=== PATIENT | female | born 1950 | race Caucasian/White ===

== ENCOUNTER 2020-04-26 08:04 | Outpatient (RCR) | payer MEDICARE, OTHER, SELFPAY ==
[2020-04-26] MEDS: COVID-19 VACC, MRNA(PFIZER)/PF 30 MCG/0.3 ML SYRINGE IM (12:57)
[2020-05-17] MEDS: COVID-19 VACC, MRNA(PFIZER)/PF 30 MCG/0.3 ML SYRINGE IM (12:56)
== END 2020-07-24 23:59 ==
LOC: IMMUN 08:04
PROVIDERS: PCP Family Medicine; Visit Provider Family Medicine
DX: Z23 Encounter for immunization (principal)
CPT/HCPCS: 0001A; 0002A; 91300

== ENCOUNTER → 2022-04-11 | Outpatient (CLI) | payer MEDICARE, SELFPAY ==
[2022-04-11 10:07] LABS: Erythrocyte Sedimentation Rate 27 mm/hr (0-30)
[2022-04-11 10:11] LABS: Absolute Lymphocyte Count 2.68 X10^3/uL (0.83-4.51); Absolute Neutrophil Count 4.6 X10^3/uL (2.0-7.7); Basophil# 0.07 X10^3/uL; Basophil% 0.9 % (0-1); Eosinophil# 0.31 X10^3/uL; Eosinophils% 3.8 % (0-5); Hematocrit 34.6 % (37-47); Hemoglobin 10.6 g/dL (12.0-15.0); Lymphocyte # 2.68 X10^3/ul (0.83-4.51); Lymphocyte % 33.1 % (19-41); Mean Corp Hgb Conc 30.6 g/dL (32-36); Mean Corpuscular Hgb 27.2 pg (27.0-32.0); Mean Corpuscular Volume 88.9 fL (81-99); Mean Platelet Vol. 8.9 fl (6.2-12.0); Monocyte# 0.43 X10^3/uL; Monocyte% 5.3 % (0-10); NRBC Flagged by Analyzer 0 % (0-5); Neutrophil # 4.59 X10^3/uL (2.7-7.7); Neutrophil % 56.7 % (47-70); Platelet Count 396 K/mm3 (150-450); RBC Distribution Width CV 14.2 % (11.6-14.6); RBC Distribution Width SD 45.7 fl (35.1-43.9); Red Blood Count 3.89 M/mm3 (4.2-5.4); White Blood Count 8.1 K/mm3 (4.4-11.0)
[2022-04-11 11:06] LABS: ALB/GLOB Ratio 0.8 RATIO (0.9-2.4); AST(SGOT) 19 U/L (15-37); Alanine Aminotransfer ALT/SGPT 27 U/L (13-56); Albumin, Serum 3.6 g/dL (3.2-5.0); Alkaline Phosphatase 56 U/L (45-117); Anion Gap 8 (5-15); BUN 23 mg/dL (7-18); BUN/Creat Ratio 20.9 RATIO (10-20); CRP 6.44 mg/L (0.0-3.0); Calcium,Total 9.3 mg/dL (8.5-10.1); Chloride 100 mmol/L (98-107); EST Glomerular Filtration Rate 52 mL/min (>60); Est Glom Filt Rate - Afr Amer 62 mL/min (>60); Globulin 4.3 g/dL (2.2-4.2); Glucose 163 mg/dL (74-106); LDH 161 U/L (84-246); Potassium 3.8 mmol/L (3.5-5.1); Protein, Total 7.9 g/dL (6.4-8.2); Sodium Level 138 mmol/L (136-145)
[2022-04-12 16:09] LABS: Anti-Centromere B Ab <0.2 AI (0.0-0.9); Anti-Chromatin <0.2 AI (0.0-0.9); Anti-Jo <0.2 AI (0.0-0.9); Anti-Scleroderma-70 AB <0.2 AI (0.0-0.9); RNP Ab <0.2 AI (0.0-0.9); SJOGREN'S Anti-SS-A test < 0.2 AI (0.0-0.9); SJOGREN'S Anti-SS-B test < 0.2 AI (0.0-0.9); Smith Ab <0.2 AI (0.0-0.9)
[2022-04-13 09:22] LABS: Anti-dsDNA Ab 1 IU/mL (0-9)
[2022-04-14 16:08] LABS: Endomysial Antibody IgA Negative (Negative)
[2022-04-14 21:04] LABS: Immunoglobulin A 297 mg/dL (64-422); t-Transglutaminase IgA <2 U/mL (0-3)
[2022-04-17 07:08] LABS: Albumin 3.5 g/dL (2.9-4.4); Alpha-1-Globulins 0.3 g/dL (0.0-0.4); Alpha-2-Globulins 1.1 g/dL (0.4-1.0); Cytoplasmic Ab (C-ANCA) <1:20 titer (Neg:<1:20); Gamma Globulin 1.2 g/dL (0.4-1.8); Immunoglobulin A 292 mg/dL (64-422); Immunoglobulin E 262 IU/mL (6-495); Immunoglobulin G 1182 mg/dL (586-1602); Immunoglobulin M 93 mg/dL (26-217); PROEL- TOTAL PROTEIN 7.3 g/dL (6.0-8.5)
[2022-04-17 18:35] LABS: IMMUNOFIXATION RESULT,S Comment: (.); Perinuclear Ab (P-ANCA) <1:20 titer (Neg:<1:20)
== END | disposition home or self-care (01) ==
LOC: CT 08:56 → LAB 09:41
PROVIDERS: PCP Family Medicine; Referring Provider Nurse Practitioner Adult Health; Visit Provider Nurse Practitioner Adult Health
DX: K52.9 Noninfective gastroenteritis and colitis, unspecified (principal); D64.9 Anemia, unspecified
CPT/HCPCS: 36415; 80053; 82784; 82785; 83516; 83615; 84165; 85025; 85652; 86140; 86225; 86235; 86255; 86256; 86334

== ENCOUNTER → 2022-04-12 | Outpatient (CLI) | payer MEDICARE, SELFPAY ==
[2022-04-17 18:38] LABS: Calprotectin, Stool 94 ug/g (0-120)
== END | disposition home or self-care (01) ==
LOC: LABSPEC 08:26
PROVIDERS: PCP Family Medicine; Visit Provider Nurse Practitioner Adult Health
DX: K52.9 Noninfective gastroenteritis and colitis, unspecified (principal); D84.9 Immunodeficiency, unspecified
CPT/HCPCS: 83630; 83993; 87493; 87506

== ENCOUNTER → 2022-04-17 | Outpatient (CLI) | payer MEDICARE, SELFPAY ==
--- NOTE | 2022-04-17 08:00 | CT_ITS ---
STUDY: CT ABDOMEN AND PELVIS WITH CONTRAST REASON FOR EXAM: Female, 72 years old. Lower abd pain, chronic diarrhea, anemia RADIATION DOSAGE (If Supplied By Facility): CTDIvol = ( 16.38 ) mGy, DLP = ( 1017.65 ) mGycm TECHNIQUE: Transaxial images were obtained from the dome of the diaphragm to the symphysis pubis with oral contrast. Oral and amp; IV Read i-CAT and amp; 100mL Isovue-370 was administered. Sagittal and coronal images were reconstructed. Individualized dose optimization techniques were used for this CT. COMPARISON: None. FINDINGS: The visualized lung bases are unremarkable. The visualized portions of the heart are within normal limits. There is decreased attenuation of the liver consistent with steatosis. There are surgical clips in the gallbladder fossa consistent with a prior cholecystectomy. Normal spleen. Normal pancreas. There is a small, circumscribed, smooth, low attenuation left adrenal mass, consistent with an adrenal adenoma. This measures 1.3 cm. Normal right adrenal gland. Right renal cysts. The largest cyst in the right kidney measures 6.5 cm x 4.3 cm. There is fullness of the left renal pelvis although no phoenix hydronephrosis seen. There is a small hiatal hernia. Normal small intestine. Normal colon. The appendix is visualized and appears normal. There is scattered atherosclerotic calcification of the abdominal aorta and its major visceral branches, without a demonstrated aneurysm. Normal inferior vena cava. Normal retroperitoneum. The urinary bladder is not completely distended at this time. There is absence of the uterus consistent with a prior hysterectomy. There is a small umbilical hernia containing fat. There are mild degenerative changes of the visualized lumbar spine. CT/Abdomen/Pelvis WITH Contrast IMPRESSION: Right renal cysts. Small left adrenal adenoma. Fenestration of the liver. Prior cholecystectomy and hysterectomy. Electronically Signed: Yovani Saavedra MD at 10:11 EST ,
== END | disposition home or self-care (01) ==
LOC: CT 07:59
PROVIDERS: PCP Family Medicine; Referring Provider Nurse Practitioner Adult Health; Visit Provider Nurse Practitioner Adult Health
DX: R10.32 Left lower quadrant pain (principal)
CPT/HCPCS: 74177; Q9967

== ENCOUNTER 2022-06-19 10:24 | Day surgery (SDC) | payer MEDICARE, SELFPAY ==
[2022-06-19] VITALS (7 sets, daily range): BP systolic 110–152; BP diastolic 36–52; PULSE 59–63; RESP 16; TEMP 36–36.6; O2SAT 94–100; BMI 32.4
--- NOTE | 2022-06-19 10:46 | HP.PCM_ITS ---
History and Physical Date of Admission: 06/19/22 72 F who presents to the office today to establish with GI for chronic diarrhea which began in approx 2017, about a year before she had cholecystectomy. No change in her bowels after cholecystectomy. She gets urgent diarrhea, mostly loose or watery stools, rare formed stools, can have multiple bouts of diarrhea per day, has accidents because of the urgency, no nocturnal diarrhea. Not necessarily related to eating. No particular triggers. Now taking 1/2 packet of cholestyramine daily (was constipated on a full packet), then stool is soft and almost formed, but still some days with diarrhea. Gets lots of cramping pain in lower abd, today LLQ, that precedes the diarrhea. No melena or hematochezia. Recently told she has anemia, and that she needs eval for GIB. Last colonoscopy 06/2018--negative bxs for microscopic colitis, had 2 tubular adenomas. Last EGD was 2012. On vitamin B 12 for about a year. Has been on metformin for many years. She takes omeprazole 40 mg daily, that controls her heartburn. She has occasional nausea, no vomiting. No dysphagia. No early satiety. Normal appetite. Weight is stable. PMH includes DM2, vitamin B 12 deficiency, GERD, HTN, hyperlipidemia PSH: cholecystectomy Exam Const General: cooperative, comfortable and no acute distress Nutritional Appearance: obese Orientation: alert, awake and oriented x3 HENMT Head: normal to inspection Eyes Conjunctivae: conjunctivae normal Sclera: sclerae normal Chest Chest palpation & inspection: normal inspection of the chest Resp Effort & Inspection: normal respiratory effort GI Inspection: normal to inspection Palpation: soft, no hepatosplenomegaly, no masses and nontender General: bladder normal to palpation Bimanual Exam- Vagina & Uterus: bladder normal to palpation Skin General: no rashes or lesions noted Neuro Speech: speech normal Gait: normal gait Psych Mood: congruent mood Quality Reporting Tobacco Screening ([facility] 138) Smoking Status: Never smoker Assessment and Plan Assessment and Plan (1) Chronic diarrhea: ?Status:?Chronic ?Plan: 72 yr old female with chronic diarrhea, some improvement with cholestyramine. DDx includes microscopic colitis, bile acid diarrhea, diverticular disease/SCAD, infection, IBS, IBD. Try 1/2 and 1/2 mixture of cholestyramine and psyllium husk Add dicyclomine 10 mg bid Blood tests today, stool tests for infection and inflammation CT abd pel w/ oral and IV EGD and colonoscopy, f/u 2 wks later to discuss bx results She hopes to travel out of state with family in July (2) Anemia: ?Plan: Will get recent lab results from primary care EGD and colonoscopy (3) GERD (gastroesophageal reflux disease): ?Status:?Chronic ?Plan: Continue omeprazole Get EGD to eval for keyes's, gastritis, enteritis ? ? ? Orders: Orders CRP Today K52.9 - Noninfective gastroenteritis and colitis, unspecified ? Erythrocyte Sed Rate Today K52.9 - Noninfective gastroenteritis and colitis, unspecified ? Calprotectin, Stool Today K52.9 - Noninfective gastroenteritis and colitis, unspecified ? ENTERIC PATHOGEN PANEL STOOL Today D84.9 - Immunodeficiency, unspecified, K52.9 - Noninfective gastroenteritis and colitis, unspecified, K58.9 - Irritable bowel syndrome without diarrhea ? Stool Lactoferrin/WBC Today K52.9 - Noninfective gastroenteritis and colitis, unspecified, K58.9 - Irritable bowel syndrome without diarrhea ? Celiac Disease Profile Today K52.9 - Noninfective gastroenteritis and colitis, unspecified ? CDIFF (PCR) Today K52.9 - Noninfective gastroenteritis and colitis, unspecified ? Comprehensive Metabolic Profil Today K52.9 - Noninfective gastroenteritis and colitis, unspecified ? LDH Today K52.9 - Noninfective gastroenteritis and colitis, unspecified ? CBC W/Diff, Automated Today D64.9 - Anemia, unspecified, K52.9 - Noninfective gastroenteritis and colitis, unspecified ? JENNIFER Comprehensive Panel Today K52.9 - Noninfective gastroenteritis and colitis, unspecified ? ANCA Today K52.9 - Noninfective gastroenteritis and colitis, unspecified ? Immunoglobulins G/A/M/E Today K52.9 - Noninfective gastroenteritis and colitis, unspecified ? SANTI + Protein Elect, Serum Today K52.9 - Noninfective gastroenteritis and colitis, unspecified ? Abdomen/Pelvis WITH Contrast Today R10.30 - Lower abdominal pain, unspecified ? Medications: New dicyclomine 10 mg? PO BID 60 caps 3RF ? ? I have examined the patient and the H&P has been reviewed. There are no clinical changes since date of exam.
[2022-06-19] MEDS: Lactated Ringers 1,000 ML 15 ML IV (10:49)
--- NOTE | 2022-06-19 11:30 | COLBX_PTH ---
PATIENT: TIFFANY AYERS LOC: EN U#:[id number] AGE/SX: 72/F ROOM: RE06/19/[address]: Dr. Chapin Underwood DO : 1950 BED: DIS: 06/19/2022 SPEC #: [id number] RECD: 06/19/22 14:53 STATUS: JUAN MANUEL REJeniffer #: [id number] ADEN: 06/19/22 11:[address]: Chapin Underwood DEPT: SURGICAL PATHOLOGY RECD BY: Melinda Rodriguez ENTERED: 06/20/22 12:30 SP TYPE: COLON BX OTHR DR: Dr. Alpesh Marroquin DO Tissues: A - Duodenum, NOS B - Ileum, NOS C - COLON BIOPSY Procedures: Surgery Specimen Level IV HEADER OPERATION: Colonoscopy with biopsies, EGD with biopsy ([facility]) PRE-OP DIAGNOSIS: Chronic diarrhea, anemia TISSUE SUBMITTED: A ? Duodenum biopsy, B ? Terminal ileum biopsy, C ? Random colon biopsy MICROSCOPIC DIAGNOSIS A. Duodenum, biopsy: No pathologic change. B. Terminal ileum, biopsy: No pathologic change. C. Colon, random biopsy: No pathologic change. AM:abel 06/23/2022 MICROSCOPIC DESCRIPTION Slides are reviewed. GROSS DESCRIPTION A - Received in fixative is one container labeled with the patient's name and designated duodenum biopsy. The specimen consists of two irregular fragments of light sumner soft tissue that in aggregate measure 1.0 x 0.5 x 0.1 cm. The specimen is totally submitted in one cassette. B - Received in fixative is one container labeled with the patient's name and designated terminal ileum biopsy. The specimen consists of two irregular fragments of light sumner soft tissue that in aggregate measure 0.8 x 0.5 x 0.1 cm. The specimen is totally submitted in one cassette. C - Received in fixative is one container labeled with the patient's name and designated random colon biopsy. The specimen consists of multiple irregular fragments of light sumner soft tissue that in aggregate measure 1.5 x 0.5 x 0.1 cm. The specimen is totally submitted in one cassette. / BENJI:abel 06/20/2022 TC:5 CPT: 42196 x3
--- NOTE | 2022-06-19 12:24 | OP.EGD_ITS ---
Patient Name: Cata Bosch Procedure Date: 06/19/2022 11:47 AM Date of : 1950 Age: 72 Procedure: Upper GI endoscopy Indications: Iron deficiency anemia Providers: Chapin Underwood DO Referring MD: Chapin Underwood DO Medicines: Monitored Anesthesia Care Patient Profile: This is a 72 year old female. Refer to note in patient chart for documentation of history and physical. Patient has symptoms of chronic abdominal cramping and chronic dyspepsia. Complications: No immediate complications. Procedure: Pre-Anesthesia Assessment: - Prior to the procedure, a History and Physical was performed, and patient medications and allergies were reviewed. The risks and benefits of the procedure and the sedation options and risks were discussed with the patient. All questions were answered and informed consent was obtained. Patient identification and proposed procedure were verified by the physician in the pre-procedure area. Mental Status Examination: alert and oriented. Airway Examination: normal oropharyngeal airway and neck mobility. Respiratory Examination: clear to auscultation. CV Examination: normal. Prophylactic Antibiotics: The patient does not require prophylactic antibiotics. Prior Anticoagulants: The patient has taken no previous anticoagulant or antiplatelet agents. ASA Grade Assessment: II - A patient with mild systemic disease. After reviewing the risks and benefits, the patient was deemed in satisfactory condition to undergo the procedure. The anesthesia plan was to use monitored anesthesia care (MAC). Immediately prior to administration of medications, the patient was re-assessed for adequacy to receive sedatives. The heart rate, respiratory rate, oxygen saturations, blood pressure, adequacy of pulmonary ventilation, and response to care were monitored throughout the procedure. The physical status of the patient was re-assessed after the procedure. After obtaining informed consent, the endoscope was passed under direct vision. Throughout the procedure, the patient's blood pressure, pulse, and oxygen saturations were monitored continuously. The pediatric colonoscope was introduced through the mouth, and advanced to the second part of duodenum. The upper GI endoscopy was accomplished without difficulty. The patient tolerated the procedure well. Scope In: 11:55:26 AM Scope Out: 12:00:30 PM Total Procedure Duration Time 0 hours 5 minutes 4 seconds Findings: The examined esophagus was normal. The entire examined stomach was normal. A small hiatal hernia was present. Patchy mildly erythematous mucosa without active bleeding and with no stigmata of bleeding was found in the duodenal bulb and in the second portion of the duodenum. Biopsies were taken with a cold forceps for histology. Verification of patient identification for the specimen was done. Estimated blood loss was minimal. Impression: - Normal esophagus. - Normal stomach. - Small hiatal hernia. - Erythematous duodenopathy. Biopsied. Recommendation: - Discharge patient to home. - Resume previous diet. - Continue present medications. - Await pathology results. Procedure Code(s): --- Professional --- 15618, Esophagogastroduodenoscopy, flexible, transoral; with biopsy, single or multiple CPT copyright 2017 [employer]. All rights reserved. The codes documented in this report are preliminary and upon slasher operator review may be revised to meet current compliance requirements. Chapin Underwood DO 06/19/2022 12:23:37 PM This report has been signed electronically. Number of Addenda: 0 Note Initiated On: 06/19/2022 11:47 AM
--- NOTE | 2022-06-19 12:24 | OP.CCLET_ITS ---
06/19/2022 Alpesh Marroquin Re : Upper GI endoscopy procedure for Cata Bosch Dear Lopez This procedure was performed on June. My impressions and recommendations are as follows: Impressions : - Normal esophagus. - Normal stomach. - Small hiatal hernia. - Erythematous duodenopathy. Biopsied. Recommendations : - Discharge patient to home. - Resume previous diet. - Continue present medications. - Await pathology results. My findings are described in the full procedure note, which is enclosed. If I can be of further assistance, please feel free to contact me at . Sincerely, Chapin Underwood, 06/19/2022 12:23:37 PM This report has been signed electronically.
--- NOTE | 2022-06-19 12:31 | OP.COLON_ITS ---
Patient Name: Cata Bosch Procedure Date: 06/19/2022 12:01 PM Date of : 1950 Age: 72 Procedure: Colonoscopy Indications: Chronic diarrhea, Iron deficiency anemia Providers: Chapin Underwood DO Referring MD: Chapin Underwood DO Medicines: Monitored Anesthesia Care Patient Profile: This is a 72 year old female. Refer to note in patient chart for documentation of history and physical. Patient has symptoms of chronic abdominal cramping and chronic dyspepsia. Last Colonoscopy: several years ago. Complications: No immediate complications. Procedure: Pre-Anesthesia Assessment: - Prior to the procedure, a History and Physical was performed, and patient medications and allergies were reviewed. The risks and benefits of the procedure and the sedation options and risks were discussed with the patient. All questions were answered and informed consent was obtained. Patient identification and proposed procedure were verified by the physician in the pre-procedure area. Mental Status Examination: alert and oriented. Airway Examination: normal oropharyngeal airway and neck mobility. Respiratory Examination: clear to auscultation. CV Examination: normal. Prophylactic Antibiotics: The patient does not require prophylactic antibiotics. Prior Anticoagulants: The patient has taken no previous anticoagulant or antiplatelet agents. ASA Grade Assessment: II - A patient with mild systemic disease. After reviewing the risks and benefits, the patient was deemed in satisfactory condition to undergo the procedure. The anesthesia plan was to use monitored anesthesia care (MAC). Immediately prior to administration of medications, the patient was re-assessed for adequacy to receive sedatives. The heart rate, respiratory rate, oxygen saturations, blood pressure, adequacy of pulmonary ventilation, and response to care were monitored throughout the procedure. The physical status of the patient was re-assessed after the procedure. After I obtained informed consent, the scope was passed under direct vision. Throughout the procedure, the patient's blood pressure, pulse, and oxygen saturations were monitored continuously. The pediatric colonoscope was introduced through the anus and advanced to the terminal ileum. The colonoscopy was performed without difficulty. The patient tolerated the procedure well. The quality of the bowel preparation was good. Scope In: 12:03:06 PM Scope Withdrawal Time 0 hours 10 minutes 18 seconds Scope Out: 12:16:47 PM Total Procedure Duration Time 0 hours 13 minutes 41 seconds Findings: The perianal and digital rectal examinations were normal. An area of mildly congested mucosa was found in the sigmoid colon, at the splenic flexure, at the hepatic flexure and in the ascending colon. Biopsies were taken with a cold forceps for histology. Verification of patient identification for the specimen was done. Estimated blood loss was minimal. One small patchy angiodysplastic lesion with bleeding was found [Site]. Coagulation for hemostasis using monopolar probe was successful. Estimated blood loss was minimal. The terminal ileum contained two small angiodysplastic lesions with bleeding. Coagulation for hemostasis using heater probe was successful. Estimated blood loss was minimal. Impression: - Congested mucosa in the sigmoid colon, at the splenic flexure, at the hepatic flexure and in the ascending colon. Biopsied. - One bleeding colonic angiodysplastic lesion. Treated with a monopolar probe. - Two bleeding angiodysplastic lesions in the ileum. Treated with a heater probe. Recommendation: - Discharge patient to home. - Resume previous diet. - Continue present medications. - Await pathology results. - No repeat colonoscopy due to age. Procedure Code(s): --- Professional --- 27027, 59, Colonoscopy, flexible; with control of bleeding, any method 76843, Colonoscopy, flexible; with biopsy, single or multiple CPT copyright 2017 [employer]. All rights reserved. The codes documented in this report are preliminary and upon auditing coder review may be revised to meet current compliance requirements. Chapin Underwood DO 06/19/2022 12:31:07 PM This report has been signed electronically. Number of Addenda: 0 Note Initiated On: 06/19/2022 12:01 PM
--- NOTE | 2022-06-19 12:31 | OP.CCLET_ITS ---
06/19/2022 Alpesh Marroquin Re : Colonoscopy procedure for Cata Bosch Dear Lopez This procedure was performed on June. My impressions and recommendations are as follows: Impressions : - Congested mucosa in the sigmoid colon, at the splenic flexure, at the hepatic flexure and in the ascending colon. Biopsied. - One bleeding colonic angiodysplastic lesion. Treated with a monopolar probe. - Two bleeding angiodysplastic lesions in the ileum. Treated with a heater probe. Recommendations : - Discharge patient to home. - Resume previous diet. - Continue present medications. - Await pathology results. - No repeat colonoscopy due to age. My findings are described in the full procedure note, which is enclosed. If I can be of further assistance, please feel free to contact me at . Sincerely, Chapin Underwood, 06/19/2022 12:31:07 PM This report has been signed electronically.
== END 2022-06-19 13:22 | disposition home or self-care (01) ==
LOC: EN 10:25 → AC 10:28
PROVIDERS: PCP Family Medicine; Referring Provider Family Medicine; Visit Provider Internal Medicine Gastroenterology
PROC: 0DJD8ZZ Inspection of Lower Intestinal Tract, Via Natural or Artificial Opening Endoscopic (ICD-10-PCS; CPT 45378; principal; 2022-06-19 11:25)
DX: K52.9 Noninfective gastroenteritis and colitis, unspecified (principal); E11.9 Type 2 diabetes mellitus without complications; K44.9 Diaphragmatic hernia without obstruction or gangrene; D50.0 Iron deficiency anemia secondary to blood loss (chronic); K63.9 Disease of intestine, unspecified; Z90.49 Acquired absence of other specified parts of digestive tract; I10 Essential (primary) hypertension; Z79.899 Other long term (current) drug therapy; E78.00 Pure hypercholesterolemia, unspecified
CPT/HCPCS: 45380; 43239; 45382; 88305; J7120

== ENCOUNTER → 2022-07-16 | Outpatient (CLI) | payer MEDICARE, SELFPAY ==
[2022-07-16 10:23] LABS: Absolute Lymphocyte Count 2.87 X10^3/uL (0.83-4.51); Absolute Neutrophil Count 3.6 X10^3/uL (2.0-7.7); Basophil# 0.07 X10^3/uL; Basophil% 0.9 % (0-1); Eosinophil# 0.33 X10^3/uL; Eosinophils% 4.5 % (0-5); Hematocrit 34.3 % (37-47); Hemoglobin 10.3 g/dL (12.0-15.0); Lymphocyte # 2.87 X10^3/ul (0.83-4.51); Lymphocyte % 38.9 % (19-41); Mean Corpuscular Hgb 26.8 pg (27.0-32.0); Mean Corpuscular Volume 89.1 fL (81-99); Monocyte% 6.8 % (0-10); NRBC Flagged by Analyzer 0 % (0-5); Neutrophil # 3.59 X10^3/uL (2.7-7.7); Neutrophil % 48.6 % (47-70); Platelet Count 397 K/mm3 (150-450); RBC Distribution Width CV 14.2 % (11.6-14.6); RBC Distribution Width SD 46.3 fl (35.1-43.9); Red Blood Count 3.85 M/mm3 (4.2-5.4); White Blood Count 7.4 K/mm3 (4.4-11.0)
[2022-07-16 11:17] LABS: Ferritin 12 ng/mL (8-252); Iron 42 ug/dL (50-170); Iron Binding Capacity,Total 444 ug/dL (250-450); PERCENT IRON SATURATION 9.5 % (15.0-55.0)
== END | disposition home or self-care (01) ==
LOC: LAB 09:17
PROVIDERS: PCP Family Medicine; Referring Provider Nurse Practitioner Adult Health; Visit Provider Nurse Practitioner Adult Health
DX: K52.9 Noninfective gastroenteritis and colitis, unspecified (principal); D64.9 Anemia, unspecified
CPT/HCPCS: 36415; 82728; 83540; 83550; 85025

== ENCOUNTER 2024-06-10 16:30 | Emergency (ER) | payer MEDICARE, SELFPAY ==
[2024-06-10 16:33] VITALS: BP 136/64; PULSE 63; RESP 13; TEMP 36.5; O2SAT 95; BMI 31.4
--- NOTE | 2024-06-10 16:57 | EX.ED.DYSGE1 ---
HPI History of Present Illness Chief Complaint: General Illness Informant: patient Narrative Narrative: Presents by EMS from home states grandson called EMS patient states she may have passed out. Started on new diabetic medication 3 days ago Jardiance started by her primary care office. She states she stopped her metformin 10 days ago due to causing diarrhea. New medication was started she is currently on glimepiride with this. She states she is doing okay prior to starting the medication. Since then increasing nausea. States with EMS arrival she had a few emesis no hematemesis. No abdominal pain no chest pain no dyspnea. No fevers. She states she is feels fatigued and tired. Denies urinary symptoms. Prior similar symptoms: No PFSH PFSH Medical History Wears dentures Wears glasses Post-menopausal Diabetes Arthritis Kidney stones Fatty liver Anemia High cholesterol Dietary restriction Gastric reflux Non-smoker History of pain when walking History of edema Hypercholesteremia Type 2 diabetes mellitus Lumbar disc disease Cholelithiasis GERD (gastroesophageal reflux disease) Vitamin B12 deficiency Cystoid macular edema HTN (hypertension) Renal cyst Home Medications ?Medication ?Instructions ?Recorded ?Last Taken ?Type amlodipine 5 mg tablet 5 mg PO DAILY 04/02/22 06/19/22 09:30 History atorvastatin 10 mg tablet 10 mg PO DAILY 04/02/22 Unknown History cholestyramine (with sugar) 4 gram 0.5 ea PO QHS 04/02/22 Unknown History oral powder glimepiride 4 mg tablet 4 mg PO DAILY 04/02/22 Unknown History mecobalamin (vitamin B12) 500 mcg 500 mcg PO DAILY 04/02/22 Unknown History chewable tablet metformin 500 mg tablet 1,000 mg PO BID 04/02/22 Unknown History omeprazole 40 mg capsule,delayed 40 mg PO DAILY 04/02/22 Unknown History release losartan 100 1 tab PO DAILY 06/17/22 Unknown History mg-hydrochlorothiazide 12.5 mg tablet dicyclomine 20 mg tablet 20 mg PO BID #180 tabs 07/16/22 Unknown Rx ondansetron 4 mg disintegrating 4 mg PO Q8H PRN PRN Nausea #10 tabs 06/10/24 Unknown Rx tablet Allergy/AdvReac Type Severity Reaction Status Date / Time kiwi Allergy Intermediate Swelling Verified 06/10/24 16:35 lisinopril Allergy Intermediate Other Verified 06/10/24 16:35 cat dander (cats) Allergy Itching Verified 06/10/24 16:40 Family History Father Prostate cancer Brother Hx of resection of large bowel PAD (peripheral artery disease) Mother Rheumatoid arthritis Sister Diabetes Brother Diabetes Surgical History History of partial hysterectomy History of cholecystectomy Social History Smoking Status: Never smoker alcohol intake: never ROS ROS ED Constitutional Constitutional ED: Denies chills, fever(s) or sweats ENT ENT ED: Denies sore throat Cardiovascular Cardiovascular: Reports other Details: Possible syncope ; Denies chest pain, leg edema, palpitations or racing heartbeat Respiratory/Chest Respiratory/Chest: Denies cough, dyspnea or dyspnea on exertion Gastrointestinal Gastrointestinal: Reports nausea and vomiting; Denies abdominal pain or diarrhea Genitourinary Genitourinary ED: Denies dysuria, hematuria or urinary frequency Musculoskeletal Musculoskeletal: Denies back pain, extremity pain or neck pain Integumentary Denies rash or wounds Neurologic Neurologic: Denies headache(s), paresthesias or weakness EXAM Physical Exam Const Vital Signs: 06/10/24 16:33 06/10/24 18:09 06/10/24 18:30 Temperature 97.7 F L Temperature Source Oral Pulse Rate 63 70 Respiratory Rate 13 Respiratory Effort Normal Non-Labored Blood Pressure 136/64 H 132/5 H Blood Pressure Mean 88 47 Pulse Ox 95 93 Oxygen Delivery Method Room Air Room Air 06/10/24 19:27 06/10/24 19:55 Temperature 97.7 F L Temperature Source Pulse Rate 64 64 Respiratory Rate 16 16 Respiratory Effort Blood Pressure 136/54 H 139/50 H Blood Pressure Mean 81 79 Pulse Ox 98 98 Oxygen Delivery Method Room Air Positive well nourished and well developed General Appearance ED: well developed and NAD HEENT Reports moist mucous membranes normocephalic and atraumatic Eyes General Eye ED: Yes normal appearance of both eyes Neck full ROM Chest Wall Chest: Negative for tenderness Resp normal respiratory effort and normal air movement Effort and Inspection: symmetric chest movement; Negative for respiratory distress Cardio regular rate, regular rhythm and no murmurs Peripheral Pulses: pulses 2+ throughout GI normal to inspection, nondistended, normoactive bowel sounds and non-tender Palpation: Negative for guarding or rebound tenderness present Extremity normal to inspection General Extremety ED: Negative for edema or tenderness General Extremity: Negative for edema Neuro oriented x3, CN's II-XII intact bilaterally and no sensory deficits noted Neuro Narrative: No focal deficits Sensorium / Orientation: awake and alert Skin no rashes or lesions noted and no wounds MDM MDM MDM Narrative Medical decision making narrative: Interventions / MDM: Differential diagnosis: Syncope, nausea vomiting, medication side effect Diagnosis considered but do not suspect: N/A My EKG interpretation: Sinus rate of 60, no ST or T wave changes QTc 438. Imaging independently reviewed and interpreted by myself: N/A External documents reviewed: N/A Test considered but not ordered:N/A ED course: Vital stable no focal deficits. Possible syncopal episode per patient. No prodromal chest pains or shortness of breath. EKG ordered. Symptoms worsen after starting Jardiance. She has nausea currently. IV established for labs urine fluids and Zofran ordered. Will reevaluate. Reevaluated labs are stable. Clinically feeling better she ambulated department no return of symptoms. She is able to tolerate oral fluids reevaluation. Prescription of Zofran to use as needed. She will discuss with her primary doctor with her Jardiance medication as she start having symptoms after this. family present. Following up with her doctor with return precautions. All questions were answered. Re-evaluation: stable Disposition discussed with patient/family/significant other: Patient and family Case discussed with consulting clinician: N/A This note was generated with [employer] dictation software. It may contain incorrect words, spelling, and punctuation that were not noted in checking the note before signing. Lab Data Attestation: I reviewed the patient's lab results. Labs: Laboratory Results - last 24 hr 06/10/24 06/10/24 16:53 18:10 WBC 9.0 RBC 3.76 L Hgb 10.4 L Hct 31.8 L MCV 84.6 MCH 27.7 MCHC 32.7 RDW Std Deviation 41.6 RDW Coeff of Nik 13.4 Plt Count 485 H MPV 9.0 Immature Gran % (Auto) 0.900 Neut % (Auto) 54.3 Lymph % (Auto) 35.7 Howell % (Auto) 6.6 Eos % (Auto) 1.6 Baso % (Auto) 0.9 Absolute Neuts (auto) 4.9 Absolute Lymphs (auto) 3.20 Nucleated RBC % 0 Sodium 139 Potassium 3.9 Chloride 99 Carbon Dioxide 22.4 Anion Gap 18 H BUN 24 H Creatinine 1.26 H Estim Creat Clear Calc 38.14 L Est GFR (MDRD) Non-Af 44 L BUN/Creatinine Ratio 19.2 Glucose 217 H Calcium 9.7 Urine Color Yellow Urine Clarity Clear Urine pH 6.0 Ur Specific [place] 1.010 Urine Protein Negative Urine Glucose (UA) 1000 H Urine Ketones 15 H Urine Occult Blood Negative Urine Nitrite Negative Urine Bilirubin Negative Urine Urobilinogen Normal Ur Leukocyte Esterase 25 H Urine RBC 0 SEEN Urine WBC 0-5 SEEN Ur Squamous Epith Cells 0-5 SEEN Urine Bacteria 0 SEEN Urine Mucus 0 SEEN Discharge Plan Triage Chief Complaint: General Illness ED Provider: Kendrick Nunes Dx/Rx/DC Orders Clinical Impression: Syncope, Nausea & vomiting, Diabetes Instructions: Causes of Syncope, ED Vomiting (Adult) Prescriptions: New ondansetron 4 mg tablet,disintegrating 4 mg PO Q8H PRN PRN (Reason: Nausea) Qty: 10 0RF No Action cholestyramine (with sugar) 4 gram powder 0.5 ea PO QHS metformin 500 mg tablet 1,000 mg PO BID amlodipine 5 mg tablet 5 mg PO DAILY atorvastatin 10 mg tablet 10 mg PO DAILY mecobalamin (vitamin B12) 500 mcg tablet,chewable 500 mcg PO DAILY glimepiride 4 mg tablet 4 mg PO DAILY omeprazole 40 mg capsule,delayed release(DR/EC) 40 mg PO DAILY dicyclomine 20 mg tablet 20 mg PO BID Qty: 180 3RF losartan-hydrochlorothiazide 100-12.5 mg tablet 1 tab PO DAILY Patient Comments: TAKE 1 TABLET BY MOUTH EVERY DAY Primary Care Provider: Alpesh Marroquin Referrals: Alpesh Marroquin DO [Primary Care Provider] - Activity Restrictions/Additional Instructions: Your EKG normal. Labs are stable. Glucose 217 in the lab. Discussed with your doctor your Jardiance causing your nausea symptoms. Hold the Jardiance for now until discussion with your doctor. Continue oral fluids for hydration. If you have recurrent syncopal episode, return to the ED for reevaluation. Print Language: Somali Disposition Disposition: Home, Self Care Discharge Date/Time: 06/10/24 20:02
[2024-06-10] MEDS: 0.9% Normal Saline (1000mL) 1,000 ML 1000 ML IV (17:03)
[2024-06-10] MEDS: Ondansetron 4 MG/2 ML Vial IV (17:04)
[2024-06-10 17:41] LABS: Bacteria 0 SEEN /hpf (None Seen); Mucous, Urine 0 SEEN /hpf (<or=2+); Red Blood Cells-Urine 0 SEEN /hpf (0-5)
[2024-06-10 18:11] LABS: Absolute Neutrophil Count 4.9 X10^3/uL (2.0-7.7); Basophil# 0.08 X10^3/uL; Basophil% 0.9 % (0-1); Eosinophil# 0.14 X10^3/uL; Eosinophils% 1.6 % (0-5); Hematocrit 31.8 % (37-47); Hemoglobin 10.4 g/dL (12.0-15.0); Lymphocyte % 35.7 % (19-41); Mean Corp Hgb Conc 32.7 g/dL (32-36); Mean Corpuscular Hgb 27.7 pg (27.0-32.0); Mean Corpuscular Volume 84.6 fL (81-99); Monocyte# 0.59 X10^3/uL; Monocyte% 6.6 % (0-10); NRBC Flagged by Analyzer 0 % (0-5); Neutrophil # 4.87 X10^3/uL (2.7-7.7); Neutrophil % 54.3 % (47-70); Platelet Count 485 K/mm3 (150-450); RBC Distribution Width CV 13.4 % (11.6-14.6); RBC Distribution Width SD 41.6 fl (35.1-43.9); Red Blood Count 3.76 M/mm3 (4.2-5.4)
[2024-06-10 18:14] LABS: Anion Gap 18 (5-15); BUN 24 mg/dL (4-19); BUN/Creat Ratio 19.2 RATIO (10-20); Calcium,Total 9.7 mg/dL (7.6-11.0); Carbon Dioxide 22.4 mmol/L (21.0-32.0); Chloride 99 mmol/L (98-108); Creatinine, Serum 1.26 mg/dL (0.70-1.20); EST Glomerular Filtration Rate 44 (>60); Estimated Creatinine Clearance 38.14 ml/min (50-250); Glucose 217 mg/dL (70-99); Potassium 3.9 mmol/L (3.3-5.1); Sodium Level 139 mmol/L (133-145)
[2024-06-10 18:30] VITALS: BP 132/5; PULSE 70; O2SAT 93
[2024-06-10 18:40] LABS: Color, Urine Yellow (Yellow); Glucose, Dipstick 1000 mg/dl (Normal); Ketone-Dipstick 15 mg/dl (Negative); Leukocyte Esterase-Dipstick 25 /ul (Negative); Nitrite-Dipstick Negative (Negative); Occult Blood-Urine Negative /ul (Negative); Protein-Dipstick Negative (Negative); Urine Bilirubin Dipstick Negative (Negative); Urine Clarity Clear (Clear); Urine Urobilinogen Normal (Normal)
[2024-06-10 19:07] LABS: Squamous Epithelial Cells - UA 0-5 SEEN /hpf (5-10)
[2024-06-10 19:08] LABS: White Blood Cells 0-5 SEEN /hpf (0-5)
[2024-06-10 19:27] VITALS: BP 136/54; PULSE 64; RESP 16; O2SAT 98
[2024-06-10 19:55] VITALS: BP 139/50; PULSE 64; RESP 16; TEMP 36.5; O2SAT 98
== END 2024-06-10 20:02 | disposition home or self-care (01) ==
PROVIDERS: Emergency Provider Emergency Medicine; PCP Family Medicine; Visit Provider Emergency Medicine
DX: R55 Syncope and collapse (principal); E11.9 Type 2 diabetes mellitus without complications; R11.2 Nausea with vomiting, unspecified; R19.7 Diarrhea, unspecified; E78.00 Pure hypercholesterolemia, unspecified; I10 Essential (primary) hypertension; K21.9 Gastro-esophageal reflux disease without esophagitis; Z79.84 Long term (current) use of oral hypoglycemic drugs; Z79.899 Other long term (current) drug therapy
CPT/HCPCS: 80048; 81001; 85025; 93005; 96361; 96374; 99285; A4216; J2405

== ENCOUNTER → 2024-09-27 | Outpatient (CLI) | payer MEDICARE, SELFPAY ==
[2024-09-27 11:02] LABS: Hematocrit 34.9 % (37-47); Hemoglobin 10.7 g/dL (12.0-15.0); Immature Granulocytes Count 0.030 X10^3/uL (0.0-0.0); Mean Corp Hgb Conc 30.7 g/dL (32-36); Mean Corpuscular Volume 91.4 fL (81-99); Mean Platelet Vol. 9.4 fl (6.2-12.0); NRBC Flagged by Analyzer 0 % (0-5); Platelet Count 333 K/mm3 (150-450); RBC Distribution Width CV 13.8 % (11.6-14.6); RBC Distribution Width SD 45.6 fl (35.1-43.9); Red Blood Count 3.82 M/mm3 (4.2-5.4); White Blood Count 7.7 K/mm3 (4.4-11.0)
== END | disposition home or self-care (01) ==
LOC: LAB 10:07
PROVIDERS: PCP Family Medicine; Referring Provider Student in an Organized Health Care Education/Training Program; Visit Provider Student in an Organized Health Care Education/Training Program
DX: D64.9 Anemia, unspecified (principal)
CPT/HCPCS: 36415; 85025

== ENCOUNTER 2024-11-10 06:34 | Day surgery (SDC) | payer MEDICARE, SELFPAY ==
--- NOTE | 2024-11-09 11:55 | PAT.ANE_ITS ---
Pre-Assessment Diagnosis/Proposed Procedure Planned Operative Procedure(s): COLONOSCOPY, EGD Anesthesia History Anesthesia History - blister packing machine tender: Anesthesia History - blister packing machine tender Hx Hospitalization No 11/07/24 10:47 Any Problems With Anesthesia Yes: PONV 11/07/24 10:47 Cholinesterase deficiency No 11/07/24 10:47 You/Your Family Experience No 11/07/24 10:47 fever (hyperthermia) with Relationship Recent Exposure to Contagious No 06/19/22 10:47 Disease Does patient have nerve No 11/07/24 10:47 stimulator Patient instructed to have device shut off --Does patient have Pacemaker or ICD? When Was Last Pacemaker Check QUESTION #4 FULL TEXT: You/Your Family Experience fever (hyperthermia) with Anesthesia Last Oral Intake Last Oral intake: Last Oral Intake NPO since Meds taken in AM with sips of water? Meds patient instructed to take am of surgery PONV PONV - blister packing machine tender: PONV - blister packing machine tender Female Yes 11/07/24 10:47 HX of Motion Sickness Yes 11/07/24 10:47 HX of N/V After Surgery Yes 11/07/24 10:47 Non-Smoker Yes 11/07/24 10:47 Duration of Surgery greater No 11/07/24 10:47 than 60 minutes Number of Risk Factors 4 11/07/24 10:47 PONV Score Severe Risk 11/07/24 10:47 Height & Weight Height & Weight: Anesthesia: Height & Weight Height 5 ft 3 in 06/10/24 16:33 Respiratory Assessment Respiratory Assessment - blister packing machine tender: Respiratory Tract Infection Hx - blister packing machine tender Hx Respiratory Tract Infection No 11/07/24 10:47 STOP Sleep Apnea STOP Sleep Apnea - blister packing machine tender: STOP Sleep Apnea - blister packing machine tender Hx Hypertension Yes: PER PT, CONTROLLED ON 11/07/24 10:47 MEDS Hx Sleep Apnea No 11/07/24 10:47 CPAP BIPAP Do you snore loudly (louder No 11/07/24 10:47 than talking or can be heard Do you often feel tired/ No 11/07/24 10:47 fatigued/ sleepy during daytime? Has anyone observed you stop No 11/07/24 10:47 breathing during sleep? STOP Results Negative 11/07/24 10:47 QUESTION #5 FULL TEXT : Do you snore loudly (louder than talking or can be heard through closed doors)? Tobacco Use History Tobacco Use History - blister packing machine tender: Tobacco Use History - blister packing machine tender Tobacco Use Smoking Status Never smoker 11/07/24 10:47 Hx Tobacco Use No 11/07/24 10:47 Years Smoking Packs Smoked per Day Smoking Cessation Date was within the last 15 years Hx Smoking Cessation Date Hx Smoking Cessation Counseling Hematologic Medial History Hematologic Hx - blister packing machine tender: Hematologic Medical Hx - rn clinical documentation Hx of Blood Transfusion No 11/07/24 10:47 Hx of Transfusion in last 3 No 11/07/24 10:47 Months Date of Last Transfusion (if within last 3 months) Ever experience any problems No 11/07/24 10:47 with transfusion(s)? Specify any problems Hx of Preganancy in last 3 No 11/07/24 10:47 Months Nurse Filling Out Transfusion JUANPABLO 11/07/24 10:47 & Questions: Date: 11/07/24 11/07/24 10:47 Time: 10:49 11/07/24 10:47 Patient unable to answer at this time (ie. confused, unrespo /Reproduction History /Reproductive History - blister packing machine tender: /Reproductive Hx- blister packing machine tender Hx Now No 11/07/24 10:47 Gestational Age (in weeks): EDC: Hx Hx Para Hx Section SAB No 11/07/24 10:47 [facility] Medical History (Updated 11/07/24 @ 11:10 by Adali Hooper) Low iron Shortness of breath on exertion Leg cramps History of echocardiogram History of pulmonary embolism History of DVT (deep vein thrombosis) PONV (postoperative nausea and vomiting) Wears dentures Wears glasses Post-menopausal Diabetes Arthritis Kidney stones Fatty liver Anemia High cholesterol Dietary restriction Gastric reflux Non-smoker History of pain when walking History of edema Hypercholesteremia Type 2 diabetes mellitus Lumbar disc disease Cholelithiasis GERD (gastroesophageal reflux disease) Vitamin B12 deficiency Cystoid macular edema HTN (hypertension) Renal cyst Home Medications ?Medication ?Instructions ?Recorded ?Last Taken ?Type atorvastatin 10 mg tablet 10 mg PO DAILY 04/02/22 Unkn own History glimepiride 4 mg tablet 4 mg PO BID 04/02/22 Unknown History mecobalamin (vitamin B12) 500 mcg 500 mcg PO DAILY Unknown History chewable tablet omeprazole 40 mg capsule,delayed 40 mg PO DAILY Unknown History release losartan 100 0.5 tab PO QHS 06/17/22 Unkn own History mg-hydrochlorothiazide 12.5 mg tablet apixaban 2.5 mg tablet (Eliquis) 2.5 mg PO BID 5 11/06/24 History empagliflozin 25 mg tablet 25 mg PO QAM 09/27/2411/07 History (Jardiance) ferrous sulfate 325 mg (65 mg 325 mg PO BID 09/27/24 U nknown History iron) tablet Allergy/AdvReac Type Severity Reaction Status Date / Time kiwi Allergy Intermediate Swelling Verified 11/07/24 10:41 lisinopril Allergy Intermediate Other Verified 11/07/24 10:41 cat dander (cats) Allergy Itching Verified 11/07/24 10:41 Family History Father Prostate cancer Brother Hx of resection of large bowel PAD (peripheral artery disease) Mother Rheumatoid arthritis Sister Diabetes Brother Diabetes Surgical History (Updated 11/07/24 @ 10:47 by Adali Hooper) History of esophagogastroduodenoscopy (EGD) History of colonoscopy History of shoulder surgery History of partial hysterectomy History of cholecystectomy Social History Smoking Status: Never smoker alcohol intake: never Audit: Pertinent Findings Pertinent Findings EKG Perinent findings: EKG 06/10/2024. Normal sinus rhythm Echo (EF%) pertinent findings: Echo 11/17/2023 left ventricle size is normal. Mildly increased wall thickness. Normal left ventricular systolic function EF 58%. Normal wall motion. Right ventricular size is normal. Normal systolic function. Recommendation Anesthesia Recommendation Anesthesia recommendation: OPTIMIZED for anesthesia
[2024-11-10] VITALS (8 sets, daily range): BP systolic 112–146; BP diastolic 52–63; PULSE 52–62; RESP 12–16; TEMP 36.2–36.4; O2SAT 100; BMI 29.5
--- OUTSIDE RECORDS SUMMARY | 2024-11-10 06:40 | XMS RPT_ITS | CCD ---
Author Organization [facility] Care Team Providers Care Airveyor Operator Name Role Phone Alpesh Marroquin DO Primary Care Provider Dr. Alpesh Marroquin Primary Care Provider Dr. Alpesh Marroquin Referring Provider Chelly RETAIL DISTRICT MANAGER, RETAIL DISTRICT MANAGER-C Debi Castanon Attending Provider Alpesh Marroquin DO Primary Care Provider [phone] Dr. Alpesh Marroquin Primary Care Provider Dr. Alpesh Marroquin Referring Provider Chelly TOLENTINO, RETAIL DISTRICT MANAGER-C Debi Castanon Attending Provider FriendDr. Samson Attending Provider FriendDr. Samson Other Provider Dr. Alpesh Marroquin Primary Care Provider Dr. Alpesh Marroquin Referring Provider Chelly TOLENTINO RETAIL DISTRICT MANAGER-C Debi Castanon Attending Provider Alpesh Marroquin DO Primary Care Provider Kovacs DOesa E Unavailable Alpesh Marroquin DO Primary Care Provider Kovacs DOesa E Unavailable Dr. Alpesh Marroquin DO Primary Care Provider [phone] Dr. Kendrick Nunes DO Attending Provider Dr. Kendrick Nunes DO Emergency Provider Dr. Alpesh Marroquin DO Referring Provider Iman Gracia Attending Provider Iman Gracia Referring Provider PETRILLAALPESH Attending Unavailable PETRILLA, ALPESH Referring Unavailable PETRILLA, ALPESH Primary Care Unavailable MAGGIE, HARRY E Attending Unavailable PETRILLA, ALPESH Primary Care Unavailable MAGGIE, HARRY E Attending Unavailable PETRILLA, ALPESH Primary Care Unavailable MAGGIE, HARRY E Attending Unavailable PETRILLA, ALPESH Primary Care Unavailable MAGGIE, HARRY E Attending Unavailable PETRILLA, ALPESH Primary Care Unavailable MAGGIE, HARRY E Referring Unavailable MAGGIE, HARRY E Attending Unavailable PETRILLA, ALPESH Primary Care Unavailable MAGGIE, HARRY E Referring Unavailable PETRILLA, ALPESH Attending Unavailable PETRILLA, ALPESH Primary Care Unavailable SADA MACE Attending Unavailable PETRILLA, ALPESH Primary Care Unavailable IONAAYAAN Attending Unavailable IONA AYAAN Referring Unavailable PETRILLA, ALPESH Primary Care Unavailable SADA MACE Attending Unavailable SADA MACE Referring Unavailable PETRILLA, ALPESH Primary Care Unavailable PETRILLA, ALPESH Primary Care Unavailable PETRILLA, ALPESH Attending Unavailable PETRILLA, ALPESH Primary Care Unavailable SADA MACE Attending Unavailable PETRILLA, ALPESH Primary Care Unavailable MACESADA Merrill Attending Unavailable PETRILLA, ALPESH Primary Care Unavailable IONAAYAAN Munoz Attending Unavailable PETRILLA, ALPESH Primary Care Unavailable PETRILLA, ALPESH Attending Unavailable PETRILLA, ALPESH Referring Unavailable PETRILLA, ALPESH Primary Care Unavailable MAGGIE, HARRY E Attending Unavailable PETRILLA, ALPESH Primary Care Unavailable MAGGIE, HARRY E Referring Unavailable Iman Grullon Referring Unavailable Iman Grullon Attending Unavailable Petrilla, Alpesh Primary Care Unavailable Kendrick Nunes Attending Unavailable Petrilla, Alpesh Primary Care Unavailable Friend, Chapin Attending Unavailable Care Physician, No Primary Referring Unava ilable Care Physician, No Primary Primary Care Unava ilable Iman Grullon Attending Unavailable Petrilla, Alpesh Referring Unavailable Petrilla, Alpesh Primary Care Unavailable Unavailable Unavailable Unavailable Allergies Allergy Classification Reported Allergen(s) Allergy Type Date of Onset Reaction(s) Facility (1 source) kiwi fruit allergenic extract Drug Allergy 8 Swelling [facility] (9 sources) Lisinopril Drug Allergy 7 Other (See Comments) [facility] Work Phone: (18 sources) Seasonal allergy Propensity to adverse reactions to substance 8 [facility] kiwi Allergy to substance 3 Swelling [facility] (20 sources) Kiwi fruit Propensity to adverse reactions 8 Swelling [facility] (20 sources) Lisinopril Propensity to adverse reactions 7 Angioedema [facility] (20 sources) Other Propensity to adverse reactions 8 [facility] (20 sources) Cat Dander Allergy to substance 5 Itching [facility] (14 sources) metFORMIN Drug Allergy 5 Diarrhea [facility] (1 source) Lisinopril Drug Allergy 5 [facility] (1 source) kiwi Drug allergy (disorder) 5 [facility] (1 source) cat dander Drug allergy (disorder) 5 [facility] Medications Current Medications Medication Drug Class(es) Dates Sig (Normalized) Sig (Original) apixaban 2.5 mg oral tablet (20 sources) Factor Xa Inhibitor Start: 12-03-2023 End: 10-17-2024 take 1 tablet by mouth twice daily apixaban (Eliquis) 2.5 MG tablet Indications: Pulmonary embolism with acute cor pulmonale, unspecified chronicity, unspecified pulmonary embolism type (HCC) Take 1 tablet (2.5 mg) by mouth 2 times daily. 180 tablet 3 07/19/2024 Active Start: 05-02-2023 End: 12-03-2023 take 1 tablet by mouth twice daily apixaban (Eliquis) 5 MG tablet Take 1 tablet (5 mg) by mouth 2 times daily. 60 tablet 5 10/07/2023 12/03/2023 Discontinued Start: 05-01-2023 End: 05-02-2023 apixaban (Eliquis) tablet 10 mg atorvastatin 10 mg oral tablet (20 sources) HMG-CoA Reductase Inhibitor Start: 10-16-2021 End: 05-30-2024 take 1 tablet by mouth once daily atorvastatin (Lipitor) 10 MG tablet TAKE 1 TABLET (10 MG) BY MOUTH DAILY. 90 tablet 1 05/30/2024 Active Start: 08-23-2020 take 1 tablet by yoly th once daily atorvastatin (LIPITOR) 10 MG tablet Take 1 tablet by mouth daily 90 tablet 1 08/23/2020 Active benzonatate 100 mg oral capsule (6 sources) Non-narcotic Antitussive Start: 02-10-2023 End: 02-17-2023 take 1 capsule by mouth every eight hours benzonatate (Tessalon) 100 MG capsule Take 1 capsule (100 mg) by mouth in the morning and 1 capsule (100 mg) at noon and 1 capsule (100 mg) before bedtime. Do all this for 7 days. Do not crush or chew.. 21 capsule 0 02/10/2023 02/17/2023 Active doxycycline hyclate 100 mg oral capsule (2 sources) Tetracycline-class Drug Start: 04-07-2023 End: 04-17-2023 doxycycline (Vibramycin) 100 MG capsule Take 1 capsule (100 mg) by mouth 2 times daily for 10 days. Take with at least 8 ounces (large glass) of water, do not lie down for 30 minutes after 20 capsule 0 04/07/2023 04/17/2023 Active empagliflozin 25 mg oral tablet (20 sources) Sodium-Glucose Cotransporter 2 Inhibitor Start: 06-29-2024 End: 12-26-2024 take 1 tablet by mouth once daily empagliflozin (Jardiance) 25 MG Take 1 tablet (25 mg) by mouth daily. 90 tablet 1 06/29/2024 12/26/2024 Active Start: 06-14-2024 End: 09-12-2024 take 1 tablet by mouth once daily empagliflozin (Jardiance) 10 MG Indications: Type 2 diabetes mellitus without complication, without long-term current use of insulin (HCC) Take 1 tablet (10 mg) by mouth daily. 30 tablet 2 06/14/2024 09/12/2024 Active Start: 06-07-2024 End: 06-21-2024 take 1 tablet by mouth once daily empagliflozin (Jardiance) 25 MG Indications: Type 2 diabetes mellitus without complication, without long-term current use of insulin (HCC) Take 1 tablet (25 mg) by mouth daily for 14 days. 14 tablet 06/07/2024 06/14/2024 Discontinued ferrous sulfate 325 mg oral tablet (20 sources) Start: 07-26-2024 take 1 tablet by mouth twice daily ferrous sulfate 325 (65 Fe) MG tablet Indications: Iron deficiency anemia due to chronic blood loss , Vitamin B12 deficiency Take 1 tablet (325 mg) by mouth 2 times daily. 180 tablet 1 07/26/2024 Active Start: 01-31-2024 End: 07-26-2024 take 1 tablet by mouth once daily at breakfast ferrous sulfate 325 (65 Fe) MG tablet TAKE 1 TABLET BY MOUTH EVERY DAY WITH BREAKFAST 90 tablet 1 07/05/2024 Active End: 04-07-2023 take 1 tablet by mouth once daily at breakfast ferrous sulfate 325 (65 Fe) MG tablet Take 325 mg by mouth daily (with breakfast). 0 04/07/2023 Discontinued (Therapy completed) glimepiride 4 mg oral tablet (20 sources) Sulfonylurea Start: 06-14-2024 take 1 tablet by mouth twice daily glimepiride (Amaryl) 4 MG tablet Take 1 tablet (4 mg) by mouth 2 times daily. 180 tablet 1 06/14/2024 Active Start: 04-02-2022 take 1 tablet by yoly once daily Glimepiride 4 mg tablet Active 4 mg PO DAILY April 02, 2022 1:00am Start: 11-17-2021 End: 06-07-2024 take 1 tablet by mouth twice daily glimepiride (Amaryl) 4 MG tablet TAKE 1 TABLET (4 MG) BY MOUTH 2 TIMES DAILY 180 tablet 1 02/29/2024 06/07/2024 Discontinued (Side effects) Start: 08-23-2020 glimepiride (A MARYL) 4 MG tablet Inc to 4mg q BID 180 tablet 1 08/23/2020 Active hydroCHLOROthiazide 12.5 mg / losartan potassium 100 mg oral tablet (20 sources) Thiazide Diuretic, Angiotensin 2 Receptor Owen Start: 05-30-2024 take 1 tablet by mouth once daily losartan-hydroCHLOROthiazide (Hyzaar) 100-12.5 MG tablet TAKE 1 TABLET BY MOUTH EVERY DAY 90 tablet 1 05/30/2024 Active Start: 01-26-2024 End: 05-30-2024 losartan-hydroCHLOROthiazide (Hyzaar) 100-12.5 MG tablet Decrease to one half tab q AM 01/26/2024 05/30/2024 Discontinued Start: 06-17-2022 take 1 tablet by yoly th once daily Losartan-Hydrochlorothiazide Active 1 TA BLET PO DAILY June 17, 2022 12:00am Start: 06-07-2021 End: 01-26-2024 take 1 tablet by mouth once daily losartan-hydroCHLOROthiazide (Hyzaar) 100-12.5 MG tablet TAKE 1 TABLET BY MOUTH EVERY DAY 90 tablet 1 05/30/2024 Active Start: 02-21-2021 take 1 tablet by yoly th once daily losartan-hydroCHLOROthiazide (HYZAAR) 100-12.5 MG per tablet Take 1 tablet by mouth daily 90 tablet 1 02/21/2021 Active mecobalamin (8 sources) Start: 04-02-2022 take 1 tablet by mouth once daily Mecobalamin (Vitamin B12) 500 mcg tablet,chewable Active 500 ug PO DAILY April 02, 2022 1:00am Start: 04-02-2022 take 500 ug by mouth once eron y Mecobalamin (Vitamin B12) Active 500 MCG PO DAILY April 02, 2022 1:00am Start: 04-02-2022 Mecobalamin (V itamin B12) Active MCG PO April 02, 2022 12:00am meloxicam 15 mg oral tablet (1 source) Nonsteroidal Anti-inflammatory Drug Start: 08-23-2020 take 1 tablet by mouth once daily meloxicam (MOBIC) 15 MG tablet Take 1 tablet by mouth daily 90 tablet 1 08/23/2020 Active omeprazole 40 mg delayed release oral capsule (20 sources) Proton Pump Inhibitor Start: 04-02-2022 End: 11-21-2024 take 1 capsule by mouth once daily omeprazole (PriLOSEC) [address] capsule Take 1 capsule (40 mg) by mouth daily for 180 doses. 90 capsule 1 05/25/2024 11/21/2024 Active Start: 10-16-2021 End: 05-21-2023 take 1 capsule by mouth once daily omeprazole (PriLOSEC) [address] capsule Take 1 capsule (20 mg) by mouth daily. 90 capsule 1 03/06/2022 Active Start: 08-23-2020 take 1 tablet by yoly th once daily omeprazole (PRILOSEC OTC) 20 MG tablet Take 1 tablet by mouth daily 90 tablet 1 08/23/2020 Active vitamin b12 1 mg oral tablet (20 sources) Vitamin B12 Start: 07-26-2024 End: 07-26-2025 take 1 tablet by mouth once daily cyanocobalamin (Vitamin B-12) 1000 MCG tablet Indications: Iron deficiency anemia due to chronic blood loss , Vitamin B12 deficiency Take 1 tablet (1,000 mcg) by mouth daily. 90 tablet 3 07/26/2024 07/26/2025 Active Start: 10-29-2021 End: 05-01-2023 take 1 tablet by mouth once daily cyanocobalamin (Vitamin B-12) 500 MCG tablet Take 1 tablet (500 mcg) by mouth daily. 90 tablet 1 03/06/2022 Active Start: 08-26-2020 Cyanocobalamin (VITAMIN B12) 500 MCG TABS One q day indefinitely 100 tablet 5 08/26/2020 Active Completed/Discontinued Medications Medication Drug Class(es) Dates Sig (Normalized) Sig (Original) Acetaminophen (4 sources) Start: 05-01-2023 End: 05-02-2023 take 1 tablet by mouth every six hours as needed for pain and fever acetaminophen (Tylenol) tablet 650 mg Start: 02-10-2023 End: 02-10-2023 acetaminophen (Tylenol) tabl et 1,000 mg amLODIPine 10 mg oral tablet (20 sources) Dihydropyridine Calcium Channel Owen Start: 09-28-2023 End: 04-04-2024 take 1 tablet by mouth once daily amLODIPine (Norvasc) 10 MG tablet Take 1 tablet (10 mg) by mouth daily for 180 doses. 90 tablet 1 10/07/2023 01/26/2024 Discontinued (Alternate therapy) Start: 05-21-2023 End: 06-20-2023 take 1 tablet by mouth once daily amLODIPine (Norvasc) 10 MG tablet Take 1 tablet (10 mg) by mouth daily for 30 doses. 30 tablet 5 05/21/2023 Active Start: 11-14-2021 End: 05-21-2023 take 1 tablet by mouth once daily Amlodipine 5 mg tablet Active 5 mg PO DAILY April 02, 2022 1:00am Start: 08-23-2020 take 1 tablet by yoly th once daily amLODIPine (NORVASC) 10 MG tablet Take 1 tablet by mouth daily 90 tablet 1 08/23/2020 Active ascorbic acid 1000 mg oral tablet (15 sources) Vitamin C End: 04-07-2023 take 1 tablet by mouth once daily Ascorbic Acid (vitamin C) 1000 MG tablet Take 1,000 mg by mouth daily. 0 04/07/2023 Discontinued (Therapy completed) cholestyramine resin 4000 mg powder for oral suspension (20 sources) Bile Acid Sequestrant Start: 04-02-2022 End: 09-27-2024 Cholestyramine (With Sugar) 4 gram powder Discontinued 0.5 NMA PO AT BEDTIME April 02, 2022 1:00am September 27, 2024 9:34am Start: 06-09-2021 End: 04-07-2023 take 1 dose by mouth twice daily cholestyramine (Questran) 4 g packet MIX AND TAKE 1 PACKET BY MOUTH 2 TIMES DAILY. 60 packet 5 09/03/2022 04/07/2023 Discontinued (Reorder) Start: 02-21-2021 take 1 dose by mouth twice daily cholestyramine (QUESTRAN) 4 g packet Take 1 packet by mouth 2 times daily 60 packet 5 02/21/2021 Active Continuous Blood Gluc Receiv er (FreeStyle Javad 2 [place]) device (20 sources) Start: 03-06-2022 End: 05-01-2023 Continuous Blood Gluc Receiv er (FreeStyle Javad 2 [place]) device TEST GLUCOSE 4 TIMES DAILY BEFORE MEALS AND AT BEDTIME 0 03/06/2022 05/01/2023 Discontinued (Therapy completed) Start: 03-06-2022 Continuous Blo od Gluc Auto Body Technician (FreeStyle Javad 2 [place]) device TEST GLUCOSE 4 TIMES DAILY BEFORE MEALS AND AT BEDTIME 0 03/06/2022 Active Continuous Glucose Monitor S up kit (20 sources) Start: 03-06-2022 End: 05-01-2023 Continuous Glucose Monitor S up kit Test glucose 4 times daily before meals and at bedtime 1 kit 0 03/06/2022 05/01/2023 Discontinued (Therapy completed) Start: 03-06-2022 Continuous Glu cose Monitor Sup kit Test glucose 4 times daily before meals and at bedtime 1 kit 0 03/06/2022 Active Continuous Glucose Monitor S up misc (20 sources) Start: 03-06-2022 End: 05-01-2023 Continuous Glucose Monitor S up misc Test 4 times daily before meals and at bedtime 2 Device 11 03/06/2022 05/01/2023 Discontinued (Therapy completed) Start: 03-06-2022 Continuous Glu cose Monitor Sup misc Test 4 times daily before meals and at bedtime 2 Device 11 03/06/2022 Active dicyclomine hydrochloride 10 mg oral capsule (20 sources) Anticholinergic Start: 08-27-2023 End: 06-14-2024 take 1 capsule by mouth twice daily dicyclomine (Bentyl) 10 MG capsule TAKE 1 CAPSULE BY MOUTH TWICE A DAY 180 capsule 1 05/30/2024 06/14/2024 Discontinued (Med list cleanup) Start: 04-21-2022 End: 09-27-2024 take 1 tablet by mouth twice daily Dicyclomine 20 mg tablet Discontinued 20 mg PO TWICE A DAY 180 3 July 16, 2022 9:06am September 27, 2024 9:34am Start: 04-11-2022 End: 07-06-2023 take 1 capsule by mouth twice daily Dicyclomine 10 mg capsule Discontinued 10 mg PO TWICE A DAY 60 April 11, 2022 1:00am April 21, 2022 4:09pm glipiZIDE 10 mg oral tablet (2 sources) Sulfonylurea Start: 05-02-2023 End: 05-02-2023 10 mg, Oral, 2 times daily before meals, First dose on 05/02/23 at 0700, Substituted for glimepiride (Amaryl). ibuprofen 200 mg oral tablet (20 sources) Nonsteroidal Anti-inflammatory Drug End: 10-07-2023 ibuprofen 200 MG tablet Take 200 mg by mouth. 10/07/2023 Discontinued (Alternate therapy) take 4 tablets by mo uth once daily as needed ibuprofen (ADVIL;MOTRIN) 200 MG tablet T kolton 200 mg by mouth every 6 hours as needed for Pain 4 tabs 2x day 0 Active iopamidol (Isovue-370) 76 % injection 75 mL (2 sources) Start: 05-01-2023 End: 05-01-2023 iopamidol (Isovue-370) 76 % injection 75 mL iron sucrose (Venofer) 200 m g in sodium chloride 0.9 % 100 mL IVPB (3 sources) Start: 10-06-2024 End: 10-06-2024 200 mg, IntraVENous, at 300 mL/hr, Administer over 20 Minutes, Once, On [facility] 10/06/24 at 1115, For 1 dose, Observe for signs and symptoms of hypersensitivity and/or anaphylactic-type reactions per institutional standard during and following administration. Start: 09-29-2024 End: 09-29-2024 200 mg, IntraVENous, at 300 mL/hr, Administer over 20 Minutes, Once, On [facility] 09/29/24 at 1015, For 1 dose, Observe for signs and symptoms of hypersensitivity and/or anaphylactic-type reactions per institutional standard during and following administration. Start: 09-22-2024 End: 09-22-2024 200 mg, IntraVENous, at 300 mL/hr, Administer over 20 Minutes, Once, On [facility] 09/22/24 at 1115, For 1 dose, Observe for signs and symptoms of hypersensitivity and/or anaphylactic-type reactions per institutional standard during and following administration. Losartan (2 sources) Angiotensin 2 Receptor Owen Start: 05-01-2023 End: 05-02-2023 losartan (Cozaar) tablet 100 mg metFORMIN hydrochloride 500 mg oral tablet (20 sources) Biguanide Start: 05-01-2023 End: 05-02-2023 take 1000 mg by mouth twice daily 1,000 mg, Oral, 2 times daily, First dose on Thu05/01/23 at 2100, On hold since Thu05/01/2023 at 1932 until manually unheld Start: 04-02-2022 take 1000 mg by mout h twice daily Metformin Active 1000 MG PO TWICE A DAY April 02, 2022 1:00am Start: 10-16-2021 End: 09-27-2024 take 2 tablets by mouth twice daily Metformin 500 mg tablet Discontinued 1000 mg PO TWICE A DAY April 02, 2022 1:00am September 27, 2024 9:34am Start: 08-23-2020 metFORMIN (GLU COPHAGE) 500 MG tablet Increase to 2 bid 360 tablet 1 08/23/2020 Active ondansetron 4 mg disintegrating oral tablet (3 sources) Serotonin-3 Receptor Antagonist Start: 06-10-2024 End: 09-27-2024 take 1 tablet by mouth every eight hours as needed for nausea Ondansetron 4 mg tablet,disintegrating Discontinued 4 mg PO EVERY 8 HOURS NEEDED as needed for Nausea 10 0 June 10, 2024 12:00am September 27, 2024 9:34am ondansetron ODT (Zofran-ODT) disintegrating tablet 4 mg (2 sources) Start: 05-01-2023 End: 05-02-2023 take 1 tablet by mouth every eight hours as needed for nausea and vomiting ondansetron ODT (Zofran-ODT) disintegrating tablet 4 mg pantoprazole 40 mg delayed release oral tablet (2 sources) Proton Pump Inhibitor Start: 05-02-2023 End: 05-02-2023 take 40 mg by mouth once daily before breakfast 40 mg, Oral, Daily before breakfast, First dose on 05/02/23 at 0700, Substituted for omeprazole (Prilosec). Do not crush, chew, or split. pioglitazone 15 mg oral tablet (6 sources) Peroxisome Proliferator Receptor alpha Agonist, Peroxisome Proliferator Receptor gamma Agonist, Thiazolidinedione Start: 05-29-2024 End: 05-29-2025 take 1 tablet by mouth once daily pioglitazone (Actos) 15 MG tablet Take 1 tablet (15 mg) by mouth daily. 30 tablet 11 05/29/2024 06/07/2024 Discontinued (Med list cleanup) polyethylene glycol 3350 29040 mg powder for oral solution (2 sources) Osmotic Laxative Start: 05-01-2023 End: 05-02-2023 take 17 g by mouth every twenty-four hours as needed for constipation 17 g, Oral, Daily PRN, constipation, Starting on Thu05/01/23 at 1919, 1st line for treatment of constipation - give scheduled if no bowel movement in past 24 hours. predniSONE 10 mg oral tablet (5 sources) Start: 04-07-2023 End: 05-01-2023 predniSONE (Deltasone) 10 MG tablet 4 qday for 3 days, then 2 q day for 3 days, then one q day till gone 21 tablet 0 04/08/2023 05/01/2023 Discontinued (Therapy completed) 72 hr scopolamine 0.0139 mg/hr transdermal system (7 sources) Anticholinergic Start: 07-04-2024 End: 09-02-2024 apply 1 dose transdermal route every hour as needed for nausea scopolamine (Transderm-Scop) 1 MG/3DAYS patch 72 hour Indications: Dizziness Place 1 patch on the skin every 3rd day as needed (nausea). 10 patch 07/04/2024 07/26/2024 Discontinued 50 ml sodium chloride 9 mg/ml injection (4 sources) Start: 10-06-2024 End: 10-06-2024 take 100 mL intravenously every hour, then take 20 mL intravenously every hour 5-250 mL/hr, IntraVENous, Once PRN, KVO, Starting on [facility] 10/06/24 at 1110, If patient receiving piggyback infusions and maintenance fluids are not ordered OR KVO fluids to protect IV site/ prevent frequent line interruptions/ long duration For piggyback infusion, administer at same rate as piggyback for a total of 25 mL. Enter 25 mL into dose field and piggyback rate into rate field of order. If piggyback is infusing at a rate less than 100 mL/hr, enter 25 mL into dose field and 100 mL/hr into rate field of order. For KVO fluids, enter rate of 20 mL/hr or less into rate field of order. Start: 09-29-2024 End: 09-29-2024 take 100 mL intravenously every hour, then take 20 mL intravenously every hour 5-250 mL/hr, IntraVENous, Once PRN, KVO, Starting on [facility] 09/29/24 at 1005, If patient receiving piggyback infusions and maintenance fluids are not ordered OR KVO fluids to protect IV site/ prevent frequent line interruptions/ long duration For piggyback infusion, administer at same rate as piggyback for a total of 25 mL. Enter 25 mL into dose field and piggyback rate into rate field of order. If piggyback is infusing at a rate less than 100 mL/hr, enter 25 mL into dose field and 100 mL/hr into rate field of order. For KVO fluids, enter rate of 20 mL/hr or less into rate field of order. Start: 09-29-2024 End: 09-29-2024 5-40 mL, IntraVENous, Once P RN, line care, Starting on [facility] 09/29/24 at 1005, If following IV push medication, administer flush at same rate as the IV push. Flush volume is determined by type of infusion therapy being given. For non-viscous solutions use: Peripheral IV = 5 mL Midline or Central Line = 10 mL/lumen For viscous solutions (i.e. blood components, parenteral nutrition, contrast media, or after obtaining blood sample) use: Peripheral IV = 10 mL Midline or Central Line = 20 mL/lumen Start: 09-22-2024 End: 09-22-2024 take 100 mL intravenously every hour, then take 20 mL intravenously every hour 5-250 mL/hr, IntraVENous, Once PRN, KVO, Starting on [facility] 09/22/24 at 1112, If patient receiving piggyback infusions and maintenance fluids are not ordered OR KVO fluids to protect IV site/ prevent frequent line interruptions/ long duration For piggyback infusion, administer at same rate as piggyback for a total of 25 mL. Enter 25 mL into dose field and piggyback rate into rate field of order. If piggyback is infusing at a rate less than 100 mL/hr, enter 25 mL into dose field and 100 mL/hr into rate field of order. For KVO fluids, enter rate of 20 mL/hr or less into rate field of order. Problems Active Problems Problem Classification Problem Date Documented Da te Episodic/Chronic Chronic obstructive pulmonary disease and bronchiectasis (1 source) Simple chronic bronchitis; Translations: [Simple chronic bronchitis] 04-07-2023 Chronic Deficiency and other anemia (10 sources) Iron deficiency anemia due to blood loss; Translations: [Iron deficiency anemia secondary to blood loss (chronic)] 10-07-2022 Chronic Deficiency and other anemia (2 sources) Iron deficiency anemia secondary to blood loss (chronic); Translations: [Iron deficiency anemia secondary to blood loss (chronic)] Onset: 07-24-2024 Chronic Deficiency and other anemia (8 sources) Anemia, unspecified; Translations: [Anemia, unspecified] Onset: 06-07-2024 04-11-2022 Episodic Deficiency and other anemia (12 sources) Anemia; Translations: [Anemia, unspecified] 07-16-2022 Episodic Deficiency and other anemia (2 sources) Normocytic normochromic anemia; Translations: [Anemia, unspecified] 05-29-2024 Episodic Deficiency and other anemia (2 sources) Iron deficiency anemia, unspecified; Translations: [Iron deficiency anemia, unspecified] Onset: 07-24-2024 Episodic Diabetes mellitus without complication (20 sources) Type 2 diabetes mellitus; Translations: [Type 2 diabetes mellitus without complications] Onset: 02-17-2004 10-22-2016 Chronic Disorders of lipid metabolism (8 sources) Hypercholesterolemia ; Translations: [Pure hypercholesterolemia , unspecified] Onset: 01-26-2024 09-03-2022 Chronic Esophageal disorders (20 sources) Gastro-esophageal reflux disease with esophagitis; Translations: [GERD with esophagitis] Onset: 02-17-2012 10-22-2016 Chronic Esophageal disorders (2 sources) Esophageal disorders; Translations: [Gastro-esophageal reflux disease with esophagitis, without bleeding] Onset: 12-01-2021 Essential hypertension (20 sources) Essential hypertension; Translations: [Essential (primary) hypertension] Onset: 02-16-2011 Resolved: 12-20-2019 02-22-2020 Chronic Nausea and vomiting (3 sources) Nausea and vomiting; Translations: [Nausea with vomiting, unspecified] 06-18-2024 Episodic Neoplasms of unspecified nature or uncertain behavior (20 sources) Monoclonal gammopathy (clinical); Translations: [Monoclonal gammopathy] Onset: 05-17-2024 06-14-2024 Chronic Other connective tissue disease (1 source) Pain in left lower limb; Translations: [Pain in left leg] Episodic Other connective tissue disease (1 source) Disorder of soft tissue; Translations: [Other specified soft tissue disorders] Episodic Other connective tissue disease (1 source) Pain in lower limb; Translations: [Pain in left leg] Episodic Other gastrointestinal disorders (2 sources) Diarrhea; Translations: [Intestinal malabsorption, unspecified] 05-25-2024 Chronic Other gastrointestinal disorders (9 sources) Fatty stool ; Translations: [Intestinal malabsorption, unspecified] Onset: 09-12-2024 09-12-2024 Chronic Other gastrointestinal disorders (2 sources) Intestinal malabsorption, unspecified; Translations: [Intestinal malabsorption, unspecified] Onset: 09-12-2024 Chronic Other gastrointestinal disorders (2 sources) Diarrhea; Translations: [Diarrhea, unspecified] 05-25-2024 Episodic Other lower respiratory disease (9 sources) Dyspnea on exertion; Translations: [Other forms of dyspnea] 05-01-2023 Episodic Other screening for suspected conditions (not mental disorders or infectious disease) (1 source) Serum creatinine raised; Translations: [Other specified abnormal findings of blood chemistry] 07-24-2024 Episodic Other upper respiratory infections (2 sources) Viral upper respiratory tract infection; Translations: [Acute upper respiratory infection, unspecified] 02-10-2023 Episodic Pulmonary heart disease (3 sources) Pulmonary embolism; Translations: [Other pulmonary embolism with acute cor pulmonale] 07-18-2024 Chronic Retinal detachments; defects; vascular occlusion; and retinopathy (20 sources) Cystoid macular edema; Translations: [Cystoid macular degeneration, unspecified eye] Onset: 02-16-2018 06-20-2019 Chronic Spondylosis; intervertebral disc disorders; other back problems (20 sources) Disorder of lumbar disc; Translations: [Unspecified thoracic, thoracolumbar and lumbosacral intervertebral disc disorder] Onset: 02-16-2005 10-22-2016 Chronic Unclassified (4 sources) E11.9 - Type 2 diabetes mellitus without complications Unclassified (2 sources) OP Infusion; Translations: [OP Infusion] Onset: 08-25-2024 Past or Other Problems Problem Classification Problem Date Documented Da te Episodic/Chronic Biliary tract disease (20 sources) Biliary calculus; Translations: [Calculus of gallbladder without cholecystitis without obstruction] Onset: 02-17-2012 Resolved: 01-26-2024 10-22-2016 Episodic Calculus of urinary tract (20 sources) History of calculus of kidney; Translations: [Personal history of urinary calculi] Onset: 02-16-2005 12-20-2018 Episodic Deficiency and other anemia (20 sources) Iron deficiency anemia; Translations: [Iron deficiency anemia, unspecified] Onset: 02-16-2022 09-14-2022 Episodic Deficiency and other anemia (2 sources) Other iron deficiency anemias; Translations: [Other iron deficiency anemias] Onset: 05-25-2024 Episodic Diabetes mellitus with complications (20 sources) Hyperglycemia due to type 2 diabetes mellitus; Translations: [Type 2 diabetes mellitus with hyperglycemia] Onset: 02-21-2021 Resolved: 01-26-2024 02-21-2021 Chronic Noninfectious gastroenteritis (20 sources) Chronic diarrhea; Translations: [Noninfective gastroenteritis and colitis, unspecified] Onset: 02-16-2022 04-11-2022 Episodic Nutritional deficiencies (20 sources) Cobalamin deficiency; Translations: [Deficiency of other specified B group vitamins] Onset: 02-21-2021 02-21-2021 Episodic Other aftercare (14 sources) Long-term current use of anticoagulant; Translations: [medical terminologist (current) use of anticoagulants] Onset: 02-16-2023 07-24-2024 Episodic Other and unspecified benign neoplasm (20 sources) Adenoma of left adrenal gland; Translations: [Benign neoplasm of left adrenal gland] Onset: 09-03-2022 09-03-2022 Episodic Other diseases of kidney and ureters (20 sources) Cyst of kidney; Translations: [Cyst of kidney, acquired] Onset: 02-16-2005 12-20-2018 Episodic Other gastrointestinal disorders (20 sources) Arteriovenous malformation of large intestine; Translations: [Angiodysplasia of colon without hemorrhage] Onset: 06-16-2022 07-06-2022 Episodic Other gastrointestinal disorders (2 sources) Diarrhea, unspecified; Translations: [Diarrhea, unspecified] Onset: 05-25-2024 Episodic Other injuries and conditions due to external causes (20 sources) Angioedema due to angiotensin-convertin g-enzyme inhibitor; Translations: [Angioneurotic edema, initial encounter] Onset: 05-21-2023 05-21-2023 Episodic Other lower respiratory disease (20 sources) Angiotensin-convertin g-enzyme inhibitor adverse reaction; Translations: [SMILEY-inhibitor cough] Onset: 10-22-2016 12-20-2018 Episodic Other lower respiratory disease (6 sources) Dyspnea; Translations: [Shortness of breath] Onset: 11-17-2023 05-01-2023 Episodic Other lower respiratory disease (1 source) Shortness of breath; Translations: [Shortness of breath] Onset: 11-17-2023 Episodic Phlebitis; thrombophlebitis and thromboembolism (20 sources) Acute deep venous thrombosis of politeal vein of right leg; Translations: [Acute embolism and thrombosis of right popliteal vein] Onset: 04-17-2023 05-01-2023 Episodic Pulmonary heart disease (20 sources) Pulmonary embolism; Translations: [Single subsegmental pulmonary embolism without acute cor pulmonale] Onset: 05-01-2023 05-01-2023 Episodic Residual codes; unclassified (1 source) Illness, unspecified; Translations: [Illness, unspecified] Onset: 06-15-2024 Episodic Syncope (11 sources) Syncope; Translations: [Syncope and collapse] Onset: 06-30-2024 06-14-2024 Episodic Results Test Name Value Interpretation Reference Range Facility Progress Noteon 10-06-2024 Progress Note ARRIVAL NOTE INFUSIO N Patient is here for iron infusion Labs were not ordered 1200 Infusion completed and flushed with NS. No IV related complications. No s/sx rx, pt voices no c/o. Pt verbalizes understanding of s/sx adverse reaction or complication to report to MD office when at home. Normal [facility] Progress Noteon 09-29-2024 Progress Note Arrival Note Infusio n Patient is here for iron Labs were not ordered. Tolerated last iron infusion well without side effects. 1100 Ordered treatment completed. Patient discharged without any issues. Patient has a copy of next infusion appointment and verbalizes understanding. All questions answered. Normal [facility] Absolute lymphocyte countOrd ered By: Iman Grullon on 09-27-2024 Lymphocytes Auto (Unsp spec) [#/Vol] 3.28 10*3/uL 0.83-4.51 [facility] Absolute neutrophil countOrd ered By: Iman Grullon on 09-27-2024 Neutrophils (Bld) [#/Vol] 3.6 10*3/uL 2.0-7.7 [facility] Automated lymphocyte count a s percentage of total leukocytesOrdered By: Iman Grullon on 09-27-2024 Lymphocytes/100 WBC Auto (Unsp spec) 42.4 % High 19-41 [facility] Basophil percentageOrdered B y: Iman Grullon on 09-27-2024 Basophils/100 WBC (Bld) 0.8 % 0-1 [facility] CBC W/Diff, Automatedon 09-16 Absolute Lymph 3.28 X10 3/uL Normal 0.83-4.51 [facility] Comment on above: Performed By: #### L 100.0100 #### [facility] [address] [place], [address] Absolute Neut 3.6 X10 3/uL Normal 2.0-7.7 [facility] Comment on above: Performed By: #### L 100.0100 #### [facility] [address] [place], [address] Basophils/100 WBC (Bld) 0.8 % Normal 0-1 [facility] Comment on above: Performed By: #### L 100.0100 #### [facility] [address] [place], [address] Eosinophils/100 WBC (Bld) 3.0 % Normal 0-5 [facility] Comment on above: Performed By: #### L 100.0100 #### [facility] [address] [place], [address] Erythrocyte distribution width (RBC) [Ratio] 13.8 % Normal 11.6-14.6 [facility] Comment on above: Performed By: #### L 100.0100 #### [facility] [address] [place], [address] Hematocrit (Bld) [Volume fraction] 34.9 % Low 37-47 [facility] Comment on above: Performed By: #### L 100.0100 #### [facility] [address] [place], [address] Hemoglobin (Bld) [Mass/Vol] 10.7 g/dL Low 12.0-15. 0 [facility] Comment on above: Performed By: #### L 100.0100 #### [facility] [address] [place], [address] IG% 0.400 Normal 0.0-0.9 [facility] Comment on above: Result Comment: IG% - Immature Granulocytes (promyelocytes, myelocytes and metamyelocytes) > 1% indicates that a LEFT SHIFT is Present. Performed By: #### L 100.0100 #### [facility] [address] [place], [address] Lymphocytes/100 WBC (Bld) 42.4 % High 19-41 [facility] Comment on above: Performed By: #### L 100.0100 #### [facility] [address] [place], [address] MCH (RBC) [Entitic mass] 28.0 pg Normal 27.0-32.0 [facility] Comment on above: Performed By: #### L 100.0100 #### [facility] [address] [place], [address] MCHC (RBC) [Mass/Vol] 30.7 g/dL Low 32-36 [facility] Comment on above: Performed By: #### L 100.0100 #### [facility] [address] [place], [address] MCV (RBC) [Entitic vol] 91.4 fL Normal 81-99 [facility] Comment on above: Performed By: #### L 100.0100 #### [facility] [address] [place], [address] Monocytes/100 WBC (Bld) 6.7 % Normal 0-10 [facility] Comment on above: Performed By: #### L 100.0100 #### [facility] [address] [place], [address] Neutrophils/100 WBC (Bld) 46.7 % Low 47-70 [facility] Comment on above: Performed By: #### L 100.0100 #### [facility] [address] [place], [address] Nucleated RBC (Bld) [#/Vol] 0 10*3/uL Normal 0-5 [facility] Comment on above: Performed By: #### L 100.0100 #### [facility] [address] [place], [address] Platelet mean volume (Bld) [Entitic vol] 9.4 fL Normal 6.2-12.0 [facility] Comment on above: Performed By: #### L 100.0100 #### [facility] [address] [place], [address] Platelets (Bld) [#/Vol] 333 10*3/uL Normal 150-450 [facility] Comment on above: Performed By: #### L 100.0100 #### [facility] [address] [place], [address] RBC (Bld) [#/Vol] 3.82 10*6/uL Low 4.2-5.4 [facility] Comment on above: Performed By: #### L 100.0100 #### [facility] [address] [place], [address] RDW SD 45.6 fl High 35.1-43.9 [facility] Comment on above: Performed By: #### L 100.0100 #### [facility] [address] [place], [address] WBC (Bld) [#/Vol] 7.7 10*3/uL Normal 4.4-11.0 [facility] Comment on above: Performed By: #### L 100.0100 #### [facility] [address] [place], [address] Eosinophil percentageOrdered By: Iman Grullon on 09-27-2024 Eosinophils/100 WBC (Bld) 3.0 % 0-5 [facility] Erythrocyte distribution wid th ratioOrdered By: Iman Grullon on 09-27-2024 Erythrocyte distribution width (RBC) [Ratio] 13.8 % 11.6-14.6 [facility] Erythrocyte distribution wid th standard deviationOrdered By: Iman Grullon on 09-27-2024 Erythrocyte distribution width (RBC) [Ratio] 45.6 fl High 35.1-43.9 [facility] Gastroenterology Visit Repor ton 09-27-2024 Gastroenterology Visit Report [facility] [address] [place] [address] OFFICE VISIT Date of Service: 09/27/24 MR#: [id number] Acct: [id number] Name: CATA AYERS Rep #: [id number] : 1950 Provider: SARAH Stark Age/Sex: 74/F Location[place] [facility] [place] Status: Signed Intake Vital Signs 06/10/24 16:33 Height 5 ft 3 in Intake Visit Reasons: Black Stools Chief Complaint: Anemia Allergies kiwi Allergy (Intermediate, Verified 06/10/24 16:35) Swelling lisinopril Allergy (Intermediate, Verified 06/10/24 16:35) Other cat dander (cats) Allergy (Verified 06/10/24 16:40) Itching Medications ???Medication ???Instructions ???Recorded ???Confirmed ???Type amlodipine 5 mg tablet 5 mg PO DAILY 04/02/22 07/16/22 Hi story atorvastatin 10 mg tablet 10 mg PO DAILY 04/02/22 09/27/24 H istory glimepiride 4 mg tablet 4 mg PO DAILY 04/02/22 09/27/24 Hi story mecobalamin (vitamin B12) 500 mcg 500 mcg PO DAILY 04/02/22 5 History chewable tablet omeprazole 40 mg capsule,delayed 40 mg PO DAILY 04/02/22 09/27/24 H istory release losartan 100 1 tab PO DAILY 06/17/22 09/27/24 H istory mg-hydrochlorothiazid e 12.5 mg tablet apixaban 2.5 mg tablet (Eliquis) 2.5 mg PO BID 09/27/24 09/27/24 Hi story empagliflozin 25 mg tablet 25 mg PO QAM 09/27/24 09/27/24 His tory (Jardiance) ferrous sulfate 325 mg (65 mg 325 mg PO BID 09/27/24 09/27/24 Hi story iron) tablet Have you fallen in the past year?: Yes Nurse's Note: OV 09/27/24 Pt here to f/u with ER visit. Pt reports dark formed stools. Denies nausea, vomiting, abdominal pain, constipation, diarrhea and bloody stools. Pt reports she stopped taking metformin and her diarrhea stopped. Continues omeprazole daily. [facility] Medical History Wears dentures Wears glasses Post-menopausal Diabetes Arthritis Kidney stones Fatty liver Anemia High cholesterol Dietary restriction Gastric reflux Non-smoker History of pain when walking History of edema Hypercholesteremia Type 2 diabetes mellitus Lumbar disc disease Cholelithiasis GERD (gastroesophageal reflux disease) Vitamin B12 deficiency Cystoid macular edema HTN (hypertension) Renal cyst Surgical History History of partial hysterectomy History of cholecystectomy Family History Father Prostate cancer Brother Hx of resection of large bowel PAD (peripheral artery disease) Mother Rheumatoid arthritis Sister Diabetes Brother Diabetes Social History Smoking Status: Never smoker alcohol intake: never HPI HPI Chief Complaint: Anemia Details: CATA AYERS, is a 74 F who presents to the office today for reestablishment. [facility]GI established in 2022 for chronic diarrhea, anemia and GERD. EGD 5.4.23 - Normal esophagus. - Normal stomach. - Small hiatal hernia. - Erythematous duodenopathy. Biopsied Colonoscopy 5.4.23 - Congested mucosa in the sigmoid colon, at the splenic flexure, at the hepatic flexure and in the ascending colon. Biopsied. - One bleeding colonic angiodysplastic lesion. Treated with a monopolar probe. - Two bleeding angiodysplastic lesions in the ileum. Treated with a heater probe. OV 6.6.23 for f/u after endoscopy. Continue PPI, cholestyramine and psyllium OV 8.12.25 here for re establishment. PMHx of MGUS, iron def anemia, PE and DVT. Pt seen by her call manager who recommended f/u with GI for persistent anemia. Patient was on oral iron twice a day however her anemia was refractory. She has had 1 iron infusion. She does notice she is less fatigued now. She does not notice any blood in her stool. When she was oral and oral iron her stools were black. She is no longer having any diarrhea after stopping metformin. She has normal bowel movements with no constipation. ROS Const Constitutional: Positive for fatigue; No fever(s) or weight change ENT ENT: No difficulty swallowing Gastro GI: No abdominal pain, belching, bloating, change in bowel habits, change in stool character, coffee ground emesis, constipation, cramping, diarrhea, heartburn, difficulty swallowing, feeling full early, excessive flatus, incontinent of stools, Vomiting blood/hematemesis, Blood in stool, loose stools, Black,tarry stools, nausea/dyspepsia, pain with swallowing, vomiting or other Musc Musculoskeletal: Positive for back pain, Arthritis, sciatica and restless legs; No joint pain Skin Skin: No yellowing of the eye or itchy eyes Neuro Neurology: Positive for restless legs Psych Psychiatric: No anxiety and No depression Endo Endocrine: Positive for f (more content not included)... Normal [facility] Hematocrit Auto (Bld) [Volum e fraction]Ordered By: Iman Grullon on 09-27-2024 Hematocrit (Bld) [Volume fraction] 34.9 % Low 37-47 [facility] Hemoglobin measurementOrdere d By: Iman Grullon on 09-27-2024 Hemoglobin (Bld) [Mass/Vol] 10.7 g/dL Low 12.0-15. 0 [facility] Immature granulocytes/100 WB C Auto (Bld)Ordered By: Iman Grullon on 09-27-2024 Immature granulocytes/100 WBC (Bld) 0.400 % 0.0-0.9 [facility] Comment on above: IG% - Immature Granu locytes (promyelocytes, myelocytes and metamyelocytes) > 1% indicates that a LEFT SHIFT is Present. MCV (mean corpuscular volume ) determinationOrdered By: Iman Grullon on 09-27-2024 MCV (RBC) [Entitic vol] 91.4 fL 81-99 [facility] Mean corpuscular hemoglobin (MCH) determinationOrdered By: Iman Grullon on 09-27-2024 MCH (RBC) [Entitic mass] 28.0 pg 27.0-32.0 [facility] Mean corpuscular hemoglobin concentration (MCHC) determinationOrdered By: Iman Grullon on 09-27-2024 MCHC (RBC) [Mass/Vol] 30.7 g/dL Low 32-36 [facility] Mean platelet volume determi nationOrdered By: Iman Grullon on 09-27-2024 Platelet mean volume (Bld) [Entitic vol] 9.4 fL 6.2-12.0 [facility] Monocyte percentageOrdered B y: Iman Mitchel on 09-27-2024 Monocytes/100 WBC (Bld) 6.7 % 0-10 [facility] Neutrophil percentageOrdered By: Iman Grullon on 09-27-2024 Neutrophils/100 WBC (Bld) 46.7 % Low 47-70 [facility] Nucleated red blood cell per centageOrdered By: Iman Grullon on 09-27-2024 Nucleated RBC/100 WBC (Bld) [Ratio] 0 % 0-5 [facility] Platelet countOrdered By: Rebekah Grullon on 09-27-2024 Platelets (Bld) [#/Vol] 333 10*3/uL 150-450 [facility] RBC Auto (Bld) [#/Vol]Ordere d By: Iman Grullon on 09-27-2024 RBC (Bld) [#/Vol] 3.82 10*6/uL Low 4.2-5.4 [facility] White blood cell (WBC) count Ordered By: Iman Grullon on 09-27-2024 WBC (Bld) [#/Vol] 7.7 10*3/uL 4.4-11.0 [facility] Progress Noteon 09-22-2024 Progress Note Arrival Note Infusio n Patient is here for iron Labs were not ordered. 1220: Ordered treatment completed. Patient discharged without any issues. Patient has a copy of next infusion appointment and verbalizes understanding. All questions answered. Normal [facility] Office Visiton 09-08-2024 Follow-up visit [id number] Cata Ayers 1950 F Date Provider Department Center 09/08/2024 [id number]-SLFHIBHARRY SERRANO ONC None Family History Problem Relation Age of Onset Rheum arthritis Mother Comments: mid 50s Prostate cancer Father Comments: age 76 Diabetes Sister Comments: insulin, CHF , 2022 age 78 Diabetes Sister Comments: oral rx, alive age 74 Accidental Brother Comments: MVA 40 Prostate cancer Brother Arrhythmia Brother Comments: PVCs Other Brother Comments: PAD, smoker- ischemic bowel w/ resection Heart failure Brother Diabetes Brother Comments: insulin, age 74 in 04/08 Diabetes Maternal Grandmother Diabetes Maternal Grandfather Diabetes Paternal Grandmother Diabetes Paternal Grandfather Family Status - Relation Status Age at Mother Father Sister Sister Alive Brother Brother Alive Brother Alive Brother Maternal Grandmother Maternal Grandfather Paternal Grandmother Paternal Grandfather Level of Service:64380 ND OFFICE/OUTPATIENT ESTABLISHED MOD MDM 30 MIN Reason for Visit and Comments: Follow-up [337621] Normal [facility] CBC WITH AUTO DIFFERENTIALon 08-25-2024 Basophils (Bld) [#/Vol] 0.1 10*3/uL Normal 0.0-0.2 [facility] Comment on above: Performed By: #### L [id number] ####Front Edger: NAKUL BLANCO ([id number])[facility] [place] [address] Basophils/100 WBC (Bld) 0.6 % Normal 0.0-2.0 [facility] Comment on above: Performed By: #### L [id number] ####Front Edger: NAKUL BLANCO ([id number])[facility] [place] [address] Eosinophils (Bld) [#/Vol] 0.2 10*3/uL Normal 0.0-0.5 [facility] Comment on above: Performed By: #### L [id number] ####Front Edger: NAKUL BLANCO ([id number])[facility] [place] [address] Eosinophils/100 WBC (Bld) 2.9 % Normal 0.0-6.0 [facility] Comment on above: Performed By: #### L [id number] ####Front Edger: NAKLU BLANCO ([id number])[facility] [place] [address] Erythrocyte distribution width (RBC) [Ratio] 14.5 % Normal 11.5-15.0 [facility] Comment on above: Performed By: #### L [id number] ####Front Edger: NAKUL GONZALESPATY ([id number])[facility] ([facility])[address] [place] [address] Hematocrit (Bld) [Volume fraction] 31.6 % Low 35.0-47.0 [facility] Comment on above: Performed By: #### L [id number] ####Front Edger: NAKUL GONZALESPATY ([id number])[facility] ([facility])[address] [place] [address] Hemoglobin (Bld) [Mass/Vol] 9.9 g/dL Low 11.7-16. 0 [facility] Comment on above: Performed By: #### L [id number] ####Front Edger: NAKUL GONZALESPATY ([id number])[facility] ([facility])[address] [place] [address] IMMATURE GRANS % 0.1 % Normal 0.0-2.0 [facility] Comment on above: Performed By: #### L [id number] ####Front Edger: NAKUL GONZALESPATY ([id number])[facility] ([facility])[address] [place] [address] IMMATURE GRANS ABSOLUTE 0.0 10*3/uL Normal <0.1 [facility] Comment on above: Performed By: #### L [id number] ####Front Edger: NAKUL BLANCO ([id number])[facility] ([facility])[address] [place] [address] Lymphocytes (Bld) [#/Vol] 3.3 10*3/uL Normal 1.0-4.3 [facility] Comment on above: Performed By: #### L [id number] ####Front Edger: NAKUL BLANCO ([id number])[facility] ([facility])[address] [place] [address] Lymphocytes/100 WBC (Bld) 41.4 % Normal 15.0-45.0 [facility] Comment on above: Performed By: #### L [id number] ####Front Edger: NAKUL BLANCO ([id number])[facility] ([facility])[address] [place] [address] MCH (RBC) [Entitic mass] 28.0 pg Normal 26.0-34.0 [facility] Comment on above: Performed By: #### L [id number] ####Front Edger: NAKUL BLANCO ([id number])[facility] ([facility])[address] [place] [address] MCHC 31.3 % Normal 30.5-36.0 [facility] Comment on above: Performed By: #### L [id number] ####Front Edger: NAKUL BLANCO ([id number])[facility] ([facility])[address] [place] [address] MCV (RBC) [Entitic vol] 89.3 fL Normal 77.0-99.0 [facility] Comment on above: Performed By: #### L [id number] ####Front Edger: NAKUL BLANCO ([id number])[facility] ([facility])[address] [place] [address] Monocytes (Bld) [#/Vol] 0.4 10*3/uL Normal 0.0-0.9 [facility] Comment on above: Performed By: #### L [id number] ####Front Edger: NAKUL BLANCO ([id number])[facility] [place] [address] Monocytes/100 WBC (Bld) 5.2 % Normal 5.0-13.0 S [facility] Comment on above: Performed By: #### L [id number] ####Front Edger: NAKUL BLANCO ([id number])[facility] ([facility])[address] [place] [address] NEUTROPHILS ABSOLUTE 3.9 10*3/uL Normal 1.8-7.5 [facility] Comment on above: Performed By: #### L [id number] ####Front Edger: NAKUL BLANCO ([id number])[facility])[address] [place] [address] Neutrophils/100 WBC (Bld) 49.8 % Normal 38.0-82.0 [facility] Comment on above: Performed By: #### L [id number] ####Front Edger: NAKUL BLANCO ([id number])[facility])[address] [place] [address] NRBC 0.0 /100 WBCs Normal 0.0-2.0 [facility] Comment on above: Performed By: #### L [id number] ####Front Edger: NAKUL GONZALESPATY ([id number])[facility] ([facility])[address] [place] [address] Platelet mean volume (Bld) [Entitic vol] 9.0 fL Normal 9.0-12.7 [facility] Comment on above: Result Comment: MPV is a calculated measurement using platelet volume ratio Performed By: #### L [id number] ####Front Edger: NAKUL BLANCO ([id number])[facility])[address] [place] [address] Platelets (Bld) [#/Vol] 365 10*3/uL Normal 140-440 [facility] Comment on above: Performed By: #### L [id number] ####Front Edger: NAKUL BLANCO ([id number])[facility] ([facility])[address] [place] [address] RBC (Bld) [#/Vol] 3.54 10*6/uL Low 3.80-5.20 [facility] Comment on above: Performed By: #### L [id number] ####Front Edger: NAKUL BLANCO ([id number])[facility] ([facility])[address] [place] [address] WBC (Bld) [#/Vol] 7.9 10*3/uL Normal 3.6-10.7 [facility] Comment on above: Performed By: #### L [id number] ####Front Edger: NAKUL BLANCO ([id number])[facility])[address] [place] [address] FERRITINon 08-25-2024 Ferritin [Mass/Vol] 38 ng/mL Normal 5-204 [facility] Comment on above: Result Comment: CATIA R COMMENTS: Ferritin levels below 10 ng/mL have been reported as indicative of iron deficiency anemia. Performed By: #### L AB67, [id number] ####Front Edger: BETTE HUGHES ([id number])[facility])[address] [place] [address] IG CONCENTRATION, BLOOD (IMM UNOFIXATION ELECTROPHORESIS)on 08-25-2024 IGA, BLOOD 278 mg/dL Normal 85-600 [facility] Comment on above: Performed By: #### L [id number], [id number] ####Front Edger: BETTE HUGHES ([id number])[facility] [place] [address] IGG, BLOOD 1192 mg/dL Normal 540-1722 [facility] Comment on above: Performed By: #### L [id number], [id number] ####Front Edger: BETTE HUGHES ([id number])[facility] ([facility])[address] [place] [address] IGM, BLOOD 178 mg/dL Normal 25-265 [facility] Comment on above: Performed By: #### L [id number], [id number] ####Front Edger: BETTE HUGHES ([id number])[facility])[address] [place] [address] IMMUNOFIXATION ELECTROPHORES Jessika 08-25-2024 IMMUNOFIXATION ELECTROPHORESIS See Below Normal [facility] Comment on above: Result Comment: A mo noclonal IgG kappa protein is present. Performed By: #### L [id number], [id number] ####Front Edger: BETTE HUGHES ([id number])[facility] ([facility])[address] [place] [address] IRON AND TIBCon 08-25-2024 IRON BINDING CAPACITY 328 ug/dL Normal 250-450 [facility] Comment on above: Performed By: #### L [id number], [id number] ####Front Edger: BETTE HUGHES ([id number])[facility])[address] [place] [address] IRON SATURATION 18.9 % Low 20.0-50.0 [facility] Comment on above: Performed By: #### L [id number], [id number] ####Front Edger: BETTE HUGHES ([id number])[facility])[address] [place] [address] IRON, TOTAL 62 ug/dL Normal 50-170 [facility] Comment on above: Performed By: #### L [id number], [id number] ####Front Edger: BETTE HUGHES ([id number])[facility] ([facility])[address] [place] [address] K/L QNT FREE LIGHT CHAINS WI TH RATIO (BKR QUEST)on 08-25-2024 QUEST KAPPA LIGHT CHAIN, FREE, SERUM 39.4 mg/L High 3.3-19.4 [facility] Comment on above: Performed By: #### L [id number] ####[facility] (AMDBEAKER)[address] [place], [place] [facility]ST KAPPA/LAMBDA LIGHT CHAINS FREE WITH RATIO, SERUM 1.76 High 0.26-1.65 [facility] Comment on above: Result Comment: Free kappa/lambda ratio in serum of normal individuals is 0.26-1.65. Excess production of free kappa or lambda chains can alter the ratio. Monoclonal free light chains are found in the serum of patients with multiple myeloma, Waldenstrom's macroglobulinemia, mu-heavy chain disease, primary amyloidosis, light chain deposition disease, monoclonal gammopathy of undetermined significance, and lymphoproliferative disorders. Measurement of free light chain concen- tration in serum is useful for diagnosis, prognosis, monitoring disease activity and following response to therapy of these disorders. Test Performed by Man [facility], [facility], [address] [place], [place] Sergio Hooper M.D., Ph.D., Director of Laboratories , [facility] [id number] Performed By: #### L [id number] ####[facility] ([facility]DB[facility])[address] [place], [place] [facility] LAMBDA LIGHT CHAIN, FREE, SERUM 22.4 mg/L Normal 5.7-26.3 [facility] Comment on above: Performed By: #### L [id number] ####[facility] (AMDB[facility]ER)[address] [place] [facility] Progress Noteon 08-25-2024 Progress Note ARRIVAL NOTE INFUSIO N Patient is here for lab draw 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 Site benign and patient tolerated well. Gauze and coban applied. 1403 Blood drawn per order and protocol, pt tolerated well. Denies concerns. DC home without complication. Normal [facility] SERUM ELECTROPHORESISon 08-16 Albumin [Mass/Vol] 4.1 g/dL Normal 3.1-4.8 [facility] Comment on above: Performed By: #### L [id number], [id number] ####Front Edger: BETTE HUGHES ([id number])[facility])[address] [place] [address] [place] ALPHA 1 0.3 g/dL Normal 0.2-0.4 [facility] Comment on above: Performed By: #### L [id number], [id number] ####Front Edger: BETTE HUGHES ([id number])[facility] ([facility])[address] [place] [address] [place] ALPHA 2 1.0 g/dL Normal 0.6-1.0 [facility] Comment on above: Performed By: #### L [id number], [id number] ####Front Edger: BETTE HUGHES ([id number])[facility])[address] [place] [address] [place] BETA 1 0.5 g/dl Normal 0.3-0.6 [facility] Comment on above: Performed By: #### L [id number], [id number] ####Front Edger: BETTE HUGHES ([id number])[address] BETA 2 0.5 g/dl Normal 0.3-0.5 [facility] Comment on above: Performed By: #### L [id number], [id number] ####Front Edger: BETTE HUGHES ([id number])[address] GAMMA GLOBULIN 1.2 g/dL Normal 0.4-1.4 [facility] Comment on above: Performed By: #### L [id number], [id number] ####Front Edger: BETTE HUGHES ([id number])[address] PROTEIN FRACTION (INTERPRETATION) IN SER/PLAS BY ELECTROPHORESIS See Below [facility] Comment on above: Result Comment: Dist inct band present in the gamma region. The band has a concentration of 0.37 g/dL. See SANTI for additional information. Performed By: #### L [id number], [id number] ####Front Edger: BETTE HUGHES ([id number])[address] RELEASED BY Bette Hughes M.D. [facility] Comment on above: Result Comment: This is an appended report. These results have been appended to a previously preliminary verified report. Performed By: #### L [id number], [id number] ####Front Edger: BETTE HUGHES ([id number])[address] REVIEWED BY Leila Robbins, Ph.D. [facility] Comment on above: Performed By: #### L [id number], [id number] ####Front Edger: BETTE [id number])[facility])[address] [place] [address] VITAMIN B12on 08-25-2024 Cobalamin (Vitamin B12) [Mass/Vol] 935 pg/mL High 213-816 [facility] Comment on above: Performed By: #### L AB67, LAB68 ####Front Edger: BETTE HUGHES ([id number])[facility] ([facility])[address] [place] [address] Office Visiton 07-26-2024 Follow-up visit [id number] Cata Ayers 1950 F Date Provider Department Center 07/26/2024 [id number] SERRANO [facility] ON[facility] None Family History Problem Relation Age of Onset Rheum arthritis Mother Comments: mid 50s Prostate cancer Father Comments: age 76 Diabetes Sister Comments: insulin, CHF , 2022 age 78 Diabetes Sister Comments: oral rx, alive age 74 Accidental Brother Comments: MVA 40 Prostate cancer Brother Arrhythmia Brother Comments: PVCs Other Brother Comments: PAD, smoker- ischemic bowel w/ resection Heart failure Brother Diabetes Brother Comments: insulin, age 74 in 04/08 Diabetes Maternal Grandmother Diabetes Maternal Grandfather Diabetes Paternal Grandmother Diabetes Paternal Grandfather Family Status - Relation Status Age at Mother Father Sister Sister Alive Brother Brother Alive Brother Alive Brother Maternal Grandmother Maternal Grandfather Paternal Grandmother Paternal Grandfather Level of Service:30779 [place] OFFICE/OUTPATIENT ESTABLISHED MOD MDM 30 MIN Reason for Visit and Comments: Consult [484] [facility] 36on 07-19-2024 36 Patient advised and voiced understanding. [facility] 36 Name of caller: Soniya escoto Contact phone number: [phone] Relationship to Patient: patient Provider: Dr. Marroquin Practice: [facility] Chief Complaint/Reason for Call: Patient called in asking why their apixaban (Eliquis) 2.5 MG tablet is the only medication the does not have a 90 day refill. Patient is asking if this could also be refilled for 90 days. Please advise. Best time of day caller can be reached: Any Patient advised that office/PCP has 24-48 business hours to return their call: No Normal [facility] 36on 07-18-2024 36 Last follow up: 12/03/2023 Next appointment: Visit date not found Allergies[1] Requested Prescriptions Pending Prescriptions Disp Refills apixaban (Eliquis) 2.5 MG tablet 60 tablet 3 Sig: Take 1 tablet (2.5 mg) by mouth 2 times daily. [1] Allergies Allergen Reactions Kiwi Extract Swelling Mouth and lip swelling Other reaction(s): Swelling Lisinopril Angioedema Cat Dander Itching Other Seasonal Other Runny nose Normal [facility] Office Visiton 07-12-2024 Follow-up visit [id number] Cata Ayers 1950 F Date Provider Department Center 07/12/2024 SADA WALKER [facility] Family History Problem Relation Age of Onset Rheum arthritis Mother Comments: mid 50s Prostate cancer Father Comments: age 76 Diabetes Sister Comments: insulin, CHF , 2022 age 78 Diabetes Sister Comments: oral rx, alive age 74 Accidental Brother Comments: MVA 40 Prostate cancer Brother Arrhythmia Brother Comments: PVCs Other Brother Comments: PAD, smoker- ischemic bowel w/ resection Heart failure Brother Diabetes Brother Comments: insulin, age 74 in 04/08 Diabetes Maternal Grandmother Diabetes Maternal Grandfather Diabetes Paternal Grandmother Diabetes Paternal Grandfather Family Status - Relation Status Age at Mother Father Sister Sister Alive Brother Brother Alive Brother Alive Brother Maternal Grandmother Maternal Grandfather Paternal Grandmother Paternal Grandfather Level of Service:54160 [place] OFFICE/OUTPATIENT ESTABLISHED [facility] 10 MIN Reason for Visit and Comments: Follow-up [078869] - 6 wk change in dm medication Normal [facility] Progress Noteon 07-12-2024 Progress Note - Chronic and unstable but markedly improving. Patient is agreeable to get her blood work done today. She started back on Jardiance 25 mg daily and her sugars seem to be getting better her daily sugars are around 150 fasting and she is also on glimepiride 4 mg twice a day we will continue this and recheck in 3 months. Normal [facility] Progress Note [facility] [place] [address] [facility] [address] Dept: [phone] Dept Loc: [phone] Visit type: Established Patient Reason for Visit: Follow-up (6 wk change in dm medication ) Assessment and Plan 1. Type 2 diabetes mellitus with hyperglycemia, without long-term current use of insulin ([facility]) Assessment & Plan: - Chronic and unstable but markedly improving. Patient is agreeable to get her blood work done today. She started back on Jardiance 25 mg daily and her sugars seem to be getting better her daily sugars are around 150 fasting and she is also on glimepiride 4 mg twice a day we will continue this and recheck in 3 months. Patient was on metformin in the past had severe GI side effects. She does not want to go back on that we talked about the possible use of GLP medications but for now she will stay on Jardiance no yeast infections or other issues she does states she is get a little dizzy from it but is willing to tolerate it for now and see if her sugars continue to get better control as long she continues to watch her diet. Follow up in about 3 months (around 10/12/2024), or with Dr. Marroquin for sugar control.. Subjective HPI this is a 74-year-old female underlying history of diabetes had previously stopped all of her diabetic medications. Sugar was out of control. Was last seen in the office approximately a month ago for concerns of having a syncopal episode. She was worked up in the emergency room. Unclear etiology of syncope she was started back on Jardiance for blood sugar control cardiac event monitor was ordered. Patient did start 12 days ago. She presents back to the office for follow-up. Checking sugars at home, but eating anything other than carbs still rising. States she is getting morning blood sugars around 150 she states is higher than she would like to be but it is much better than it has been in the past has been in the mid 200 range. She does report this mild dizziness that seems to wax and wanes intensity she denies any fever chills nausea vomiting or any other acute issues. Review of Systems Constitutional: Negative for chills and fever. HENT: Negative for congestion and sore throat. Respiratory: Negative for cough and shortness of breath. Cardiovascular: Negative for chest pain. Gastrointestinal: Negative for abdominal pain, diarrhea, nausea and vomiting. Genitourinary: Negative for difficulty urinating, dysuria, frequency and urgency. Musculoskeletal: Negative for back pain. Neurological: Positive for dizziness and light-headedness. All other systems reviewed and are negative. Allergies[1] Current Medications[2] Medical History[3] Social History Tobacco Use Smoking status: Never Smokeless tobacco: Never Substance Use Topics Alcohol use: No Surgical History[4] Family History[5] Objective BP 125/63 (BP Location: Left arm, Patient Position: Sitting, BP Cuff Size: Adult long) Pulse 65 Temp 36.1 ?C (97 ?F) (Temporal) Ht 5' 3 (1.6 m) Wt 172 lb (78 kg) SpO2 100% BMI 30.47 kg/m? Physical Exam Vitals reviewed. Constitutional: General: She is not in acute distress. Appearance: Normal appearance. She is not ill-appearing or toxic-appearing. Eyes: General: No scleral icterus. Conjunctiva/sclera: Conjunctivae normal. Pupils: Pupils are equal, round, and reactive to light. Neck: Vascular: No carotid bruit. Cardiovascular: Rate and Rhythm: Normal rate and regular rhythm. Heart sounds: Normal heart sounds. No murmur heard. Pulmonary: Effort: Pulmonary effort is normal. No respiratory distress. Breath sounds: Normal breath sounds. Musculoskeletal: Cervical back: Normal range of motion and neck supple. No rigidity or tenderness. Lymphadenopathy: Cervical: No cervical adenopathy. Skin: General: Skin is warm and dry. Neurological: Mental Status: She is alert. Psychiatric: Mood and Affect: Mood normal. Data Reviewed and Summarized Labs: Imaging/Testing: Sada Mace PA-C 07/12/2024 Please note that portions of this note may have been completed with voice recognition software. Documentation reviewed prior to signing but minor errors in proof coins inspector may have occurred. [1] Allergies Allergen Reactions Kiwi Extract Swelling Mouth and lip swelling Other reaction(s): Swelling Lisinopril Angioedema Cat Dander Itching Other Seasonal Other Runny nose [2] Current Outpatient Medications Medication Sig Dispense Refill atorvastatin (Lipitor) 10 MG tablet TAKE 1 TABLET (10 MG) BY MOUTH DAILY. 90 tablet 1 Eliquis 2.5 MG tablet TAKE 1 TABLET BY MOUTH 2 TIMES DAILY 60 tablet 3 empagliflozin (Jardiance) 25 MG Take 1 tablet (25 mg) by mouth daily. 90 tablet 1 ferrous sulfate 325 (65 Fe) MG tablet TAKE 1 TABLET BY MOUTH EVERY DAY WITH BREAKFAST 90 tablet 1 glimepiride (more content not included)... [place] [id number] 36 Recent Visits Date Type Provider Dept 06/14/24 Office Visit Sada Mace PA-C [facility] 06/07/24 Office Visit Sada Mace PA-C [facility] 05/25/24 Office Visit Alpesh Marroquin DO [facility] 01/26/24 Office Visit Alpesh Marroquin, [facility] 10/07/23 Office Visit Alpesh Marroquin DO [facility] Showing recent visits within past 365 days and meeting all other requirements Future Appointments Date Type Provider Dept 07/12/24 Appointment Sada Mace PA-C [facility] Showing future appointments within next 90 days and meeting all other requirements Requested Prescriptions Pending Prescriptions Disp Refills ferrous sulfate 325 (65 Fe) MG tablet [Pharmacy Med Name: FERROUS SULFATE 325 MG TABLET] 90 tablet 1 Sig: TAKE 1 TABLET BY MOUTH EVERY DAY WITH BREAKFAST Provider: Alpesh Marroquin DO Verified pharmacy: yes Verified day(s) supplied: yes Verified refill(s) needed (previous prescription showing no refills in chart): Yes Have you received any controlled medications from any other provider? N/A Overdue for visit: No If yes - patient scheduled? N/A Most recent labs completed in chart? N/A None [address] 06-16-2024 36 noted [facility] 36 Your patient has kathia ramsey scheduled for their event monitor on 06/30/24 at 9:30. If testing requires an insurance authorization, the authorization must be in place 48 hours prior to the scheduled test or testing will be cancelled. Thank you, Central Scheduling [address] 06-14-2024 36 Carly Howard MA 06/14/2024 8:36 AM EDT Back to [facility] 06/14/2024 8:36 AM EDT Back to [facility] Spoke with pt and she consents to referral to Dr Serrano. Carly Howard MA 06/14/2024 8:36 AM EDT Spoke with pt and she consents to referral to Dr Serrano. Carly Howard MA 06/13/2024 9:34 AM EDT Tried to call pt and v/m was full. Pt was sent message in my chart Alpesh MarroquinDO 06/12/2024 10:24 AM EDT Patient has an elevated IgG protein which can be evidence of early multiple myeloma versus what is termed a benign monoclonal gammopathy. She needs a consultation with Dr. Serrano again to evaluate. Please post referral Carly Howard MA 06/06/2024 10:17 AM EDT Placed call to patient. Two patient identifers confirmed. Was able to speak to patient. All concerns in message have been addressed. No questions at this time. Call ended Alpesh MarroquinDO 06/05/2024 8:12 PM EDT Patient has a slightly abnormal protein electrophoresis which could be sign of a bone marrow issue called multiple myeloma. Her immunoglobulins are normal but they are recommending further blood work. That has been ordered. Reviewing her record from a few years ago she saw hematology and she might have to touch base with them again if this lab test is abnormal. For now no new med changes and await additional lab work. Normal [facility] 36 Talked to patient an d reviewed message and she will wait on Bogdan's recommendation Normal [facility] 36 Will review message with patient at her appointment today. Normal [facility] 36 Spoke with pt and sh e says she just don't know what to do, she feels awful and no energy, she wanted to let you know she is seeing Sada Mace today. Normal [facility] AMB POC GLUCOSE TESTon 06-14 Glucose [Mass/Vol] 258 mg/dL Abnormal 70 - 100 mg/dL [facility] Interpretation and review of laboratory results Abnormal [facility] Office Visiton 06-14-2024 Follow-up visit [id number] Cata Ayers 1950 F Date Provider Department Center 06/14/2024 [id number] [place] [facility] Family History Problem Relation Age of Onset Rheum arthritis Mother Comments: mid 50s Prostate cancer Father Comments: age 76 Diabetes Sister Comments: insulin, CHF , 2022 age 78 Diabetes Sister Comments: oral rx, alive age 74 Accidental Brother Comments: MVA 40 Prostate cancer Brother Arrhythmia Brother Comments: PVCs Other Brother Comments: PAD, smoker- ischemic bowel w/ resection Heart failure Brother Diabetes Brother Comments: insulin, age 74 in 04/08 Diabetes Maternal Grandmother Diabetes Maternal Grandfather Diabetes Paternal Grandmother Diabetes Paternal Grandfather Family Status - Relation Status Age at Mother Father Sister Sister Alive Brother Brother Alive Brother Alive Brother Maternal Grandmother Maternal Grandfather Paternal Grandmother Paternal Grandfather Level of Service:24755 [place] OFFICE/OUTPATIENT ESTABLISHED MOD MDM 30 MIN Reason for Visit and Comments: ER Follow-up [831] - For medication reaction Normal [facility] Progress Noteon 06-14-2024 Progress Note [facility] - [address] [facility] [address] Dept: [phone] Dept Loc: [phone] Visit type: Established Patient Reason for Visit: ER Follow-up (For medication reaction ) Assessment and Plan 1. Type 2 diabetes mellitus without complication, without long-term current use of insulin ([facility]) - AMB POC GLUCOSE TEST - empagliflozin (Jardiance) 10 MG; Take 1 tablet (10 mg) by mouth daily., Starting Thu06/14/2024, Until Thu09/12/2024, Normal - CBC auto differential - Basic metabolic panel 2. Syncope, unspecified syncope type - Cardiac event monitor (14 days) - CBC auto differential - Basic metabolic panel Patient had what appeared to be a syncopal episode lasting no more than 30 seconds she appears stable here with no obvious signs of neurologic deficit although she does appear extremely fatigued and tired of unclear etiology I did review her most recent blood work her hemoglobin barely dropped from 10.6-10.4. She is encouraged to follow-up with hematology due to the developing a gammopathy recently. Concern is that her sugars are out of control now she is stopped all of her medications her current sugar is 258. Strongly encouraged her to resume her medications we talked about going to a lower dose of Jardiance as well as going back on the glimepiride I spoke at length with her family doctor Dr. Marroquin who discussed this at length and he is in agreements with the plan. I spent a total of 40 minutes on the date of the service which included preparing to see the patient, [id number] patient care, completing clinical documentation, performing a medically appropriate examination, counseling and educating the patient/family/caregi anitha, and ordering medications, tests, or procedures. No follow-ups on file. Subjective HPI Went to [place] [facility] on Thursday, blood work urine and EKG [place], after done shopping she had a syncope episode that lasted about 30 seconds. Sugar at that time was 224 and had episode of vomiting. Having issues with no energy no appetite and fatigue and just feeling wiped out. Was told blood work was fine and to stop taking the jardiance Patient presented to the ER 5 days ago for syncopal episode she was out shopping with her family members and sat down in her car and had an episode where she passed out for about 30 seconds in the back of the car and then came to there is no seizure activity she does not recall the event it happened very suddenly. EMS was called they state her sugar was fine at 224 there is no episodes of hypoglycemia however due to the event she was taken to the ER for evaluation and workup. Workup in the ER was largely unremarkable I did review the blood work no CT of her brain was done however there is no history of injury or trauma she never complained of a headache EKG was read as normal urine was checked which is clean no signs of dehydration or infection she did have a slight elevation of her BUN/creatinine at 24 and 1.26. Review of Systems Constitutional: Positive for activity change, appetite change, fatigue and unexpected weight change. Negative for chills and fever. HENT: Negative for congestion and sore throat. Respiratory: Negative for cough and shortness of breath. Cardiovascular: Negative for chest pain. Gastrointestinal: Positive for diarrhea. Negative for abdominal pain, nausea and vomiting. Genitourinary: Negative for difficulty urinating, dysuria, frequency and urgency. Musculoskeletal: Negative for back pain. Neurological: Negative for dizziness and light-headedness. All other systems reviewed and are negative. Allergies Allergen Reactions Kiwi Extract Swelling Mouth and lip swelling Other reaction(s): Swelling Lisinopril Angioedema Cat Dander Itching Other Current Outpatient Medications Medication Sig Dispense Refill atorvastatin (Lipitor) 10 MG tablet TAKE 1 TABLET (10 MG) BY MOUTH DAILY. 90 tablet 1 Eliquis 2.5 MG tablet TAKE 1 TABLET BY MOUTH 2 TIMES DAILY 60 tablet 3 ferrous sulfate 325 (65 Fe) MG tablet Take 1 tablet (325 mg) by mouth daily (with breakfast). 60 tablet 2 losartan-hydroCHLOROt hiazide (Hyzaar) 100-12.5 MG tablet TAKE 1 TABLET BY MOUTH EVERY DAY 90 tablet 1 omeprazole (PriLOSEC) [address] capsule Take 1 capsule (40 mg) by mouth daily for 180 doses. 90 capsule 1 empagliflozin (Jardiance) 10 MG Take 1 tablet (10 mg) by mouth daily. 30 tablet 2 glimepiride (Amaryl) 4 MG tablet Take 1 tablet (4 mg) by mouth 2 times daily. 180 tablet 1 No current facility-administered medications for this visit. 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 [facility] 36on 06-13-2024 36 Sent [employer] message [facility] 36 S: Patient spoke [place] [facility] nurse regarding medication reaction B: Onset of symptoms/concern A: Patient states she started empagliflozin (Jardiance) 25 MG 06/07/24. Patient had what she thinks was a reaction to the medication she started feeling faint,like she would pass out, her grandson called 911 and she was taken to ED at [facility] on Thursday. No notes available to review in chart. Patient states all labs were normal. Patient stopped taking the Jardiance as advised in ED. Patient states since then she does not have an appetite, and has been feeling weak. Patient's daughter is staying with her currently. R: Patient informed message would be sent to provider for review. ED follow up scheduled for tomorrow with Marleny Mace. Home care advice given, fluids encouraged. Patient informed message would be sent to provider for review. understands care advice. No further needs at this time. Patient instructed to call back with new or worsening symptoms. Reason for Disposition Caller has URGENT medicine question about med that PCP or specialist prescribed and triager unable to answer question Protocols used: Medication Question [id number] Normal [facility] Absolute lymphocyte countOrd ered By: Kendrick Nunes on 06-10-2024 Lymphocytes Auto (Unsp spec) [#/Vol] 3.20 10*3/uL 0.83-4.51 [facility] Absolute neutrophil countOrd ered By: Kendrick Nunes on 06-10-2024 Neutrophils (Bld) [#/Vol] 4.9 10*3/uL 2.0-7.7 [facility] Anion gap in Serum or Plasma Ordered By: Kendrick Nunes on 06-10-2024 Anion gap [Moles/Vol] 18 mmol/L High 5-15 [facility] Automated lymphocyte count a s percentage of total leukocytesOrdered By: Kendrick Nunes on 06-10-2024 Lymphocytes/100 WBC Auto (Unsp spec) 35.7 % 19-41 [facility] BUN/creatinine ratioOrdered By: Kendrick Nunes on 06-10-2024 Urea nitrogen/Creatinine [Mass ratio] 19.2 mg/mg 10- [facility] Basic Metabolic Profile (BMP )on 06-10-2024 BUN/CRE 19.2 RATIO Normal 10- [facility] Comment on above: Performed By: #### L 500.2500, L100.0100 #### [facility] [address] [place], [address] Calcium [Mass/Vol] 9.7 mg/dL Normal 7.6-11.0 [facility] Comment on above: Performed By: #### L 500.2500, L100.0100 #### [facility] [address] [place], [address] Chloride [Moles/Vol] 99 mmol/L Normal 98-108 [facility] Comment on above: Performed By: #### L 500.2500, L100.0100 #### [facility] [address] [place], [address] CO2 [Moles/Vol] 22.4 mmol/L Normal 21.0-32.0 [facility] Comment on above: Performed By: #### L 500.2500, L100.0100 #### [facility] [address] [place], [address] Creatinine [Mass/Vol] 1.26 mg/dL High 0.70-1.20 [facility] Comment on above: Performed By: #### L 500.2500, L100.0100 #### [facility] [address] [place], [address] ECRCL 38.14 ml/min Low 50-250 [facility] Comment on above: Performed By: #### L 500.2500, L100.0100 #### [facility] [address] [place], [address] GAP 18 High 5-15 [facility] Comment on above: Performed By: #### L 500.2500, L100.0100 #### [facility] [address] [place], [address] GFR/1.73 sq M.predicted among non-blacks MDRD (S/P/Bld) [Vol rate/Area] 44 mL/min/{1.73_m2} Low >60 [facility] Comment on above: Result Comment: mL/m in/1.73m2 CKD-EPI Creatinine Equation (2020) Performed By: #### L 500.2500, L100.0100 #### [facility] [address] [place], [address] Glucose [Mass/Vol] 217 mg/dL High 70-99 [facility] Comment on above: Performed By: #### L 500.2500, L100.0100 #### [facility] [address] [place], [address] Potassium [Moles/Vol] 3.9 mmol/L Normal 3.3-5.1 [facility] Comment on above: Performed By: #### L 500.2500, L100.0100 #### [facility] [address] [place], [address] Sodium [Moles/Vol] 139 mmol/L Normal 133-145 [facility] Comment on above: Performed By: #### L 500.2500, L100.0100 #### [facility] [address] [place], [address] Urea nitrogen [Mass/Vol] 24 mg/dL High 4-19 [facility] Comment on above: Performed By: #### L 500.2500, L100.0100 #### [facility] [address] [place], [address] Basophil percentageOrdered B y: Kendrick Nunes on 06-10-2024 Basophils/100 WBC (Bld) 0.9 % 0-1 [facility] Bilirubin Test strip Ql (U)O rdered By: Kendrick Nunes on 06-10-2024 Bilirubin Ql (U) Negative Negative [facility] CBC W/Diff, Automatedon 05-18 Absolute Lymph 3.20 X10 3/uL Normal 0.83-4.51 [facility] Comment on above: Performed By: #### L 500.2500, L100.0100 #### [facility] [address] [place], [address] Absolute Neut 4.9 X10 3/uL Normal 2.0-7.7 [facility] Comment on above: Performed By: #### L 500.2500, L100.0100 #### [facility] [address] [place], [address] Basophils/100 WBC (Bld) 0.9 % Normal 0-1 [facility] Comment on above: Performed By: #### L 500.2500, L100.0100 #### [facility] [address] [place], [address] Eosinophils/100 WBC (Bld) 1.6 % Normal 0-5 [facility] Comment on above: Performed By: #### L 500.2500, L100.0100 #### [facility] [address] [place], [address] Erythrocyte distribution width (RBC) [Ratio] 13.4 % Normal 11.6-14.6 [facility] Comment on above: Performed By: #### L 500.2500, L100.0100 #### [facility] [address] [place], [address] Hematocrit (Bld) [Volume fraction] 31.8 % Low 37-47 [facility] Comment on above: Performed By: #### L 500.2500, L100.0100 #### [facility] [address] [place], [address] Hemoglobin (Bld) [Mass/Vol] 10.4 g/dL Low 12.0-15. 0 [facility] Comment on above: Performed By: #### L 500.2500, L100.0100 #### [facility] [address] [place], [address] IG% 0.900 Normal 0.0-0.9 [facility] Comment on above: Result Comment: IG% - Immature Granulocytes (promyelocytes, myelocytes and metamyelocytes) > 1% indicates that a LEFT SHIFT is Present. Performed By: #### L 500.2500, L100.0100 #### [facility] [address] [place], [address] Lymphocytes/100 WBC (Bld) 35.7 % Normal 19-41 [facility] Comment on above: Performed By: #### L 500.2500, L100.0100 #### [facility] [address] [place], [address] MCH (RBC) [Entitic mass] 27.7 pg Normal 27.0-32.0 [facility] Comment on above: Performed By: #### L 500.2500, L100.0100 #### [facility] [address] [place], [address] MCHC (RBC) [Mass/Vol] 32.7 g/dL Normal 32-36 [facility] Comment on above: Performed By: #### L 500.2500, L100.0100 #### [facility] [address] [place], [address] MCV (RBC) [Entitic vol] 84.6 fL Normal 81-99 [facility] Comment on above: Performed By: #### L 500.2500, L100.0100 #### [facility] [address] [place], [address] Monocytes/100 WBC (Bld) 6.6 % Normal 0-10 [facility] Comment on above: Performed By: #### L 500.2500, L100.0100 #### [facility] [address] [place], [address] Neutrophils/100 WBC (Bld) 54.3 % Normal 47-70 [facility] Comment on above: Performed By: #### L 500.2500, L100.0100 #### [facility] [address] [place], [address] Nucleated RBC (Bld) [#/Vol] 0 10*3/uL Normal 0-5 [facility] Comment on above: Performed By: #### L 500.2500, L100.0100 #### [facility] [address] [place], [address] Platelet mean volume (Bld) [Entitic vol] 9.0 fL Normal 6.2-12.0 [facility] Comment on above: Performed By: #### L 500.2500, L100.0100 #### [facility] [address] [place], [address] Platelets (Bld) [#/Vol] 485 10*3/uL High 150-450 [facility] Comment on above: Performed By: #### L 500.2500, L100.0100 #### [facility] [address] [place], [address] RBC (Bld) [#/Vol] 3.76 10*6/uL Low 4.2-5.4 [facility] Comment on above: Performed By: #### L 500.2500, L100.0100 #### [facility] [address] [place], [address] RDW SD 41.6 fl Normal 35.1-43.9 [facility] Comment on above: Performed By: #### L 500.2500, L100.0100 #### [facility] [address] [place], [address] WBC (Bld) [#/Vol] 9.0 10*3/uL Normal 4.4-11.0 [facility] Comment on above: Performed By: #### L 500.2500, L100.0100 #### [facility] [address] [place], [address] Carbon dioxide, total [Moles /volume] in Central venous bloodOrdered By: Kendrick Nunes on 06-10-2024 CO2 [Moles/Vol] 22.4 mmol/L 21.0-32.0 [facility] Chloride assayOrdered By: Dudley Nunes on 06-10-2024 Chloride [Moles/Vol] 99 mmol/L 98-108 [facility] Emergency Department Summary on 06-10-2024 Emergency Department Summary [facility] Medical Records Department [address] [place] [address] Emergency Department Summary 06/10/24 MR#: [id number] Acct: [id number] Name: CATA AYERS Rep #: [id number] : [id number] 74 From: Kendrick Agosto PCP: Dr. Alpesh Marroquin, Status:DEP ER Location: ED HPI History of Present Illness Chief Complaint: General Illness Informant: patient Narrative Narrative: Presents by EMS from home states grandson called EMS patient states she may have passed out. Started on new diabetic medication 3 days ago Jardiance started by her primary care office. She states she stopped her metformin 10 days ago due to causing diarrhea. New medication was started she is currently on glimepiride with this. She states she is doing okay prior to starting the medication. Since then increasing nausea. States with EMS arrival she had a few emesis no hematemesis. No abdominal pain no chest pain no dyspnea. No fevers. She states she is feels fatigued and tired. Denies urinary symptoms. Prior similar symptoms: No PFSH PFSH Medical History Wears dentures Wears glasses Post-menopausal Diabetes Arthritis Kidney stones Fatty liver Anemia High cholesterol Dietary restriction Gastric reflux Non-smoker History of pain when walking History of edema Hypercholesteremia Type 2 diabetes mellitus Lumbar disc disease Cholelithiasis GERD (gastroesophageal reflux disease) Vitamin B12 deficiency Cystoid macular edema HTN (hypertension) Renal cyst Home Medications ???Medication ???Instructions ???Recorded ???Last Taken ???Type amlodipine 5 mg tablet 5 mg PO DAILY 04/02/22 06/19/22 09 :30 History atorvastatin 10 mg tablet 10 mg PO DAILY 04/02/22 Unknown Hi story cholestyramine (with sugar) 4 gram 0.5 ea PO QHS 04/02/22 Unknown H istory oral powder glimepiride 4 mg tablet 4 mg PO DAILY 04/02/22 Unknown His tory mecobalamin (vitamin B12) 500 mcg 500 mcg PO DAILY 04/02/22 Unknown History chewable tablet metformin 500 mg tablet 1,000 mg PO BID 04/02/22 Unknown H istory omeprazole 40 mg capsule,delayed 40 mg PO DAILY 04/02/22 Unknown Hi story release losartan 100 1 tab PO DAILY 06/17/22 Unknown Hi story mg-hydrochlorothiazid e 12.5 mg tablet dicyclomine 20 mg tablet 20 mg PO BID #180 tabs 07/16/22 Un known Rx ondansetron 4 mg disintegrating 4 mg PO Q8H PRN PRN Nausea #10 tab s 06/10/24 Unknown Rx tablet Allergy/AdvReac Type Severity Reaction Status Date / Time kiwi Allergy Intermediate Swelling Verified 06/10/24 16:35 lisinopril Allergy Intermediate Other Verified 06/10/24 16:35 cat dander (cats) Allergy Itching Verified 06/10/24 16:40 Family History Father Prostate cancer Brother Hx of resection of large bowel PAD (peripheral artery disease) Mother Rheumatoid arthritis Sister Diabetes Brother Diabetes Surgical History History of partial hysterectomy History of cholecystectomy Social History Smoking Status: Never smoker alcohol intake: never ROS ROS ED Constitutional Constitutional ED: Denies chills, fever(s) or sweats ENT ENT ED: Denies sore throat Cardiovascular Cardiovascular: Reports other Details: Possible syncope ; Denies chest pain, leg edema, palpitations or racing heartbeat Respiratory/Chest Respiratory/Chest: Denies cough, dyspnea or dyspnea on exertion Gastrointestinal Gastrointestinal: Reports nausea and vomiting; Denies abdominal pain or diarrhea Genitourinary Genitourinary ED: Denies dysuria, hematuria or urinary frequency Musculoskeletal Musculoskeletal: Denies back pain, extremity pain or neck pain Integumentary Denies rash or wounds Neurologic Neurologic: Denies headache(s), paresthesias or weakness EXAM Physical Exam Const Vital Signs: 06/10/24 16:33 06/10/24 18:09 06/10/24 18:30 Temperature 97.7 F L Temperature Source Oral Pulse Rate 63 70 Respiratory Rate 13 Respiratory Effort Normal Non-Labored Blood Pressure 136/64 H 132/5 H Blood Pressure Mean 88 47 Pulse Ox 95 93 Oxygen Delivery Method Room Air Room Air 06/10/24 19:27 06/10/24 19:55 Temperature 97.7 F L Temperature Source Pulse Rate 64 64 Respiratory Rate 16 16 Respiratory Effort Blood Pressure 136/54 H 139/50 H Blood Pressure Mean 81 79 Pulse Ox 98 98 Oxygen Delivery Method Room Air Positive well nourished and well developed General Appearance ED: well developed and NAD HEENT Reports moist mucous membranes normocephalic and atraumatic Eyes General Eye ED: Yes normal appearance (more content not included)... Normal [facility] Eosinophil percentageOrdered By: Kendrick Nunes on 06-10-2024 Eosinophils/100 WBC (Bld) 1.6 % 0-5 [facility] Erythrocyte distribution wid th ratioOrdered By: Kendrick Nunes on 06-10-2024 Erythrocyte distribution width (RBC) [Ratio] 13.4 % 11.6-14.6 [facility] Erythrocyte distribution wid th standard deviationOrdered By: Kendrick Nunes on 06-10-2024 Erythrocyte distribution width (RBC) [Ratio] 41.6 fl 35.1-43.9 [facility] Glomerular filtration rate ( GFR) estimation/1.73 sq m using serum, plasma, or whole bOrdered By: Kendrick Nunes on 06-10-2024 GFR/1.73 sq M.predicted among non-blacks MDRD (S/P/Bld) [Vol rate/Area] 44 mL/min/{1.73_m2} Low >60 [facility] Comment on above: mL/min/1.73m2 CKD-EP I Creatinine Equation (2020) Hematocrit Auto (Bld) [Volum e fraction]Ordered By: Kendrick Nunes 06-10-2024 Hematocrit (Bld) [Volume fraction] 31.8 % Low 37-47 [facility] Hemoglobin measurementOrdere d By: Kendrick Nunes 06-10-2024 Hemoglobin (Bld) [Mass/Vol] 10.4 g/dL Low 12.0-15. 0 [facility] Immature granulocytes/100 WB C Auto (Bld)Ordered By: Kendrick Nunes 06-10-2024 Immature granulocytes/100 WBC (Bld) 0.900 % 0.0-0.9 [facility] Comment on above: IG% - Immature Granu locytes (promyelocytes, myelocytes and metamyelocytes) > 1% indicates that a LEFT SHIFT is Present. Ketones Test strip Ql (U)Ord ered By: Kendrick Nunes 06-10-2024 Ketones Ql (U) 15 mg/dl High Negative [facility] MCV (mean corpuscular volume ) determinationOrdered By: Kendrick Nunes 06-10-2024 MCV (RBC) [Entitic vol] 84.6 fL 81-99 [facility] Mean corpuscular hemoglobin (MCH) determinationOrdered By: Kendrick Nunes 06-10-2024 MCH (RBC) [Entitic mass] 27.7 pg 27.0-32.0 [facility] Mean corpuscular hemoglobin concentration (MCHC) determinationOrdered By: Kendrick Nunes on 06-10-2024 MCHC (RBC) [Mass/Vol] 32.7 g/dL 32-36 [facility] Mean platelet volume determi nationOrdered By: Kendrick Nunes on 06-10-2024 Platelet mean volume (Bld) [Entitic vol] 9.0 fL 6.2-12.0 [facility] Microscopic analysis of urin e for red blood cells (RBC)Ordered By: Kendrick Nunes on 06-10-2024 Microscopic analysis of urine for red blood cells (RBC) 0 SEEN /hpf 0-5 [facility] Monocyte percentageOrdered B y: Kendrick Nunes on 06-10-2024 Monocytes/100 WBC (Bld) 6.6 % 0-10 [facility] Mucus LM Ql (Urine sed)Order ed By: Kendrick Nunes on 06-10-2024 Mucus Ql (Urine sed) 0 SEEN /hpf [facility] Neutrophil percentageOrdered By: Kendrick Nunes on 06-10-2024 Neutrophils/100 WBC (Bld) 54.3 % 47-70 [facility] Nitrite Test strip Ql (U)Ord ered By: Kendrick Nunes on 06-10-2024 Nitrite Ql (U) Negative Negative [facility] Nucleated red blood cell per centageOrdered By: Kendrick Nunes on 06-10-2024 Nucleated RBC/100 WBC (Bld) [Ratio] 0 % 0-5 [facility] Platelet countOrdered By: Dudley Nunes on 06-10-2024 Platelets (Bld) [#/Vol] 485 10*3/uL High 150-450 [facility] Potassium measurement (mass/ volume)Ordered By: Kendrick Nunes on 06-10-2024 Potassium (Unsp spec) [Mass/Vol] 3.9 mmol/L 3.3-5.1 [facility] Protein Test strip Ql (U)Ord ered By: Kendrick Nunes on 06-10-2024 Protein Ql (U) Negative Negative [facility] RBC Auto (Bld) [#/Vol]Ordere d By: Kendrick Nunes on 06-10-2024 RBC (Bld) [#/Vol] 3.76 10*6/uL Low 4.2-5.4 [facility] Serum creatinine measurement (mass/volume)Ordered By: Kendrick Nunes on 06-10-2024 Creatinine [Mass/Vol] 1.26 mg/dL High 0.70-1.20 [facility] Serum glucose measurement (m ass/volume)Ordered By: Kendrick Nunes on 06-10-2024 Glucose [Mass/Vol] 217 mg/dL High 70-99 [facility] Serum or plasma calcium jose guadalupe urement (mass/volume)Ordered By: Kendrick Nunes on 06-10-2024 Calcium [Mass/Vol] 9.7 mg/dL 7.6-11.0 [facility] Serum or plasma urea nitroge n measurement (mass/volume)Ordered By: Kendrick Nunes on 06-10-2024 Urea nitrogen [Mass/Vol] 24 mg/dL High 4-19 [facility] Sodium levelOrdered By: Kendrick Nunes on 06-10-2024 Sodium [Moles/Vol] 139 mmol/L 133-145 [facility] Squamous epithelial cells de tection in urine sediment by light microscopyOrdered By: Kendrick Nunes on 06-10-2024 Epithelial cells.squamous LM Ql (Urine sed) 0-5 SEEN /hpf -10 [facility] Urinalysis, Completeon 06-10 WBC 0-5 SEEN Normal 0-5 [facility] Comment on above: Order Comment: CLEAN CATCH Performed By: #### L 400.0001 #### [facility] [address] [place], [place], [id number] EPI,SQUAMOUS 0-5 SEEN Normal 5-10 [facility] Comment on above: Order Comment: CLEAN CATCH Performed By: #### L 400.0001 #### [facility] [address] [place], [place], [id number] BACTERIA 0 SEEN Normal None Seen [facility] Comment on above: Order Comment: CLEAN CATCH Performed By: #### L 400.0001 #### [facility] [address] [place], [place], [id number] Mucus Ql (Urine sed) 0 SEEN Normal [facility] Comment on above: Order Comment: CLEAN CATCH Performed By: #### L 400.0001 #### [facility] [address] [place], [place], [address] RBC 0 SEEN Normal 0-5 [facility] Comment on above: Order Comment: CLEAN CATCH Performed By: #### L 400.0001 #### [facility] [address] [place], [place], [id number] Urine clarityOrdered By: Ernesto Nunes on 06-10-2024 Clarity (U) Clear Clear [facility] Urine color determinationOrd ered By: Kendrick Nunes on 06-10-2024 Color (U) Yellow Yellow [facility] Urine glucose detectionOrder ed By: Kendrick Nunes on 06-10-2024 Glucose Ql (U) 1000 mg/dl High Normal [facility] Urine leukocyte esterase det ection by dipstickOrdered By: Kendrick Nunes on 06-10-2024 Leukocyte esterase Test strip Ql (U) 25 /ul High Negative [facility] Urine pHOrdered By: Kendrick Nunes on 06-10-2024 pH (U) 6.0 [pH] 5.0 - 8.0 [facility] Urine sediment bacteria coun t by microscopy (number/high power field)Ordered By: Kendrick Nunes on 06-10-2024 Bacteria LM.HPF (Urine sed) [#/Area] 0 /[HPF] None Seen [facility] Urine specific gravity measu rementOrdered By: Kendrick Nunes on 06-10-2024 Specific gravity (U) [Rel density] 1.010 1.002-1.030 [facility] Urine urobilinogen measureme ntOrdered By: Kendrick Nunes on 06-10-2024 Urobilinogen Ql (U) Normal mg/dl Normal [facility] White blood cell (WBC) count Ordered By: Kendrick Nunes on 06-10-2024 WBC (Bld) [#/Vol] 9.0 10*3/uL 4.4-11.0 [facility] White blood cell countOrdere d By: Kendrick Nunes on 06-10-2024 White blood cell count 0-5 SEEN /hpf 0-5 [facility] IMMUNOFIXATION ELECTROPHORES Jessika 04-22-2025 IMMUNOFIXATION ELECTROPHORESIS See Below [facility] Comment on above: Order Comment: THIS IS A CARVE-OUT TEST. SEND SPECIMEN TO [facility] [facility] Result Comment: A mo noclonal IgG kappa protein is present. Serum free light chain levels are recommended, if clinically indicated. Performed By: #### L [id number] ####Front Edger: BETTE HUGHES ([id number])[facility])[address] [place] [address] RELEASED BY Bette Hughes M.D. [facility] Comment on above: Order Comment: THIS IS A CARVE-OUT TEST. SEND SPECIMEN TO [facility] Performed By: #### L [id number] ####Front Edger: BETTE HUGHES ([id number])[facility] ([facility])[address] [place] [address] REVIEWED BY Astrid RobbinsBFrancisca, Ph.D. [facility] Comment on above: Order Comment: THIS IS A CARVE-OUT TEST. SEND SPECIMEN TO [facility] Performed By: #### L [id number] ####Front Edger: BETTE HUGHES ([id number])[facility])[address] [place] [address] Office Visiton 06-07-2024 Follow-up visit [id number] Cata Ayers 1950 F Date Provider Department Center 06/07/2024 SADA WALKER [facility] Family History Problem Relation Age of Onset Rheum arthritis Mother Comments: mid 50s Prostate cancer Father Comments: age 76 Diabetes Sister Comments: insulin, CHF , 2022 age 78 Diabetes Sister Comments: oral rx, alive age 74 Accidental Brother Comments: MVA 40 Prostate cancer Brother Arrhythmia Brother Comments: PVCs Other Brother Comments: PAD, smoker- ischemic bowel w/ resection Heart failure Brother Diabetes Brother Comments: insulin, age 74 in 04/08 Diabetes Maternal Grandmother Diabetes Maternal Grandfather Diabetes Paternal Grandmother Diabetes Paternal Grandfather Family Status - Relation Status Age at Mother Father Sister Sister Alive Brother Brother Alive Brother Alive Brother Maternal Grandmother Maternal Grandfather Paternal Grandmother Paternal Grandfather Level of Service:14822 [place] OFFICE/OUTPATIENT ESTABLISHED MOD MDM 30 MIN Reason for Visit and Comments: Blood Sugar Problem [957586] - Patient stopped taking her metformin due to diarrhea 05/31/24 and now having increasing blood sure Patient also stopped 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 - Patient is agreeable to her other oral medications will consider starting on Jardiance versus Januvia and possibly would consider Rybelsus patient does not want an injectable medication at this time. 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 Type 2 diabetes mellitus without complication, without long-term current use of insulin ([facility]) Assessment & Plan: - Chronic and unstable did not tolerate the side effects of severe GI imbalance and diarrhea with metformin so she discontinued the metformin as well as the Actos and Amaryl. - Patient is agreeable to her other oral medications will consider starting on Jardiance versus Januvia and possibly would consider Rybelsus patient does not want an injectable medication at this time. Orders: - empagliflozin (Jardiance) 25 MG; Take 1 tablet (25 mg) by mouth daily for 14 days., Starting Thu06/07/2024, Until Thu06/21/2024, Sample Patient's A1c has been climbing previously her medication was increased recently but she states she became relatively frustrated as she was doing some research online and feels that her bowel issues and her diarrhea were caused by the use of her multiple diabetic medications including but not limited to the use of metformin at 2000 mg daily. Since she has stopped some of her oral medications the symptoms of GI problems loose stools and cramping abdominal pain have resolved she is concerned now she wants her sugar under control so we talked about the use of Jardiance she was given a 2-week supply in the office to see how she tolerates the medication and then if she does well in a prescription but given to continue this and closely follow-up to see the response of her A1c. Follow up in about 6 weeks (around 07/19/2024) for DM f/u. Subjective HPI this is a 74-year-old female with underlying history of hypertension, history of pulmonary embolus on Eliquis, GERD, B12 deficiency and diabetes who was concerned that her blood sugar was elevated but did report stopping metformin. Patient contacted the triage yesterday for next a same-day acute evaluation for concerns of loose stool and diarrhea 5 times daily over the last 3 years. She did report that she stopped the metformin over a week ago with bowel movements decreasing to every 2 to 3 days with more formation of her stool. But reports that her blood sugars are now running high from 140-160 Review of Systems Constitutional: Negative for chills and fever. Respiratory: Negative for cough and shortness of breath. Cardiovascular: Negative for chest pain. Gastrointestinal: Negative for abdominal pain, diarrhea, nausea and vomiting. Genitourinary: Positive for frequency. Negative for difficulty urinating, dysuria and urgency. Neurological: Negative for dizziness and light-headedness. All other systems reviewed and are negative. Allergies Allergen Reactions Kiwi Extract Swelling Mouth and lip swelling Other reaction(s): Swelling Lisinopril Angioedema Other Current Outpatient Medications Medication Sig Dispense Refill atorvastatin (Lipitor) 10 MG tablet TAKE 1 TABLET (10 MG) BY MOUTH DAILY. 90 tablet 1 dicyclomine (Bentyl) 10 MG capsule TAKE 1 CAPSULE BY MOUTH TWICE A DAY 180 capsule 1 Eliquis 2.5 MG tablet TAKE 1 TABLET BY MOUTH 2 TIMES DAILY 60 tablet 3 ferrous sulfate 325 (65 Fe) MG tablet Take 1 tablet (325 mg) by mouth daily (with breakfast). 60 tablet 2 losartan-hydroCHLOROt hiazide (Hyzaar) 100-12.5 MG tablet TAKE 1 TABLET BY MOUTH EVERY DAY 90 tablet 1 omeprazole (PriLOSEC) [address] capsule Take 1 capsule (40 mg) by mouth daily for 180 doses. 90 capsule 1 empagliflozin (Jardiance) 25 MG Take 1 tablet (25 mg) by mouth daily for 14 days. 14 tablet 0 No current facility-administered medications for this visit. 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 Underwood- no f/u Cscope indicated B12 deficiency 02/2021 Breast cancer screening 09/2020 defers rech as of 02/08 Chronic anticoagulation 2023 Eliquis Chronic diarrhea 2022 n/s colitis per Cscope Cystoid macular edema 2018 Schartman, Optho Elbow fracture, left 195 Essential hypertension 2011 GERD with esophagitis 2012 EGD 07/[address] Underwood- HH w/ duodenitis H/O colonoscopy 06/2022 Dr Underwood- ileal AVMs cauterized- no need for rech History of renal stone 2005 Iron deficiency anemia 2022 Dr. Serrano consult- resolved on rx Left rotator cuff tear 2012 Lumbar disc disease 2005 MRI- right sciatica Post-cholecystecto (more content not included)... [facility] 36on 06-06-2024 36 S: Patient spoke spring [facility] CAC nurse regarding diarrhea B: Onset of symptoms/concern A: Pt endorses loose stools or diarrhea up to 5 five daily for over 3 years. Pt endorses stopped Metformin over a week ago with bowel movement decrease to every 2-3 days with more formation. Pt endorses blood sugar high, between 140-160 without any carbohydrates. PT requesting office visit at this time. No known COVID/flu exposure, symptoms or recent vaccines. R: scheduled office visit 06/07/24, advise to arrive 10 min early with ID, insurance card and list of current mediations. No further needs at this time. Patient instructed to call back with new or worsening symptoms. Reason for Disposition Nursing judgment Appointment scheduled Protocols used: Information Only Call - No [id number] [facility] 29on 06-05-2024 29 Addended by: VALORIE BAEZ on: 06/07/2024 11:40 AM Modules accepted: Orders Normal [facility] 36on 05-30-2024 36 Recent Visits Date Type Provider Dept 05/25/24 Office Visit Alpesh Wang Lopez, DO [facility] 01/26/24 Office Visit Alpesh Marroquin, DO [facility] 10/07/23 Office Visit Alpesh Marroquin, DO [facility] Showing recent visits within past 365 days and meeting all other requirements Future Appointments No visits were found meeting these conditions. Showing future appointments within next 90 days and meeting all other requirements Requested Prescriptions Pending Prescriptions Disp Refills dicyclomine (Bentyl) 10 MG capsule [Pharmacy Med Name: DICYCLOMINE 10 MG CAPSULE] 180 capsule 1 Sig: TAKE 1 CAPSULE BY MOUTH TWICE A DAY atorvastatin (Lipitor) 10 MG tablet [Pharmacy Med Name: ATORVASTATIN 10 MG TABLET] 90 tablet 1 Sig: TAKE 1 TABLET (10 MG) BY MOUTH DAILY. losartan-hydroCHLOROt hiazide (Hyzaar) 100-12.5 MG tablet [Pharmacy Med Name: LOSARTAN-HCTZ 100-12.5 MG TAB] 90 tablet 1 Sig: TAKE 1 TABLET BY MOUTH EVERY DAY Provider: Alpesh Marroquin DO Verified pharmacy: yes Verified day(s) supplied: yes Verified refill(s) needed (previous prescription showing no refills in chart): Yes Have you received any controlled medications from any other provider? N/A Overdue for visit: No If yes - patient scheduled? Yes Most recent labs completed in chart? Yes Hypertension: Lab Results Component Value Date NA 136 05/02/2023 K 3.9 05/02/2023 EGFR 46 (L) 05/25/2024 BUN 17 05/25/2024 CREATININE 1.22 (H) 05/25/2024 and Cholesterol: Lab Results Component Value Date CHOLESTEROLT 169 05/25/2024 HDLCHOLESTER 68 05/25/2024 TRIGLYCERIDE 148 05/25/2024 LDLCHOLESTER 76 05/25/2024 CHOLHDLCRATI 2.5 05/25/2024 NONHDLCHOLES 101 05/25/2024 Normal [facility] IG CONCENTRATION, BLOOD (IMM UNOFIXATION ELECTROPHORESIS)on 05-30-2024 IGA, BLOOD 270 mg/dL Normal 85-600 [facility] Comment on above: Order Comment: THIS IS A CARVE-OUT TEST. SEND SPECIMEN TO [facility] Performed By: #### L [id number] ####Front Edger: NAKUL BLANCO ([id number])[facility] ([facility])[address] [place] [address] IGG, BLOOD 1136 mg/dL Normal 540-1722 [facility] Comment on above: Order Comment: THIS IS A CARVE-OUT TEST. SEND SPECIMEN TO [facility] Performed By: #### L [id number] ####Front Edger: NAKUL BLANCO ([id number])[facility] ([facility])[address] [place] [address] IGM, BLOOD 99 mg/dL Normal 25-265 [facility] Comment on above: Order Comment: THIS IS A CARVE-OUT TEST. SEND SPECIMEN TO [facility] Performed By: #### L [id number] ####Front Edger: NAKUL BLANCO ([id number])[facility] ([facility])[address] [place] [address] IMMUNOFIXATION ELECTROPHORES Jessika 05-30-2024 IMMUNOFIXATION ELECTROPHORESIS See Below Normal [facility] Comment on above: Order Comment: THIS IS A CARVE-OUT TEST. SEND SPECIMEN TO [facility] Result Comment: A mo noclonal IgG kappa protein is present. Performed By: #### L [id number] ####Front Edger: BETTE HUGHES ([id number])[facility] ([facility])[address] [place] [address] SERUM ELECTROPHORESISon 05-17 Albumin [Mass/Vol] 4.0 g/dL Normal 3.1-4.8 [facility] Comment on above: Order Comment: THIS IS A CARVE-OUT LAB: SPECIMEN MUST BE SENT TO [facility] Performed By: #### L [id number] ####Front Edger: BETTE HUGHES ([id number])[facility] ([facility])[address] [place] [address] ALPHA 1 0.3 g/dL Normal 0.2-0.4 [facility] Comment on above: Order Comment: THIS IS A CARVE-OUT LAB: SPECIMEN MUST BE SENT TO [facility] Performed By: #### L [id number] ####Front Edger: BETTE HUGHES ([id number])[facility])[address] [place] [address] ALPHA 2 1.1 g/dL High 0.6-1.0 [facility] Comment on above: Order Comment: THIS IS A CARVE-OUT LAB: SPECIMEN MUST BE SENT TO [facility] Performed By: #### L [id number] ####Front Edger: BETTE HUGHES ([id number])[address] BETA 1 0.6 g/dl Normal 0.3-0.6 [facility] Comment on above: Order Comment: THIS IS A CARVE-OUT LAB: SPECIMEN MUST BE SENT TO [facility] Performed By: #### L [id number] ####Front Edger: BETTE HUGHES ([id number])[address] BETA 2 0.5 g/dl Normal 0.3-0.5 [facility] Comment on above: Order Comment: THIS IS A CARVE-OUT LAB: SPECIMEN MUST BE SENT TO [facility] Performed By: #### L [id number] ####Front Edger: BETTE HUGHES ([id number])[address] GAMMA GLOBULIN 1.1 g/dL Normal 0.4-1.4 [facility] Comment on above: Order Comment: THIS IS A CARVE-OUT LAB: SPECIMEN MUST BE SENT TO [facility] Performed By: #### L [id number] ####Front Edger: BETTE HUGHES ([id number])[facility])[address] [place] [address] PROTEIN FRACTION (INTERPRETATION) IN SER/PLAS BY ELECTROPHORESIS See Below Normal [facility] Comment on above: Order Comment: THIS IS A CARVE-OUT LAB: SPECIMEN MUST BE SENT TO [facility] Result Comment: Dist inct band present in the gamma region.The band has a concentration of 0.36 g/dL. See SANTI for additional information. Performed By: #### L [id number] ####Front Edger: BETTE HUGHES ([id number])[facility])[address] [place] [address] RELEASED BY Cole Burns M.D. [facility] Comment on above: Order Comment: THIS IS A CARVE-OUT LAB: SPECIMEN MUST BE SENT TO [facility] Result Comment: This is an appended report. These results have been appended to a previously preliminary verified report. Performed By: #### L [id number] ####Front Edger: BETTE HUGHES ([id number])[facility])[address] [place] [address] Order Comment: THIS IS A CARVE-OUT TEST. SEND SPECIMEN TO [facility] Performed By: #### L [id number] ####Front Edger: BETTE HUGHES ([id number])[address] REVIEWED BY Jorge Robbins., Ph.D. [facility] Comment on above: Order Comment: THIS IS A CARVE-OUT LAB: SPECIMEN MUST BE SENT TO [facility] Performed By: #### L [id number] ####Front Edger: BETTE HUGHES ([id number])[address] Order Comment: THIS IS A CARVE-OUT TEST. SEND SPECIMEN TO [facility] Performed By: #### L [id number] ####Front Edger: BETTE HUGHES ([id number])[address] TOTAL PROTEIN (SERUM PROTEIN ELECTROPHORESIS)on 05-30-2024 Protein [Mass/Vol] 7.6 g/dL Normal 6.4-8.3 [facility] Comment on above: Order Comment: THIS IS A CARVE-OUT LAB: SPECIMEN MUST BE SENT TO [facility] Result Comment: Seru m protein values are higher than plasma values. Samples from recumbent persons are lower by up to 0.5 g/dL as compared to ambulatory persons. After 60 years values are lower by up to 0.2 g/dL. Performed By: #### L [id number] ####Front Edger: BETTE HUGHES ([id number])[facility] [place] [address] 05-29-2024 29 Addended by: YANCY HERNDON on: 05/30/2024 01:51 PM Modules accepted: Orders [facility] 36on 05-27-2024 36 Recent Visits Date Type Provider Dept 05/25/24 Office Visit Alpesh Marroquin, DO [facility] 01/26/24 Office Visit Alpesh Marroquin, DO [facility] 10/07/23 Office Visit Alpesh Marroquin DO [facility] Showing recent visits within past 365 days and meeting all other requirements Future Appointments No visits were found meeting these conditions. Showing future appointments within next 90 days and meeting all other requirements Requested Prescriptions Pending Prescriptions Disp Refills metFORMIN (Glucophage) 500 MG tablet [Pharmacy Med Name: METFORMIN HCL 500 MG TABLET] 360 tablet 1 Sig: TAKE 2 TABLETS BY MOUTH 2 TIMES DAILY Provider: Alpesh Marroquin DO Verified pharmacy: yes Verified day(s) supplied: yes Verified refill(s) needed (previous prescription showing no refills in chart): Yes Have you received any controlled medications from any other provider? N/A Overdue for visit: No If yes - patient scheduled? Yes Most recent labs completed in chart? Yes Diabetes: Lab Results Component Value Date HGBA1C 8.5 (H) 05/25/2024 MICROALBCREA < 30 mg 08/23/2020 POCMALB 10 200 < 30 03/06/2022 BUNCREATININ 14 05/25/2024 K 3.9 05/02/2023 NA 136 05/02/2023 LDL 91 08/21/2021 HDL 76 (H) 08/21/2021 CHOLESTEROLT 169 05/25/2024 TRIG 129 08/21/2021 [facility] Office Visiton 05-25-2024 Follow-up visit [id number] Cata Ayers 1950 F Date Provider Department Center 05/25/2024 [id number] MARROQUIN F [facility] Family History Problem Relation Age of Onset Rheum arthritis Mother Comments: mid 50s Prostate cancer Father Comments: age 76 Diabetes Sister Comments: insulin, CHF , 2022 age 78 Diabetes Sister Comments: oral rx, alive age 74 Accidental Brother Comments: MVA 40 Prostate cancer Brother Arrhythmia Brother Comments: PVCs Other Brother Comments: PAD, smoker- ischemic bowel w/ resection Heart failure Brother Diabetes Brother Comments: insulin, age 74 in 04/08 Diabetes Maternal Grandmother Diabetes Maternal Grandfather Diabetes Paternal Grandmother Diabetes Paternal Grandfather Family Status - Relation Status Age at Mother Father Sister Sister Alive Brother Brother Alive Brother Alive Brother Maternal Grandmother Maternal Grandfather Paternal Grandmother Paternal Grandfather Level of Service:02968 [place] OFFICE/OUTPATIENT ESTABLISHED MOD MDM 30 MIN Reason for Visit and Comments: Follow-up [725661] - 4 month follow up Normal [facility] Progress Noteon 05-25-2024 Progress Note [facility] - [address] [facility] [address] Visit type: Established Patient Reason for Visit: Follow-up (4 month follow up) Assessment / Plan: Cata was seen today for follow-up. Diagnoses and all orders for this visit: Type 2 diabetes mellitus without complication, without long-term current use of insulin (HCC) (Primary) Comments: Improved on Amaryl and metformin Orders: - Hemoglobin A1c; Future - Hemoglobin A1c Essential hypertension Comments: Stable on losartan/HCTZ Orders: - CBC auto differential; Future - Comprehensive metabolic panel; Future - CBC auto differential - Comprehensive metabolic panel Pulmonary embolism, other, unspecified chronicity, unspecified whether acute cor pulmonale present (HCC) Comments: Stable on lifelong Eliquis Hypercholesterolemia Comments: Stable on Lipitor Orders: - Lipid panel; Future - Lipid panel Gastroesophageal reflux disease with esophagitis without hemorrhage Other iron deficiency anemia Comments: Unsure of etiology, check lab Orders: - Ferritin; Future - Sedimentation rate, automated; Future - Vitamin B12; Future - Iron and TIBC; Future - Protein, Total and Protein Electrophoresis - Ferritin - Sedimentation rate, automated - Vitamin B12 - Iron and TIBC Diarrhea due to malabsorption Comments: Uncontrolled, reviewed past GI workup including lab and colonoscopy. She desires second opinion. Other orders - omeprazole (PriLOSEC) [address] capsule; Take 1 capsule (40 mg) by mouth daily for 180 doses. Subjective: Patient ID: Cata Ayers is a 74 y.o. female. HPI better controlled type II diabetic with hypertension hyperlipidemia and chronic anticoagulation therapy for history of PE presents for checkup. Glucose levels a few times a month are fair. A1c slightly above goal. No recent infections. Denies change in vision or skin. Ongoing diarrhea is a problem. Had GI workup [address] Underwood with nonspecific colitis. Initially got better with cholestyramine but not tolerable. Would like another opinion for her colitis. Has been on metformin for many years and diarrhea essentially started after her cholecystectomy. Does have more mucus in her stools. No substantial abdominal pain denies melena or blood. Review of Systems no night sweats fevers or chills. No recent antibiotic use. Denies cough or congestion. No exertional chest pain or palpitations. No claudication. Has trace pedal edema chronically. No breakthrough heartburn. No dysphagia. No dysuria or hematuria. No unhealing skin lesions. Rare arthralgias. Allergies Allergen Reactions Kiwi Extract Swelling Mouth and lip swelling Other reaction(s): Swelling Lisinopril Angioedema Other Current Outpatient Medications on File Prior to Visit Medication Sig Dispense Refill atorvastatin (Lipitor) 10 MG tablet Take 1 tablet (10 mg) by mouth daily. 90 tablet 1 dicyclomine (Bentyl) 10 MG capsule Take 10 mg by mouth 2 times daily. Eliquis 2.5 MG tablet TAKE 1 TABLET BY MOUTH 2 TIMES DAILY 60 tablet 3 ferrous sulfate 325 (65 Fe) MG tablet Take 1 tablet (325 mg) by mouth daily (with breakfast). 60 tablet 2 glimepiride (Amaryl) 4 MG tablet TAKE 1 TABLET (4 MG) BY MOUTH 2 TIMES DAILY 180 tablet 1 losartan-hydroCHLOROt hiazide (Hyzaar) 100-12.5 MG tablet Decrease to one half tab q AM metFORMIN (Glucophage) 500 MG tablet Take 2 tablets (1,000 mg) by mouth 2 times daily. 360 tablet 1 [DISCONTINUED] omeprazole (PriLOSEC) [address] capsule Take 1 capsule (40 mg) by mouth daily for 180 doses. 90 capsule 1 [DISCONTINUED] cholestyramine (Questran) 4 g packet MIX AND TAKE 1 PACKET (4 G) BY MOUTH DAILY. (Patient not taking: Reported on 05/25/2024) 90 packet 1 No current facility-administered medications on file prior to visit. Patient Active Problem List Diagnosis History of renal stone Renal cyst Essential hypertension Cystoid macular edema Post-cholecystectomy syndrome B12 deficiency SMILEY-inhibitor cough GERD with esophagitis Lumbar disc disease Type 2 diabetes mellitus (HCC) AVM (arteriovenous malformation) of colon Adrenal adenoma, left Pulmonary emboli (HCC) Right leg DVT (HCC) Angioedema due to angiotensin converting enzyme inhibitor (SMILEY-I) Social History Tobacco Use Smoking status: Never Smokeless tobacco: Never Substance Use Topics Alcohol use: No Past Surgical History: Procedure Laterality Date CATARACT EXTRACTION Bilateral 2013 [facility] COLONOSCOPY 2012 [place] COLONOSCOPY 06/2022 2 ileal AVMs treated per Dr Underwood- odilon f/u Cscope indicated COLONOSCOPY W/ POLYPECTOMY 06/2018 Dr Frost DILATION AND CURETTAGE OF UTERUS EGD (HISTORICAL) 06/2022 Dr. Underwood- Hiatal hernia w/ duodenitis [facility] MENISCECTOMY Right 1980 PARTIAL HYSTERECTOMY 1981 DUB- ovaries remainin (more content not included)... [facility] 36on 04-05-2024 36 Last follow up: 12/03/2023 Next appointment: Visit date not found Allergies Allergen Reactions Kiwi Extract Swelling Mouth and lip swelling Other reaction(s): Swelling Lisinopril Angioedema Other Requested Prescriptions Pending Prescriptions Disp Refills Eliquis 2.5 MG tablet [Pharmacy Med Name: ELIQUIS 2.5 MG TABLET] 60 tablet 3 Sig: TAKE 1 TABLET BY MOUTH 2 TIMES DAILY [facility] 36on 03-14-2024 36 Placed call to patient to discuss provider direction and message about BP readings. Message left a detailed message on voicemail and can return my call if has any questions. Please release message to patient: Reviewed patient's recent blood pressure log. They are acceptable and I have no recommendations for her to change her meds at this time. Recheck in the office in 3 to 4 months [facility] 36 ----- Message from Alpesh Marroquin DO sent at 03/12/2024 11:48 PM EST ----- Reviewed patient's recent blood pressure log. They are acceptable and I have no recommendations for her to change her meds at this time. Recheck in the office in 3 to 4 months [facility] Progress Noteon 03-01-2024 Progress Note [address] [place] [id number] @[email or web address]@ Patient arrived for nurse visit today. Two patient identifiers used to confirm correct patient yes Supervising provider for clinic visit Dr. Marroquin is taking Losartan- hydrochlorothiazide 100-12.5mg for hypertension with excellent compliance and dizziness an nausea side effects regular Shortness of breath no Medication compliance yes Medication Reconciliation yes BP Medication taken prior to visit yes at what time 9:00an B/P Reading taken manual Home Monitoring yes Patient advised if follow up is needed, outreach will occur in 48 hours BP:128/60 HR:60 [facility] Progress Note BP ok, no rx change nec [facility] 36on 02-29-2024 36 Recent Visits Date Type Provider Dept 01/26/24 Office Visit Alpesh Marroquin DO [facility] 10/07/23 Office Visit Alpesh Marroquin DO [facility] 05/21/23 Office Visit Alpesh Marroquin DO [facility] 05/01/23 Office Visit Alpesh Marroquin DO [facility] 04/07/23 Office Visit Alpesh Marroquin DO [facility] Showing recent visits within past 365 days and meeting all other requirements Future Appointments Date Type Provider Dept 05/25/24 Appointment Alpesh Marroquin DO [facility] Showing future appointments within next 90 days and meeting all other requirements Requested Prescriptions Pending Prescriptions Disp Refills glimepiride (Amaryl) 4 MG tablet [Pharmacy Med Name: GLIMEPIRIDE 4 MG TABLET] 180 tablet 1 Sig: TAKE 1 TABLET (4 MG) BY MOUTH 2 TIMES DAILY Provider: Alpesh Marroquin DO Verified pharmacy: yes Verified day(s) supplied: yes Verified refill(s) needed (previous prescription showing no refills in chart): Yes Have you received any controlled medications from any other provider? N/A Overdue for visit: No If yes - patient scheduled? N/A Most recent labs completed in chart? N/A None [facility] 36 .refill Normal [facility] 36on 02-01-2024 36 Transferred to [facility] t notes Normal [facility] 36 Message released to patient as written. Patient's further questions if applicable: Patient is willing to try the supplements, will call if there is any issues. BAR, thank you. Were all questions from office addressed or relayed to the patient from encounter: Yes [facility] 36 Placed call to patient. Unable to reach them by phone to discuss lab results. Left detailed message to return call to discuss results. 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 Patient's hemoglobin is still low and I recommend another trial of iron supplement to increase her Hgt to prevent fatigue. If she consents to take that medicine twice a day and will recheck lab in 3 months. If iron level and hemoglobin still low she might need IV iron with another hematology consult if she cannot tolerate the oral supplements. Remaining chemistries normal. [facility] Office Visiton 01-26-2024 Follow-up visit [id number] Cata Ayers 1950 F Date Provider Department Center 01/26/2024 [id number] MARROQUIN [facility] Family History Problem Relation Age of Onset Rheum arthritis Mother Comments: mid 50s Prostate cancer Father Comments: age 76 Diabetes Sister Comments: insulin, CHF , 2022 age 78 Diabetes Sister Comments: oral rx, alive age 74 Accidental Brother Comments: MVA 40 Prostate cancer Brother Arrhythmia Brother Comments: PVCs Other Brother Comments: PAD, smoker- ischemic bowel w/ resection Heart failure Brother Diabetes Brother Comments: insulin, age 74 in 04/08 Diabetes Maternal Grandmother Diabetes Maternal Grandfather Diabetes Paternal Grandmother Diabetes Paternal Grandfather Family Status - Relation Status Age at Mother Father Sister Sister Alive Brother Brother Alive Brother Alive Brother Maternal Grandmother Maternal Grandfather Paternal Grandmother Paternal Grandfather Level of Service:34874 [place] OFFICE/OUTPATIENT ESTABLISHED MOD MDM 30 MIN Reason for Visit and Comments: Follow-up [086270] - Med check Normal [facility] Progress Noteon 01-26-2024 Progress Note [facility] [address] [facility] [address] [facility] [address] Visit type: Established Patient Reason for Visit: Follow-up (Med check) Assessment / Plan: Cata was seen today for follow-up. Diagnoses and all orders for this visit: Type 2 diabetes mellitus without complication, without long-term current use of insulin (CMS/HCC) ([facility]) (Primary) Comments: Stable, continue metformin and glimepiride Orders: - CBC auto differential; Future - Comprehensive metabolic panel; Future - Hemoglobin A1c; Future - CBC auto differential - Comprehensive metabolic panel - Hemoglobin A1c Essential hypertension Comments: I can go, restart one half losartan tablet, BP check 4 weeks, stop amlodipine Pulmonary embolism, other, unspecified chronicity, unspecified whether acute cor pulmonale present ([facility]) Comments: Stable, continue Eliquis indefinitely Hypercholesterolemia Comments: Stable, continue Lipitor Post-cholecystectomy syndrome Comments: Stable, continue Questran Other orders - Flu vaccine (FLUAD), trivalent, adjuvanted, preservative-free (ages 65+) - losartan-hydroCHLOROt hiazide (Hyzaar) 100-12.5 MG tablet; Decrease to one half tab q AM Subjective: Patient ID: Cata Ayers is a 73 y.o. female. HPI fairly well-controlled type II diabetic presents for checkup. Of note was getting lightheaded with amlodipine and losartan she stopped those a week or 2 ago. Feeling better. Glucose levels are stable. Weight is stable. Trying to follow better eating habits. No change in vision or skin. 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 Feels lifelong Eliquis is necessary at lower dosages. No recurrent right calf pain or swelling. No shortness of breath with exertion, chest pain or palpitations. Review of Systems no change in vision. She denies recent sore throat cough phlegm or fever. No pleurisy. No heartburn on meds. Bowels are intermittently loose. Reviewed past upper and lower endoscopy from last year. No complications of melena or blood. Questran and dicyclomine are somewhat helpful for intermittent loose stools. No further endoscopy planned. Was slightly anemic last fall and saw Dr. Serrano. Did respond somewhat to iron. Overdue for some lab work. Denies substantial shortness of breath or fatigue. Allergies Allergen Reactions Kiwi Extract Swelling Mouth and lip swelling Other reaction(s): Swelling Lisinopril Angioedema Other Current Outpatient Medications on File Prior to Visit Medication Sig Dispense Refill apixaban (Eliquis) 2.5 MG tablet Take 1 tablet (2.5 mg) by mouth 2 times daily. 60 tablet 3 atorvastatin (Lipitor) 10 MG tablet Take 1 tablet (10 mg) by mouth daily. 90 tablet 1 cholestyramine (Questran) 4 g packet MIX AND TAKE 1 PACKET (4 G) BY MOUTH DAILY. 90 packet 1 dicyclomine (Bentyl) 10 MG capsule Take 1 capsule (10 mg) by mouth 2 times daily for 360 doses. 180 capsule 1 glimepiride (Amaryl) 4 MG tablet Take 1 tablet (4 mg) by mouth 2 times daily. 180 tablet 1 metFORMIN (Glucophage) 500 MG tablet Take 2 tablets (1,000 mg) by mouth 2 times daily. 360 tablet 1 omeprazole (PriLOSEC) [address] capsule Take 1 capsule (40 mg) by mouth daily for 180 doses. 90 capsule 1 [DISCONTINUED] amLODIPine (Norvasc) 10 MG tablet Take 1 tablet (10 mg) by mouth daily for 180 doses. (Patient not taking: Reported on 01/26/2024) 90 tablet 1 [DISCONTINUED] losartan-hydroCHLOROt hiazide (Hyzaar) 100-12.5 MG tablet Take 1 tablet by mouth daily. (Patient not taking: Reported on 01/26/2024) 90 tablet 1 No current facility-administered medications on file prior to visit. Patient Active Problem List Diagnosis History of renal stone Renal cyst Essential hypertension Cystoid macular edema Post-cholecystectomy syndrome B12 deficiency SMILEY-inhibitor cough GERD with esophagitis Lumbar disc disease Type 2 diabetes mellitus (HCC) AVM (arteriovenous malformation) of colon Adrenal adenoma, left Pulmonary emboli (HCC) Right leg DVT (HCC) Angioedema due to angiotensin converting enzyme inhibitor (SMILEY-I) Social History Tobacco Use Smoking status: Never Smokeless tobacco: Never Substance Use Topics Alcohol use: No Past Surgical History: Procedure Laterality Date CATARACT EXTRACTION Bilateral 2014 [facility] COLONOSCOPY 2012 [facility] COLONOSCOPY 06/2022 2 ileal AVMs treated per Dr Underwood- odilon f/u Cscope indicated COLONOSCOPY W/ POLYPECTOMY 06/2018 Dr Frost DILATION AND CURETTAGE OF UTERUS EGD (HISTORICAL) 06/2022 Dr. Underwood- Hiatal hernia w/ duodenitis LAP,[facility] 2006 MENISCECTOMY Right 1980 PARTIAL HYSTERECTOMY 1981 DUB- ovaries remaining UPPER GASTROINTESTINAL ENDOSCOPY 2012 neg per [facility] Family History Problem Relation Name Age of Onset Rheum arthritis Mother mid 50s Prostate c (more content not included)... [facility] Office Visiton 12-03-2023 Follow-up visit [id number] Cata Ayers 1950 F Date Provider Department Center 12/03/2023 [facility] Family History Problem Relation Age of Onset Rheum arthritis Mother Comments: mid 50s Prostate cancer Father Comments: age 76 Diabetes Sister Comments: insulin, CHF , 2022 age 78 Diabetes Sister Comments: oral rx, alive age 74 Accidental Brother Comments: MVA 40 Prostate cancer Brother Arrhythmia Brother Comments: PVCs Other Brother Comments: PAD, smoker- ischemic bowel w/ resection Heart failure Brother Diabetes Brother Comments: insulin, age 74 in 04/08 Diabetes Maternal Grandmother Diabetes Maternal Grandfather Diabetes Paternal Grandmother Diabetes Paternal Grandfather Family Status - Relation Status Age at Mother Father Sister Sister Alive Brother Brother Alive Brother Alive Brother Maternal Grandmother Maternal Grandfather Paternal Grandmother Paternal Grandfather Level of Service:11640 [place] OFFICE/OUTPATIENT ESTABLISHED MOD MDM 30 MIN Reason for Visit and Comments: 6 Month Follow-up [671] [facility] PATINSon 12-03-2023 PATINS YOUR APPOINTMENT TODAY WAS WITH THE [facility], COPD CLINIC, PULMONARY AND SLEEP MEDICINE OFFICE. PLEASE CALL OUR OFFICE AT [phone] IF YOU HAVE NOT RECEIVED YOUR TEST RESULTS 7 DAYS AFTER TESTING IS COMPLETED. PLEASE REMEMBER TO REQUEST REFILLS AT YOUR OFFICE VISITS. PHONE/FAX REQUESTS REQUIRE 48-72 HOURS FOR RESPONSE. A FRIENDLY REMINDER COPAYS ARE DUE AT TIME OF SERVICE. THANK YOU. Our Patients Are Important! We want to improve and you can help. After your visit we want you to feel: Listened to, Respected and have your health care explained. You may receive a survey asking you about your visit. Please complete the survey. We will use your feedback to make improvements. COVID-19 VACCINATION INFORMATION: . [phone] [email or web address] S/VACCINE [facility] Central Scheduling [phone] [facility] Sleep Scheduling [phone] Normal [facility] Progress Noteon 12-03-2023 Progress Note [facility] [address] [address] FOLLOW UP VISIT-PULMONARY 12/03/2023 FOLLOW UP FOR: PE ASSESSMENT AND PLAN: 1. Pulmonary embolism, other, unspecified chronicity, unspecified whether acute cor pulmonale present (HCC) Following up for PE, doing well today. Echo reassuring A study, which followed patients after a first episode of acute PE, found that the recurrence rate after discontinuation of treatment was 4.5% per year after PE occurring in the absence of known cancer, known thrombophilia, or any transient risk factor. - Detailed discussion regarding risks and benefits of anticoagulation. According to ACCP guidelines, recommend extended phase anticoagulation for single, unprovoked VTE episode. She is agreeable. - switch Eliquis to half dose, prescribed Eliquis 2.5 mg BID. History of Present Illness Cata Ayers is a 73 y.o. 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 Before that she thinks she had a viral URI and was treated with antibiotics by her PCP. Denies chest pain or palpitations. No syncope. At times lightheaded. Overall low risk PE not requiring supplemental oxygen. Negative troponin and BNP. Pesi score largely driven by age. PE overall low risk. On Eliquis. Setting: unprovoked. Symptoms: No significant ADAMSON. Cancer screening up to date CTA Chest 05/01/2023: 1. Bilateral pulmonary emboli. The RV/LV ratio is 0.7. This is considered normal*. 2. No consolidation or pleural effusion. 3.. Dilated main pulmonary artery; correlate for possible pulmonary hypertension. Echo 11/17/2023 (Images were personally reviewed and independently interpreted by me.) Left Ventricle: Left ventricle size is normal. Mildly increased wall thickness. Normal left ventricular systolic function. EF by 2D Simpsons Biplane is 58%. Global longitudinal strain is normal with a value of -17.0%. Normal wall motion. Right Ventricle: Right ventricle size is normal. Normal systolic function. Tricuspid Valve: Unable to assess RVSP due to insignificant tricuspid regurgitation. No significant valvular abnormalities. US DVT Acute non-occlusive deep vein thrombosis in the right posterior tibial vein. 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 Underwood- no f/u Cscope indicated B12 deficiency 02/2021 Breast cancer screening 09/2020 prefers every other year. Chronic diarrhea 2022 n/s colitis per Cscope Cystoid macular edema 2018 [facility], Optho Elbow fracture, left 1954 Essential hypertension 2011 GERD with esophagitis 2012 EGD 07/[address] Underwood- HH w/ duodenitis H/O colonoscopy 06/2022 Dr Underwood- ileal AVMs cauterized- no need for rech History of renal stone 2005 Iron deficiency anemia 2022 Dr. Serrano consult- resolved Left rotator cuff tear 2012 Lumbar disc disease 2006 MRI- right sciatica Post-cholecystectomy syndrome 2019 Pulmonary emboli (HCC) 04/2023 Bilat, RLE DVT- post tibial Renal cyst [address] 04/10 Right leg DVT (HCC) 04/2023 post tibial w/ Bilat PE Type 2 diabetes mellitus (HCC) 2007 off rx for a few years, restarted 11/02 -[facility] Past Surgical History Past Surgical History: Procedure Laterality Date CATARACT EXTRACTION Bilateral 2013 [facility] COLONOSCOPY 06/2018 Dr Frost- few polyps- due 2023 COLONOSCOPY 2012 [place] COLONOSCOPY 06/2022 2 ileal AVMs treated per Dr Asaf donald f/u Cscope indicated DILATION AND CURETTAGE OF UTERUS EGD (HISTORICAL) 06/2022 Dr. Underwood- Hiatal hernia w/ duodenitis LAP,CHOLECYSTECTOMY (HISTORICAL) 2018 [place] LITHOTRIPSY 2006 MENISCECTOMY Right 1980 PARTIAL HYSTERECTOMY 1982 DUB- ovaries remaining UPPER GASTROINTESTINAL ENDOSCOPY 2012 neg per [facility] Allergies Allergies Allergen Reactions Kiwi Extract Swelling Mouth and lip swelling Other reaction(s): Swelling Lisinopril Angioedema Other Medications Outpatient Encounter Medications as of 12/03/2023 Medication Sig Dispense Refill amLODIPine (Norvasc) 10 MG tablet Take 1 tablet (10 mg) by mouth daily for 180 doses. 90 tablet 1 apixaban (Eliquis) 5 MG tablet Take 1 tablet (5 mg) by mouth 2 times daily. 60 tablet 5 atorvastatin (Lipitor) 10 MG tablet Take 1 tablet (10 mg) by mouth daily. 90 tablet 1 cholestyramine (Questran) 4 g packet MIX AND TAKE 1 PACKET (4 G) BY MOUTH DAILY. 90 packet 1 dicyclomine (Bentyl) 10 MG capsule Take 1 capsule (10 mg) by mouth 2 times daily for 360 doses. 180 capsule 1 glimepiride (Amaryl) 4 MG tablet Take 1 tablet (4 mg) by mouth 2 times daily. 180 tablet 1 (more content not included)... Normal [employer] [facility] US Heart TransthoracicOrdere d By: Sebastián Quezada on 11-17-2023 Ao Root Index 1.45 cm/m2 [employer] Phone: Aortic Root 2.7 cm [employer] Phone: Aortic Sinus Valsalva 2.7 cm [facility] [employer] Phone: Aortic Sinus Valsalva Index 1.45 cm/m2 [employer] Phone: Ascending Aorta 3.6 cm [employer] Phone: Ascending Aorta Index 1.94 cm/m2 [employer] Phone: AV Area by Peak Velocity 2.4 cm2 [employer] Phone: AV Area by VTI 2.5 cm2 [employer] Phone: AV Mean Gradient 6 mmHg [employer] Phone: AV Mean Velocity 1.2 m/s [facility] [employer] Phone: [phone] AV Peak Gradient 12 mmHg [facility] [employer] Phone: [phone] AV Peak Velocity 1.7 m/s [facility] [employer] Phone: [phone] AV Velocity Ratio 0.76 [facility] [employer] Phone: [phone] AV VTI 32.3 cm [facility] [employer] Work Phone: [phone] MICHELLE/BSA Peak Velocity 1.3 cm2/m2 [employer] wi [employer] Phone: [phone] MICHELLE/BSA VTI 1.3 cm2/m2 [facility] [employer] Phone: [phone] E/E' Lateral 7.00 [facility] [employer] Phone: [phone] E/E' Ratio (Averaged) 7.44 Sum wi [employer] Phone: [phone] E/E' Septal 7.88 [facility] [employer] Phone: [phone] EF BP 58 % 55 - 100 % [facility] [employer] Work Phone: [phone] Fractional Shortening 2D 30 % 28 - 44 % [facility] [employer] Phone: [phone] Global Longitudinal Strain -17.0 % [facility] [employer] Phone: [phone] Interpretation and review of laboratory results Abnormal [facility] [employer] Phone: [phone] IVC Diameter 1.4 cm [facility] [employer] Phone: [phone] IVSd 1.2 cm Abnormal 0.6 - 0.9 cm [facility] [employer] Phone: [phone] LA Diameter 3.8 cm [facility] [employer] Phone: [phone] LA Size Index 2.04 cm/m2 [facility] [employer] Phone: [phone] LA Volume 2C 47 mL 22 - 52 mL [facility] [employer] Phone: LA Volume 4C 39 mL 22 - 52 mL [facility] [employer] Work Phone: LA Volume A/L 45 mL [facility] [employer] Work Phone: [phone] LA Volume BP 43 mL 22 - 52 mL [facility] [employer] Work Phone: [phone] LA Volume Index 2C 25 mL/m2 16 - 34 mL/m2 [facility] [employer] Work Phone: LA Volume Index 4C 21 mL/m2 16 - 34 mL/m2 [facility] Work Phone: [phone] LA Volume Index A/L 24 mL/m2 16 - 34 mL/m2 [facility] [employer] Work Phone: LA Volume Index BP 23 ml/m2 16 - 34 ml/m2 [facility] [employer] Work Phone: LA/AO Root Ratio 1.41 [facility] [employer] Work Phone: [phone] LV E' Lateral Velocity 9 cm/s [facility] Work Phone: [phone] LV E' Septal Velocity 8 cm/s [facility] Work Phone: LV Ejection Fraction A2C 56 % [facility] [employer] Work Phone: LV Ejection Fraction A4C 58 % [facility] [employer] Work Phone: LV Mass 2D 124.8 g 67 - 162 g [facility] [employer] Work Phone: LV Mass 2D Index 67.1 g/m2 43 - 95 g/m2 [facility] [employer] Work Phone: LV RWT Ratio 0.73 [facility] [employer] Work Phone: LVIDd 3.3 cm Abnormal 3.9 - 5.3 cm [facility] [employer] Work Phone: LVIDd Index 1.77 cm/m2 [facility] [employer] Work Phone: LVIDs 2.3 cm [facility] [employer] Work Phone: [phone] LVIDs Index 1.24 cm/m2 [facility] [employer] Work Phone: LVOT Area 3.1 cm2 [facility] [employer] Work Phone: LVOT Cardiac Output 5.7 liter/mi nut e [facility] [employer] Work Phone: LVOT Diameter 2.0 cm [facility] [employer] Work Phone: LVOT Mean Gradient 4 mmHg [facility] [employer] Work Phone: [phone] LVOT Peak Gradient 7 mmHg [facility] [employer] Work Phone: LVOT Peak Velocity 1.3 m/s [facility] Phone: [phone] LVOT Stroke Volume Index 42.4 mL/m2 [facility] [employer] Work Phone: [phone] LVOT SV 78.[address] [facility] [employer] Work Phone: [phone] LVOT VTI 25.[address] [facility] [facility] [employer] Work Phone: [phone] LVOT:AV VTI Index 0.[address] [facility] [facility] [facility] Work Phone: [phone] LVPWd 1.2 cm Abnormal 0.6 - 0.[address] [facility] [facility] Phone: [phone] MV A Velocity 1.07 m/s [facility] Phone: [phone] MV E Velocity 0.63 m/s [facility] [employer] Work Phone: [phone] MV E Wave Deceleration Time 298.[address] [facility] [facility] [facility] Work Phone: [phone] MV E/A 0.[address] [facility] Work Phone: [phone] Pulm Vein Peak D Velocity 0.4 m/[facility] Phone: [phone] Pulm Vein Peak S Velocity 0.5 m/[facility] Phone: [phone] Pulm Vein S/D 1.3 [facility] [employer] Work Phone: [phone] PV Max Velocity 1.1 m/[facility] Phone: [phone] PV Mean Gradient [address] [facility] [employer] Work Phone: [phone] PV Mean Velocity 0.7 m/s [facility] [employer] Work Phone: [phone] PV Peak Gradient [address] [facility] Work Phone: [phone] RA Area 4C 25.9 mL [facility] [facility] Work Phone: [phone] RA Area 4C 25.6 mL [facility] [employer] Work Phone: [phone] RV Basal Dimension 2.[address] [facility] [employer] Work Phone: [phone] RV Free Wall Peak S' 15 cm/s [employer] Work Phone: [phone] RV Mid Dimension 2.4 cm [facility] [employer] Work Phone: TAPSE 1.6 cm Abnormal 1.7 cm [employer] Work Phone: TAPSE 2.2 cm 1.7 cm [employer] Phone: TR Max Velocity 2.07 m/s [employer] Phone: TR Peak Gradient 17 mmHg [employer] Phone: [employer] Phone: Heart Transthoracicon Left Ventricle: Left ventricle size is normal. Mildly increased wall thickness. Normal left ventricular systolic function. EF by 2D Simpsons Biplane is 58%. Global longitudinal strain is normal with a value of -17.0%. Normal wall motion. Right Ventricle: Right ventricle size is normal. Normal systolic function. Tricuspid Valve: Unable to assess RVSP due to insignificant tricuspid regurgitation. No significant valvular abnormalities. Left Ventricle Left ventricle size is normal. Mildly increased wall thickness. Normal left ventricular systolic function. EF by 2D Simpsons Biplane is 58%. Global longitudinal strain is normal with a value of -17.0%. Normal wall motion. Normal diastolic function. Right Ventricle Right ventricle size is normal. Normal systolic function. Left Atrium Left atrium size is normal. Right Atrium Right atrium size is normal. IVC/SVC IVC diameter is normal and decreases greater than 50% during inspiration; therefore the estimated right atrial pressure is normal (~3 mmHg). Mitral Valve Valve structure is normal. No regurgitation. No stenosis noted. Tricuspid Valve Valve structure is normal. Trace regurgitation. Unable to assess RVSP due to insignificant tricuspid regurgitation. Aortic Valve Trileaflet. No cusp thickening. No cusp calcification. No regurgitation. No stenosis. Pulmonic Valve The pulmonic valve was not well visualized. Trace regurgitation. Ascending Aorta Normal sized sinuses of Valsalva and ascending aorta. Sinuses of Valsalva diameter is 2.7 cm. Ao ascending diameter is 3.6 cm. Pericardium No pericardial effusion. Septum No interatrial shunt visualized on color Doppler. Study Details Image quality: fair. Additional technique includes myocardial strain. Heart rate: 64 bpm. Blood pressure: 149/63 mmHg. The underlying ECG rhythm was sinus rhythm. No contrast was given. Echo Additional Conclusions No significant valvular abnormalities. CV CPACS CBC W Auto Differential pane l (Bld)on 05-02-2023 Basophils (Bld) [#/Vol] 0.1 10*3/uL 0.0 - 0.2 10*3/uL [facility] Basophils/100 WBC (Bld) 0.6 % 0.0 - 2.0 % [facility] Eosinophils (Bld) [#/Vol] 0.3 10*3/uL 0. 0 - 0.5 10*3/uL [facility] Eosinophils/100 WBC (Bld) 3.5 % 0.0 - 6.0 % [facility] Erythrocyte distribution width (RBC) [Ratio] 13.5 % 11.5 - 15.0 % [facility] Hematocrit (Bld) [Volume fraction] 29.9 % Low 35.0 - 47.0 % [facility] Hemoglobin (Bld) [Mass/Vol] 9.6 g/dL Low 11.7 - 16.0 g/dL [facility] Immature granulocytes (Bld) [#/Vol] 0.0 10*3/uL NINF - 0.1 10*3/uL [facility] Immature granulocytes/100 WBC (Bld) 0.3 % 0.0 - 2.0 % [facility] Interpretation and review of laboratory results Abnormal [facility] Lymphocytes (Bld) [#/Vol] 2.8 10*3/uL 1. 0 - 4.3 10*3/uL [facility] Lymphocytes/100 WBC (Bld) 36.6 % 15 .0 - 45.0 % [facility] MCH (RBC) [Entitic mass] 28.4 pg 26. 0 - 34.0 pg [facility] MCHC (RBC) [Mass/Vol] 32.1 % 30.5 - 36.0 % [facility] MCV (RBC) [Entitic vol] 88.5 fL 77.0 - 99.0 fL [facility] Monocytes (Bld) [#/Vol] 0.5 10*3/uL 0.0 - 0.9 10*3/uL [facility] Monocytes/100 WBC (Bld) 6.4 % 5.0 - 13.0 % [facility] Neutrophils (Bld) [#/Vol] 4.1 10*3/uL 1. 8 - 7.5 10*3/uL [facility] Neutrophils/100 WBC (Bld) 52.6 % 38 .0 - 82.0 % [facility] Nucleated RBC/100 WBC (Bld) [Ratio] 0.0 % [facility] Platelet mean volume (Bld) [Entitic vol] 8.8 fL Low 9.0 - 12.7 fL [facility] Platelets (Bld) [#/Vol] 351 10*3/uL 140 - 440 10*3/uL [facility] RBC (Bld) [#/Vol] 3.38 10*6/uL Low 3.80 - 5.2 0 10*6/uL [facility] WBC (Bld) [#/Vol] 7.8 10*3/uL 3.6 - 10.7 10*3/uL [facility] Comprehensive metabolic 1998 panelon 05-02-2023 Albumin [Mass/Vol] 3.5 g/dL 3.5 - 5.0 g/dL [facility] ALP [Catalytic activity/Vol] 45 U/L 38 - 126 U/L [facility] ALT [Catalytic activity/Vol] 27 U/L 0 - 34 U/L [facility] Anion gap [Moles/Vol] 7 mmol/L 3 - 13 mmol/L [facility] AST [Catalytic activity/Vol] 33 U/L 15 - 46 U/L [facility] Bilirubin [Mass/Vol] 0.3 mg/dL 0.2 - 1 .3 mg/dL [facility] Calcium [Mass/Vol] 8.4 mg/dL 8.4 - 10. 4 mg/dL [facility] Chloride [Moles/Vol] 102 mmol/L 98 - 10 7 mmol/L [facility] CO2 [Moles/Vol] 27 mmol/L 22 - 30 mmol/L [facility] Creatinine [Mass/Vol] 1.03 mg/dL 0.52 - 1.04 mg/dL [facility] GFR/1.73 sq M.predicted MDRD (S/P/Bld) [Vol rate/Area] 56.8 mL/min/{1.73_m2} Low - PINF [facility] Comment on above: Calculation based on the Chronic Kidney Disease Epidemiology Collaboration (CKD-EPI) equation refit without adjustment for race Glucose [Mass/Vol] 190 mg/dL High 70 - 100 mg/dL [facility] Interpretation and review of laboratory results Abnormal [facility] Potassium [Moles/Vol] 3.9 mmol/L 3.5 - 5.1 mmol/L [facility] [employer] Protein [Mass/Vol] 6.5 g/dL 6.3 - 8.2 g/dL [facility] [employer] Sodium [Moles/Vol] 136 mmol/L 135 - 145 mmol/L [facility] [employer] Urea nitrogen [Mass/Vol] 14 mg/dL 7 - 17 mg/dL [facility] Laboratory - Chemistry and C hemistry - challengeon 05-02-2023 Glucose [Mass/Vol] 222 mg/dL High 70 - 100 mg/dL [facility] [employer] Glucose [Mass/Vol] 158 mg/dL High 70 - 100 mg/dL [facility] [employer] No Panel Informationon 05-01 Interpretation and review of laboratory results Abnormal [facility] [employer] [facility]: [facility], [address] [place] [id number] CLIA ID: [id number] [facility] Interpretation and review of laboratory results Abnormal [facility] Performed by: [facility], [address] [facility] [address] CLIA ID: [id number] [facility] Radiology Study observation (narrative) [facility] Radiology Study observation (narrative) [facility] [employer] US Heart TransthoracicOrdere d By: River Styles on 05-02-2023 Ao Root Index 1.51 cm/m2 [facility] [employer] Work Phone: [phone] Aortic Root 2.8 cm [facility] [employer] Phone: Aortic Sinus Valsalva 2.8 cm [facility] [employer] Work Phone: [phone] Aortic Sinus Valsalva Index 1.51 cm/m2 [facility] [employer] Work Phone: Ascending Aorta 3.6 cm [facility] [employer] Work Phone: Ascending Aorta Index 1.94 cm/m2 [facility] [employer] Work Phone: [phone] AV Area by Peak Velocity 2.1 cm2 [facility] [employer] Work Phone: [phone] AV Area by VTI 2.4 cm2 [facility] [employer] Phone: [phone] AV Mean Gradient 6 mmHg [facility] [employer] Work Phone: [phone] AV Mean Velocity 1.2 m/s [facility] [employer] Work Phone: AV Peak Gradient 12 mmHg [facility] [employer] Work Phone: AV Peak Velocity 1.7 m/s [facility] [employer] Work Phone: AV Velocity Ratio 0.76 [facility] [employer] Work Phone: AV VTI 32.4 cm [facility] [employer] Work Phone: MICHELLE/BSA Peak Velocity 1.1 cm2/m2 [facility] [employer] Work Phone: MICHELLE/BSA VTI 1.3 cm2/m2 [facility] [employer] Work Phone: E/E' Lateral 6.80 [facility] [employer] Work Phone: E/E' Ratio (Averaged) 7.18 [facility] [employer] Work Phone: E/E' Septal 7.56 [facility] [employer] Phone: EF BP 61 % 55 - 100 % [facility] [employer] Work Phone: [phone] Interpretation and review of laboratory results Abnormal [facility] [employer] Work Phone: IVC Diameter 1.2 cm [facility] [employer] Work Phone: LA Volume 2C 50 mL 22 - 52 mL [facility] [employer] Work Phone: LA Volume 4C 42 mL 22 - 52 mL [facility] [employer] Phone: LA Volume A/L 52 mL [facility] [employer] Phone: LA Volume BP 48 mL 22 - 52 mL [facility] [employer] Work Phone: LA Volume Index 2C 27 mL/m2 16 - 34 mL/m2 [facility] [employer] Work Phone: LA Volume Index 4C 23 mL/m2 16 - 34 mL/m2 [facility] [employer] Work Phone: LA Volume Index A/L 28 mL/m2 16 - 34 mL/m2 [facility] [employer] Work Phone: LA Volume Index BP 26 ml/m2 16 - 34 ml/m2 [facility] [employer] Work Phone: LV E' Lateral Velocity 10 cm/s [facility] [employer] Work Phone: LV E' Septal Velocity 9 cm/s [facility] [employer] Work Phone: LV EDV A2C 49 mL [facility] [employer] Work Phone: LV EDV A4C 57 mL [facility] [employer] Work Phone: LV EDV BP 54 mL Abnormal 56 - 104 mL [facility] [employer] Work Phone: LV EDV Index A2C 26 mL/m2 [facility] [employer] Work Phone: LV EDV Index A4C 31 mL/m2 [facility] [employer] Work Phone: LV EDV Index BP 29 mL/m2 [facility] [employer] Work Phone: LV Ejection Fraction A2C 60 % [facility] [employer] Work Phone: LV Ejection Fraction A4C 62 % [facility] [employer] Work Phone: LV ESV A2C 20 mL [facility] [employer] Work Phone: LV ESV A4C 22 mL [facility] [employer] Work Phone: LV ESV BP 21 mL 19 - 49 mL [facility] [employer] Work Phone: LV ESV Index A2C 11 mL/m2 [facility] [employer] Work Phone: LV ESV Index A4C 12 mL/m2 [facility] [employer] Work Phone: LV ESV Index BP 11 mL/m2 [facility] [employer] Work Phone: LVOT Area 2.8 cm2 [facility] [employer] Work Phone: LVOT Cardiac Output 5.6 liter/mi nut e [facility] [employer] Work Phone: LVOT Diameter 1.9 cm [facility] [employer] Work Phone: LVOT Mean Gradient 4 mmHg [facility] [employer] Work Phone: LVOT Peak Gradient 6 mmHg [facility] [employer] Work Phone: LVOT Peak Velocity 1.3 m/s [facility] [employer] Work Phone: LVOT Stroke Volume Index 39.6 mL/m2 [facility] [employer] Work Phone: LVOT SV 73.7 ml [employer] Phone: LVOT VTI 26.0 cm [employer] Phone: LVOT:AV VTI Index 0.80 [employer] Phone: MV A Velocity 1.04 m/s [employer] Phone: MV E Velocity 0.68 m/s [employer] Phone: MV E Wave Deceleration Time 299.2 ms [employer] Phone: MV E/A 0.65 [employer] Phone: RA Area 4C 37.1 mL [employer] Phone: RA Area 4C 35.5 mL [employer] Phone: RV Basal Dimension 3.5 cm [employer] Phone: RV Free Wall Peak S' 14 cm/s [facility] [employer] Phone: [phone] RV Mid Dimension 3.5 cm [employer] Phone: TAPSE 1.4 cm Abnormal 1.7 cm [employer] Phone: [employer] Phone: US Heart Transthoracicon Left Ventricle: Left ventricle size is normal. Normal wall thickness. Normal left ventricular systolic function. EF by 2D Simpsons Biplane is 61%. Normal wall motion. Normal diastolic function. Right Ventricle: Right ventricle is mildly dilated. Low normal systolic function. Tricuspid Valve: Unable to assess RVSP due to insignificant tricuspid regurgitation. Aorta: Normal sized sinuses of Valsalva. Mildly dilated ascending aorta. Ao ascending diameter is 3.6 cm. Pericardium: Evidence of prominent epicardial fat. No pericardial effusion. IVC/SVC: IVC diameter is normal and decreases greater than 50% during inspiration; therefore the estimated right atrial pressure is normal (~3 mmHg). No significant valvular abnormalities. Technically difficult study. Left Ventricle Left ventricle size is normal. Normal wall thickness. Normal left ventricular systolic function. EF by 2D Simpsons Biplane is 61%. Normal wall motion. Normal diastolic function. Right Ventricle Right ventricle is mildly dilated. Low normal systolic function. Left Atrium Left atrium size is normal. Right Atrium Right atrium size is normal. IVC/SVC IVC diameter is normal and decreases greater than 50% during inspiration; therefore the estimated right atrial pressure is normal (~3 mmHg). Mitral Valve Valve structure is normal. No regurgitation. No stenosis noted. Tricuspid Valve Valve structure is normal. Trace regurgitation. Unable to assess RVSP due to insignificant tricuspid regurgitation. Aortic Valve Trileaflet. Cusp sclerosis. No regurgitation. No stenosis. Pulmonic Valve Valve structure is normal. Trace regurgitation. Ascending Aorta Normal sized sinuses of Valsalva. Mildly dilated ascending aorta. Ao ascending diameter is 3.6 cm. Pericardium Evidence of prominent epicardial fat. No pericardial effusion. Septum No interatrial shunt visualized on color Doppler. Study Details Image quality: adequate. Blood pressure: 154/66 mmHg. No contrast was given. Echo Additional Conclusions No significant valvular abnormalities.Robbie adler difficult study. CV CPACS Basic metabolic 1998 panelon 05-01-2023 Anion gap [Moles/Vol] 13 mmol/L 3 - 13 mmol/L [facility] Calcium [Mass/Vol] 9.3 mg/dL 8.4 - 10. 4 mg/dL [facility] Chloride [Moles/Vol] 102 mmol/L 98 - 10 7 mmol/L [facility] CO2 [Moles/Vol] 26 mmol/L 22 - 30 mmol/L [facility] Creatinine [Mass/Vol] 1.05 mg/dL High 0.52 - 1.04 mg/dL [facility] GFR/1.73 sq M.predicted MDRD (S/P/Bld) [Vol rate/Area] 55.5 mL/min/{1.73_m2} Low - PINF [facility] Comment on above: Calculation based on the Chronic Kidney Disease Epidemiology Collaboration (CKD-EPI) equation refit without adjustment for race Glucose [Mass/Vol] 184 mg/dL High 70 - 100 mg/dL [facility] Interpretation and review of laboratory results Abnormal [facility] Potassium [Moles/Vol] 4.3 mmol/L 3.5 - 5.1 mmol/L [facility] Sodium [Moles/Vol] 140 mmol/L 135 - 145 mmol/L [facility] Urea nitrogen [Mass/Vol] 13 mg/dL 7 - 17 mg/dL [facility] CBC W Auto Differential pane l (Bld)Ordered By: Lianna Elliott on 05-01-2023 Basophils (Bld) [#/Vol] 0.0 10*3/uL 0.0 - 0.2 10*3/uL [facility] Basophils/100 WBC (Bld) 0.4 % 0.0 - 2.0 % [facility] Eosinophils (Bld) [#/Vol] 0.3 10*3/uL 0. 0 - 0.5 10*3/uL [facility] Eosinophils/100 WBC (Bld) 2.6 % 0.0 - 6.0 % [facility] Erythrocyte distribution width (RBC) [Ratio] 13.4 % 11.5 - 15.0 % [facility] Hematocrit (Bld) [Volume fraction] 35.5 % 35.0 - 47.0 % [facility] Hemoglobin (Bld) [Mass/Vol] 11.3 g/dL Low 11.7 - 16.0 g/dL [facility] Immature granulocytes (Bld) [#/Vol] 0.0 10*3/uL NINF - 0.1 10*3/uL [facility] Immature granulocytes/100 WBC (Bld) 0.4 % 0.0 - 2.0 % [facility] Interpretation and review of laboratory results Abnormal [facility] Lymphocytes (Bld) [#/Vol] 2.5 10*3/uL 1. 0 - 4.3 10*3/uL [facility] Lymphocytes/100 WBC (Bld) 24.0 % 15 .0 - 45.0 % [facility] MCH (RBC) [Entitic mass] 28.3 pg 26. 0 - 34.0 pg [facility] MCHC (RBC) [Mass/Vol] 31.8 % 30.5 - 36.0 % [facility] MCV (RBC) [Entitic vol] 89.0 fL 77.0 - 99.0 fL [facility] Monocytes (Bld) [#/Vol] 0.6 10*3/uL 0.0 - 0.9 10*3/uL [facility] Monocytes/100 WBC (Bld) 6.0 % 5.0 - 13.0 % [facility] Neutrophils (Bld) [#/Vol] 7.0 10*3/uL 1. 8 - 7.5 10*3/uL [facility] Neutrophils/100 WBC (Bld) 66.6 % 38 .0 - 82.0 % [facility] [employer] Nucleated RBC/100 WBC (Bld) [Ratio] 0.0 % [facility] [employer] Platelet mean volume (Bld) [Entitic vol] 9.2 fL 9.0 - 12.7 fL [facility] [employer] Comment on above: MPV is a calculated measurement using platelet volume ratio Platelets (Bld) [#/Vol] 384 10*3/uL 140 - 440 10*3/uL [facility] [employer] RBC (Bld) [#/Vol] 3.99 10*6/uL 3.80 - 5.2 0 10*6/uL [facility] [employer] WBC (Bld) [#/Vol] 10.4 10*3/uL 3.6 - 10.7 10*3/uL [facility] CTA Chest vessels Karly deutsch ontrast Nicole 05-01-2023 1. Bilateral pulmonary emboli. The RV/LV ratio is 0.7. This is considered normal*. 2. No consolidation or pleural effusion. 3.. Dilated main pulmonary artery; correlate for possible pulmonary hypertension. 4. Small indeterminate left adrenal nodule. Follow-up as recommended below. RECOMMENDATION FOR INCIDENTAL ADRENAL NODULE: If no history of malignancy, recommend follow-up adrenal mass protocol CT in one year. If there is a history of malignancy, recommend adrenal mass protocol CT now. * 1cm or less - No follow up * >1cm with diagnostic benign features (fat, <10HU, All ca++, Decrease signal on opposed phase GE MRI or 60% washout on CT) - No follow up * 1-2cm indeterminate, no prior or CA history - Get followup with CT Adrenal protocol in 1 year * 2-4cm indeterminate, no prior or CA history - Get CT Adrenal protocol * 1-4cm indeterminate, Positive CA history - Get CT Adrenal protocol * >4cm - no prior or CA history - consider resection * >4cm - positive CA history - consider Bx, PET/CT Marissa et al. Management of Incidental Adrenal Masses: A White Paper of the ACR Incidental Findings Committee J Am Irais Radiol 2017;14:7622-1171 *Reference: Luna Sarkar., Layne Herrera., Brian, PNannette Jama., D'Layne, Andrea., & Darin, R. F. (2006). Can CT pulmonary angiography allow assessment of severity and prognosis in patients presenting with pulmonary embolism? What the radiologist needs to know. Radiographics, 26(1), 23-39. Notes: The short axis of the right ventricle is measured at the level of the tricuspid valve from inner wall to inner wall at its widest point. The short axis of the left ventricle is measured at the level of the mitral valve from inner wall to inner wall at its widest point. Note that the short axes of the right ventricle and left ventricle may be located at different axial CT levels. RV/LV diameter ratio <1: normal RV/LV diameter ratio >1: mildly abnormal RV/LV diameter ratio >1.5: severely abnormal CRITICAL TEST RESULT COMMUNICATION: Notification of these findings was made to ALPESH MARROQUIN via [facility] Secure Chat on 05/01/2023 1:19 PM EDT. Report Dictated on Electronically Signed By: Eliot Little MD Electronically Signed Date/Time: 05/01/2023 1:25 PM EDT [facility] Patient Name: CATA AYERS : 1950 Exam Date/Time: 05/01/2023 09:44 Procedure: CT CHEST ANGIOGRAM W AND/OR WO IV CONTRAST Ordering Provider: MARROQUIN EUGENE Reason For Exam: Pulmonary embolism (PE) suspected, unknown D-dimer CT ANGIOGRAPHY CHEST: CLINICAL INDICATION: Dyspnea TECHNIQUE: Transaxial sequence from apices through the bases during dynamic intravenous infusion of 75 mL of contrast media, injected at a high flow rate. Multiplanar and 3D MIP reconstruction was performed concurrently on an independent viewing workstation. Dose reduction was employed with automated exposure control. COMPARISON: None FINDINGS: Exam quality: Good contrast enhancement of the vasculature. Pulmonary Arteries: Filling defects compatible with pulmonary emboli are present in the lobar pulmonary artery branches to the upper lobes in segmental and subsegmental branches to the bilateral upper and bilateral lower lobes. Dilated main pulmonary artery to 4.3 cm Aorta: Normal caliber. Lungs: No consolidation or atelectasis. No parenchymal or pleural-based mass. Pleural fluid: None. Heart: No abnormality . RV/LV ratio of 0.7 Mediastinum/Jeimy: No mediastinal or hilar mass. Soft tissues chest wall/Neck base: No abnormality identified. Upper abdomen: No abnormality throughout the visualized portions of liver. No abnormality throughout the spleen. 15 mm nonspecific left adrenal nodule. Osseous structures: Degenerative change of the thoracic spine is noted. [facility] Eliot Little MD - 05/01/2023 Patient Name: CATA AYERS : 1950 [facility]#: [id number] Exam Date/Time: 05/01/2023 09:44 Procedure: CT CHEST ANGIOGRAM W AND/OR WO IV CONTRAST Ordering Provider: MARROQUIN EUGENE Reason For Exam: Pulmonary embolism (PE) suspected, unknown D-dimer CT ANGIOGRAPHY CHEST: CLINICAL INDICATION: Dyspnea TECHNIQUE: Transaxial sequence from apices through the bases during dynamic intravenous infusion of 75 mL of contrast media, injected at a high flow rate. Multiplanar and 3D MIP reconstruction was performed concurrently on an independent viewing workstation. Dose reduction was employed with automated exposure control. COMPARISON: None FINDINGS: Exam quality: Good contrast enhancement of the vasculature. Pulmonary Arteries: Filling defects compatible with pulmonary emboli are present in the lobar pulmonary artery branches to the upper lobes in segmental and subsegmental branches to the bilateral upper and bilateral lower lobes. Dilated main pulmonary artery to 4.3 cm Aorta: Normal caliber. Lungs: No consolidation or atelectasis. No parenchymal or pleural-based mass. Pleural fluid: None. Heart: No abnormality . RV/LV ratio of 0.7 Mediastinum/Jeimy: No mediastinal or hilar mass. Soft tissues chest wall/Neck base: No abnormality identified. Upper abdomen: No abnormality throughout the visualized portions of liver. No abnormality throughout the spleen. 15 mm nonspecific left adrenal nodule. Osseous structures: Degenerative change of the thoracic spine is noted. IMPRESSION: 1. Bilateral pulmonary emboli. The RV/LV ratio is 0.7. This is considered normal*. 2. No consolidation or pleural effusion. 3.. Dilated main pulmonary artery; correlate for possible pulmonary hypertension. 4. Small indeterminate left adrenal nodule. Follow-up as recommended below. RECOMMENDATION FOR INCIDENTAL ADRENAL NODULE: If no history of malignancy, recommend follow-up adrenal mass protocol CT in one year. If there is a history of malignancy, recommend adrenal mass protocol CT now. * 1cm or less - No follow up * >1cm with diagnostic benign features (fat, <10HU, All ca++, Decrease signal on opposed phase GE MRI or 60% washout on CT) - No follow up * 1-2cm indeterminate, no prior or CA history - Get followup with CT Adrenal protocol in 1 year * 2-4cm indeterminate, no prior or CA history - Get CT Adrenal protocol * 1-4cm indeterminate, Positive CA history - Get CT Adrenal protocol * >4cm - no prior or CA history - consider resection * >4cm - positive CA history - consider Bx, PET/CT Marissa et al. Management of Incidental Adrenal Masses: A White Paper of the ACR Incidental Findings Committee J Am Irais Radiol 2017;14:4168-8755 *Reference: Luna Sarkar., Layne Herrera., Alcon Torres., Andrea Grewal., & Lexi Webster. (2006). Can CT pulmonary angiography allow assessment of severity and prognosis in patients presenting with pulmonary embolism? What the radiologist needs to know. Radiographics, 26(1), 23-39. Notes: The short axis of the right ventricle is measured at the level of the tricuspid valve from inner wall to inner wall at its widest point. The short axis of the left ventricle is measured at the level of the mitral valve from inner wall to inner wall at its widest point. Note that the short axes of the right ventricle and left ventricle may be located at different axial CT levels. RV/LV diameter ratio <1: normal RV/LV diameter ratio >1: mildly abnormal RV/LV diameter ratio >1.5: severely abnormal CRITICAL TEST RESULT COMMUNICATION: Notification of these findings was made to ALPESH Wang LOPEZ via [facility] Secure Chat on 05/01/2023 1:19 PM EDT. Report Dictated on Electronically Signed By: Eliot Little MD Electronically Signed Date/Time: 05/01/2023 1:25 PM EDT [employer] Radiology Study observation (narrative) [employer] CTA Chest vessels WO and W c ontrast IVOrdered By: Eliot Little on 05-01-2023 [employer] Work Phone: Laboratory - Chemistry and C hemistry - challengeon 05-01-2023 Troponin I.cardiac [Mass/Vol] ng/mL [facility] - 0.034 ng/mL [facility] Troponin I.cardiac [Mass/Vol] ng/mL [facility] - 0.034 ng/mL [facility] Troponin I.cardiac [Mass/Vol] ng/mL [facility] ng/mL [facility] Natriuretic peptide B [Mass/ Vol]on 05-01-2023 Natriuretic peptide B (Bld) [Mass/Vol] 51 pg/mL <20 - 300 [facility] Interpretation and review of laboratory results Normal [facility] Natriuretic peptide B (Bld) [Mass/Vol] 52 pg/mL <20 - 300 [facility] No Panel Informationon 04-30 P [place] 45 degrees [facility] ND Interval 144 ms [facility] QRS [place] 0 degrees [facility] QRSD Interval 84 ms [facility] QT Interval 370 ms [facility] QTC Interval 399 ms [facility] T Wave [place] 20 degrees [facility] Sinus rhythm 70bpm similar to prior. no stemi. interpretated by me. qtc normal Electronically Signed On 05-01-2023 23:38:50 EDT by Oliver Sun DO - 05/01/2023 IMPRESSION: Sinus rhythm 70bpm similar to prior. no stemi. interpretated by me. qtc normal Electronically Signed On 05-01-2023 23:38:50 EDT by Oliver Saenz [facility] Acute non-occlusive deep vein thrombosis in the right posterior tibial vein. No evidence of superficial thrombosis in the right lower extremity.. No evidence of deep vein or superficial vein thrombosis in the left lower extremity. Vessels demonstrate normal compressibility, color filling, and phasic and spontaneous flow. If patient is not anticoagulated, may follow up with studies at 3, 10, and 30 days Right Lower Venous No evidence of superficial thrombosis in the right lower extremity. If patient is not anticoagulated, may follow up with studies at 3, 10, and 30 days. Common Femoral Vein: Patent, normal phasicity, spontaneous, normal augmentation, compressible. Greater Saphenous Vein: Entire vessel patent, compressible Saphenofemoral Junction: Patent, compressible. Small Saphenous Vein: Patent, compressible. Profunda Femoral Vein: Patent. Femoral Vein: Patent, normal phasicity, spontaneous, normal augmentation, compressible Popliteal Vein: Patent, normal phasicity, spontaneous, normal augmentation, compressible. Gastrocnemius Vein: Patent, compressible. Soleal Vein: Patent, compressible. Posterior Tibial Vein: Acute non-occlusive thrombus. Peroneal Vein: Patent, compressible. Left Lower Venous No evidence of deep vein or superficial vein thrombosis. The common femoral, saphenofemoral junction, femoral, popliteal, gastrocnemius, soleal, greater saphenous, posterior tibial, and peroneal veins were imaged in the transverse view and showed normal compressibility. The common femoral, middle femoral, and popliteal veins were imaged in the longitudinal view and showed normal color filling and normal phasic and spontaneous flow. Preliminary Report Preliminary report called to Jean Paul ALTMAN on 05/01/2023 at 17:32 EDT. [employer] Details A olivas scale, color Doppler imaging and spectral Doppler analysis ultrasound was performed. During the study longitudinal and transverse views were obtained. Pulsed wave doppler was performed. The exam was performed with the patient in the supine position. Overall the study quality was adequate. Study was technically difficult due to: bedside exam. CV CPACS Interpretation and review of laboratory results Normal [facility] Troponin I.cardiac [Mass/Vol ]on 05-01-2023 Interpretation and review of laboratory results Normal [facility] Patients with high levels of Biotin oral intake (ie >5 mg/day) may have falsely decreased Troponin levels. [facility] Interpretation and review of laboratory results Normal [facility] Patients with high levels of Biotin oral intake (ie >5 mg/day) may have falsely decreased Troponin levels. [facility] Patients with high levels of Biotin oral intake (ie >5 mg/day) may have falsely decreased Troponin levels. [facility] Vital signson 05-01-2023 Heart rate 70 /min bpm [facility] Laboratory - Microbiology an d Antimicrobial susceptibilityon 02-10-2023 FLUAV RNA SHANNAN+probe Ql (Resp) Not detected Not Detected [facility] FLUBV RNA SHANNAN+probe Ql (Resp) Not detected Not Detected [facility] RSV RNA SHANNAN+probe Ql (Resp) Not detected Not Detected [facility] SARS-CoV-2 (COVID-19) RNA SHANNAN+probe Ql (Resp) Not detected Not Detected [facility] SARS-CoV-2 (COVID-19) RNA SHANNAN+probe Ql (Unsp spec) Methodology: real-time, RT-PCR The SARS-CoV-2, Flu A/B, and RSV Combo assay is intended for in vitro diagnostic use under the FDA Emergency Use Authorization (EUA). This test has not been FDA cleared or approved. In compliance with this authorization, please visit www.fda.gov/media/200 367/download or www.fda.gov/media/365 478/download to access the applicable information sheets. [facility] No Panel Informationon 02-10 SINUS ARRHYTHMIA, RATE 71- 93 EARLY PRECORDIAL R/S TRANSITION BASELINE WANDER IN LEAD(S) II,III,aVF Compared to ECG 07/28/2017 11:00:35 Sinus rhythm no longer present Left ventricular hypertrophy no longer present Electronically Signed On 02-10-2023 16:56:39 EST by Homar Hannah MD - 02/10/2023 IMPRESSION: SINUS ARRHYTHMIA, RATE 71- 93 EARLY PRECORDIAL R/S TRANSITION BASELINE WANDER IN LEAD(S) II,III,aVF Compared to ECG 07/28/2017 11:00:35 Sinus rhythm no longer present Left ventricular hypertrophy no longer present Electronically Signed On 02-10-2023 16:56:39 EST by Homar Alston [facility] SARS-CoV-2, Flu A/B, and RSV Comboon 02-10-2023 Interpretation and review of laboratory results Normal [facility] XR Chest Single viewon 02-10 No radiographic acute cardiopulmonary process. Report Dictated on Electronically Signed By: Nika Riley MD Electronically Signed Date/Time: 02/10/2023 4:54 PM [facility] Patient Name: CATA AYERS : 1950 Exam Date/Time: 02/10/2023 16:48 Procedure: XR CHEST 1 VIEW Ordering Provider: ALSTON JONATHAN Reason For Exam: DYSPNEA INDICATION: 72-year-old; shortness of breath. VIEWS: Chest portable AP upright-1 image COMPARISON: None. FINDINGS: The trachea is midline. The cardiac silhouette is within normal limits. The costophrenic angles are sharp. There is no confluent consolidation. Cardiac monitoring wires and leads are present. Multilevel endplate degenerative changes are present along the thoracolumbar spine. [facility] Nika Riley MD - 02/10/2023 Patient Name: CATA AYERS : 1950 Exam Date/Time: 02/10/2023 16:48 Procedure: XR CHEST 1 VIEW Ordering Provider: ALSTON JONATHAN Reason For Exam: DYSPNEA INDICATION: 72-year-old; shortness of breath. VIEWS: Chest portable AP upright-1 image COMPARISON: None. FINDINGS: The trachea is midline. The cardiac silhouette is within normal limits. The costophrenic angles are sharp. There is no confluent consolidation. Cardiac monitoring wires and leads are present. Multilevel endplate degenerative changes are present along the thoracolumbar spine. IMPRESSION: No radiographic acute cardiopulmonary process. Report Dictated on Electronically Signed By: Nika Riley MD Electronically Signed Date/Time: 02/10/2023 4:54 PM EST [facility] [employer] Radiology Study observation (narrative) [facility] [facility] XR Chest Single viewOrdered By: Nika Riley on 02-10-2023 [facility] [employer] Work Phone: CBC W Auto Differential pane l (Bld)on 09-04-2022 Basophils (Bld) [#/Vol] 50 10*3/uL [facility] [employer] [facility] Basophils/100 WBC (Bld) 0.7 % S [facility] Eosinophils (Bld) [#/Vol] 202 10*3/uL [facility] [facility] Eosinophils/100 WBC (Bld) 2.8 % [facility] Erythrocyte distribution width (RBC) [Ratio] 14.4 % 11.0 - 15.0 % [facility] Hematocrit (Bld) [Volume fraction] 34.0 % Low 35.0 - 45.0 % [facility] Hemoglobin (Bld) [Mass/Vol] 10.9 g/dL Low 11.7 - 15.5 g/dL [facility] Lymphocytes (Bld) [#/Vol] 2405 10*3/uL [facility] Lymphocytes/100 WBC (Bld) 33.4 % [facility] MCH (RBC) [Entitic mass] 27.1 pg 27. 0 - 33.0 pg [facility] MCHC (RBC) [Mass/Vol] 32.1 g/dL 32.0 - 36.0 g/dL [facility] MCV (RBC) [Entitic vol] 84.6 fL 80.0 - 100.0 fL [facility] Monocytes (Bld) [#/Vol] 461 10*3/uL [facility] Monocytes/100 WBC (Bld) 6.4 % S [facility] Neutrophils (Bld) [#/Vol] 4082 10*3/uL [facility] Neutrophils/100 WBC (Bld) 56.7 % [facility] Platelet mean volume (Bld) [Entitic vol] 9.1 fL 7.5 - 12.5 fL [facility] Platelets (Bld) [#/Vol] 424 10*3/uL High [facility] RBC (Bld) [#/Vol] 4.02 10*6/uL [facility] WBC (Bld) [#/Vol] 7.2 10*3/uL [facility] Comprehensive metabolic 1998 panelon 09-04-2022 Albumin [Mass/Vol] 4.3 g/dL 3.6 - 5.1 g/dL [facility] Albumin/Globulin [Mass ratio] 1.3 {ratio} [facility] ALP [Catalytic activity/Vol] 44 U/L 37 - 153 U/L [facility] ALT [Catalytic activity/Vol] 23 U/L 6 - 29 U/L [facility] AST [Catalytic activity/Vol] 21 U/L 10 - 35 U/L [facility] Bilirubin [Mass/Vol] 0.3 mg/dL 0.2 - 1 .2 mg/dL [facility] Calcium [Mass/Vol] 9.6 mg/dL 8.6 - 10. 4 mg/dL [facility] Chloride [Moles/Vol] 99 mmol/L 98 - 11 0 mmol/L [facility] CO2 [Moles/Vol] 31 mmol/L 20 - 32 mmol/L [facility] Creatinine [Mass/Vol] 1.07 mg/dL High 0.60 - 1.00 mg/dL [facility] GFR/1.73 sq M.predicted among non-blacks MDRD (S/P/Bld) [Vol rate/Area] 55 mL/min/{1.73_m2} Low > OR = 60 mL/min/1.73 m2 [facility] Comment on above: The eGFR is based on the CKD-EPI 2020 equation. To calculate the new eGFR from a previous Creatinine or Cystatin C result, go to https://www.kidney.org/professionals/ kdoqi/gfr%5Fcalculator Globulin (S) [Mass/Vol] 3.3 g/dL [facility] Glucose [Mass/Vol] 182 mg/dL High 65 - 99 mg/dL [facility] Comment on above: Fasting reference interval For someone without known diabetes, a glucose value >125 mg/dL indicates that they may have diabetes and this should be confirmed with a follow-up test. Potassium [Moles/Vol] 4.3 mmol/L 3.5 - 5.3 mmol/L [facility] Protein [Mass/Vol] 7.6 g/dL 6.1 - 8.1 g/dL [facility] Sodium [Moles/Vol] 139 mmol/L 135 - 146 mmol/L [facility] Urea nitrogen [Mass/Vol] 19 mg/dL 7 - 25 mg/dL [facility] Urea nitrogen/Creatinine [Mass ratio] 18 mg/mg [facility] Hemoglobin A1con 09-04-2022 HbA1c (Bld) [Mass fraction] 7.7 % High [facility] Comment on above: For someone without known diabetes, a hemoglobin A1c value of 6.5% or greater indicates that they may have diabetes and this should be confirmed with a follow-up test. For someone with known diabetes, a value <7% indicates that their diabetes is well controlled and a value greater than or equal to 7% indicates suboptimal control. A1c targets should be individualized based on duration of diabetes, age, comorbid conditions, and other considerations. Currently, no consensus exists regarding use of hemoglobin A1c for diagnosis of diabetes for children. Lipid 1996 panelon 3 Cholesterol [Mass/Vol] 189 mg/dL [facility] mg/dL [facility] Cholesterol in HDL [Mass/Vol] 71 mg/dL > OR = 50 [facility] Cholesterol in LDL [Mass/Vol] 95 mg/dL mg/dL (calc) [facility] Comment on above: Reference range: <10 0 Desirable range <100 mg/dL for primary prevention; <70 mg/dL for patients with CHD or diabetic patients with > or = 2 CHD risk factors. LDL-C is now calculated using the Suze calculation, which is a validated novel method providing better accuracy than the Friedewald equation in the estimation of LDL-C. Rafat HENRY et al. CHRISTIANO. 2013;310(94): 2409-0509 (http://education.Jiongji App/faq/NQQ292) Cholesterol non HDL [Mass/Vol] 118 mg/dL [facility] Comment on above: For patients with di abetes plus 1 major ASCVD risk factor, treating to a non-HDL-C goal of <100 mg/dL (LDL-C of <70 mg/dL) is considered a therapeutic option. Cholesterol.total/Cholester ol in HDL [Mass ratio] 2.7 {ratio} [facility] Triglyceride [Mass/Vol] 132 mg/dL [facility] - 150 mg/dL [facility] No Panel Informationon 09-04 Interpretation and review of laboratory results Abnormal [facility] Absolute lymphocyte countOrd ered By: Debi Spaulding on 07-16-2022 Lymphocytes Auto (Unsp spec) [#/Vol] 2.87 10*3/uL 0.83-4.51 [facility] Basophil percentageOrdered B y: Debi Spaulding on 07-16-2022 Basophils/100 WBC (Bld) 0.9 % 0-1 [facility] Eosinophils/100 WBC (Bld) 4.5 % 0-5 [facility] Neutrophils (Bld) [#/Vol] 3.6 10*3/uL 2.0-7.7 [facility] Neutrophils/100 WBC (Bld) 48.6 % 47-70 [facility] WBC (Bld) [#/Vol] 7.4 10*3/uL 4.4-11.0 [facility] Blood erythrocytes count (nu mber/volume)Ordered By: Debi Spaulding on 07-16-2022 RBC (Bld) [#/Vol] 3.85 10*6/uL 4.2-5.4 [facility] Blood hemoglobin measurement (mass/volume)Ordered By: Debi Spaulding on 07-16-2022 Hemoglobin (Bld) [Mass/Vol] 10.3 g/dL 12.0-15. 0 [facility] Blood lymphocytes/100 leukoc ytesOrdered By: Debi Spaulding on 07-16-2022 Lymphocytes/100 WBC (Bld) 38.9 % 19-41 [facility] Blood monocytes/100 leukocyt esOrdered By: Debi Spaulding on 07-16-2022 Monocytes/100 WBC (Bld) 6.8 % 0-10 [facility] Blood platelet mean volumeOr dered By: Debi Spaulding on 07-16-2022 Platelet mean volume (Bld) [Entitic vol] 9.0 fL 6.2-12.0 [facility] Determination of erythrocyte mean corpuscular volume (MCV)Ordered By: Debi Spaulding on 07-16-2022 MCV (RBC) [Entitic vol] 89.1 fL 81-99 [facility] Hematocrit Auto (Bld) [Volum e fraction]Ordered By: Debi Spaulding on 07-16-2022 Hematocrit (Bld) [Volume fraction] 34.3 % 37-47 [facility] Iron measurement (mass/mass) Ordered By: Debi Spaulding on 07-16-2022 Iron (Unsp spec) [Mass/Mass] 42 ug/dL 50-170 [facility] Laboratory - Hematology and Cell countsOrdered By: Debi Spaulding on 07-16-2022 Erythrocyte distribution width (RBC) [Entitic vol] 46.3 fL 35.1-43.9 [facility] Erythrocyte distribution width (RBC) [Ratio] 14.2 % 11.6-14.6 [facility] Immature granulocytes/100 WBC (Bld) 0.300 % 0.0-0.9 [facility] Comment on above: IG% - Immature Granu locytes (promyelocytes, myelocytes and metamyelocytes) > 1% indicates that a LEFT SHIFT is Present. MCH (RBC) [Entitic mass] 26.8 pg 27.0-32.0 [facility] Nucleated RBC/100 WBC (Bld) [Ratio] 0 % 0-5 [facility] MCHC Auto (RBC) [Mass/Vol]Or dered By: Debi Spaulding on 07-16-2022 MCHC (RBC) [Mass/Vol] 30.0 g/dL 32-36 [facility] No Panel InformationOrdered By: Debi Spaulding on 07-16-2022 Total Iron Binding Capacity 444 ug/dL 250-450 [facility] Platelets bldOrdered By: Nhung Spaulding on 07-16-2022 Platelets (Bld) [#/Vol] 397 10*3/uL 150-450 [facility] Serum or plasma ferritin pedrito surement (mass/volume)Ordered By: Debi Spaulding on 07-16-2022 Ferritin [Mass/Vol] 12 ng/mL 8-252 [facility] Serum or plasma iron saturat ion measurement (mass fraction)Ordered By: Debi Spaulding on 07-16-2022 Iron saturation [Mass fraction] 9.5 % 15.0-55.0 [facility] Clostridium difficile detect ion by polymerase chain reactionOrdered By: Debi Spaulding on 04-12-2022 C. difficile DNA SHANNAN+probe Ql (Unsp spec) [facility] EP PanelOrdered By: Debi Spaulding on 04-12-2022 Gastrointestinal pathogens panel SHANNAN+probe (Stl) [facility] No Panel InformationOrdered By: Debi Spaulding on 04-12-2022 Stool Calprotectin 94 ug/g 0-120 [facility] Comment on above: Concentration Interp retation Follow-Up<16 - 50 ug/g Normal None>50 -120 ug/g Borderline Re-evaluate in 4-6 weeks >120 ug/g Abnormal Repeat as clinically indicatedPerformed at: - [facility] [id number] Director: Beverly Peña MD, Phone: [phone] Stool lactoferrin detection by immunoassayOrdered By: Debi Spaulding on 04-12-2022 Lactoferrin IA Ql (Stl) [facility] Absolute lymphocyte countOrd ered By: Debi Spaulding on 04-11-2022 Lymphocytes Auto (Unsp spec) [#/Vol] 2.68 10*3/uL 0.83-4.51 [facility] Albumin Elph [Mass/Vol]Order ed By: Debi Chelly on 04-11-2022 Albumin [Mass/Vol] 3.5 g/dL 2.9-4.4 [facility] Atypical perinuclear antineu trophil cytoplasmic antibodies measurementOrdered By: Debi Spaulding on 04-11-2022 Neutrophil cytoplasmic Ab.perinuclear.atypical IF (S) [Titer] <1:20 titer Neg:<1:20 [facility] Comment on above: The atypical pANCA p attern has been observed in asignificant percentage of patients with ulcerative colitis,primary sclerosing cholangitis and autoimmune hepatitis.Performed at: [facility] [id number] Director: Kurt Trevizo PhD, Phone: [phone] at: [facility] [id number] Director: Beverly Peña MD, Phone: [phone] Basophil percentageOrdered B y: Debi Chelly on 04-11-2022 Basophil percentage < 0.2 AI 0.0-0.9 [facility] Basophils/100 WBC (Bld) 0.9 % 0-1 [facility] Bilirubin [Mass/Vol] 0.20 mg/dL 0.20-1.00 [facility] Comment on above: For patients on eltr ombopag therapy, use of Dimension Raymond TBIL is not recommended. Chloride [Moles/Vol] 100 mmol/L 98-107 [facility] Eosinophils/100 WBC (Bld) 3.8 % 0-5 [facility] Glucose [Mass/Vol] 163 mg/dL 74-106 [facility] Comment on above: Fasting Glucose resu lt greater than or equal to 126 mg/dL suggests DIABETES MELLITUS per A.D.A. criteria. LDH [Catalytic activity/Vol] 161 U/L 84-246 [facility] Neutrophils (Bld) [#/Vol] 4.6 10*3/uL 2.0-7.7 [facility] Neutrophils/100 WBC (Bld) 56.7 % 47-70 [facility] Potassium [Moles/Vol] 3.8 mmol/L 3.5-5.1 [facility] Protein [Mass/Vol] 7.9 g/dL 6.4-8.2 [facility] Sodium [Moles/Vol] 138 mmol/L 136-145 [facility] WBC (Bld) [#/Vol] 8.1 10*3/uL 4.4-11.0 [facility] Blood erythrocytes count (nu mber/volume)Ordered By: Debi Spaulding on 04-11-2022 RBC (Bld) [#/Vol] 3.89 10*6/uL 4.2-5.4 [facility] Blood hemoglobin measurement (mass/volume)Ordered By: Debi Spaulding on 04-11-2022 Hemoglobin (Bld) [Mass/Vol] 10.6 g/dL 12.0-15. 0 [facility] Blood lymphocytes/100 leukoc ytesOrdered By: Debi Spaulding on 04-11-2022 Lymphocytes/100 WBC (Bld) 33.1 % 19-41 [facility] Blood monocytes/100 leukocyt esOrdered By: Debi Spaulding on 04-11-2022 Monocytes/100 WBC (Bld) 5.3 % 0-10 [facility] Blood platelet mean volumeOr dered By: Debi Spaulding on 04-11-2022 Platelet mean volume (Bld) [Entitic vol] 8.9 fL 6.2-12.0 [facility] Determination of erythrocyte mean corpuscular volume (MCV)Ordered By: Debi Spaulding on 04-11-2022 MCV (RBC) [Entitic vol] 88.9 fL 81-99 [facility] Erythrocyte sedimentation ra teOrdered By: Debi Spaulding on 04-11-2022 ESR (Bld) [Velocity] 27 mm/h 0-30 [facility] Hematocrit Auto (Bld) [Volum e fraction]Ordered By: Debi Spaulding on 04-11-2022 Hematocrit (Bld) [Volume fraction] 34.6 % 37-47 [facility] Interpretation of serum or p lasma protein pattern by immunofixation (narrative resultOrdered By: Debi Spaulding on 04-11-2022 Protein Fractions Immunofixation Jatin [Interp] See comment [facility] Comment on above: Result: Not Observed Laboratory - Chemistry and C hemistry - challengeOrdered By: Debi Spaulding on 04-11-2022 ALP [Catalytic activity/Vol] 56 U/L 45-117 [facility] ALT [Catalytic activity/Vol] 27 U/L 13-56 [facility] CO2 [Moles/Vol] 30.0 mmol/L 21.0-32.0 [facility] Urea nitrogen/Creatinine [Mass ratio] 20.9 mg/mg 10-20 [facility] Laboratory - Hematology and Cell countsOrdered By: Debi Spaulding on 04-11-2022 Erythrocyte distribution width (RBC) [Entitic vol] 45.7 fL 35.1-43.9 [facility] Erythrocyte distribution width (RBC) [Ratio] 14.2 % 11.6-14.6 [facility] Immature granulocytes/100 WBC (Bld) 0.200 % 0.0-0.9 [facility] Comment on above: IG% - Immature Granu locytes (promyelocytes, myelocytes and metamyelocytes) > 1% indicates that a LEFT SHIFT is Present. MCH (RBC) [Entitic mass] 27.2 pg 27.0-32.0 [facility] Nucleated RBC/100 WBC (Bld) [Ratio] 0 % 0-5 [facility] MCHC Auto (RBC) [Mass/Vol]Or dered By: Debi Spaulding on 04-11-2022 MCHC (RBC) [Mass/Vol] 30.6 g/dL 32-36 [facility] No Panel InformationOrdered By: Debi Spaulding on 04-11-2022 Addendum Document Comment . [facility] Comment on above: Protein electrophore sis scan will follow via computer,mail, or undercover operator delivery. Centromere B Antibody <0.2 AI 0.0-0.9 [facility] Endomysial IgA Antibody Negative Negative [facility] Estimated GFR (MDRD) Amer 62 mL/min >60 [facility] Comment on above: GFR Calc Estimated GFR (MDRD) Non-Af Amer 52 mL/min >60 [facility] Comment on above: Non- GFR Calc Immunoglobulin E 262 IU/mL 6-495 [facility] EXECUTIVE DIRECTOR Antibody <0.2 AI 0.0-0.9 [facility] Platelets bldOrdered By: Nhung Spaulding on 04-11-2022 Platelets (Bld) [#/Vol] 396 10*3/uL 150-450 [facility] Serum DNA double strand anti body assay (units/volume)Ordered By: Debi Spaulding on 04-11-2022 DNA double strand Ab Qn (S) 1 [IU]/mL 0-9 [facility] Comment on above: Negative <5 Equivoca l 5 - 9 Positive >9 Serum Ama-1 antibody assay (u nits/volume)Ordered By: Debi Spaulding on 04-11-2022 Ama-1 extractable nuclear Ab Qn (S) <0.2 AI 0.0-0.9 [facility] Serum Scl-70 extractable nuc lear antibody assay (units/volume)Ordered By: Debi Spaulding on 04-11-2022 SCL-70 extractable nuclear Ab Qn (S) <0.2 AI 0.0-0.9 [facility] Serum Bell extractable nucl ear antibody detectionOrdered By: Debi Spaulding on 04-11-2022 Bell extractable nuclear Ab Ql (S) <0.2 AI 0.0-0.9 [facility] Serum [id number] measu rement by electrophoresisOrdered By: Debi Spaulding on 04-11-2022 Alpha 1 globulin Elph [Mass/Vol] 0.3 g/dL 0.0-0.4 [facility] Alpha 1 globulin Elph [Mass/Vol] 1.1 g/dL 0.4-1.0 [facility] Serum classic neutrophil cyt oplasmic antibody assay (units/volume)Ordered By: Debi Spaulding on 04-11-2022 Neutrophil cytoplasmic Ab.classic Qn (S) <1:20 titer Neg:<1:20 [facility] Serum globulin measurement ( mass/volume)Ordered By: Dbei Spaulding on 04-11-2022 Globulin (S) [Mass/Vol] 3.8 g/dL 2.2-3.9 [facility] Serum or plasma C reactive p rotein measurement (mass/volume)Ordered By: Debi Spaulding on 04-11-2022 CRP [Mass/Vol] 6.44 mg/L 0.0-3.0 [facility] Comment on above: C-Reactive Protein ( CRP) provides useful information for thediagnosis, therapy and monitoring of inflammatory processesand associated diseases. For the evaluation of Relative Riskfor Cardiovascular Disease, a High Sensitivity CRP (HSCRP)should be ordered. Serum or plasma IgA measurem ent (mass/volume)Ordered By: Debi Spaulding on 04-11-2022 IgA [Mass/Vol] 292 mg/dL 64-422 [facility] Serum or plasma IgG measurem ent (mass/volume)Ordered By: Debi Spaulding on 04-11-2022 IgG [Mass/Vol] 1182 mg/dL [phone] [facility] Serum or plasma IgM measurem ent (mass/volume)Ordered By: Debi Spaulding on 04-11-2022 IgM [Mass/Vol] 93 mg/dL 26-217 [facility] Serum or plasma albumin jose guadalupe urement (mass/volume)Ordered By: Debi Spaulding on 04-11-2022 Albumin [Mass/Vol] 3.6 g/dL 3.2-5.0 [facility] Serum or plasma albumin/glob ulin mass ratioOrdered By: Debi Spaulding on 04-11-2022 Albumin/Globulin [Mass ratio] 0.8 {ratio} 0.9-2.4 [facility] Serum or plasma beta globuli n measurement by electrophoresis (mass/volume)Ordered By: Debi Spaulding on 04-11-2022 Beta globulin Elph [Mass/Vol] 1.3 g/dL 0.7-1.3 [facility] Serum or plasma calcium jose guadalupe urement (mass/volume)Ordered By: Debi Spaulding on 04-11-2022 Calcium [Mass/Vol] 9.3 mg/dL 8.5-10.1 [facility] Serum or plasma creatinine m easurement (mass/volume)Ordered By: Debi Spaulding on 04-11-2022 Creatinine [Mass/Vol] 1.10 mg/dL 0.55-1.02 [facility] Comment on above: The validity of the calculated GFR & GFRAA in patients over 70 years has not been determined. Clinical correlation is essential. Serum or plasma gamma globul in measurement by electrophoresis (mass/volume)Ordered By: Debi Spaulding on 04-11-2022 Gamma globulin Elph [Mass/Vol] 1.2 g/dL 0.4-1.8 [facility] Serum or plasma immunoelectr ophoresis interpretation (nominal result)Ordered By: Debi Spaulding on 04-11-2022 Interpretation IEP [Interp] Comment: . [facility] Comment on above: Presence of monoclon al protein is unclear at this time. Suggestrepeat in 3 to 6 months if clinically indicated. Serum or plasma urea nitroge n measurement (mass/volume)Ordered By: Debi Spaulding on 04-11-2022 Urea nitrogen [Mass/Vol] 23 mg/dL 7-18 [facility] Serum perinuclear neutrophil cytoplasmic antibody titer by immunofluorescenceOrdered By: Debi Spaulding on 04-11-2022 Neutrophil cytoplasmic Ab.perinuclear IF (S) [Titer] <1:20 titer Neg:<1:20 [facility] Comment on above: The presence of posi tive fluorescence exhibiting P-ANCA orC-ANCA patterns alone is not specific for the diagnosis ofWegener's Granulomatosis (WG) or microscopic polyangiitis.Decisions about treatment should not be based solely onANCA IFA results. The International ANCA Group Consensusrecommends follow up testing of positive sera with both ND-3 and MPO-ANCA enzyme immunoassays. As many as 5% serumsamples are positive only by EIA. Ref. AM J Clin [id number];111:507-513. Serum tissue transglutaminas e IgA antibody assay (units/volume)Ordered By: Debi Spaulding on 04-11-2022 tTG IgA Qn (S) <2 U/mL 0-3 [facility] Comment on above: Negative 0 - 3 Weak Positive 4 - 10 Positive >10 Tissue Transglutaminase (tTG) has been identified as the endomysial antigen. Studies have demonstr- ated that endomysial IgA antibodies have over 99% specificity for gluten sensitive enteropathy. Thin prep Papanicolaou smear with manual screeningOrdered By: Debi Spaulding on 04-11-2022 Thin prep Papanicolaou smear with manual screening 19 U/L 15-37 [facility] Thin prep Papanicolaou smear with manual screening 8 5-15 [facility] Thin prep Papanicolaou smear with manual screening 1.0 0.7-1.7 [facility] Total protein bloodOrdered B y: Debi Spaulding on 04-11-2022 Protein [Mass/Vol] 7.3 g/dL 6.0-8.5 [facility] AMB POC URINE, MICROALBUMINo n 03-06-2022 Albumin Test strip detection limit <= 20 mg/L (U) [Mass/Vol] 10 200 < 30 [facility] Interpretation and review of laboratory results Normal [facility] VL DUP LOWER EXTREMITY VENOU S LEFTon 05-22-2021 Patient Name: CATA AYERS Ultrasound ACCESSION EXAM DATE/TIME PROCEDURE ORDERING PROVIDER [id number] 05/22/2021 09:25 EDT VL Venous Duplex US [id number] MARTHA HOWELL Lower Ext Left CPT code 34631 Reason For Exam (VL Venous Duplex US Lower Ext Left) See dx Report VENOUS SONOGRAM WITH DOPPLER FLOW IMAGING OF THE LEFT LOWER EXTREMITY History: Left leg pain and swelling, evaluate for DVT. Comparison: None available Technique: Ultrasound and Doppler imaging of the veins of the left lower extremity from the common femoral to the popliteal branches and gastrocnemius veins are provided. Findings: The visualized deep veins of the left lower extremity show unremarkable color Doppler flow and compressibility without evidence of clot. There is normal augmentation. The Doppler waveforms are normal. IMPRESSION: No evidence of DVT in the left lower extremity. Report Dictated on --- Final --- Dictating Physician: MD CARDOSO AHMAD Signed Date and Time: 05/22/2021 10:10 am Signed by: MD CARDOSO AHMAD Transcribed Date and Time: 05/22/2021 10:11 Cardiovascular ACCESSION EXAM DATE/TIME PROCEDURE [id number] 05/22/2021 09:25 EDT VL Venous Duplex US Lower Ext Left CPT code 25303 Reason For Exam (VL Venous Duplex US Lower Ext Left) See dx Cardiovascular Report VENOUS SONOGRAM WITH DOPPLER FLOW IMAGING OF THE LEFT LOWER EXTREMITY History: Left leg pain and swelling, evaluate for DVT. Comparison: None available Technique: Ultrasound and Doppler imaging of the veins of the left lower extremity from the common femoral to the popliteal branches and gastrocnemius veins are provided. Findings: The visualized deep veins of the left lower extremity show unremarkable color Doppler flow and compressibility without evidence of clot. There is normal augmentation. The Doppler waveforms are normal. IMPRESSION: No evidence of DVT in the left lower extremity. Report Dictated on --- Final --- Dictating Physician: MD CARDOSO AHMAD Signed Date and Time: 05/22/2021 10:10 am Signed by: MD CARDOSO AHMAD Transcribed Date and Time: 05/22/2021 10:11 [facility] Cyrus Cardoso MD - 05/22/2021 [id number] Ultrasound ACCESSION EXAM DATE/TIME PROCEDURE ORDERING PROVIDER [id number] 05/22/2021 09:25 EDT VL Venous Duplex US [id number] MARTHA HOWELL Lower Ext Left CPT code 75992 Reason For Exam (VL Venous Duplex US Lower Ext Left) See dx Report VENOUS SONOGRAM WITH DOPPLER FLOW IMAGING OF THE LEFT LOWER EXTREMITY History: Left leg pain and swelling, evaluate for DVT. Comparison: None available Technique: Ultrasound and Doppler imaging of the veins of the left lower extremity from the common femoral to the popliteal branches and gastrocnemius veins are provided. Findings: The visualized deep veins of the left lower extremity show unremarkable color Doppler flow and compressibility without evidence of clot. There is normal augmentation. The Doppler waveforms are normal. IMPRESSION: No evidence of DVT in the left lower extremity. Report Dictated on --- Final --- Dictating Physician: MD CARDOSO AHMAD Signed Date and Time: 05/22/2021 10:10 am Signed by: MD CARDOSO AHMAD Transcribed Date and Time: 05/22/2021 10:11 Cardiovascular ACCESSION EXAM DATE/TIME PROCEDURE [id number] 05/22/2021 09:25 EDT VL Venous Duplex US Lower Ext Left CPT code 87665 Reason For Exam (VL Venous Duplex US Lower Ext Left) See dx Cardiovascular Report VENOUS SONOGRAM WITH DOPPLER FLOW IMAGING OF THE LEFT LOWER EXTREMITY History: Left leg pain and swelling, evaluate for DVT. Comparison: None available Technique: Ultrasound and Doppler imaging of the veins of the left lower extremity from the common femoral to the popliteal branches and gastrocnemius veins are provided. Findings: The visualized deep veins of the left lower extremity show unremarkable color Doppler flow and compressibility without evidence of clot. There is normal augmentation. The Doppler waveforms are normal. IMPRESSION: No evidence of DVT in the left lower extremity. Report Dictated on --- Final --- Dictating Physician: MD CARDOSO AHMAD Signed Date and Time: 05/22/2021 10:10 am Signed by: MD CARDOSO AHMAD Transcribed Date and Time: 05/22/2021 10:11 [facility] Work Phone: Radiology Study observation (narrative) [facility] Work Phone: VL DUP LOWER EXTREMITY VENOU S LEFTOrdered By: Cyrus Cardoso on 05-22-2021 [facility] Work Phone: VL Venous Duplex US Lower Ex t Lefton 05-22-2021 VL Venous Duplex US Lower Ext Left Patient Name: CATA AYERS Ultrasound ACCESSION EXAM DATE/TIME PROCEDURE ORDERING PROVIDER [id number] 05/22/2021 09:25 EDT VL Venous Duplex US [id number] MARTHA HOWELL Lower Ext Left CPT code 64948 Reason For Exam (VL Venous Duplex US Lower Ext Left) See dx Report VENOUS SONOGRAM WITH DOPPLER FLOW IMAGING OF THE LEFT LOWER EXTREMITY History: Left leg pain and swelling, evaluate for DVT. Comparison: None available Technique: Ultrasound and Doppler imaging of the veins of the left lower extremity from the common femoral to the popliteal branches and gastrocnemius veins are provided. Findings: The visualized deep veins of the left lower extremity show unremarkable color Doppler flow and compressibility without evidence of clot. There is normal augmentation. The Doppler waveforms are normal. IMPRESSION: No evidence of DVT in the left lower extremity. Report Dictated on Final Dictating Physician: MD CARDOSO AHMAD Signed Date and Time: 05/22/2021 10:10 am Signed by: MD CARDOSO AHMAD Transcribed Date and Time: 05/22/2021 10:11 Cardiovascular ACCESSION EXAM DATE/TIME PROCEDURE [id number] 05/22/2021 09:25 EDT VL Venous Duplex US Lower Ext Left CPT code 99149 Reason For Exam (VL Venous Duplex US Lower Ext Left) See dx Cardiovascular Report VENOUS SONOGRAM WITH DOPPLER FLOW IMAGING OF THE LEFT LOWER EXTREMITY History: Left leg pain and swelling, evaluate for DVT. Comparison: None available Technique: Ultrasound and Doppler imaging of the veins of the left lower extremity from the common femoral to the popliteal branches and gastrocnemius veins are provided. Findings: The visualized deep veins of the left lower extremity show unremarkable color Doppler flow and compressibility without evidence of clot. There is normal augmentation. The Doppler waveforms are normal. IMPRESSION: No evidence of DVT in the left lower extremity. Report Dictated on Final Dictating Physician: MD CARDOSO AHMAD Signed Date and Time: 05/22/2021 10:10 am Signed by: MD CARDOSO AHMAD Transcribed Date and Time: 05/22/2021 10:11 [facility] MG Breast Tomosynthesis Scr Blon 09-18-2020 MG Breast Tomosynthesis Scr Bl Patient Name: CATA AYERS Mammography ACCESSION EXAM DATE/TIME PROCEDURE ORDERING PROVIDER [id number] 09/18/2020 11:52 EDT MG Breast Tomosynthesis DO MARROQUIN EUGENE F. BI Scr CPT code 64438 06331 Reason For Exam (MG Breast Tomosynthesis BI Scr) screening Report TIME SINCE LAST MAMMOGRAM: Last mammogram was performed 3 years and 2 months ago. REASON FOR EXAM: screening, asymptomatic. PROCEDURE: MG BREAST TOMOSYNTHESIS BL SCR: SEPTEMBER 18, 2020 - 2D/3D Procedure 3D Bilateral CC and MLO view(s) were taken. 2D Bilateral CC and MLO view(s) were taken. Prior study comparison: July 08, 2017, bilateral MG breast tomosynthesis bl scr performed at [facility]. July 18, 2013, bilateral screening mammogram performed at [facility]. July 16, 2012, bilateral screening mammogram performed at [facility]. TISSUE DENSITY: BIRADS B - There are scattered fibroglandular densities. . PATIENT CANCER HISTORY: No Personal History of Cancer FAMILY CANCER HISTORY: Father Prostate Cancer age 80 Paternal Grandfather Prostate Cancer Paternal Cousin Stomach Cancer . FINDINGS: No suspicious masses, architectural distortions or suspiciously clustered microcalcifications are identified. There is no evidence of skin thickening or nipple retraction. There are no significant changes when compared with prior studies. No mammographic evidence of malignancy. Markings on images: BB's = Nipples; skin lesions Open [place] = Palpable Line = Scar 2D digital mammography and tomosynthesis imaging were performed and reviewed with CAD. Mammography Report ASSESSMENT: Category 1 Negative RECOMMENDATION: Routine screening mammogram of both breasts in 1 year. . Report Dictated on Cancer Risk Assessment: This risk assessment is based on patient provided information collected in a risk survey taken at the time of this examination. Lifetime breast cancer risk: Low Risk - If greater than or equal to 20%, consider annual mammogram and annual screening Breast MRI or follow up in high risk clinic. A score of Low Risk indicates a score of less than 20%. Is the patient at elevated risk based on the HBOC criteria? No (Hereditary Breast and Ovarian Cancer) - If yes, consider genetic counseling and testing with high risk follow up. Is the patient at elevated risk based on the Paul Syndrome criteria? No - If yes, consider genetic counseling and testing with high risk follow up. Final Signed Date and Time: 09/18/2020 1:38 pm Signed by: DO ARITA RACHEL Normal [facility] Vital Signs Date Time Vital Sign Value Performing Clinician Facility 10-06-2024 11:50-0400 Diastolic blood pressure 50 mm[Hg] Chair 1 [facility] 10-06-2024 11:50-0400 Systolic blood pressure 140 mm[Hg] Chair 1 [facility] 10-06-2024 11:04-0400 Body temperature 97.7 [degF] Chair 1 [facility] 10-06-2024 11:04-0400 Heart rate 57 /min Chair 1 [facility] 10-06-2024 11:04-0400 SaO2% (BldA) [Mass fraction] 98 % Chair 1 [facility] 09-29-2024 10:56-0400 Diastolic blood pressure 61 mm[Hg] Chair 3 [facility] 09-29-2024 10:56-0400 Heart rate 57 /min Chair 3 [facility] 09-29-2024 10:56-0400 Systolic blood pressure 137 mm[Hg] Chair 3 [facility] 09-29-2024 09:56-0400 Body temperature 98.4 [degF] Chair 3 [facility] 09-29-2024 09:56-0400 Respiratory rate 16 /min Chair 3 [facility] 09-29-2024 09:56-0400 SaO2% (BldA) [Mass fraction] 97 % Chair 3 [facility] 09-22-2024 12:14-0400 Body temperature 98.2 [degF] Chair 2 [facility] 09-22-2024 12:14-0400 Diastolic blood pressure 59 mm[Hg] Chair 2 [facility] 09-22-2024 12:14-0400 Heart rate 56 /min Chair 2 [facility] 09-22-2024 12:14-0400 SaO2% (BldA) [Mass fraction] 99 % Chair 2 [facility] 09-22-2024 12:14-0400 Systolic blood pressure 135 mm[Hg] Chair 2 [facility] 09-22-2024 11:02-0400 Body mass index (BMI) [Ratio] 30.31 kg/m2 Chair 2 [facility] 09-22-2024 11:02-0400 Body weight 77.61 kg Chair 2 [facility] 09-22-2024 11:02-0400 Respiratory rate 20 /min Chair 2 [facility] 09-08-2024 10:34-0400 Body height 160 cm Harrysean Fishradha CORRALES Work Phone: [facility] 09-08-2024 10:34-0400 Body mass index (BMI) [Ratio] 29.99 kg/m2 Harry Maggie DO Work Phone: [facility] 09-08-2024 10:34-0400 Body temperature 97.81 [degF] Harry Maggie DO Work Phone: [facility] 09-08-2024 10:34-0400 Body weight 76.79 kg Harry Maggie DO Work Phone: [facility] 09-08-2024 10:34-0400 Diastolic blood pressure 55 mm[Hg] Harry Maggie DO Work Phone: [facility] 09-08-2024 10:34-0400 Heart rate 57 /min Harry Maggie DO Work Phone: [facility] 09-08-2024 10:34-0400 SaO2% (BldA) [Mass fraction] 99 % Harry Maggie DO Work Phone: [facility] 09-08-2024 10:34-0400 Systolic blood pressure 133 mm[Hg] Harry Maggie DO Work Phone: [facility] 07-26-2024 10:23-0400 Diastolic blood pressure 72 mm[Hg] Harry Maggie DO Work Phone: [facility] 07-26-2024 10:23-0400 Systolic blood pressure 138 mm[Hg] Harry Maggie DO Work Phone: [facility] 07-26-2024 10:17-0400 Body height 160 cm Harry Maggie DO Work Phone: [facility] 07-26-2024 10:17-0400 Body mass index (BMI) [Ratio] 30.19 kg/m2 Harry Maggie DO Work Phone: [facility] 07-26-2024 10:17-0400 Body temperature 97.81 [degF] Harry Maggie DO Work Phone: [facility] 07-26-2024 10:17-0400 Body weight 77.29 kg Harry Fishel DO Work Phone: [facility] 07-26-2024 10:17-0400 Heart rate 60 /min Harry Fishel DO Work Phone: [facility] 07-26-2024 10:17-0400 SaO2% (BldA) [Mass fraction] 99 % Harry Fishel DO Work Phone: [facility] 07-12-2024 11:39-0400 Body height 160 cm Sada Mace PA-C Work Phone: [facility] 07-12-2024 11:39-0400 Body mass index (BMI) [Ratio] 30.47 kg/m2 Sada Mace PA-C Work Phone: [facility] 07-12-2024 11:39-0400 Body temperature 97 [degF] Sada Mace PA-C Work Phone: [facility] 07-12-2024 11:39-0400 Body weight 78.02 kg Sada Mace PA-C Work Phone: [facility] 07-12-2024 11:39-0400 Diastolic blood pressure 63 mm[Hg] Sada Mace PA-C Work Phone: [facility] 07-12-2024 11:39-0400 Heart rate 65 /min Sada Mace PA-C Work Phone: [facility] 07-12-2024 11:39-0400 SaO2% (BldA) [Mass fraction] 100 % Sada Mace PA-C Work Phone: [facility] 07-12-2024 11:39-0400 Systolic blood pressure 125 mm[Hg] Sada Mace PA-C Work Phone: [facility] 06-14-2024 11:20-0400 Body height 161.3 cm Sada Mace PA-C Work Phone: [facility] 06-14-2024 11:20-0400 Body mass index (BMI) [Ratio] 30.44 kg/m2 Sada Mace PA-C Work Phone: [facility] 06-14-2024 11:20-0400 Body temperature 97.2 [degF] Sada Bookero PA-C Work Phone: [facility] 06-14-2024 11:20-0400 Body weight 79.2 kg Sada Bookero PA-C Work Phone: [facility] 06-14-2024 11:20-0400 Diastolic blood pressure 62 mm[Hg] Sada Bookero PA-C Work Phone: [facility] 06-14-2024 11:20-0400 Heart rate 79 /min Sada Bookero PA-C Work Phone: [facility] 06-14-2024 11:20-0400 SaO2% (BldA) [Mass fraction] 97 % Sada Mace PA-C Work Phone: [facility] 06-14-2024 11:20-0400 Systolic blood pressure 127 mm[Hg] Sada Bookero PA-C Work Phone: [facility] 06-10-2024 19:55-0400 Body temperature 97.7 [degF] Dr. Alpesh Marroquin DO Work Phone: [facility] 06-10-2024 19:55-0400 Diastolic blood pressure 50 mm[Hg] Dr. Alpesh Marroquin DO Work Phone: [facility] 06-10-2024 19:55-0400 Heart rate 64 /min Dr. Alpesh Marroquin DO Work Phone: [facility] 06-10-2024 19:55-0400 Respiratory rate 16 /min Dr. Alpesh Marroquin DO Work Phone: [facility] 06-10-2024 19:55-0400 SaO2% (BldA) [Mass fraction] 98 % Dr. Alpesh Marroquin DO Work Phone: [facility] 06-10-2024 19:55-0400 Systolic blood pressure 139 mm[Hg] Dr. Alpesh Marroquin DO Work Phone: [facility] 06-10-2024 16:33-0400 Body height 160.[address] Alpesh Marroquin DO Work Phone: [facility] 06-10-2024 16:33-0400 Body mass index (BMI) [Ratio] 31.4 kg/m2 Dr. Alpesh Marroquin DO Work Phone: [facility] 06-10-2024 16:33-0400 Body weight 80.[address] Alpesh Marroquin DO Work Phone: [facility] 06-07-2024 10:34-0400 Body height 161.3 cm Sada Mace PA-C Work Phone: [facility] 06-07-2024 10:34-0400 Body mass index (BMI) [Ratio] 31.28 kg/m2 Sada Mace PA-C Work Phone: [facility] 06-07-2024 10:34-0400 Body temperature 97.11 [degF] Sada Mace PA-C Work Phone: [facility] 06-07-2024 10:34-0400 Body weight 81.38 kg Sada Mace PA-C Work Phone: [facility] 06-07-2024 10:34-0400 Diastolic blood pressure 65 mm[Hg] Sada Bookero PA-C Work Phone: [facility] 06-07-2024 10:34-0400 Heart rate 54 /min Sada Mace PA-C Work Phone: [facility] 06-07-2024 10:34-0400 SaO2% (BldA) [Mass fraction] 95 % Sada Mace PA-C Work Phone: [facility] 06-07-2024 10:34-0400 Systolic blood pressure 135 mm[Hg] Sada Mace PA-C Work Phone: [facility] 05-25-2024 08:12-0400 Body height 161.3 cm Alpesh Marroquin DO Work Phone: [facility] 05-25-2024 08:12-0400 Body mass index (BMI) [Ratio] 31.73 kg/m2 Alpesh Marroquin DO Work Phone: [facility] 05-25-2024 08:12-0400 Body temperature 96.91 [degF] Alpesh Marroquin DO Work Phone: [facility] 05-25-2024 08:12-0400 Body weight 82.56 kg Alpesh Marroquin DO Work Phone: [facility] 05-25-2024 08:12-0400 Diastolic blood pressure 78 mm[Hg] Alpesh Marroquin DO Work Phone: [facility] 05-25-2024 08:12-0400 Heart rate 64 /min Alpesh Marroquin DO Work Phone: [facility] 05-25-2024 08:12-0400 SaO2% (BldA) [Mass fraction] 97 % Alpesh Marroquin DO Work Phone: [facility] 05-25-2024 08:12-0400 Systolic blood pressure 130 mm[Hg] Alpesh Marroquin DO Work Phone: [facility] 03-01-2024 10:11-0500 Diastolic blood pressure 60 mm[Hg] [facility] Schedule [facility] 03-01-2024 10:11-0500 Heart rate 60 /min [facility] Schedule [facility] 03-01-2024 10:11-0500 Systolic blood pressure 128 mm[Hg] [facility] Schedule [facility] 01-26-2024 12:56-0500 Body height 161.3 cm Alpesh Marroquin DO Work Phone: [facility] 01-26-2024 12:56-0500 Body mass index (BMI) [Ratio] 31.39 kg/m2 Alpesh Marroquin DO Work Phone: [facility] 01-26-2024 12:56-0500 Body temperature 98.6 [degF] Alpesh Marroquin DO Work Phone: [facility] 01-26-2024 12:56-0500 Body weight 81.65 kg Alpesh Marroquin DO Work Phone: [facility] 01-26-2024 12:56-0500 Diastolic blood pressure 73 mm[Hg] Alpesh Marroquin DO Work Phone: [facility] 01-26-2024 12:56-0500 Heart rate 58 /min Alpesh Marroquin DO Work Phone: [employer] [facility] 01-26-2024 12:56-0500 SaO2% (BldA) [Mass fraction] 92 % Alpesh Marroquin DO Work Phone: [employer] 01-26-2024 12:56-0500 Systolic blood pressure 157 mm[Hg] Alpesh Marroquin DO Work Phone: [employer] [facility] 12-03-2023 10:05-0400 Body height 161.3 cm Ayaan Lara MD Work Phone: [facility] 12-03-2023 10:05-0400 Body mass index (BMI) [Ratio] 31.39 kg/m2 Ayaan Lara MD Work Phone: [employer] [facility] 12-03-2023 10:05-0400 Body weight 81.65 kg Ayaan Lara MD Work Phone: [employer] 12-03-2023 10:05-0400 Diastolic blood pressure 68 mm[Hg] Ayaan Lara MD Work Phone: [facility] 12-03-2023 10:05-0400 Heart rate 63 /min Ayaan Lara MD Work Phone: [employer] [facility] 12-03-2023 10:05-0400 SaO2% (BldA) [Mass fraction] 97 % Ayaan Lara MD Work Phone: [employer] Comment on above: 12-03-2023 10:05-0400 Systolic blood pressure 128 mm[Hg] Ayaan Lara MD Work Phone: [facility] 11-17-2023 10:59-0400 Body height 161.3 cm Ayaan Lara MD Work Phone: [employer] 11-17-2023 10:59-0400 Body mass index (BMI) [Ratio] 31.21 kg/m2 Ayaan Lara MD Work Phone: [employer] 11-17-2023 10:59-0400 Body weight 81.19 kg Ayaan Lara MD Work Phone: [employer] 10-07-2023 09:33-0400 Body height 161.3 cm Alpesh Marroquin DO Work Phone: [employer] 10-07-2023 09:33-0400 Body mass index (BMI) [Ratio] 31.21 kg/m2 Alpesh Parksa DO Work Phone: [employer] 10-07-2023 09:33-0400 Body temperature 97 [degF] Alpesh Parksa DO Work Phone: [employer] 10-07-2023 09:33-0400 Body weight 81.19 kg Alpesh Parksa DO Work Phone: [employer] 10-07-2023 09:33-0400 Diastolic blood pressure 62 mm[Hg] Alpesh Parksa DO Work Phone: [employer] 10-07-2023 09:33-0400 Heart rate 62 /min Alpesh Parksa DO Work Phone: [employer] 10-07-2023 09:33-0400 SaO2% (BldA) [Mass fraction] 99 % Alpesh Parksa DO Work Phone: [employer] 10-07-2023 09:33-0400 Systolic blood pressure 130 mm[Hg] Alpesh Cheneylla DO Work Phone: [employer] 05-21-2023 10:32-0400 Diastolic blood pressure 68 mm[Hg] Alpesh Cheneylla DO Work Phone: [employer] 05-21-2023 10:32-0400 Heart rate 88 /min Alpesh Parksa DO Work Phone: [employer] 05-21-2023 10:32-0400 Systolic blood pressure 146 mm[Hg] Alpesh Marroquin DO Work Phone: [facility] 05-21-2023 09:56-0400 Body height 162.6 cm Alpesh Marroquin DO Work Phone: [facility] 05-21-2023 09:56-0400 Body mass index (BMI) [Ratio] 31.76 kg/m2 Alpesh Marroquin DO Work Phone: [facility] 05-21-2023 09:56-0400 Body temperature 97 [degF] Alpesh Marroquin DO Work Phone: [facility] 05-21-2023 09:56-0400 Body weight 83.92 kg Alpesh Marroquin DO Work Phone: [facility] 05-21-2023 09:56-0400 SaO2% (BldA) [Mass fraction] 98 % Alpesh Marroquin DO Work Phone: [facility] 05-15-2023 13:48-0400 Body height 162.6 cm Ayaan Lara MD Work Phone: [facility] 05-15-2023 13:48-0400 Body mass index (BMI) [Ratio] 31.4 kg/m2 Ayaan Lara MD Work Phone: [facility] 05-15-2023 13:48-0400 Body weight 83.01 kg Ayaan Lara MD Work Phone: [facility] 05-15-2023 13:48-0400 Diastolic blood pressure 68 mm[Hg] Ayaan Lara MD Work Phone: [facility] 05-15-2023 13:48-0400 Heart rate 83 /min Ayaan Lara MD Work Phone: [facility] 05-15-2023 13:48-0400 Respiratory rate 14 /min Ayaan Lara MD Work Phone: [facility] 05-15-2023 13:48-0400 SaO2% (BldA) [Mass fraction] 97 % Ayaan Lara MD Work Phone: [employer] [facility] 05-15-2023 13:48-0400 Systolic blood pressure 128 mm[Hg] Ayaan Lara MD Work Phone: [employer] [facility] 05-02-2023 11:52-0400 Body temperature 98.6 [degF] Oliver Glozman DO Work Phone: [employer] [facility] 05-02-2023 11:52-0400 Diastolic blood pressure 61 mm[Hg] Oliver Glozman DO Work Phone: [employer] 05-02-2023 11:52-0400 Heart rate 78 /min Oliver Glozman DO Work Phone: [employer] [facility] 05-02-2023 11:52-0400 Respiratory rate 16 /min Oliver Glozman DO Work Phone: [employer] 05-02-2023 11:52-0400 SaO2% (BldA) [Mass fraction] 94 % Oliver Glozman DO Work Phone: [employer] [facility] 05-02-2023 11:52-0400 Systolic blood pressure 132 mm[Hg] Oliver Glozman DO Work Phone: [facility] 05-02-2023 11:37-0400 Body height 162.6 cm Oliver Glozman DO Work Phone: [employer] [facility] 05-02-2023 11:37-0400 Body mass index (BMI) [Ratio] 30.38 kg/m2 Oliver Glozman DO Work Phone: [employer] [facility] 05-02-2023 11:37-0400 Body weight 80.29 kg Oliver Glozman DO Work Phone: [employer] [facility] 05-01-2023 07:30-0400 Body height 161.3 cm Alpesh Marroquin DO Work Phone: [employer] [facility] 05-01-2023 07:30-0400 Body mass index (BMI) [Ratio] 31.56 kg/m2 Alpesh Marroquin DO Work Phone: [facility] 05-01-2023 07:30-0400 Body temperature 97.3 [degF] Alpesh Marroquin DO Work Phone: [facility] 05-01-2023 07:30-0400 Body weight 82.1 kg Alpesh Marroquin DO Work Phone: [facility] 05-01-2023 07:30-0400 Diastolic blood pressure 72 mm[Hg] Alpesh Parksa DO Work Phone: [facility] 05-01-2023 07:30-0400 Heart rate 91 /min Alpesh Marroquin DO Work Phone: [facility] 05-01-2023 07:30-0400 SaO2% (BldA) [Mass fraction] 95 % Alpesh Marroquin DO Work Phone: [facility] 05-01-2023 07:30-0400 Systolic blood pressure 138 mm[Hg] Alpesh Marroquin DO Work Phone: [facility] 04-07-2023 13:43-0500 Body height 160 cm Alpesh Marroquin DO Work Phone: [facility] 04-07-2023 13:43-0500 Body mass index (BMI) [Ratio] 32.42 kg/m2 Alpesh Marroquin DO Work Phone: [facility] 04-07-2023 13:43-0500 Body temperature 97.3 [degF] Alpesh Marroquin DO Work Phone: [facility] 04-07-2023 13:43-0500 Body weight 83.01 kg Alpesh Marroquin DO Work Phone: [facility] 04-07-2023 13:43-0500 Diastolic blood pressure 60 mm[Hg] Alpesh Parksa DO Work Phone: [facility] 04-07-2023 13:43-0500 Heart rate 76 /min Alpesh Marroquin DO Work Phone: [facility] 04-07-2023 13:43-0500 SaO2% (BldA) [Mass fraction] 98 % Alpesh Marroquin DO Work Phone: [facility] 04-07-2023 13:43-0500 Systolic blood pressure 110 mm[Hg] Alpesh Marroquin DO Work Phone: [facility] 02-10-2023 17:37-0500 Diastolic blood pressure 84 mm[Hg] Homar Alston MD Work Phone: [facility] 02-10-2023 17:37-0500 Heart rate 86 /min Homar Alston MD Work Phone: [facility] 02-10-2023 17:37-0500 Respiratory rate 14 /min Homar Alston MD Work Phone: [facility] 02-10-2023 17:37-0500 SaO2% (BldA) [Mass fraction] 98 % Homar Alston MD Work Phone: [facility] 02-10-2023 17:37-0500 Systolic blood pressure 136 mm[Hg] Homar Alston MD Work Phone: [facility] 02-10-2023 16:23-0500 Body mass index (BMI) [Ratio] 32.77 kg/m2 Homar Alston MD Work Phone: [facility] 02-10-2023 16:23-0500 Body temperature 98.49 [degF] Homar Alston MD Work Phone: [facility] 02-10-2023 16:23-0500 Body weight 83.92 kg Homar Alston MD Work Phone: [facility] 01-13-2023 11:35-0500 Body height 160 cm Harry Serrano DO Work Phone: [employer] [facility] 01-13-2023 11:35-0500 Body mass index (BMI) [Ratio] 33.48 kg/m2 Harry Maggie DO Work Phone: [employer] [facility] 01-13-2023 11:35-0500 Body temperature 98.01 [degF] Harry Maggie DO Work Phone: [employer] 01-13-2023 11:35-0500 Body weight 85.73 kg Harry Maggie DO Work Phone: [employer] [facility] 01-13-2023 11:35-0500 Diastolic blood pressure 71 mm[Hg] Harry Maggie DO Work Phone: [facility] 01-13-2023 11:35-0500 Heart rate 68 /min Harry Maggie DO Work Phone: [employer] [facility] 01-13-2023 11:35-0500 SaO2% (BldA) [Mass fraction] 98 % Harry Maggie DO Work Phone: [facility] 01-13-2023 11:35-0500 Systolic blood pressure 159 mm[Hg] Harry Maggie DO Work Phone: [facility] 10-07-2022 08:28-0400 Body height 160 cm Harry Maggie DO Work Phone: [employer] [facility] 10-07-2022 08:28-0400 Body mass index (BMI) [Ratio] 32.58 kg/m2 Harry Maggie DO Work Phone: [employer] [facility] 10-07-2022 08:28-0400 Body temperature 97.7 [degF] Harry Maggie DO Work Phone: [facility] 10-07-2022 08:28-0400 Body weight 83.42 kg Harry Maggie DO Work Phone: [employer] [facility] 10-07-2022 08:28-0400 Diastolic blood pressure 70 mm[Hg] Harry Maggie DO Work Phone: [employer] [facility] 10-07-2022 08:28-0400 Heart rate 62 /min Harry Maggie DO Work Phone: [facility] 10-07-2022 08:28-0400 SaO2% (BldA) [Mass fraction] 97 % Harry Serrano DO Work Phone: [facility] 10-07-2022 08:28-0400 Systolic blood pressure 143 mm[Hg] Harry Serrano DO Work Phone: [facility] 09-03-2022 08:04-0400 Body height 161.3 cm Alpesh Marroquin DO Work Phone: [facility] 09-03-2022 08:04-0400 Body mass index (BMI) [Ratio] 32.08 kg/m2 Alpesh Marroquin DO Work Phone: [facility] 09-03-2022 08:04-0400 Body temperature 97.5 [degF] Alpesh Marroquin DO Work Phone: [facility] 09-03-2022 08:04-0400 Body weight 83.46 kg Alpesh Marroquin DO Work Phone: [facility] 09-03-2022 08:04-0400 Diastolic blood pressure 64 mm[Hg] Alpesh Marroquin DO Work Phone: [facility] 09-03-2022 08:04-0400 Heart rate 60 /min Alpesh Marroquin DO Work Phone: [facility] 09-03-2022 08:04-0400 SaO2% (BldA) [Mass fraction] 98 % Alpesh Marroquin DO Work Phone: [facility] 09-03-2022 08:04-0400 Systolic blood pressure 116 mm[Hg] Alpesh Marroquin DO Work Phone: [facility] 07-16-2022 08:58-0400 Body height 160.[address] Alpesh Marroquin Work Phone: [facility] 07-16-2022 08:58-0400 Diastolic blood pressure 70 mm[Hg] Dr. Alpesh Marroquin Work Phone: [facility] 07-16-2022 08:58-0400 Heart rate 64 /min Dr. Alpesh Marroquin Work Phone: [facility] 07-16-2022 08:58-0400 SaO2% (BldA) [Mass fraction] 95 % Dr. Alpesh Marroquin Work Phone: [facility] 07-16-2022 08:58-0400 Systolic blood pressure 163 mm[Hg] Dr. Alpesh Marroquin Work Phone: [facility] 06-19-2022 12:43-0400 Body temperature 96.8 [degF] Dr. Alpesh Marroquin Work Phone: [facility] 06-19-2022 12:43-0400 Diastolic blood pressure 38 mm[Hg] Dr. Alpesh Marroquin Work Phone: [facility] 06-19-2022 12:43-0400 Heart rate 59 /min Dr. Alpesh Marroquin Work Phone: [facility] 06-19-2022 12:43-0400 Respiratory rate 16 /min Dr. Alpesh Marroquin Work Phone: [facility] 06-19-2022 12:43-0400 SaO2% (BldA) [Mass fraction] 97 % Dr. Alpesh Marroquin Work Phone: [facility] 06-19-2022 12:43-0400 Systolic blood pressure 117 mm[Hg] Dr. Alpesh Marroquin Work Phone: [facility] 06-19-2022 10:47-0400 Body height 160.[address] Alpesh Marroquin Work Phone: [facility] 06-19-2022 10:47-0400 Body mass index (BMI) [Ratio] 32.4 kg/m2 Dr. Alpesh Marroquin Work Phone: [facility] 06-19-2022 10:47-0400 Body weight [address] Alpesh Marroquin Work Phone: [facility] 04-11-2022 08:02-0500 Body height 160.[address] Alpesh Marroquin Work Phone: [facility] 04-11-2022 08:02-0500 Body mass index (BMI) [Ratio] 32.1 kg/m2 Dr. Alpesh Marroquin Work Phone: [facility] 04-11-2022 08:02-0500 Body weight 82.[address] Alpesh Marroquin Work Phone: [facility] 04-11-2022 08:02-0500 Diastolic blood pressure 78 mm[Hg] Dr. Alpesh Marroquin Work Phone: [facility] 04-11-2022 08:02-0500 Heart rate 68 /min Dr. Alpesh Marroquin Work Phone: [facility] 04-11-2022 08:02-0500 SaO2% (BldA) [Mass fraction] 98 % Dr. Alpesh Marroquin Work Phone: [facility] 04-11-2022 08:02-0500 Systolic blood pressure 144 mm[Hg] Dr. Alpesh Marroquin Work Phone: [facility] 03-06-2022 08:09-0500 Body height 161.3 cm Alpesh Marroquin DO Work Phone: [facility] 03-06-2022 08:09-0500 Body mass index (BMI) [Ratio] 31.07 kg/m2 Alpesh Marroquin DO Work Phone: [facility] 03-06-2022 08:09-0500 Body temperature 98.1 [degF] Alpesh Marroquin DO Work Phone: [facility] 03-06-2022 08:09-0500 Body weight 80.83 kg Alpesh Marroquin DO Work Phone: [facility] 03-06-2022 08:09-0500 Diastolic blood pressure 64 mm[Hg] Alpesh Marroquin DO Work Phone: [facility] 03-06-2022 08:09-0500 Heart rate 54 /min Alpesh Marroquin DO Work Phone: [facility] 03-06-2022 08:09-0500 SaO2% (BldA) [Mass fraction] 100 % Alpesh Marroquin DO Work Phone: [facility] 03-06-2022 08:09-0500 Systolic blood pressure 115 mm[Hg] Alpesh Marroquin DO Work Phone: [facility] Encounters Encounter Date Encounter Type Care Provider Facility Start: 11-10-2024 ambulatory Chapin Underwood Facility :[facility] Start: 10-06-2024 End: 10-06-2024 ambulatory Harry E Maggie DO Work Phone: [facility] Comment on above: Iron deficiency anem ia, unspecified iron deficiency anemia type (Primary Dx); Steatorrhea Start: 09-29-2024 End: 09-29-2024 ambulatory Harry E Maggie DO Work Phone: [facility] Comment on above: Iron deficiency anem ia, unspecified iron deficiency anemia type (Primary Dx); Steatorrhea Start: 09-27-2024 End: 09-27-2024 Patient encounter procedure Iman SMITH [facility] Work Phone: Start: 09-27-2024 End: 09-27-[address] Alpesh Marroquin DO Work Phone: [facility] Start: 09-27-2024 End: 09-27-2024 ambulatory Iman Grullon Facility:[facility] Start: 09-22-2024 End: 09-22-2024 ambulatory Harry E Maggie DO Work Phone: [facility] Comment on above: Iron deficiency anem ia, unspecified iron deficiency anemia type (Primary Dx); Steatorrhea Start: 09-09-2024 End: 09-09-2024 Orders Only Lisbeth Mejia [facility] Start: 09-08-2024 End: 09-08-2024 Office outpatient visit 25 minutes Harry E Magige DO Work Phone: [facility] Comment on above: Iron deficiency anem ia due to chronic blood loss (Primary Dx); Vitamin B12 deficiency; MGUS (monoclonal gammopathy of unknown significance); Pulmonary embolism, other, unspecified chronicity, unspecified whether acute cor pulmonale present (HCC) Start: 09-08-2024 End: 09-08-2024 Orders Only Lisbeth Mejia [facility] Start: 08-26-2024 End: 10-26-2024 Follow-up encounter Harry Serrano DO Work Phone: [facility] Comment on above: CBC auto differentia l, Iron and TIBC, Ferritin, Additional followed-up results: 3 Start: 08-25-2024 End: 08-25-2024 ambulatory Harry Radha Serrano DO Work Phone: [facility] Comment on above: Arrived Start: 07-26-2024 End: 07-26-2024 Office outpatient visit 25 minutes Harry Radha Serrano DO Work Phone: [facility] Comment on above: Iron deficiency anem ia due to chronic blood loss (Primary Dx); Vitamin B12 deficiency; MGUS (monoclonal gammopathy of unknown significance) Start: 07-26-2024 End: 07-26-2024 ambulatory HARRY Radha SERRANO [facility] Start: 07-24-2024 End: 07-24-2024 Orders Only Alpesh [facility]quin DO [facility] Comment on above: Elevated serum creat inine (Primary Dx) Start: 07-19-2024 End: 09-13-2024 Orders Only Alpesh Mar[facility]quin DO [facility] Comment on above: Pulmonary embolism w ith acute cor pulmonale, unspecified chronicity, unspecified pulmonary embolism type (HCC) Medication Question Start: 07-18-2024 End: 07-18-2024 Refill Ayaan Lara MD Work Phone: [facility] Comment on above: Pulmonary embolism w ith acute cor pulmonale, unspecified chronicity, unspecified pulmonary embolism type (HCC) (Primary Dx) Start: 07-17-2024 End: 09-16-2024 Follow-up encounter Alpesh Kathleen Marroquin DO Work Phone: [facility] Comment on above: AMB POC GLUCOSE TEST , CBC auto differential, Basic metabolic panel, Cardiac event monitor (14 days) Start: 07-12-2024 End: 07-12-2024 Office outpatient visit 10 minutes Sada Mace PA-C Work Phone: [facility] Comment on above: Type 2 diabetes kadeem itus with hyperglycemia, without long-term current use of insulin (HCC) (Primary Dx) Start: 07-12-2024 End: 07-12-2024 ambulatory [facility] Start: 07-05-2024 End: 07-05-2024 Refill Alpesh Marroquin DO Work Phone: [facility] Start: 06-30-2024 End: 06-30-2024 Subsequent hospital visit by physician Sada Mace PA-C Work Phone: [facility] Comment on above: Syncope, unspecified syncope type Start: 06-30-2024 End: 06-30-2024 ambulatory [facility] Start: 06-14-2024 End: 06-14-2024 Telephone encounter Alpesh Marroquin DO Work Phone: [facility] Comment on above: Referral (Dr Serrano) Start: 06-14-2024 End: 06-14-2024 Office outpatient visit 25 minutes Sada Mace PA-C Work Phone: [facility] Comment on above: Type 2 diabetes kadeem itus without complication, without long- term current use of insulin (HCC) (Primary Dx); Syncope, unspecified syncope type Start: 06-14-2024 End: 06-14-2024 ambulatory [facility] Start: 06-13-2024 End: 06-13-2024 ambulatory Yumiko Riley RN [facility] Start: 06-13-2024 End: 06-13-2024 Patient encounter procedure Yumiko Riley RN [facility] Start: 06-10-2024 End: 06-10-2024 Emergency department patient visit Dr. Kendrick Agosto -Emergency Department Work Phone: Start: 06-07-2024 End: 06-07-2024 ambulatory [facility] Start: 06-07-2024 End: 06-07-2024 Office outpatient visit 25 minutes Sada Mace PA-C Work Phone: [facility] Comment on above: Type 2 diabetes kadeem itus without complication, without long- term current use of insulin (HCC) (Primary Dx) Start: 06-07-2024 End: 06-07-2024 ambulatory SADA MACE [facility] Start: 06-06-2024 End: 06-06-2024 ambulatory Carrie Ledesma RN [facility] Start: 06-06-2024 End: 06-06-2024 Patient encounter procedure Carrie Ledesma RN [facility] Start: 06-05-2024 End: 06-05-2024 Orders Only Alpesh Kathleen Lopez DO Work Phone: [facility] Comment on above: Anemia, unspecified type (Primary Dx) Start: 05-30-2024 End: 05-30-2024 Refill Alpesh Kathleen Lopez DO Work Phone: [facility] Start: 05-30-2024 End: 05-30-2024 ambulatory ALPESH [facility] Start: 05-29-2024 End: 05-29-2024 Orders Only Alpesh Wang Lopez DO Work Phone: [facility] Comment on above: Normochromic normocy tic anemia (Primary Dx) Start: 05-26-2024 End: 05-26-2024 Telephone encounter Alpesh Kathleen Lopez DO Work Phone: [facility] Comment on above: Referral ([facility] Start: 05-25-2024 End: 05-25-2024 Office outpatient visit 25 minutes Alpesh Marroquin DO Work Phone: [facility] Comment on above: Type 2 diabetes kadeem itus without complication, without long- term current use of insulin (HCC) (Primary Dx); Essential hypertension; Pulmonary embolism, other, unspecified chronicity, unspecified whether acute cor pulmonale present (HCC); Hypercholesterolemia; Gastroesophageal reflux disease with esophagitis without hemorrhage; Other iron deficiency anemia; Diarrhea due to malabsorption Start: 05-25-2024 End: 05-25-2024 Orders Only Alpesh Marroquin DO Work Phone: [facility] Comment on above: Diarrhea, unspecifie d type (Primary Dx) Start: 04-05-2024 End: 04-05-2024 Refill Ayaan Lara MD Work Phone: [facility] [place] Start: 03-01-2024 End: 03-01-2024 Clinical Support [facility] Comment on above: Essential hypertensi on Start: 02-27-2024 End: 02-29-2024 Refill Alpesh Marroquin DO Work Phone: [facility] Start: 01-26-2024 End: 01-26-2024 Office outpatient visit 25 minutes Alpesh Marroquin DO Work Phone: [facility] Comment on above: Type 2 diabetes kadeem itus without complication, without long- term current use of insulin (CMS/HCC) (HCC) (Primary Dx); Essential hypertension; Pulmonary embolism, other, unspecified chronicity, unspecified whether acute cor pulmonale present (HCC); Hypercholesterolemia; Post-cholecystectomy syndrome; Anemia, unspecified type Start: 01-26-2024 End: 01-26-2024 ambulatory ALPESH [facility] Start: 12-03-2023 End: 12-03-2023 Office outpatient visit 25 minutes Ayaan Lara MD Work Phone: [facility] [place] Comment on above: Pulmonary embolism, other, unspecified chronicity, unspecified whether acute cor pulmonale present (HCC) (Primary Dx) Start: 12-03-2023 End: 12-03-2023 ambulatory [facility] Start: 11-17-2023 End: 11-17-2023 Subsequent hospital visit by physician Ayaan Lara MD Work Phone: [facility] Comment on above: Shortness of breath; Other acute pulmonary embolism without acute cor pulmonale (HCC) Start: 11-17-2023 End: 11-17-2023 ambulatory [facility] Start: 10-07-2023 End: 10-07-2023 Assay of hemosiderin, quant Alpesh Kathleen Lopez CORRALES Work Phone: [facility] Start: 10-07-2023 End: 10-07-2023 Patient encounter procedure Alpesh Kathleen Lopez CORRALES Work Phone: [facility] Comment on above: Encounter for subs uent annual wellness visit (AWV) in Medicare patient (Primary Dx); Post-cholecystectomy syndrome; Essential hypertension; Type 2 diabetes mellitus without complication, without long-term current use of insulin ([facility]/HCC) (HCC); Pulmonary embolism, other, unspecified chronicity, unspecified whether acute cor pulmonale present (HCC); Acute deep vein thrombosis (DVT) of proximal vein of right lower extremity (HCC); Hyperlipidemia, unspecified hyperlipidemia type; Gastroesophageal reflux disease with esophagitis without hemorrhage; Routine general medical examination at health care facility Start: 09-28-2023 End: 09-28-2023 Refill Alpesh Kathleen Lopez CORRALES Work Phone: [facility] Medicine Start: 09-27-2023 End: 09-28-2023 Refill Alpesh Kathleen Lopez CORRALES Work Phone: [facility] Start: 08-27-2023 End: 08-27-2023 Refill Alpesh Marroquin DO Work Phone: [facility] Start: 07-28-2023 Refill Alpesh cochran DO Work Phone: [facility] Start: 05-21-2023 End: 05-21-2023 Office outpatient visit 25 minutes Alpesh Marroquin DO Work Phone: [facility] Comment on above: Other acute pulmonar y embolism without acute cor pulmonale (HCC) (Primary Dx); Essential hypertension; Type 2 diabetes mellitus without complication, without long-term current use of insulin (CMS/HCC) (HCC); Gastroesophageal reflux disease with esophagitis without hemorrhage; Anemia, unspecified type Start: 05-15-2023 End: 05-15-2023 Office outpatient visit 25 minutes Ayaan Lara MD Work Phone: [facility] Pulmonary and Sleep Medicine Comment on above: Shortness of breath (Primary Dx); Other acute pulmonary embolism without acute cor pulmonale (HCC) Start: 05-01-2023 End: 05-02-2023 Emergency department patient visit Oliver Saenz DO Work Phone: [facility] Cardiac Progressive Care Unit PCU 2E Comment on above: Single subsegmental pulmonary embolism without acute cor pulmonale (HCC) (Primary Dx); PE (pulmonary thromboembolism) (HCC); Acute deep vein thrombosis (DVT) of popliteal vein of right lower extremity (HCC); Shortness of breath Start: 05-01-2023 End: 07-04-2024 Documentation procedure Alpesh Marroquin DO Work Phone: [facility] Start: 05-01-2023 Telephone encounter Alpesh mcpherson DO Work Phone: [facility] Family Medicine Comment on above: Orders (CT Chest) Start: 05-01-2023 End: 05-01-2023 Subsequent hospital visit by physician Alpesh Marroquin DO Work Phone: [facility] CT Comment on above: ADAMSON (dyspnea on exer tion) Start: 05-01-2023 End: 05-01-2023 Office outpatient visit 15 minutes Alpesh Marroquin DO Work Phone: [facility] Medicine Comment on above: ADAMSON (dyspnea on exer tion) (Primary Dx); Diabetes due to undrl condition w oth diabetic neuro comp (HCC); Essential hypertension Start: 04-08-2023 Refill Alpesh cochran DO Work Phone: [facility] Start: 04-07-2023 End: 04-07-2023 Office outpatient visit 25 minutes Alpesh Marroquin DO Work Phone: [facility] Comment on above: Type 2 diabetes kadeem itus without complication, without long- term current use of insulin ([facility]/HCC) (HCC) (Primary Dx); Essential hypertension; Other iron deficiency anemia; Post-cholecystectomy syndrome; Simple chronic bronchitis ([facility]); Iron deficiency anemia, unspecified iron deficiency anemia type Start: 04-01-2023 Refill Alpesh cochran DO Work Phone: [facility] Clinical Communication Start: 03-01-2023 Refill Alpesh cochran DO Work Phone: [facility] Clinical Communication Start: 02-10-2023 End: 02-10-2023 Subsequent hospital visit by physician [facility] Port[facility] Radiology Comment on above: Arrived Start: 02-10-2023 End: 02-10-2023 Emergency department patient visit Homar Alston MD Work Phone: [facility] ED Comment on above: Viral URI (Primary D x) Start: 01-13-2023 End: 01-13-2023 Office outpatient visit 25 minutes Harry Serrano DO Work Phone: [facility] Oncology Comment on above: Iron deficiency anem ia due to chronic blood loss (Primary Dx) Start: 10-08-2022 Telephone encounter Harry rios DO Work Phone: [facility] Oncology Comment on above: Results Start: 10-07-2022 End: 10-07-2022 Office outpatient new 60 minutes Harry Radha MoralesMaggie DO Work Phone: [facility] Oncology Comment on above: Iron deficiency anem ia due to chronic blood loss (Primary Dx) Start: 09-23-2022 Telephone encounter Alpesh mcpherson DO Work Phone: [facility] Medicine Comment on above: Referral Start: 09-11-2022 Telephone encounter Alpesh mcpherson DO Work Phone: [facility] Comment on above: Referral [place] Start: 09-03-2022 End: 09-03-2022 Office outpatient visit 25 minutes Alpesh Marroquin DO Work Phone: [facility] Comment on above: Type 2 diabetes kadeem itus without complication, without long- term current use of insulin (CMS/HCC) (HCC) (Primary Dx); Essential hypertension; AVM (arteriovenous malformation) of colon; Adrenal adenoma, left; Gastroesophageal reflux disease with esophagitis without hemorrhage; Lumbar disc disease; Hypercholesterolemia Type 2 diabetes kadeem itus without complication, without long-term current use of insulin (CMS/HCC) (HCC) (Primary Dx); Essential hypertension; AVM (arteriovenous malformation) of colon; Adrenal adenoma, left; Gastroesophageal reflux disease with esophagitis without hemorrhage; Lumbar disc disease; Hypercholesterolemia; Iron deficiency anemia, unspecified iron deficiency anemia type Start: 07-16-2022 End: 07-16-[address] Alpesh Marroquin Work Phone: [facility] Work Phone: Start: 07-16-2022 End: 07-16-[address] Alpesh Marroquin Work Phone: [facility] Gastroenterology Work Phone: Start: 07-15-2022 Refill Alpesh cochran DO Work Phone: [facility] Start: 06-19-2022 Non-patient / Non-visit Dr. Oscar Marroquin Work Phone: [facility] Start: 06-19-2022 End: 06-19-2022 Admission to same day surgery center Dr. Alpesh Marroquin Work Phone: [facility]-Endoscopy Start: 06-19-2022 End: 06-19-[address] Alpesh Marroquin Work Phone: [facility] Work Phone: Start: 06-18-2022 Refill Alpesh cochran DO Work Phone: [facility] Medicine Start: 04-17-2022 End: 04-17-[address] Alpesh Marroquin Work Phone: [facility] Work Phone: Start: 04-17-2022 End: 04-17-[address] Alpesh Marroquin Work Phone: [facility] Start: 04-14-2022 Refill Alpesh cochran DO Work Phone: [facility] Start: 04-12-2022 End: 04-12-[address] Alpesh Marroquin Work Phone: [facility] Work Phone: Start: 04-12-2022 End: 04-12-[address] Alpesh Marroquin Work Phone: [facility]-Laboratory, Specimen Start: 04-11-2022 End: 04-11-[address] Alpesh Marroquin Work Phone: [facility] Work Phone: Start: 04-11-2022 End: 04-11-[address] Alpesh Marroquin Work Phone: [facility]-Laboratory Start: 04-11-2022 End: 04-11-[address] Alpesh Marroquin Work Phone: [facility] Gastroenterology Start: 03-20-2022 Telephone encounter Alpesh mpcherson DO Work Phone: [facility] Comment on above: Referral (Dr Frost) Start: 03-09-2022 Orders Only Alpesh cochran DO Work Phone: [facility] Comment on above: Hypochromic anemia ( Primary Dx) Start: 03-06-2022 End: 03-06-2022 Office outpatient visit 25 minutes Alpesh Marroquin DO Work Phone: [facility] Comment on above: Type 2 diabetes kadeem itus without complication, without long- term current use of insulin (CMS/HCC) (HCC) (Primary Dx); Essential hypertension; Gastroesophageal reflux disease with esophagitis without hemorrhage; B12 deficiency; Hypercholesterolemia Start: 02-26-2022 Refill Alpesh cochran DO Work Phone: [facility] Start: 02-24-2022 Telephone encounter Alpesh mcpherson DO Work Phone: [facility] Comment on above: Covid Screened Start: 05-22-2021 End: 05-22-2021 Subsequent hospital visit by physician Martha Rouse NP Work Phone: [facility] Comment on above: Pain in left leg; Other specified soft tissue disorders; Pain and swelling of lower extremity, left Start: 04-26-2020 End: 04-26-2020 Discharged Recurring [facility]-Immun[facility] Procedures Date Procedure Procedure Detail Performing Clinician Start: 07-12-2024 Adult depression scr eening assessment Sada Mace PA-C Work Phone: Start: 06-14-2024 Glucose post glucose dose Sada Mace PA-C Work Phone: Start: 06-10-2024 Urnls dip stick/tabl et reagent auto microscopy Dr. Alpesh Marroquin DO Work Phone: Start: 06-10-[address] Alpesh Marroquin DO Work Phone: Start: 05-25-2024 Adult depression scr eening assessment Alpesh Marroquin DO Work Phone: Start: 11-17-2023 Echo tthrc r-t 2d w/wom-mode compl spec&colr d Ayaan Lara MD Work Phone: Start: 10-07-2023 Adult depression scr eening assessment Alpesh Marroquin DO Work Phone: Start: 05-02-2023 Echo tthrc r-t 2d w/wom-mode compl spec&colr d Vanessa Byrnes MD Work Phone: Start: 05-02-2023 Glucose quantitative blood xcpt reagent strip Vanessa Byrnes MD Work Phone: Start: 05-02-2023 Glucose quantitative blood xcpt reagent strip Vanessa Byrnes MD Work Phone: Start: 05-02-2023 Comprehensive metabo lic panel Vanessa Byrnes MD Work Phone: Start: 05-01-2023 Assay of troponin quantitative Vanessa Byrnes MD Work Phone: Start: 05-01-2023 Dup-scan xtr veins c omplete bilateral study Macrina Victor [employer] ATT[employer]ER - [employer] Work Phone: Start: 05-01-2023 Assay of troponin quantitative Macrina Victor [employer] ATT[employer] - [employer] Work Phone: Start: 05-01-2023 Ecg routine ecg w/le ast 12 lds trcg only w/o i&r Tomas Reaves MD Work Phone: Start: 05-01-2023 Natriuretic peptide Mariah l Eliot Reaves MD Work Phone: Start: 05-01-2023 Ct angiography chest w/contrast/noncontrast Alpesh Marroquin DO Work Phone: Start: 05-01-2023 Ecg routine ecg w/le ast 12 lds w/i&r Alpesh Marroquin DO Work Phone: Start: 02-10-2023 Radiologic exam ches t single view Homar Alston MD Work Phone: Start: 02-10-2023 SARS-COV-2, FLU A/B, AND RSV COMBO Homar Alston MD Work Phone: Start: 02-10-2023 Ecg routine ecg w/le ast 12 lds trcg only w/o i&r Homar Alston MD Work Phone: Start: 09-03-2022 Complete blood count with white cell differential, automated Alpesh Kathleen Lopez DO Work Phone: Start: 09-03-2022 Comprehensive metabo lic panel Alpesh Wang Lopez DO Work Phone: Start: 09-03-2022 Lipid panel Alpesh Kathleen Lopez etrilllayne DO Work Phone: Start: 09-03-2022 Lipid 1996 panel - S jinny or Plasma Alpesh Marroquin DO Work Phone: Start: 06-19-2022 End: 06-19-[address] Alpesh Marroquin Work Phone: Start: 04-17-2022 Computed tomography of abdomen and pelvis with contrast Dr. Alpesh Marroquin Work Phone: Start: 03-06-2022 Urine albumin quantitative Alpesh Marroquin DO Work Phone: Start: 03-06-2022 Lipid 1996 panel - S jinny or Plasma Alpesh Marroquin DO Work Phone: Start: 08-21-2021 Lipid 1996 panel - S jinny or Plasma Alpesh Marroquin DO Work Phone: Start: 05-22-2021 Dup-scan xtr veins unilateral/limited study Martha Trivedi TOP STOP ATTACHER - [employer] MANAGER Work Phone: Start: 09-18-2020 Mammography Alpesh Pet rilla DO Work Phone: Start: 06-21-2018 Colonoscopy Martha Trivedi APRN - [employer]AIL DISTRICT MANAGER Work Phone: Clostridium difficil e detection Dr. Alpesh Marroquin Work Phone: Enteric Bacteriology Dr. Rashi Marroquin Work Phone: Lactoferrin measurement Dr. Alpesh Marroquin Work Phone: Plan of Treatment Date Care Activity Detail Author Start: 06-19-2032 Screening for malignant neoplasm of colon [facility] Start: 06-21-2028 [facility] Start: 07-12-2025 Depression Screening Depression Screening [facility] Start: 07-12-2025 Diabetes: Estimated Glomerular Filtration Rate for Kidney Health Diabetes: Estimated Glomerular Filtration Rate for Kidney Health [facility] Start: 05-25-2025 Depression Screening Depression Screening [facility] Start: 05-25-2025 Diabetes: Estimated Glomerular Filtration Rate for Kidney Health Diabetes: Estimated Glomerular Filtration Rate for Kidney Health [facility] Start: 03-17-2025 Glaucoma screening Diabetes: Retinopathy Screening [facility] Start: 01-25-2025 Diabetes: Estimated Glomerular Filtration Rate for Kidney Health Diabetes: Estimated Glomerular Filtration Rate for Kidney Health [facility] Start: 12-15-2024 End: 12-15-2024 Patient encounter procedure 12/15/2024 11:00 AM EDT Office Visit [facility] Oncology [facility] [address] [place] [address] Harry Serrano DO [address] [place] [address] [facility] [place] Start: 12-09-2024 End: 09-08-2025 CBC W Auto Differential panel - Blood CBC auto differential Lab Routine Iron deficiency anemia due to chronic blood loss Expected: 12/09/2024 (Approximate), Expires: 09/08/2025 [facility] [facility] Work Phone: Comment on above: Expected: 12/09/2024 (Approximate), Expi res: 09/08/2025 Start: 12-09-2024 End: 09-08-2025 Ferritin [Mass/volume] in Serum or Plasma Ferritin Lab Routine Iron deficiency anemia due to chronic blood loss Expected: 12/09/2024 (Approximate), Expires: 09/08/2025 [facility] Comment on above: Expected: 12/09/2024 (Approximate), Expi res: 09/08/2025 Start: 12-09-2024 End: 09-08-2025 Iron and Iron binding capacity panel - Serum or Plasma Iron and TIBC Lab Routine Iron deficiency anemia due to chronic blood loss Expected: 12/09/2024 (Approximate), Expires: 09/08/2025 [facility] Comment on above: Expected: 12/09/2024 (Approximate), Expi res: 09/08/2025 Start: 11-23-2024 End: 11-23-2024 Patient encounter procedure 11/23/2024 9:40 AM EDT Office Visit [facility] [place] [address] [place] [address] Alpesh Marroquin DO [address] [place] [address] [place] [address] [facility] Start: 10-17-2024 COVID-19 Vaccine ( season) COVID-19 Vaccine ( season) [facility] Start: 10-17-2024 Influenza vaccination Influenza Vaccine (#1) [facility] Start: 10-10-2024 End: 10-10-2024 Patient encounter procedure 10/10/2024 11:20 AM EDT Office Visit [facility] [place] [address] [place] [address] Alpesh Marroquin DO [address] [place] [address] [facility] Start: 10-06-2024 Depression Screening Depression Screening [facility] Start: 10-06-2024 End: 10-06-2024 ambulatory 10/06/2024 11:00 AM EDT Infusion [facility] [address] [place] [address] Harry Serrano, DO [address] [place] [address] [facility] Start: 09-29-2024 End: 09-29-2024 ambulatory 09/29/2024 10:00 AM EDT Infusion [facility] [address] [place] [address] Harry Serrano, DO [address] [place] [address] [facility] Start: 09-22-2024 End: 09-22-2024 ambulatory 09/22/2024 11:00 AM EDT Infusion [facility] [address] [place] [address] Harry eSrrano, DO [address] [place] [address] [facility] Start: 09-08-2024 End: 09-08-2024 Patient encounter procedure 09/08/2024 10:30 AM EDT Office Visit [facility] On[facility] [address] [place] [phone] Harry Serrano, DO [address] [place] [address] [facility] [place] Start: 09-06-2024 End: 07-26-2025 CBC W Auto Differential panel - Blood CBC auto differential Lab Routine Iron deficiency anemia due to chronic blood loss Vitamin B12 deficiency MGUS (monoclonal gammopathy of unknown significance) Expected: 09/06/2024 (Approximate), Expires: 07/26/2025 [facility] Work Phone: Comment on above: Expected: 09/06/2024 (Approximate), Expi res: 07/26/2025 Start: 09-06-2024 End: 07-26-2025 Cobalamin (Vitamin B12) [Mass/volume] in Serum or Plasma Vitamin B12 Lab Routine Iron deficiency anemia due to chronic blood loss Vitamin B12 deficiency MGUS (monoclonal gammopathy of unknown significance) Expected: 09/06/2024 (Approximate), Expires: 07/26/2025 [facility] [facility] Comment on above: Expected: 09/06/2024 (Approximate), Expi res: 07/26/2025 Start: 09-06-2024 End: 07-26-2025 Comprehensive metabolic 1998 panel - Serum or Plasma Comprehensive metabolic panel Lab Routine Iron deficiency anemia due to chronic blood loss Vitamin B12 deficiency MGUS (monoclonal gammopathy of unknown significance) Expected: 09/06/2024 (Approximate), Expires: 07/26/2025 [facility] Comment on above: Expected: 09/06/2024 (Approximate), Expi res: 07/26/2025 Start: 09-06-2024 End: 07-26-2025 Ferritin [Mass/volume] in Serum or Plasma Ferritin Lab Routine Iron deficiency anemia due to chronic blood loss Vitamin B12 deficiency MGUS (monoclonal gammopathy of unknown significance) Expected: 09/06/2024 (Approximate), Expires: 07/26/2025 [facility] Comment on above: Expected: 09/06/2024 (Approximate), Expi res: 07/26/2025 Start: 09-06-2024 End: 07-26-2025 Immunofixation Electrophoresis Immunofixation Electrophoresis Lab Routine Iron deficiency anemia due to chronic blood loss Vitamin B12 deficiency MGUS (monoclonal gammopathy of unknown significance) Expected: 09/06/2024 (Approximate), Expires: 07/26/2025 [facility] Comment on above: Expected: 09/06/2024 (Approximate), Expi res: 07/26/2025 Start: 09-06-2024 End: 07-26-2025 Iron and Iron binding capacity panel - Serum or Plasma Iron and TIBC Lab Routine Iron deficiency anemia due to chronic blood loss Vitamin B12 deficiency MGUS (monoclonal gammopathy of unknown significance) Expected: 09/06/2024 (Approximate), Expires: 07/26/2025 [facility] [employer] Comment on above: Expected: 09/06/2024 (Approximate), Expi res: 07/26/2025 Start: 09-06-2024 End: 07-26-2025 K/L Qnt Free Light Chains with Ratio K/L Qnt Free Light Chains with Ratio Lab Routine Iron deficiency anemia due to chronic blood loss Vitamin B12 deficiency MGUS (monoclonal gammopathy of unknown significance) Expected: 09/06/2024 (Approximate), Expires: 07/26/2025 [facility] Comment on above: Expected: 09/06/2024 (Approximate), Expi res: 07/26/2025 Start: 09-06-2024 End: 07-26-2025 Protein, Total and Protein Electrophoresis Protein, Total and Protein Electrophoresis Lab Routine Iron deficiency anemia due to chronic blood loss Vitamin B12 deficiency MGUS (monoclonal gammopathy of unknown significance) Expected: 09/06/2024 (Approximate), Expires: 07/26/2025 [facility] Comment on above: Expected: 09/06/2024 (Approximate), Expi res: 07/26/2025 Start: 08-25-2024 End: 08-25-2024 ambulatory 08/25/2024 2:00 PM EDT Infusion [facility] [address] [place] [phone] [facility] Start: 08-07-2024 End: 07-24-2025 Basic metabolic 1998 panel - Serum or Plasma Basic metabolic panel Lab Routine Elevated serum creatinine Expected: 08/07/2024 (Approximate), Expires: 07/24/2025 [facility] Work Phone: Comment on above: Expected: 08/07/2024 (Approximate), Expi res: 07/24/2025 Start: 07-26-2024 End: 07-26-2024 Patient encounter procedure 07/26/2024 10:15 AM EDT Office Visit [facility] - [place] [address] [place] [id number] Harry Serrano DO [address] [place] [address] [facility] - [place] Start: 07-18-2024 End: 07-18-2024 Patient encounter procedure 07/18/2024 10:40 AM EDT Office Visit [facility] [place] [address] [place] [address] Sada Mace PA-C [address] [place] [address] [place] [address] [facility] [place] Start: 07-12-2024 End: 07-12-2024 Patient encounter procedure 07/12/2024 11:40 AM EDT [facility] [address] [place] [address] Sada Mace PA-C [address] [place] [address] [facility] Start: 07-07-2024 End: 07-07-2024 Patient encounter procedure 07/07/2024 11:45 AM EDT Office Visit [facility] [address] [place] [id number] Harry Serrano DO [address] [place] [address] [facility] - [place] Start: 06-14-2024 End: 06-14-2025 Basic metabolic 1998 panel - Serum or Plasma Basic metabolic panel Lab Routine Type 2 diabetes mellitus without complication, without long-term current use of insulin (HCC) Syncope, unspecified syncope type Expected: 06/14/2024 (Approximate), Expires: 06/14/2025 [facility] Comment on above: Expected: 06/14/2024 (Approximate), Expi res: 06/14/2025 Start: 06-14-2024 End: 06-14-2026 Cardiac event monitor (14 days) Cardiac event monitor (14 days) [facility] Routine Syncope, unspecified syncope type Expected: 06/14/2024 (Approximate), Expires: 06/14/2026 [facility] Work Phone: Comment on above: Expected: 06/14/2024 (Approximate), Expi res: 06/14/2026 Start: 06-14-2024 End: 06-14-2025 CBC W Auto Differential panel - Blood CBC auto differential Lab Routine Type 2 diabetes mellitus without complication, without long-term current use of insulin (HCC) Syncope, unspecified syncope type Expected: 06/14/2024 (Approximate), Expires: 06/14/2025 [facility] Comment on above: Expected: 06/14/2024 (Approximate), Expi res: 06/14/2025 Start: 06-14-2024 End: 06-14-2024 Patient encounter procedure 06/14/2024 11:20 AM EDT Office Visit [facility] [address] [place] [phone] Sada Mace PA-C [address] [place] [address] [place] [phone] [facility] Start: 06-10-2024 [facility] Start: 06-07-2024 End: 06-07-2024 Patient encounter procedure 06/07/2024 10:40 AM EDT [facility] [address] [place] [phone] Sada Mace PA-C [address] [place] [address] [facility] Start: 06-05-2024 End: 06-05-2025 Immunofixation Electrophoresis Immunofixation Electrophoresis Lab Routine Anemia, unspecified type Expected: 06/05/2024 (Approximate), Expires: 06/05/2025 [facility] Work Phone: Comment on above: Expected: 06/05/2024 (Approximate), Expi res: 06/05/2025 Start: 05-29-2024 End: 05-29-2025 Immunofixation Electrophoresis Immunofixation Electrophoresis Lab Routine Normochromic normocytic anemia Expected: 05/29/2024 (Approximate), Expires: 05/29/[address] [facility] Work Phone: Comment on above: Expected: 05/29/2024 (Approximate), Expi res: 05/29/2025 Start: 05-29-2024 End: 05-29-2025 Immunoglobulins, IgG, IgA, IgM Immunoglobulins, IgG, IgA, IgM Lab Routine Normochromic normocytic anemia Expected: 05/29/2024 (Approximate), Expires: 05/29/[address] [facility] [address] Comment on above: Expected: 05/29/2024 (Approximate), Expi res: 05/29/2025 Start: 05-29-2024 End: 05-29-2025 Protein, Total and Protein Electrophoresis Protein, Total and Protein Electrophoresis Lab Routine Normochromic normocytic anemia Expected: 05/29/2024 (Approximate), Expires: 05/29/[address] Comment on above: Expected: 05/29/2024 (Approximate), Expi res: 05/29/2025 Start: 05-25-2024 End: 05-25-2025 CBC W Auto Differential panel - Blood CBC auto differential Lab Routine Essential hypertension Expected: 05/25/2024 (Approximate), Expires: 05/25/2025 [employer] Work Phone: Comment on above: Expected: 05/25/2024 (Approximate), Expi res: 05/25/2025 Start: 05-25-2024 End: 05-28-2024 Clostridioides difficile toxin genes [Presence] in Stool by SHANNAN with probe detection C. DIFFICILE by PCR with Reflex to EIA Microbiology Routine Diarrhea, unspecified type Expected: 05/25/2024 (Approximate), Expires: 05/28/2024 [employer] Work Phone: Comment on above: Expected: 05/25/2024 (Approximate), Expi res: 05/28/2024 Start: 05-25-2024 End: 05-25-2025 Cobalamin (Vitamin B12) [Mass/volume] in Serum or Plasma Vitamin B12 Lab Routine Other iron deficiency anemia Expected: 05/25/2024 (Approximate), Ex[facility]: [facility]/25/[address] [facility] [facility] Comment on above: Expected: 05/25/2024 (Approximate), Expi res: 05/25/2025 Start: 05-25-2024 End: 05-25-2025 Comprehensive metabolic 1998 panel - Serum or Plasma Comprehensive metabolic panel Lab Routine Essential hypertension Expected: 05/25/2024 (Approximate), Expires: 05/25/2025 [employer] Comment on above: Expected: 05/25/2024 (Approximate), Expi res: 05/25/2025 Start: 05-25-2024 End: 05-25-2025 Erythrocyte sedimentation rate Sedimentation rate, automated Lab Routine Other iron deficiency anemia Expected: 05/25/2024 (Approximate), Expires: 05/25/2025 [employer] Comment on above: Expected: 05/25/2024 (Approximate), Expi res: 05/25/2025 Start: 05-25-2024 End: 05-25-2025 Ferritin [Mass/volume] in Serum or Plasma Ferritin Lab Routine Other iron deficiency anemia Expected: 05/25/2024 (Approximate), Expires: 05/25/2025 [employer] Comment on above: Expected: 05/25/2024 (Approximate), Expi res: 05/25/2025 Start: 05-25-2024 End: 05-25-2025 Hemoglobin A1c measurement Hemoglobin A1c Lab Routine Type 2 diabetes mellitus without complication, without long-term current use of insulin (HCC) Expected: 05/25/2024 (Approximate), Expires: 05/25/2025 [employer] Comment on above: Expected: 05/25/2024 (Approximate), Expi res: 05/25/2025 Start: 05-25-2024 End: 05-25-2025 Iron and Iron binding capacity panel - Serum or Plasma Iron and TIBC Lab Routine Other iron deficiency anemia Expected: 05/25/2024 (Approximate), Expires: 05/25/2025 [employer] Comment on above: Expected: 05/25/2024 (Approximate), Expi res: 05/25/2025 Start: 05-25-2024 End: 05-25-2025 Lipid 1996 panel - Serum or Plasma Lipid panel Lab Routine Hypercholesterolemia Expected: 05/25/2024 (Approximate), Expires: 05/25/2025 [employer] Comment on above: Expected: 05/25/2024 (Approximate), Expi res: 05/25/2025 Start: 05-25-2024 End: 05-25-2024 Patient encounter procedure 05/25/2024 8:30 AM EDT Office Visit [facility] [place] [address] [place] [address] Charlylayne Alpesh Wang DO [address] [place] [address] [facility] [place] Start: 05-01-2024 Diabetes: Estimated Glomerular Filtration Rate for Kidney Health Diabetes: Estimated Glomerular Filtration Rate for Kidney Health [facility] Start: 03-17-2024 Glaucoma screening Diabetes: Retinopathy Screening [facility] Start: 03-01-2024 End: 03-01-2024 Clinical Support 03/01/2024 10:00 AM EST Clinical Support [facility] [place] [address] [place] [address] [facility] [place] Start: 02-17-2024 Medicare Advantage Annual Wellness Visit Medicare Advantage Annual Wellness Visit [facility] Start: 01-26-2024 End: 01-25-2025 CBC W Auto Differential panel - Blood CBC auto differential Lab Routine Type 2 diabetes mellitus without complication, without long-term current use of insulin ([facility]) (HCC) Expected: 01/26/2024 (Approximate), Expires: 01/25/2025 [facility] Work Phone: Comment on above: Expected: 01/26/2024 (Approximate), Expi res: 01/25/2025 Start: 01-26-2024 End: 01-25-2025 Cobalamin (Vitamin B12) [Mass/volume] in Serum or Plasma Vitamin B12 Lab Routine Anemia, unspecified type Expected: 01/26/2024 (Approximate), Expires: 01/25/2025 [facility] Comment on above: Expected: 01/26/2024 (Approximate), Expi res: 01/25/2025 Start: 01-26-2024 End: 01-25-2025 Comprehensive metabolic 1998 panel - Serum or Plasma Comprehensive metabolic panel Lab Routine Type 2 diabetes mellitus without complication, without long-term current use of insulin (CMS/HCC) (HCC) Expected: 01/26/2024 (Approximate), Expires: 01/25/2025 [facility] [employer] Comment on above: Expected: 01/26/2024 (Approximate), Expi res: 01/25/2025 Start: 01-26-2024 End: 01-25-2025 Ferritin [Mass/volume] in Serum or Plasma Ferritin Lab Routine Anemia, unspecified type Expected: 01/26/2024 (Approximate), Expires: 01/25/2025 [facility] [employer] Comment on above: Expected: 01/26/2024 (Approximate), Expi res: 01/25/2025 Start: 01-26-2024 End: 01-25-2025 Hemoglobin A1c measurement Hemoglobin A1c Lab Routine Type 2 diabetes mellitus without complication, without long-term current use of insulin (CMS/HCC) (HCC) Expected: 01/26/2024 (Approximate), Expires: 01/25/2025 [facility] [employer] Comment on above: Expected: 01/26/2024 (Approximate), Expi res: 01/25/2025 Start: 01-26-2024 End: 01-25-2025 Iron and Iron binding capacity panel - Serum or Plasma Iron and TIBC Lab Routine Anemia, unspecified type Expected: 01/26/2024 (Approximate), Expires: 01/25/2025 [facility] [employer] Comment on above: Expected: 01/26/2024 (Approximate), Expi res: 01/25/2025 Start: 01-26-2024 End: 01-26-2024 Patient encounter procedure [facility] Start: 12-03-2023 End: 12-03-2023 Patient encounter procedure [facility] Start: 11-17-2023 End: 11-17-2023 Patient encounter procedure 11/17/2023 10:00 AM EDT Appointment [facility] Non-Invasive Cardiology [address] [place] [phone] Ayaan Lara MD [address] [place] [address] [phone] [facility] Non-Invasive Cardiology Start: 10-18-2023 COVID-19 Vaccine ( season) COVID-19 Vaccine () [facility] Start: 10-18-2023 COVID-19 Vaccine () COVID-19 Vaccine () [facility] Start: 10-18-2023 Influenza vaccination [facility] Start: 10-11-2023 Glaucoma screening Diabetes: Retinopathy Screening [facility] Start: 10-07-2023 End: 10-06-2024 CBC W Auto Differential panel - Blood CBC auto differential Lab Routine Type 2 diabetes mellitus without complication, without long-term current use of insulin (CMS/HCC) ([facility]) Expected: 10/07/2023 (Approximate), Expires: 10/06/2024 [facility] [employer] Comment on above: Expected: 10/07/2023 (Approximate), Expi res: 10/06/2024 Start: 10-07-2023 End: 10-06-2024 Comprehensive metabolic 1998 panel - Serum or Plasma Comprehensive metabolic panel Lab Routine Type 2 diabetes mellitus without complication, without long-term current use of insulin (CMS/HCC) (HCC) Expected: 10/07/2023 (Approximate), Expires: 10/06/2024 [facility] [employer] Comment on above: Expected: 10/07/2023 (Approximate), Expi res: 10/06/2024 Start: 10-07-2023 End: 10-06-2024 Hemoglobin A1c measurement Hemoglobin A1c Lab Routine Type 2 diabetes mellitus without complication, without long-term current use of insulin (CMS/HCC) (HCC) Expected: 10/07/2023 (Approximate), Expires: 10/06/2024 [facility] [employer] Comment on above: Expected: 10/07/2023 (Approximate), Expi res: 10/06/2024 Start: 10-07-2023 End: 10-06-2024 Lipid 1996 panel - Serum or Plasma Lipid panel Lab Routine Hyperlipidemia, unspecified hyperlipidemia type Expected: 10/07/2023 (Approximate), Expires: 10/06/2024 [facility] [employer] Comment on above: Expected: 10/07/2023 (Approximate), Expi res: 10/06/2024 Start: 10-07-2023 End: 10-06-2024 Microalbumin/Creatinine panel in random Urine Microalbumin / creatinine, urine ratio Lab Routine Type 2 diabetes mellitus without complication, without long-term current use of insulin ([facility]/HCC) (HCC) Expected: 10/07/2023 (Approximate), Expires: 10/06/2024 [facility] Work Phone: Comment on above: Expected: 10/07/2023 (Approximate), Expi res: 10/06/2024 Start: 10-07-2023 End: 10-07-2023 Patient encounter procedure 10/07/2023 9:30 AM EDT Office Visit [facility] [address] [place] [address] Alpesh Marroquin, [address] [place] [address] [place] [address] [facility] Start: 09-04-2023 Hemoglobin A1c measurement Diabetes: Hemoglobin A1C [facility] Start: 09-04-2023 Lipid panel Lipid Panel [facility] Start: 08-04-2023 End: 08-04-2023 Patient encounter procedure 08/04/2023 1:30 PM EDT Office Visit [facility] [address] [place] [address] Alpesh Marroquin, [address] [place] [address] [place] [address] [facility] Start: 06-19-2023 End: 06-19-2023 Clinical Support 06/19/2023 10:00 AM EDT Clinical Support [facility] Medicine [address] [place] [address] [facility] Start: 06-16-2023 End: 06-16-2023 Patient encounter procedure [facility] Start: 06-14-2023 End: 01-14-2024 CBC W Auto Differential panel - Blood CBC auto differential Lab Routine Iron deficiency anemia due to chronic blood loss Expected: 06/14/2023 (Approximate), Expires: 01/14/2024 [employer] Work Phone: Comment on above: Expected: 06/14/2023 (Approximate), Expi res: 01/14/2024 Start: 06-14-2023 End: 01-14-2024 Ferritin [Mass/volume] in Serum or Plasma Ferritin Lab Routine Iron deficiency anemia due to chronic blood loss Expected: 06/14/2023 (Approximate), Expires: 01/14/2024 [employer] Comment on above: Expected: 06/14/2023 (Approximate), Expi res: 01/14/2024 Start: 06-14-2023 End: 01-14-2024 Iron and Iron binding capacity panel - Serum or Plasma Iron and TIBC Lab Routine Iron deficiency anemia due to chronic blood loss Expected: 06/14/2023 (Approximate), Expires: 01/14/2024 [employer] Comment on above: Expected: 06/14/2023 (Approximate), Expi res: 01/14/2024 Start: 05-21-2023 End: 05-20-2024 Basic metabolic 1998 panel - Serum or Plasma Basic metabolic panel Lab Routine Type 2 diabetes mellitus without complication, without long-term current use of insulin (CMS/HCC) (HCC) Expected: 05/21/2023 (Approximate), Expires: 05/20/2024 [employer] Comment on above: Expected: 05/21/2023 (Approximate), Expi res: 05/20/2024 Start: 05-21-2023 End: 05-20-2024 CBC W Auto Differential panel - Blood CBC auto differential Lab Routine Type 2 diabetes mellitus without complication, without long-term current use of insulin (CMS/HCC) (HCC) Expected: 05/21/2023 (Approximate), Expires: 05/20/2024 [employer] Work Phone: Comment on above: Expected: 05/21/2023 (Approximate), Expi res: 05/20/2024 Start: 05-21-2023 End: 05-21-2023 Patient encounter procedure 05/21/2023 10:00 AM EDT Office Visit [facility] [address] [place] [address] Charlylayne Alpehs F, DO [address] [place] [address] [place] [address] [facility] Start: 05-15-2023 End: 05-14-2025 US Heart Transthoracic Transthoracic echocardiogram (TTE) complete with contrast, bubble, strain, and 3D PRN CV Echocardiography Routine Shortness of breath Other acute pulmonary embolism without acute cor pulmonale (HCC) Expected: 05/15/2023 (Approximate), Expires: 05/14/2025 [employer] Work Phone: Comment on above: Expected: 05/15/2023 (Approximate), Expi res: 05/14/2025 Start: 04-07-2023 End: 04-07-2024 CBC W Auto Differential panel - Blood CBC auto differential Lab Routine Type 2 diabetes mellitus without complication, without long-term current use of insulin (CMS/HCC) (HCC) Expected: 04/07/2023 (Approximate), Expires: 04/07/2024 [employer] Work Phone: Comment on above: Expected: 04/07/2023 (Approximate), Expi res: 04/07/2024 Start: 04-07-2023 End: 04-07-2024 Comprehensive metabolic 1998 panel - Serum or Plasma Comprehensive metabolic panel Lab Routine Type 2 diabetes mellitus without complication, without long-term current use of insulin (CMS/HCC) (HCC) Expected: 04/07/2023 (Approximate), Expires: 04/07/2024 [employer] Comment on above: Expected: 04/07/2023 (Approximate), Expi res: 04/07/2024 Start: 04-07-2023 End: 04-07-2024 Ferritin [Mass/volume] in Serum or Plasma Ferritin Lab Routine Iron deficiency anemia, unspecified iron deficiency anemia type Expected: 04/07/2023 (Approximate), Expires: 04/07/2024 [facility] [employer] Comment on above: Expected: 04/07/2023 (Approximate), Expi res: 04/07/2024 Start: 04-07-2023 End: 04-07-2024 Hemoglobin A1c measurement Hemoglobin A1c Lab Routine Type 2 diabetes mellitus without complication, without long-term current use of insulin ([facility]) (HCC) Expected: 04/07/2023 (Approximate), Expires: 04/07/2024 [facility] [employer] Comment on above: Expected: 04/07/2023 (Approximate), Expi res: 04/07/2024 Start: 04-07-2023 End: 04-07-2024 Iron and Iron binding capacity panel - Serum or Plasma Iron and TIBC Lab Routine Iron deficiency anemia, unspecified iron deficiency anemia type Expected: 04/07/2023 (Approximate), Expires: 04/07/2024 [facility] Comment on above: Expected: 04/07/2023 (Approximate), Expi res: 04/07/2024 Start: 04-07-2023 End: 04-07-2023 Patient encounter procedure 04/07/2023 2:00 PM EST Office Visit [facility] Medicine [address] [place] [address] Alpesh Marroquin, [address] [place] [address] [facility] Start: 03-06-2023 Diabetes: Urine Albumin-Creatinine Ratio for Kidney Health Diabetes: Urine Albumin-Creatinine Ratio for Kidney Health [facility] [employer] Start: 03-06-2023 Diabetic foot examination Diabetes: Foot Exam [facility] Start: 03-06-2023 Hemoglobin A1c measurement Diabetes: Hemoglobin A1C [facility] Start: 03-06-2023 Lipid panel Lipid Panel [facility] Start: 03-06-2023 Urine screening for protein Diabetes: Urine Protein Screening [facility] [employer] Start: 03-06-2023 End: 03-06-2023 Patient encounter procedure [facility] Start: 02-16-2023 Medicare Advantage Annual Wellness Visit Medicare Advantage Annual Wellness Visit [facility] Start: 02-14-2023 RSV Immunization for Adults (1 - 1-dose 75+ series) RSV Immunization for Adults (1 - 1-dose 75+ series) [facility] Start: 01-13-2023 End: 01-13-2023 Patient encounter procedure 01/13/2023 11:30 AM EST Office Visit [facility] [address] [place] [phone] Harry Serrano, DO [address] [place] [address] [facility] Start: 01-06-2023 End: 10-09-2023 CBC W Auto Differential panel - Blood CBC auto differential Lab Routine Iron deficiency anemia due to chronic blood loss Expected: 01/06/2023 (Approximate), Expires: 10/09/2023 [facility] [employer] [facility] Work Phone: Comment on above: Expected: 01/06/2023 (Approximate), Expi res: 10/09/2023 Start: 01-06-2023 End: 10-09-2023 Ferritin [Mass/volume] in Serum or Plasma Ferritin Lab Routine Iron deficiency anemia due to chronic blood loss Expected: 01/06/2023 (Approximate), Expires: 10/09/2023 [facility] [employer] Comment on above: Expected: 01/06/2023 (Approximate), Expi res: 10/09/2023 Start: 01-06-2023 End: 10-09-2023 Iron and Iron binding capacity panel - Serum or Plasma Iron and TIBC Lab Routine Iron deficiency anemia due to chronic blood loss Expected: 01/06/2023 (Approximate), Expires: 10/09/2023 [facility] Comment on above: Expected: 01/06/2023 (Approximate), Expi res: 10/09/2023 Start: 10-28-2022 End: 10-28-2022 Patient encounter procedure 10/28/2022 8:30 AM EDT Office Visit [facility] [address] [place] [phone] Harry Serrano DO [address] [place] [address] [facility] Start: 10-17-2022 COVID-19 Vaccine ( season) COVID-19 Vaccine () [facility] Start: 10-17-2022 Influenza vaccination Influenza Vaccine (#1) [facility] Start: 10-07-2022 End: 10-08-2023 CBC W Auto Differential panel - Blood CBC auto differential Lab Routine Iron deficiency anemia due to chronic blood loss Expected: 10/07/2022 (Approximate), Expires: 10/08/2023 [facility] Work Phone: Comment on above: Expected: 10/07/2022 (Approximate), Expi res: 10/08/2023 Start: 10-07-2022 End: 10-08-2023 Ferritin [Mass/volume] in Serum or Plasma Ferritin Lab Routine Iron deficiency anemia due to chronic blood loss Expected: 10/07/2022 (Approximate), Expires: 10/08/2023 [facility] Comment on above: Expected: 10/07/2022 (Approximate), Expi res: 10/08/2023 Start: 10-07-2022 End: 10-08-2023 Iron and Iron binding capacity panel - Serum or Plasma Iron and TIBC Lab Routine Iron deficiency anemia due to chronic blood loss Expected: 10/07/2022 (Approximate), Expires: 10/08/2023 [facility] Comment on above: Expected: 10/07/2022 (Approximate), Expi res: 10/08/2023 Start: 10-07-2022 End: 10-07-2022 Patient encounter procedure 10/07/2022 8:30 AM EDT Office Visit [facility] [address] [place] [phone] Harry Serrano DO [address] [place] [address] [facility] Start: 09-18-2022 Screening for malignant neoplasm of breast Breast cancer screen [facility] Start: 09-03-2022 End: 09-04-2023 CBC W Auto Differential panel - Blood CBC auto differential Lab Routine Essential hypertension Expected: 09/03/2022 (Approximate), Expires: 09/04/2023 [facility] [employer] [facility] Work Phone: Comment on above: Expected: 09/03/2022 (Approximate), Expi res: 09/04/2023 Start: 09-03-2022 End: 09-04-2023 Comprehensive metabolic 1998 panel - Serum or Plasma Comprehensive metabolic panel Lab Routine Essential hypertension Expected: 09/03/2022 (Approximate), Expires: 09/04/2023 [facility] Comment on above: Expected: 09/03/2022 (Approximate), Expi res: 09/04/2023 Start: 09-03-2022 End: 09-04-2023 Hemoglobin A1c/Hemoglobin.total in Blood Hemoglobin A1c Lab Routine Type 2 diabetes mellitus without complication, without long-term current use of insulin (CMS/HCC) (HCC) Expected: 09/03/2022 (Approximate), Expires: 09/04/2023 [facility] Comment on above: Expected: 09/03/2022 (Approximate), Expi res: 09/04/2023 Start: 09-03-2022 End: 09-04-2023 Lipid 1996 panel - Serum or Plasma Lipid panel Lab Routine Hypercholesterolemia Expected: 09/03/2022 (Approximate), Expires: 09/04/2023 [facility] [employer] Comment on above: Expected: 09/03/2022 (Approximate), Expi res: 09/04/2023 Start: 09-03-2022 End: 09-03-2022 Patient encounter procedure 09/03/2022 Office Visit Family Medicine Alpesh Marroquin, DO [address] [place] [id number] [facility] Start: 08-21-2022 Lipid panel Lipid Panel [facility] Start: 06-19-2022 Colonoscopy w/biopsy single/multiple COLONOSCOPY AND BIOPSY [facility] Start: 06-19-2022 Colsc flexible w/control bleeding any method COLONOSCOPY W/CONTROL BLEED [facility] Start: 06-19-2022 Egd transoral biopsy single/multiple EGD BIOPSY SINGLE/MULTIPLE [facility] Start: 06-19-2022 Patient discharge [facility] Start: 06-04-2022 Hemoglobin A1c measurement Diabetes: Hemoglobin A1C [facility] Start: 03-09-2022 End: 03-09-2023 Erythrocyte sedimentation rate Sedimentation rate, automated Lab Routine Hypochromic anemia Expected: 03/09/2022 (Approximate), Expires: 03/09/2023 [facility] Work Phone: Comment on above: Expected: 03/09/2022 (Approximate), Expi res: 03/09/2023 Start: 03-09-2022 End: 03-09-2023 Ferritin [Mass/volume] in Serum or Plasma Ferritin Lab Routine Hypochromic anemia Expected: 03/09/2022 (Approximate), Expires: 03/09/2023 [facility] Comment on above: Expected: 03/09/2022 (Approximate), Expi res: 03/09/2023 Start: 03-09-2022 End: 03-09-2023 Folate RBC Folate RBC Lab Routine Hypochromic anemia Expected: 03/09/2022 (Approximate), Expires: 03/09/2023 [facility] Comment on above: Expected: 03/09/2022 (Approximate), Expi res: 03/09/2023 Start: 03-09-2022 End: 03-09-2023 Iron and Iron binding capacity panel - Serum or Plasma Iron and TIBC Lab Routine Hypochromic anemia Expected: 03/09/2022 (Approximate), Expires: 03/09/2023 [facility] Comment on above: Expected: 03/09/2022 (Approximate), Expi res: 03/09/2023 Start: 03-09-2022 End: 03-09-2023 Serum Electrophoresis Serum Electrophoresis Lab Routine Hypochromic anemia Expected: 03/09/2022 (Approximate), Expires: 03/09/2023 [facility] Comment on above: Expected: 03/09/2022 (Approximate), Expi res: 03/09/2023 Start: 03-06-2022 End: 03-06-2023 CBC W Auto Differential panel - Blood CBC auto differential Lab Routine Type 2 diabetes mellitus without complication, without long-term current use of insulin ([facility]/HCC) (HCC) Expected: 03/06/2022 (Approximate), Expires: 03/06/2023 [facility] Comment on above: Expected: 03/06/2022 (Approximate), Expi res: 03/06/2023 Start: 03-06-2022 End: 03-06-2023 Cobalamin (Vitamin B12) [Mass/volume] in Serum or Plasma Vitamin B12 Lab Routine B12 deficiency Expected: 03/06/2022 (Approximate), Expires: 03/06/2023 [facility] Comment on above: Expected: 03/06/2022 (Approximate), Expi res: 03/06/2023 Start: 03-06-2022 End: 03-06-2023 Comprehensive metabolic 1998 panel - Serum or Plasma Comprehensive metabolic panel Lab Routine Type 2 diabetes mellitus without complication, without long-term current use of insulin (CMS/HCC) ([facility]) Expected: 03/06/2022 (Approximate), Expires: 03/06/2023 [facility] [employer] [facility] Work Phone: Comment on above: Expected: 03/06/2022 (Approximate), Expi res: 03/06/2023 Start: 03-06-2022 End: 03-06-2023 Hemoglobin A1c/Hemoglobin.total in Blood Hemoglobin A1c Lab Routine Type 2 diabetes mellitus without complication, without long-term current use of insulin (CMS/HCC) ([facility]) Expected: 03/06/2022 (Approximate), Expires: 03/06/2023 [facility] Comment on above: Expected: 03/06/2022 (Approximate), Expi res: 03/06/2023 Start: 03-06-2022 End: 03-06-2023 Lipid 1996 panel - Serum or Plasma Lipid panel Lab Routine Hypercholesterolemia Expected: 03/06/2022 (Approximate), Expires: 03/06/2023 [facility] Comment on above: Expected: 03/06/2022 (Approximate), Expi res: 03/06/2023 Start: 03-06-2022 End: 03-06-2022 Patient encounter procedure 03/06/2022 Office Visit Family Medicine Alpesh Marroquin, DO [address] [place] [phone] [facility] Start: 02-28-2022 End: 02-28-2022 Patient encounter procedure 02/28/2022 Office Visit [facility] Alpesh Marroquin Kathleen DO [address] [place] [address] [facility] Start: 02-21-2022 Creatinine measurement Creatinine monitoring [facility] Start: 02-21-2022 Diabetic foot examination Diabetic foot exam [facility] Start: 02-21-2022 Hemoglobin A1c measurement A1C test (Diabetic or Prediabetic) [facility] Start: 02-21-2022 Lipid panel Lipid screen [facility] Start: 02-21-2022 Potassium monitoring Potassium monitoring [facility] Start: 11-21-2021 Hemoglobin A1c measurement Diabetes: Hemoglobin A1C [facility] Start: 09-18-2021 Screening for malignant neoplasm of breast Mammogram [facility] Start: 08-24-2021 Annual Wellness Visit (AWV) Annual Wellness Visit (AWV) [facility] Start: 08-23-2021 Depression Screen Depression Screen [facility] Start: 08-23-2021 Diabetes: Urine Albumin-Creatinine Ratio for Kidney Health Diabetes: Urine Albumin-Creatinine Ratio for Kidney Health [facility] Start: 08-23-2021 Urine screening for protein [facility] Start: 08-21-2021 End: 08-21-2021 Patient encounter procedure 08/21/2021 Office Visit [facility] Alpesh WangDO [address] [place] [address] [facility] Start: 08-13-2021 Diabetic retinal exam Diabetic retinal exam [facility] Start: 10-17-2020 COVID-19 Vaccine (3 - Booster for Pfizer series) COVID-19 Vaccine (3 - Booster for Pfizer series) [facility] Start: 07-12-2020 COVID-19 Vaccine (3 - Booster for Pfizer series) COVID-19 Vaccine (3 - Booster for Pfizer series) [facility] Start: 07-12-2020 COVID-19 Vaccine (5 - Booster) COVID-19 Vaccine (5 - Booster) [facility] Start: 05-19-2017 DTaP/Tdap/Td vaccine (1 - Tdap) DTaP/Tdap/Td vaccine (1 - Tdap) [facility] Start: 05-19-2017 DTaP/Tdap/Td Vaccines (1 - Tdap) DTaP/Tdap/Td Vaccines (1 - Tdap) [facility] Start: 2008 RSV Immunization aged 60 or older (1 - 1-dose 60+ series) RSV Immunization aged 60 or older (1 - 1-dose 60+ series) [facility] Start: 02-14-2003 Screening for osteoporosis DEXA (modify frequency per FRAX score) [facility] Start: 02-14-1998 Shingles Vaccine (1 of 2) Shingles Vaccine (1 of 2) [facility] Start: 02-14-1998 Zoster Vaccines (1 of 2) Zoster Vaccines (1 of 2) [facility] Start: 02-14-1993 Screening for malignant neoplasm of colon [facility] Start: 02-14-1966 Hepatitis C screening Hepatitis C Screening [facility] Start: 1960 Depression Screening Depression Screening [facility] Start: 02-14-1958 Diabetic foot examination Diabetes: Foot Exam [facility] Start: 02-14-1958 Glaucoma screening Diabetes: Retinopathy Screening [facility] Start: 02-14-1958 Preventive dental service Diabetes: Dental Exam [facility] Start: 1948 Hepatitis B Vaccines (1 of 3 - 3-dose series) Hepatitis B Vaccines (1 of 3 - 3-dose series) [facility] Start: 1948 Hepatitis C screening Hepatitis C screen [facility] Start: 1948 Medicare Advantage Annual Wellness Visit (AWV) Medicare Advantage Annual Wellness Visit (AWV) [facility] Start: 1948 Screening for malignant neoplasm of colon [facility] Start: 1948 Screening for osteoporosis Bone Density Scan [facility] End: 06-30-2024 Cardiac event monitor (14 days) [facility] [employer] Work Phone: Comment on above: Once for 1 Occurrences starting 07/01/19 until 06/30/2024 CBC W Auto Different ial panel - Blood [facility] IgG, IgA, IgM IgG, IgA, IgM La b Routine Normochromic normocytic anemia Ordered: 05/29/2024 [facility] Comment on above: Ordered: 05/29/2024 IgG, IgA, IgM IgG, IgA, IgM La b Routine Anemia, unspecified type Ordered: 06/05/2024 [employer] Comment on above: Ordered: 06/05/2024 IgG, IgA, IgM IgG, IgA, IgM La b Routine Iron deficiency anemia due to chronic blood loss Vitamin B12 deficiency MGUS (monoclonal gammopathy of unknown significance) Ordered: 07/26/2024 [employer] Comment on above: Ordered: 07/26/2024 Immunofixation Electrophoresis Immunofixation Electrophoresis Lab Routine Normochromic normocytic anemia Ordered: 05/29/2024 [employer] Comment on above: Ordered: 05/29/2024 Immunofixation Electrophoresis Immunofixation Electrophoresis Lab Routine Normochromic normocytic anemia 05/30/2024 2:04 PM EDT [employer] Immunofixation Electrophoresis Immunofixation Electrophoresis Lab Routine Anemia, unspecified type Ordered: 06/05/2024 [employer] Comment on above: Ordered: 06/05/2024 Immunofixation Electrophoresis Immunofixation Electrophoresis Lab Routine Anemia, unspecified type 06/07/2024 12:[address] [facility] Electrophoresis Immunofixation Electrophoresis Lab Routine Iron deficiency anemia due to chronic blood loss Vitamin B12 deficiency MGUS (monoclonal gammopathy of unknown significance) Ordered: 07/26/2024 [employer] Comment on above: Ordered: 07/26/2024 Measurement of occul t blood in stool specimen using immunoassay [facility] Patient Education Causes of Sync ope ED Vomiting (Adult) [facility] Work Phone: Patient referral [facility] Work Phone: Protein [Mass/volume ] in Serum or Plasma Protein, total Lab Routine Other iron deficiency anemia Ordered: 05/25/2024 [employer] Comment on above: Ordered: 05/25/2024 Protein [Mass/volume ] in Serum or Plasma Protein, total Lab Routine Normochromic normocytic anemia Ordered: 05/29/2024 [employer] Comment on above: Ordered: 05/29/2024 Protein [Mass/volume ] in Serum or Plasma Protein, total Lab Routine Iron deficiency anemia due to chronic blood loss Vitamin B12 deficiency MGUS (monoclonal gammopathy of unknown significance) Ordered: 07/26/2024 [employer] Comment on above: Ordered: 07/26/2024 Protein, Total and Protein Electrophoresis Protein, Total and Protein Electrophoresis Lab Routine Other iron deficiency anemia Ordered: 05/25/2024 [facility] [employer] Comment on above: Ordered: 05/25/2024 Protein, Total and Protein Electrophoresis Protein, Total and Protein Electrophoresis Lab Routine Normochromic normocytic anemia 05/30/2024 2:04 PM EDT [facility] Serum Electrophoresis Serum Elec trophoresis Lab Routine Other iron deficiency anemia Ordered: 05/25/2024 [facility] [employer] Comment on above: Ordered: 05/25/2024 Serum Electrophoresis Serum Elec trophoresis Lab Routine Normochromic normocytic anemia Ordered: 05/29/2024 [facility] [employer] Comment on above: Ordered: 05/29/2024 Serum Electrophoresis Serum Elec trophoresis Lab Routine Iron deficiency anemia due to chronic blood loss Vitamin B12 deficiency MGUS (monoclonal gammopathy of unknown significance) Ordered: 07/26/2024 [facility] [employer] Comment on above: Ordered: 07/26/2024 End: 02-10-2023 Streptococcus pyogenes DNA [Identifier] in Unspecified specimen by SHANNAN with probe detection Group A Strep Screen By PCR Microbiology STAT Once (Lab) for 1 Occurrences starting 02/10/2023 until 02/10/2023 [facility] Work Phone: Comment on above: Once (Lab) for 1 Occurrences starting until 02/10/2023 Immunizations Immunization Date Immunization Notes Care Provider Pankaj langford 01-26-2024 Seasonal trivalent influenza vaccine, adjuvanted, preservative free Alpesh Cheneyvikalayne DO Work Phone: [facility] [employer] 01-26-2024 influenza virus vacc ine, unspecified formulation Chair 2 [facility] 01-02-2022 influenza, seasonal, injectable Alpesh Cheneyvikalayne DO Work Phone: [facility] 01-02-2022 influenza virus vacc ine, unspecified formulation Alpesh Marroquin DO Work Phone: [facility] [employer] 02-21-2021 Influenza, High-dose , Quadv, 65 yrs +, IM (Fluzone) Martha Trivedi TOP STOP ATTACHER - RETAIL DISTRICT MANAGER Work Phone: [facility] Work Phone: 05-17-2020 Covid (Pfizer) [facility] Work Phone: 04-26-2020 Covid (Pfizer) [facility] Work Phone: 02-22-2020 Influenza, High-dose , Quadv, 65 yrs +, IM (Fluzone) Martha Osvaldoie TOP STOP ATTACHER - RETAIL DISTRICT MANAGER Work Phone: [facility] 06-22-2019 pneumococcal polysaccharide vaccine, 23 valent Martha Tokie TOP STOP ATTACHER - RETAIL DISTRICT MANAGER Work Phone: [facility] Work Phone: 12-20-2018 influenza, high dose seasonal, preservative-free Martha Tokie TOP STOP ATTACHER - RETAIL DISTRICT MANAGER Work Phone: [facility] 12-20-2018 Influenza, High-dose Seasonal, Quadrivalent, Preservative Free Alpesh Parksa DO Work Phone: [facility] 12-09-2017 influenza, high dose seasonal, preservative-free Martha Tokie TOP STOP ATTACHER - RETAIL DISTRICT MANAGER Work Phone: [facility] 05-18-2017 TD(adult) unspecifie d formulation PA Semi DO Work Phone: [facility] 05-18-2017 Td, unspecified formulation Martha Tokie TOP STOP ATTACHER - RETAIL DISTRICT MANAGER Work Phone: [facility] 05-18-2017 tetanus and diphther ia toxoids, not adsorbed, for adult use Year Up Work Phone: [facility] 12-04-2016 influenza, injectabl e, quadrivalent, contains preservative Martha Tokie TOP STOP ATTACHER - RETAIL DISTRICT MANAGER Work Phone: [facility] 10-22-2016 pneumococcal conjuga te vaccine, 13 valent Martha Tokie TOP STOP ATTACHER - RETAIL DISTRICT MANAGER Work Phone: [facility] 2015 influenza virus vacc ine, unspecified formulation Martha Tokie TOP STOP ATTACHER - RETAIL DISTRICT MANAGER Work Phone: [facility] 2015 influenza virus vacc ine, whole virus Alpesh LYFE [employer] Work Phone: [facility] 12-30-2013 influenza, high dose seasonal, preservative-free Martha Tokie TOP STOP ATTACHER - RETAIL DISTRICT MANAGER Work Phone: [facility] Work Phone: 12-30-2013 influenza, injectabl e, quadrivalent, contains preservative Alpesh Marroquin DO Work Phone: [facility] [employer] 12-30-2013 influenza, seasonal, injectable Alpesh Marroquin DO Work Phone: [facility] [employer] 10-30-2011 pneumococcal polysaccharide vaccine, 23 valent Martha Trivedi TOP STOP ATTACHER - RETAIL DISTRICT MANAGER Work Phone: [facility] Work Phone: Payers Date Payer Category Payer Self-pay [id number] 2022 Medicare HMO [employer] MEDICARE [id number] 2022 Private Health Insurance [id number] 2022 Private Health Insurance [employer]MENT [id number] 2022-Present [address] [address] [place] [address] Supplement [id number] 2014 Medicare [id number] 2014 Private Health Insurance [employer] [id number] 2014-Present [phone] [address] [place] [address] [id number] 2013 Medicare [id number] Private Health Insurance [id number] Unknown [id number] Unknown [id number] Unknown [id number] Unknown [id number] Unknown [id number] Social History Date Type Detail Facility Tobacco smoking stat us HIIS Unknown if ever smoked [facility] Work Phone: Start: 1950 Sex Assigned At Female [facility] Start: 10-22-2016 End: 06-10-2024 Tobacco smoking status HIIS Never smoked tobacco [facility] Start: 10-22-2016 Tobacco use and exposure Smoke less tobacco non-user [employer] Work Phone: Start: 05-22-2021 End: 07-29-2024 Alcohol intake Current non-drinker of alcohol (finding) [facility] Work Phone: Start: 05-20-2018 End: 08-23-2020 History SDOH Alcohol Frequency 1 [employer] Work Phone: Start: 05-20-2018 History SDOH Social Connections Phone 4 [employer] Work Phone: Start: 05-20-2018 History SDOH Social Connections Get Together 2 [employer] Work Phone: Start: 05-20-2018 History SDOH Social Connections Protestant 3 [facility] Work Phone: Start: 05-20-2018 History SDOH Physica l Activity DPW 0 [facility] Work Phone: Start: 08-23-2020 History SDOH Financial 5 [facility] Work Phone: Start: 1950 Sex Assigned At Not on file [facility] Work Phone: Start: 04-11-2022 End: 07-16-2022 Tobacco smoking status NHIS Unknown if ever smoked [facility] Start: 07-06-2022 End: 10-07-2023 History of Social function [facility] Start: 07-06-2022 End: 10-07-2023 Tobacco use panel [facility] Start: 02-24-2022 End: 10-07-2022 Exposure to SARS-CoV-2 (event) Not sure [facility] How often to you hav e a drink containing alcohol? Never [facility] How many standard dr inks containing alcohol do you have on a typical day? Patient does not drink [facility] How often to you hav e a drink containing alcohol? Monthly or less [facility] In the past 12 month s, was there a time when you were not able to pay the mortgage or rent on time? No [facility] Are you now , , , , never or living with a partner? [facility] Do you feel stress - tense, restless, nervous, or anxious, or unable to sleep at night because your mind is troubled all the time - these days [OSQ] Not at all [facility] (I/We) worried wherodrigue er (my/our) food would run out before (I/we) got money to buy more. Never true [facility] Start: 09-16-2021 Sex Female (finding) [facility] Goals Date Patient Goal Desired Activity /State Functional Status Date Assessment Result Facility 07-12-2024 Patient Health Questionnaire 2 item (PHQ- 2) [Reported] [facility] 10-07-2023 Drug Abuse Screening Test-10 [DAST-10] [facility] 10-07-2023 Patient Health Questionnaire 2 item (PHQ- 2) [Reported] [facility] Mental Status Date Assessment Result Facility 06-10-2024 Cognitive function Level Of Cons ciousness Awake;Alert;Appropriate;Follo ws Commands [facility] Work Phone: 06-19-2022 Cognitive function Follows Commands;Drowsy;Sedated;Respo nds to vocal stimuli [facility] Work Phone: 06-19-2022 Cognitive function Arousable To Voice/Nam e [facility] Work Phone: Clinical Notes 02-24-2022 to 10-06-2024 Aline Patiño RN - 10/06/2024 11:00 AM EDTSchris Perla - 09/29/2024 10:00 AM EDT Note Date & Type Note Facility 10-06-2024 History of Presen t illness Narrative ARRIVAL NOTE INFUSION Patient is here for iron infusion Labs were not ordered 1200 Infusion completed and flushed with NS. No IV related complications. No s/sx rx, pt voices no c/o. Pt verbalizes understanding of s/sx adverse reaction or complication to report to MD office when at home. documented in this encounter [facility] 09-29-2024 History of Presen t illness Narrative Arrival Note Infusion Patient is here for iron Labs were not ordered. Tolerated last iron infusion well without side effects. 1100 Ordered treatment completed. Patient discharged without any issues. Patient has a copy of next infusion appointment and verbalizes understanding. All questions answered. documented in this encounter [facility] 09-27-2024 Evaluation note Diagnosis Onset Date Resolution Anemia acute September 27 9:16am Chronic diarrhea chronic September 162024 9:16am [facility] Work Phone: [phone]) 900-353108-12-2025 [facility] [place] [address] OFFICE VISIT Date of Service: 09/27/24 MR#: [id number] Acct: [id number] Name: CATA AYERS Rep #: [id number] 2 : 1950 Provider: SARAH Stark Age/Sex: 74/F Location: [facility] Status: Signed Intake Vital Signs 06/10/24 16:33 Height 5 ft 3 in Intake Visit Reasons: Black Stools Chief Complaint: Anemia Allergies kiwi Allergy (Intermediate, Verified 06/10/24 16:35) Swelling lisinopril Allergy (Intermediate, Verified 06/10/24 16:35) Other cat dander (cats) Allergy (Verified 06/10/24 16:40) Itching Medications ?Medication ?Instructions ?Recorded ?Confirmed ?Type amlodipine 5 mg tablet 5 mg PO DAILY 04/02/2207/16 History atorvastatin 10 mg tablet 10 mg PO DAILY 04/02/2209/16 History glimepiride 4 mg tablet 4 mg PO DAILY 04/02/2209/27 History mecobalamin (vitamin B12) 500 mcg 500 mcg PO DAILY 09/27/24 History chewable tablet omeprazole 40 mg capsule,delayed 40 mg PO DAILY 09/27/24 History release losartan 100 1 tab PO DAILY 06/17/2209/16 History mg-hydrochlorothiazide 12.5 mg tablet apixaban 2.5 mg tablet (Eliquis) 2.5 mg PO BID 5 09/27/24 History empagliflozin 25 mg tablet 25 mg PO QAM 09/27/2409/27 History (Jardiance) ferrous sulfate 325 mg (65 mg 325 mg PO BID 09/27/24 0 09/27/24 History iron) tablet Have you fallen in the past year?: Yes Nurse's Note: OV 09/27/24 Pt here to f/u with ER visit. Pt reports dark formed stools. Denies nausea, vomiting, abdominal pain, constipation, diarrhea and bloody stools. Pt reports she stopped taking metformin andher diarrhea stopped. Continues omeprazole daily. [facility] Medical History Wears dentures Wears glasses Post-menopausal Diabetes Arthritis Kidney stones Fatty liver Anemia High cholesterol Dietary restriction Gastric reflux Non-smoker History of pain when walking History of edema Hypercholesteremia Type 2 diabetes mellitus Lumbar disc disease Cholelithiasis GERD (gastroesophageal reflux disease) Vitamin B12 deficiency Cystoid macular edema HTN (hypertension) Renal cyst Surgical History History of partial hysterectomy History of cholecystectomy Family History Father Prostate cancer Brother Hx of resection of large bowel PAD (peripheral artery disease) Mother Rheumatoid arthritis Sister Diabetes Brother Diabetes Social History Smoking Status: Never smoker alcohol intake: never HPI HPI Chief Complaint: Anemia Details: CATA AYERS, is a 74 F who presents to the office today for reestablishment. [facility] established in 2022 for chronic diarrhea, anemia and GERD. EGD 5.4.23 - Normal esophagus. - Normal stomach. - Small hiatal hernia. - Erythematous duodenopathy. Biopsied Colonoscopy 5.4.23 - Congested mucosa in the sigmoid colon, at the splenic flexure, at the hepatic flexure and in the ascending colon. Biopsied. - One bleeding colonic angiodysplastic lesion. Treated with a monopolar probe. - Two bleeding angiodysplastic lesions in the ileum. Treated with a heater probe. OV 6.6.23 for f/u after endoscopy. Continue PPI, cholestyramine and psyllium OV 8.12.25 here for re establishment. PMHx of MGUS, iron def anemia, PE and DVT.Pt seen by her call manager who recommended f/u with GI for persistent anemia. Patient was on oral iron twice a day however her anemia was refractory. She hashad 1 iron infusion. She does notice she is less fatigued now. She does not notice any blood in her stool. When she was oral and oral iron her stools were black.She is no longer having any diarrhea after stopping metformin. She has normal bowel movements with no constipation. ROS Const Constitutional: Positive for fatigue; No fever(s) or weight change ENT ENT: No difficulty swallowing Gastro GI: No abdominal pain, belching, bloating, change in bowel habits, change in stool character, coffee ground emesis, constipation, cramping, diarrhea, heartburn, difficulty swallowing, feeling full early, excessive flatus, incontinent of stools, Vomiting blood/hematemesis, Blood in stool, loose stool s,Black,tarry stools, nausea/dyspepsia, pain with swallowing, vomiting or other Musc Musculoskeletal: Positive for back pain, Arthritis, sciatica and restless legs; No joint pain Skin Skin: No yellowing of the eye or itchy eyes Neuro Neurology: Positive for restless legs Psych Psychiatric: No anxiety and No depression Endo Endocrine: Positive for fatigue; No weight change Aller/Imm Allergy/Immunologic: No itchy eyes Alexsander/Lymp Hematologic/Lymphatic: No easy bleeding or easy bruising Exam Const General: cooperative, healthy appearing and comfortable Orientation: alert HENMT Head: normal to inspection Eyes General: appearance normal, both eyes and all related structures Neck Neck: normal visual inspection Chest Chest palpation & inspection: normal inspection of the chest Resp Effort & Inspection: normal respiratory effort Cardio Rate: regular rate Rhythm: regular rhythm GI Inspection: normal to inspection Auscultation: normal bowel sounds Palpation: soft, not firm, no guarding and nontender Assessment and Plan Assessment and Plan (1) Anemia: Status: Acute (2) Chronic diarrhea: Status: Chronic Plan: Cata is a 74-year-old female patient here today for reestablishment with the clinic. Patient previously seen in our office in 2022 for issues with anemia and diarrhea. Colonoscopy and EGD in 2022 showing AVMs in the colon. Since then she has been seeing her call manager with downtrending hemoglobin over the past month. Iron deficiency anemia was refractory to oral iron supplementation. She was started on iron infusion and is feeling less fatigued. She is scheduled for 2 more infusions in the future. Patient's call manager did recommend repeating endoscopy. She was scheduled for this today. [facility] also ordered CBC and fecal occult blood test. Patient's loose stool resolved with discontinuation of metformin. She was started on Jardiance instead however her diabetes is not responding as well to this. She wishes to be referred to endocrinology. - Colonoscopy and EGD - Repeat CBC - Fecal occult blood test - Follow-up after procedure Orders: Orders CBC W/Diff, Automated Today D64.9 - Anemia, unspecified Stool Occult Blood iFOB Today D64.9 - Anemia, unspecified Coding Level of Care Code Off vis,est,level 3 Diagnoses Anemia D64.9 Chronic diarrhea K52.9 Clinical Quality Measures Falls Risk Screening/Assistive Devices Have you fallen in the past year?: Yes 09/27/24 Matteo SMITH> Date _ Iman SMITH Cosigner Signature: Date (if applicable) CC: ~ [facility]08-07-2025 History of Present illness Narrative* Deino Alicea RN - 09/22/2024 11:00 AM EDT Arrival Note Infusion Patient is here for iron Labs were not ordered. 1220: Ordered treatment completed. Patient discharged without any issues. Patient has a copy of next infusion appointment and verbalizes understanding. All questions answered. documented in this [facility]07-24-2025 History of Present illness Narrative* Harry Serrano DO - 09/08/2024 10:30 AM EDT Hematology/Oncology Office Visit Consultation/Referral Reason: iron deficiency anemia Referred by: Dr. Marroquin Oncology history: 1) iron deficiency anemia 2) vitamin b12 deficiency 3) MGUS 4) PE and DVT, unprovoked HPI: Cata Ayers is a 74 y.o. female who comes in today for routine follow up for anemia, PE/DVT, and MGUS. Recall, in Feb 2022, the patient had lab work performed that showed anemia. Her iron levels were low. She denied any GI bleeding. She was referred to GI and EGD and colonoscopy were performed in June 2022 in [place]: records indicate she had one bleeding AVM in the colon and two in the ileum which were cauterized. EGD showed a small hiatal hernia. CT a/p was negative for malignancy. She was started on ferrous sulfate once daily and her iron deficiency improved. In April 2023, she was admitted for unprovoked bilateral PE and DVT. She was treated with Eliquis for 6 months and transitioned to Eliquis 2.5mg PO BID for lifelong anticoagulation. She was noted to have persistent anemia in May 2024. Hb 10.6. Cr 1.22. Calcium 9.1. Iron low normal. B12 low 268. SPEP showed IgG kappa of 0.36 g/dL. She started ferrous sulfate 325mg PO once dailyand vitamin b12 1000mcg PO once daily. Today, she is here for routine follow up and to review her labs from 08/25/24. She feels more tired and fatigued. Last visit we increased the PO iron to BID, however her hb went down to 9.9 and the iron remains low. She denies any GI bleeding, but her stools are black from the oral iron. She would like to establish with a new GI. The MGUS labs were stable. She is tolerating PO iron bid. No bleeding. No GI bleeding. No chest pain or shortness of breath. Tolerating Eliquis well. Weight stable. No other concerns today. She is accompanied by her daughter. 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 Underwood- no f/u Cscope indicated B12 deficiency 02/2021 Breast cancer screening 09/2020 defers rech as of 02/08 Chronic anticoagulation 2023 Eliquis Chronic diarrhea 2022 n/s colitis per Cscope- pt believe began after Choley, has been on Metformin for yrs Cystoid macular edema 2019 Schartman, Optho Elbow fracture, left 1954 Essential hypertension 2011 nml LVEF 12/09 ECHOcardiogram GERD with esophagitis 2012 EGD 07/[address] Underwood- HH w/ duodenitis H/O colonoscopy 06/2022 Dr Underwood- ileal AVMs cauterized- no need for rech History of renal stone 2006 IgG gammopathy 05/2024 Heme consult pnd Iron deficiency anemia 2022 Dr. Serrano consult- resolved on rx Left rotator cuff tear 2011 Lumbar disc disease 2005 MRI- right sciatica Post-cholecystectomy syndrome 2019 Pulmonary emboli (HCC) 04/2023 Bilat, d/t RLE DVT - lifelong OAC rec per Pulm Renal cyst [address] 04/10 Right leg DVT (HCC) 04/2023 post tibial w/ Bilat PE Type 2 diabetes mellitus (HCC) 2006 off rx for a few years, restarted 11/02 -[facility] Past Surgical History: Procedure Laterality Date CATARACT EXTRACTION Bilateral 2013 [facility] COLONOSCOPY 2012 Gopi COLONOSCOPY 06/2022 2 ileal AVMs treated per Dr Underwood- no f/u Cscope indicated COLONOSCOPY W/ POLYPECTOMY 06/2018 Dr Frost DILATION AND CURETTAGE OF UTERUS EGD (HISTORICAL) 06/2022 Dr. Underwood- Hiatal hernia w/ duodenitis LAP,CHOLECYSTECTOMY (HISTORICAL) 2017 Schleuter LITHOTRIPSY 2005 MENISCECTOMY Right 1980 PARTIAL HYSTERECTOMY 1981 DUB- ovaries remaining UPPER GASTROINTESTINAL ENDOSCOPY 2012 neg per Gopi Patient Active Problem List Diagnosis Date Noted IgG gammopathy 05/2024 Angioedema due to angiotensin converting enzyme inhibitor (SMILEY-I) 05/21/2023 Pulmonary emboli (HCC) 05/01/2023 Right leg DVT (HCC) 04/2023 Chronic anticoagulation 2023 Adrenal adenoma, left 09/03/2022 AVM (arteriovenous malformation) of colon 06/2022 Chronic diarrhea 2022 Iron deficiency anemia 2022 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/2021 B12 deficiency 02/21/2021 Essential hypertension 02/22/2020 Cystoid macular edema 06/20/2019 History of renal stone 12/20/2018 Renal cyst 12/20/2018 SMILEY-inhibitor cough 12/20/2018 GERD with esophagitis 10/22/2016 Lumbar disc disease 10/22/2016 Type 2 diabetes mellitus (HCC) 10/22/2016 Social History Tobacco Use Smoking status: Never Smokeless tobacco: Never Vaping Use Vaping status: Never Used Substance Use Topics Alcohol use: No Drug use: No Family History Problem Relation Name Age of Onset Rheum arthritis Mother mid 50s Prostate cancer Father age 76 Diabetes Sister Maria A insulin, CHF , 2022 age 78 Diabetes Sister Honey oral rx, alive age 74 Accidental Brother Saul MVA 40 Prostate cancer Brother Wyatt Arrhythmia Brother Mustapha PVCs Other ([id number]) Brother Tracey PAD, smoker- ischemic bowel w/ resection Heart failure Brother Tracey Diabetes Brother Tracey insulin, age 74 in 04/08 Diabetes Maternal Grandmother Diabetes Maternal Grandfather Diabetes Paternal Grandmother Diabetes Paternal Grandfather Allergies Allergen Reactions Kiwi Extract Swelling Mouth and lip swelling Other reaction(s): Swelling Lisinopril Angioedema Metformin Diarrhea GI distress Cat Dander Itching Seasonal Other Runny nose Current Outpatient Medications Medication Sig Dispense Refill apixaban (Eliquis) 2.5 MG tablet Take 1 tablet (2.5 mg) by mouth 2 times daily. 180 tablet 3 atorvastatin (Lipitor) 10 MG tablet TAKE 1 TABLET (10 MG) BY MOUTH DAILY. 90 tablet 1 cyanocobalamin (Vitamin B-12) 1000 MCG tablet Take 1 tablet (1,000 mcg) by mouth daily. 90 tablet 3 empagliflozin (Jardiance) 25 MG Take 1 tablet (25 mg) by mouth daily. 90 tablet 1 ferrous sulfate 325 (65 Fe) MG tablet Take 1 tablet (325 mg) by mouth 2 times daily. 180 tablet 1 glimepiride (Amaryl) 4 MG tablet Take 1 tablet (4 mg) by mouth 2 times daily. 180 tablet 1 losartan-hydroCHLOROthiazide (Hyzaar) 100-12.5 MG tablet TAKE 1 TABLET BY MOUTH EVERY DAY (Patient taking differently: Take 1 tablet by mouth daily. Patient breaking in half. One time daily.) 90 tablet 1 omeprazole (PriLOSEC) [address] capsule Take 1 capsule (40 mg) by mouth daily for 180 doses. 90 capsule 1 No current facility-administered medications for this visit. Review of Systems Constitutional: Positive for fatigue. Negative for appetite change, chills, diaphoresis, fever and unexpected weight change. HENT: Negative for dental problem, mouth sores, nosebleeds, sneezing, sore throat, tinnitus, trouble swallowing and voice change. Eyes: Negative for photophobia, pain and visual disturbance. Respiratory: Negative for cough, shortness of breath and wheezing. Cardiovascular: Negative for chest pain, palpitations and leg swelling. Gastrointestinal: Negative for abdominal distention, abdominal pain, blood in stool, constipation, diarrhea, nausea and vomiting. Endocrine: Negative for cold intolerance and heat intolerance. Genitourinary: Negative for difficulty urinating, frequency, hematuria and urgency. Musculoskeletal: Positive for arthralgias. Negative for back pain, gait problem and myalgias. Skin: Negative for pallor and rash. Allergic/Immunologic: Negative for immunocompromised state. Neurological: Negative for dizziness, syncope, weakness, light-headedness, numbness and headaches. Hematological: Negative for adenopathy. Does not bruise/bleed easily. Psychiatric/Behavioral: Negative for confusion and sleep disturbance. The patient is not nervous/anxious. All other systems reviewed and are negative. Vitals: 09/08/24 1034 BP: 133/55 BP Location: Right arm Patient Position: Sitting Pulse: 57 Temp: 36.6 C (97.8 F) TempSrc: Temporal SpO2: 99% Weight: 76.8 kg (169 lb 4.8 oz) Height: 1.6 m (5' 3) ECOG PS = 0 Physical Exam Vitals and nursing note reviewed. Constitutional: General: She is not in acute distress. HENT: Head: Normocephalic. Eyes: General: No scleral icterus. Conjunctiva/sclera: Conjunctivae normal. Cardiovascular: Rate and Rhythm: Normal rate and regular rhythm. Pulmonary: Effort: Pulmonary effort is normal. No respiratory distress. Abdominal: General: Abdomen is flat. There is no distension. Musculoskeletal: General: No swelling. Skin: Findings: No rash. Neurological: General: No focal deficit present. Mental Status: She is alert and oriented to person, place, and time. Psychiatric: Mood and Affect: Mood normal. Thought Content: Thought content normal. Imaging/Labs: Lab Requisition on 08/25/2024 Component Date Value Ref Range Status SODIUM - LEN 08/25/2024 141 128 - 145 mEq/L Final POTASSIUM - LEN 08/25/2024 3.6 3.6 - 5.1 mEq/L Final CHLORIDE - LEN 08/25/2024 106 98 - 108 mEq/L Final CARBON DIOXIDE - LEN 08/25/2024 28 18 - 33 mEq/L Final ANION GAP - LEN 08/25/2024 7.00 -4.00 - 12.00 mmol/L Final UREA NITROGEN - LEN 08/25/2024 24 (H) 7 - 22 mg/dL Final CREATININE - [facility] 08/25/2024 1.3 (H) 0.6 - 1.2 mg/dL Final GLUCOSE - [facility] 08/25/2024 127 (H) 73 - 118 mg/dL Final CALCIUM - [facility] 08/25/2024 9.7 8.0 - 10.3 mg/dL Final AST(SGOT) - [facility] 08/25/2024 20 11 - 38 U/L Final ALT - [facility] 08/25/2024 13 10 - 47 U/L Final ALKALINE PHOSPHATASE - [facility] 08/25/2024 45 42 - 141 U/L Final ALBUMIN - [facility] 08/25/2024 3.6 3.3 - 5.5 g/dL Final BILIRUBIN, TOTAL - [facility] 08/25/2024 0.6 0.2 - 1.6 mg/dL Final TOTAL PROTEIN - [facility] 08/25/2024 7.6 6.4 - 8.1 g/dL Final EGFR - [facility] 08/25/2024 42.7 (L) >60.0 mL/min/1.73m*2 Final Lab Results Component Value Date WBC 7.9 08/25/2024 HGB 9.9 (L) 08/25/2024 HCT 31.6 (L) 08/25/2024 MCV 89.3 08/25/2024 PLT 365 08/25/2024 Lab Results Component Value Date IRON 62 08/25/2024 TIBC 328 08/25/2024 FERRITIN 38 08/25/2024 Imaging Reviewed: Cardiac event monitor (14 days) The patient wore continuous telemetry for 13 days 9 hours and 24 minutes. The rhythm was sinus averaging 67 bpm with a minimum of 46 and a maximum of 132. There were no symptomatic transmissions. There were 121 PVCs for a burden of less than 1%. The PAC burden was 3%. No atrial fibrillation was seen. AV conduction was normal throughout there was no significant bradycardia seen Summary: Continuous telemetry demonstrates sinus rhythm averaging 67 bpm with a 3% PAC burden. - I have reviewed all available pertinent laboratory, imaging and pathology results with the patient and/or family members today. Assessment/Plan: Diagnosis Plan 1. Iron deficiency anemia due to chronic blood loss [facility] [place] [facility] [place] auto differential Iron and TIBC Ferritin CBC auto differential Iron and TIBC Ferritin 2. Vitamin B12 deficiency 3. MGUS (monoclonal gammopathy of unknown significance) 4. Pulmonary embolism, other, unspecified chronicity, unspecified whether acute cor pulmonale present (HCC) 1) iron deficiency anemia due to history of bleeding AVMs and hiatal hernia - poor response to ferrous sulfate 325mg PO BID - will arrange for Venofer 200mg IV weekly x 3. Potential side effects and anticipated benefits of Venofer were reviewed with the patient and they agreed to proceed with treatment. - refer to GI at [facility] for history of bleeding AVMs and iron deficiency - see orders for repeat labs in 3 months 2) b12 deficiency, improved - continue vitamin b12 1000mcg PO daily - monitor every 6-12 months 3) MGUS, IgG kappa 0.37 g/dL. - stable. Monitor in 6 months. 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 All questions were answered to the satisfaction of the patient and/or family. Return to office in 3 months to assess response to IV iron, or sooner if worrisome signs/symptoms arise. Harry Serrano DO Hematology/Medical Oncology documented in this [facility]07-24-2025 NoteHematology/Oncology Office Visit Consultation/Referral Reason: iron deficiency anemia Referred by: Dr. Marroquin Oncology history: 1) iron deficiency anemia 2) vitamin b12 deficiency 3) MGUS 4) PE and DVT, unprovoked HPI: Cata Ayers is a 74 y.o. female who comes in today for routine follow up for anemia, PE/DVT, and MGUS. Recall, in Feb 2022, the patient had lab work performed that showed anemia. Her iron levels were low. She denied any GI bleeding. She was referred to GI and EGD and colonoscopy were performed in June 2022 in [place]: records indicate she had one bleeding AVM in the colon and two in the ileum which were cauterized. EGD showed a small hiatal hernia. CT a/p was negative for malignancy. She was started on ferrous sulfate once daily and her iron deficiency improved. In April 2023, she was admitted for unprovoked bilateral PE and DVT. She was treated with Eliquis for 6 months and transitioned to Eliquis 2.5mg PO BID for lifelong anticoagulation. She was noted to have persistent anemia in May 2024. Hb 10.6. Cr 1.22. Calcium 9.1. Iron low normal. B12 low 268. SPEP showed IgG kappa of 0.36 g/dL. She started ferrous sulfate 325mg PO once daily and vitamin b12 1000mcg PO once daily. Today, she is here for routine follow up and to review her labs from 08/25/24. She feels more tired and fatigued. Last visit we increased the PO iron to BID, however her hb went down to 9.9 and the iron remains low. She denies any GI bleeding, but her stools are black from the oral iron. She would like to establish with a new GI. The MGUS labs were stable. She is tolerating PO iron bid. No bleeding. No GI bleeding. No chest pain or shortness of breath. Tolerating Eliquis well. Weight stable. No other concerns today. She is accompanied by her daughter. 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 Underwood- no f/u Cscope indicated B12 deficiency 02/2021 Breast cancer screening 09/2020 defers rech as of 02/08 Chronic anticoagulation 2023 Eliquis Chronic diarrhea 2022 n/s colitis per Cscope- pt believe began after Choley, has been on Metformin for yrs Cystoid macular edema 2019 Schartman, Optho Elbow fracture, left 1954 Essential hypertension 2011 nml LVEF 12/09 ECHOcardiogram GERD with esophagitis 2012 EGD 07/[address] Underwood- HH w/ duodenitis H/O colonoscopy 06/2022 Dr Underwood- ileal AVMs cauterized- no need for rech History of renal stone 2006 IgG gammopathy 05/2024 Heme consult pnd Iron deficiency anemia 2022 Dr. Maggie consult- resolved on rx Left rotator cuff tear 2012 Lumbar disc disease 2006 MRI- right sciatica Post-cholecystectomy syndrome 2019 Pulmonary emboli (HCC) 04/2023 Bilat, d/t RLE DVT - lifelong OAC rec per Pulm Renal cyst [address] 04/10 Right leg DVT (HCC) 04/2023 post tibial w/ Bilat PE Type 2 diabetes mellitus (HCC) 2006 off rx for a few years, restarted 11/02 -[facility] Past Surgical History: Procedure Laterality Date CATARACT EXTRACTION Bilateral 2013 [facility] COLONOSCOPY 2012 Gopi COLONOSCOPY 06/2022 2 ileal AVMs treated per Dr Underwood- odilon f/u Cscope indicated COLONOSCOPY W/ POLYPECTOMY 06/2018 Dr Frost DILATION AND CURETTAGE OF UTERUS EGD (HISTORICAL) 06/2022 Dr. Underwood- Hiatal hernia w/ duodenitis LAP,CHOLECYSTECTOMY (HISTORICAL) 2017 Schleuter LITHOTRIPSY 2006 MENISCECTOMY Right 1980 PARTIAL HYSTERECTOMY 1981 DUB- ovaries remaining UPPER GASTROINTESTINAL ENDOSCOPY 2012 neg per Gopi Patient Active Problem List Diagnosis Date Noted IgG gammopathy 05/2024 Angioedema due to angiotensin converting enzyme inhibitor (SMILEY-I) 05/21/2023 Pulmonary emboli (HCC) 05/01/2023 Right leg DVT (HCC) 04/2023 Chronic anticoagulation 2023 Adrenal adenoma, left 09/03/2022 AVM (arteriovenous malformation) of colon 06/2022 Chronic diarrhea 2022 Iron deficiency anemia 2022 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/2021 B12 deficiency 02/21/2021 Essential hypertension 02/22/2020 Cystoid macular edema 06/20/2019 History of renal stone 12/20/2018 Renal cyst 12/20/2018 SMILEY-inhibitor cough 12/20/2018 GERD with esophagitis 10/22/2016 Lumbar disc disease 10/22/2016 Type 2 diabetes mellitus (HCC) 10/22/2016 Social History Tobacco Use Smoking status: Never Smokeless tobacco: Never Vaping Use Vaping status: Never Used Substance Use Topics Alcohol use: No Drug use: No Family History Problem Relation Name Age of Onset Rheum arthritis Mother mid 50s Prostate cancer Father age 76 Diabetes Sister Maria A insulin, CHF , 2022 age 78 Diabetes Sister Honey oral rx, alive age 74 Accidental Brother Saul MVA 40 Prostate cancer Brother Wyatt Arrhythmia Brother Mustapha (more content not included)...[facility] [id number] History of Present illness Narrative* Aline Patiño RN - 08/25/2024 2:00 PM EDT ARRIVAL NOTE INFUSION Patient is here for lab draw 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 Site benign and patient tolerated well. Gauze and coban applied. 1403 Blood drawn per order and protocol, pt tolerated well. Denies concerns. DC home without complication. documented in this [facility]06-10-2025 History of Present illness Narrative* Harry Serrano, - 07/26/2024 10:15 AM EDT Hematology/Oncology Office Visit Consultation/Referral Reason: iron deficiency anemia Referred by: Dr. Marroquin Oncology history: 1) iron deficiency anemia 2) vitamin b12 deficiency 3) MGUS 4) PE and DVT, unprovoked HPI: Cata Ayers is a 74 y.o. female who comes in today to re-establish care for anemia. She was also recently found to have MGUS and PE/DVT. Recall, in Feb 2022, the patient had lab work performed that showed anemia. Her iron levels were low. She denied any GI bleeding. She was referred to GI and EGD and colonoscopy were performed in June 2022 in [place]: records indicate she had one bleeding AVM in the colon and two in the ileum which were cauterized. EGD showed a small hiatal hernia. CT a/p was negative for malignancy. She was started on ferrous sulfate once daily and her iron deficiency improved. She was lost to follow up with hematology. In April 2023, she was admitted for unprovoked bilateralPE and DVT. She was treated with Eliquis for 6 months and transitioned to Eliquis 2.5mg PO BID for lifelong anticoagulation. She was noted to have persistent anemia in May 2024. Hb 10.6. Cr 1.22. Calcium 9.1. Iron low normal. B12 low 268. SPEP showed IgG kappa of 0.36 g/dL. Today, she is here to re-establish care for her anemia. Since her last visit she found to have MGUSand PE/DVT as outlined above. She feels ok overall. Feels at her baseline. She is tolerating PO iron bid. No bleeding. No GI bleeding. No chest pain or shortness of breath. Tolerating Eliquis well. Weight stable. Mild fatigue. No other concerns today. 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 Asaf donald f/u Cscope indicated B12 deficiency 02/2021 Breast cancer screening 09/2020 defers rech as of 02/08 Chronic anticoagulation 2023 Eliquis Chronic diarrhea 2022 n/s colitis per Cscope- pt believe began after Choley, has been on Metformin for yrs Cystoid macular edema 2018 Karin, Roderick Elbow fracture, left 1953 Essential hypertension 2011 nml LVEF 12/09 ECHOcardiogram GERD with esophagitis 2012 EGD 07/[address] Underwood- HH w/ duodenitis H/O colonoscopy 06/2022 Dr Underwood- ileal AVMs cauterized- no need for rech History of renal stone 2006 IgG gammopathy 05/2024 Heme consult pnd Iron deficiency anemia 2022 Dr. Serrano consult- resolved on rx Left rotator cuff tear 2012 Lumbar disc disease 2006 MRI- right sciatica Post-cholecystectomy syndrome 2019 Pulmonary emboli (HCC) 04/2023 Bilat, d/t post tibial RLE DVT - lifelong OAC rec per Pulm Renal cyst [address] 04/10 Right leg DVT (HCC) 04/2023 post tibial w/ Bilat PE Type 2 diabetes mellitus (HCC) 2007 off rx for a few years, restarted 11/02 -[facility] Past Surgical History: Procedure Laterality Date CATARACT EXTRACTION Bilateral 2013 [facility] COLONOSCOPY 2012 Gopi COLONOSCOPY 06/2022 2 ileal AVMs treated per Dr Asaf donald f/u Cscope indicated COLONOSCOPY W/ POLYPECTOMY 06/2018 Dr Frost DILATION AND CURETTAGE OF UTERUS EGD (HISTORICAL) 06/2022 Dr. Underwood- Hiatal hernia w/ duodenitis LAP,CHOLECYSTECTOMY (HISTORICAL) 2017 Schleuter LITHOTRIPSY 2006 MENISCECTOMY Right 1980 PARTIAL HYSTERECTOMY 1981 DUB- ovaries remaining UPPER GASTROINTESTINAL ENDOSCOPY 2012 neg per Gopi Patient Active Problem List Diagnosis Date Noted IgG gammopathy 05/2024 Angioedema due to angiotensin converting enzyme inhibitor (SMILEY-I) 05/21/2023 Pulmonary emboli (HCC) 05/01/2023 Right leg DVT (HCC) 04/2023 Chronic anticoagulation 2023 Adrenal adenoma, left 09/03/2022 AVM (arteriovenous malformation) of colon 06/2022 Chronic diarrhea 2022 Iron deficiency anemia 2022 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/2021 B12 deficiency 02/21/2021 Essential hypertension 02/22/2020 Cystoid macular edema 06/20/2019 History of renal stone 12/20/2018 Renal cyst 12/20/2018 SMILEY-inhibitor cough 12/20/2018 GERD with esophagitis 10/22/2016 Lumbar disc disease 10/22/2016 Type 2 diabetes mellitus (HCC) 10/22/2016 Social History Tobacco Use Smoking status: Never Smokeless tobacco: Never Vaping Use Vaping status: Never Used Substance Use Topics Alcohol use: No Drug use: No Family History Problem Relation Name Age of Onset Rheum arthritis Mother mid 50s Prostate cancer Father age 76 Diabetes Sister Maria A insulin, CHF , 2022 age 78 Diabetes Sister Honey oral rx, alive age 74 Accidental Brother Saul MVA 40 Prostate cancer Brother Wyatt Arrhythmia Brother Mustapha PVCs Other ([id number]) Brother Tracey PAD, smoker- ischemic bowel w/ resection Heart failure Brother Tracey Diabetes Brother Tracey insulin, age 74 in 04/08 Diabetes Maternal Grandmother Diabetes Maternal Grandfather Diabetes Paternal Grandmother Diabetes Paternal Grandfather Allergies Allergen Reactions Kiwi Extract Swelling Mouth and lip swelling Other reaction(s): Swelling Lisinopril Angioedema Metformin Diarrhea GI distress Cat Dander Itching Seasonal Other Runny nose Current Outpatient Medications Medication Sig Dispense Refill apixaban (Eliquis) 2.5 MG tablet Take 1 tablet (2.5 mg) by mouth 2 times daily. 180 tablet 3 atorvastatin (Lipitor) 10 MG tablet TAKE 1 TABLET (10 MG) BY MOUTH DAILY. 90 tablet 1 empagliflozin (Jardiance) 25 MG Take 1 tablet (25 mg) by mouth daily. 90 tablet 1 glimepiride (Amaryl) 4 MG tablet Take 1 tablet (4 mg) by mouth 2 times daily. 180 tablet 1 losartan-hydroCHLOROthiazide (Hyzaar) 100-12.5 MG tablet TAKE 1 TABLET BY MOUTH EVERY DAY (Patient taking differently: Take 1 tablet by mouth daily. Patient breaking in half. One time daily.) 90 tablet 1 omeprazole (PriLOSEC) [address] capsule Take 1 capsule (40 mg) by mouth daily for 180 doses. 90 capsule 1 cyanocobalamin (Vitamin B-12) 1000 MCG tablet Take 1 tablet (1,000 mcg) by mouth daily. 90 tablet 3 ferrous sulfate 325 (65 Fe) MG tablet Take 1 tablet (325 mg) by mouth 2 times daily. 180 tablet 1 No current facility-administered medications for this visit. Review of Systems Constitutional: Positive for fatigue. Negative for appetite change, chills, diaphoresis, fever and unexpected weight change. HENT: Negative for dental problem, mouth sores, nosebleeds, sneezing, sore throat, tinnitus, trouble swallowing and voice change. Eyes: Negative for photophobia, pain and visual disturbance. Respiratory: Negative for cough, shortness of breath and wheezing. Cardiovascular: Negative for chest pain, palpitations and leg swelling. Gastrointestinal: Negative for abdominal distention, abdominal pain, blood in stool, constipation, diarrhea, nausea and vomiting. Endocrine: Negative for cold intolerance and heat intolerance. Genitourinary: Negative for difficulty urinating, frequency, hematuria and urgency. Musculoskeletal: Positive for arthralgias. Negative for back pain, gait problem and myalgias. Skin: Negative for pallor and rash. Allergic/Immunologic: Negative for immunocompromised state. Neurological: Negative for dizziness, syncope, weakness, light-headedness, numbness and headaches. Hematological: Negative for adenopathy. Does not bruise/bleed easily. Psychiatric/Behavioral: Negative for confusion and sleep disturbance. The patient is not nervous/anxious. All other systems reviewed and are negative. Vitals: 07/26/24 1017 07/26/24 1023 BP: (!) 147/63 138/72 BP Location: Right arm Right arm Patient Position: Sitting Sitting Pulse: 60 Temp: 36.6 C (97.8 F) TempSrc: Temporal SpO2: 99% Weight: 77.3 kg (170 lb 6.4 oz) Height: 1.6 m (5' 3) ECOG PS = 0 Physical Exam Vitals and nursing note reviewed. Constitutional: General: She is not in acute distress. Appearance: Normal appearance. She is not ill-appearing. HENT: Head: Normocephalic and atraumatic. Nose: Nose normal. Mouth/Throat: Pharynx: Oropharynx is clear. No oropharyngeal exudate or posterior oropharyngeal erythema. Eyes: General: No scleral icterus. Extraocular Movements: Extraocular movements intact. Conjunctiva/sclera: Conjunctivae normal. Pupils: Pupils are equal, round, and reactive to light. Cardiovascular: Rate and Rhythm: Normal rate and regular rhythm. Heart sounds: Normal heart sounds. No murmur heard. Pulmonary: Effort: Pulmonary effort is normal. No respiratory distress. Breath sounds: Normal breath sounds. No wheezing. Abdominal: General: Abdomen is flat. Bowel sounds are normal. There is no distension. Palpations: Abdomen is soft. There is no mass. Tenderness: There is no abdominal tenderness. There is no guarding. Musculoskeletal: General: No swelling or tenderness. Normal range of motion. Cervical back: Normal range of motion and neck supple. Right lower leg: No edema. Left lower leg: No edema. Lymphadenopathy: Cervical: No cervical adenopathy. Skin: General: Skin is warm and dry. Findings: No bruising or rash. Neurological: General: No focal deficit present. Mental Status: She is alert and oriented to person, place, and time. Mental status is at baseline. Psychiatric: Mood and Affect: Mood normal. Thought Content: Thought content normal. Imaging/Labs: No visits with results within 1 Month(s) from this visit. Latest known visit with results is: Office Visit on 06/14/2024 Component Date Value Ref Range Status Glucose 06/14/2024 258 (A) 70 - 100 mg/dL Final White Blood Cell Count 07/12/2024 6.8 3.8 - 10.8 Thousand/uL Final RBC 07/12/2024 3.65 (L) 3.80 - 5.10 Million/uL Final HEMOGLOBIN 07/12/2024 10.1 (L) 11.7 - 15.5 g/dL Final HEMATOCRIT 07/12/2024 32.8 (L) 35.0 - 45.0 % Final MCV 07/12/2024 89.9 80.0 - 100.0 fL Final MCH 07/12/2024 27.7 27.0 - 33.0 pg Final MCHC 07/12/2024 30.8 (L) 32.0 - 36.0 g/dL Final Comment: For adults, a slight decrease in the calculated MCHC value (in the range of 30 to 32 g/dL) is most likely not clinically significant; however, it should be interpreted with caution in correlation with other red cell parameters and the patient's clinical condition. RDW 07/12/2024 15.0 11.0 - 15.0 % Final Platelet Count 07/12/2024 376 140 - 400 Thousand/uL Final Mean Platelet Volume (MPV) 07/12/2024 9.0 7.5 - 12.5 fL Final Absolute Neutrophils 07/12/2024 3,495 1,500 - 7,800 cells/uL Final ABSOLUTE LYMPHOCYTES - [facility] 07/12/2024 2,666 850 - 3,900 cells/uL Final Monocytes Absolute 07/12/2024 381 200 - 950 cells/uL Final ABSOLUTE EOSINOPHILS - [facility] 07/12/2024 197 15 - 500 cells/uL Final ABSOLUTE BASOPHILS - [facility] 07/12/2024 61 0 - 200 cells/uL Final Neutrophils Relative 07/12/2024 51.4 % Final Lymphocytes Absolute 07/12/2024 39.2 % Final MONOCYTES - [facility] 07/12/2024 5.6 % Final EOSINOPHILS - [facility] 07/12/2024 2.9 % Final BASOPHILS - [facility] 07/12/2024 0.9 % Final GLUCOSE 07/12/2024 172 (H) 65 - 99 mg/dL Final Comment: Fasting reference interval For someone without known diabetes, a glucose value >125 mg/dL indicates that they may have diabetes and this should be confirmed with a follow-up test. Urea Nitrogen (BUN) 07/12/2024 22 7 - 25 mg/dL Final Creatinine 07/12/2024 1.29 (H) 0.60 - 1.00 mg/dL Final EGFR 07/12/2024 43 (L) > OR = 60 mL/min/1.73m2 Final BUN/CREATININE RATIO 07/12/2024 17 6 - 22 (calc) Final SODIUM 07/12/2024 138 135 - 146 mmol/L Final POTASSIUM 07/12/2024 3.9 3.5 - 5.3 mmol/L Final CHLORIDE 07/12/2024 100 98 - 110 mmol/L Final Carbon Dioxide (CO2) 07/12/2024 27 20 - 32 mmol/L Final ELECTROLYTE BALANCE 07/12/2024 11 7 - 17 mmol/L (calc) Final CALCIUM 07/12/2024 9.4 8.6 - 10.4 mg/dL Final Imaging Reviewed: Cardiac event monitor (14 days) The patient wore continuous telemetry for 13 days 9 hours and 24 minutes. The rhythm was sinus averaging 67 bpm with a minimum of 46 and a maximum of 132. There were no symptomatic transmissions. There were 121 PVCs for a burden of less than 1%. The PAC burden was 3%. No atrial fibrillation was seen. AV conduction was normal throughout there was no significant bradycardia seen Summary: Continuous telemetry demonstrates sinus rhythm averaging 67 bpm with a 3% PAC burden. - I have reviewed all available pertinent laboratory, imaging and pathology results with the patient and/or family members today. Assessment/Plan: Diagnosis Plan 1. Iron deficiency anemia due to chronic blood loss ferrous sulfate 325 (65 Fe) MG tablet cyanocobalamin (Vitamin B-12) 1000 MCG tablet CBC auto differential Comprehensive metabolic panel Iron and TIBC Ferritin Vitamin B12 Protein, Total and Protein Electrophoresis Immunofixation Electrophoresis K/L Qnt Free Light Chains with Ratio CBC auto differential Comprehensive metabolic panel Iron and TIBC Ferritin Vitamin B12 Protein, Total and Protein Electrophoresis Immunofixation Electrophoresis K/L Qnt Free Light Chains with Ratio 2. Vitamin B12 deficiency ferrous sulfate 325 (65 Fe) MG tablet cyanocobalamin (Vitamin B-12) 1000 MCG tablet CBC auto differential Comprehensive metabolic panel Iron and TIBC Ferritin Vitamin B12 Protein, Total and Protein Electrophoresis Immunofixation Electrophoresis K/L Qnt Free Light Chains with Ratio CBC auto differential Comprehensive metabolic panel Iron and TIBC Ferritin Vitamin B12 Protein, Total and Protein Electrophoresis Immunofixation Electrophoresis K/L Qnt Free Light Chains with Ratio 3. MGUS (monoclonal gammopathy of unknown significance) CBC auto differential Comprehensive metabolic panel Iron and TIBC Ferritin Vitamin B12 Protein, Total and Protein Electrophoresis Immunofixation Electrophoresis K/L Qnt Free Light Chains with Ratio CBC auto differential Comprehensive metabolic panel Iron and TIBC Ferritin Vitamin B12 Protein, Total and Protein Electrophoresis Immunofixation Electrophoresis K/L Qnt Free Light Chains with Ratio 1) iron deficiency anemia - increase ferrous sulfate to 325mg PO BID - follow up with GI as directed for the bleeding AVMs. Patient was advised that the AVMs can returnin the future, so we will need to continue to monitor for further bleeding. - see orders for repeat labs 2) b12 deficiency - start vitamin b12 1000mcg PO daily - monitor 3) MGUS - will compete work up. See labs. 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 All questions were answered to the satisfaction of the patient and/or family. Return to office in 6 weeks to review repeat lab work, or sooner if worrisome signs/symptoms arise. Harry Serrano DO Hematology/Medical Oncology documented in this [facility]06-10-2025 NoteHematology/Oncology Office Visit Consultation/Referral Reason: iron deficiency anemia Referred by: Dr. Marroquin Oncology history: 1) iron deficiency anemia 2) vitamin b12 deficiency 3) MGUS 4) PE and DVT, unprovoked HPI: Cata Ayers is a 74 y.o. female who comes in today to re-establish care for anemia. She was also recently found to have MGUS and PE/DVT. Recall, in Feb 2022, the patient had lab work performed that showed anemia. Her iron levels were low. She denied any GI bleeding. She was referred to GI and EGD and colonoscopy were performed in June 2022 in [place]: records indicate she had one bleeding AVM in the colon and two in the ileum which were cauterized. EGD showed a small hiatal hernia. CT a/p was negative for malignancy. She was started on ferrous sulfate once daily and her iron deficiency improved. She was lost to follow up with hematology. In April 2023, she was admitted for unprovoked bilateral PE and DVT. She was treated with Eliquis for 6 months and transitioned to Eliquis 2.5mg PO BID for lifelong anticoagulation. She was noted to have persistent anemia in May 2024. Hb 10.6. Cr 1.22. Calcium 9.1. Iron low normal. B12 low 268. SPEP showed IgG kappa of 0.36 g/dL. Today, she is here to re-establish care for her anemia. Since her last visit she found to have MGUS and PE/DVT as outlined above. She feels ok overall. Feels at her baseline. She is tolerating PO iron bid. No bleeding. No GI bleeding. No chest pain or shortness of breath. Tolerating Eliquis well. Weight stable. Mild fatigue. No other concerns today. 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 Asaf donald f/u Cscope indicated B12 deficiency 02/2021 Breast cancer screening 09/2020 defers rech as of 02/08 Chronic anticoagulation 2023 Eliquis Chronic diarrhea 2022 n/s colitis per Cscope- pt believe began after Choley, has been on Metformin for yrs Cystoid macular edema 2018 Schartman, Optho Elbow fracture, left 195 Essential hypertension 2012 nml LVEF 12/09 ECHOcardiogram GERD with esophagitis 2012 EGD 07/[address] Underwood- HH w/ duodenitis H/O colonoscopy 06/2022 Dr Underwood- ileal AVMs cauterized- no need for rech History of renal stone 2006 IgG gammopathy 05/2024 Heme consult pnd Iron deficiency anemia 2022 Dr. 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 Chronic diarrhea 2022 Iron deficiency anemia 2022 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/2021 B12 deficiency 02/21/2021 Essential hypertension 02/22/2020 Cystoid macular edema 06/20/2019 History of renal stone 12/20/2018 Renal cyst 12/20/2018 SMILEY-inhibitor cough 12/20/2018 GERD with esophagitis 10/22/2016 Lumbar disc disease 10/22/2016 Type 2 diabetes mellitus (HCC) 10/22/2016 Social History Tobacco Use Smoking status: Never Smokeless tobacco: Never Vaping Use Vaping status: Never Used Substance Use Topics Alcohol use: No Drug use: No Family History Problem Relation Name Age of Onset Rheum arthritis Mother mid 50s Prostate cancer Father age 76 Diabetes Sister Maria A insulin, CHF , 2022 age 78 Diabetes Sister Honey oral rx, alive age 74 Accidental Brother Saul MVA 40 Prostate cancer Brother Wyatt Arrhythmia Brother Mustapha PVCs Other ([id number]) Brother Estecayden PAD, smoker- ischemic bowel w/ resection Heart failure Brother Estel Diabetes Brother Estecayden insulin, age 74 in 04/08 Diabetes Maternal Grandmother Diabetes Maternal G (more content not included)...[facility] 07-19-2024 Telephone encounter Note* Telephone Encounter - Marli Jordan MA - 07/19/2024 2:11 PM EDT Patient advised and voiced understanding. [id number] Miscellaneous Notes* Telephone Encounter - Marli Jordan MA - 07/19/2024 2:11 PM EDT Patient advised and voiced understanding. * Telephone Encounter - Neeru Caballero - 07/19/2024 11:48 AM EDT Name of caller: Cata Contact phone number: [phone] Relationship to Patient: patient Provider: Dr. Marroquin Practice: [facility] Chief Complaint/Reason for Call: Patient called in asking why their apixaban (Eliquis) 2.5 MG tablet is the only medication the does not have a 90 day refill. Patient is asking if this could also be refilled for 90 days. Please advise. Best time of day caller can be reached: Any Patient advised that office/PCP has 24-48 business hours to return their call: No documented in this encounterSSelect [facility], [id number] Telephone encounter Note* Telephone Encounter - Neeru Caballero - 07/19/2024 11:48 AM EDT Name of caller: Cata Contact phone number: [phone] Relationship to Patient: patient Provider: Dr. Marroquin Practice: [facility] Chief Complaint/Reason for Call: Patient called in asking why their apixaban (Eliquis) 2.5 MG tablet is the only medication the does not have a 90 day refill. Patient is asking if this could also be refilled for 90 days. Please advise. Best time of day caller can be reached: Any Patient advised that office/PCP has 24-48 business hours to return their call: No [id number] Telephone encounter Note* Telephone Encounter - Eduard Carter LPN - 07/18/2024 11:47 AM EDT Last follow up: 12/03/2023 Next appointment: Visit date not found Allergies[1] Requested Prescriptions Pending Prescriptions Disp Refills apixaban (Eliquis) 2.5 MG tablet 60 tablet 3 Sig: Take 1 tablet (2.5 mg) by mouth 2 times daily. [1] Allergies Allergen Reactions Kiwi Extract Swelling Mouth and lip swelling Other reaction(s): Swelling Lisinopril Angioedema Cat Dander Itching Other Seasonal Other Runny nose [id number] Miscellaneous Notes* Telephone Encounter - Eduard Carter LPN - 07/18/2024 11:47 AM EDT Last follow up: 12/03/2023 Next appointment: Visit date not found Allergies[1] Requested Prescriptions Pending Prescriptions Disp Refills apixaban (Eliquis) 2.5 MG tablet 60 tablet 3 Sig: Take 1 tablet (2.5 mg) by mouth 2 times daily. [1] Allergies Allergen Reactions Kiwi Extract Swelling Mouth and lip swelling Other reaction(s): Swelling Lisinopril Angioedema Cat Dander Itching Other Seasonal Other Runny nose documented in this encounterSSelect [facility], [id number] Evaluation + Plan note* Assessment & Plan Note - Sada Mace PA-C - 07/12/2024 11:55 AM EDT Associated Problem(s): Type 2 diabetes mellitus (HCC) - Chronic and unstable but markedly improving. Patient is agreeable to get her blood work done today. She started back on Jardiance 25 mg daily and her sugars seem to be getting better her daily sugars are around 150 fasting and she is also on glimepiride 4 mg twice a day we will continue this and recheck in 3 months. [id number] Miscellaneous Notes* Assessment & Plan Note - Sada Mace PA-C - 07/12/2024 11:55 AM EDTAssociated Problem(s): Type 2 diabetes mellitus (HCC) - Chronic and unstable but markedly improving. Patient is agreeable to get her blood work done today. She started back on Jardiance 25 mg daily and her sugars seem to be getting better her daily sugars are around 150 fasting and she is also on glimepiride 4 mg twice a day we will continue this and recheck in 3 months. documented in this [facility]05-27-2025 History of Present illness Narrative* Sada Mace PA-C - 07/12/2024 11:40 AM EDT Images from the original note were not included. [facility] [address] [facility] [address] Dept: [phone] Dept Loc: [phone] Visit type: Established Patient Reason for Visit: Follow-up (6 wk change in dm medication ) Assessment and Plan 1. Type 2 diabetes mellitus with hyperglycemia, without long-term current use of insulin (HCC) Assessment & Plan: - Chronic and unstable but markedly improving. Patient is agreeable to get her blood work done today. She started back on Jardiance 25 mg daily and her sugars seem to be getting better her daily sugars are around 150 fasting and she is also on glimepiride 4 mg twice a day we will continue this and recheck in 3 months. Patient was on metformin in the past had severe GI side effects. She does not want to go back on that we talked about the possible use of GLP medications but for now she will stay on Jardiance no yeast infections or other issues she does states she is get a little dizzy from it but is willing to tolerate it for now and see if her sugars continue to get better control as long she continues to watch her diet. Follow up in about 3 months (around 10/12/2024), or with Dr. Marroquin for sugar control.. Subjective HPI this is a 74-year-old female underlying history of diabetes had previously stopped all of her diabetic medications. Sugar was out of control. Was last seen in the office approximately a month agofor concerns of having a syncopal episode. She was worked up in the emergency room. Unclear etiology of syncope she was started back on Jardiance for blood sugar control cardiac event monitor was ordered. Patient did start 12 days ago. She presents back to the office for follow-up. Checking sugars at home, but eating anything other than carbs still rising. States she is getting morning blood sugars around 150 she states is higher than she would like to be but it is much better than it has been in the past has been in the mid 200 range. She does report this mild dizziness thatseems to wax and wanes intensity she denies any fever chills nausea vomiting or any other acute issues. Review of Systems Constitutional: Negative for chills and fever. HENT: Negative for congestion and sore throat. Respiratory: Negative for cough and shortness of breath. Cardiovascular: Negative for chest pain. Gastrointestinal: Negative for abdominal pain, diarrhea, nausea and vomiting. Genitourinary: Negative for difficulty urinating, dysuria, frequency and urgency. Musculoskeletal: Negative for back pain. Neurological: Positive for dizziness and light-headedness. All other systems reviewed and are negative. Allergies[1] Current Medications[2] Medical History[3] Social History Tobacco Use Smoking status: Never Smokeless tobacco: Never Substance Use Topics Alcohol use: No Surgical History[4] Family History[5] Objective BP 125/63 (BP Location: Left arm, Patient Position: Sitting, BP Cuff Size: Adult long) Pulse 65 Temp 36.1 C (97 F) (Temporal) Ht 5' 3 (1.6 m) Wt 172 lb (78 kg) SpO2 100% BMI 30.47 kg/m Physical Exam Vitals reviewed. Constitutional: General: She is not in acute distress. Appearance: Normal appearance. She is not ill-appearing or toxic-appearing. Eyes: General: No scleral icterus. Conjunctiva/sclera: Conjunctivae normal. Pupils: Pupils are equal, round, and reactive to light. Neck: Vascular: No carotid bruit. Cardiovascular: Rate and Rhythm: Normal rate and regular rhythm. Heart sounds: Normal heart sounds. No murmur heard. Pulmonary: Effort: Pulmonary effort is normal. No respiratory distress. Breath sounds: Normal breath sounds. Musculoskeletal: Cervical back: Normal range of motion and neck supple. No rigidity or tenderness. Lymphadenopathy: Cervical: No cervical adenopathy. Skin: General: Skin is warm and dry. Neurological: Mental Status: She is alert. Psychiatric: Mood and Affect: Mood normal. Data Reviewed and Summarized Labs: Imaging/Testing: Sada Mace PA-C 07/12/2024 Please note that portions of this note may have been completed with voice recognition software. Documentation reviewed prior to signing but minor errors in proof coins inspector may have occurred. [1] Allergies Allergen Reactions Kiwi Extract Swelling Mouth and lip swelling Other reaction(s): Swelling Lisinopril Angioedema Cat Dander Itching Other Seasonal Other Runny nose [2] Current Outpatient Medications Medication Sig Dispense Refill atorvastatin (Lipitor) 10 MG tablet TAKE 1 TABLET (10 MG) BY MOUTH DAILY. 90 tablet 1 Eliquis 2.5 MG tablet TAKE 1 TABLET BY MOUTH 2 TIMES DAILY 60 tablet 3 empagliflozin (Jardiance) 25 MG Take 1 tablet (25 mg) by mouth daily. 90 tablet 1 ferrous sulfate 325 (65 Fe) MG tablet TAKE 1 TABLET BY MOUTH EVERY DAY WITH BREAKFAST 90 tablet 1 glimepiride (Amaryl) 4 MG tablet Take 1 tablet (4 mg) by mouth 2 times daily. 180 tablet 1 losartan-hydroCHLOROthiazide (Hyzaar) 100-12.5 MG tablet TAKE 1 TABLET BY MOUTH EVERY DAY 90 tablet1 omeprazole (PriLOSEC) [address] capsule Take 1 capsule (40 mg) by mouth daily for 180 doses. 90 capsule 1 scopolamine (Transderm-Scop) 1 MG/3DAYS patch [address] 1 patch on the skin every 3rd day as needed (nausea). 10 patch 0 No current facility-administered medications for this visit. 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 Underwood- no f/u Cscope indicated B12 deficiency 02/2021 Breast cancer screening 09/2020 defers rech as of 02/08 Chronic anticoagulation 2023 Eliquis Chronic diarrhea 2022 n/s colitis per Cscope- pt believe began after Choley, has been on Metformin for yrs Cystoid macular edema 2018 Schartman, Optho Elbow fracture, left 195 Essential hypertension 2011 GERD with esophagitis 2012 EGD 07/[address] Underwood- HH w/ duodenitis H/O colonoscopy 06/2022 Dr Underwood- ileal AVMs cauterized- no need for rech History of renal stone 2006 IgG gammopathy 05/2024 Heme consult pnd Iron deficiency anemia 2022 Dr. 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 Underwood- Hiatal hernia w/ duodenitis LAP,CHOLECYSTECTOMY (HISTORICAL) 2017 [place] LITHOTRIPSY 2006 MENISCECTOMY Right 1980 PARTIAL HYSTERECTOMY 1981 DUB- ovaries remaining UPPER GASTROINTESTINAL ENDOSCOPY 2012 neg per [facility] [5] Family History Problem Relation Name Age of Onset Rheum arthritis Mother mid 50s Prostate cancer Father age 76 Diabetes Sister Maria A insulin, CHF , 2022 age 78 Diabetes Sister Honey oral rx, alive age 74 Accidental Brother Saul MVA 40 Prostate cancer Brother Wyatt Arrhythmia Brother Mustapha PVCs Other ([id number]) Brother Estel PAD, smoker- ischemic bowel w/ resection Heart failure Brother Estel Diabetes Brother Estecayden insulin, age 74 in 04/08 Diabetes Maternal Grandmother Diabetes Maternal Grandfather Diabetes Paternal Grandmother Diabetes Paternal Grandfather documented in this [facility]05-20-2025 Telephone encounter Note* Telephone Encounter - Marli Jordan MA - 07/05/2024 3:53 PM EDT Recent Visits Date Type Provider Dept 06/14/24 Office Visit Sada Mace PA-C [facility] 06/07/24 Office Visit Sada Mace PA-C [facility] 05/25/24 Office Visit Alpesh Kathleen Marroquin, DO [facility] 01/26/24 Office Visit Alpesh Marroquin, DO [facility] 10/07/23 Office Visit Alpesh Kathleen Marroquin, DO [facility] Showing recent visits within past 365 days and meeting all other requirements Future Appointments Date Type Provider Dept 07/12/24 Appointment Sada Mace PA-C [facility] Showing future appointments within next 90 days and meeting all other requirements Requested Prescriptions Pending Prescriptions Disp Refills ferrous sulfate 325 (65 Fe) MG tablet [Pharmacy Med Name: FERROUS SULFATE 325 MG TABLET] 90 tablet 1 Sig: TAKE 1 TABLET BY MOUTH EVERY DAY WITH BREAKFAST Provider: Alpesh Marroquin DO Verified pharmacy: yes Verified day(s) supplied: yes Verified refill(s) needed (previous prescription showing no refills in chart): Yes Have you received any controlled medications from any other provider? N/A Overdue for visit: No If yes - patient scheduled? N/A Most recent labs completed in chart? N/A None [facility] [id number] Miscellaneous Notes* Telephone Encounter - Marli Jordan MA - 07/05/2024 3:53 PM EDT Recent Visits Date Type Provider Dept 06/14/24 Office Visit Sada Mace PA-C [facility] 06/07/24 Office Visit Sada Mace PA-C [facility] 05/25/24 Office Visit Alpesh Marroquin, DO [facility] 01/26/24 Office Visit Alpesh Kathleen Lopez, DO [facility] 10/07/23 Office Visit Alpesh Kathleen Lopez, DO [facility] Showing recent visits within past 365 days and meeting all other requirements Future Appointments Date Type Provider Dept 07/12/24 Appointment Sada Mace PA-C [facility] Showing future appointments within next 90 days and meeting all other requirements Requested Prescriptions Pending Prescriptions Disp Refills ferrous sulfate 325 (65 Fe) MG tablet [Pharmacy Med Name: FERROUS SULFATE 325 MG TABLET] 90 tablet 1 Sig: TAKE 1 TABLET BY MOUTH EVERY DAY WITH BREAKFAST Provider: Alpesh Marroquin DO Verified pharmacy: yes Verified day(s) supplied: yes Verified refill(s) needed (previous prescription showing no refills in chart): Yes Have you received any controlled medications from any other provider? N/A Overdue for visit: No If yes - patient scheduled? N/A Most recent labs completed in chart? N/A None documented in this [facility]04-29-2025 NoteReferral pended for dx and [facility] Telephone encounter Note * Telephone Encounter - Debi Mcpherson - 06/14/2024 1:23 PM EDT Referral pended for dx and doctor's signature [id number] Miscellaneous Notes* Telephone Encounter - Debi Mcpherson - 06/14/2024 1:23 PM EDT Referral pended for dx and doctor's signature * Telephone Encounter - Debi Mcpherson - 06/14/2024 1:20 PM EDT Images from the original note were not included. Carly Howard MA 06/14/2024 8:36 AM EDT Back to [facility] 06/14/2024 8:36 AM EDT Back to [facility] Spoke with pt and she consents to referral to Dr Serrano. Carly Howard MA 06/14/2024 8:36 AM EDT Spoke with pt and she consents to referral to Dr Serrano. Carly Howard MA 06/13/2024 9:34 AM EDT Tried to call pt and v/m was full. Pt was sent message in my chart Alpesh Marroquin DO 06/12/2024 10:24 AM EDT Patient has an elevated IgG protein which can be evidence of early multiple myeloma versus what is termed a benign monoclonal gammopathy. She needs a consultation with Dr. Serrano again to evaluate. Please post referral Carly Howard MA 06/06/2024 10:17 AM EDT Placed call to patient. Two patient identifers confirmed. Was able to speak to patient. All concerns in message have been addressed. No questions at this time. Call ended Alpesh Kathleen ShravanvikaDO layne 06/05/2024 8:12 PM EDT Patient has a slightly abnormal protein electrophoresis which could be sign of a bone marrow issue called multiple myeloma. Her immunoglobulins are normal but they are recommending further blood work. That has been ordered. Reviewing her record from a few years ago she saw hematology and she might have to touch base with them again if this lab test is abnormal. For now no new med changes and await additional lab work. documented in this [facility]04-29-2025 Telephone encounter Note* Telephone Encounter - Debi Mcpherson - 06/14/2024 1:20 PM EDT Images from the original note were not included. Carly Howard MA 06/14/2024 8:36 AM EDT Back to Top 06/14/2024 8:36 AM EDT Back to [facility] Spoke with pt and she consents to referral to Dr Serrano. Carly Howard MA 06/14/2024 8:36 AM EDT Spoke with pt and she consents to referral to Dr Serrano. Carly Howard MA 06/13/2024 9:34 AM EDT Tried to call pt and v/m was full. Pt was sent message in my chart Alpesh Kathleen DO Lopez 06/12/2024 10:24 AM EDT Patient has an elevated IgG protein which can be evidence of early multiple myeloma versus what is termed a benign monoclonal gammopathy. She needs a consultation with Dr. Serrano again to evaluate. Please post referral Carly Howard MA 06/06/2024 10:17 AM EDT Placed call to patient. Two patient identifers confirmed. Was able to speak to patient. All concerns in message have been addressed. No questions at this time. Call ended Alpesh Marroquin DO 06/05/2024 8:12 PM EDT Patient has a slightly abnormal protein electrophoresis which could be sign of a bone marrow issue called multiple myeloma. Her immunoglobulins are normal but they are recommending further blood work. That has been ordered. Reviewing her record from a few years ago she saw hematology and she might have to touch base with them again if this lab test is abnormal. For now no new med changes and await additional lab work. [id number] Telephone encounter Note* Telephone Encounter - Aria Medina LPN - 06/14/2024 11:27 AM EDT Talked to patient and reviewed message and she will wait on Bogdan's recommendation [id number] Miscellaneous Notes* Telephone Encounter - Aria Medina LPN - 06/14/2024 11:27 AM EDT Talked to patient and reviewed message and she will wait on Bogdan's recommendation * Telephone Encounter - Aria Medina LPN - 06/14/2024 10:36 AM EDT Will review message with patient at her appointment today. * Telephone Encounter - Carly Howard MA - 06/14/2024 8:36 AM EDT Spoke with pt and she says she just don't know what to do, she feels awful and no energy, she wanted to let you know she is seeing Sada Mace today. * Telephone Encounter - Aline Corbett MA - 06/13/2024 1:25 PM EDT Sent [employer] message * Telephone Encounter - Yumiko Riley RN - 06/13/2024 9:25 AM EDT S: Patient spoke with CAC nurse regarding medication reaction B: Onset of symptoms/concern A: Patient states she started empagliflozin (Jardiance) 25 MG 06/07/24. Patient had what she thinks was a reaction to the medication she started feeling faint,like she would pass out, her grandson called 911 and she was taken to ED at [facility] on Thursday. No notes available to review in chart. Patient states all labs were normal. Patient stopped taking the Jardiance as advised in ED. Patient states since then she does not have an appetite, and has been feeling weak. Patient's daughter is staying with her currently. R: Patient informed message would be sent to provider for review. ED follow up scheduled for tomorrow with Marleny Mace. Home care advice given, fluids encouraged. Patient informed message would be sentto provider for review. understands care advice. No further needs at this time. Patient instructed to call back with new or worsening symptoms. Reason for Disposition Caller has URGENT medicine question about med that PCP or specialist prescribed and triager unable to answer question Protocols used: Medication Question [id number] documented in this [facility]04-29-2025 History of Present illness Narrative* Sada Mace PA-C - 06/14/2024 11:20 AM EDT Images from the original note were not included. [facility] - [address] [facility] [address] Dept: [phone] Dept Loc: [phone] Visit type: Established Patient Reason for Visit: ER Follow-up (For medication reaction ) Assessment and Plan 1. Type 2 diabetes mellitus without complication, without long-term current use of insulin (HCC) - AMB POC GLUCOSE TEST - empagliflozin (Jardiance) 10 MG; Take 1 tablet (10 mg) by mouth daily., Starting Thu06/14/2024, Until Thu09/12/2024, Normal - CBC auto differential - Basic metabolic panel 2. Syncope, unspecified syncope type - Cardiac event monitor (14 days) - CBC auto differential - Basic metabolic panel Patient had what appeared to be a syncopal episode lasting no more than 30 seconds she appears stable here with no obvious signs of neurologic deficit although she does appear extremely fatigued and tired of unclear etiology I did review her most recent blood work her hemoglobin barely dropped from10.6-10.4. She is encouraged to follow-up with hematology due to the developing a gammopathy recently. Concern is that her sugars are out of control now she is stopped all of her medications her current sugar is 258. Strongly encouraged her to resume her medications we talked about going to a lowerdose of Jardiance as well as going back on the glimepiride I spoke at length with her family doctor Dr. Marroquin who discussed this at length and he is in agreements with the plan. I spent a total of 40 minutes on the date of the service which included preparing to see the patient, [id number] patient care, completing clinical documentation, performing a medically appropriate examination, counseling and educating the patient/family/caregiver, and ordering medications, tests,or procedures. No follow-ups on file. Subjective HPI Went to [place] [facility] on Thursday, blood work urine and EKG [place] in [place], after done shopping she had a syncope episode that lasted about 30 seconds. Sugar at that time was 224 and had episode of vomiting. Having issues with no energy no appetite and fatigue and just feeling wiped out. Was told blood work was fine and to stop taking the jardiance Patient presented to the ER 5 days ago for syncopal episode she was out shopping with her family members and sat down in her car and had an episode where she passed out for about 30 seconds in the back of the car and then came to there is no seizure activity she does not recall the event it happened very suddenly. EMS was called they state her sugar was fine at 224 there is no episodes of hypoglyc emia however due to the event she was taken to the ER for evaluation and workup. Workup in the ER was largely unremarkable I did review the blood work no CT of her brain was done however there is no history of injury or trauma she never complained of a headache EKG was read as normal urine was checked which is clean no signs of dehydration or infection she did have a slight elevation of her BUN/creatinine at 24 and 1.26. Review of Systems Constitutional: Positive for activity change, appetite change, fatigue and unexpected weight change. Negative for chills and fever. HENT: Negative for congestion and sore throat. Respiratory: Negative for cough and shortness of breath. Cardiovascular: Negative for chest pain. Gastrointestinal: Positive for diarrhea. Negative for abdominal pain, nausea and vomiting. Genitourinary: Negative for difficulty urinating, dysuria, frequency and urgency. Musculoskeletal: Negative for back pain. Neurological: Negative for dizziness and light-headedness. All other systems reviewed and are negative. Allergies Allergen Reactions Kiwi Extract Swelling Mouth and lip swelling Other reaction(s): Swelling Lisinopril Angioedema Cat Dander Itching Other Current Outpatient Medications Medication Sig Dispense Refill atorvastatin (Lipitor) 10 MG tablet TAKE 1 TABLET (10 MG) BY MOUTH DAILY. 90 tablet 1 Eliquis 2.5 MG tablet TAKE 1 TABLET BY MOUTH 2 TIMES DAILY 60 tablet 3 ferrous sulfate 325 (65 Fe) MG tablet Take 1 tablet (325 mg) by mouth daily (with breakfast). 60 tablet 2 losartan-hydroCHLOROthiazide (Hyzaar) 100-12.5 MG tablet TAKE 1 TABLET BY MOUTH EVERY DAY 90 tablet1 omeprazole (PriLOSEC) [address] capsule Take 1 capsule (40 mg) by mouth daily for 180 doses. 90 capsule 1 empagliflozin (Jardiance) 10 MG Take 1 tablet (10 mg) by mouth daily. 30 tablet 2 glimepiride (Amaryl) 4 MG tablet Take 1 tablet (4 mg) by mouth 2 times daily. 180 tablet 1 No current facility-administered medications for this visit. 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 Underwood- HH w/ duodenitis H/O colonoscopy 06/2022 Dr Underwood- ileal AVMs cauterized- no need for rech History of renal stone 2006 IgG gammopathy 05/2024 Heme consult pnd Iron deficiency anemia 2022 Dr. 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 Underwood- Hiatal hernia w/ duodenitis LAP,[facility] 2006 MENISCECTOMY Right 1980 PARTIAL HYSTERECTOMY 1981 DUB- ovaries remaining UPPER GASTROINTESTINAL ENDOSCOPY 2012 neg per [facility] Family History Problem Relation Name Age of Onset Rheum arthritis Mother mid 50s Prostate cancer Father age 76 Diabetes Sister Maria A insulin, CHF , 2022 age 78 Diabetes Sister Honey oral rx, alive age 74 Accidental Brother Saul MVA 40 Prostate cancer Brother Wyatt Arrhythmia Brother Mustapha PVCs Other ([id number]) Brother Estel PAD, smoker- ischemic bowel w/ resection Heart failure Brother Estel Diabetes Brother Estel insulin, age 74 in 04/08 Diabetes Maternal Grandmother Diabetes Maternal Grandfather Diabetes Paternal Grandmother Diabetes Paternal Grandfather Objective BP 127/62 Pulse 79 Temp 36.2 C (97.2 F) (Temporal) Ht 5' 3.5 (1.613 m) Wt 174 lb 9.6 oz (79.2 kg) SpO2 97% BMI 30.44 kg/m Physical Exam Vitals reviewed. Constitutional: General: She is not in acute distress. Appearance: Normal appearance. She is not ill-appearing or toxic-appearing. Eyes: General: No scleral icterus. Conjunctiva/sclera: Conjunctivae normal. Pupils: Pupils are equal, round, and reactive to light. Neck: Vascular: No carotid bruit. Cardiovascular: Rate and Rhythm: Normal rate and regular rhythm. Heart sounds: Normal heart sounds. No murmur heard. Pulmonary: Effort: Pulmonary effort is normal. No respiratory distress. Breath sounds: Normal breath sounds. No wheezing or rales. Abdominal: General: Bowel sounds are normal. There is no distension. Palpations: Abdomen is soft. Tenderness: There is no abdominal tenderness. There is no guarding. Musculoskeletal: Cervical back: Normal range of motion and neck supple. No rigidity. Lymphadenopathy: Cervical: No cervical adenopathy. Skin: General: Skin is warm and dry. Neurological: Mental Status: She is alert. Psychiatric: Mood and Affect: Mood normal. Data Reviewed and Summarized Labs: Imaging/Testing: Sada Mace PA-C 06/14/2024 Please note that portions of this note may have been completed with voice recognition software. Documentation reviewed prior to signing but minor errors in proof coins inspector may have occurred. documented in this encounterSSelect [facility], [id number] Telephone encounter Note* Telephone Encounter - Aria Medina LPN - 06/14/2024 10:36 AM EDT Will review message with patient at her appointment today. [id number] Telephone encounter Note* Telephone Encounter - Carly Howard MA - 06/14/2024 8:36 AM EDT Spoke with pt and she says she just don't know what to do, she feels awful and no energy, she wanted to let you know she is seeing Sada Mace today. [id number] Telephone encounter Note* Telephone Encounter - Aline Corbett MA - 06/13/2024 1:25 PM EDT Sent MyChart message [id number] Miscellaneous Notes* Telephone Encounter - Aline Corbett MA - 06/13/2024 1:25 PM EDT Sent MyChart message * Telephone Encounter - Yumiko Riley RN - 06/13/2024 9:25 AM EDT S: Patient spoke with CAC nurse regarding medication reaction B: Onset of symptoms/concern A: Patient states she started empagliflozin (Jardiance) 25 MG 06/07/24. Patient had what she thinks was a reaction to the medication she started feeling faint,like she would pass out, her grandson called 911 and she was taken to ED at [facility] on Thursday. No notes available to review in chart. Patient states all labs were normal. Patient stopped taking the Jardiance as advised in ED. Patient states since then she does not have an appetite, and has been feeling weak. Patient's daughter is staying with her currently. R: Patient informed message would be sent to provider for review. ED follow up scheduled for tomorrow with Marleny Mace. Home care advice given, fluids encouraged. Patient informed message would be sentto provider for review. understands care advice. No further needs at this time. Patient instructed to call back with new or worsening symptoms. Reason for Disposition Caller has URGENT medicine question about med that PCP or specialist prescribed and triager unable to answer question Protocols used: Medication Question [id number] documented in this encounterSSelect [facility], [id number] Telephone encounter Note* Telephone Encounter - Yumiko Riley RN - 06/13/2024 9:25 AM EDT S: Patient spoke with CAC nurse regarding medication reaction B: Onset of symptoms/concern A: Patient states she started empagliflozin (Jardiance) 25 MG 06/07/24. Patient had what she thinks was a reaction to the medication she started feeling faint,like she would pass out, her grandson called 911 and she was taken to ED at [facility] on Thursday. No notes available to review in chart. Patient states all labs were normal. Patient stopped taking the Jardiance as advised in ED. Patient states since then she does not have an appetite, and has been feeling weak. Patient's daughter is staying with her currently. R: Patient informed message would be sent to provider for review. ED follow up scheduled for tomorrow with Marleny Mace. Home care advice given, fluids encouraged. Patient informed message would be sentto provider for review. understands care advice. No further needs at this time. Patient instructed to call back with new or worsening symptoms. Reason for Disposition Caller has URGENT medicine question about med that PCP or specialist prescribed and triager unable to answer question Protocols used: Medication Question [id number] [facility] [id number] Evaluation + Plan note* Assessment & Plan Note - Sada Mace PA-C - 06/07/2024 3:10 PM EDTAssociated Problem(s): Type 2 diabetes mellitus (HCC) - Chronic and unstable did not tolerate the side effects of severe GI imbalance and diarrhea with metformin so she discontinued the metformin as well as the Actos and Amaryl. - Patient is agreeable to her other oral medications will consider starting on Jardiance versus Januvia and possibly would consider Rybelsus patient does not want an injectable medication at this time. [facility] [id number] Miscellaneous Notes* Assessment & Plan Note - Sada Mace PA-C - 06/07/2024 3:10 PM EDTAssociated Problem(s): Type 2 diabetes mellitus (HCC) - Chronic and unstable did not tolerate the side effects of severe GI imbalance and diarrhea with metformin so she discontinued the metformin as well as the Actos and Amaryl. - Patient is agreeable to her other oral medications will consider starting on Jardiance versus Januvia and possibly would consider Rybelsus patient does not want an injectable medication at this time. documented in this [facility]04-22-2025 History of Present illness Narrative* Sada Mace PA-C - 06/07/2024 10:40 AM EDT Images from the original note were not included. 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 Type 2 diabetes mellitus without complication, without long-term current use of insulin ([facility]) Assessment & Plan: - Chronic and unstable did not tolerate the side effects of severe GI imbalance and diarrhea with metformin so she discontinued the metformin as well as the Actos and Amaryl. - Patient is agreeable to her other oral medications will consider starting on Jardiance versus Januvia and possibly would consider Rybelsus patient does not want an injectable medication at this time. Orders: - empagliflozin (Jardiance) 25 MG; Take 1 tablet (25 mg) by mouth daily for 14 days., Starting Thu06/07/2024, Until Thu06/21/2024, Sample Patient's A1c has been climbing previously her medication was increased recently but she states shebecame relatively frustrated as she was doing some research online and feels that her bowel issues and her diarrhea were caused by the use of her multiple diabetic medications including but not limited to the use of metformin at 2000 mg daily. Since she has stopped some of her oral medications the symptoms of GI problems loose stools and cramping abdominal pain have resolved she is concerned now she wants her sugar under control so we talked about the use of Jardiance she was given a 2-week supply in the office to see how she tolerates the medication and then if she does well in a prescription but given to continue this and closely follow-up to see the response of her A1c. Follow up in about 6 weeks (around 07/19/2024) for DM f/u. Subjective HPI this is a 74-year-old female with underlying history of hypertension, history of pulmonary embolus on Eliquis, GERD, B12 deficiency and diabetes who was concerned that her blood sugar was elevated but did report stopping metformin. Patient contacted the triage yesterday for next a same-day acute evaluation for concerns of loose stool and diarrhea 5 times daily over the last 3 years. She did report that she stopped the metformin over a week ago with bowel movements decreasing to every 2 to 3days with more formation of her stool. But reports that her blood sugars are now running high from 140-160 Review of Systems Constitutional: Negative for chills and fever. Respiratory: Negative for cough and shortness of breath. Cardiovascular: Negative for chest pain. Gastrointestinal: Negative for abdominal pain, diarrhea, nausea and vomiting. Genitourinary: Positive for frequency. Negative for difficulty urinating, dysuria and urgency. Neurological: Negative for dizziness and light-headedness. All other systems reviewed and are negative. Allergies Allergen Reactions Kiwi Extract Swelling Mouth and lip swelling Other reaction(s): Swelling Lisinopril Angioedema Other Current Outpatient Medications Medication Sig Dispense Refill atorvastatin (Lipitor) 10 MG tablet TAKE 1 TABLET (10 MG) BY MOUTH DAILY. 90 tablet 1 dicyclomine (Bentyl) 10 MG capsule TAKE 1 CAPSULE BY MOUTH TWICE A DAY 180 capsule 1 Eliquis 2.5 MG tablet TAKE 1 TABLET BY MOUTH 2 TIMES DAILY 60 tablet 3 ferrous sulfate 325 (65 Fe) MG tablet Take 1 tablet (325 mg) by mouth daily (with breakfast). 60 tablet 2 losartan-hydroCHLOROthiazide (Hyzaar) 100-12.5 MG tablet TAKE 1 TABLET BY MOUTH EVERY DAY 90 tablet1 omeprazole (PriLOSEC) [address] capsule Take 1 capsule (40 mg) by mouth daily for 180 doses. 90 capsule 1 empagliflozin (Jardiance) 25 MG Take 1 tablet (25 mg) by mouth daily for 14 days. 14 tablet 0 No current facility-administered medications for this visit. 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 Asaf donald f/u Cscope indicated B12 deficiency 02/2021 Breast cancer screening 09/2020 defers rech as of 02/08 Chronic anticoagulation 2023 Eliquis Chronic diarrhea 2022 n/s colitis per Cscope Cystoid macular edema 2018 Roderick Frazier Elbow fracture, left 1953 Essential hypertension 2011 GERD with esophagitis 2012 EGD 07/[address] Underwood- HH w/ duodenitis H/O colonoscopy 06/2022 Dr Underwood- ileal AVMs cauterized- no need for rech History of renal stone 2005 Iron deficiency anemia 2022 Dr. 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 Underwood- Hiatal hernia w/ duodenitis LAP,CHOLECYSTECTOMY (HISTORICAL) 2017 Schleuter LITHOTRIPSY 2006 MENISCECTOMY Right 1980 PARTIAL HYSTERECTOMY 1982 DUB- ovaries remaining UPPER GASTROINTESTINAL ENDOSCOPY 2012 neg per G[facility] Family History Problem Relation Name Age of Onset Rheum arthritis Mother mid 50s Prostate cancer Father age 76 Diabetes Sister Maria A insulin, CHF , 2022 age 78 Diabetes Sister Honey oral rx, alive age 74 Accidental Brother Saul MVA 40 Prostate cancer Brother Wyatt Arrhythmia Brother Mustapha PVCs Other ([id number]) Brother Tracey PAD, smoker- ischemic bowel w/ resection Heart failure Brother Estecayden Diabetes Brother Tracey insulin, age 74 in 04/08 Diabetes Maternal Grandmother Diabetes Maternal Grandfather Diabetes Paternal Grandmother Diabetes Paternal Grandfather Objective BP 135/65 Pulse 54 Temp 36.2 C (97.1 F) (Temporal) Ht 5' 3.5 (1.613 m) Wt 179 lb 6.4 oz (81.4 kg) SpO2 95% BMI 31.28 kg/m Physical Exam Vitals reviewed. Constitutional: General: She is not in acute distress. Appearance: Normal appearance. She is not ill-appearing or toxic-appearing. Eyes: General: No scleral icterus. Conjunctiva/sclera: Conjunctivae normal. Pupils: Pupils are equal, round, and reactive to light. Cardiovascular: Rate and Rhythm: Normal rate and regular rhythm. Heart sounds: Normal heart sounds. No murmur heard. Pulmonary: Effort: Pulmonary effort is normal. No respiratory distress. Breath sounds: Normal breath sounds. No wheezing or rales. Abdominal: General: Bowel sounds are normal. There is no distension. Palpations: Abdomen is soft. Tenderness: There is no abdominal tenderness. There is no guarding. Musculoskeletal: Cervical back: Normal range of motion and neck supple. Skin: General: Skin is warm and dry. Neurological: Mental Status: She is alert. Psychiatric: Mood and Affect: Mood normal. Data Reviewed and Summarized Labs: Imaging/Testing: Sada Mace PA-C 06/07/2024 Please note that portions of this note may have been completed with voice recognition software. Documentation reviewed prior to signing but minor errors in proof coins inspector may have occurred. documented in this [facility]04-21-2025 Telephone encounter Note* Telephone Encounter - Carrie Ledesma RN - 06/06/2024 9:05 AM EDT S: Patient spoke with CAC nurse regarding diarrhea B: Onset of symptoms/concern A: Pt endorses loose stools or diarrhea up to 5 five daily for over 3 years. Pt endorses stopped Metformin over a week ago with bowel movement decrease to every 2-3 days with more formation. Pt endorses blood sugar high, between 140-160 without any carbohydrates. PT requesting office visit at this time. No known COVID/flu exposure, symptoms or recent vaccines. R: scheduled office visit 06/07/24, advise to arrive 10 min early with ID, insurance card and list of current mediations. No further needs at this time. Patient instructed to call back with new or worsening symptoms. Reason for Disposition Nursing judgment Appointment scheduled Protocols used: Information Only Call - No [id number] [id number] Miscellaneous Notes* Telephone Encounter - Carrie Ledesma RN - 06/06/2024 9:05 AM EDT S: Patient spoke with CAC nurse regarding diarrhea B: Onset of symptoms/concern A: Pt endorses loose stools or diarrhea up to 5 five daily for over 3 years. Pt endorses stopped Metformin over a week ago with bowel movement decrease to every 2-3 days with more formation. Pt endorses blood sugar high, between 140-160 without any carbohydrates. PT requesting office visit at this time. No known COVID/flu exposure, symptoms or recent vaccines. R: scheduled office visit 06/07/24, advise to arrive 10 min early with ID, insurance card and list of current mediations. No further needs at this time. Patient instructed to call back with new or worsening symptoms. Reason for Disposition Nursing judgment Appointment scheduled Protocols used: Information Only Call - No [id number] documented in this [facility]04-20-2025 Miscellaneous Notes* Addendum Note - Valorie Baez - 06/05/2024 8:10 PM EDTAddended by: VALORIE BAEZ on: 06/07/2024 11:40 AM Modules accepted: Orders documented in this [place] [address]-20-2025 Note* Addendum Note - Valorie Baez - 06/05/2024 8:10 PM EDTAddended by: VALORIE BAEZ on: 06/07/2024 11:40 AM Modules accepted: Orders [id number] Telephone encounter Note* Telephone Encounter - Aria Medina LPN - 05/30/2024 2:22 PM EDT Recent Visits Date Type Provider Dept 05/25/24 Office Visit Alpesh Marroquin, DO [facility] 01/26/24 Office Visit Alpesh Marroquin DO [facility] 10/07/23 Office Visit Alpesh Marroquin DO [facility] Showing recent visits within past 365 days and meeting all other requirements Future Appointments No visits were found meeting these conditions. Showing future appointments within next 90 days and meeting all other requirements Requested Prescriptions Pending Prescriptions Disp Refills dicyclomine (Bentyl) 10 MG capsule [Pharmacy Med Name: DICYCLOMINE 10 MG CAPSULE] 180 capsule 1 Sig: TAKE 1 CAPSULE BY MOUTH TWICE A DAY atorvastatin (Lipitor) 10 MG tablet [Pharmacy Med Name: ATORVASTATIN 10 MG TABLET] 90 tablet 1 Sig: TAKE 1 TABLET (10 MG) BY MOUTH DAILY. losartan-hydroCHLOROthiazide (Hyzaar) 100-12.5 MG tablet [Pharmacy Med Name: LOSARTAN-HCTZ 100-12.5MG TAB] 90 tablet 1 Sig: TAKE 1 TABLET BY MOUTH EVERY DAY Provider: Alpesh Marroquin DO Verified pharmacy: yes Verified day(s) supplied: yes Verified refill(s) needed (previous prescription showing no refills in chart): Yes Have you received any controlled medications from any other provider? N/A Overdue for visit: No If yes - patient scheduled? Yes Most recent labs completed in chart? Yes Hypertension: Lab Results Component Value Date NA 136 05/02/2023 K 3.9 05/02/2023 EGFR 46 (L) 05/25/2024 BUN 17 05/25/2024 CREATININE 1.22 (H) 05/25/2024 and Cholesterol: Lab Results Component Value Date CHOLESTEROLT 169 05/25/2024 HDLCHOLESTER 68 05/25/2024 TRIGLYCERIDE 148 05/25/2024 LDLCHOLESTER 76 05/25/2024 CHOLHDLCRATI 2.5 05/25/2024 NONHDLCHOLES 101 05/25/2024 [id number] Miscellaneous Notes* Telephone Encounter - Aria Medina LPN - 05/30/2024 2:22 PM EDT Recent Visits Date Type Provider Dept 05/25/24 Office Visit Alpesh Marroquin, DO [facility] 01/26/24 Office Visit Alpesh Marroquin DO [facility] 10/07/23 Office Visit Alpesh Marroquin DO [facility] Showing recent visits within past 365 days and meeting all other requirements Future Appointments No visits were found meeting these conditions. Showing future appointments within next 90 days and meeting all other requirements Requested Prescriptions Pending Prescriptions Disp Refills dicyclomine (Bentyl) 10 MG capsule [Pharmacy Med Name: DICYCLOMINE 10 MG CAPSULE] 180 capsule 1 Sig: TAKE 1 CAPSULE BY MOUTH TWICE A DAY atorvastatin (Lipitor) 10 MG tablet [Pharmacy Med Name: ATORVASTATIN 10 MG TABLET] 90 tablet 1 Sig: TAKE 1 TABLET (10 MG) BY MOUTH DAILY. losartan-hydroCHLOROthiazide (Hyzaar) 100-12.5 MG tablet [Pharmacy Med Name: LOSARTAN-HCTZ 100-12.5MG TAB] 90 tablet 1 Sig: TAKE 1 TABLET BY MOUTH EVERY DAY Provider: Alpesh Marroquin DO Verified pharmacy: yes Verified day(s) supplied: yes Verified refill(s) needed (previous prescription showing no refills in chart): Yes Have you received any controlled medications from any other provider? N/A Overdue for visit: No If yes - patient scheduled? Yes Most recent labs completed in chart? Yes Hypertension: Lab Results Component Value Date NA 136 05/02/2023 K 3.9 05/02/2023 EGFR 46 (L) 05/25/2024 BUN 17 05/25/2024 CREATININE 1.22 (H) 05/25/2024 and Cholesterol: Lab Results Component Value Date CHOLESTEROLT 169 05/25/2024 HDLCHOLESTER 68 05/25/2024 TRIGLYCERIDE 148 05/25/2024 LDLCHOLESTER 76 05/25/2024 CHOLHDLCRATI 2.5 05/25/2024 NONHDLCHOLES 101 05/25/2024 documented in this [facility]04-13-2025 Miscellaneous Notes* Addendum Note - Yancy Herndon - 05/29/2024 9:22 PM EDTAddended by: YANCY HERNDON on: 05/30/2024 01:51 PM Modules accepted: Orders documented in this [place] [address]-13-2025 Note* Addendum Note - Yancy Herndon - 05/29/2024 9:22 PM EDTAddended by: YANCY HERNDON on: 05/30/2024 01:51 PM Modules accepted: Orders [id number] NoteReferral pended for dx and doctor's [facility]04-[facility] Telephone encounter Note* Telephone Encounter - Debi Mcpherson - 05/26/2024 11:01 AM EDT Referral pended for dx and doctor's signature [place] [id number] Miscellaneous Notes* Telephone Encounter - Debi Mcpherson - 05/26/2024 11:01 AM EDT Referral pended for dx and doctor's signature documented in this [facility]04-09-2025 History of Present illness Narrative* Alpesh Marroquin DO - 05/25/2024 8:30 AM EDT Images from the original note were not included. [facility] [address] [facility] [id number] Visit type: Established Patient Reason for Visit: Follow-up (4 month follow up) Assessment / Plan: Cata was seen today for follow-up. Diagnoses and all orders for this visit: Type 2 diabetes mellitus without complication, without long-term current use of insulin (HCC) (Primary) Comments: Improved on Amaryl and metformin Orders: - Hemoglobin A1c; Future - Hemoglobin A1c Essential hypertension Comments: Stable on losartan/HCTZ Orders: - CBC auto differential; Future - Comprehensive metabolic panel; Future - CBC auto differential - Comprehensive metabolic panel Pulmonary embolism, other, unspecified chronicity, unspecified whether acute cor pulmonale present ([facility]) Comments: Stable on lifelong Eliquis Hypercholesterolemia Comments: Stable on Lipitor Orders: - Lipid panel; Future - Lipid panel Gastroesophageal reflux disease with esophagitis without hemorrhage Other iron deficiency anemia Comments: Unsure of etiology, check lab Orders: - Ferritin; Future - Sedimentation rate, automated; Future - Vitamin B12; Future - Iron and TIBC; Future - Protein, Total and Protein Electrophoresis - Ferritin - Sedimentation rate, automated - Vitamin B12 - Iron and TIBC Diarrhea due to malabsorption Comments: Uncontrolled, reviewed past GI workup including lab and colonoscopy. She desires second opinion. Other orders - omeprazole (PriLOSEC) [address] capsule; Take 1 capsule (40 mg) by mouth daily for 180 doses. Subjective: Patient ID: Cata Ayers is a 74 y.o. female. HPI better controlled type II diabetic with hypertension hyperlipidemia and chronic anticoagulationtherapy for history of PE presents for checkup. Glucose levels a few times a month are fair. A1c slightly above goal. No recent infections. Denies change in vision or skin. Ongoing diarrhea is a problem. Had GI workup [address] Underwood with nonspecific colitis. Initially got better with cholestyramine but not tolerable. Would like another opinion for her colitis. Has been on metformin for many years and diarrhea essentially started after her cholecystectomy. Does have more mucus in her stools. No substantial abdominal pain denies melena or blood. Review of Systems no night sweats fevers or chills. No recent antibiotic use. Denies cough or congestion. No exertional chest pain or palpitations. No claudication. Has trace pedal edema chronically.No breakthrough heartburn. No dysphagia. No dysuria or hematuria. No unhealing skin lesions. Rare arthralgias. Allergies Allergen Reactions Kiwi Extract Swelling Mouth and lip swelling Other reaction(s): Swelling Lisinopril Angioedema Other Current Outpatient Medications on File Prior to Visit Medication Sig Dispense Refill atorvastatin (Lipitor) 10 MG tablet Take 1 tablet (10 mg) by mouth daily. 90 tablet 1 dicyclomine (Bentyl) 10 MG capsule Take 10 mg by mouth 2 times daily. Eliquis 2.5 MG tablet TAKE 1 TABLET BY MOUTH 2 TIMES DAILY 60 tablet 3 ferrous sulfate 325 (65 Fe) MG tablet Take 1 tablet (325 mg) by mouth daily (with breakfast). 60 tablet 2 glimepiride (Amaryl) 4 MG tablet TAKE 1 TABLET (4 MG) BY MOUTH 2 TIMES DAILY 180 tablet 1 losartan-hydroCHLOROthiazide (Hyzaar) 100-12.5 MG tablet Decrease to one half tab q AM metFORMIN (Glucophage) 500 MG tablet Take 2 tablets (1,000 mg) by mouth 2 times daily. 360 tablet 1 [DISCONTINUED] omeprazole (PriLOSEC) [address] capsule Take 1 capsule (40 mg) by mouth daily for 180doses. 90 capsule 1 [DISCONTINUED] cholestyramine (Questran) 4 g packet MIX AND TAKE 1 PACKET (4 G) BY MOUTH DAILY. (Patient not taking: Reported on 05/25/2024) 90 packet 1 No current facility-administered medications on file prior to visit. Patient Active Problem List Diagnosis History of renal stone Renal cyst Essential hypertension Cystoid macular edema Post-cholecystectomy syndrome B12 deficiency SMILEY-inhibitor cough GERD with esophagitis Lumbar disc disease Type 2 diabetes mellitus (HCC) AVM (arteriovenous malformation) of colon Adrenal adenoma, left Pulmonary emboli (HCC) Right leg DVT (HCC) Angioedema due to angiotensin converting enzyme inhibitor (SMILEY-I) Social History Tobacco Use Smoking status: Never Smokeless tobacco: Never Substance Use Topics Alcohol use: No Past Surgical History: Procedure Laterality Date CATARACT EXTRACTION Bilateral 2013 [facility] COLONOSCOPY 2012 [place] COLONOSCOPY 06/2022 2 ileal AVMs treated per Dr Underwood- odilon f/u Cscope indicated COLONOSCOPY W/ POLYPECTOMY 06/2018 Dr Frost DILATION AND CURETTAGE OF UTERUS EGD (HISTORICAL) 06/2022 Dr. Underwood- Hiatal hernia w/ duodenitis LAP,CHOLECYSTECTOMY (HISTORICAL) 2017 Schleuter LITHOTRIPSY 2006 MENISCECTOMY Right 1980 PARTIAL HYSTERECTOMY 1981 DUB- ovaries remaining UPPER GASTROINTESTINAL ENDOSCOPY 2012 neg per Gopi Family History Problem Relation Name Age of Onset Rheum arthritis Mother mid 50s Prostate cancer Father age 76 Diabetes Sister Maria A insulin, CHF , 2022 age 78 Diabetes Sister Honey oral rx, alive age 74 Accidental Brother Saul MVA 40 Prostate cancer Brother Wyatt Arrhythmia Brother Mustapha PVCs Other ([id number]) Brother Tracey PAD, smoker- ischemic bowel w/ resection Heart failure Brother Estecayden Diabetes Brother Tracey insulin, age 74 in 04/08 Diabetes Maternal Grandmother Diabetes Maternal Grandfather Diabetes Paternal Grandmother Diabetes Paternal Grandfather Objective: BP 130/78 Pulse 64 Temp 36.1 C (96.9 F) (Temporal) Ht 5' 3.5 (1.613 m) Wt 182 lb (82.6 kg) SpO2 97% BMI 31.73 kg/m Physical Exam very pleasant cooperative. Well-hydrated. No neck masses JVD or adenopathy. Normal oropharynx. No thyroid lesions or carotid bruits. Heart is regular without gallops or murmurs. Lungs are clear. Abdomen obese nontender without pain hepatosplenomegaly masses or bruits. No ascites. Femoral pedal pulses are adequate. Trace ankle edema noted. No motor or sensory loss. documented in this [facility]02-18-2025 Telephone encounter Note* Telephone Encounter - Nika Caal RN - 04/05/2024 8:34 AM EST Last follow up: 12/03/2023 Next appointment: Visit date not found Allergies Allergen Reactions Kiwi Extract Swelling Mouth and lip swelling Other reaction(s): Swelling Lisinopril Angioedema Other Requested Prescriptions Pending Prescriptions Disp Refills Eliquis 2.5 MG tablet [Pharmacy Med Name: ELIQUIS 2.5 MG TABLET] 60 tablet 3 Sig: TAKE 1 TABLET BY MOUTH 2 TIMES DAILY [id number] Miscellaneous Notes* Telephone Encounter - Nika Caal RN - 04/05/2024 8:34 AM EST Last follow up: 12/03/2023 Next appointment: Visit date not found Allergies Allergen Reactions Kiwi Extract Swelling Mouth and lip swelling Other reaction(s): Swelling Lisinopril Angioedema Other Requested Prescriptions Pending Prescriptions Disp Refills Eliquis 2.5 MG tablet [Pharmacy Med Name: ELIQUIS 2.5 MG TABLET] 60 tablet 3 Sig: TAKE 1 TABLET BY MOUTH 2 TIMES DAILY documented in this [facility]01-14-2025 History of Present illness Narrative* Aline Corbett MA - 03/01/2024 10:00 AM EST Images from the original note were not included. [address] [place] [address] [address] [facility] [phone] @[email or web address]@ Patient arrived for nurse visit today. Two patient identifiers used to confirm correct patient yes Supervising provider for clinic visit Dr. Marroquin is taking Losartan- hydrochlorothiazide 100-12.5mg for hypertension with excellent compliance and dizziness an nausea side effects regular Shortness of breath no Medication compliance yes Medication Reconciliation yes BP Medication taken prior to visit yes at what time 9:00an B/P Reading taken manual Home Monitoring yes Patient advised if follow up is needed, outreach will occur in 48 hours BP:128/60 HR:60 * Alpesh Marroquin DO - 03/01/2024 10:00 AM EST BP ok, no rx change nec documented in this [facility]01-13-2025 Telephone encounter Note* Telephone Encounter - Marli Jordan MA - 02/29/2024 2:33 PM EST Recent Visits Date Type Provider Dept 01/26/24 Office Visit Alpesh Marroquin DO [facility] 10/07/23 Office Visit Alpesh Marroquin DO [facility] 05/21/23 Office Visit Alpesh Marroquin, DO [facility] 05/01/23 Office Visit Alpesh Marroquin, DO [facility] 04/07/23 Office Visit Alpesh Marroquin, DO [facility] Showing recent visits within past 365 days and meeting all other requirements Future Appointments Date Type Provider Dept 05/25/24 Appointment Alpesh MarroquinDO [facility] Showing future appointments within next 90 days and meeting all other requirements Requested Prescriptions Pending Prescriptions Disp Refills glimepiride (Amaryl) 4 MG tablet [Pharmacy Med Name: GLIMEPIRIDE 4 MG TABLET] 180 tablet 1 Sig: TAKE 1 TABLET (4 MG) BY MOUTH 2 TIMES DAILY Provider: Alpesh Marroquin DO Verified pharmacy: yes Verified day(s) supplied: yes Verified refill(s) needed (previous prescription showing no refills in chart): Yes Have you received any controlled medications from any other provider? N/A Overdue for visit: No If yes - patient scheduled? N/A Most recent labs completed in chart? N/A None [id number] Miscellaneous Notes* Telephone Encounter - Marli Jordan MA - 02/29/2024 2:33 PM EST Recent Visits Date Type Provider Dept 01/26/24 Office Visit Alpesh Marroquin, DO [facility] 10/07/23 Office Visit Alpesh Marroquin, DO [facility] 05/21/23 Office Visit Alpesh Marroquin, DO [facility] 05/01/23 Office Visit Alpesh Marroquin DO [facility] 04/07/23 Office Visit Alpesh Marroquin DO [facility] Showing recent visits within past 365 days and meeting all other requirements Future Appointments Date Type Provider Dept 05/25/24 Appointment Alpesh MarroquinDO [facility] Showing future appointments within next 90 days and meeting all other requirements Requested Prescriptions Pending Prescriptions Disp Refills glimepiride (Amaryl) 4 MG tablet [Pharmacy Med Name: GLIMEPIRIDE 4 MG TABLET] 180 tablet 1 Sig: TAKE 1 TABLET (4 MG) BY MOUTH 2 TIMES DAILY Provider: Alpesh Marroquin DO Verified pharmacy: yes Verified day(s) supplied: yes Verified refill(s) needed (previous prescription showing no refills in chart): Yes Have you received any controlled medications from any other provider? N/A Overdue for visit: No If yes - patient scheduled? N/A Most recent labs completed in chart? N/A None documented in this [facility]12-10-2024 History of Present illness Narrative* Alpesh Marroquin DO - 01/26/2024 1:00 PM EST Images from the original note were not included. [facility] - [address] [facility] [phone] Visit type: Established Patient Reason for Visit: Follow-up (Med check) Assessment / Plan: Cata was seen today for follow-up. Diagnoses and all orders for this visit: Type 2 diabetes mellitus without complication, without long-term current use of insulin ([facility] ([facility]) (Primary) Comments: Stable, continue metformin and glimepiride Orders: - CBC auto differential; Future - Comprehensive metabolic panel; Future - Hemoglobin A1c; Future - CBC auto differential - Comprehensive metabolic panel - Hemoglobin A1c Essential hypertension Comments: I can go, restart one half losartan tablet, BP check 4 weeks, stop amlodipine Pulmonary embolism, other, unspecified chronicity, unspecified whether acute cor pulmonale present ([facility]) Comments: Stable, continue Eliquis indefinitely Hypercholesterolemia Comments: Stable, continue Lipitor Post-cholecystectomy syndrome Comments: Stable, continue Questran Other orders - Flu vaccine (FLUAD), trivalent, adjuvanted, preservative-free (ages 65+) - losartan-hydroCHLOROthiazide (Hyzaar) 100-12.5 MG tablet; Decrease to one half tab q AM Subjective: Patient ID: Cata Ayers is a 73 y.o. female. HPI fairly well-controlled type II diabetic presents for checkup. Of note was getting lightheaded with amlodipine and losartan she stopped those a week or 2 ago. Feeling better. Glucose levels are stable. Weight is stable. Trying to follow better eating habits. No change in vision or skin. 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 Feels lifelong Eliquis is necessary at lower dosages. No recurrent right calf pain or swelling. No shortness of breath with exertion, chest pain or palpitations. Review of Systems no change in vision. She denies recent sore throat cough phlegm or fever. No pleurisy. No heartburn on meds. Bowels are intermittently loose. Reviewed past upper and lower endoscopyfrom last year. No complications of melena or blood. Questran and dicyclomine are somewhat helpful for intermittent loose stools. No further endoscopy planned. Was slightly anemic last fall and saw Dr. Serrano. Did respond somewhat to iron. Overdue for some lab work. Denies substantial shortness of breath or fatigue. Allergies Allergen Reactions Kiwi Extract Swelling Mouth and lip swelling Other reaction(s): Swelling Lisinopril Angioedema Other Current Outpatient Medications on File Prior to Visit Medication Sig Dispense Refill apixaban (Eliquis) 2.5 MG tablet Take 1 tablet (2.5 mg) by mouth 2 times daily. 60 tablet 3 atorvastatin (Lipitor) 10 MG tablet Take 1 tablet (10 mg) by mouth daily. 90 tablet 1 cholestyramine (Questran) 4 g packet MIX AND TAKE 1 PACKET (4 G) BY MOUTH DAILY. 90 packet 1 dicyclomine (Bentyl) 10 MG capsule Take 1 capsule (10 mg) by mouth 2 times daily for 360 doses. 180capsule 1 glimepiride (Amaryl) 4 MG tablet Take 1 tablet (4 mg) by mouth 2 times daily. 180 tablet 1 metFORMIN (Glucophage) 500 MG tablet Take 2 tablets (1,000 mg) by mouth 2 times daily. 360 tablet 1 omeprazole (PriLOSEC) [address] capsule Take 1 capsule (40 mg) by mouth daily for 180 doses. 90 capsule 1 [DISCONTINUED] amLODIPine (Norvasc) 10 MG tablet Take 1 tablet (10 mg) by mouth daily for 180 doses. (Patient not taking: Reported on 01/26/2024) 90 tablet 1 [DISCONTINUED] losartan-hydroCHLOROthiazide (Hyzaar) 100-12.5 MG tablet Take 1 tablet by mouth daily. (Patient not taking: Reported on 01/26/2024) 90 tablet 1 No current facility-administered medications on file prior to visit. Patient Active Problem List Diagnosis History of renal stone Renal cyst Essential hypertension Cystoid macular edema Post-cholecystectomy syndrome B12 deficiency SMILEY-inhibitor cough GERD with esophagitis Lumbar disc disease Type 2 diabetes mellitus (HCC) AVM (arteriovenous malformation) of colon Adrenal adenoma, left Pulmonary emboli (HCC) Right leg DVT (HCC) Angioedema due to angiotensin converting enzyme inhibitor (SMILEY-I) Social History Tobacco Use Smoking status: Never Smokeless tobacco: Never Substance Use Topics Alcohol use: No Past Surgical History: Procedure Laterality Date CATARACT EXTRACTION Bilateral 2014 [facility] COLONOSCOPY 2012 [facility] COLONOSCOPY 06/2022 2 ileal AVMs treated per Dr Underwood- odilon f/u Cscope indicated COLONOSCOPY W/ POLYPECTOMY 06/2018 Dr Frost DILATION AND CURETTAGE OF UTERUS EGD (HISTORICAL) 06/2022 Dr. Underwood- Hiatal hernia w/ duodenitis LAP,CHOLECYSTECTOMY (HISTORICAL) 2017 [facility]leuter LITHOTRIPSY 2006 MENISCECTOMY Right 1980 PARTIAL HYSTERECTOMY 1981 DUB- ovaries remaining UPPER GASTROINTESTINAL ENDOSCOPY 2012 neg per [facility] Family History Problem Relation Name Age of Onset Rheum arthritis Mother mid 50s Prostate cancer Father age 76 Diabetes Sister Maria A insulin, CHF , 2022 age 78 Diabetes Sister Honey oral rx, alive age 74 Accidental Brother Saul MVA 40 Prostate cancer Brother Wyatt Arrhythmia Brother Mustapha PVCs Other ([id number]) Brother Tracey PAD, smoker- ischemic bowel w/ resection Heart failure Brother Estel Diabetes Brother Estecayden insulin, age 74 in 04/08 Diabetes Maternal Grandmother Diabetes Maternal Grandfather Diabetes Paternal Grandmother Diabetes Paternal Grandfather Objective: BP (!) 157/73 (BP Location: Left arm, Patient Position: Sitting, BP Cuff Size: Large adult) Pulse58 Temp 37 C (98.6 F) (Temporal) Ht 5' 3.5 (1.613 m) Wt 180 lb (81.6 kg) SpO2 92% BMI 31.39 kg/m Physical Exam exam is unchanged. Blood pressure is too high. Not tachycardic. Nonicteric. Moist mucous membranes. No neck masses adenopathy or thyroid lesions. No carotid bruits. Heart is regular without ectopy. Lungs are diminished but clear of rales wheezes or egophony. Abdomen without pain hepato splenomegaly or masses or ascites. Femoral pedal pulses are good. Mild cast and foot edema more on the right leg. Nontender. Some. She is noted. Pulses are adequate. No skin breakdowns. There is no motor or sensory loss of the legs feet or toes documented in this [facility]10-17-2024 History of Present illness Narrative* Ayaan Lara MD - 12/03/2023 10:15 AM EDT [facility] [place] [address] [place] [address] FOLLOW UP VISIT-PULMONARY 12/03/2023 FOLLOW UP FOR: PE ASSESSMENT AND PLAN: 1. Pulmonary embolism, other, unspecified chronicity, unspecified whether acute cor pulmonale present (HCC) Following up for PE, doing well today. Echo reassuring A study, which followed patients after a first episode of acute PE, found that the recurrence rate after discontinuation of treatment was 4.5% per year after PE occurring in the absence of known cancer, known thrombophilia, or any transient risk factor. - Detailed discussion regarding risks and benefits of anticoagulation. According to ACCP guidelines, recommend extended phase anticoagulation for single, unprovoked VTE episode. She is agreeable. - switch Eliquis to half dose, prescribed Eliquis 2.5 mg BID. History of Present Illness Cata Ayers is a 73 y.o. female with pmh of HTN, DMII, GERD, history of PE, colonic AVM treated withcautery via colonoscopy in 06/2022 Acute pulmonary embolism 05/01/2023 after initially presenting with shortness of breath for several weeks. Before that she thinks she had a viral URI and was treated with antibiotics by her PCP. Denies chest pain or palpitations. No syncope. At times lightheaded. Overall low risk PE not requiring supplemental oxygen. Negative troponin and BNP. Pesi score largely driven by age. PE overall low risk. On Eliquis. Setting: unprovoked. Symptoms: No significant ADAMSON. Cancer screening up to date CTA Chest 05/01/2023: 1. Bilateral pulmonary emboli. The RV/LV ratio is 0.7. This is considered normal*. 2. No consolidation or pleural effusion. 3.. Dilated main pulmonary artery; correlate for possible pulmonary hypertension. Echo 11/17/2023 (Images were personally reviewed and independently interpreted by me.) Left Ventricle: Left ventricle size is normal. Mildly increased wall thickness. Normal left ventricular systolic function. EF by 2D Simpsons Biplane is 58%. Global longitudinal strain is normal with a value of -17.0%. Normal wall motion. Right Ventricle: Right ventricle size is normal. Normal systolic function. Tricuspid Valve: Unable to assess RVSP due to insignificant tricuspid regurgitation. No significant valvular abnormalities. US DVT Acute non-occlusive deep vein thrombosis in the right posterior tibial vein. 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 Underwood- no f/u Cscope indicated B12 deficiency 02/2021 Breast cancer screening 09/2020 prefers every other year. Chronic diarrhea 2022 n/s colitis per Cscope Cystoid macular edema 2018 Schartman, Optho Elbow fracture, left 195 Essential hypertension 2012 GERD with esophagitis 2012 EGD 07/[address] Underwood- HH w/ duodenitis H/O colonoscopy 06/2022 Dr Underwood- ileal AVMs cauterized- no need for rech History of renal stone 2006 Iron deficiency anemia 2022 Dr. Serrano consult- resolved Left rotator cuff tear 2012 Lumbar disc disease 2006 MRI- right sciatica Post-cholecystectomy syndrome 2019 Pulmonary emboli (HCC) 04/2023 Bilat, RLE DVT- post tibial Renal cyst [address] 04/10 Right leg DVT (HCC) 04/2023 post tibial w/ Bilat PE Type 2 diabetes mellitus (HCC) 2007 off rx for a few years, restarted 11/02 -[facility] Past Surgical History Past Surgical History: Procedure Laterality Date CATARACT EXTRACTION Bilateral 2013 [facility] COLONOSCOPY 06/2018 Dr Frost- few polyps- due 2023 COLONOSCOPY 2012 [place] COLONOSCOPY 06/2022 2 ileal AVMs treated per Dr Asaf donald f/u Cscope indicated DILATION AND CURETTAGE OF UTERUS EGD (HISTORICAL) 06/2022 Dr. Underwood- Hiatal hernia w/ duodenitis LAP,CHOLECYSTECTOMY (HISTORICAL) 2017 Schleuter LITHOTRIPSY 2006 MENISCECTOMY Right 1980 PARTIAL HYSTERECTOMY 1982 DUB- ovaries remaining UPPER GASTROINTESTINAL ENDOSCOPY 2012 neg per Gopi Allergies Allergies Allergen Reactions Kiwi Extract Swelling Mouth and lip swelling Other reaction(s): Swelling Lisinopril Angioedema Other Medications Outpatient Encounter Medications as of 12/03/2023 Medication Sig Dispense Refill amLODIPine (Norvasc) 10 MG tablet Take 1 tablet (10 mg) by mouth daily for 180 doses. 90 tablet 1 apixaban (Eliquis) 5 MG tablet Take 1 tablet (5 mg) by mouth 2 times daily. 60 tablet 5 atorvastatin (Lipitor) 10 MG tablet Take 1 tablet (10 mg) by mouth daily. 90 tablet 1 cholestyramine (Questran) 4 g packet MIX AND TAKE 1 PACKET (4 G) BY MOUTH DAILY. 90 packet 1 dicyclomine (Bentyl) 10 MG capsule Take 1 capsule (10 mg) by mouth 2 times daily for 360 doses. 180capsule 1 glimepiride (Amaryl) 4 MG tablet Take 1 tablet (4 mg) by mouth 2 times daily. 180 tablet 1 losartan-hydroCHLOROthiazide (Hyzaar) 100-12.5 MG tablet Take 1 tablet by mouth daily. 90 tablet 1 metFORMIN (Glucophage) 500 MG tablet Take 2 tablets (1,000 mg) by mouth 2 times daily. 360 tablet 1 omeprazole (PriLOSEC) [address] capsule Take 1 capsule (40 mg) by mouth daily for 180 doses. 90 capsule 1 No facility-administered encounter medications on file as of 12/03/2023. Social History Social History Tobacco Use Smoking status: Never Smokeless tobacco: Never Substance Use Topics Alcohol use: No FamilyHistory Family History Problem Relation Name Age of Onset Rheum arthritis Mother mid 50s Prostate cancer Father age 76 Diabetes Sister Maria A insulin, CHF , 2022 age 78 Diabetes Sister Honey oral rx, alive age 74 Accidental Brother Saul MVA 40 Prostate cancer Brother Wyatt Arrhythmia Brother Mustapha PVCs Other ([id number]) Brother Tracey PAD, smoker- ischemic bowel w/ resection Heart failure Brother Estel Diabetes Brother Tracey insulin, age 74 in 04/08 Diabetes Maternal Grandmother Diabetes Maternal Grandfather Diabetes Paternal Grandmother Diabetes Paternal Grandfather Physical Exam Vitals: 12/03/23 1005 BP: 128/68 BP Location: Right arm Patient Position: Sitting BP Cuff Size: Adult Pulse: 63 SpO2: 97% Weight: 180 lb (81.6 kg) Height: 5' 3.5 (1.613 m) Physical Exam Constitutional: General: She is not in acute distress. HENT: Head: Normocephalic and atraumatic. Nose: Nose normal. No rhinorrhea. Eyes: General: No scleral icterus. Extraocular Movements: Extraocular movements intact. Conjunctiva/sclera: Conjunctivae normal. Cardiovascular: Rate and Rhythm: Normal rate and regular rhythm. Heart sounds: Normal heart sounds. No murmur heard. Pulmonary: Effort: Pulmonary effort is normal. No respiratory distress. Breath sounds: Normal breath sounds. No stridor. No wheezing, rhonchi or rales. Chest: Chest wall: No tenderness. Musculoskeletal: General: No swelling. Cervical back: Normal range of motion and neck supple. Skin: General: Skin is warm. Coloration: Skin is not jaundiced or pale. Findings: No rash. Neurological: General: No focal deficit present. Mental Status: She is alert. Mental status is at baseline. Gait: Gait normal. Psychiatric: Mood and Affect: Mood normal. Behavior: Behavior normal. LABS and Studies: Available studies were reviewed, including available PFT Radiology: All pertinent imaging was personally reviewed, including available CT Chest and CXR. Follow up PRN Ayaan Lara MD Physician Pulmonary, Critical Care and Sleep Medicine. 12/03/2023 documented in this [facility]10-17-2024 Instructions* Patient Instructions* Thanh Green MA - 12/03/2023 10:15 AM EDT YOUR APPOINTMENT TODAY WAS WITH THE [facility], COPD CLINIC, PULMONARY AND SLEEP MEDICINE OFFICE. PLEASE CALL OUR OFFICE AT [phone] IF YOU HAVE NOT RECEIVED YOUR TEST RESULTS 7 DAYS AFTER TESTING IS COMPLETED. PLEASE REMEMBER TO REQUEST REFILLS AT YOUR OFFICE VISITS. PHONE/FAX REQUESTS REQUIRE 48-72 HOURS FOR RESPONSE. A FRIENDLY REMINDER COPAYS ARE DUE AT TIME OF SERVICE. THANK YOU. Our Patients Are Important! We want to improve and you can help. After your visit we want you to feel: Listened to, Respected and have your health care explained. You may receive a survey asking you about your visit. Please complete the survey. We will use your feedback to make improvements. COVID-19 VACCINATION INFORMATION: PH. [phone] [email or web address] [facility] Central Scheduling [phone] [facility] Sleep Scheduling [phone] documented in this [facility]08-21-2024 History of Present illness Narrative* Alpesh Wang Shravanvikalayne, DO - 10/07/2023 9:30 AM EDT Images from the original note were not included. [facility] [address] [place] [address] [address] [facility] [address] Dept: [phone] Dept Chief Complaint: Cata Ayers is an 73 y.o. female here for an annual wellness visit. Assessment/Plan : Problem List Items Addressed This Visit Essential hypertension Post-cholecystectomy syndrome GERD with esophagitis Type 2 diabetes mellitus (HCC) Relevant Orders Microalbumin / creatinine, urine ratio CBC auto differential Comprehensive metabolic panel Hemoglobin A1c Pulmonary emboli (HCC) Right leg DVT (HCC) Other Visit Diagnoses Encounter for subsequent annual wellness visit (AWV) in Medicare patient - Primary Hyperlipidemia, unspecified hyperlipidemia type Relevant Orders Lipid panel I have reviewed and reconciled the medication list with the patient today. Current Outpatient Medications Medication Sig Dispense Refill cholestyramine (Questran) 4 g packet MIX AND TAKE 1 PACKET (4 G) BY MOUTH DAILY. 90 packet 1 amLODIPine (Norvasc) 10 MG tablet Take 1 tablet (10 mg) by mouth daily for 180 doses. 90 tablet 1 apixaban (Eliquis) 5 MG tablet Take 1 tablet (5 mg) by mouth 2 times daily. 60 tablet 5 atorvastatin (Lipitor) 10 MG tablet Take 1 tablet (10 mg) by mouth daily. 90 tablet 1 dicyclomine (Bentyl) 10 MG capsule Take 1 capsule (10 mg) by mouth 2 times daily for 360 doses. 180capsule 1 glimepiride (Amaryl) 4 MG tablet Take 1 tablet (4 mg) by mouth 2 times daily. 180 tablet 1 losartan-hydroCHLOROthiazide (Hyzaar) 100-12.5 MG tablet Take 1 tablet by mouth daily. 90 tablet 1 metFORMIN (Glucophage) 500 MG tablet Take 2 tablets (1,000 mg) by mouth 2 times daily. 360 tablet 1 omeprazole (PriLOSEC) [address] capsule Take 1 capsule (40 mg) by mouth daily for 180 doses. 90 capsule 1 No current facility-administered medications for this visit. Also reviewed during this visit: Med Hx Surg Hx Fam Hx The following health maintenance schedule was reviewed with the patient and provided in printed form in the after visit summary: Health Maintenance Topic Date Due Bone Density Scan Never done Hepatitis C Screening Never done Zoster Vaccines (1 of 2) Never done RSV Immunization aged 60 or older (1 - 1-dose 60+ series) Never done DTaP/Tdap/Td Vaccines (1 - Tdap) 05/19/2017 COVID-19 Vaccine (2022- season) 2022 Medicare Advantage Annual Wellness Visit Never done Diabetes: Urine Albumin-Creatinine Ratio for Kidney Health 03/06/2023 Influenza Vaccine (1) 10/18/2023 Diabetes: Retinopathy Screening 03/17/2024 Diabetes: Estimated Glomerular Filtration Rate for Kidney Health 05/01/2024 Depression Screening 10/06/2024 Colorectal Cancer Screening 06/19/2032 Pneumococcal Vaccine: 65+ Years Completed RSV Immunization under 20 Months Aged Out HIB Vaccines Aged Out Hepatitis B Vaccines Aged Out IPV Vaccines Aged Out Hepatitis A Vaccines Aged Out Meningococcal Vaccine Aged Out Rotavirus Vaccines Aged Out HPV Vaccines Aged Out List of current healthcare providers: Patient Care Team: Alpesh Marroquin DO as PCP - General Harry Serrano DO as Consulting Physician (Hematology and Oncology) Orders Placed This Encounter Procedures Microalbumin / creatinine, urine ratio Standing Status: Future Number of Occurrences: 1 Standing Expiration Date: 10/06/2024 CBC auto differential Standing Status: Future Number of Occurrences: 1 Standing Expiration Date: 10/06/2024 Comprehensive metabolic panel Standing Status: Future Number of Occurrences: 1 Standing Expiration Date: 10/06/2024 Hemoglobin A1c Standing Status: Future Number of Occurrences: 1 Standing Expiration Date: 10/06/2024 Lipid panel Standing Status: Future Number of Occurrences: 1 Standing Expiration Date: 10/06/2024 Review of Systems fairly well type II diabetic with history of hypertension, leg DVT with PE this past spring presents for annual wellness exam. Glucose levels are better. Weight is stable. Will be seeing pulmonology in the future for follow-up echocardiogram and decision on the length of anticoagulation treatment. Denies change in vision. No recent earache sore throat or cough. No chest pain or dyspnea. No leg pain. Swelling is chronic. No abdominal pain. Bowels are regular. No melena or blood. History of postcholecystectomy diarrhea and that is intermittent. Pain is stable. No dysuria. No change in arthralgias Physical Exam very pleasant alert and engaging. Follow-up hygiene. Normal eardrums and oropharynx. Nonicteric. No thyroid or neck masses. Heart is regular without ectopy. Lungs are clear no rales wheezes or egophony abdomen slightly obese without pain hepatosplenomegaly or masses. No extremities left slight Edema but nontender. Some varicosities noted. Pulses are excellent. There is no motor or sensory loss of the major Objective : BP 130/62 (BP Location: Left arm, Patient Position: Sitting, BP Cuff Size: Large adult) Pulse 62 Temp 36.1 C (97 F) (Temporal) Ht 5' 3.5 (1.613 m) Wt 179 lb (81.2 kg) SpO2 99% BMI 31.21 kg/m No results found. Subjective : Health Risk Assessment: General: General In general, how would you say your health is?: Good In the past 7 days, have you experienced any of the following: New or Increased Pain, New or Increased Fatigue, Loneliness, Social Isolation, Stress or Anger?: No Do you get the social and emotional suppport you need?: Yes Health Habits/Nutrition: Health Habits / Nutrition On average, how many days per week do you engage in moderate to strenous exercise (like a brisk walk)?: (!) 0 days On average, how man minutes do you engage in exercise at this level?: (!) 0 min Have you lost any weight without trying in the past 3 months? : No Have you seen the dentist within the past year?: Yes Interventions: Dentures Hearing/ Vision: Hearing / Vision Do you or your family notice any trouble with your hearing that hasn't been managed with hearing aids?: No Do you have difficulty driving, watching TV, or doing any of your daily activities because of your eyesight?: No Have you had an eye exam within the past year?: Yes No results found. Safety: Safety Do you have a working smoke detector?: Yes Do you have any tripping hazards - loose or unsecured carpets or rugs?: No Do you have any tripping hazards - clutter in doorways, halls, or stairs?: No Do you have either shower bars, grab bars, non-slip mats or non-slip surfaces in your shower or bathtub? : (!) No Do all your stairways have a railing or banister? : Yes Do you fasten your seatbelt when you are in a car?: Yes Interventions: Patient declines any further evaluation / treatment for this issue ADL: ADL In the past 7 days, did you need help from others to perform any of the following everyday activities: Eating, dressing, grooming,bathing, toileting, or walking / balance? : No In the past 7 days, did you need help from others to take care of any of the following: laundry, housekeeping, banking / finances,shopping, telephone use, food preparation, transportation, or taking medications? : No Living Will: Living Will Do you have a living will?: Yes Cognitive: Cognitive Screening: Mini-Cog Clock Drawing Test (CDT): 2 Words Recalled: 3 Total Score: 5 Total Score Interpretation: Normal Mini-Cog Fall Risk: Fall Risk One or more falls in the last year:: No Advised to use a cane or walker to get around safely:: No Feels unsteady when walking:: No Steadies self on furniture while walking at home:: No Worried about falling:: No Depression Screening: Over the past 2 weeks, how often have you been bothered by any of the following problems? Little interest or pleasure in doing things: Not at all Feeling down, depressed, or hopeless: Not at all Patient Health Questionnaire-2 Score: 0 Interventions: Patient declines any further evaluation / treatment for this issue Tobacco Use: Social History Tobacco Use Smoking Status Never Smokeless Tobacco Never Alcohol Use: Audit Alcohol Screening Q2: How many drinks containing alcohol do you have on a typical day when you are drinking?: Patientdoes not drink 1. Encounter for subsequent annual wellness visit (AWV) in Medicare patient Stable better walking and low-carb meals 2. Post-cholecystectomy syndrome Stable, continue Bentyl and Questran 3. Essential hypertension Stable, continue amlodipine, losartan/HCTZ 4. Type 2 diabetes mellitus without complication, without long-term current use of insulin (CMS/HCC) (HCC) Stable, continue metformin - Microalbumin / creatinine, urine ratio; Future - CBC auto differential; Future - Comprehensive metabolic panel; Future - Hemoglobin A1c; Future - Microalbumin / creatinine, urine ratio - CBC auto differential - Comprehensive metabolic panel - Hemoglobin A1c 5. Pulmonary embolism, other, unspecified chronicity, unspecified whether acute cor pulmonale present ([facility]) Stable, continue Eliquis until seen by pulmonary 6. Acute deep vein thrombosis (DVT) of proximal vein of right lower extremity ([facility]) Stable, continue Eliquis full seen by pulmonary 7. Hyperlipidemia, unspecified hyperlipidemia type Stable, continue Lipitor - Lipid panel; Future - Lipid panel 8. Gastroesophageal reflux disease with esophagitis without hemorrhage Stable, continue Prilosec documented in this [facility]08-21-2024 Instructions* Patient Instructions* Alpesh Marroquin DO - 10/07/2023 9:30 AM EDT Personalized Preventative Plan for Cata Ayers - 10/07/2023 Medicare offers a range of preventative health benefits. Some of the tests and screenings are paid in full while others may be subject to a deductible, co- insurance, and / or copay. Some of these benefits include a comprehensive review of your medical history including lifestyle, illnesses that mayrun in your family, and various assessments and screenings as appropriate. After reviewing your medical record and screening and assessments performed today, your provider may have ordered immunizations, labs, imaging, and / or referrals for you. A list of these orders (if applicable) as well as your Preventative Care list are included within your After Visit Summary for your review. Other Preventative Recommendations: A preventive eye exam by an polisher eyeglass frames is recommended every 1-2 years to screen for glaucoma, cataracts, macular degeneration, and other eye disorders. A preventive dental visit is recommended every 6 months. Try to get at least 150 minutes of exercise per week or 10,000 steps per day on a pedometer. You need 1200-1500mg of calcium and 1697-5713 international units of vitamin D per day. It is possible to meet your calcium requirement with diet alone, but a vitamin D supplement is usually necessary to meet this goal. When exposed to the sun, use a sunscreen that protects against both UVA and UVB radiation with an SPF of 30 or greater. Reapply every 2-3 hours or after sweating, drying off with a towel, or swimming. Always wear a seat belt when traveling in a car. Always wear a helmet when riding a bicycle or a motorcycle documented in this [facility]SSelect [facility], [id number] Telephone encounter Note* Telephone Encounter - Marli Cruz MA - 09/28/2023 8:25 AM EDT Recent Visits Date Type Provider Dept 05/21/23 Office Visit Alpesh Marroquin DO [facility] 05/01/23 Office Visit Alpesh Marroquin DO [facility] 04/07/23 Office Visit Alpesh Marroquin DO [facility] Showing recent visits within past 365 days and meeting all other requirements Future Appointments Date Type Provider Dept 10/07/23 Appointment Alpesh Marroquin DO [facility] Showing future appointments within next 90 days and meeting all other requirements Requested Prescriptions Pending Prescriptions Disp Refills cholestyramine (Questran) 4 g packet [Pharmacy Med Name: CHOLESTYRAMINE PACKET] 90 packet 1 Sig: MIX AND TAKE 1 PACKET (4 G) BY MOUTH DAILY. Provider: Alpesh Marroquin DO Overdue for visit: No If yes - patient scheduled? N/A Most recent labs completed in chart? No Verified pharmacy: yes Verified day(s) supplied: yes Verified refill(s) needed (previous prescription showing no refills in chart): Yes Have you received any controlled medications from any other provider? [id number] Miscellaneous Notes* Telephone Encounter - Marli Cruz MA - 09/28/2023 8:25 AM EDT Recent Visits Date Type Provider Dept 05/21/23 Office Visit Alpesh Marroquin, DO [facility] 05/01/23 Office Visit Alpesh Marroquin, DO [facility] 04/07/23 Office Visit Alpesh Marroquin, DO [facility] Showing recent visits within past 365 days and meeting all other requirements Future Appointments Date Type Provider Dept 10/07/23 Appointment Alpesh MarroquinDO [facility] Showing future appointments within next 90 days and meeting all other requirements Requested Prescriptions Pending Prescriptions Disp Refills cholestyramine (Questran) 4 g packet [Pharmacy Med Name: CHOLESTYRAMINE PACKET] 90 packet 1 Sig: MIX AND TAKE 1 PACKET (4 G) BY MOUTH DAILY. Provider: Alpesh Marroquin DO Overdue for visit: No If yes - patient scheduled? N/A Most recent labs completed in chart? No Verified pharmacy: yes Verified day(s) supplied: yes Verified refill(s) needed (previous prescription showing no refills in chart): Yes Have you received any controlled medications from any other provider? N/A documented in this [facility]08-12-2024 Telephone encounter Note* Telephone Encounter - Marli Cruz MA - 09/28/2023 7:52 AM EDT Recent Visits Date Type Provider Dept 05/21/23 Office Visit Alpesh Marroquin, DO [facility] 05/01/23 Office Visit Alpesh Marroquin, DO [facility] 04/07/23 Office Visit Alpesh Marroquin DO [facility] Showing recent visits within past 365 days and meeting all other requirements Future Appointments Date Type Provider Dept 10/07/23 Appointment Alpesh MarroquinDO [facility] Showing future appointments within next 90 days and meeting all other requirements Requested Prescriptions Pending Prescriptions Disp Refills amLODIPine (Norvasc) 10 MG tablet [Pharmacy Med Name: AMLODIPINE BESYLATE 10 MG TAB] 90 tablet 1 Sig: TAKE 1 TABLET (10 MG) BY MOUTH DAILY FOR 30 DOSES. Provider: Alpesh Marroquin DO Overdue for visit: No If yes - patient scheduled? N/A Most recent labs completed in chart? No Verified pharmacy: yes Verified day(s) supplied: yes Verified refill(s) needed (previous prescription showing no refills in chart): Yes Have you received any controlled medications from any other provider? N[id number] Miscellaneous Notes* Telephone Encounter - Marli Cruz MA - 09/28/2023 7:52 AM EDT Recent Visits Date Type Provider Dept 05/21/23 Office Visit Alpesh Marroquin, DO [facility] 05/01/23 Office Visit Alpesh Marroquin DO [facility] 04/07/23 Office Visit Alpesh Marroquin DO [facility] Showing recent visits within past 365 days and meeting all other requirements Future Appointments Date Type Provider Dept 10/07/23 Appointment Alpesh Marroquin DO [facility] Showing future appointments within next 90 days and meeting all other requirements Requested Prescriptions Pending Prescriptions Disp Refills amLODIPine (Norvasc) 10 MG tablet [Pharmacy Med Name: AMLODIPINE BESYLATE 10 MG TAB] 90 tablet 1 Sig: TAKE 1 TABLET (10 MG) BY MOUTH DAILY FOR 30 DOSES. Provider: DO Christophe Pichardo for visit: No If yes - patient scheduled? N/A Most recent labs completed in chart? No Verified pharmacy: yes Verified day(s) supplied: yes Verified refill(s) needed (previous prescription showing no refills in chart): Yes Have you received any controlled medications from any other provider? N/A documented in this [facility]07-11-2024 Telephone encounter Note* Telephone Encounter - Aline Corbett MA - 08/27/2023 8:09 AM EDT Recent Visits Date Type Provider Dept 05/21/23 Office Visit Alpesh Marroquin DO [facility] 05/01/23 Office Visit Alpesh Marroquin DO [facility] 04/07/23 Office Visit Alpesh Marroquin DO [facility] 09/03/22 Office Visit Alpesh Marroquin, DO [facility] Showing recent visits within past 365 days and meeting all other requirements Future Appointments Date Type Provider Dept 10/07/23 Appointment Alpesh MarroquinDO [facility] Showing future appointments within next 90 days and meeting all other requirements Requested Prescriptions Pending Prescriptions Disp Refills dicyclomine (Bentyl) 10 MG capsule [Pharmacy Med Name: DICYCLOMINE 10 MG CAPSULE] 180 capsule Sig: TAKE 1 CAPSULE (10 MG) BY MOUTH 2 TIMES DAILY FOR 180 DOSES. Provider: Alpesh Marroquin DO Verified pharmacy: yes Verified day(s) supplied: yes Verified refill(s) needed (previous prescription showing no refills in chart): Yes Have you received any controlled medications from any other provider? N/A Overdue for visit: No If yes - patient scheduled? Yes Most recent labs completed in chart? N[id number] Miscellaneous Notes* Telephone Encounter - Aline Corbett MA - 08/27/2023 8:09 AM EDT Recent Visits Date Type Provider Dept 05/21/23 Office Visit Alpesh Marroquin, DO [facility] 05/01/23 Office Visit Alpesh Marroquin DO [facility] 04/07/23 Office Visit Alpesh Marroquin DO [facility] 09/03/22 Office Visit Alpesh MarroquinDO [facility] Showing recent visits within past 365 days and meeting all other requirements Future Appointments Date Type Provider Dept 10/07/23 Appointment Alpesh MarroquinDO [facility] Showing future appointments within next 90 days and meeting all other requirements Requested Prescriptions Pending Prescriptions Disp Refills dicyclomine (Bentyl) 10 MG capsule [Pharmacy Med Name: DICYCLOMINE 10 MG CAPSULE] 180 capsule Sig: TAKE 1 CAPSULE (10 MG) BY MOUTH 2 TIMES DAILY FOR 180 DOSES. Provider: Alpesh Marroquin DO Verified pharmacy: yes Verified day(s) supplied: yes Verified refill(s) needed (previous prescription showing no refills in chart): Yes Have you received any controlled medications from any other provider? N/A Overdue for visit: No If yes - patient scheduled? Yes Most recent labs completed in chart? N/A [id number] Telephone encounter Note* Telephone Encounter - Aline Corbett MA - 07/28/2023 1:02 PM EDT Recent Visits Date Type Provider Dept 05/21/23 Office Visit Alpesh Marroquin, DO [facility] 05/01/23 Office Visit Alpesh Marroquin, DO [facility] 04/07/23 Office Visit Alpesh Marroquin DO [facility] 09/03/22 Office Visit Alpesh Marroquin DO [facility] Showing recent visits within past 365 days and meeting all other requirements Future Appointments Date Type Provider Dept 10/07/23 Appointment Alpesh Marroquin DO [facility] Showing future appointments within next 90 days and meeting all other requirements Requested Prescriptions Pending Prescriptions Disp Refills omeprazole (PriLOSEC) [address] capsule [Pharmacy Med Name: OMEPRAZOLE DR 40 MG CAPSULE] 90 capsule 1 Sig: TAKE 1 CAPSULE (40 MG) BY MOUTH DAILY FOR 30 DOSES. Provider: Alpesh Marroquin DO Verified pharmacy: yes Verified day(s) supplied: yes Verified refill(s) needed (previous prescription showing no refills in chart): Yes Have you received any controlled medications from any other provider? N/A Overdue for visit: No If yes - patient scheduled? Yes Most recent labs completed in chart? N/A [id number] Miscellaneous Notes* Telephone Encounter - Aline Corbett MA - 07/28/2023 1:02 PM EDT Recent Visits Date Type Provider Dept 05/21/23 Office Visit Alpesh Marroquin, DO [facility] 05/01/23 Office Visit Alpesh Marroquin DO [facility] 04/07/23 Office Visit Alpesh Marroquin DO [facility] 09/03/22 Office Visit Alpesh Marroquin DO [facility] Showing recent visits within past 365 days and meeting all other requirements Future Appointments Date Type Provider Dept 10/07/23 Appointment Alpesh Marroquin DO [facility] Showing future appointments within next 90 days and meeting all other requirements Requested Prescriptions Pending Prescriptions Disp Refills omeprazole (PriLOSEC) [address] capsule [Pharmacy Med Name: OMEPRAZOLE DR 40 MG CAPSULE] 90 capsule 1 Sig: TAKE 1 CAPSULE (40 MG) BY MOUTH DAILY FOR 30 DOSES. Provider: Alpesh Marroquin DO Verified pharmacy: yes Verified day(s) supplied: yes Verified refill(s) needed (previous prescription showing no refills in chart): Yes Have you received any controlled medications from any other provider? N/A Overdue for visit: No If yes - patient scheduled? Yes Most recent labs completed in chart? N/A documented in this [facility]04-04-2024 History of Present illness Narrative* Alpesh Marroquin DO - 05/21/2023 10:00 AM EDT Images from the original note were not included. [facility] [address] [place] [address] [address] [facility] [id number] Visit type: Established Patient Reason for Visit: Hospital Follow-up (Blood clots) Assessment / Plan: Cata was seen today for hospital follow-up. Diagnoses and all orders for this visit: Other acute pulmonary embolism without acute cor pulmonale (HCC) (Primary) Comments: Noted, Eliquis for 6 months. Follow-up with pulmonary. Possible sleep study Essential hypertension Comments: Uncontrolled, increase Norvasc to 10 mg daily Type 2 diabetes mellitus without complication, without long-term current use of insulin ([facility]/HCC) (HCC) Comments: Stable, continue metformin and glimepiride Orders: - CBC auto differential; Future - Basic metabolic panel; Future - CBC auto differential - Basic metabolic panel Gastroesophageal reflux disease with esophagitis without hemorrhage Comments: Noted but increased omeprazole 40 mg daily. Anemia, unspecified type Comments: Slight drop noted. Recheck BP and lab in 4 weeks increase omeprazole Other orders - omeprazole (PriLOSEC) [address] capsule; Take 1 capsule (40 mg) by mouth daily for 30 doses. - apixaban (Eliquis) 5 MG tablet; Take 1 tablet (5 mg) by mouth 2 times daily. - amLODIPine (Norvasc) 10 MG tablet; Take 1 tablet (10 mg) by mouth daily for 30 doses. Subjective: Patient ID: Cata Ayers is a 73 y.o. female. HPI fairly well-controlled type II diabetic with history of hypertension hyperlipidemia and chronicacid reflux and anemia presents after being hospitalized for an unprovoked RLE DVT and bilateral pulmonary emboli. Presently on Eliquis 5 mg twice daily. Pulmonary consult reviewed and will be getting repeat echocardiogram in a few months. Review of Systems she feels much better. No dyspnea on exertion. No chest pain or pleurisy. No leg swelling or pain. Blood pressure slightly elevated however. Denies change in glucose levels. No abdominal pain. Acid reflux is stable. No melena or blood. Bowels are regular. No dysuria. I do note a slight drop in her hemoglobin from admission. 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 Allergies Allergen Reactions Kiwi Extract Swelling Mouth and lip swelling Other reaction(s): Swelling Lisinopril Other reaction(s): Other (See Comments) cough Other reaction(s): Other Other Current Outpatient Medications on File Prior to Visit Medication Sig Dispense Refill atorvastatin (Lipitor) 10 MG tablet Take 1 tablet (10 mg) by mouth daily. 90 tablet 1 cholestyramine (Questran) 4 g packet Take 1 packet (4 g) by mouth daily. 90 packet 1 dicyclomine (Bentyl) 10 MG capsule Take 1 capsule (10 mg) by mouth 2 times daily for 180 doses. 90 capsule 1 glimepiride (Amaryl) 4 MG tablet Take 1 tablet (4 mg) by mouth 2 times daily. 180 tablet 1 ibuprofen 200 MG tablet Take 200 mg by mouth. losartan-hydroCHLOROthiazide (Hyzaar) 100-12.5 MG tablet Take 1 tablet by mouth daily. 90 tablet 1 metFORMIN (Glucophage) 500 MG tablet Take 2 tablets (1,000 mg) by mouth 2 times daily. 360 tablet 1 [DISCONTINUED] amLODIPine (Norvasc) 5 MG tablet Take 1 tablet (5 mg) by mouth daily. 90 tablet 1 [DISCONTINUED] Apixaban Starter Pack (Eliquis DVT/PE Starter Pack) 5 MG tablet therapy pack Take bymouth 2 times daily. Take 10mg (2 tablets) twice daily for 7 days then 5 mg (1 tablet) twice daily.74 each 0 [DISCONTINUED] omeprazole (PriLOSEC) [address] capsule Take 1 capsule (20 mg) by mouth daily. 90 capsule 1 No current facility-administered medications on file prior to visit. Patient Active Problem List Diagnosis History of renal stone Renal cyst Essential hypertension Cystoid macular edema Post-cholecystectomy syndrome B12 deficiency SMILEY-inhibitor cough GERD with esophagitis Cholelithiasis Lumbar disc disease Type 2 diabetes mellitus (HCC) AVM (arteriovenous malformation) of colon Adrenal adenoma, left Diabetes due to undrl condition w oth diabetic neuro comp (HCC) Pulmonary emboli (HCC) Right leg DVT (HCC) Social History Tobacco Use Smoking status: Never Smokeless tobacco: Never Substance Use Topics Alcohol use: No Past Surgical History: Procedure Laterality Date CATARACT EXTRACTION Bilateral 2013 [facility] COLONOSCOPY 06/2018 Dr Frost- few polyps- due 2023 COLONOSCOPY 2012 [facility] COLONOSCOPY 06/2022 2 ileal AVMs treated per Dr Underwood- no f/u Cscope indicated DILATION AND CURETTAGE OF UTERUS EGD (HISTORICAL) 06/2022 Dr. Underwood- Hiatal hernia w/ duodenitis LAP,CHOLECYSTECTOMY (HISTORICAL) 2017 [facility] LITHOTRIPSY 2006 MENISCECTOMY Right 1980 PARTIAL HYSTERECTOMY 1982 DUB- ovaries remaining UPPER GASTROINTESTINAL ENDOSCOPY 2012 neg per [facility] Family History Problem Relation Name Age of Onset Rheum arthritis Mother mid 50s Prostate cancer Father age 76 Diabetes Sister Maria A insulin, CHF Diabetes Sister oral rx Other ([id number]) Brother Saul MVA 40 Prostate cancer Brother Wyatt No Known Problems Brother Other ([id number]) Brother Tracey PAD, smoker- ischemic bowel w/ resection Heart failure Brother Estel Diabetes Brother Estecayden insulin, age 74 in 04/08 Diabetes Maternal Grandmother Diabetes Maternal Grandfather Diabetes Paternal Grandmother Diabetes Paternal Grandfather Objective: BP (!) 146/68 Pulse 88 Temp 36.1 C (97 F) (Temporal) Ht 5' 4 (1.626 m) Wt 185 lb (83.9 kg) SpO2 98% BMI 31.76 kg/m Physical Exam very pleasant and cooperative. Blood pressure is too high. Vital signs are stable however. No JVD or adenopathy. Well-hydrated. Heart is regular without gallops or ectopy. No new murmurs. Lungs are clear. Abdomen soft without pain hepatosplenomegaly masses or bruits. No hepatosplenomegaly. Extremities are painless but she does have mild trace edema of the feet. documented in this [facility]03-29-2024 History of Present illness Narrative* Ayaan Lara MD - 05/15/2023 1:30 PM EDT [facility] [place] [facility] [place] [address] [place] [id number] FOLLOW UP VISIT-PULMONARY 05/15/2023 FOLLOW UP FOR: Acute PE ASSESSMENT AND PLAN: 1. Shortness of breath 2. Other acute pulmonary embolism without acute cor pulmonale (HCC) Patient presents for follow-up of recent pulmonary embolism, unprovoked event with associated DVT, clinically low risk without biomarker elevation, no oxygen requirements. Echocardiogram with mild RVdilation with low normal systolic function, although no significant tricuspid regurg, unable to measure RVSP. Discussed that bilateral PE can cause RV strain, it is reassuring that clinically she seems to be improving and not requiring oxygen. We will need to repeat echocardiogram in 6 months to reassess RV function, as she would be at risk for CTEPH although this is a rare condition. -Continue Eliquis 5 mg twice daily at this time, discussed that for single unprovoked event, we will consider 6 months of full anticoagulation followed by reduction to half dose, versus potentially considering stopping for which we may consider hypercoagulability testing prior to discontinuation. Patient will consider these options. -Recommend age-appropriate cancer screening updated - Transthoracic echocardiogram (TTE) complete with contrast, bubble, strain, and 3D PRN; Future History of Present Illness Cata Ayers is a 73 y.o. female with pmh of HTN, DMII, GERD, history of colonic AVM treated with cautery via colonoscopy in 06/2022 Patient was admitted to [facility] with acute pulmonary embolism after initially presenting with shortnessof breath for several weeks. Before that she thinks she had a viral URI and was treated with antibiotics by her PCP. Denies chest pain or palpitations. No syncope. At times lightheaded. CTA of the chest was ordered by her PCP with she was performed on 05/01/2023. PERT team was called. Overall low risk PE not requiring supplemental oxygen. Negative troponin and BNP. Pesi score largelydriven by age. PE overall low risk. On Eliquis. Setting: unprovoked. Symptoms: still with shortness of breath. Cancer screening up to date CTA Chest 05/01/2023: 1. Bilateral pulmonary emboli. The RV/LV ratio is 0.7. This is considered normal*. 2. No consolidation or pleural effusion. 3.. Dilated main pulmonary artery; correlate for possible pulmonary hypertension. Echo 05/01/2023: Left Ventricle: Left ventricle size is normal. Normal wall thickness. Normal left ventricular systolic function. EF by 2D Simpsons Biplane is 61%. Normal wall motion. Normal diastolic function. Right Ventricle: Right ventricle is mildly dilated. Low normal systolic function. Tricuspid Valve: Unable to assess RVSP due to insignificant tricuspid regurgitation. Aorta: Normal sized sinuses of Valsalva. Mildly dilated ascending aorta. Ao ascending diameter is 3.6 cm. US DVT Acute non-occlusive deep vein thrombosis in the right posterior tibial vein. PastMedical History Past Medical History: Diagnosis Date Adrenal adenoma, left 03/[address] AVM (arteriovenous malformation) of colon 06/2022 2 ileal AVMs per Cscope- Dr. Underwood- no f/u Cscope indicated B12 deficiency 02/2021 Breast cancer screening 09/2020 prefers every other year. Chronic diarrhea 2022 n/s colitis per Cscope Cystoid macular edema 2019 [facility], Optho Elbow fracture, left 195 Essential hypertension 2011 GERD with esophagitis 2012 EGD 07/[address] Underwood- HH w/ duodenitis H/O colonoscopy 06/2022 Dr Underwood- ileal AVMs cauterized- no need for rech History of renal stone 2006 Iron deficiency anemia 2022 Dr. Serrano consult- resolved Left rotator cuff tear 2012 Lumbar disc disease 2005 MRI- right sciatica Post-cholecystectomy syndrome 2019 Pulmonary emboli (HCC) 04/2023 Bilat, RLE DVT- post tibial Renal cyst [address] 04/10 Right leg DVT (HCC) 04/2023 post tibial w/ Bilat PE Type 2 diabetes mellitus (HCC) 2007 off rx for a few years, restarted 11/02 -Ailyn/ [facility] Past Surgical History Past Surgical History: Procedure Laterality Date CATARACT EXTRACTION Bilateral 2013 [facility] COLONOSCOPY 06/2018 Dr Frost- few polyps- due 2023 COLONOSCOPY 2012 [facility] COLONOSCOPY 06/2022 2 ileal AVMs treated per Dr Underwood- no f/u Cscope indicated DILATION AND CURETTAGE OF UTERUS EGD (HISTORICAL) 06/2022 Dr. Underwood- Hiatal hernia w/ duodenitis LAP,CHOLECYSTECTOMY (HISTORICAL) 2017 [facility] LITHOTRIPSY 2006 MENISCECTOMY Right 1980 PARTIAL HYSTERECTOMY 1981 DUB- ovaries remaining UPPER GASTROINTESTINAL ENDOSCOPY 2012 neg per [facility] Allergies Allergies Allergen Reactions Kiwi Extract Swelling Mouth and lip swelling Other reaction(s): Swelling Lisinopril Other reaction(s): Other (See Comments) cough Other reaction(s): Other Other Medications Outpatient Encounter Medications as of 05/15/2023 Medication Sig Dispense Refill amLODIPine (Norvasc) 5 MG tablet Take 1 tablet (5 mg) by mouth daily. 90 tablet 1 Apixaban Starter Pack (Eliquis DVT/PE Starter Pack) 5 MG tablet therapy pack Take by mouth 2 times daily. Take 10mg (2 tablets) twice daily for 7 days then 5 mg (1 tablet) twice daily. 74 each 0 atorvastatin (Lipitor) 10 MG tablet Take 1 tablet (10 mg) by mouth daily. 90 tablet 1 cholestyramine (Questran) 4 g packet Take 1 packet (4 g) by mouth daily. 90 packet 1 dicyclomine (Bentyl) 10 MG capsule Take 1 capsule (10 mg) by mouth 2 times daily for 180 doses. 90 capsule 1 glimepiride (Amaryl) 4 MG tablet Take 1 tablet (4 mg) by mouth 2 times daily. 180 tablet 1 ibuprofen 200 MG tablet Take 200 mg by mouth. losartan-hydroCHLOROthiazide (Hyzaar) 100-12.5 MG tablet Take 1 tablet by mouth daily. 90 tablet 1 metFORMIN (Glucophage) 500 MG tablet Take 2 tablets (1,000 mg) by mouth 2 times daily. 360 tablet 1 omeprazole (PriLOSEC) [address] capsule Take 1 capsule (20 mg) by mouth daily. 90 capsule 1 No facility-administered encounter medications on file as of 05/15/2023. Social History Social History Tobacco Use Smoking status: Never Smokeless tobacco: Never Substance Use Topics Alcohol use: No FamilyHistory Family History Problem Relation Name Age of Onset Rheum arthritis Mother mid 50s Prostate cancer Father age 76 Diabetes Sister Maria A insulin, CHF Diabetes Sister oral rx Other ([id number]) Brother Saul MVA 40 Prostate cancer Brother Wyatt No Known Problems Brother Other ([id number]) Brother Tracey PAD, smoker- ischemic bowel w/ resection Heart failure Brother Estecayden Diabetes Brother Tracey insulin, age 74 in 04/08 Diabetes Maternal Grandmother Diabetes Maternal Grandfather Diabetes Paternal Grandmother Diabetes Paternal Grandfather Physical Exam Vitals: 05/15/23 1348 BP: 128/68 BP Location: Right arm Patient Position: Sitting BP Cuff Size: Adult Pulse: 83 Resp: 14 SpO2: 97% Weight: 183 lb (83 kg) Height: 5' 4.02 (1.626 m) Physical Exam Constitutional: General: She is not in acute distress. HENT: Head: Normocephalic and atraumatic. Nose: Nose normal. No rhinorrhea. Mouth/Throat: Pharynx: Oropharynx is clear. No oropharyngeal exudate. Eyes: General: No scleral icterus. Extraocular Movements: Extraocular movements intact. Conjunctiva/sclera: Conjunctivae normal. Cardiovascular: Rate and Rhythm: Normal rate and regular rhythm. Heart sounds: Normal heart sounds. No murmur heard. Pulmonary: Effort: Pulmonary effort is normal. No respiratory distress. Breath sounds: Normal breath sounds. No stridor. No wheezing, rhonchi or rales. Chest: Chest wall: No tenderness. Abdominal: General: There is no distension. Musculoskeletal: General: No swelling. Cervical back: Normal range of motion and neck supple. Right lower leg: No edema. Left lower leg: No edema. Skin: General: Skin is warm. Coloration: Skin is not jaundiced or pale. Findings: No rash. Neurological: General: No focal deficit present. Mental Status: She is alert. Mental status is at baseline. Gait: Gait normal. Psychiatric: Mood and Affect: Mood normal. Behavior: Behavior normal. LABS and Studies: Available studies were reviewed, including available PFT Radiology: All pertinent imaging was personally reviewed, including available CT Chest and CXR. Total time 35 minutes on this day of encounter includes counseling, coordinating plan of care, record and documentation review before and after visit - including documentation and time not explicitlyincluded on EMR time stamp for accounting for open encounter. Follow up in 6 months Ayaan Lara MD Physician Pulmonary, Critical Care and Sleep Medicine. 05/15/2023 documented in this [facility]03-29-2024 Instructions* Patient Instructions* Janet Rose MA - 05/15/2023 1:30 PM EDT YOUR APPOINTMENT TODAY WAS WITH THE [facility], COPD CLINIC, PULMONARY AND SLEEP MEDICINE OFFICE. PLEASE CALL OUR OFFICE AT [phone] IF YOU HAVE NOT RECEIVED YOUR TEST RESULTS 7 DAYS AFTER TESTING IS COMPLETED. PLEASE REMEMBER TO REQUEST REFILLS AT YOUR OFFICE VISITS. PHONE/FAX REQUESTS REQUIRE 48-72 HOURS FOR RESPONSE. A FRIENDLY REMINDER COPAYS ARE DUE AT TIME OF SERVICE. THANK YOU. Our Patients Are Important! We want to improve and you can help. After your visit we want you to feel: Listened to, Respected and have your health care explained. You may receive a survey asking you about your visit. Please complete the survey. We will use your feedback to make improvements. COVID-19 VACCINATION INFORMATION: PH. [phone] [email or web address] [facility] Central Scheduling [phone] [facility] Sleep Scheduling [phone] documented in this [facility]03-16-2024 Hospital course Narrative* Vanessa Byrnes MD - 05/02/2023 2:51 PM EDT Images from the original note were not included. Hospitalist Discharge Summary Cata Ayers : 1950 Admit date: 05/01/2023 Discharge date: 05/02/2023 Admitting Physician: Vanessa Byrnes MD Primary Care Physician: Alpesh Marroquin DO Visit Status: Inpatient Code Status: DNR-CCA BRIEF HOSPITAL COURSE: Cata is a 73 y.o. female with past medical history below who presents with chief complaint listed above. Patient has increased shortness of breath over the past few months, went to her doctor and was told it was likely RSV, when shortness of breath, and cough continued she went to [place] PCP in [place] and was given antibiotics and steroids. Condition continued until she went to PCP today, who ordered a CTA which showed bilateral PO. Patient stated that today she has SOB,cough, abnormal heart rhythm,chest pain when ambulation and light headedness. She was advised to go to ED. In ED, CTA was reviewed showing bilateral pulmonary emboli, with dilated main pulmonary artery, small indeterminate left adrenal nodule. Troponin negative, BNP low, Creatinine 1.05, Creat 55.5, Hgb 11.3. Patient was admitted for echo - results pending, venous duplex -showed DVT in right posterior tibial. Pulmonary embolism team was consulted and Eliquis was initiated. She remained stable on room air throughout visit. Acute, acute on chronic, unstable/uncontrolled chronic problems/discharge diagnoses: Single subsegmental pulmonary embolism PE response team consulted Low risk - Hestia score +1, recommend eliquis treatment Formal echo - results pending Pulmonology consulted - patient to follow up outpatient Acute Deep vein thrombosis of popliteal vein of right lower extremity Shortness of breath 2/2 above Chronic kidney disease stage 3a Normocytic anemia Hypertension Amlodipine 5 mg po daily Losartan- hydrochlorothiazide 100-12.5 mg po daily Hyperlipidemia Atorvastatin 10 mg PO daily GERD PPT Type 2 diabetes Hold metformin Glimepirid substituted per formulary SSI, Hypoglycemia protocol Abdomen cramping Bentyl and cholestyramine Hx of AVM of colon - no recent bleeds, Small left adrenal nodule - repeat imaging in 1 year Past Medical History: Diagnosis Date Adrenal adenoma, left 03/[address] AVM (arteriovenous malformation) of colon 06/2022 2 ileal AVMs per Cscope- Dr. Underwood- no f/u Cscope indicated B12 deficiency 02/2021 Breast cancer screening 09/2020 prefers every other year. Chronic diarrhea 2022 n/s colitis per Cscope Cystoid macular edema 2018 Roderick Frazier Elbow fracture, left 195 Essential hypertension 2011 GERD with esophagitis 2012 EGD 07/[address] Underwood- HH w/ duodenitis H/O colonoscopy 06/2022 Dr Underwood- ileal AVMs cauterized- no need for rech History of renal stone 2005 Iron deficiency anemia 2022 Dr. Serrano consult- resolved Left rotator cuff tear 2011 Lumbar disc disease 2005 MRI- right sciatica Post-cholecystectomy syndrome 2019 Pulmonary emboli (HCC) 04/2023 bilat, ? etiol, sent to ED, w/u pnd Renal cyst [address] 04/10 Type 2 diabetes mellitus (HCC) 2007 off rx for a few years, restarted 11/02 -[facility] Procedures: CTA 04/30: Impression: 1. Bilateral pulmonary emboli. The RV/LV ratio is 0.7. This is considered normal*. 2. No consolidation or pleural effusion. 3.. Dilated main pulmonary artery; correlate for possible pulmonary hypertension. 4. Small indeterminate left adrenal nodule. Follow-up as recommended below. Venous duplex 04/30: Interpretation Summary Acute non-occlusive deep vein thrombosis in the right posterior tibial vein. No evidence of superficial thrombosis in the right lower extremity.. No evidence of deep vein or superficial vein thrombosis in the left lower extremity. Vessels demonstrate normal compressibility, color filling, and phasic and spontaneous flow. If patient is not anticoagulated, may follow up with studies at 3, 10, and 30 days Hospital Course: See discharge diagnoses list above and medication adjustments below in med rec.Thepatient is discharged in improved and stable condition. Consults: IP CONSULT TO PULMONOLOGY Discharge Instructions: Diet: Dietary Orders (From admission, onward) Start Ordered 05/01/231918 Adult diet Regular Diet effective now Question: Diet type Answer: Regular 05/01/231918 Activity: as tolerated Recommended Outpatient Tests: Disposition: Patient discharged in stable condition to Home. Greater than 31 minutes spent discharging the patient and coming up with patient discharge plan. Vitals: BP 132/61 (BP Location: Left arm, Patient Position: Sitting) Pulse 78 Temp 37 C (98.6 F) (Temporal) Resp 16 Ht 5' 4 (1.626 m) Wt 177 lb (80.3 kg) SpO2 94% BMI 30.38 kg/m Pulse Ox: SpO2 Av % Min: 90 % Max: 98 % Supplemental O2: Physical Exam See day of discharge progress note LABS: Recent Labs 05/01/23 0854 05/02/23 0215 NA 140 136 K 4.3 3.9 CL 102 102 CO2 26 27 BUN 13 14 CREATININE 1.05* 1.03 GLUCOSE 184* 190* CALCIUM 9.3 8.4 Recent Labs 05/01/23 0854 05/02/23 0215 WBC 10.4 7.8 RBC 3.99 3.38* HGB 11.3* 9.6* HCT 35.5 29.9* MCV 89.0 88.5 MCH 28.3 28.4 MCHC 31.8 32.1 RDW 13.4 13.5 PLT 384 351 MPV 9.2 8.8* Discharge Medications: Medication List START taking these medications Eliquis DVT/PE Starter Pack 5 MG tablet therapy pack Generic drug: Apixaban Starter Pack Take by mouth 2 times daily. Take 10mg (2 tablets) twice daily for 7 days then 5 mg (1 tablet) twice daily. CONTINUE taking these medications amLODIPine 5 MG tablet Commonly known as: Norvasc Take 1 tablet (5 mg) by mouth daily. atorvastatin 10 MG tablet Commonly known as: Lipitor Take 1 tablet (10 mg) by mouth daily. cholestyramine 4 g packet Commonly known as: Questran Take 1 packet (4 g) by mouth daily. dicyclomine 10 MG capsule Commonly known as: Bentyl Take 1 capsule (10 mg) by mouth 2 times daily for 180 doses. glimepiride 4 MG tablet Commonly known as: Amaryl Take 1 tablet (4 mg) by mouth 2 times daily. ibuprofen 200 MG tablet losartan-hydroCHLOROthiazide 100-12.5 MG tablet Commonly known as: Hyzaar Take 1 tablet by mouth daily. metFORMIN 500 MG tablet Commonly known as: Glucophage Take 2 tablets (1,000 mg) by mouth 2 times daily. omeprazole [address] capsule Commonly known as: PriLOSEC Take 1 capsule (20 mg) by mouth daily. Where to Get Your Medications These medications were sent to [facility]/pharmacy #[id number] - [place], [place] - [address] [address] Eliquis DVT/PE Starter Pack 5 MG tablet therapy pack Recommended Follow-up: Pulmonology clinic Follow up They will contact you and schedule a follow up appointment Alpesh Marroquin DO [address] [facility] [phone] Schedule an appointment as soon as possible for a visit Please go see PCP for transition of care visit within one week. Complexity of Follow up: [] Moderate Complexity: follow up within 7-14 calendar days (49729) [x] Severe Complexity: follow up within 7 calendar days (56414) Follow up Testing, Pending results or Referrals at Transitional Care Visit: [x] Yes pending echo [] no Instructions to MA: Please call patient on day after discharge (must document patient contacted within 2 business days of discharge). Follow up questions for MA: 1. Did you get medications filled and taking them as instructed from discharge? 2. Are you following your discharge instructions from your hospital stay? 3. Please confirm patient is scheduled for a follow up appointment within the above time frame. Signed: Vanessa Byrnes MD [facility] 05/02/2023, 2:55 PM documented in this [facility]03-16-2024 History of Present illness Narrative* Sada Bishop, PT - 05/02/2023 11:18 AM EDT Images from the original note were not included. PHYSICAL THERAPY [facility] Initial Evaluation Name/MRN: Cata Ayers ([id number]) Evaluation Date: 05/02/2023 Date of : 1950 Admission Date: 05/01/2023 2:57 PM Age: 73 y.o. [facility] Discharge Recommendation: Home independently (Outpatient PT) Equipment Needed: No Assessment IMPRESSION: Patient admitted with SOB, PE, DVT popliteal vein of right lower extremity (already anticoagulated). Patient doing well . Denies SOB with activity. Patient is Mod I with bed mobility and transfers sit-stand with Mod I. Patient ambulated with no device 300 t mod I /supervision and stairs3 steps with railing with supervision. Patient had no SOB doing well Full amount of study drug/placebo given and translucent sleeve cover was kept in place during administration. Infusion bag discarded with the translucent sleeve covering in place. PT Eval only Diagnosis: Single subsegmental pulmonary embolism without acute cor pulmonale Prognosis: good Performance Deficits /Impairments: N/A Decision Making: Medium Complexity Subjective Willing to participate Pain: Pt denies any current pain. 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 Underwood- no f/u Cscope indicated B12 deficiency 02/2021 Breast cancer screening 09/2020 prefers every other year. Chronic diarrhea 2022 n/s colitis per Cscope Cystoid macular edema 2018 Schartman, [facility] Elbow fracture, left 195 Essential hypertension 2012 GERD with esophagitis 2012 EGD 07/[address] Underwood- HH w/ duodenitis H/O colonoscopy 06/2022 Dr Underwood- ileal AVMs cauterized- no need for rech History of renal stone 2005 Iron deficiency anemia 2022 Dr. Serrano consult- resolved Left rotator cuff tear 2011 Lumbar disc disease 2005 MRI- right sciatica Post-cholecystectomy syndrome 2019 Pulmonary emboli (HCC) 04/2023 bilat, ? etiol, sent to ED, w/u pnd Renal cyst [address] 04/10 Type 2 diabetes mellitus (HCC) 2007 off rx for a few years, restarted 11/02 -[facility]/ [facility] Past Surgical History: Past Surgical History: Procedure Laterality Date CATARACT EXTRACTION Bilateral 2013 [facility] COLONOSCOPY 06/2018 Dr Frost- few polyps- due 2023 COLONOSCOPY 2012 [facility] COLONOSCOPY 06/2022 2 ileal AVMs treated per Dr Underwood- no f/u Cscope indicated DILATION AND CURETTAGE OF UTERUS EGD (HISTORICAL) 06/2022 Dr. 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 Fall Risk: William Fall Risk Score: 15 (Low Risk) Precautions/Restrictions: N/A Family/Caregiver Present: none Overall Cognitive Status: WNL Overall Orientation Status: Oriented x4 Vision: no visual deficits Hearing: normal Social/Functional History Patient admitted from home. Lives With: Alone Type of Home: single family home Home Layout: Single Level Home and Laundry in Basement Home Access: Stairs to Enter with Rails (# of stairs: 3) Bathroom Shower/Tub: Tub/Shower Combo and Curtain Toilet: Handicap Height and Grab Bars Home Equipment: patient has shower chair, walker available from her who . 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 Prior Level of Function ADL Assistance: Independent Ambulation Assistance: Independent Transfer Assistance: Independent Objective Lower Extremity Assessment AROM: WFL PROM: WFL Strength: WFL Bed Mobility: Supine to sit: Modified Independent Sit to supine: Modified Independent Transfers Sit to stand: Modified Independent Stand to sit: Modified Independent Ambulation Ambulation 1 Assistive device(s) used: none Assist level: Modified Independent, Supervision Distance (ft): 300 Quality of gait: No gait deviations Coordination: WFL Tone: WFL Sensation: WFL Balance: good- Posture: good Sitting - Static: Modified Independent Sitting - Dynamic: Modified Independent Standing - Static: Modified Independent Standing - Dynamic: Modified Independent Stairs Stairs 1 Assistive device(s) used: none Assist level: Modified Independent # of steps: 3 Rails: right Additional factors: non-reciprocal going up, non-reciprocal going down Outcome Measures AM-PAC How much HELP from another person do you currently need Turning from your back to your side while in a flat bed without using bedrails?: None Moving from lying on your back to sitting on the side of a flat bed without using bedrails?: None Moving to and from a bed to a chair (including a wheelchair)?: None Standing up from a chair using your arms (wheelchair or bedside chair)?: None Walking in a hospital room?: A Little Stair climbing assessed?: Yes Climbing 3-5 steps with a railing?+: A Little AM-PAC Inpatient Mobility Raw Score : 22 AM-PAC Inpatient Mobility Raw Score (No Stairs) : 19 Plan No skilled acute PT indicated at this time. Please reconsult should changes occur. Safety/Education Safety Safety Devices in place: call light within reach, gait belt, patient at risk for falls, and nurse notified Restraints: Yes Education Education Given To: patient Education Provided: PT Role, PT Goals, Gait Training, Plan of Care, Transfer Training, and Discharge Recommendations Education Method: Verbal and Demonstration Barriers to Learning: None Education Outcome: Verbalized Understanding and Demonstrated Understanding Goals Patient Stated Goal: home Therapy Time Individual Co-treatment Time In 951 Time Out 1002 Minutes 10 Sada Bishop PT Patient's Physical Therapy Plan of Care supervision is transferred to a [facility] Therapy Services Physical Therapist. Goals and/or treatment plan was established in collaboration with patient/family/other representatives. * Nika Pressley OT - 05/02/2023 9:01 AM EDT Images from the original note were not included. OCCUPATIONAL THERAPY [facility] Initial Evaluation Name/MRN: Cata Ayers ([id number]) Evaluation Date: 05/02/2023 Date of : 1950 Admission Date: 05/01/2023 2:57 PM Age: 73 y.o. [facility] Discharge Recommendation: Home independently (patient would benefit from cardio pulmonary rehab to improve endurance. SOB with distance walking.) Equipment Needed: No Assessment IMPRESSION: patient admitted with SOB, PE, DVT popliteal vein of right lower extremity (already anticoagulated). She is currently able to walk home distances but becomes slightly SOB with it. OT instructed on pursed lip breathing to help patient recover. She recovered quickly. She was able to perform toileting, LB dressing, and grooming at sink during eval without difficulty. No further OT needs.OT recommends cardio pulmonary rehab to improve her endurance and learn energy conservation. Performance Deficits /Impairments: Decreased Endurance Prognosis: Good Decision Making: Low Complexity Subjective Wanting to get back to being fully independent. Pain: Pt denies any current pain. 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 Underwood- no f/u Cscope indicated B12 deficiency 02/2021 Breast cancer screening 09/2020 prefers every other year. Chronic diarrhea 2022 n/s colitis per Cscope Cystoid macular edema 2018 Schartman, Optho Elbow fracture, left 195 Essential hypertension 2012 GERD with esophagitis 2012 EGD 07/[address] Underwood- HH w/ duodenitis H/O colonoscopy 06/2022 Dr Underwood- ileal AVMs cauterized- no need for rech History of renal stone 2005 Iron deficiency anemia 2022 Dr. Serrano consult- resolved Left rotator cuff tear 2011 Lumbar disc disease 2005 MRI- right sciatica Post-cholecystectomy syndrome 2019 Pulmonary emboli (HCC) 04/2023 bilat, ? etiol, sent to ED, w/u pnd Renal cyst [address] 04/10 Type 2 diabetes mellitus (HCC) 2007 off rx for a few years, restarted 11/02 -[facility]/ [facility] Past Surgical History: Past Surgical History: Procedure Laterality Date CATARACT EXTRACTION Bilateral 2013 [facility] COLONOSCOPY 06/2018 Dr Frost- few polyps- due 2023 COLONOSCOPY 2012 [facility] COLONOSCOPY 06/2022 2 ileal AVMs treated per Dr Underwood- no f/u Cscope indicated DILATION AND CURETTAGE OF UTERUS EGD (HISTORICAL) 06/2022 Dr. 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 Fall Risk: William Fall Risk Score: 15 (Low Risk) Precautions/Restrictions: N/A Family/Caregiver Present: none Overall Cognitive Status: WFL Overall Orientation Status: Oriented x4 Social/Functional History Patient admitted from home. Lives With: Alone Type of Home: single family home Home Layout: Single Level Home and Laundry in Basement Home Access: Stairs to Enter with Rails (# of stairs: 3) Bathroom Shower/Tub: Tub/Shower Combo and Curtain Toilet: Handicap Height and Grab Bars Home Equipment: patient has shower chair, walker available from her who . 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 She also drives her grandkids for school daily 15 and 20 years old. She attends [employer]. 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 Objective ADLs Feeding: Independent, anticipated Grooming: Independent, washed hands and face at the sink, declined oral care at this time states she has dentures. LE Dressing: Modified Independent, don/doff socks Toileting: Independent, urinated on toilet. Upper Extremity Assessment AROM: WNL Strength: WFL Vision: wears glasses for driving Reading glasses. Doesn't wear most of the time. Hearing: normal Bed Mobility Supine to sit: Independent Sit to supine: Independent Transfers/Functional Mobility Sit to stand: Independent Stand to sit: Independent Sitting balance: Independent Standing balance: Independent Functional mobility: Independent, Patient was able to walk home distances but became SOB with a fewpursed lip breathing exercises and a short standing break patient recovered and could move on. About 15 second break. Device(s) used: none Coordination: WNL Tone: WNL Sensation: WFL Hand dominance: Right AM-PAC AM-PAC Inpatient Daily Activity Raw Score: 24 ADL Inpatient [facility] G-Code Modifier: CH Plan No skilled acute OT indicated at this time. Please reconsult should changes occur. Safety/Education Safety Safety Devices in place: call light within reach, left in bed, gait belt, nurse notified, and no alarms engaged upon entry Restraints: No Education Education Given To: patient Education Provided: OT Role, Plan of Care, Discharge Recommendations, Benefits of Increasing Activity, and Breathing Techniques Education Method: Verbal Barriers to Learning: None Education Outcome: Verbalized Understanding Goals Patient Stated Goal: to be able to return home and complete occupations independently. Therapy Time Individual Co-treatment Time In 0815 Time Out 0833 Minutes 18 Nika Pressley OT Patient's Occupational Therapy Plan of Care supervision is transferred to a [facility] Therapy Services Occupational Therapist. Goals and/or treatment plan was established in collaboration with patient/family/other representatives. * Vanessa Byrnes MD - 05/02/2023 8:52 AM EDT Images from the original note were not included. Hospitalist Progress Note 05/02/2023 Subjective: Admit Date: 05/01/2023 PCP: Alpesh Marroquin DO Room#: B2-243/[id number] A Brief Hospital course: Cata is a 73 y.o. female with past medical history below who presents with chief complaint listed above. Patient has increased shortness of breath over the past few months, went to her doctor and was told it was likely RSV, when shortness of breath, and cough continued she went to [place] PCP in [place] and was given antibiotics and steroids. Condition continued until she went to PCP today, who ordered a CTA which showed bilateral PO. Patient stated that today she has SOB,cough, abnormal heart rhythm,chest pain when ambulation and light headedness. She was advised to go to ED. In ED, CTA was reviewed showing bilateral pulmonary emboli, with dilated main pulmonary artery, small indeterminate left adrenal nodule. Troponin negative, BNP low, Creatinine 1.05, Creat 55.5, Hgb 11.3. Interval History: Vital signs stable, awaiting echo notes. On room air with no oxygen requirements. Discussion with pulmonology and patient OK to be discharged prior to results. She describes decreased shortness of breath, no cough, fever or chills. No overnight issues. Case and plan discussed with patient and bedside nurse. All questions answered. 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 Underwood- no f/u Cscope indicated B12 deficiency 02/2021 Breast cancer screening 09/2020 prefers every other year. Chronic diarrhea 2022 n/s colitis per Cscope Cystoid macular edema 2018 Roderick Frazier Elbow fracture, left 1953 Essential hypertension 2011 GERD with esophagitis 2012 EGD 07/[address] Underwood- HH w/ duodenitis H/O colonoscopy 06/2022 Dr Underwood- ileal AVMs cauterized- no need for rech History of renal stone 2005 Iron deficiency anemia 2022 Dr. Serrano consult- resolved Left rotator cuff tear 2011 Lumbar disc disease 2005 MRI- right sciatica Post-cholecystectomy syndrome 2019 Pulmonary emboli (HCC) 04/2023 bilat, ? etiol, sent to ED, w/u pnd Renal cyst [address] 04/10 Type 2 diabetes mellitus (HCC) 2007 off rx for a few years, restarted 11/02 -[facility]/ [facility] LABS: CBC: Recent Labs 05/01/23 0854 05/02/23 0215 WBC 10.4 7.8 RBC 3.99 3.38* HGB 11.3* 9.6* HCT 35.5 29.9* MCV 89.0 88.5 RDW 13.4 13.5 PLT 384 351 BMP: Recent Labs 05/01/23 0854 05/02/23 0215 NA 140 136 K 4.3 3.9 CL 102 102 CO2 26 27 BUN 13 14 CREATININE 1.05* 1.03 GLUCOSE 184* 190* CALCIUM 9.3 8.4 ANIONGAP 13 7 LIVER PROFILE: Recent Labs 05/02/23 0215 AST 33 ALT 27 BILITOT 0.3 ALKPHOS 45 PROT 6.5 PT/INR: No results for input(s): PROTIME, INR in the last 72 hours. CARDIAC ENZYMES: Recent Labs 05/01/23 1539 05/01/23 1657 05/01/23 2113 TROPONINI <0.012 <0.012 <0.012 Procalcitonin: No results found for: PROCAL COVID-19 PCR: No results for input(s): COVID19 in the last 72 hours. Objective: Vitals: BP 154/66 (BP Location: Left arm, Patient Position: Sitting) Pulse 83 Temp 36.1 C (97 F) (Temporal) Resp 20 Ht 5' 4.96 (1.65 m) Wt 177 lb 6 oz (80.5 kg) SpO2 93% BMI 29.55 kg/m Pulse Ox: SpO2 Av % Min: 90 % Max: 98 % Supplemental O2: Physical Exam Vitals and nursing note reviewed. HENT: Mouth/Throat: Pharynx: Oropharynx is clear. Eyes: Conjunctiva/sclera: Conjunctivae normal. Cardiovascular: Rate and Rhythm: Normal rate. Heart sounds: No murmur heard. Pulmonary: Effort: Pulmonary effort is normal. No respiratory distress. Breath sounds: No wheezing or rales. Abdominal: General: Bowel sounds are normal. Tenderness: There is no abdominal tenderness. Musculoskeletal: Right lower leg: Edema present. Left lower leg: Edema present. Skin: General: Skin is warm. Capillary Refill: Capillary refill takes less than 2 seconds. Neurological: General: No focal deficit present. Mental Status: She is alert. Medications: Scheduled PRN amLODIPine, 5 mg, Oral, Daily apixaban, 10 mg, Oral, BID atorvastatin, 10 mg, Oral, Daily cholestyramine, 1 packet, Oral, Daily dicyclomine, 10 mg, Oral, BID glipiZIDE, 10 mg, Oral, BID AC losartan, 100 mg, Oral, Daily And hydroCHLOROthiazide, 12.5 mg, Oral, Daily [Held by provider] metFORMIN, 1,000 mg, Oral, BID pantoprazole, 40 mg, Oral, qAM AC PRN medications: acetaminophen OR acetaminophen, ondansetron ODT OR ondansetron, polyethylene glycol (PEG) 3350 Continuous Assessment Data: (CAT1) Reviewed 3 or more notes from different specialty or health system (each=1). (CAT1) Reviewed 1 labs/studies ordered by another provider not previously counted (each=1, panels count as 1). (LOW: 2x CAT1 or independent historian MOD: 3x CAT1 or 1x CAT3 EXTENSIVE: 3x CAT1 and 1x CAT3) Acute, acute on chronic, unstable/uncontrolled chronic problems/diagnoses: Single subsegmental pulmonary embolism PE response team consulted Low risk - Hestia score +1, recommend eliquis treatment Formal echo Pulmonology consult Acute Deep vein thrombosis of popliteal vein of right lower extremity Shortness of breath 2/2 above Chronic kidney disease stage 3a Normocytic anemia Hypertension Amlodipine 5 mg po daily Losartan- hydrochlorothiazide 100-12.5 mg po daily Hyperlipidemia Atorvastatin 10 mg PO daily GERD PPT Type 2 diabetes Hold metformin Glimepirid substituted per formulary SSI, Hypoglycemia protocol Abdomen cramping Bentyl and cholestyramine Hx of AVM of colon - no recent bleeds, Small left adrenal nodule - repeat imaging in 1 year Plan As a result of the above findings & factors, the following mgmt was pursued: - Stable at this time, pulm consult pending, echo pending, labs daily, monitor O2 sat, PT and OT recommendations - am labs, replace lytes prn - PT/OT/CM/SW - delirium precautions: increase activity and limit nighttime disturbances - DVT prophylaxis: encourage ambulation and already anticoagulated Complexity: Acute illness with systemic symptoms (MOD). Risk: Admission to hospital-level care was considered or occurred (HIGH). Advance Directive: DNR-CCA Anticipated Discharge - Date - - Location - home - Pending the following - pending echo results and PT and OT recommendations Total time spent (which include face to face and non face to face encounters) : 35 minutes Toxic drug monitoring/narrow therapeutic index drug monitoring : # Drug name : eliquis, insulin # Route administered : oral, subq # Method of monitoring : monitor for bleed, hypoglycemia protocol Extended Emergency Contact Information Primary Emergency Contact: Adilene Ng Mobile Relation: Daughter aVnessa Byrnes MD Division of Hospitalist Medicine Acute care [facility] documented in this [facility]03-16-2024 Consult note* Kings Gupta MD - 05/02/2023 11:08 AM EDTAssociated Order(s): Inpatient consult to Pulmonology PULMONOLOGY CONSULT NOTE 05/02/2023 11:08 AM Reason for consult: pulmonary embolism Inpatient consult to Pulmonology Consult performed by: Kings Gupta MD Consult ordered by: Matthew Leung, AYSE - BOOTMAKER HAND Subjective: Admit Date: 05/01/2023 PCP: Alpesh Marroquin DO HPI: Cata Ayers is a 73 year old female with HTN, DMII, GERD, history of colonic AVM treated with cautery via colonoscopy in 06/2022. Never smoker. No personal history of cancer. The patient reports doing with shortness of breath for several weeks. Before that she thinks she had a viral URI and was treated with antibiotics by her PCP. Denies chest pain or palpitations. No syncope. At times lightheaded. CTA of the chest was ordered by her PCP with she was performed on 05/01/2023. PERT team was called. Overall low risk PE not requiring supplemental oxygen. Negative troponin and BNP. Pesi score largelydriven by age. On my evaluation this morning, the patient was sitting up in bed in no acute distress. On room air.She said she felt much better. Denied dyspnea at rest, cough, hemoptysis. She does acknowledge being sedentary for the most part at home. No other identifiable thrombotic risk factors. Assessment and Plan: Acute PE, low risk Acute nonocclusive right posterior tibial vein thrombosis History of lower GI bleeding from colonic AVM, treated in 06/2022 without evidence of bleeding sincethen diabetes mellitus type 2 Hypertension Low risk pulmonary embolism. Hemodynamically stable. Not needing supplemental oxygen. PA is mildly dilated on CTA concerning for pulmonary hypertension. TTE ordered and pending. Withoutother risk factors for pulm hypertension, potentially group 4 from [facility]TE[facility] As she is hemodynamically stable and minimally symptomatic at present, no need for further inpatient stay. Already started on apixaban. Continue outpatient. Should be at least 6 months, but likely lifetime if there are no bleeding complications.Platelets normal. Mild normocytic anemia at baseline. I counseled the patient to watch for signs of any GI bleeding. Okay to discharge home from pulmonary perspective. Will arrange follow-up in cardiopulmonary clinic Kings Gupta MD Pulmonary, Critical Care, and Sleep Medicine Portions of the information within this encounter were entered using an electronic dictation system. Best attempts were made to edit/proofread the information prior to note completion. Despite the review of information, some errors may remain. If there are questions related to the information contained within the note please contact the signing physician directly. 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 Underwood- no f/u Cscope indicated B12 deficiency 02/2021 Breast cancer screening 09/2020 prefers every other year. Chronic diarrhea 2022 n/s colitis per Cscope Cystoid macular edema 2018 Schartman, Optho Elbow fracture, left 1953 Essential hypertension 2012 GERD with esophagitis 2012 EGD 07/[address] Underwood- HH w/ duodenitis H/O colonoscopy 06/2022 Dr Underwood- ileal AVMs cauterized- no need for rech History of renal stone 2006 Iron deficiency anemia 2022 Dr. Serrano consult- resolved Left rotator cuff tear 2011 Lumbar disc disease 2005 MRI- right sciatica Post-cholecystectomy syndrome 2019 Pulmonary emboli (HCC) 04/2023 bilat, ? etiol, sent to ED, w/u pnd Renal cyst [address] 04/10 Type 2 diabetes mellitus (HCC) 2007 off rx for a few years, restarted 11/02 -[facility] Past Surgical History: Past Surgical History: Procedure Laterality Date CATARACT EXTRACTION Bilateral 2013 [place] COLONOSCOPY 06/2018 Dr Frost- few polyps- due 2023 COLONOSCOPY 2012 [place] COLONOSCOPY 06/2022 2 ileal AVMs treated per Dr Underwood- no f/u Cscope indicated DILATION AND CURETTAGE OF UTERUS EGD (HISTORICAL) 06/2022 Dr. Underwood- Hiatal hernia w/ duodenitis LAP,CHOLECYSTECTOMY (HISTORICAL) 2017 Schleuter LITHOTRIPSY 2006 MENISCECTOMY Right 1980 PARTIAL HYSTERECTOMY 1982 DUB- ovaries remaining UPPER GASTROINTESTINAL ENDOSCOPY 2012 neg per Gopi Allergies: Allergies Allergen Reactions Kiwi Extract Swelling Mouth and lip swelling Other reaction(s): Swelling Lisinopril Other reaction(s): Other (See Comments) cough Other reaction(s): Other Other Social History: Social History Substance and Sexual Activity Alcohol Use No Social History Substance and Sexual Activity Drug Use No Social History Tobacco Use Smoking Status Never Smokeless Tobacco Never Family History: Family History Problem Relation Name Age of Onset Rheum arthritis Mother mid 50s Prostate cancer Father age 76 Diabetes Sister Maria A insulin, CHF Diabetes Sister oral rx Other ([id number]) Brother Saul MVA 40 Prostate cancer Brother Wyatt No Known Problems Brother Other ([id number]) Brother Tracey PAD, smoker- ischemic bowel w/ resection Heart failure Brother Tracey Diabetes Brother Tracey insulin, age 74 in 04/08 Diabetes Maternal Grandmother Diabetes Maternal Grandfather Diabetes Paternal Grandmother Diabetes Paternal Grandfather Review of Systems Constitutional: Positive for fatigue. Negative for appetite change, chills, fever and unexpected weight change. HENT: Negative for congestion, nosebleeds, postnasal drip, rhinorrhea and trouble swallowing. Eyes: Negative for pain and visual disturbance. Respiratory: Positive for shortness of breath. Negative for cough, chest tightness, wheezing and stridor. Cardiovascular: Negative for chest pain, palpitations and leg swelling. Gastrointestinal: Negative for abdominal pain, diarrhea, nausea and vomiting. Endocrine: Negative for polydipsia, polyphagia and polyuria. Genitourinary: Negative for difficulty urinating, dysuria and hematuria. Musculoskeletal: Negative for arthralgias, joint swelling and myalgias. Skin: Negative for color change, pallor, rash and wound. Neurological: Negative for syncope, weakness, light-headedness and headaches. Hematological: Negative for adenopathy. Does not bruise/bleed easily. Psychiatric/Behavioral: Negative for confusion, dysphoric mood and sleep disturbance. Medications: Scheduled Meds:amLODIPine, 5 mg, Oral, Daily apixaban, 10 mg, Oral, BID atorvastatin, 10 mg, Oral, Daily cholestyramine, 1 packet, Oral, Daily dicyclomine, 10 mg, Oral, BID glipiZIDE, 10 mg, Oral, BID AC losartan, 100 mg, Oral, Daily And hydroCHLOROthiazide, 12.5 mg, Oral, Daily [Held by provider] metFORMIN, 1,000 mg, Oral, BID pantoprazole, 40 mg, Oral, qAM AC Continuous Infusions: Data: [facility] within last 24 hours- BMP: Recent Labs 05/01/23 0854 05/02/23 021 NA 140 136 K 4.3 3.9 CL 102 102 CO2 26 27 BUN 13 14 CREATININE 1.05* 1.03 CALCIUM 9.3 8.4 LFTs: Recent Labs 05/02/23 021 AST 33 ALT 27 PROT 6.5 ALBUMIN 3.5 BILITOT 0.3 ALKPHOS 45 Glucose: Recent Labs 05/01/23 0854 05/02/23 0215 05/02/23 0618 GLUCOSE 184* 190* -- POCGLU -- -- 158* Procal: No results for input(s): PROCAL in the last 72 hours. CBC: Recent Labs 05/01/23 0854 05/02/23 0215 WBC 10.4 7.8 HGB 11.3* 9.6* HCT 35.5 29.9* PLT 384 351 MCV 89.0 88.5 RDW 13.4 13.5 ABGs: No results for input(s): PHART, ZTB1ZMQ, PO2ART, WXN6TWG, SO2ART, L1MFGTBU in thelast 72 hours. Lactic Acid: No results for input(s): LACTATE in the last 72 hours. INR: No results for input(s): INR in the last 72 hours. Cardiac Injury Profile: Recent Labs 05/01/23 1539 05/01/23 1657 05/01/23 2113 TROPONINI <0.012 <0.012 <0.012 Labs in Last 3 months: Lab Results Component Value Date TSH 1.690 02/26/2021 Microbiology- Urine Cx: No results found for: URINECX Blood Cx: No results found for: BLOODCX Sputum Cx: No results found for: RESPCULT Gram Stain: No results found for: LABGRAM PNA PCR: No results found for: HUMANMETAPNE COVID19: No results found for: COVID19 Legionella Ag: No results found for: LEGIONELLAPN Strep Ag: No results for input(s): STREPPNEUMO in the last 72 hours. Imaging- CXR portable:Results for orders placed during the hospital encounter of 02/10/23 XR chest 1 view Narrative [facility] 1950 [id number] Exam Date/Time: 02/10/2023 16:48 Procedure: XR CHEST 1 VIEW Ordering Provider: ALSTON JONATHAN Reason For Exam: DYSPNEA INDICATION: 72-year-old; shortness of breath. VIEWS: Chest portable AP upright-1 image COMPARISON: None. FINDINGS: The trachea is midline. The cardiac silhouette is within normal limits. The costophrenic angles aresharp. There is no confluent consolidation. Cardiac monitoring wires and leads are present. Multilevel endplate degenerative changes are present along the thoracolumbar spine. Impression No radiographic acute cardiopulmonary process. Report Dictated on Electronically Signed By: Nika Riley MD Electronically Signed Date/Time: 02/10/2023 4:54 PM EST CXR (2V): No results found for this or any previous visit. CT Chest: No results found for this or any previous visit. CTA Chest: Results for orders placed during the hospital encounter of 05/01/23 CT chest angiogram w and/or wo IV contrast Narrative Patient Name: CATA AYERS : 1950 [facility] [id number] Exam Date/Time: 05/01/2023 09:44 Procedure: CT CHEST ANGIOGRAM W AND/OR WO IV CONTRAST Ordering Provider: MARROQUIN EUGENE Reason For Exam: Pulmonary embolism (PE) suspected, unknown D-dimer CT ANGIOGRAPHY CHEST: CLINICAL INDICATION: Dyspnea TECHNIQUE: Transaxial sequence from apices through the bases during dynamic intravenous infusion of75 mL of contrast media, injected at a high flow rate. Multiplanar and 3D MIP reconstruction was performed concurrently on an independent viewing workstation. Dose reduction was employed with automated exposure control. COMPARISON: None FINDINGS: Exam quality: Good contrast enhancement of the vasculature. Pulmonary Arteries: Filling defects compatible with pulmonary emboli are present in the lobar pulmonary artery branches to the upper lobes in segmental and subsegmental branches to the bilateral upper and bilateral lower lobes. Dilated main pulmonary artery to 4.3 cm Aorta: Normal caliber. Lungs: No consolidation or atelectasis. No parenchymal or pleural-based mass. Pleural fluid: None. Heart: No abnormality . RV/LV ratio of 0.7 Mediastinum/Jeimy: No mediastinal or hilar mass. Soft tissues chest wall/Neck base: No abnormality identified. Upper abdomen: No abnormality throughout the visualized portions of liver. No abnormality throughout the spleen. 15 mm nonspecific left adrenal nodule. Osseous structures: Degenerative change of the thoracic spine is noted. Impression 1. Bilateral pulmonary emboli. The RV/LV ratio is 0.7. This is considered normal*. 2. No consolidation or pleural effusion. 3.. Dilated main pulmonary artery; correlate for possible pulmonary hypertension. 4. Small indeterminate left adrenal nodule. Follow-up as recommended below. RECOMMENDATION FOR INCIDENTAL ADRENAL NODULE: If no history of malignancy, recommend follow-up adrenal mass protocol CT in one year. If there is a history of malignancy, recommend adrenal mass protocol CT now. * 1cm or less - No follow up * >1cm with diagnostic benign features (fat, <10HU, All ca++, Decrease signal on opposed phase GE MRI or 60% washout on CT) - No follow up * 1-2cm indeterminate, no prior or CA history - Get followup with CT Adrenal protocol in 1 year * 2-4cm indeterminate, no prior or CA history - Get CT Adrenal protocol * 1-4cm indeterminate, Positive CA history - Get CT Adrenal protocol * >4cm - no prior or CA history - consider resection * >4cm - positive CA history - consider Bx, PET/CT Marissa et al. Management of Incidental Adrenal Masses: A White Paper of the ACR Incidental Findings Committee J Am Irais Radiol 2017;14:6348-1991 *Reference: Luna Sarkar., Layne Herrera., Brian, Alcon Jama., Hakeem'Layne, Andrea., & Darin, R. F. (2006). Can CT pulmonary angiography allow assessment of severity and prognosis in patients presenting with pulmonary embolism? What the radiologist needs to know. Radiographics, 26(1), 23-39. Notes: The short axis of the right ventricle is measured at the level of the tricuspid valve from inner wall to inner wall at its widest point. The short axis of the left ventricle is measured at the level of the mitral valve from inner wall to inner wall at its widest point. Note that the short axes of the right ventricle and left ventricle may be located at different axial CT levels. RV/LV diameter ratio <1: normal RV/LV diameter ratio >1: mildly abnormal RV/LV diameter ratio >1.5: severely abnormal CRITICAL TEST RESULT COMMUNICATION: Notification of these findings was made to ALPESH MARROQUIN via [facility] Secure Chat on 05/01/2023 1:19 PM EDT. Report Dictated on Electronically Signed By: Eliot Little MD Electronically Signed Date/Time: 05/01/2023 1:25 PM EDT Other Studies: Reviewed and as per electronic record. CxR/CT images personally reviewed by me when available; salient findings summarized in A/P. Objective: Vitals: BP 154/66 (BP Location: Left arm, Patient Position: Sitting) Pulse 83 Temp 36.1 C (97 F) (Temporal) Resp 20 Ht 5' 4.96 (1.65 m) Wt 177 lb 6 oz (80.5 kg) SpO2 93% BMI 29.55 kg/m Physical Exam Constitutional: General: She is not in acute distress. Appearance: She is well-developed. She is obese. She is not ill-appearing. HENT: Head: Normocephalic and atraumatic. Right Ear: External ear normal. Left Ear: External ear normal. Nose: Nose normal. Mouth/Throat: Mouth: Mucous membranes are moist. Pharynx: Oropharynx is clear. No oropharyngeal exudate. Eyes: General: No scleral icterus. Right eye: No discharge. Left eye: No discharge. Extraocular Movements: Extraocular movements intact. Conjunctiva/sclera: Conjunctivae normal. Pupils: Pupils are equal, round, and reactive to light. Neck: Thyroid: No thyromegaly. Vascular: No JVD. Cardiovascular: Rate and Rhythm: Normal rate and regular rhythm. Pulses: Normal pulses. Heart sounds: Normal heart sounds. No murmur heard. Pulmonary: Effort: Pulmonary effort is normal. No respiratory distress. Breath sounds: Normal breath sounds. No stridor. No wheezing or rhonchi. Abdominal: General: There is no distension. Palpations: Abdomen is soft. There is no mass. Tenderness: There is no abdominal tenderness. There is no guarding. Musculoskeletal: General: No swelling or deformity. Normal range of motion. Cervical back: Normal range of motion and neck supple. Right lower leg: No edema. Left lower leg: No edema. Lymphadenopathy: Cervical: No cervical adenopathy. Skin: General: Skin is warm and dry. Coloration: Skin is not jaundiced. Findings: No rash. Neurological: General: No focal deficit present. Mental Status: She is alert and oriented to person, place, and time. Mental status is at baseline. Motor: No weakness. Gait: Gait normal. Psychiatric: Mood and Affect: Mood normal. Behavior: Behavior normal. Thought Content: Thought content normal. Judgment: Judgment normal. 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 Never smoker. No personal history of cancer. The patient reports doing with shortness of breath for several weeks. Before that she thinks she had a viral URI and was treated with antibiotics by her PCP. Denies chest pain or palpitations. No syncope. At times lightheaded. CTA of the chest was ordered by her PCP with she was performed on 05/01/2023. PERT team was called. Overall low risk PE not requiring supplemental oxygen. Negative troponin and BNP. Pesi score largelydriven by age. On my evaluation this morning, the patient was sitting up in bed in no acute distress. On room air.She said she felt much better. Denied dyspnea at rest, cough, hemoptysis. She does acknowledge being sedentary for the most part at home. No other identifiable thrombotic risk factors. Assessment and Plan: Acute PE, low risk Acute nonocclusive right posterior tibial vein thrombosis History of lower GI bleeding from colonic AVM, treated in 06/2022 without evidence of bleeding sincethen diabetes mellitus type 2 Hypertension Low risk pulmonary embolism. Hemodynamically stable. Not needing supplemental oxygen. PA is mildly dilated on CTA concerning for pulmonary hypertension. TTE ordered and pending. Withoutother risk factors for pulm hypertension, potentially group 4 from [facility] As she is hemodynamically stable and minimally symptomatic at present, no need for further inpatient stay. Already started on apixaban. Continue outpatient. Should be at least 6 months, but likely lifetime if there are no bleeding complications.Platelets normal. Mild normocytic anemia at baseline. I counseled the patient to watch for signs of any GI bleeding. Okay to discharge home from pulmonary perspective. Will arrange follow-up in cardiopulmonary clinic Kings Gupta MD Pulmonary, Critical Care, and Sleep Medicine Portions of the information within this encounter were entered using an electronic dictation system. Best attempts were made to edit/proofread the information prior to note completion. Despite the review of information, some errors may remain. If there are questions related to the information contained within the note please contact the signing physician directly. 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 Underwood- odilon f/u Cscope indicated B12 deficiency 02/2021 Breast cancer screening 09/2020 prefers every other year. Chronic diarrhea 2022 n/s colitis per Cscope Cystoid macular edema 2018 Schartman, Optho Elbow fracture, left 1953 Essential hypertension 2012 GERD with esophagitis 2012 EGD 07/[address] Underwood- HH w/ duodenitis H/O colonoscopy 06/2022 Dr Underwood- ileal AVMs cauterized- no need for rech History of renal stone 2006 Iron deficiency anemia 2022 Dr. Serrano consult- resolved Left rotator cuff tear 2012 Lumbar disc disease 2006 MRI- right sciatica Post-cholecystectomy syndrome 2019 Pulmonary emboli (HCC) 04/2023 bilat, ? etiol, sent to ED, w/u pnd Renal cyst [address] 04/10 Type 2 diabetes mellitus (HCC) 2007 off rx for a few years, restarted 11/02 -[facility] Past Surgical History: Past Surgical History: Procedure Laterality Date CATARACT EXTRACTION Bilateral 2013 [facility] COLONOSCOPY 06/2018 Dr Frost- few polyps- due 2023 COLONOSCOPY 2012 [facility] COLONOSCOPY 06/2022 2 ileal AVMs treated per Dr Asaf donald f/u Cscope indicated DILATION AND CURETTAGE OF UTERUS EGD (HISTORICAL) 06/2022 Dr. Underwood- Hiatal hernia w/ duodenitis LAP,CHOLECYSTECTOMY (HISTORICAL) 2017 Schleuter LITHOTRIPSY 2006 MENISCECTOMY Right 1980 PARTIAL HYSTERECTOMY 1981 DUB- ovaries remaining UPPER GASTROINTESTINAL ENDOSCOPY 2012 neg per [facility]opi Allergies: Allergies Allergen Reactions Kiwi Extract Swelling Mouth and lip swelling Other reaction(s): Swelling Lisinopril Other reaction(s): Other (See Comments) cough Other reaction(s): Other Other Social History: Social History Substance and Sexual Activity Alcohol Use No Social History Substance and Sexual Activity Drug Use No Social History Tobacco Use Smoking Status Never Smokeless Tobacco Never Family History: Family History Problem Relation Name Age of Onset Rheum arthritis Mother mid 50s Prostate cancer Father age 74 Diabetes Sister Maria A insulin, CHF Diabetes Sister oral rx Other ([id number]) Brother Saul MVA 40 Prostate cancer Brother Wyatt No Known Problems Brother Other ([id number]) Brother Tracey PAD, smoker- ischemic bowel w/ resection Heart failure Brother Estecayden Diabetes Brother Tracey insulin, age 74 in 04/08 Diabetes Maternal Grandmother Diabetes Maternal Grandfather Diabetes Paternal Grandmother Diabetes Paternal Grandfather Review of Systems Constitutional: Positive for fatigue. Negative for appetite change, chills, fever and unexpected weight change. HENT: Negative for congestion, nosebleeds, postnasal drip, rhinorrhea and trouble swallowing. Eyes: Negative for pain and visual disturbance. Respiratory: Positive for shortness of breath. Negative for cough, chest tightness, wheezing and stridor. Cardiovascular: Negative for chest pain, palpitations and leg swelling. Gastrointestinal: Negative for abdominal pain, diarrhea, nausea and vomiting. Endocrine: Negative for polydipsia, polyphagia and polyuria. Genitourinary: Negative for difficulty urinating, dysuria and hematuria. Musculoskeletal: Negative for arthralgias, joint swelling and myalgias. Skin: Negative for color change, pallor, rash and wound. Neurological: Negative for syncope, weakness, light-headedness and headaches. Hematological: Negative for adenopathy. Does not bruise/bleed easily. Psychiatric/Behavioral: Negative for confusion, dysphoric mood and sleep disturbance. Medications: Scheduled Meds:amLODIPine, 5 mg, Oral, Daily apixaban, 10 mg, Oral, BID atorvastatin, 10 mg, Oral, Daily cholestyramine, 1 packet, Oral, Daily dicyclomine, 10 mg, Oral, BID glipiZIDE, 10 mg, Oral, BID AC losartan, 100 mg, Oral, Daily And hydroCHLOROthiazide, 12.5 mg, Oral, Daily [Held by provider] metFORMIN, 1,000 mg, Oral, BID pantoprazole, 40 mg, Oral, qAM AC Continuous Infusions: Data: [facility] within last 24 hours- BMP: Recent Labs 05/01/23 0854 05/02/23 021 NA 140 136 K 4.3 3.9 CL 102 102 CO2 26 27 BUN 13 14 CREATININE 1.05* 1.03 CALCIUM 9.3 8.4 LFTs: Recent Labs 05/02/23214 AST 33 ALT 27 PROT 6.5 ALBUMIN 3.5 BILITOT 0.3 ALKPHOS 45 Glucose: Recent Labs 05/01/23 0854 05/02/23 0215 05/02/23 0618 GLUCOSE 184* 190* -- POCGLU -- -- 158* Procal: No results for input(s): PROCAL in the last 72 hours. CBC: Recent Labs 05/01/23 0854 05/02/23214 WBC 10.4 7.8 HGB 11.3* 9.6* HCT 35.5 29.9* PLT 384 351 MCV 89.0 88.5 RDW 13.4 13.5 ABGs: No results for input(s): PHART, GDA8DYE, PO2ART, HLI3TTE, SO2ART, D4RNRKGE in thelast 72 hours. Lactic Acid: No results for input(s): LACTATE in the last 72 hours. INR: No results for input(s): INR in the last 72 hours. Cardiac Injury Profile: Recent Labs 05/01/23 1539 05/01/23 1657 05/01/23 2113 TROPONINI <0.012 <0.012 <0.012 Labs in Last 3 months: Lab Results Component Value Date TSH 1.690 02/26/2021 Microbiology- Urine Cx: No results found for: URINECX Blood Cx: No results found for: BLOODCX Sputum Cx: No results found for: RESPCULT Gram Stain: No results found for: LABGRAM PNA PCR: No results found for: HUMANMETAPNE COVID19: No results found for: COVID19 Legionella Ag: No results found for: LEGIONELLAPN Strep Ag: No results for input(s): STREPPNEUMO in the last 72 hours. Imaging- CXR portable:Results for orders placed during the hospital encounter of 02/10/23 XR chest 1 view Narrative Patient Name: CATA AYERS : 1950 Exam Date/Time: 02/10/2023 16:48 Procedure: XR CHEST 1 VIEW Ordering Provider: ALSTON JONATHAN Reason For Exam: DYSPNEA INDICATION: 72-year-old; shortness of breath. VIEWS: Chest portable AP upright-1 image COMPARISON: None. FINDINGS: The trachea is midline. The cardiac silhouette is within normal limits. The costophrenic angles aresharp. There is no confluent consolidation. Cardiac monitoring wires and leads are present. Multilevel endplate degenerative changes are present along the thoracolumbar spine. Impression No radiographic acute cardiopulmonary process. Report Dictated on Electronically Signed By: Nika Riley MD Electronically Signed Date/Time: 02/10/2023 4:54 PM EST CXR (2V): No results found for this or any previous visit. CT Chest: No results found for this or any previous visit. CTA Chest: Results for orders placed during the hospital encounter of 05/01/23 CT chest angiogram w and/or wo IV contrast Narrative Patient Name: CATA AYERS : 1950 Exam Date/Time: 05/01/2023 09:44 Procedure: CT CHEST ANGIOGRAM W AND/OR WO IV CONTRAST Ordering Provider: MARROQUIN EUGENE Reason For Exam: Pulmonary embolism (PE) suspected, unknown D-dimer CT ANGIOGRAPHY CHEST: CLINICAL INDICATION: Dyspnea TECHNIQUE: Transaxial sequence from apices through the bases during dynamic intravenous infusion of75 mL of contrast media, injected at a high flow rate. Multiplanar and 3D MIP reconstruction was performed concurrently on an independent viewing workstation. Dose reduction was employed with automated exposure control. COMPARISON: None FINDINGS: Exam quality: Good contrast enhancement of the vasculature. Pulmonary Arteries: Filling defects compatible with pulmonary emboli are present in the lobar pulmonary artery branches to the upper lobes in segmental and subsegmental branches to the bilateral upper and bilateral lower lobes. Dilated main pulmonary artery to 4.3 cm Aorta: Normal caliber. Lungs: No consolidation or atelectasis. No parenchymal or pleural-based mass. Pleural fluid: None. Heart: No abnormality . RV/LV ratio of 0.7 Mediastinum/Jeimy: No mediastinal or hilar mass. Soft tissues chest wall/Neck base: No abnormality identified. Upper abdomen: No abnormality throughout the visualized portions of liver. No abnormality throughout the spleen. 15 mm nonspecific left adrenal nodule. Osseous structures: Degenerative change of the thoracic spine is noted. Impression 1. Bilateral pulmonary emboli. The RV/LV ratio is 0.7. This is considered normal*. 2. No consolidation or pleural effusion. 3.. Dilated main pulmonary artery; correlate for possible pulmonary hypertension. 4. Small indeterminate left adrenal nodule. Follow-up as recommended below. RECOMMENDATION FOR INCIDENTAL ADRENAL NODULE: If no history of malignancy, recommend follow-up adrenal mass protocol CT in one year. If there is a history of malignancy, recommend adrenal mass protocol CT now. * 1cm or less - No follow up * >1cm with diagnostic benign features (fat, <10HU, All ca++, Decrease signal on opposed phase GE MRI or 60% washout on CT) - No follow up * 1-2cm indeterminate, no prior or CA history - Get followup with CT Adrenal protocol in 1 year * 2-4cm indeterminate, no prior or CA history - Get CT Adrenal protocol * 1-4cm indeterminate, Positive CA history - Get CT Adrenal protocol * >4cm - no prior or CA history - consider resection * >4cm - positive CA history - consider Bx, PET/CT Marissa et al. Management of Incidental Adrenal Masses: A White Paper of the ACR Incidental Findings Committee J Am Irais Radiol 2017;14:9927-2797 *Reference: Luna Sarkar., Layne Herrera., Brian, P. Wiley., Carmina, Andrea., & Darin, R. Kathleen. (2006). Can CT pulmonary angiography allow assessment of severity and prognosis in patients presenting with pulmonary embolism? What the radiologist needs to know. Radiographics, 26(1), 23-39. Notes: The short axis of the right ventricle is measured at the level of the tricuspid valve from inner wall to inner wall at its widest point. The short axis of the left ventricle is measured at the level of the mitral valve from inner wall to inner wall at its widest point. Note that the short axes of the right ventricle and left ventricle may be located at different axial CT levels. RV/LV diameter ratio <1: normal RV/LV diameter ratio >1: mildly abnormal RV/LV diameter ratio >1.5: severely abnormal CRITICAL TEST RESULT COMMUNICATION: Notification of these findings was made to ALPESH MARROQUIN via [facility] Secure Chat on 05/01/2023 1:19 PM EDT. Report Dictated on Electronically Signed By: Eliot Little MD Electronically Signed Date/Time: 05/01/2023 1:25 PM EDT Other Studies: Reviewed and as per electronic record. CxR/CT images personally reviewed by me when available; salient findings summarized in A/P. Objective: Vitals: BP 154/66 (BP Location: Left arm, Patient Position: Sitting) Pulse 83 Temp 36.1 C (97 F) (Temporal) Resp 20 Ht 5' 4.96 (1.65 m) Wt 177 lb 6 oz (80.5 kg) SpO2 93% BMI 29.55 kg/m Physical Exam Constitutional: General: She is not in acute distress. Appearance: She is well-developed. She is obese. She is not ill-appearing. HENT: Head: Normocephalic and atraumatic. Right Ear: External ear normal. Left Ear: External ear normal. Nose: Nose normal. Mouth/Throat: Mouth: Mucous membranes are moist. Pharynx: Oropharynx is clear. No oropharyngeal exudate. Eyes: General: No scleral icterus. Right eye: No discharge. Left eye: No discharge. Extraocular Movements: Extraocular movements intact. Conjunctiva/sclera: Conjunctivae normal. Pupils: Pupils are equal, round, and reactive to light. Neck: Thyroid: No thyromegaly. Vascular: No JVD. Cardiovascular: Rate and Rhythm: Normal rate and regular rhythm. Pulses: Normal pulses. Heart sounds: Normal heart sounds. No murmur heard. Pulmonary: Effort: Pulmonary effort is normal. No respiratory distress. Breath sounds: Normal breath sounds. No stridor. No wheezing or rhonchi. Abdominal: General: There is no distension. Palpations: Abdomen is soft. There is no mass. Tenderness: There is no abdominal tenderness. There is no guarding. Musculoskeletal: General: No swelling or deformity. Normal range of motion. Cervical back: Normal range of motion and neck supple. Right lower leg: No edema. Left lower leg: No edema. Lymphadenopathy: Cervical: No cervical adenopathy. Skin: General: Skin is warm and dry. Coloration: Skin is not jaundiced. Findings: No rash. Neurological: General: No focal deficit present. Mental Status: She is alert and oriented to person, place, and time. Mental status is at baseline. Motor: No weakness. Gait: Gait normal. Psychiatric: Mood and Affect: Mood normal. Behavior: Behavior normal. Thought Content: Thought content normal. Judgment: Judgment normal. documented in this [facility]03-15-2024 Note* ACP (Advance Care Planning) - Vanessa Byrnes MD - 05/01/2023 7:58 PM EDT Images from the original note were not included. ADVANCED CARE PLANNING Cata Ayers : 1950 Primary Care Physician: Alpesh Marroquin DO The patient and/or family/surrogate voluntarily agreed to participate in ACP services. Patient s cognitive capacity: intact Code Status: [_] [FULL CODE - Continue all advanced life support: CPR,intubation,invasive procedures] [X] [DNR-CCA - DO NOT do CPR, intubation] [_] [DNR-RESEARCH TECH - Comfort care only] [] DNR form [was/was not] signed Summary of discussion: The patient HCPOA is the following: Adilene Ng. The patient DPOA is the following: Adilene Fontenotrell Discussed with patient and daughter at bedside, no offical paperwork available or signed - but she would like Adilene I answered all the patient/family questions that I could within the range and scope of the current medical situation. We discussed the medical conditions, risks, benefits, outcomes, and goals of careat this time for the patient's medical issues at hand in the face of the patient's chronic issues and current presentation. Total time spent: 10 minutes were spent discussing the patient's resuscitation status, advance careplanning, and end of life care, with patient and/or family/surrogate. Vanessa Byrnes MD [employer] [facility] 05/01/2023, 7:58 PM [id number]* ACP (Advance Care Planning) - Vanessa Byrnes MD - 05/01/2023 7:58 PM EDT Images from the original note were not included. ADVANCED CARE PLANNING Cata Ayers : 1950 Primary Care Physician: Alpesh Marroquin DO The patient and/or family/surrogate voluntarily agreed to participate in ACP services. Patient s cognitive capacity: intact Code Status: [_] [FULL CODE - Continue all advanced life support: CPR,intubation,invasive procedures] [X] [DNR-CCA - DO NOT do CPR, intubation] [_] [DNR-RESEARCH TECH - Comfort care only] [] DNR form [was/was not] signed Summary of discussion: The patient HCPOA is the following: Adilene Ng. The patient DPOA is the following: Adilene Ng Discussed with patient and daughter at bedside, no offical paperwork available or signed - but she would like Adilene I answered all the patient/family questions that I could within the range and scope of the current medical situation. We discussed the medical conditions, risks, benefits, outcomes, and goals of careat this time for the patient's medical issues at hand in the face of the patient's chronic issues and current presentation. Total time spent: 10 minutes were spent discussing the patient's resuscitation status, advance careplanning, and end of life care, with patient and/or family/surrogate. Vanessa Byrnes MD [facility] care [facility] 05/01/2023, 7:58 PM [facility] [id number] Miscellaneous Notes* ACP (Advance Care Planning) - Vanessa Byrnes MD - 05/01/2023 7:58 PM EDT Images from the original note were not included. ADVANCED CARE PLANNING Cata Ayers : 1950 Primary Care Physician: Alpesh Marroquin DO The patient and/or family/surrogate voluntarily agreed to participate in ACP services. Patient s cognitive capacity: intact Code Status: [_] [FULL CODE - Continue all advanced life support: CPR,intubation,invasive procedures] [X] [DNR-CCA - DO NOT do CPR, intubation] [_] [DNR-RESEARCH TECH - Comfort care only] [] DNR form [was/was not] signed Summary of discussion: The patient HCPOA is the following: Adilene Ng. The patient DPOA is the following: Adilene Ng Discussed with patient and daughter at bedside, no offical paperwork available or signed - but she would like Adilene I answered all the patient/family questions that I could within the range and scope of the current medical situation. We discussed the medical conditions, risks, benefits, outcomes, and goals of careat this time for the patient's medical issues at hand in the face of the patient's chronic issues and current presentation. Total time spent: 10 minutes were spent discussing the patient's resuscitation status, advance careplanning, and end of life care, with patient and/or family/surrogate. Vanessa Byrnes MD Acute care [facility] 05/01/2023, 7:58 PM * Care Coordination - Macrina Victor, TOP STOP ATTACHER - [employer] - 05/01/2023 3:42 PM EDT Images from the original note were not included. PE Response Team Triage Brief HPI: 73 YO male w/PMH Colonic AVM, T2DM, HTN, GERD, and iron deficiency anemia. Patient arrived to [facility] ED with C/O of blood clots in her lungs. Patient w/cough and SOB on exertion for several months presented to ED and left w/o and lab or radiological work-up. Patient saw PCP in 03/2023, was given steroids and antibiotics for URI that never full resolved. She presented today to PCP for concerns of SOB,cough, palpitations, right-sided dyspneic chest pain, and a feeling of lightheadedness when she bends over. CTA showed Bilateral PE. Filling defects compatible with pulmonary emboli are present in the lobar pulmonary artery branches to the upper lobes in segmental and subsegmental branches to the bilateral upper and bilateral lower lobes. Dilated main pulmonary artery to 4.3 cm The RV/LV ratio is0.7, No consolidation or pleural effusion. Dilated main PA correlate for possible pulmonary hypertension.She was sent to the emergency department for further evaluation. Patient with no known prior history of clots, is not on blood thinners and no other high risk criteria met. Hemodynamic instability: No RV Strain: No Troponin >0.120: No No results found for: TROPONINI High-risk Criteria No [] Saddle embolism or occlusive main PA emboli [] High flow oxygen need or respiratory distress [] Syncope [] Significant related comorbidities -- I.e., cancer, clotting disorder, hx DVT/PE, VTE already on AC Contraindication to Anticoagulation Contraindication to Thrombolytics No apparent contraindications noted No apparent contraindications noted [] Active, clinically significant bleeding [] Severe uncontrolled hypertension [] Ischemic stroke within 3 months [] Recent intracranial hemorrhage [] Recent LP/epidural [] Structural cerebrovascular lesion or intracranial neoplasm [] Major trauma [] Invasive procedure or OB delivery [] Active bleeding (excluding menses) [] Severe uncontrolled hypertension [] Ischemic stroke within 3 months [] Recent intracranial hemorrhage [] Significant head injury or facial trauma within the last 3 months [] Recent intracranial or spinal surgery [] Structural cerebrovascular lesion or intracranial neoplasm [] Possible aortic dissection Assessment/Recommendation: Low Risk PE Anticoagulation Recommendations: Eliquis 10mg BID x 7 days followed by 5mg BID Care Plan Recommendations: LOW RISK PE: Hestia score 1+ Disposition Recommendations: -Admit to inpatient/observation -Pulmonology consult PE protocol orders placed by PERT [x] Serial troponin q4h x 3 [x] STAT BNP and again in AM [x] Formal 2D Echo [x] Lower extremity duplex -- symptomatic DVT only [] Interventional Cardiology consult [x] Pulmonary consult [] PE Clinic Referral -- follow-up appointment on [facility] This consultation was completed remotely. The above information is based on the HPI and informationprovided by the primary service. Recommendations for PE treatment reflect this information and final treatment decisions and disposition are deferred to the clinical judgment of the primary service. * ED Attestation Note - Oliver Saenz DO - 05/01/2023 2:49 PM EDT Emergency Department Encounter [facility] ED Patient: Cata Ayers : 1950 Date of Evaluation: 05/01/2023 ED Supervising Physician: Oliver Saenz DO I personally evaluated Cata Ayers and made/approved the management plan and take responsibility forthe patient management. This will serve as my Supervisory note and shared attestation. I did perform a substantive portion of the visit including all aspects of the Medical Decision Making. I wore appropriate PPE for the entirety of this encounter. In brief, Cata Ayers is a 73 y.o. that presents to the emergency department for evaluation of knownbilateral pulm emboli. Having increased shortness of breath. She reports that she did recently travel to [place] however symptoms were ongoing at that time prior to the trip. She currently feels well and is asymptomatic. She is not on any blood thinners. Focused exam: Alert, nontoxic, in no distress heart regular rate and rhythm. No calf tenderness. Lungs clear to auscultation bilaterally. Abdomen soft nontender. Brief ED course/MDM: Patient presented to emergency department for evaluation of bilateral pulmonary emboli. This was found on outpatient imaging. Ultrasound bilateral lower extremities reveals DVT in the right posterior tibial vein. In discussion with PE response team they are recommending Eliquisand admission for observation. She remained hemodynamically stable here. Her troponins were both negative. All diagnostic, treatment, and disposition decisions were made by myself in conjunction with the Resident. I also supervised elizalde portions of any procedures performed by the Resident. For all further details of the patient's emergency department visit, please see their documentation. (Comment: Please note this report has been produced using speech recognition software and may contain errors related to that system including errors in grammar, punctuation, and spelling, as well as words and phrases that may be inappropriate. If there are any questions or concerns please feel freeto contact the dictating provider for clarification.) Oliver Saenz DO [employer] Oliver Saenz DO 05/01/23 2525 documented in this [facility]03-15-2024 History and physical note* Vanessa Byrnes MD - 05/01/2023 6:04 PM EDT Images from the original note were not included. Attending History and Physical Admit Date: 05/01/2023 PCP: Alpesh Marroquin DO CHIEF COMPLAINT: SOB Reason for Admission: PE and DVT History Obtained From: Patient HISTORY OF PRESENT ILLNESS: Cata is a 73 y.o. female with past medical history below who presents with chief complaint listed above. Patient has increased shortness of breath over the past few months, went to her doctor and was told it was likely RSV, when shortness of breath, and cough continued she went to her PCP in [place] and was given antibiotics and steroids. Condition continued until she went to PCP today, who ordered a CTA which showed bilateral PO. Patient stated that today she has SOB,cough, abnormal heart rhythm,chest pain when ambulation and light headedness. She was advised to go to ED. In ED, CTA was reviewed showing bilateral pulmonary emboli, with dilated main pulmonary artery, small indeterminate left adrenal nodule. Troponin negative, BNP low, Creatinine 1.05, Creat 55.5, Hgb 11.3 PE team Will admit for further evaluation and management. 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 Underwood- no f/u Cscope indicated B12 deficiency 02/2021 Breast cancer screening 09/2020 prefers every other year. Chronic diarrhea 2022 n/s colitis per Cscope Cystoid macular edema 2019 Schartman, Optho Elbow fracture, left 1954 Essential hypertension 2012 GERD with esophagitis 2012 EGD 07/[address] Underwood- HH w/ duodenitis H/O colonoscopy 06/2022 Dr Underwood- ileal AVMs cauterized- no need for rech History of renal stone 2006 Iron deficiency anemia 2022 Dr. Serrano consult- resolved Left rotator cuff tear 2012 Lumbar disc disease 2005 MRI- right sciatica Post-cholecystectomy syndrome 2019 Pulmonary emboli (HCC) 04/2023 bilat, ? etiol, sent to ED, w/u pnd Renal cyst [address] 04/10 Type 2 diabetes mellitus (HCC) 2007 off rx for a few years, restarted 11/02 -Mpn/ [facility]ILA Past Surgical History: Past Surgical History: Procedure Laterality Date CATARACT EXTRACTION Bilateral 2013 [place] COLONOSCOPY 06/2018 Dr Frost- few polyps- due 2023 COLONOSCOPY 2012 [facility] COLONOSCOPY 06/2022 2 ileal AVMs treated per Dr Underwood- no f/u Cscope indicated DILATION AND CURETTAGE OF UTERUS EGD (HISTORICAL) 06/2022 Dr. Underwood- Hiatal hernia w/ duodenitis LAP,CHOLECYSTECTOMY (HISTORICAL) 2017 Schleuter LITHOTRIPSY 2006 MENISCECTOMY Right 1980 PARTIAL HYSTERECTOMY 1981 DUB- ovaries remaining UPPER GASTROINTESTINAL ENDOSCOPY 2012 neg per [facility]op[facility] Social History: Social History Socioeconomic History Marital status: Spouse name: Not on file Number of children: Not on file Years of education: Not on file Highest education level: Not on file Occupational History Not on file Tobacco Use Smoking status: Never Smokeless tobacco: Never Substance and Sexual Activity Alcohol use: No Drug use: No Sexual activity: Not on file Other Topics Concern Not on file Social History Narrative from [facility] who in 02/06. 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 Social Determinants of Health Financial Resource Strain: Not on file Food Insecurity: Not on file Transportation Needs: Not on file Physical Activity: Not on file Stress: Not on file Social Connections: Not on file Intimate Partner Violence: Not on file Housing Stability: Not on file Family History: Family History Problem Relation Name Age of Onset Rheum arthritis Mother mid 50s Prostate cancer Father age 76 Diabetes Sister Maria A insulin, CHF Diabetes Sister oral rx Other ([id number]) Brother Saul MVA 40 Prostate cancer Brother Wyatt No Known Problems Brother Other ([id number]) Brother Estel PAD, smoker- ischemic bowel w/ resection Heart failure Brother Estel Diabetes Brother Estel insulin, age 74 in 04/08 Diabetes Maternal Grandmother Diabetes Maternal Grandfather Diabetes Paternal Grandmother Diabetes Paternal Grandfather Medications Prior to Admission: Current Facility-Administered Medications on File Prior to Encounter Medication Dose Route Frequency Provider Last Rate Last Admin [COMPLETED] iopamidol (Isovue-370) 76 % injection 75 mL 75 mL IntraVENous Once PRN Alpesh Marroquin, DO 75 mL at 05/01/23 0942 Current Outpatient Medications on File Prior to Encounter Medication Sig Dispense Refill amLODIPine (Norvasc) 5 MG tablet Take 1 tablet (5 mg) by mouth daily. 90 tablet 1 atorvastatin (Lipitor) 10 MG tablet Take 1 tablet (10 mg) by mouth daily. 90 tablet 1 cholestyramine (Questran) 4 g packet Take 1 packet (4 g) by mouth daily. 90 packet 1 Continuous Blood Gluc Auto Body Technician (FreeStyle Javad 2 [employer]bee) device TEST GLUCOSE 4 TIMES DAILY BEFORE MEALS AND AT BEDTIME Continuous Glucose Monitor Sup kit Test glucose 4 times daily before meals and at bedtime 1 kit 0 Continuous Glucose Monitor Sup misc Test 4 times daily before meals and at bedtime 2 Device 11 cyanocobalamin (Vitamin B-12) 500 MCG tablet Take 1 tablet (500 mcg) by mouth daily. 90 tablet 1 dicyclomine (Bentyl) 10 MG capsule Take 1 capsule (10 mg) by mouth 2 times daily for 180 doses. 90 capsule 1 glimepiride (Amaryl) 4 MG tablet Take 1 tablet (4 mg) by mouth 2 times daily. 180 tablet 1 ibuprofen 200 MG tablet Take 200 mg by mouth. losartan-hydroCHLOROthiazide (Hyzaar) 100-12.5 MG tablet Take 1 tablet by mouth daily. 90 tablet 1 metFORMIN (Glucophage) 500 MG tablet Take 2 tablets (1,000 mg) by mouth 2 times daily. 360 tablet 1 omeprazole (PriLOSEC) [address] capsule Take 1 capsule (20 mg) by mouth daily. 90 capsule 1 [DISCONTINUED] predniSONE (Deltasone) 10 MG tablet 4 qday for 3 days, then 2 q day for 3 days, thenone q day till gone (Patient not taking: Reported on 05/01/2023) 21 tablet 0 Allergies: Allergies Allergen Reactions Kiwi Extract Swelling Mouth and lip swelling Other reaction(s): Swelling Lisinopril Other reaction(s): Other (See Comments) cough Other reaction(s): Other Other REVIEW OF SYSTEMS: Constitutional: Negative for fever, chills, activity change and unexpected weight change. HEENT: Negative for congestion, postnasal drip and sneezing. Eyes: Negative for itching and visual disturbance. Respiratory: Negative for apnea, choking, chest tightness,, wheezing and stridor. Positive for cough and short of breath Cardiovascular: Negative for chest pain. Gastrointestinal: Negative for nausea, vomiting, abdominal pain, diarrhea and blood in stool. Genitourinary: Negative for dysuria, frequency and flank pain. Musculoskeletal: Negative for myalgias and joint swelling. Skin: Negative for rash. Neurological: Negative for dizziness, tremors, seizures, syncope, facial asymmetry, speech difficulty, weakness, numbness and headaches. Hematological: Negative for adenopathy. Psychiatric/Behavioral: Negative for suicidal ideas, behavioral problems, self- injury and dysphoricmood. Vitals: BP 130/58 Pulse 68 Temp 36.4 C (97.5 F) (Temporal) Resp 16 SpO2 98% BMI Classification: Obese (BMI 30.0-39.9) Pulse Ox: SpO2 Av.3 % Min: 95 % Max: 98 % Supplemental O2: PHYSICAL EXAM: Physical Exam Vitals and nursing note reviewed. HENT: Mouth/Throat: Pharynx: Oropharynx is clear. Eyes: Conjunctiva/sclera: Conjunctivae normal. Cardiovascular: Rate and Rhythm: Normal rate. Heart sounds: Murmur heard. Pulmonary: Effort: Pulmonary effort is normal. No respiratory distress. Breath sounds: Rales present. No wheezing. Abdominal: General: Bowel sounds are normal. Tenderness: There is no abdominal tenderness. Musculoskeletal: Right lower leg: Edema present. Left lower leg: Edema present. Skin: General: Skin is warm. Capillary Refill: Capillary refill takes less than 2 seconds. Neurological: General: No focal deficit present. Mental Status: She is alert. DATA: CBC: Recent Labs 05/01/23 0854 WBC 10.4 RBC 3.99 HGB 11.3* HCT 35.5 MCV 89.0 RDW 13.4 PLT 384 BMP: Recent Labs 05/01/23 0854 NA 140 K 4.3 CL 102 CO2 26 BUN 13 CREATININE 1.05* GLUCOSE 184* CALCIUM 9.3 ANIONGAP 13 LIVER PROFILE:No results for input(s): AST, ALT, BILITOT, ALKPHOS, PROT in the last 72 hours. No lab exists for component: LABALBU PT/INR: No results for input(s): PROTIME, INR in the last 72 hours. CARDIAC ENZYMES: Recent Labs 05/01/23 1539 05/01/23 1657 TROPONINI <0.012 <0.012 Procalcitonin: No results found for: PROCAL Urine Culture: No results found for this or any previous visit. COVID-19 PCR: No results for input(s): COVID19 in the last 72 hours. I reviewed: [x] laboratory results [x] radiographic results At the time of today's encounter. Pt was advised of the results. Data: (CAT1) Reviewed 3 or more notes from different specialty or health system (each=1). (CAT1) Reviewed 3 or more labs/studies ordered by another provider not previously counted (each=1, panels count as 1). (CAT1) Ordered 3 or more new labs and/or studies (each=1, panels count as 1). (CAT3) Discussed with ED provider, Dr. Greenwood, regarding patient's eval & mgmt thus far, and agree with the plan for hospitalization. (LOW: 2x CAT1 or independent historian MOD: 3x CAT1 or 1x CAT3 EXTENSIVE: 3x CAT1 and 1x CAT3) Assessment Discussed management with the ED provider and agree with hospitalization. Acute, acute on chronic, unstable/uncontrolled chronic problems/diagnoses: Single subsegmental pulmonary embolism PE response team consulted Low risk - Hestia score +1, recommend eliquis treatment Formal echo Pulmonology consult Acute Deep vein thrombosis of popliteal vein of right lower extremity Shortness of breath 2/2 above Chronic kidney disease stage 3a Normocytic anemia Hypertension Amlodipine 5 mg po daily Losartan- hydrochlorothiazide 100-12.5 mg po daily Hyperlipidemia Atorvastatin 10 mg PO daily GERD PPT Type 2 diabetes Hold metformin Glimepirid substituted per formulary SSI, Hypoglycemia protocol Abdomen cramping Bentyl and cholestyramine Hx of AVM of colon - no recent bleeds, Small left adrenal nodule - repeat imaging in 1 year Plan As a result of the above findings & factors, the following mgmt was pursued: - orders as above, Admit to tele, ACP form completed and Patient DNR-CCA, - am labs, replace lytes prn - PT/OT/CM/SW - delirium precautions: increase activity and limit nighttime disturbances - DVT prophylaxis: encourage ambulation and already anticoagulated Complexity: Acute illness with systemic symptoms (MOD). Risk: Admission to hospital-level care was considered or occurred (HIGH). Advance Directive: No Order Anticipated Discharge - Date - 05/01 - Location - home - Pending the following - clinical improvement Total time spent (which include face to face and non face to face encounters) : 78 minutes. Toxic drug monitoring/narrow therapeutic index drug monitoring : # Drug name : eliquis and insulin # Route administered : oral and subq # Method of monitoring : monitor for bleeds, hypoglycemia protocol Extended Emergency Contact Information Primary Emergency Contact: Adilene Ng Mobile Relation: Daughter Vanessa Byrnes MD Division of Hospitalist Medicine [id number] History and physical note* Vanessa Byrnes MD - 05/01/2023 6:04 PM EDT Images from the original note were not included. Attending History and Physical Admit Date: 05/01/2023 PCP: Alpesh Marroquin DO CHIEF COMPLAINT: SOB Reason for Admission: PE and DVT History Obtained From: Patient HISTORY OF PRESENT ILLNESS: Cata is a 73 y.o. female with past medical history below who presents with chief complaint listed above. Patient has increased shortness of breath over the past few months, went to her doctor and was told it was likely RSV, when shortness of breath, and cough continued she went to her PCP in [place] and was given antibiotics and steroids. Condition continued until she went to PCP today, who ordered a CTA which showed bilateral PO. Patient stated that today she has SOB,cough, abnormal heart rhythm,chest pain when ambulation and light headedness. She was advised to go to ED. In ED, CTA was reviewed showing bilateral pulmonary emboli, with dilated main pulmonary artery, small indeterminate left adrenal nodule. Troponin negative, BNP low, Creatinine 1.05, Creat 55.5, Hgb 11.3 PE team Will admit for further evaluation and management. 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 Underwood- no f/u Cscope indicated B12 deficiency 02/2021 Breast cancer screening 09/2020 prefers every other year. Chronic diarrhea 2022 n/s colitis per Cscope Cystoid macular edema 2018 Michell Fraziervan Elbow fracture, left 1953 Essential hypertension 2011 GERD with esophagitis 2012 EGD 07/[address] Underwood- HH w/ duodenitis H/O colonoscopy 06/2022 Dr Underwood- ileal AVMs cauterized- no need for rech History of renal stone 2005 Iron deficiency anemia 2022 Dr. Serrano consult- resolved Left rotator cuff tear 2012 Lumbar disc disease 2005 MRI- right sciatica Post-cholecystectomy syndrome 2019 Pulmonary emboli (HCC) 04/2023 bilat, ? etiol, sent to ED, w/u pnd Renal cyst [address] 04/10 Type 2 diabetes mellitus (HCC) 2007 off rx for a few years, restarted 11/02 -Ailyn/ [facility] Past Surgical History: Past Surgical History: Procedure Laterality Date CATARACT EXTRACTION Bilateral 2013 [facility] COLONOSCOPY 06/2018 Dr Frost- few polyps- due 2023 COLONOSCOPY 2012 [facility] COLONOSCOPY 06/2022 2 ileal AVMs treated per Dr Underwood- no f/u Cscope indicated DILATION AND CURETTAGE OF UTERUS EGD (HISTORICAL) 06/2022 Dr. Underwood- Hiatal hernia w/ duodenitis LAP,CHOLECYSTECTOMY (HISTORICAL) 2017 Schleuter LITHOTRIPSY 2006 MENISCECTOMY Right 1980 PARTIAL HYSTERECTOMY 1981 DUB- ovaries remaining UPPER GASTROINTESTINAL ENDOSCOPY 2012 neg per [facility] Social History: Social History Socioeconomic History Marital status: Spouse name: Not on file Number of children: Not on file Years of education: Not on file Highest education level: Not on file Occupational History Not on file Tobacco Use Smoking status: Never Smokeless tobacco: Never Substance and Sexual Activity Alcohol use: No Drug use: No Sexual activity: Not on file Other Topics Concern Not on file Social History Narrative from [place] who in 02/06. 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 Social Determinants of Health Financial Resource Strain: Not on file Food Insecurity: Not on file Transportation Needs: Not on file Physical Activity: Not on file Stress: Not on file Social Connections: Not on file Intimate Partner Violence: Not on file Housing Stability: Not on file Family History: Family History Problem Relation Name Age of Onset Rheum arthritis Mother mid 50s Prostate cancer Father age 76 Diabetes Sister Maria A insulin, CHF Diabetes Sister oral rx Other ([id number]) Brother Saul MVA 40 Prostate cancer Brother Wyatt No Known Problems Brother Other ([id number]) Brother Tracey PAD, smoker- ischemic bowel w/ resection Heart failure Brother Tracey Diabetes Brother Tracey insulin, age 74 in 04/08 Diabetes Maternal Grandmother Diabetes Maternal Grandfather Diabetes Paternal Grandmother Diabetes Paternal Grandfather Medications Prior to Admission: Current Facility-Administered Medications on File Prior to Encounter Medication Dose Route Frequency Provider Last Rate Last Admin [COMPLETED] iopamidol (Isovue-370) 76 % injection 75 mL 75 mL IntraVENous Once PRN Alpesh Marroquin, DO 75 mL at 05/01/23 0941 Current Outpatient Medications on File Prior to Encounter Medication Sig Dispense Refill amLODIPine (Norvasc) 5 MG tablet Take 1 tablet (5 mg) by mouth daily. 90 tablet 1 atorvastatin (Lipitor) 10 MG tablet Take 1 tablet (10 mg) by mouth daily. 90 tablet 1 cholestyramine (Questran) 4 g packet Take 1 packet (4 g) by mouth daily. 90 packet 1 Continuous Blood Gluc Auto Body Technician (FreeStyle Javad 2 [employer]bee) device TEST GLUCOSE 4 TIMES DAILY BEFORE MEALS AND AT BEDTIME Continuous Glucose Monitor Sup kit Test glucose 4 times daily before meals and at bedtime 1 kit 0 Continuous Glucose Monitor Sup misc Test 4 times daily before meals and at bedtime 2 Device 11 cyanocobalamin (Vitamin B-12) 500 MCG tablet Take 1 tablet (500 mcg) by mouth daily. 90 tablet 1 dicyclomine (Bentyl) 10 MG capsule Take 1 capsule (10 mg) by mouth 2 times daily for 180 doses. 90 capsule 1 glimepiride (Amaryl) 4 MG tablet Take 1 tablet (4 mg) by mouth 2 times daily. 180 tablet 1 ibuprofen 200 MG tablet Take 200 mg by mouth. losartan-hydroCHLOROthiazide (Hyzaar) 100-12.5 MG tablet Take 1 tablet by mouth daily. 90 tablet 1 metFORMIN (Glucophage) 500 MG tablet Take 2 tablets (1,000 mg) by mouth 2 times daily. 360 tablet 1 omeprazole (PriLOSEC) [address] capsule Take 1 capsule (20 mg) by mouth daily. 90 capsule 1 [DISCONTINUED] predniSONE (Deltasone) 10 MG tablet 4 qday for 3 days, then 2 q day for 3 days, thenone q day till gone (Patient not taking: Reported on 05/01/2023) 21 tablet 0 Allergies: Allergies Allergen Reactions Kiwi Extract Swelling Mouth and lip swelling Other reaction(s): Swelling Lisinopril Other reaction(s): Other (See Comments) cough Other reaction(s): Other Other REVIEW OF SYSTEMS: Constitutional: Negative for fever, chills, activity change and unexpected weight change. HEENT: Negative for congestion, postnasal drip and sneezing. Eyes: Negative for itching and visual disturbance. Respiratory: Negative for apnea, choking, chest tightness,, wheezing and stridor. Positive for cough and short of breath Cardiovascular: Negative for chest pain. Gastrointestinal: Negative for nausea, vomiting, abdominal pain, diarrhea and blood in stool. Genitourinary: Negative for dysuria, frequency and flank pain. Musculoskeletal: Negative for myalgias and joint swelling. Skin: Negative for rash. Neurological: Negative for dizziness, tremors, seizures, syncope, facial asymmetry, speech difficulty, weakness, numbness and headaches. Hematological: Negative for adenopathy. Psychiatric/Behavioral: Negative for suicidal ideas, behavioral problems, self- injury and dysphoricmood. Vitals: BP 130/58 Pulse 68 Temp 36.4 C (97.5 F) (Temporal) Resp 16 SpO2 98% BMI Classification: Obese (BMI 30.0-39.9) Pulse Ox: SpO2 Av.3 % Min: 95 % Max: 98 % Supplemental O2: PHYSICAL EXAM: Physical Exam Vitals and nursing note reviewed. HENT: Mouth/Throat: Pharynx: Oropharynx is clear. Eyes: Conjunctiva/sclera: Conjunctivae normal. Cardiovascular: Rate and Rhythm: Normal rate. Heart sounds: Murmur heard. Pulmonary: Effort: Pulmonary effort is normal. No respiratory distress. Breath sounds: Rales present. No wheezing. Abdominal: General: Bowel sounds are normal. Tenderness: There is no abdominal tenderness. Musculoskeletal: Right lower leg: Edema present. Left lower leg: Edema present. Skin: General: Skin is warm. Capillary Refill: Capillary refill takes less than 2 seconds. Neurological: General: No focal deficit present. Mental Status: She is alert. DATA: CBC: Recent Labs 05/01/23 0854 WBC 10.4 RBC 3.99 HGB 11.3* HCT 35.5 MCV 89.0 RDW 13.4 PLT 384 BMP: Recent Labs 05/01/23 0854 NA 140 K 4.3 CL 102 CO2 26 BUN 13 CREATININE 1.05* GLUCOSE 184* CALCIUM 9.3 ANIONGAP 13 LIVER PROFILE:No results for input(s): AST, ALT, BILITOT, ALKPHOS, PROT in the last 72 hours. No lab exists for component: LABALBU PT/INR: No results for input(s): PROTIME, INR in the last 72 hours. CARDIAC ENZYMES: Recent Labs 05/01/23 1539 05/01/23 1657 TROPONINI <0.012 <0.012 Procalcitonin: No results found for: PROCAL Urine Culture: No results found for this or any previous visit. COVID-19 PCR: No results for input(s): COVID19 in the last 72 hours. I reviewed: [x] laboratory results [x] radiographic results At the time of today's encounter. Pt was advised of the results. Data: (CAT1) Reviewed 3 or more notes from different specialty or health system (each=1). (CAT1) Reviewed 3 or more labs/studies ordered by another provider not previously counted (each=1, panels count as 1). (CAT1) Ordered 3 or more new labs and/or studies (each=1, panels count as 1). (CAT3) Discussed with ED provider, Dr. Greenwood, regarding patient's eval & mgmt thus far, and agree with the plan for hospitalization. (LOW: 2x CAT1 or independent historian MOD: 3x CAT1 or 1x CAT3 EXTENSIVE: 3x CAT1 and 1x CAT3) Assessment Discussed management with the ED provider and agree with hospitalization. Acute, acute on chronic, unstable/uncontrolled chronic problems/diagnoses: Single subsegmental pulmonary embolism PE response team consulted Low risk - Hestia score +1, recommend eliquis treatment Formal echo Pulmonology consult Acute Deep vein thrombosis of popliteal vein of right lower extremity Shortness of breath 2/2 above Chronic kidney disease stage 3a Normocytic anemia Hypertension Amlodipine 5 mg po daily Losartan- hydrochlorothiazide 100-12.5 mg po daily Hyperlipidemia Atorvastatin 10 mg PO daily GERD PPT Type 2 diabetes Hold metformin Glimepirid substituted per formulary SSI, Hypoglycemia protocol Abdomen cramping Bentyl and cholestyramine Hx of AVM of colon - no recent bleeds, Small left adrenal nodule - repeat imaging in 1 year Plan As a result of the above findings & factors, the following mgmt was pursued: - orders as above, Admit to tele, ACP form completed and Patient DNR-CCA, - am labs, replace lytes prn - PT/OT/CM/SW - delirium precautions: increase activity and limit nighttime disturbances - DVT prophylaxis: encourage ambulation and already anticoagulated Complexity: Acute illness with systemic symptoms (MOD). Risk: Admission to hospital-level care was considered or occurred (HIGH). Advance Directive: No Order Anticipated Discharge - Date - 05/01 - Location - home - Pending the following - clinical improvement Total time spent (which include face to face and non face to face encounters) : 78 minutes. Toxic drug monitoring/narrow therapeutic index drug monitoring : # Drug name : eliquis and insulin # Route administered : oral and subq # Method of monitoring : monitor for bleeds, hypoglycemia protocol Extended Emergency Contact Information Primary Emergency Contact: Adilene Ng Mobile Relation: Daughter Vanessa Byrnes MD Division of Hospitalist Medicine [facility] documented in this [facility]03-15-2024 Note* Care Coordination - Macrina Victor APRN - ZOILA - 05/01/2023 3:42 PM EDT Images from the original note were not included. PE Response Team Triage Brief HPI: 73 YO male w/PMH Colonic AVM, T2DM, HTN, GERD, and iron deficiency anemia. Patient arrived to [facility] ED with C/O of blood clots in her lungs. Patient w/cough and SOB on exertion for several months presented to ED and left w/o and lab or radiological work-up. Patient saw PCP in 03/2023, was given steroids and antibiotics for URI that never full resolved. She presented today to PCP for concerns of SOB,cough, palpitations, right-sided dyspneic chest pain, and a feeling of lightheadedness when she bends over. CTA showed Bilateral PE. Filling defects compatible with pulmonary emboli are present in the lobar pulmonary artery branches to the upper lobes in segmental and subsegmental branches to the bilateral upper and bilateral lower lobes. Dilated main pulmonary artery to 4.3 cm The RV/LV ratio is0.7, No consolidation or pleural effusion. Dilated main PA correlate for possible pulmonary hypertension.She was sent to the emergency department for further evaluation. Patient with no known prior history of clots, is not on blood thinners and no other high risk criteria met. Hemodynamic instability: No RV Strain: No Troponin >0.120: No No results found for: TROPONINI High-risk Criteria No [] Saddle embolism or occlusive main PA emboli [] High flow oxygen need or respiratory distress [] Syncope [] Significant related comorbidities -- I.e., cancer, clotting disorder, hx DVT/PE, VTE already on AC Contraindication to Anticoagulation Contraindication to Thrombolytics No apparent contraindications noted No apparent contraindications noted [] Active, clinically significant bleeding [] Severe uncontrolled hypertension [] Ischemic stroke within 3 months [] Recent intracranial hemorrhage [] Recent LP/epidural [] Structural cerebrovascular lesion or intracranial neoplasm [] Major trauma [] Invasive procedure or OB delivery [] Active bleeding (excluding menses) [] Severe uncontrolled hypertension [] Ischemic stroke within 3 months [] Recent intracranial hemorrhage [] Significant head injury or facial trauma within the last 3 months [] Recent intracranial or spinal surgery [] Structural cerebrovascular lesion or intracranial neoplasm [] Possible aortic dissection Assessment/Recommendation: Low Risk PE Anticoagulation Recommendations: Eliquis 10mg BID x 7 days followed by 5mg BID Care Plan Recommendations: LOW RISK PE: Hestia score 1+ Disposition Recommendations: -Admit to inpatient/observation -Pulmonology consult PE protocol orders placed by PERT [x] Serial troponin q4h x 3 [x] STAT BNP and again in AM [x] Formal 2D Echo [x] Lower extremity duplex -- symptomatic DVT only [] Interventional Cardiology consult [x] Pulmonary consult [] PE Clinic Referral -- follow-up appointment on [facility] This consultation was completed remotely. The above information is based on the HPI and informationprovided by the primary service. Recommendations for PE treatment reflect this information and final treatment decisions and disposition are deferred to the clinical judgment of the primary service. [facility]03-15-2024 Note* Care Coordination - Macrina HartNasimClark, TOP STOP ATTACHER - BOOTMAKER HAND - 05/01/2023 3:42 PM EDT Images from the original note were not included. PE Response Team Triage Brief HPI: 73 YO male w/PMH Colonic AVM, T2DM, HTN, GERD, and iron deficiency anemia. Patient arrived to [facility] ED with C/O of blood clots in her lungs. Patient w/cough and SOB on exertion for several months presented to ED and left w/o and lab or radiological work-up. Patient saw PCP in 03/2023, was given steroids and antibiotics for URI that never full resolved. She presented today to PCP for concerns of SOB,cough, palpitations, right-sided dyspneic chest pain, and a feeling of lightheadedness when she bends over. CTA showed Bilateral PE. Filling defects compatible with pulmonary emboli are present in the lobar pulmonary artery branches to the upper lobes in segmental and subsegmental branches to the bilateral upper and bilateral lower lobes. Dilated main pulmonary artery to 4.3 cm The RV/LV ratio is0.7, No consolidation or pleural effusion. Dilated main PA correlate for possible pulmonary hypertension.She was sent to the emergency department for further evaluation. Patient with no known prior history of clots, is not on blood thinners and no other high risk criteria met. Hemodynamic instability: No RV Strain: No Troponin >0.120: No No results found for: TROPONINI High-risk Criteria No [] Saddle embolism or occlusive main PA emboli [] High flow oxygen need or respiratory distress [] Syncope [] Significant related comorbidities -- I.e., cancer, clotting disorder, hx DVT/PE, VTE already on AC Contraindication to Anticoagulation Contraindication to Thrombolytics No apparent contraindications noted No apparent contraindications noted [] Active, clinically significant bleeding [] Severe uncontrolled hypertension [] Ischemic stroke within 3 months [] Recent intracranial hemorrhage [] Recent LP/epidural [] Structural cerebrovascular lesion or intracranial neoplasm [] Major trauma [] Invasive procedure or OB delivery [] Active bleeding (excluding menses) [] Severe uncontrolled hypertension [] Ischemic stroke within 3 months [] Recent intracranial hemorrhage [] Significant head injury or facial trauma within the last 3 months [] Recent intracranial or spinal surgery [] Structural cerebrovascular lesion or intracranial neoplasm [] Possible aortic dissection Assessment/Recommendation: Low Risk PE Anticoagulation Recommendations: Eliquis 10mg BID x 7 days followed by 5mg BID Care Plan Recommendations: LOW RISK PE: Hestia score 1+ Disposition Recommendations: -Admit to inpatient/observation -Pulmonology consult PE protocol orders placed by PERT [x] Serial troponin q4h x 3 [x] STAT BNP and again in AM [x] Formal 2D Echo [x] Lower extremity duplex -- symptomatic DVT only [] Interventional Cardiology consult [x] Pulmonary consult [] PE Clinic Referral -- follow-up appointment on AVS This consultation was completed remotely. The above information is based on the HPI and informationprovided by the primary service. Recommendations for PE treatment reflect this information and final treatment decisions and disposition are deferred to the clinical judgment of the primary service. [id number] Emergency [facility] Note* Tomas Reaves MD - 05/01/2023 2:49 PM EDT EMERGENCY DEPARTMENT ENCOUNTER Pt Name: Cata Ayers Birthdate 1950 Date of evaluation: 05/01/2023 ED Provider: Tomas Reaves MD CHIEF COMPLAINT Chief Complaint Patient presents with Shortness of Breath Patient arrives to ED via car with complaints of blood clots in her lungs. Patient states that she is short of breath on exertion so was seen at [facility]. Had a CT of her chest done and was informed that she needs to stay overnight for blood clots in her lungs. Does not take blood thinners. Hassome dull chest pain when she exerts herself. HISTORY OF PRESENT ILLNESS (Location/Symptom, Timing/Onset, Context/Setting, Quality, Duration, Modifying Factors, Severity) Note limiting factors. I wore appropriate PPE for the entirety of this encounter. HPI Cata Ayers is a 73 y.o. with history of colonic AVM, diabetes mellitus, hypertension, GERD who presents to the emergency department for pulmonary embolism noted on CT a of the chest performed today. Per patient she has been having several months of coughing and shortness of breath, previously presented at the [facility] emergency department but according to ED provider note she left without laboratory evaluation. Patient saw primary care physician in March and was given steroids and antibiotics for concern for upper respiratory infection. She presented today to the family medicine doctor for concerns of shortness of breath, cough, palpitations, right-sided dyspneic chest pain, and a feeling of lightheadedness when she bends over. She was sent to imaging to get a CTA which confirmed pulmonary embolism. She was sent to the emergency department for further evaluation. She is alert and oriented x 4 and answering all questions appropriately. She is saturating well on room air with stablevital signs. She is denying any left-sided chest pain, chest pain with radiation, syncope, recent falls or traumas, history of cancer, family history of blood clots, estrogen use, tobacco use, recenttravel, recent surgery, recent immobilizations. Nursing Notes were reviewed. Limitations to history: None Outside historians: Family daughter REVIEW OF SYSTEMS Review of Systems Constitutional: Negative for chills and fever. HENT: Negative for ear pain and sore throat. Eyes: Negative for pain and visual disturbance. Respiratory: Positive for cough, chest tightness, shortness of breath and wheezing. Cardiovascular: Positive for palpitations. Negative for chest pain. Gastrointestinal: Positive for nausea. Negative for abdominal pain, blood in stool, constipation and vomiting. Genitourinary: Negative for dysuria and hematuria. Musculoskeletal: Negative for arthralgias and back pain. Skin: Negative for color change and rash. Neurological: Negative for dizziness, tremors, seizures, syncope, facial asymmetry, speech difficulty, weakness and numbness. Psychiatric/Behavioral: Negative for confusion. All other systems reviewed and are negative. Pertinent positives and negatives as per HPI. 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 Underwood- no f/u Cscope indicated B12 deficiency 02/2021 Breast cancer screening 09/2020 prefers every other year. Chronic diarrhea 2022 n/s colitis per Cscope Cystoid macular edema 2019 Schartman, Optho Elbow fracture, left 195 Essential hypertension 2011 GERD with esophagitis 2012 EGD 07/[address] Underwood- HH w/ duodenitis H/O colonoscopy 06/2022 Dr Underwood- ileal AVMs cauterized- no need for rech History of renal stone 2005 Iron deficiency anemia 2022 Dr. Serrano consult- resolved Left rotator cuff tear 2011 Lumbar disc disease 2005 MRI- right sciatica Post-cholecystectomy syndrome 2019 Pulmonary emboli (HCC) 04/2023 bilat, ? etiol, sent to ED, w/u pnd Renal cyst [address] 04/10 Type 2 diabetes mellitus (HCC) 2007 off rx for a few years, restarted 11/02 -[facility] SURGICAL HISTORY Past Surgical History: Procedure Laterality Date CATARACT EXTRACTION Bilateral 2013 [facility] COLONOSCOPY 06/2018 Dr Frost- few polyps- due 2023 COLONOSCOPY 2012 [facility] COLONOSCOPY 06/2022 2 ileal AVMs treated per Dr Underwood- no f/u Cscope indicated DILATION AND CURETTAGE OF UTERUS EGD (HISTORICAL) 06/2022 Dr. Underwood- Hiatal hernia w/ duodenitis LAP,CHOLECYSTECTOMY (HISTORICAL) 2017 Schleuter LITHOTRIPSY 2006 MENISCECTOMY Right 1980 PARTIAL HYSTERECTOMY 1981 DUB- ovaries remaining UPPER GASTROINTESTINAL ENDOSCOPY 2012 neg per Gopi CURRENT MEDICATIONS Previous Medications AMLODIPINE (NORVASC) 5 MG TABLET Take 1 tablet (5 mg) by mouth daily. ATORVASTATIN (LIPITOR) 10 MG TABLET Take 1 tablet (10 mg) by mouth daily. CHOLESTYRAMINE (QUESTRAN) 4 G PACKET Take 1 packet (4 g) by mouth daily. CONTINUOUS BLOOD GLUC FOUNDRY MANAGER (FREESTYLE JAVAD 2 READER) DEVICE TEST GLUCOSE 4 TIMES DAILY BEFORE MEALS AND AT BEDTIME CONTINUOUS GLUCOSE MONITOR SUP KIT Test glucose 4 times daily before meals and at bedtime CONTINUOUS GLUCOSE MONITOR SUP MISC Test 4 times daily before meals and at bedtime CYANOCOBALAMIN (VITAMIN B-12) 500 MCG TABLET Take 1 tablet (500 mcg) by mouth daily. DICYCLOMINE (BENTYL) 10 MG CAPSULE Take 1 capsule (10 mg) by mouth 2 times daily for 180 doses. GLIMEPIRIDE (AMARYL) 4 MG TABLET Take 1 tablet (4 mg) by mouth 2 times daily. IBUPROFEN 200 MG TABLET Take 200 mg by mouth. LOSARTAN-HYDROCHLOROTHIAZIDE (HYZAAR) 100-12.5 MG TABLET Take 1 tablet by mouth daily. METFORMIN (GLUCOPHAGE) 500 MG TABLET Take 2 tablets (1,000 mg) by mouth 2 times daily. OMEPRAZOLE (PRILOSEC) [address] CAPSULE Take 1 capsule (20 mg) by mouth daily. ALLERGIES Kiwi extract, Lisinopril, and Other FAMILY HISTORY Family History Problem Relation Name Age of Onset Rheum arthritis Mother mid 50s Prostate cancer Father age 76 Diabetes Sister Maria A insulin, CHF Diabetes Sister oral rx Other ([id number]) Brother Saul MVA 40 Prostate cancer Brother Wyatt No Known Problems Brother Other ([id number]) Brother Tracey PAD, smoker- ischemic bowel w/ resection Heart failure Brother Tracey Diabetes Brother Tracey insulin, age 74 in 04/08 Diabetes Maternal Grandmother Diabetes Maternal Grandfather Diabetes Paternal Grandmother Diabetes Paternal Grandfather SOCIAL HISTORY Social History Socioeconomic History Marital status: Tobacco Use Smoking status: Never Smokeless tobacco: Never Substance and Sexual Activity Alcohol use: No Drug use: No Social History Narrative from [facility] who in 02/06. 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 Constitutional: General: She is not in acute distress. Appearance: She is well-developed. She is not diaphoretic. HENT: Head: Normocephalic and atraumatic. Eyes: Extraocular Movements: Extraocular movements intact. Conjunctiva/sclera: Conjunctivae normal. Pupils: Pupils are equal, round, and reactive to light. Cardiovascular: Rate and Rhythm: Normal rate and regular rhythm. Heart sounds: No murmur heard. Pulmonary: Effort: Pulmonary effort is normal. No respiratory distress. Breath sounds: Normal breath sounds. No decreased breath sounds. Chest: Chest wall: No deformity or tenderness. Abdominal: Palpations: Abdomen is soft. Tenderness: There is no abdominal tenderness. Musculoskeletal: General: No swelling. Cervical back: Normal range of motion and neck supple. Right lower leg: No tenderness. Left lower leg: No tenderness. Skin: General: Skin is warm and dry. Capillary Refill: Capillary refill takes less than 2 seconds. Neurological: Mental Status: She is alert and oriented to person, place, and time. GCS: GCS eye subscore is 4. GCS verbal subscore is 5. GCS motor subscore is 6. Cranial Nerves: Cranial nerves 2-12 are intact. Sensory: Sensation is intact. Motor: No weakness. Psychiatric: Mood and Affect: Mood normal. DIAGNOSTIC RESULTS RADIOLOGY (Per Emergency Physician): Interpretation per the Radiologist below, if available at the time of this note: Vascular US lower extremity venous duplex bilateral Final Result LABS: Labs Reviewed TROPONIN, WITH SERIAL REFLEX - Normal Result Value TROPONIN I <0.012 Narrative: Patients with high levels of Biotin oral intake (ie >5 mg/day) may have falsely decreased Troponin levels. NT PRO BNP - Normal NT PRO BNP 51 TROPONIN, WITH SERIAL REFLEX - Normal TROPONIN I <0.012 Narrative: Patients with high levels of Biotin oral intake (ie >5 mg/day) may have falsely decreased Troponin levels. TROPONIN I TROPONIN I All other labs were within normal range or not returned as of this dictation. EMERGENCY DEPARTMENT COURSE and DIFFERENTIAL DIAGNOSIS/MDM: Vitals: Vitals: 05/01/23 1456 05/01/23 1657 BP: 134/76 130/58 Pulse: 74 68 Resp: 16 16 Temp: 36.4 C (97.5 F) TempSrc: Temporal SpO2: 96% 98% The patient presented with a chief complaint of evaluation for pulmonary embolism as seen on CT scan this morning ordered by PCP. This comes in the setting of several months of cough and shortness ofbreath, patient not on any anticoagulation currently. The differential diagnosis associated with this patient's presentation includes pulmonary embolism versus massive pulmonary embolism. Our workup consisted of ordering/reviewing troponin, EKG, and proBNP to check for signs of right heart strain. Venous duplex of the bilateral lower extremities was performed as well. Pulmonary embolism response team was consulted. ED Course as of 05/01/231809May 01, 2023 1506 CTA of the chest performed today showed Filling defects compatible with pulmonary emboli are present in the lobar pulmonary artery branches to the upper lobes in segmental and subsegmental branches to the bilateral upper and bilateral lower lobes. Dilated main pulmonary artery to 4.3 cm [PO] 1542 Secure chat to pulmonary embolism response team [PO] 1703 Per pulmonary embolism response team plan will be to start Eliquis on patient at 10 mg twice daily, we will admit to the general medical floor secondary to patient's HESTIA score. Interventionalcardiology was consulted. TTE, venous duplex, and remainder of PERT team orders will be placed. [PO] 1706 On patient reevaluation blood pressure was 130/58 with a heart rate of 68. There is saturatingat 98% on room air with respiratory rate of 16. Patient remained afebrile. Alert and oriented and answering all questions. [PO] 1730 Venous duplex of legs show an acute right posterior tibial DVT. Left leg is ok [PO] 1739 TROPONIN I: <0.012 [PO] 1740 NT PRO BNP: 51 [PO] 1753 Patient started on first dose of Eliquis. Plan to admit to hospital was discussed with the patient as well as results of all evaluations, patient expressed understanding and verbalized agreementwith the plan. Patient will be admitted to the general medical floor in stable condition for further treatment and evaluation of pulmonary embolism with final disposition per primary team. [PO] ED Course User Index [PO] Tomas Reaves MD Diagnoses as of 05/01/231809 PE (pulmonary thromboembolism) (HCC) Acute deep vein thrombosis (DVT) of popliteal vein of right lower extremity (HCC) Shortness of breath External records reviewed: Outpatient notes prior emergency department visit in January 2023 which showed a negative chest x-ray, however, patient did not stay for further evaluation. Also showed multiple PCP visits for cough, steroids and antibiotics given at first visit, CTA of the chest ordered at visit today which showed a pulmonary embolism as described above. Diagnostics interpreted by me: EKG(s) that showed no signs of right heart strain at this time, no signs of ischemia or infarct as interpreted by me. CT scan(s) showed filling defects compatible with pulmonary embolism in the lobar pulmonary artery branches in the upper lobes and sailed segmental and segmental branches with a dilated pulmonary artery. Ultrasound(s) of the bilateral lower extremities which showed an acute right posterior tibial DVT. Discussions with other clinicians: [employer] pulmonary embolism response team who also spoke with interventional cardiology. ED Medications managed: Medications apixaban (Eliquis) tablet 10 mg (10 mg Oral Given 05/01/23 1706) Prescription drugs considered: Anticoagulation with apixaban 10 mg twice daily x 7 days PROCEDURES: Unless otherwise noted below, none Procedures FINAL IMPRESSION 1. Single subsegmental pulmonary embolism without acute cor pulmonale (HCC) 2. PE (pulmonary thromboembolism) ([facility]) 3. Acute deep vein thrombosis (DVT) of popliteal vein of right lower extremity ([facility]) 4. Shortness of breath DISPOSITION Admit 05/01/2023 06:09:04 PM PATIENT REFERRED TO: No follow-up provider specified. DISCHARGE MEDICATIONS: New Prescriptions No medications on file (Comment: Please note this report has been produced using speech recognition software and may contain errors related to that system including errors in grammar, punctuation, and spelling, as well as words and phrases that may be inappropriate. If there are any questions or concerns please feel freeto contact the dictating provider for clarification.) Tomas Reaves MD (electronically signed) Emergency Medicine Provider Tomas Reaves MD Resident 05/01/231809 documented in this [facility]03-15-2024 Note* ED Attestation Note - Oliver Saenz DO - 05/01/2023 2:49 PM EDT Emergency Department Encounter [facility] ED Patient: Cata Ayers : 1950 Date of Evaluation: 05/01/2023 ED Supervising Physician: Oliver Saenz DO I personally evaluated Cata Ayers and made/approved the management plan and take responsibility forthe patient management. This will serve as my Supervisory note and shared attestation. I did perform a substantive portion of the visit including all aspects of the Medical Decision Making. I wore appropriate PPE for the entirety of this encounter. In brief, Cata Ayers is a 73 y.o. that presents to the emergency department for evaluation of knownbilateral pulm emboli. Having increased shortness of breath. She reports that she did recently travel to [place] however symptoms were ongoing at that time prior to the trip. She currently feels well and is asymptomatic. She is not on any blood thinners. Focused exam: Alert, nontoxic, in no distress heart regular rate and rhythm. No calf tenderness. Lungs clear to auscultation bilaterally. Abdomen soft nontender. Brief ED course/MDM: Patient presented to emergency department for evaluation of bilateral pulmonary emboli. This was found on outpatient imaging. Ultrasound bilateral lower extremities reveals DVT in the right posterior tibial vein. In discussion with PE response team they are recommending Eliquisand admission for observation. She remained hemodynamically stable here. Her troponins were both negative. All diagnostic, treatment, and disposition decisions were made by myself in conjunction with the Resident. I also supervised elizalde portions of any procedures performed by the Resident. For all further details of the patient's emergency department visit, please see their documentation. (Comment: Please note this report has been produced using speech recognition software and may contain errors related to that system including errors in grammar, punctuation, and spelling, as well as words and phrases that may be inappropriate. If there are any questions or concerns please feel freeto contact the dictating provider for clarification.) Oliver Saenz DO [employer] Oliver Saenz DO 05/01/23 1759 [employer] Phone: [phone] 534-999803-15-2024 Note* ED Attestation Note - Oliver Saenz DO - 05/01/2023 2:49 PM EDT Emergency Department Encounter [facility] ED Patient: Cata Ayers : 1950 Date of Evaluation: 05/01/2023 ED Supervising Physician: Oliver Saenz DO I personally evaluated Cata Ayers and made/approved the management plan and take responsibility forthe patient management. This will serve as my Supervisory note and shared attestation. I did perform a substantive portion of the visit including all aspects of the Medical Decision Making. I wore appropriate PPE for the entirety of this encounter. In brief, Cata Ayers is a 73 y.o. that presents to the emergency department for evaluation of knownbilateral pulm emboli. Having increased shortness of breath. She reports that she did recently travel to [place] however symptoms were ongoing at that time prior to the trip. She currently feels well and is asymptomatic. She is not on any blood thinners. Focused exam: Alert, nontoxic, in no distress heart regular rate and rhythm. No calf tenderness. Lungs clear to auscultation bilaterally. Abdomen soft nontender. Brief ED course/MDM: Patient presented to emergency department for evaluation of bilateral pulmonary emboli. This was found on outpatient imaging. Ultrasound bilateral lower extremities reveals DVT in the right posterior tibial vein. In discussion with PE response team they are recommending Eliquisand admission for observation. She remained hemodynamically stable here. Her troponins were both negative. All diagnostic, treatment, and disposition decisions were made by myself in conjunction with the Resident. I also supervised elizalde portions of any procedures performed by the Resident. For all further details of the patient's emergency department visit, please see their documentation. (Comment: Please note this report has been produced using speech recognition software and may contain errors related to that system including errors in grammar, punctuation, and spelling, as well as words and phrases that may be inappropriate. If there are any questions or concerns please feel freeto contact the dictating provider for clarification.) Oliver Saenz DO Acute Care [facility] Oliver Saenz DO 05/01/23 9114 [employer] Phone: [phone] 888-890203-15-2024 Physician Emergency department Note* Tomas Reaves MD - 05/01/2023 2:49 PM EDT EMERGENCY DEPARTMENT ENCOUNTER Pt Name: Cata Ayers Birthdate 1950 Date of evaluation: 05/01/2023 ED Provider: Tomas Reaves MD CHIEF COMPLAINT Chief Complaint Patient presents with Shortness of Breath Patient arrives to ED via car with complaints of blood clots in her lungs. Patient states that she is short of breath on exertion so was seen at [facility]. Had a CT of her chest done and was informed that she needs to stay overnight for blood clots in her lungs. Does not take blood thinners. Hassome dull chest pain when she exerts herself. HISTORY OF PRESENT ILLNESS (Location/Symptom, Timing/Onset, Context/Setting, Quality, Duration, Modifying Factors, Severity) Note limiting factors. I wore appropriate PPE for the entirety of this encounter. HPI Cata Ayers is a 73 y.o. with history of colonic AVM, diabetes mellitus, hypertension, GERD who presents to the emergency department for pulmonary embolism noted on CT a of the chest performed today. Per patient she has been having several months of coughing and shortness of breath, previously presented at the [facility] emergency department but according to ED provider note she left without laboratory evaluation. Patient saw primary care physician in March and was given steroids and antibiotics for concern for upper respiratory infection. She presented today to the family medicine doctor for concerns of shortness of breath, cough, palpitations, right-sided dyspneic chest pain, and a feeling of lightheadedness when she bends over. She was sent to imaging to get a CTA which confirmed pulmonary embolism. She was sent to the emergency department for further evaluation. She is alert and oriented x 4 and answering all questions appropriately. She is saturating well on room air with stablevital signs. She is denying any left-sided chest pain, chest pain with radiation, syncope, recent falls or traumas, history of cancer, family history of blood clots, estrogen use, tobacco use, recenttravel, recent surgery, recent immobilizations. Nursing Notes were reviewed. Limitations to history: None Outside historians: Family daughter REVIEW OF SYSTEMS Review of Systems Constitutional: Negative for chills and fever. HENT: Negative for ear pain and sore throat. Eyes: Negative for pain and visual disturbance. Respiratory: Positive for cough, chest tightness, shortness of breath and wheezing. Cardiovascular: Positive for palpitations. Negative for chest pain. Gastrointestinal: Positive for nausea. Negative for abdominal pain, blood in stool, constipation and vomiting. Genitourinary: Negative for dysuria and hematuria. Musculoskeletal: Negative for arthralgias and back pain. Skin: Negative for color change and rash. Neurological: Negative for dizziness, tremors, seizures, syncope, facial asymmetry, speech difficulty, weakness and numbness. Psychiatric/Behavioral: Negative for confusion. All other systems reviewed and are negative. Pertinent positives and negatives as per HPI. 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 Underwood- no f/u Cscope indicated B12 deficiency 02/2021 Breast cancer screening 09/2020 prefers every other year. Chronic diarrhea 2022 n/s colitis per Cscope Cystoid macular edema 2018 Schartman, Optho Elbow fracture, left 195 Essential hypertension 2011 GERD with esophagitis 2012 EGD 07/[address] Underwood- HH w/ duodenitis H/O colonoscopy 06/2022 Dr Underwood- ileal AVMs cauterized- no need for rech History of renal stone 2006 Iron deficiency anemia 2022 Dr. Serrano consult- resolved Left rotator cuff tear 2011 Lumbar disc disease 2005 MRI- right sciatica Post-cholecystectomy syndrome 2019 Pulmonary emboli (HCC) 04/2023 bilat, ? etiol, sent to ED, w/u pnd Renal cyst [address] 04/10 Type 2 diabetes mellitus (HCC) 2007 off rx for a few years, restarted 11/02 -[facility] SURGICAL HISTORY Past Surgical History: Procedure Laterality Date CATARACT EXTRACTION Bilateral 2013 [facility] COLONOSCOPY 06/2018 Dr Frost- few polyps- due 2023 COLONOSCOPY 2012 Gopi COLONOSCOPY 06/2022 2 ileal AVMs treated per Dr Underwood- no f/u Cscope indicated DILATION AND CURETTAGE OF UTERUS EGD (HISTORICAL) 06/2022 Dr. Underwood- Hiatal hernia w/ duodenitis LAP,CHOLECYSTECTOMY (HISTORICAL) 2017 Schleuter LITHOTRIPSY 2006 MENISCECTOMY Right 1980 PARTIAL HYSTERECTOMY 1982 DUB- ovaries remaining UPPER GASTROINTESTINAL ENDOSCOPY 2012 neg per Gopi CURRENT MEDICATIONS Previous Medications AMLODIPINE (NORVASC) 5 MG TABLET Take 1 tablet (5 mg) by mouth daily. ATORVASTATIN (LIPITOR) 10 MG TABLET Take 1 tablet (10 mg) by mouth daily. CHOLESTYRAMINE (QUESTRAN) 4 G PACKET Take 1 packet (4 g) by mouth daily. CONTINUOUS BLOOD GLUC FOUNDRY MANAGER (FREESTYLE JAVAD 2 READER) DEVICE TEST GLUCOSE 4 TIMES DAILY BEFORE MEALS AND AT BEDTIME CONTINUOUS GLUCOSE MONITOR SUP KIT Test glucose 4 times daily before meals and at bedtime CONTINUOUS GLUCOSE MONITOR SUP MISC Test 4 times daily before meals and at bedtime CYANOCOBALAMIN (VITAMIN B-12) 500 MCG TABLET Take 1 tablet (500 mcg) by mouth daily. DICYCLOMINE (BENTYL) 10 MG CAPSULE Take 1 capsule (10 mg) by mouth 2 times daily for 180 doses. GLIMEPIRIDE (AMARYL) 4 MG TABLET Take 1 tablet (4 mg) by mouth 2 times daily. IBUPROFEN 200 MG TABLET Take 200 mg by mouth. LOSARTAN-HYDROCHLOROTHIAZIDE (HYZAAR) 100-12.5 MG TABLET Take 1 tablet by mouth daily. METFORMIN (GLUCOPHAGE) 500 MG TABLET Take 2 tablets (1,000 mg) by mouth 2 times daily. OMEPRAZOLE (PRILOSEC) [address] CAPSULE Take 1 capsule (20 mg) by mouth daily. ALLERGIES Kiwi extract, Lisinopril, and Other FAMILY HISTORY Family History Problem Relation Name Age of Onset Rheum arthritis Mother mid 50s Prostate cancer Father age 76 Diabetes Sister Maria A insulin, CHF Diabetes Sister oral rx Other ([id number]) Brother Saul MVA 40 Prostate cancer Brother Wyatt No Known Problems Brother Other ([id number]) Brother Tracey PAD, smoker- ischemic bowel w/ resection Heart failure Brother Tracey Diabetes Brother Tracey insulin, age 74 in 04/08 Diabetes Maternal Grandmother Diabetes Maternal Grandfather Diabetes Paternal Grandmother Diabetes Paternal Grandfather SOCIAL HISTORY Social History Socioeconomic History Marital status: Tobacco Use Smoking status: Never Smokeless tobacco: Never Substance and Sexual Activity Alcohol use: No Drug use: No Social History Narrative from O[place] who in 02/06. 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 Constitutional: General: She is not in acute distress. Appearance: She is well-developed. She is not diaphoretic. HENT: Head: Normocephalic and atraumatic. Eyes: Extraocular Movements: Extraocular movements intact. Conjunctiva/sclera: Conjunctivae normal. Pupils: Pupils are equal, round, and reactive to light. Cardiovascular: Rate and Rhythm: Normal rate and regular rhythm. Heart sounds: No murmur heard. Pulmonary: Effort: Pulmonary effort is normal. No respiratory distress. Breath sounds: Normal breath sounds. No decreased breath sounds. Chest: Chest wall: No deformity or tenderness. Abdominal: Palpations: Abdomen is soft. Tenderness: There is no abdominal tenderness. Musculoskeletal: General: No swelling. Cervical back: Normal range of motion and neck supple. Right lower leg: No tenderness. Left lower leg: No tenderness. Skin: General: Skin is warm and dry. Capillary Refill: Capillary refill takes less than 2 seconds. Neurological: Mental Status: She is alert and oriented to person, place, and time. GCS: GCS eye subscore is 4. GCS verbal subscore is 5. GCS motor subscore is 6. Cranial Nerves: Cranial nerves 2-12 are intact. Sensory: Sensation is intact. Motor: No weakness. Psychiatric: Mood and Affect: Mood normal. DIAGNOSTIC RESULTS RADIOLOGY (Per Emergency Physician): Interpretation per the Radiologist below, if available at the time of this note: Vascular US lower extremity venous duplex bilateral Final Result LABS: Labs Reviewed TROPONIN, WITH SERIAL REFLEX - Normal Result Value TROPONIN I <0.012 Narrative: Patients with high levels of Biotin oral intake (ie >5 mg/day) may have falsely decreased Troponin levels. NT PRO BNP - Normal NT PRO BNP 51 TROPONIN, WITH SERIAL REFLEX - Normal TROPONIN I <0.012 Narrative: Patients with high levels of Biotin oral intake (ie >5 mg/day) may have falsely decreased Troponin levels. TROPONIN I TROPONIN I All other labs were within normal range or not returned as of this dictation. EMERGENCY DEPARTMENT COURSE and DIFFERENTIAL DIAGNOSIS/MDM: Vitals: Vitals: 05/01/23 1456 05/01/23 1657 BP: 134/76 130/58 Pulse: 74 68 Resp: 16 16 Temp: 36.4 C (97.5 F) TempSrc: Temporal SpO2: 96% 98% The patient presented with a chief complaint of evaluation for pulmonary embolism as seen on CT scan this morning ordered by PCP. This comes in the setting of several months of cough and shortness ofbreath, patient not on any anticoagulation currently. The differential diagnosis associated with this patient's presentation includes pulmonary embolism versus massive pulmonary embolism. Our workup consisted of ordering/reviewing troponin, EKG, and proBNP to check for signs of right heart strain. Venous duplex of the bilateral lower extremities was performed as well. Pulmonary embolism response team was consulted. ED Course as of 05/01/231809May 01, 2023 1506 CTA of the chest performed today showed Filling defects compatible with pulmonary emboli are present in the lobar pulmonary artery branches to the upper lobes in segmental and subsegmental branches to the bilateral upper and bilateral lower lobes. Dilated main pulmonary artery to 4.3 cm [PO] 1542 Secure chat to pulmonary embolism response team [PO] 1703 Per pulmonary embolism response team plan will be to start Eliquis on patient at 10 mg twice daily, we will admit to the general medical floor secondary to patient's HESTIA score. Interventionalcardiology was consulted. TTE, venous duplex, and remainder of PERT team orders will be placed. [PO] 1706 On patient reevaluation blood pressure was 130/58 with a heart rate of 68. There is saturatingat 98% on room air with respiratory rate of 16. Patient remained afebrile. Alert and oriented and answering all questions. [PO] 1730 Venous duplex of legs show an acute right posterior tibial DVT. Left leg is ok [PO] 1739 TROPONIN I: <0.012 [PO] 1740 NT PRO BNP: 51 [PO] 1753 Patient started on first dose of Eliquis. Plan to admit to hospital was discussed with the patient as well as results of all evaluations, patient expressed understanding and verbalized agreementwith the plan. Patient will be admitted to the general medical floor in stable condition for further treatment and evaluation of pulmonary embolism with final disposition per primary team. [PO] ED Course User Index [PO] Tomas Reaves MD Diagnoses as of 05/01/231809 PE (pulmonary thromboembolism) (HCC) Acute deep vein thrombosis (DVT) of popliteal vein of right lower extremity (HCC) Shortness of breath External records reviewed: Outpatient notes prior emergency department visit in January 2023 which showed a negative chest x-ray, however, patient did not stay for further evaluation. Also showed multiple PCP visits for cough, steroids and antibiotics given at first visit, CTA of the chest ordered at visit today which showed a pulmonary embolism as described above. Diagnostics interpreted by me: EKG(s) that showed no signs of right heart strain at this time, no signs of ischemia or infarct as interpreted by me. CT scan(s) showed filling defects compatible with pulmonary embolism in the lobar pulmonary artery branches in the upper lobes and sailed segmental and segmental branches with a dilated pulmonary artery. Ultrasound(s) of the bilateral lower extremities which showed an acute right posterior tibial DVT. Discussions with other clinicians: [employer] pulmonary embolism response team who also spoke with interventional cardiology. ED Medications managed: Medications apixaban (Eliquis) tablet 10 mg (10 mg Oral Given 05/01/231705) Prescription drugs considered: Anticoagulation with apixaban 10 mg twice daily x 7 days PROCEDURES: Unless otherwise noted below, none Procedures FINAL IMPRESSION 1. Single subsegmental pulmonary embolism without acute cor pulmonale (HCC) 2. PE (pulmonary thromboembolism) (HCC) 3. Acute deep vein thrombosis (DVT) of popliteal vein of right lower extremity (HCC) 4. Shortness of breath DISPOSITION Admit 05/01/2023 06:09:04 PM PATIENT REFERRED TO: No follow-up provider specified. DISCHARGE MEDICATIONS: New Prescriptions No medications on file (Comment: Please note this report has been produced using speech recognition software and may contain errors related to that system including errors in grammar, punctuation, and spelling, as well as words and phrases that may be inappropriate. If there are any questions or concerns please feel freeto contact the dictating provider for clarification.) Tomas Reaves MD (electronically signed) Emergency Medicine Provider Tomas Reaves MD Resident 05/01/231809 [id number] Note* Addendum Note - Debi Mcpherson - 05/01/2023 8:57 AM EDTAddended by: DEBI MCPHERSON on: 05/01/2023 08:57 AM Modules accepted: Orders [id number] Note* Addendum Note - Debi Mcpherson - 05/01/2023 8:57 AM EDTAddended by: DEBI MCPHERSON on: 05/01/2023 08:57 AM Modules accepted: Orders [place] [id number] Note* Addendum Note - Debi Wellse - 05/01/2023 8:57 AM EDTAddended by: DEBI MCPHERSON on: 05/01/2023 08:57 AM Modules accepted: Orders [place] [id number] Note* Addendum Note - Debi Mcpherson - 05/01/2023 8:57 AM EDTAddended by: DEBI MCPHERSON on: 05/01/2023 08:57 AM Modules accepted: Orders [id number] Note* Addendum Note - Debi Mcpherson - 05/01/2023 8:57 AM EDTAddended by: DEBI MCPHERSON on: 05/01/2023 08:57 AM Modules accepted: Orders [facility] [id number] Miscellaneous Notes* Addendum Note - Debi Mcpherson - 05/01/2023 8:57 AM EDTAddended by: DEBI MCPHERSON on: 05/01/2023 08:57 AM Modules accepted: Orders * Addendum Note - Alpesh Marroquin DO - 05/01/2023 8:45 AM EDTAddended by: ALPESH MARROQUIN on: 05/01/2023 08:45 AM Modules accepted: Orders * Addendum Note - Debi Mcpherson - 05/01/2023 8:37 AM EDTAddended by: DEBI MCPHERSON on: 05/01/2023 08:37 AM Modules accepted: Orders * Telephone Encounter - Debi Mcpherson - 05/01/2023 8:36 AM EDT Updated orders pended for signature * Telephone Encounter - Debi Mcpherson - 05/01/2023 8:09 AM EDT Orders pended for dx and doctor's signature documented in this encounterSumma [id number] Note* Addendum Note - Alpesh Wang DO Lopez - 05/01/2023 8:45 AM EDTAddended by: ALPESH MARROQUIN on: 05/01/2023 08:45 AM Modules accepted: Orders [id number] Note* Addendum Note - Alpesh Wang DO [place] - 05/01/2023 8:45 AM EDTAddended by: ALPESH MARROQUIN on: 05/01/2023 08:45 AM Modules accepted: Orders [id number] Note* Addendum Note - Alpesh Wang DO Lopez - 05/01/2023 8:45 AM EDTAddended by: ALPESH MARROQUIN on: 05/01/2023 08:45 AM Modules accepted: Orders [id number] Note* Addendum Note - Alpesh Kathleen DO Lopez - 05/01/2023 8:45 AM EDTAddended by: ALPESH MARROQUIN on: 05/01/2023 08:45 AM Modules accepted: Orders [id number] Note* Addendum Note - Aplesh Marroquin DO - 05/01/2023 8:45 AM EDTAddended by: ALPESH MARROQUIN on: 05/01/2023 08:45 AM Modules accepted: Orders [id number] Note* Addendum Note - Debi Mcpherson - 05/01/2023 8:37 AM EDTAddended by: DEBI MCPHERSON on: 05/01/2023 08:37 AM Modules accepted: Orders [id number] Note* Addendum Note - Debi Mcpherson - 05/01/2023 8:37 AM EDTAddended by: DEBI MCPHERSON on: 05/01/2023 08:37 AM Modules accepted: Orders [id number] Note* Addendum Note - Debi Mcpherson - 05/01/2023 8:37 AM EDTAddended by: DEBI MCPHERSON on: 05/01/2023 08:37 AM Modules accepted: Orders [id number] Note* Addendum Note - Debi Mcpherson - 05/01/2023 8:37 AM EDTAddended by: DEBI MCPHERSON on: 05/01/2023 08:37 AM Modules accepted: Orders [id number] Note* Addendum Note - Debi Mcpherson - 05/01/2023 8:37 AM EDTAddended by: DEBI MCPHERSON on: 05/01/2023 08:37 AM Modules accepted: Orders [place] [id number] Telephone encounter Note* Telephone Encounter - Debi Mcpherson - 05/01/2023 8:36 AM EDT Updated orders pended for signature [id number] Telephone encounter Note* Telephone Encounter - Debi Mcpherson - 05/01/2023 8:09 AM EDT Orders pended for dx and doctor's signature [id number] History of Present illness Narrative* Alpesh Marroquin DO - 05/01/2023 7:30 AM EDT Images from the original note were not included. [facility] [address] [place] [address] [address] [facility] [id number] Visit type: Established Patient Reason for Visit: Fatigue (Increased ) Assessment / Plan: Cata was seen today for fatigue. Diagnoses and all orders for this visit: ADAMSON (dyspnea on exertion) (Primary) Comments: New onset, need to exclude pulmonary emboli. Stat lab and CT chest- patient not acutely ill and will send to outpatient xray and lab Orders: - ECG 12 lead; Future - ECG 12 lead - Basic metabolic panel; Future - CBC auto differential; Future - NT PRO BNP; Future - Basic metabolic panel - CBC auto differential - NT PRO BNP Diabetes due to undrl condition w oth diabetic neuro comp (HCC) Essential hypertension Subjective: Patient ID: Cata Ayers is a 73 y.o. female. HPI well-controlled hypertensive type II diabetic non-smoker presents with weeks of worsening shortness of breath. Tired with activity. Home pulse oximeter showing O2 saturation in the high 80s and low 90s. Denies exertional chest pain jaw pain or back pain. No diaphoresis. Resolved cough after prednisone from a few weeks ago. Had a URI in January with negative chest x-ray. EKG was normal. No elevated glucose levels. No fever or purulent rhinorrhea or productive cough. No nausea vomitingor diarrhea. Review of Systems denies leg pain or leg swelling. Generally pretty active. Feels just short of breath with activity and tired. No confusion headache or photophobia. No dysuria hematuria. No history of DVT or PE. Has not really been sedentary. Allergies Allergen Reactions Kiwi Extract Swelling Mouth and lip swelling Other reaction(s): Swelling Lisinopril Other reaction(s): Other (See Comments) cough Other reaction(s): Other Other Current Outpatient Medications on File Prior to Visit Medication Sig Dispense Refill amLODIPine (Norvasc) 5 MG tablet Take 1 tablet (5 mg) by mouth daily. 90 tablet 1 atorvastatin (Lipitor) 10 MG tablet Take 1 tablet (10 mg) by mouth daily. 90 tablet 1 cholestyramine (Questran) 4 g packet Take 1 packet (4 g) by mouth daily. 90 packet 1 Continuous Blood Gluc Auto Body Technician (FreeStyle Javad 2 Bisbee) device TEST GLUCOSE 4 TIMES DAILY BEFORE MEALS AND AT BEDTIME Continuous Glucose Monitor Sup kit Test glucose 4 times daily before meals and at bedtime 1 kit 0 Continuous Glucose Monitor Sup misc Test 4 times daily before meals and at bedtime 2 Device 11 cyanocobalamin (Vitamin B-12) 500 MCG tablet Take 1 tablet (500 mcg) by mouth daily. 90 tablet 1 dicyclomine (Bentyl) 10 MG capsule Take 1 capsule (10 mg) by mouth 2 times daily for 180 doses. 90 capsule 1 glimepiride (Amaryl) 4 MG tablet Take 1 tablet (4 mg) by mouth 2 times daily. 180 tablet 1 ibuprofen 200 MG tablet Take 200 mg by mouth. losartan-hydroCHLOROthiazide (Hyzaar) 100-12.5 MG tablet Take 1 tablet by mouth daily. 90 tablet 1 metFORMIN (Glucophage) 500 MG tablet Take 2 tablets (1,000 mg) by mouth 2 times daily. 360 tablet 1 omeprazole (PriLOSEC) [address] capsule Take 1 capsule (20 mg) by mouth daily. 90 capsule 1 [DISCONTINUED] predniSONE (Deltasone) 10 MG tablet 4 qday for 3 days, then 2 q day for 3 days, thenone q day till gone (Patient not taking: Reported on 05/01/2023) 21 tablet 0 No current facility-administered medications on file prior to visit. Patient Active Problem List Diagnosis History of renal stone Renal cyst Essential hypertension Cystoid macular edema Post-cholecystectomy syndrome B12 deficiency SMILEY-inhibitor cough GERD with esophagitis Cholelithiasis Lumbar disc disease Type 2 diabetes mellitus (HCC) AVM (arteriovenous malformation) of colon Adrenal adenoma, left Diabetes due to undrl condition w oth diabetic neuro comp (HCC) Social History Tobacco Use Smoking status: Never Smokeless tobacco: Never Substance Use Topics Alcohol use: No Past Surgical History: Procedure Laterality Date CATARACT EXTRACTION Bilateral 2013 [place] COLONOSCOPY 06/2018 Dr Frost- few polyps- due 2023 COLONOSCOPY 2012 [place] COLONOSCOPY 06/2022 2 ileal AVMs treated per Dr Underwood- no f/u Cscope indicated DILATION AND CURETTAGE OF UTERUS EGD (HISTORICAL) 06/2022 Dr. Underwood- Hiatal hernia w/ duodenitis LAP,CHOLECYSTECTOMY (HISTORICAL) 2017 Schleuter LITHOTRIPSY 2006 MENISCECTOMY Right 1980 PARTIAL HYSTERECTOMY 1981 DUB- ovaries remaining UPPER GASTROINTESTINAL ENDOSCOPY 2012 neg per Gopi Family History Problem Relation Name Age of Onset Rheum arthritis Mother mid 50s Prostate cancer Father age 76 Diabetes Sister Maria A insulin, CHF Diabetes Sister oral rx Other ([id number]) Brother Saul MVA 40 Prostate cancer Brother Wyatt No Known Problems Brother Other ([id number]) Brother Tracey PAD, smoker- ischemic bowel w/ resection Heart failure Brother Estecayden Diabetes Brother Tracey insulin, age 74 in 04/08 Diabetes Maternal Grandmother Diabetes Maternal Grandfather Diabetes Paternal Grandmother Diabetes Paternal Grandfather Objective: BP 138/72 (BP Location: Left arm, Patient Position: Sitting, BP Cuff Size: Large adult) Pulse 91 Temp 36.3 C (97.3 F) (Temporal) Ht 5' 3.5 (1.613 m) Wt 181 lb (82.1 kg) SpO2 95% BMI 31.56 kg/m Physical Exam Pleasant cooperative. Vital signs are stable today. Not pale. Not air hungry. [place] on room air. Normal oropharynx. No JVD. Heart is regular without ectopy or new murmurs. Lungs are clear. No rales wheezes or egophony. Abdomen soft nontender good bowel sounds without pain hepatosplenomegaly or masses. Extremities are pink without edema or pain. No pallor cyanosis or clubbing. EKG sinus rhythm without ischemia. documented in this [facility]03-15-2024 Miscellaneous Notes* Addendum Note - Yancy Herndon - 05/01/2023 7:30 AM EDTAddended by: YANCY HERNDON on: 05/01/2023 08:34 AM Modules accepted: Orders documented in this [facility]03-15-2024 Note* Addendum Note - Yancy Herndon - 05/01/2023 7:30 AM EDTAddended by: YANCY HERNDON on: 05/01/2023 08:34 AM Modules accepted: Orders [facility] [id number] Note* Addendum Note - Yancy Herndon - 05/01/2023 7:30 AM EDTAddended by: YANCY HERNDON on: 05/01/2023 08:34 AM Modules accepted: [id number] Telephone encounter Note* Telephone Encounter - Aria Medina LPN - 04/08/2023 9:54 AM EST Rx loaded Please resend RX as the pharmacy did not receive it. [id number] Miscellaneous Notes* Telephone Encounter - Aria Medina LPN - 04/08/2023 9:54 AM EST Rx loaded Please resend RX as the pharmacy did not receive it. * Telephone Encounter - Tevin Alexandre - 04/08/2023 9:11 AM EST Name of caller: Cata Contact phone number: [phone] Relationship to Patient: patient Provider: [place] Practice: [facility] Chief Complaint/Reason for Call: Dr Marroquin wrote a prescription for predniSONE (Deltasone) 10 MG tablet , but it was not sent to the pharmacy. Please send script to [facility] on [address] [place] [address]. . Please advise. Best time of day caller can be reached: any Patient advised that office/PCP has 24-48 business hours to return their call: No documented in this encounterSSelect Medical [facility], [id number] Telephone encounter Note* Telephone Encounter - Tevin Alexandre - 04/08/2023 9:11 AM EST Name of caller: Cata Contact phone number: [phone] Relationship to Patient: patient Provider: Lopez Practice: [facility] Chief Complaint/Reason for Call: Dr Marroquin wrote a prescription for predniSONE (Deltasone) 10 MG tablet , but it was not sent to the pharmacy. Please send script to [facility] on [address] [place] [address]. . Please advise. Best time of day caller can be reached: any Patient advised that office/PCP has 24-48 business hours to return their call: No [id number] History of Present illness Narrative* Alpesh Marroquin, DO - 04/07/2023 2:00 PM EST Images from the original note were not included. [facility] [address] [facility] [phone] Visit type: Established Patient Reason for Visit: Follow-up (6 month med check) and Cough (Coughing since ) Assessment / Plan: Cata was seen today for follow-up and cough. Diagnoses and all orders for this visit: Type 2 diabetes mellitus without complication, without long-term current use of insulin ([facility]/HCC) (HCC) (Primary) Comments: Stable, continue metformin, glimepiride Orders: - CBC auto differential; Future - Comprehensive metabolic panel; Future - Hemoglobin A1c; Future - CBC auto differential - Comprehensive metabolic panel - Hemoglobin A1c Essential hypertension Comments: Stable, continue amlodipine and losartan HCT Other iron deficiency anemia Post-cholecystectomy syndrome Comments: Stable, continue Questran and avoidance measures Simple chronic bronchitis (HCC) Comments: Recurrent, doxycycline and prednisone burst. Will need chest x-ray read CT of the chest if no resolution in 2 weeks Iron deficiency anemia, unspecified iron deficiency anemia type Comments: probably recurrent, check lab possible follow-up with hematology Orders: - Ferritin; Future - Iron and TIBC; Future - Ferritin - Iron and TIBC Other orders - amLODIPine (Norvasc) 5 MG tablet; Take 1 tablet (5 mg) by mouth daily. - atorvastatin (Lipitor) 10 MG tablet; Take 1 tablet (10 mg) by mouth daily. - cholestyramine (Questran) 4 g packet; Take 1 packet (4 g) by mouth daily. - dicyclomine (Bentyl) 10 MG capsule; Take 1 capsule (10 mg) by mouth 2 times daily for 180 doses. - glimepiride (Amaryl) 4 MG tablet; Take 1 tablet (4 mg) by mouth 2 times daily. - losartan-hydroCHLOROthiazide (Hyzaar) 100-12.5 MG tablet; Take 1 tablet by mouth daily. - metFORMIN (Glucophage) 500 MG tablet; Take 2 tablets (1,000 mg) by mouth 2 times daily. - omeprazole (PriLOSEC) [address] capsule; Take 1 capsule (20 mg) by mouth daily. - doxycycline (Vibramycin) 100 MG capsule; Take 1 capsule (100 mg) by mouth 2 times daily for 10 days. Take with at least 8 ounces (large glass) of water, do not lie down for 30 minutes after - predniSONE (Deltasone) 10 MG tablet; 4 qday for 3 days, then 2 q day for 3 days, then one q day till gone Subjective: Patient ID: Cata Ayers is a 73 y.o. female. HPI type II diabetic with history of hypertension, hyperlipidemia and chronic postcholecystectomy syndrome and mild iron deficiency anemia presents for checkup. Weight is stable. Glucose levels are well. Only concern is ongoing 2 months of a cough. ER visit the day after [place] showed a normal chest x-ray. Does not feel particularly ill just a chronic cough. No phlegm fever shortness of breathor chest pain. No night sweats fevers or chills. She is a non-smoker Review of Systems stopped iron due to GI issues. History of chronic iron deficiency anemia. No change in vision skin or feet. Denies exertional chest pain jaw pain or arm pain. No PND orthopnea claudication or edema. No abdominal pain. Bowels are pretty formed. No mucus or blood. No dysuria or hematuria. No change in mild low back pain. Rare sciatica. Allergies Allergen Reactions Kiwi Extract Swelling Mouth and lip swelling Other reaction(s): Swelling Lisinopril Other reaction(s): Other (See Comments) cough Other reaction(s): Other Other Current Outpatient Medications on File Prior to Visit Medication Sig Dispense Refill Continuous Blood Gluc Auto Body Technician (Curiosidy Javad 2 Bisbee) device TEST GLUCOSE 4 TIMES DAILY BEFORE MEALS AND AT BEDTIME Continuous Glucose Monitor Sup kit Test glucose 4 times daily before meals and at bedtime 1 kit 0 Continuous Glucose Monitor Sup misc Test 4 times daily before meals and at bedtime 2 Device 11 cyanocobalamin (Vitamin B-12) 500 MCG tablet Take 1 tablet (500 mcg) by mouth daily. 90 tablet 1 ibuprofen 200 MG tablet Take 200 mg by mouth. [DISCONTINUED] amLODIPine (Norvasc) 5 MG tablet TAKE 1 TABLET BY MOUTH EVERY DAY 90 tablet 1 [DISCONTINUED] atorvastatin (Lipitor) 10 MG tablet TAKE 1 TABLET (10 MG) BY MOUTH DAILY. 90 tablet 1 [DISCONTINUED] cholestyramine (Questran) 4 g packet MIX AND TAKE 1 PACKET BY MOUTH 2 TIMES DAILY. (Patient taking differently: Take 1 packet by mouth daily.) 60 packet 5 [DISCONTINUED] dicyclomine (Bentyl) 10 MG capsule TAKE 1 CAPSULE (10 MG) BY MOUTH 2 TIMES DAILY. 180 capsule 1 [DISCONTINUED] glimepiride (Amaryl) 4 MG tablet Take 1 tablet (4 mg) by mouth 2 times daily. 180 tablet 1 [DISCONTINUED] losartan-hydroCHLOROthiazide (Hyzaar) 100-12.5 MG tablet TAKE 1 TABLET BY MOUTH EVERY DAY 90 tablet 1 [DISCONTINUED] metFORMIN (Glucophage) 500 MG tablet TAKE 2 TABLETS BY MOUTH 2 TIMES DAILY 360 tablet 1 [DISCONTINUED] omeprazole (PriLOSEC) [address] capsule TAKE 1 CAPSULE BY MOUTH EVERY DAY 90 capsule 1 [DISCONTINUED] Ascorbic Acid (vitamin C) 1000 MG tablet Take 1,000 mg by mouth daily. [DISCONTINUED] ferrous sulfate 325 (65 Fe) MG tablet Take 325 mg by mouth daily (with breakfast). [DISCONTINUED] metFORMIN (Glucophage) 500 MG tablet Take 2 tablets (1,000 mg) by mouth 2 times daily. 360 tablet 1 No current facility-administered medications on file prior to visit. Patient Active Problem List Diagnosis History of renal stone Renal cyst Essential hypertension Cystoid macular edema Post-cholecystectomy syndrome B12 deficiency SMILEY-inhibitor cough GERD with esophagitis Cholelithiasis Lumbar disc disease Type 2 diabetes mellitus (HCC) AVM (arteriovenous malformation) of colon Adrenal adenoma, left Social History Tobacco Use Smoking status: Never Smokeless tobacco: Never Substance Use Topics Alcohol use: No Past Surgical History: Procedure Laterality Date CATARACT EXTRACTION Bilateral 2013 [facility] COLONOSCOPY 06/2018 Dr Frost- few polyps- due 2023 COLONOSCOPY 2012 [facility] COLONOSCOPY 06/2022 2 ileal AVMs treated per Dr Underwood- no f/u Cscope indicated DILATION AND CURETTAGE OF UTERUS EGD (HISTORICAL) 06/2022 Dr. Underwood- Hiatal hernia w/ duodenitis HYSTERECTOMY 1981 DUB- simple hyst LAP,CHOLECYSTECTOMY (HISTORICAL) 2017 Schleuter LITHOTRIPSY 2006 MENISCECTOMY Right 1980 UPPER GASTROINTESTINAL ENDOSCOPY 2012 neg per [facility] Family History Problem Relation Name Age of Onset Rheum arthritis Mother mid 50s Prostate cancer Father age 76 Diabetes Sister Maria A insulin, CHF Diabetes Sister oral rx Other ([id number]) Brother Saul MVA 40 Prostate cancer Brother Wyatt No Known Problems Brother Other ([id number]) Brother Estecayden PAD, smoker- ischemic bowel w/ resection Heart failure Brother Estel Diabetes Brother Estecayden insulin, age 74 in 04/08 Diabetes Maternal Grandmother Diabetes Maternal Grandfather Diabetes Paternal Grandmother Diabetes Paternal Grandfather Objective: BP 110/60 Pulse 76 Temp 36.3 C (97.3 F) (Temporal) Ht 5' 3 (1.6 m) Wt 183 lb (83 kg) SpO2 98% BMI 32.42 kg/m Physical Exam Very pleasant alert and engaging. Normal oropharynx and eardrums. No neck masses JVD adenopathy thyroid lesions or carotid bruits. Heart is regular without gallops or murmurs. Lungs are diminished inthe bases but without rales wheezes or egophony. Abdomen obese nontender good bowel sounds without pain hepatosplenomegaly masses bruits or ascites. Femoral pedal pulses are good. No skin breakdowns.No appreciable leg edema. There is no motor loss of the feet. documented in this [facility]02-20-2024 Instructions* Patient Instructions* Alpesh Marroquin DO - 04/07/2023 2:00 PM EST Call for repeat Chest xray if no resolution of cough in 2 wks documented in this [facility]12-26-2023 Hospital Discharge instructions* Discharge Instructions* Homar Alston MD - 02/10/2023 5:23 PM EST You were seen in the Emergency Department for cold symptoms. Your workup here showed that you have a viral upper respiratory infection (a cold). You should drink plenty of fluids and get lots of rest. Take Tylenol (1000 mg every 8 hours) as needed for pain and Motrin (400 mg every 8 hours) as needed for pain. Please call or make an appointment with your primary care doctor if your symptoms do not improve. Return to the Emergency Department if you have: - Difficulty breathing - Severe pain - High fever (102F) despite taking Tylenol and Motrin - Any other symptoms that concern you Please sign up for MyChart and review all results from your visit today. [facility] with any questions or concerns about your results today. Thank you for choosing [facility] for your care. Sincerely, Homar Alston MD documented in this [facility], [id number] Emergency department Note* Sindy Overton - 02/10/2023 4:36 PM EST Pt refused IV/bloodwork Informed MD Sindy Overton 02/10/23 1637 [id number] Emergency department Note* Sindy Overton - 02/10/2023 4:36 PM EST Pt refused IV/bloodwork Informed MD Sindy Overton 02/10/23 1637 * Homar Alston MD - 02/10/2023 3:57 PM EST [facility] ED EMERGENCY DEPARTMENT ENCOUNTER Pt Name: Cata Ayers Birthdate 1950 Date of evaluation: 02/10/2023 Provider: Homar Alston MD CHIEF COMPLAINT Chief Complaint Patient presents with Cough HISTORY OF PRESENT ILLNESS I wore proper PPE for the entirety of this encounter. Cata Ayers is a 72 y.o. female who presents to the emergency department with cold symptoms including productive cough, chills, fatigue and also with shortness of breath and chest pain since Thursday. Hx DM. Nursing Notes were reviewed. 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 Asaf donald f/u Cscope indicated B12 deficiency 02/21/2021 Breast cancer screening 09/2020 prefers every other year. Chronic diarrhea 2022 n/s colitis per Cscope Cystoid macular edema 2018 Schartman, Optho Elbow fracture, left 195 Essential hypertension 2011 GERD with esophagitis 2012 EGD 07/[address] Underwood- HH w/ duodenitis H/O colonoscopy 06/2022 Dr Underwood- ileal AVMs cauterized- no need for rech History of renal stone 2005 Left rotator cuff tear 2012 Lumbar disc disease 2005 MRI- right sciatica Post-cholecystectomy syndrome 2020 Renal cyst [address] 04/10 Type 2 diabetes mellitus (HCC) 2007 off rx for a few years, restarted 11/02 -[facility] SURGICAL HISTORY Past Surgical History: Procedure Laterality Date CATARACT EXTRACTION Bilateral 2013 [facility] COLONOSCOPY 06/2018 Dr Frost- few polyps- due 2023 COLONOSCOPY 2012 [facility] COLONOSCOPY 06/2022 2 ileal AVMs treated per Dr Asaf donald f/u Cscope indicated DILATION AND CURETTAGE OF UTERUS EGD (HISTORICAL) 06/2022 Dr. Underwood- Hiatal hernia w/ duodenitis HYSTERECTOMY 1982 DUB- simple hyst LAP,CHOLECYSTECTOMY (HISTORICAL) 2017 Schleuter LITHOTRIPSY 2006 MENISCECTOMY Right 1979 UPPER GASTROINTESTINAL ENDOSCOPY 2012 neg per [facility]op[facility] CURRENT MEDICATIONS Discharge Medication List as of 02/10/2023 5:23 PM CONTINUE these medications which have NOT CHANGED Details amLODIPine (Norvasc) 5 MG tablet Take 1 tablet (5 mg) by mouth daily., Starting Thu09/03/2022, Normal Ascorbic Acid (vitamin C) 1000 MG tablet Take 1,000 mg by mouth daily., Historical Med atorvastatin (Lipitor) 10 MG tablet Take 1 tablet (10 mg) by mouth daily., Starting Thu09/03/2022, Normal cholestyramine (Questran) 4 g packet MIX AND TAKE 1 PACKET BY MOUTH 2 TIMES DAILY., Normal Continuous Blood Gluc Auto Body Technician (FreeStyle Javad 2 Bisbee) device TEST GLUCOSE 4 TIMES DAILY BEFORE MEALS AND AT BEDTIME, Historical Med Continuous Glucose Monitor Sup kit Test glucose 4 times daily before meals and at bedtime, Normal Continuous Glucose Monitor Sup misc Test 4 times daily before meals and at bedtime, Normal cyanocobalamin (Vitamin B-12) 500 MCG tablet Take 1 tablet (500 mcg) by mouth daily., Starting Thu03/06/2022, Normal dicyclomine (Bentyl) 10 MG capsule Take 1 capsule (10 mg) by mouth 2 times daily., Starting Thu09/03/2022, Normal ferrous sulfate 325 (65 Fe) MG tablet Take 325 mg by mouth daily (with breakfast)., Historical Med glimepiride (Amaryl) 4 MG tablet Take 1 tablet (4 mg) by mouth 2 times daily., Starting Thu09/03/2022, Normal ibuprofen 200 MG tablet Take 200 mg by mouth., Historical Med losartan-hydroCHLOROthiazide (Hyzaar) 100-12.5 MG tablet Take 1 tablet by mouth daily., Starting Thu09/03/2022, Normal metFORMIN (Glucophage) 500 MG tablet Take 2 tablets (1,000 mg) by mouth 2 times daily., Starting Thu09/03/2022, Normal omeprazole (PriLOSEC) [address] capsule Take 1 capsule (20 mg) by mouth daily., Starting Thu09/03/2022, Normal ALLERGIES Kiwi extract, Lisinopril, and Other FAMILY HISTORY Family History Problem Relation Name Age of Onset Rheum arthritis Mother mid 50s Prostate cancer Father age 76 Diabetes Sister Maria A insulin, CHF Diabetes Sister oral rx Other ([id number]) Brother Saul MVA 40 Prostate cancer Brother Wyatt No Known Problems Brother Other ([phone]) Brother Tracey PAD, smoker- ischemic bowel w/ resection Heart failure Brother Estel Diabetes Brother Tracey insulin, age 74 in 04/08 Diabetes Maternal Grandmother Diabetes Maternal Grandfather Diabetes Paternal Grandmother Diabetes Paternal Grandfather SOCIAL HISTORY Social History Socioeconomic History Marital status: Tobacco Use Smoking status: Never Smokeless tobacco: Never Substance and Sexual Activity Alcohol use: No Drug use: No Social History Narrative from Omi who in 02/06. 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 PERRLA, EOMI ENT: Mucous membranes moist. Normal oropharynx CV: RRR RESP: CTAB, good respiratory effort, no increased wob GI: Abdomen soft, non-tender, non-distended, +BS, no guarding or rebound tenderness MSK: Normal bulk and tone, no gross deformity EXTR: Warm and well perfused, no edema SKIN: No rash/bruising/erythema PSYCH: Appropriate affect, cooperative behavior NEURO: Alert and oriented x 3, face symmetric, no slurred speech DIAGNOSTIC RESULTS Interpretation per the Radiologist below, if available at the time of this note: XR chest 1 view Final Result No radiographic acute cardiopulmonary process. Report Dictated on Electronically Signed By: Nika Riley MD Electronically Signed Date/Time: 02/10/2023 4:54 PM EST LABS: Labs Reviewed SARS-COV-2, FLU A/B, AND RSV COMBO - Normal Result Value SARS-CoV-2 Not Detected Respiratory Syncytial Virus Not Detected Influenza A Not Detected Influenza B Not Detected Narrative: Methodology: real-time, RT-PCR The SARS-CoV-2, Flu A/B, and RSV Combo assay is intended for in vitro diagnostic use under the FDA Emergency Use Authorization (EUA). This test has not been FDA cleared or approved. In compliance with this authorization, please visit www.fda.gov/media/925016/download or www.fda.gov/media/058182/download to access the applicable information sheets. GROUP A STREP SCREEN BY PCR BASIC METABOLIC PANEL CBC WITH AUTO DIFFERENTIAL TROPONIN, WITH SERIAL REFLEX MAGNESIUM EMERGENCY DEPARTMENT COURSE and DIFFERENTIAL DIAGNOSIS/MDM: Vitals: Vitals: 02/10/23 1623 02/10/23 1737 BP: (!) 152/62 136/84 BP Location: Right arm Patient Position: Lying Pulse: 81 86 Resp: 16 14 Temp: 36.9 C (98.5 F) TempSrc: Oral SpO2: 96% 98% Weight: 83.9 kg (185 lb) Medications acetaminophen (Tylenol) tablet 1,000 mg (1,000 mg Oral Given 02/10/231700) benzonatate (Tessalon) capsule 100 mg (100 mg Oral Given 02/10/231700) I personally saw the patient and performed a substantive portion of the visit including all aspectsof the medical decision making. Patient appears nontoxic and vital signs are normal except for mildly elevated blood pressure. EKG without concerning ischemic or arrhythmic changes. Chest x- ray as below is normal. Patient refused IV and lab draw. I discussed with her why I wanted to get these tests and how without them I could not be sure of the diagnosis. Patient continued to refuse. Her COVID/influenza/RSV swab was negative. Patient's symptoms are likely secondary to viral URI. I discharged her home. I discussed test results and plan with the patient. ED Course as of 02/10/231737Feb 10, 2023 1656 XR chest 1 view No effusions, opacities, pneumothorax, pneumonia, heart failure with volume overload/pulmonary edema, displaced rib fracture, or large masses on my interpretation. No acute abnormalities on radiologist's final interpretation. [AMA] ED Course User Index [AMA] Homar Alston MD Diagnoses as of 02/10/231737 Viral URI PROCEDURES: Unless otherwise noted below, none Procedures Patients symptoms are consistent with sepsis, severe sepsis, or septic shock (If yes use .sepsiscoremeasure): no FINAL IMPRESSION 1. Viral URI DISPOSITION/PLAN Discharge 02/10/2023 05:23:03 PM PATIENT REFERRED TO: Alpesh Marroquin DO [address] [facility] [facility] [address] [facility] [address] Schedule an appointment as soon as possible for a visit DISCHARGE MEDICATIONS: Discharge Medication List as of 02/10/2023 5:23 PM START taking these medications Details benzonatate (Tessalon) 100 MG capsule Take 1 capsule (100 mg) by mouth in the morning and 1 capsule(100 mg) at noon and 1 capsule (100 mg) before bedtime. Do all this for 7 days. Do not crush or chew.., Starting e 02/10/2023, Until 02/17/2023, Normal (Please note: Portions of this note were completed with a voice recognition program. Efforts were made to edit the dictations but occasionally words and phrases are mis-transcribed.) Homar Alston MD [facility] Homar Alston MD 02/10/23 2098 * Harry Johnson RN - 02/10/2023 3:57 PM EST Pt ambulatory to room 14 with c/o cough, sore throat,chills, fatigue and chest pain with inspiration since Thursday. Pt states cough is occasionally productive . Pt reports recent exposure to viral illness. Pt is placed on lunchroom monitor, pulse ox. EKG obtained. * Harry Johnson RN - 02/10/2023 3:57 PM EST Pt expressing frustration of necessity of tests. Pt is informed of protocol pertaining to c/o chestpain as well as her rights of a patient to refuse any test/ procedure. Pt refusing blood draw and strep. Will consent to cxr and viral swab. Harry Johnson RN 02/10/23 1585 documented in this [facility]12-26-2023 Emergency department Note* Harry Johnson RN - 02/10/2023 3:57 PM EST Pt expressing frustration of necessity of tests. Pt is informed of protocol pertaining to c/o chestpain as well as her rights of a patient to refuse any test/ procedure. Pt refusing blood draw and strep. Will consent to cxr and viral swab. Harry Johnson RN 02/10/23 0174 [id number] Emergency department Triage note* Harry Johnson RN - 02/10/2023 3:57 PM EST Pt ambulatory to room 14 with c/o cough, sore throat,chills, fatigue and chest pain with inspiration since Thursday. Pt states cough is occasionally productive . Pt reports recent exposure to viral illness. Pt is placed on lunchroom monitor, pulse ox. EKG obtained. [facility] [id number] Physician Emergency department Note* Homar Alston MD - 02/10/2023 3:57 PM EST [facility] ED EMERGENCY DEPARTMENT ENCOUNTER Pt Name: Cata Ayers Birthdate 1950 Date of evaluation: 02/10/2023 Provider: Homar Alston MD CHIEF COMPLAINT Chief Complaint Patient presents with Cough HISTORY OF PRESENT ILLNESS I wore proper PPE for the entirety of this encounter. Cata Ayers is a 72 y.o. female who presents to the emergency department with cold symptoms including productive cough, chills, fatigue and also with shortness of breath and chest pain since Thursday. Hx DM. Nursing Notes were reviewed. 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 Underwood- no f/u Cscope indicated B12 deficiency 02/21/2021 Breast cancer screening 09/2020 prefers every other year. Chronic diarrhea 2022 n/s colitis per Cscope Cystoid macular edema 2019 Schartman, Optho Elbow fracture, left 1954 Essential hypertension 2011 GERD with esophagitis 2012 EGD 07/[address] Underwood- HH w/ duodenitis H/O colonoscopy 06/2022 Dr Underwood- ileal AVMs cauterized- no need for rech History of renal stone 2005 Left rotator cuff tear 2012 Lumbar disc disease 2005 MRI- right sciatica Post-cholecystectomy syndrome 2020 Renal cyst [address] 04/10 Type 2 diabetes mellitus (HCC) 2007 off rx for a few years, restarted 11/02 -[facility]/ [facility] SURGICAL HIST[facility] Past Surgical History: Procedure Laterality Date CATARACT EXTRACTION Bilateral 2014 [facility] COLONOSCOPY 06/2018 Dr Frost- few polyps- due 2023 COLONOSCOPY 2012 [facility] COLONOSCOPY 06/2022 2 ileal AVMs treated per Dr Underwood- no f/u Cscope indicated DILATION AND CURETTAGE OF UTERUS EGD (HISTORICAL) 06/2022 Dr. Underwood- Hiatal hernia w/ duodenitis HYSTERECTOMY 1981 DUB- simple hyst LAP,CHOLECYSTECTOMY (HISTORICAL) 2017 Schleuter LITHOTRIPSY 2006 MENISCECTOMY Right 1980 UPPER GASTROINTESTINAL ENDOSCOPY 2012 neg per Gopi CURRENT MEDICATIONS Discharge Medication List as of 02/10/2023 5:23 PM CONTINUE these medications which have NOT CHANGED Details amLODIPine (Norvasc) 5 MG tablet Take 1 tablet (5 mg) by mouth daily., Starting Thu09/03/2022, Normal Ascorbic Acid (vitamin C) 1000 MG tablet Take 1,000 mg by mouth daily., Historical Med atorvastatin (Lipitor) 10 MG tablet Take 1 tablet (10 mg) by mouth daily., Starting Thu09/03/2022, Normal cholestyramine (Questran) 4 g packet MIX AND TAKE 1 PACKET BY MOUTH 2 TIMES DAILY., Normal Continuous Blood Gluc Auto Body Technician (Aito BVStyle Jaavd 2 Bisbee) device TEST GLUCOSE 4 TIMES DAILY BEFORE MEALS AND AT BEDTIME, Historical Med Continuous Glucose Monitor Sup kit Test glucose 4 times daily before meals and at bedtime, Normal Continuous Glucose Monitor Sup misc Test 4 times daily before meals and at bedtime, Normal cyanocobalamin (Vitamin B-12) 500 MCG tablet Take 1 tablet (500 mcg) by mouth daily., Starting Rosalina 03/06/2022, Normal dicyclomine (Bentyl) 10 MG capsule Take 1 capsule (10 mg) by mouth 2 times daily., Starting Thu09/03/2022, Normal ferrous sulfate 325 (65 Fe) MG tablet Take 325 mg by mouth daily (with breakfast)., Historical Med glimepiride (Amaryl) 4 MG tablet Take 1 tablet (4 mg) by mouth 2 times daily., Starting Thu09/03/2022, Normal ibuprofen 200 MG tablet Take 200 mg by mouth., Historical Med losartan-hydroCHLOROthiazide (Hyzaar) 100-12.5 MG tablet Take 1 tablet by mouth daily., Starting Thu09/03/2022, Normal metFORMIN (Glucophage) 500 MG tablet Take 2 tablets (1,000 mg) by mouth 2 times daily., Starting Thu09/03/2022, Normal omeprazole (PriLOSEC) [address] capsule Take 1 capsule (20 mg) by mouth daily., Starting Thu09/03/2022, Normal ALLERGIES Kiwi extract, Lisinopril, and Other FAMILY HISTORY Family History Problem Relation Name Age of Onset Rheum arthritis Mother mid 50s Prostate cancer Father age 76 Diabetes Sister Maria A insulin, CHF Diabetes Sister oral rx Other ([id number]) Brother Saul MVA 40 Prostate cancer Brother Wyatt No Known Problems Brother Other ([id number]) Brother Tracey PAD, smoker- ischemic bowel w/ resection Heart failure Brother Tracey Diabetes Brother Tracey insulin, age 74 in 04/08 Diabetes Maternal Grandmother Diabetes Maternal Grandfather Diabetes Paternal Grandmother Diabetes Paternal Grandfather SOCIAL HISTORY Social History Socioeconomic History Marital status: Tobacco Use Smoking status: Never Smokeless tobacco: Never Substance and Sexual Activity Alcohol use: No Drug use: No Social History Narrative from Omi who in 02/06. 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 PERRLA, EOMI ENT: Mucous membranes moist. Normal oropharynx CV: RRR RESP: CTAB, good respiratory effort, no increased wob GI: Abdomen soft, non-tender, non-distended, +BS, no guarding or rebound tenderness MSK: Normal bulk and tone, no gross deformity EXTR: Warm and well perfused, no edema SKIN: No rash/bruising/erythema PSYCH: Appropriate affect, cooperative behavior NEURO: Alert and oriented x 3, face symmetric, no slurred speech DIAGNOSTIC RESULTS Interpretation per the Radiologist below, if available at the time of this note: XR chest 1 view Final Result No radiographic acute cardiopulmonary process. Report Dictated on Electronically Signed By: Nika Riley MD Electronically Signed Date/Time: 02/10/2023 4:54 PM EST LABS: Labs Reviewed SARS-COV-2, FLU A/B, AND RSV COMBO - Normal Result Value SARS-CoV-2 Not Detected Respiratory Syncytial Virus Not Detected Influenza A Not Detected Influenza B Not Detected Narrative: Methodology: real-time, RT-PCR The SARS-CoV-2, Flu A/B, and RSV Combo assay is intended for in vitro diagnostic use under the FDA Emergency Use Authorization (EUA). This test has not been FDA cleared or approved. In compliance with this authorization, please visit www.fda.gov/media/417139/download or www.fda.gov/media/372699/download to access the applicable information sheets. GROUP A STREP SCREEN BY PCR BASIC METABOLIC PANEL CBC WITH AUTO DIFFERENTIAL TROPONIN, WITH SERIAL REFLEX MAGNESIUM EMERGENCY DEPARTMENT COURSE and DIFFERENTIAL DIAGNOSIS/MDM: Vitals: Vitals: 02/10/23 1623 02/10/23 1737 BP: (!) 152/62 136/84 BP Location: Right arm Patient Position: Lying Pulse: 81 86 Resp: 16 14 Temp: 36.9 C (98.5 F) TempSrc: Oral SpO2: 96% 98% Weight: 83.9 kg (185 lb) Medications acetaminophen (Tylenol) tablet 1,000 mg (1,000 mg Oral Given 02/10/231700) benzonatate (Tessalon) capsule 100 mg (100 mg Oral Given 02/10/231700) I personally saw the patient and performed a substantive portion of the visit including all aspectsof the medical decision making. Patient appears nontoxic and vital signs are normal except for mildly elevated blood pressure. EKG without concerning ischemic or arrhythmic changes. Chest x- ray as below is normal. Patient refused IV and lab draw. I discussed with her why I wanted to get these tests and how without them I could not be sure of the diagnosis. Patient continued to refuse. Her COVID/influenza/RSV swab was negative. Patient's symptoms are likely secondary to viral URI. I discharged her home. I discussed test results and plan with the patient. ED Course as of 02/10/23 1738 Tue Feb 10, 2023 1656 XR chest 1 view No effusions, opacities, pneumothorax, pneumonia, heart failure with volume overload/pulmonary edema, displaced rib fracture, or large masses on my interpretation. No acute abnormalities on radiologist's final interpretation. [AMA] ED Course User Index [AMA] Homar Alston MD Diagnoses as of 02/10/231737 Viral URI PROCEDURES: Unless otherwise noted below, none Procedures Patients symptoms are consistent with sepsis, severe sepsis, or septic shock (If yes use .sepsiscoremeasure): no FINAL IMPRESSION 1. Viral URI DISPOSITION/PLAN Discharge 02/10/2023 05:23:03 PM PATIENT REFERRED TO: Alpesh Marroquin DO [address] [facility] [address] [facility] [address] Schedule an appointment as soon as possible for a visit DISCHARGE MEDICATIONS: Discharge Medication List as of 02/10/2023 5:23 PM START taking these medications Details benzonatate (Tessalon) 100 MG capsule Take 1 capsule (100 mg) by mouth in the morning and 1 capsule(100 mg) at noon and 1 capsule (100 mg) before bedtime. Do all this for 7 days. Do not crush or chew.., Starting 02/10/2023, Until 02/17/2023, Normal (Please note: Portions of this note were completed with a voice recognition program. Efforts were made to edit the dictations but occasionally words and phrases are mis-transcribed.) Homar Alston MD [facility] Homar Alston MD 02/10/231737 [id number] History of Present illness Narrative* Harry Serrano, - 01/13/2023 11:30 AM EST Hematology/Oncology Office Visit Consultation/Referral Reason: iron deficiency anemia Referred by: Dr. Marroquin HPI: Cata Ayers is a 72 y.o. female who comes in today for routine follow up for iron deficiency anemia. Recall, in Feb 2022, the patient had lab work performed that showed anemia. Her iron levels were low. She denied any GI bleeding. She was referred to GI and EGD and colonoscopy were performed in June 2022 in [place]: records indicate she had one bleeding AVM in the colon and two in the ileum which were cauterized. EGD showed a small hiatal hernia. CT a/p was negative for malignancy. She was started on ferrous sulfate one tablet a day in July 2022. Today, she is here for routine follow up. At her last visit in September 2022, we increased to ferroussulfate to 325mg PO BID which she has tolerated well. No upset stomach. No constipation. She has mild diarrhea at times. No blood in her stools or abdominal pain. Weight stable. Mild fatigue. No other concerns today. 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 Asaf donald f/u Cscope indicated B12 deficiency 02/21/2021 Breast cancer screening 09/2020 prefers every other year. Chronic diarrhea 2022 n/s colitis per Cscope Cystoid macular edema 2018 Schartman, Optho Elbow fracture, left 1953 Essential hypertension 2011 GERD with esophagitis 2012 EGD 07/[address] Underwood- HH w/ duodenitis H/O colonoscopy 06/2022 Dr Underwood- ileal AVMs cauterized- no need for rech History of renal stone 2006 Left rotator cuff tear 2012 Lumbar disc disease 2006 MRI- right sciatica Post-cholecystectomy syndrome 2020 Renal cyst [address] 04/10 Type 2 diabetes mellitus (HCC) 2007 off rx for a few years, restarted 11/02 -Mpn/ [facility] Past Surgical History: Procedure Laterality Date CATARACT EXTRACTION Bilateral 2013 [facility] COLONOSCOPY 06/2018 Dr Frost- few polyps- due 2023 COLONOSCOPY 2012 [facility] COLONOSCOPY 06/2022 2 ileal AVMs treated per Dr Asaf donald f/u Cscope indicated DILATION AND CURETTAGE OF UTERUS EGD (HISTORICAL) 06/2022 Dr. Underwood- Hiatal hernia w/ duodenitis HYSTERECTOMY 1982 DUB- simple hyst LAP,CHOLECYSTECTOMY (HISTORICAL) 2017 [facility] LITHOTRIPSY 2006 MENISCECTOMY Right 1980 UPPER GASTROINTESTINAL ENDOSCOPY 2012 neg per [facility] Patient Active Problem List Diagnosis Date Noted Adrenal adenoma, left 09/03/2022 AVM (arteriovenous malformation) of colon 06/2022 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/2021 B12 deficiency 02/21/2021 Essential hypertension 02/22/2020 Cystoid macular edema 06/20/2019 History of renal stone 12/20/2018 Renal cyst 12/20/2018 SMILEY-inhibitor cough 12/20/2018 GERD with esophagitis 10/22/2016 Cholelithiasis 10/22/2016 Lumbar disc disease 10/22/2016 Type 2 diabetes mellitus (HCC) 10/22/2016 Social History Tobacco Use Smoking status: Never Smokeless tobacco: Never Substance Use Topics Alcohol use: No Drug use: No Family History Problem Relation Name Age of Onset Rheum arthritis Mother mid 50s Prostate cancer Father age 76 Diabetes Sister Maria A insulin, CHF Diabetes Sister oral rx Other ([id number]) Brother Saul MVA 40 Prostate cancer Brother Wyatt No Known Problems Brother Other ([id number]) Brother Tracey PAD, smoker- ischemic bowel w/ resection Heart failure Brother Estecayden Diabetes Brother Tracey insulin, age 74 in 04/08 Diabetes Maternal Grandmother Diabetes Maternal Grandfather Diabetes Paternal Grandmother Diabetes Paternal Grandfather Allergies Allergen Reactions Kiwi Extract Swelling Mouth and lip swelling Other reaction(s): Swelling Lisinopril Other reaction(s): Other (See Comments) cough Other reaction(s): Other Other Current Outpatient Medications Medication Sig Dispense Refill amLODIPine (Norvasc) 5 MG tablet Take 1 tablet (5 mg) by mouth daily. 90 tablet 1 Ascorbic Acid (vitamin C) 1000 MG tablet Take 1,000 mg by mouth daily. atorvastatin (Lipitor) 10 MG tablet Take 1 tablet (10 mg) by mouth daily. 90 tablet 1 cholestyramine (Questran) 4 g packet MIX AND TAKE 1 PACKET BY MOUTH 2 TIMES DAILY. (Patient taking differently: MIX AND TAKE 1 PACKET BY MOUTH 2 TIMES DAILY. ( 9 grams 1/2 a packet)) 60 packet 5 Continuous Blood Gluc Auto Body Technician (Aito BVStyle Javad 2 Bisbee) device TEST GLUCOSE 4 TIMES DAILY BEFORE MEALS AND AT BEDTIME Continuous Glucose Monitor Sup kit Test glucose 4 times daily before meals and at bedtime 1 kit 0 Continuous Glucose Monitor Sup misc Test 4 times daily before meals and at bedtime 2 Device 11 cyanocobalamin (Vitamin B-12) 500 MCG tablet Take 1 tablet (500 mcg) by mouth daily. 90 tablet 1 dicyclomine (Bentyl) 10 MG capsule Take 1 capsule (10 mg) by mouth 2 times daily. 180 capsule 1 ferrous sulfate 325 (65 Fe) MG tablet Take 325 mg by mouth daily (with breakfast). glimepiride (Amaryl) 4 MG tablet Take 1 tablet (4 mg) by mouth 2 times daily. 180 tablet 1 ibuprofen 200 MG tablet Take 200 mg by mouth. losartan-hydroCHLOROthiazide (Hyzaar) 100-12.5 MG tablet Take 1 tablet by mouth daily. 90 tablet 1 metFORMIN (Glucophage) 500 MG tablet Take 2 tablets (1,000 mg) by mouth 2 times daily. 360 tablet 1 omeprazole (PriLOSEC) [address] capsule Take 1 capsule (20 mg) by mouth daily. 90 capsule 1 No current facility-administered medications for this visit. Review of Systems Constitutional: Positive for fatigue. Negative for appetite change, chills, diaphoresis, fever and unexpected weight change. HENT: Negative for dental problem, mouth sores, nosebleeds, sneezing, sore throat, tinnitus, trouble swallowing and voice change. Eyes: Negative for photophobia, pain and visual disturbance. Respiratory: Negative for cough, shortness of breath and wheezing. Cardiovascular: Negative for chest pain, palpitations and leg swelling. Gastrointestinal: Positive for diarrhea. Negative for abdominal distention, abdominal pain, blood in stool, constipation, nausea and vomiting. Endocrine: Negative for cold intolerance and heat intolerance. Genitourinary: Negative for difficulty urinating, frequency, hematuria and urgency. Musculoskeletal: Negative for arthralgias, back pain, gait problem and myalgias. Skin: Negative for pallor and rash. Allergic/Immunologic: Negative for immunocompromised state. Neurological: Negative for dizziness, syncope, weakness, light-headedness, numbness and headaches. Hematological: Negative for adenopathy. Does not bruise/bleed easily. Psychiatric/Behavioral: Negative for confusion and sleep disturbance. The patient is not nervous/anxious. All other systems reviewed and are negative. Vitals: 01/13/23 1135 BP: (!) 159/71 BP Location: Right arm Patient Position: Sitting Pulse: 68 Temp: 36.7 C (98 F) TempSrc: Temporal SpO2: 98% Weight: 85.7 kg (189 lb) Height: 1.6 m (5' 3) ECOG PS = 0 Physical Exam Vitals and nursing note reviewed. Constitutional: General: She is not in acute distress. Appearance: Normal appearance. She is not ill-appearing. HENT: Head: Normocephalic and atraumatic. Nose: Nose normal. Mouth/Throat: Pharynx: Oropharynx is clear. No oropharyngeal exudate or posterior oropharyngeal erythema. Eyes: General: No scleral icterus. Extraocular Movements: Extraocular movements intact. Conjunctiva/sclera: Conjunctivae normal. Pupils: Pupils are equal, round, and reactive to light. Cardiovascular: Rate and Rhythm: Normal rate and regular rhythm. Heart sounds: Normal heart sounds. No murmur heard. Pulmonary: Effort: Pulmonary effort is normal. No respiratory distress. Breath sounds: Normal breath sounds. No wheezing. Abdominal: General: Abdomen is flat. Bowel sounds are normal. There is no distension. Palpations: Abdomen is soft. There is no mass. Tenderness: There is no abdominal tenderness. There is no guarding. Musculoskeletal: General: No swelling or tenderness. Normal range of motion. Cervical back: Normal range of motion and neck supple. Right lower leg: No edema. Left lower leg: No edema. Lymphadenopathy: Cervical: No cervical adenopathy. Skin: General: Skin is warm and dry. Findings: No bruising or rash. Neurological: General: No focal deficit present. Mental Status: She is alert and oriented to person, place, and time. Mental status is at baseline. Psychiatric: Mood and Affect: Mood normal. Thought Content: Thought content normal. Imaging/Labs: No visits with results within 1 Month(s) from this visit. Latest known visit with results is: Telephone on 10/08/2022 Component Date Value Ref Range Status White Blood Cell Count 01/12/2023 7.9 3.8 - 10.8 Thousand/uL Final RBC 01/12/2023 3.87 3.80 - 5.10 Million/uL Final HEMOGLOBIN 01/12/2023 11.0 (L) 11.7 - 15.5 g/dL Final HEMATOCRIT 01/12/2023 33.9 (L) 35.0 - 45.0 % Final MCV 01/12/2023 87.6 80.0 - 100.0 fL Final MCH 01/12/2023 28.4 27.0 - 33.0 pg Final MCHC 01/12/2023 32.4 32.0 - 36.0 g/dL Final RDW 01/12/2023 13.3 11.0 - 15.0 % Final Platelet Count 01/12/2023 393 140 - 400 Thousand/uL Final Mean Platelet Volume (MPV) 01/12/2023 9.5 7.5 - 12.5 fL Final Absolute Neutrophils 01/12/2023 3,674 1,500 - 7,800 cells/uL Final ABSOLUTE LYMPHOCYTES - [facility] 01/12/2023 3,460 850 - 3,900 cells/uL Final Monocytes Absolute 01/12/2023 450 200 - 950 cells/uL Final ABSOLUTE EOSINOPHILS - [facility] 01/12/2023 253 15 - 500 cells/uL Final ABSOLUTE BASOPHILS - [facility] 01/12/2023 63 0 - 200 cells/uL Final Neutrophils Relative 01/12/2023 46.5 % Final Lymphocytes Absolute 01/12/2023 43.8 % Final MONOCYTES - [facility] 01/12/2023 5.7 % Final EOSINOPHILS - [facility] 01/12/2023 3.2 % Final BASOPHILS - [facility] 01/12/2023 0.8 % Final IRON, TOTAL 01/12/2023 62 45 - 160 mcg/dL Final IRON BINDING CAPACITY 01/12/2023 400 250 - 450 mcg/dL (calc) Final % SATURATION 01/12/2023 16 16 - 45 % (calc) Final FERRITIN 01/12/2023 40 16 - 288 ng/mL Final Imaging Reviewed: as per HPI - I have reviewed all available pertinent laboratory, imaging and pathology results with the patient and/or family members today. Assessment/Plan: Diagnosis Plan 1. Iron deficiency anemia due to chronic blood loss CBC auto differential Iron and TIBC Ferritin CBC auto differential Iron and TIBC Ferritin - iron deficiency anemia has improved to PO iron supplementation - continue ferrous sulfate 325mg PO BID and monitor labs again in 4-6 months. - follow up with GI as directed for the bleeding AVMs. Patient was advised that the AVMs can returnin the future, so we will need to continue to monitor for further bleeding. All questions were answered to the satisfaction of the patient and/or family. Return to office in 4-6 months, or sooner if worrisome signs/symptoms arise. Harry Serrano DO Hematology/Medical Oncology documented in this [facility]08-23-2023 Telephone encounter Note* Telephone Encounter - Sunita Avendaño RN - 10/08/2022 11:39 AM EDT Lab orders to be drawn prior to Jan 13 appt pended to be signed. Patient advised to increase PO ferrous Sulfate to 325 mg 2 times daily. She is taking with food. Advised to call if she is having any issues tolerating taking PO. She is aware of appointment 01/13 and to have labs drawn prior. Will send lab requisitions. She verbalized understanding of all instructions. [id number] Miscellaneous Notes* Telephone Encounter - Sunita Avendaño RN - 10/08/2022 11:39 AM EDT Lab orders to be drawn prior to Jan 13 appt pended to be signed. Patient advised to increase PO ferrous Sulfate to 325 mg 2 times daily. She is taking with food. Advised to call if she is having any issues tolerating taking PO. She is aware of appointment 01/13 and to have labs drawn prior. Will send lab requisitions. She verbalized understanding of all instructions. * Telephone Encounter - Sunita Avendaño RN - 10/08/2022 11:37 AM EDT ----- Message from Harry Serrano DO sent at 10/08/2022 10:35 AM EDT ----- Please let patient know her iron deficiency anemia is slightly improved, however I would recommend she increase the ferrous sulfate to 325mg PO BID. We will repeat her lab work in 3 months. Ok to move her OV out to 3 months as well. Thank you documented in this [facility]08-23-2023 Telephone encounter Note* Telephone Encounter - Sunita Avendaño RN - 10/08/2022 11:37 AM EDT ----- Message from Harry Serrano DO sent at 10/08/2022 10:35 AM EDT ----- Please let patient know her iron deficiency anemia is slightly improved, however I would recommend she increase the ferrous sulfate to 325mg PO BID. We will repeat her lab work in 3 months. Ok to move her OV out to 3 months as well. [facility] you [id number] History of Present illness Narrative* Harry Serrano DO - 10/07/2022 8:30 AM EDT New Patient Hematology/Oncology Office Visit Consultation/Referral Reason: iron deficiency anemia Referred by: Dr. Marroquin HPI: Cata Ayers is a 72 y.o. female who comes in today for evaluation of anemia. Records from her PCP were reviewed. In Feb 2022, the patient had lab work performed that showed anemia. Her iron levels were low. She denied any GI bleeding. She was referred to GI and EGD and colonoscopy were performed in June 2022 in [place]: records indicate she had one bleeding AVM in the colon and two in the ileum which were cauterized. EGD showed a small hiatal hernia. CT a/p was negative for malignancy. She was started on ferrous sulfate one tablet a day in July. This causes her to have upset stomach. She has diarrhea and nausea. Weight stable. Mild fatigue. No GI bleeding. No other concerns today. 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 Underwood- no f/u Cscope indicated B12 deficiency 02/21/2021 Breast cancer screening 09/2020 prefers every other year. Chronic diarrhea 2022 n/s colitis per Cscope Cystoid macular edema 2019 Schartman, Optho Elbow fracture, left 1954 Essential hypertension 2011 GERD with esophagitis 2012 EGD 07/[address] Underwood- HH w/ duodenitis H/O colonoscopy 06/2022 Dr Underwood- ileal AVMs cauterized- no need for rech History of renal stone 2006 Left rotator cuff tear 2012 Lumbar disc disease 2006 MRI- right sciatica Post-cholecystectomy syndrome 2019 Renal cyst [address] 04/10 Type 2 diabetes mellitus (HCC) 2007 off rx for a few years, restarted 11/02 -Ailyn/ [facility] Past Surgical History: Procedure Laterality Date CATARACT EXTRACTION Bilateral 2013 [facility] COLONOSCOPY 06/2018 Dr Frost- few polyps- due 2023 COLONOSCOPY 2012 [facility] COLONOSCOPY 06/2022 2 ileal AVMs treated per Dr Underwood- no f/u Cscope indicated DILATION AND CURETTAGE OF UTERUS EGD (HISTORICAL) 06/2022 Dr. Underwood- Hiatal hernia w/ duodenitis HYSTERECTOMY 1981 DUB- simple hyst LAP,CHOLECYSTECTOMY (HISTORICAL) 2017 [facility] LITHOTRIPSY 2005 MENISCECTOMY Right 1979 UPPER GASTROINTESTINAL ENDOSCOPY 2012 neg per [facility] Patient Active Problem List Diagnosis Date Noted Adrenal adenoma, left 09/03/2022 AVM (arteriovenous malformation) of colon 06/2022 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/2021 B12 deficiency 02/21/2021 Essential hypertension 02/22/2020 Cystoid macular edema 06/20/2019 History of renal stone 12/20/2018 Renal cyst 12/20/2018 SMILEY-inhibitor cough 12/20/2018 GERD with esophagitis 10/22/2016 Cholelithiasis 10/22/2016 Lumbar disc disease 10/22/2016 Type 2 diabetes mellitus (HCC) 10/22/2016 Social History Tobacco Use Smoking status: Never Smokeless tobacco: Never Substance Use Topics Alcohol use: No Drug use: No Family History Problem Relation Name Age of Onset Rheum arthritis Mother mid 50s Prostate cancer Father age 76 Diabetes Sister Maria A insulin, CHF Diabetes Sister oral rx Other ([id number]) Brother Saul MVA 40 Prostate cancer Brother Wyatt No Known Problems Brother Other ([id number]) Brother Tracey PAD, smoker- ischemic bowel w/ resection Heart failure Brother Estecayden Diabetes Brother Estecayden insulin, age 74 in 04/08 Diabetes Maternal Grandmother Diabetes Maternal Grandfather Diabetes Paternal Grandmother Diabetes Paternal Grandfather Allergies Allergen Reactions Kiwi Extract Swelling Mouth and lip swelling Other reaction(s): Swelling Lisinopril Other reaction(s): Other (See Comments) cough Other reaction(s): Other Other Current Outpatient Medications Medication Sig Dispense Refill cholestyramine (Questran) 4 g packet MIX AND TAKE 1 PACKET BY MOUTH 2 TIMES DAILY. (Patient taking differently: MIX AND TAKE 1 PACKET BY MOUTH 2 TIMES DAILY. ( 9 grams 1/2 a packet)) 60 packet 5 amLODIPine (Norvasc) 5 MG tablet Take 1 tablet (5 mg) by mouth daily. 90 tablet 1 Ascorbic Acid (vitamin C) 1000 MG tablet Take 1,000 mg by mouth daily. atorvastatin (Lipitor) 10 MG tablet Take 1 tablet (10 mg) by mouth daily. 90 tablet 1 Continuous Blood Gluc Auto Body Technician (FreeStyle Javad 2 Bisbee) device TEST GLUCOSE 4 TIMES DAILY BEFORE MEALS AND AT BEDTIME Continuous Glucose Monitor Sup kit Test glucose 4 times daily before meals and at bedtime 1 kit 0 Continuous Glucose Monitor Sup misc Test 4 times daily before meals and at bedtime 2 Device 11 cyanocobalamin (Vitamin B-12) 500 MCG tablet Take 1 tablet (500 mcg) by mouth daily. 90 tablet 1 dicyclomine (Bentyl) 10 MG capsule Take 1 capsule (10 mg) by mouth 2 times daily. 180 capsule 1 ferrous sulfate 325 (65 Fe) MG tablet Take 325 mg by mouth daily (with breakfast). glimepiride (Amaryl) 4 MG tablet Take 1 tablet (4 mg) by mouth 2 times daily. 180 tablet 1 ibuprofen 200 MG tablet Take 200 mg by mouth. losartan-hydroCHLOROthiazide (Hyzaar) 100-12.5 MG tablet Take 1 tablet by mouth daily. 90 tablet 1 metFORMIN (Glucophage) 500 MG tablet Take 2 tablets (1,000 mg) by mouth 2 times daily. 360 tablet 1 omeprazole (PriLOSEC) [address] capsule Take 1 capsule (20 mg) by mouth daily. 90 capsule 1 No current facility-administered medications for this visit. Review of Systems Constitutional: Positive for fatigue. Negative for appetite change, chills, diaphoresis, fever and unexpected weight change. HENT: Negative for dental problem, mouth sores, nosebleeds, sneezing, sore throat, tinnitus, trouble swallowing and voice change. Eyes: Negative for photophobia, pain and visual disturbance. Respiratory: Negative for cough, shortness of breath and wheezing. Cardiovascular: Negative for chest pain, palpitations and leg swelling. Gastrointestinal: Positive for diarrhea and nausea. Negative for abdominal distention, abdominal pain, blood in stool, constipation and vomiting. Endocrine: Negative for cold intolerance and heat intolerance. Genitourinary: Negative for difficulty urinating, frequency, hematuria and urgency. Musculoskeletal: Negative for arthralgias, back pain, gait problem and myalgias. Skin: Negative for pallor and rash. Allergic/Immunologic: Negative for immunocompromised state. Neurological: Negative for dizziness, syncope, weakness, light-headedness, numbness and headaches. Hematological: Negative for adenopathy. Does not bruise/bleed easily. Psychiatric/Behavioral: Negative for confusion and sleep disturbance. The patient is not nervous/anxious. All other systems reviewed and are negative. Vitals: 10/07/22 0828 BP: (!) 143/70 BP Location: Right arm Patient Position: Sitting Pulse: 62 Temp: 97.7 F (36.5 C) TempSrc: Temporal SpO2: 97% Weight: 183 lb 14.4 oz (83.4 kg) Height: 5' 3 (1.6 m) ECOG PS = 0 Physical Exam Vitals and nursing note reviewed. Constitutional: General: She is not in acute distress. Appearance: Normal appearance. She is not ill-appearing. HENT: Head: Normocephalic and atraumatic. Nose: Nose normal. Mouth/Throat: Pharynx: Oropharynx is clear. No oropharyngeal exudate or posterior oropharyngeal erythema. Eyes: General: No scleral icterus. Extraocular Movements: Extraocular movements intact. Conjunctiva/sclera: Conjunctivae normal. Pupils: Pupils are equal, round, and reactive to light. Cardiovascular: Rate and Rhythm: Normal rate and regular rhythm. Heart sounds: Normal heart sounds. No murmur heard. Pulmonary: Effort: Pulmonary effort is normal. No respiratory distress. Breath sounds: Normal breath sounds. No wheezing. Abdominal: General: Abdomen is flat. Bowel sounds are normal. There is no distension. Palpations: Abdomen is soft. There is no mass. Tenderness: There is no abdominal tenderness. There is no guarding. Musculoskeletal: General: No swelling or tenderness. Normal range of motion. Cervical back: Normal range of motion and neck supple. Right lower leg: No edema. Left lower leg: No edema. Lymphadenopathy: Cervical: No cervical adenopathy. Skin: General: Skin is warm and dry. Findings: No bruising or rash. Neurological: General: No focal deficit present. Mental Status: She is alert and oriented to person, place, and time. Mental status is at baseline. Psychiatric: Mood and Affect: Mood normal. Thought Content: Thought content normal. Imaging/Labs: No visits with results within 1 Month(s) from this visit. Latest known visit with results is: Office Visit on 09/03/2022 Component Date Value Ref Range Status White Blood Cell Count 09/03/2022 7.2 3.8 - 10.8 Thousand/uL Final RBC 09/03/2022 4.02 3.80 - 5.10 Million/uL Final HEMOGLOBIN 09/03/2022 10.9 (L) 11.7 - 15.5 g/dL Final HEMATOCRIT 09/03/2022 34.0 (L) 35.0 - 45.0 % Final MCV 09/03/2022 84.6 80.0 - 100.0 fL Final MCH 09/03/2022 27.1 27.0 - 33.0 pg Final MCHC 09/03/2022 32.1 32.0 - 36.0 g/dL Final RDW 09/03/2022 14.4 11.0 - 15.0 % Final Platelet Count 09/03/2022 424 (H) 140 - 400 Thousand/uL Final Mean Platelet Volume (MPV) 09/03/2022 9.1 7.5 - 12.5 fL Final Absolute Neutrophils 09/03/2022 4,082 1,500 - 7,800 cells/uL Final ABSOLUTE LYMPHOCYTES - [facility] 09/03/2022 2,405 850 - 3,900 cells/uL Final Monocytes Absolute 09/03/2022 461 200 - 950 cells/uL Final ABSOLUTE EOSINOPHILS - [facility] 09/03/2022 202 15 - 500 cells/uL Final ABSOLUTE BASOPHILS - [facility] 09/03/2022 50 0 - 200 cells/uL Final Neutrophils Relative 09/03/2022 56.7 % Final Lymphocytes Absolute 09/03/2022 33.4 % Final MONOCYTES - [facility] 09/03/2022 6.4 % Final EOSINOPHILS - [facility] 09/03/2022 2.8 % Final BASOPHILS - [facility] 09/03/2022 0.7 % Final GLUCOSE 09/03/2022 182 (H) 65 - 99 mg/dL Final Comment: Fasting reference interval For someone without known diabetes, a glucose value >125 mg/dL indicates that they may have diabetes and this should be confirmed with a follow-up test. Urea Nitrogen (BUN) 09/03/2022 19 7 - 25 mg/dL Final Creatinine 09/03/2022 1.07 (H) 0.60 - 1.00 mg/dL Final EGFR 09/03/2022 55 (L) > OR = 60 mL/min/1.73m2 Final Comment: The eGFR is based on the CKD-EPI 2020 equation. To calculate the new eGFR from a previous Creatinine or Cystatin C result, go to https://www.kidney.org/professionals/ kdoqi/gfr%5Fcalculator BUN/CREATININE RATIO 09/03/2022 18 6 - 22 (calc) Final SODIUM 09/03/2022 139 135 - 146 mmol/L Final POTASSIUM 09/03/2022 4.3 3.5 - 5.3 mmol/L Final CHLORIDE 09/03/2022 99 98 - 110 mmol/L Final Carbon Dioxide (CO2) 09/03/2022 31 20 - 32 mmol/L Final CALCIUM 09/03/2022 9.6 8.6 - 10.4 mg/dL Final PROTEIN, TOTAL - [facility] 09/03/2022 7.6 6.1 - 8.1 g/dL Final ALBUMIN - [facility] 09/03/2022 4.3 3.6 - 5.1 g/dL Final GLOBULIN - [facility] 09/03/2022 3.3 1.9 - 3.7 g/dL (calc) Final ALBUMIN/GLOBULIN RATIO - [facility] 09/03/2022 1.3 1.0 - 2.5 (calc) Final BILIRUBIN, TOTAL - [facility] 09/03/2022 0.3 0.2 - 1.2 mg/dL Final ALKALINE PHOSPHATASE 09/03/2022 44 37 - 153 U/L Final AST - [facility] 09/03/2022 21 10 - 35 U/L Final ALT - [facility] 09/03/2022 23 6 - 29 U/L Final CHOLESTEROL, TOTAL 09/03/2022 189 <200 mg/dL Final HDL CHOLESTEROL 09/03/2022 71 > OR = 50 mg/dL Final TRIGLYCERIDES 09/03/2022 132 <150 mg/dL Final LDL-CHOLESTEROL 09/03/2022 95 mg/dL (calc) Final Comment: Reference range: <100 Desirable range <100 mg/dL for primary prevention; <70 mg/dL for patients with CHD or diabetic patients with > or = 2 CHD risk factors. LDL-C is now calculated using the Suze calculation, which is a validated novel method providing better accuracy than the Friedewald equation in the estimation of LDL-C. Rafat HENRY et al. CHRISTIANO. 2013;310(19): 2518-3386 (http://education.Jiongji App/faq/DJM817) CHOL/HDLC RATIO 09/03/2022 2.7 <5.0 (calc) Final NON HDL CHOLESTEROL 09/03/2022 118 <130 mg/dL (calc) Final Comment: For patients with diabetes plus 1 major ASCVD risk factor, treating to a non-HDL-C goal of <100 mg/dL (LDL-C of <70 mg/dL) is considered a therapeutic option. HEMOGLOBIN A1C - [place] 09/03/2022 7.7 (H) <5.7 % of total Hgb Final Comment: For someone without known diabetes, a hemoglobin A1c value of 6.5% or greater indicates that they may have diabetes and this should be confirmed with a follow-up test. For someone with known diabetes, a value <7% indicates that their diabetes is well controlled and a value greater than or equal to 7% indicates suboptimal control. A1c targets should be individualized based on duration of diabetes, age, comorbid conditions, and other considerations. Currently, no consensus exists regarding use of hemoglobin A1c for diagnosis of diabetes for children. Imaging Reviewed: as per HPI - I have reviewed all available pertinent laboratory, imaging and pathology results with the patient and/or family members today. Assessment/Plan: Diagnosis Plan 1. Iron deficiency anemia due to chronic blood loss CBC auto differential Iron and TIBC Ferritin CBC auto differential Iron and TIBC Ferritin - will repeat labs today - continue ferrous sulfate 325mg PO once daily for now. May need additional PO iron or IV iron supplementation, if she cannot tolerate the PO iron. - further recommendations pending results of today's labs - follow up with GI as directed for the bleeding AVMs. Patient was advised that the AVMs can returnin the future, so we will need to continue to monitor for further bleeding. All questions were answered to the satisfaction of the patient and/or family. Return to office in 2 weeks or sooner if worrisome signs/symptoms arise. I spent total time 60 minutes counseling or coordinating care, reviewing the medical record, and provided a detailed discussion as noted above. Harry Serrano DO Hematology/Medical Oncology documented in this [facility]08-09-2023 Telephone encounter Note* Telephone Encounter - Dodie Jeter - 09/24/2022 10:33 AM EDT Re-faxed referral, demo, ID, labs, imaging and summary of care to: .[phone] [id number] Miscellaneous Notes* Telephone Encounter - Dodie Jeter - 09/24/2022 10:33 AM EDT Re-faxed referral, demo, ID, labs, imaging and summary of care to: .[phone] [facility] * Telephone Encounter - Gerson Garcia - 09/23/2022 2:27 PM EDT Name of caller: Juanis Contact phone number: [phone] Relationship to Patient: [facility] Provider: Dr. Marroquin Practice: [facility] Chief Complaint/Reason for Call: Juanis from [facility] stated their office received incomplete referral. Juanis asked if a new referral could be faxed over including more details concerning patient demographics, a DX, a date for blood draws, and any additional labs with an abnormal trend. Please advise [phone] [phone] (Direct line) Best time of day caller can be reached: any Patient advised that office/PCP has 24-48 business hours to return their call: No documented in this [facility]08-08-2023 Telephone encounter Note* Telephone Encounter - Gerson Garcia - 09/23/2022 2:27 PM EDT Name of caller: Juanis Contact phone number: [phone] Relationship to Patient: [facility] Provider: Dr. Marroquin Practice: [facility] Chief Complaint/Reason for Call: Juanis from [facility] stated their office received incomplete referral. Juanis asked if a new referral could be faxed over including more details concerning patient demographics, a DX, a date for blood draws, and any additional labs with an abnormal trend. Please advise [phone] [phone] (Direct line) Best time of day caller can be reached: any Patient advised that office/PCP has 24-48 business hours to return their call: No [id number] Telephone encounter Note* Telephone Encounter - Debi Mcpherson - 09/11/2022 7:59 AM EDT Referral pended for dx and doctor's signature [facility] [id number] Miscellaneous Notes* Telephone Encounter - Debirobin Wellse - 09/11/2022 7:59 AM EDT Referral pended for dx and doctor's signature * Telephone Encounter - Debi Wellse - 09/11/2022 7:58 AM EDT Images from the original note were not included. Alpesh Marroquin DO 09/09/2022 4:23 PM EDT Back to Top Reviewing her record I see there is a blank under referrals for hematology. Please complete the hematology referral for [facility] Nika Phillips MA 09/08/2022 3:13 PM EDT Placed call to patient to review results. Two patient identifiers were confirmed. All results and direction reviewed with patient. Patient is agreeable to see hematology for anemia issues. Referral pended for provider review. Patient is not agreeable to start Actos. She stated does not want to takeany more medication. She will change her diet to get to gaol on her own. Alpesh Marroquin, DO 09/07/2022 5:33 PM EDT A1c elevated over goal of less than 7.5. She is on maximal doses of glimepiride and metformin. I would recommend beginning a third drug called Actos which is affordable generic rx and should get her A1c levels below 7.5. Let me know if she consents to starting this medicine. Also she continues to be slightly anemic at 10.9. Reviewed her recent GI endoscopies as well as CT of the abdomen. Not sureof the etiology of this anemia so see if she consents to seeing a call manager as well. She might need IV iron infusion. documented in this [facility]07-27-2023 Telephone encounter Note* Telephone Encounter - Debi Mcpherson - 09/11/2022 7:58 AM EDT Images from the original note were not included. Alpesh Marroquin, DO 09/09/2022 4:23 PM EDT Back to Top Reviewing her record I see there is a blank under referrals for hematology. Please complete the hematology referral for [facility] Nika Phillips MA 09/08/2022 3:13 PM EDT Placed call to patient to review results. Two patient identifiers were confirmed. All results and direction reviewed with patient. Patient is agreeable to see hematology for anemia issues. Referral pended for provider review. Patient is not agreeable to start Actos. She stated does not want to takeany more medication. She will change her diet to get to gaol on her own. Alpesh Marroquin, DO 09/07/2022 5:33 PM EDT A1c elevated over goal of less than 7.5. She is on maximal doses of glimepiride and metformin. I would recommend beginning a third drug called Actos which is affordable generic rx and should get her A1c levels below 7.5. Let me know if she consents to starting this medicine. Also she continues to be slightly anemic at 10.9. Reviewed her recent GI endoscopies as well as CT of the abdomen. Not sureof the etiology of this anemia so see if she consents to seeing a call manager as well. She might need IV iron infusion. [id number] History of Present illness Narrative* Alpesh Marroquin, DO - 09/03/2022 8:00 AM EDT Images from the original note were not included. [facility] [address] [address] Visit type: Established Patient Reason for Visit: Follow-up (6 month med check) Assessment / Plan: Cata was seen today for follow-up. Diagnoses and all orders for this visit: Type 2 diabetes mellitus without complication, without long-term current use of insulin (CMS/HCC) (HCC) (Primary) Comments: Stable, continue metformin and glimepiride Orders: - Hemoglobin A1c; Future - Hemoglobin A1c Essential hypertension Comments: Stable, continue losartan/HCTZ and amlodipine Orders: - CBC auto differential; Future - Comprehensive metabolic panel; Future - CBC auto differential - Comprehensive metabolic panel AVM (arteriovenous malformation) of colon Adrenal adenoma, left Gastroesophageal reflux disease with esophagitis without hemorrhage Comments: Stable, continue Prilosec Lumbar disc disease Comments: Stable, OTC ibuprofen with Tylenol as needed Hypercholesterolemia Comments: Stable, continue atorvastatin Orders: - Lipid panel; Future - Lipid panel Other orders - amLODIPine (Norvasc) 5 MG tablet; Take 1 tablet (5 mg) by mouth daily. - atorvastatin (Lipitor) 10 MG tablet; Take 1 tablet (10 mg) by mouth daily. - cholestyramine (Questran) 4 g packet; MIX AND TAKE 1 PACKET BY MOUTH 2 TIMES DAILY. - glimepiride (Amaryl) 4 MG tablet; Take 1 tablet (4 mg) by mouth 2 times daily. - losartan-hydroCHLOROthiazide (Hyzaar) 100-12.5 MG tablet; Take 1 tablet by mouth daily. - metFORMIN (Glucophage) 500 MG tablet; Take 2 tablets (1,000 mg) by mouth 2 times daily. - omeprazole (PriLOSEC) [address] capsule; Take 1 capsule (20 mg) by mouth daily. - dicyclomine (Bentyl) 10 MG capsule; Take 1 capsule (10 mg) by mouth 2 times daily. Subjective: Patient ID: Cata Ayers is a 72 y.o. female. HPI hypertensive type II diabetic presents for checkup. Recently underwent repeat EGD, colonoscopy,CT scan of the abdomen for work-up for anemia and diarrhea. 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 She feels better. Was given psyllium and Bentyl and cholestyramine with improvement of her chronic diarrhea. Glucose levels in the 150 range. No excessive polyuria polydipsia or diaphoresis. No unhealing skinlesions. Review of Systems Having a flareup of her sciatica at times. Right hip and leg pain. Improves with OTC meds. No recent falls or injury. Enjoys outdoor gardening. No cough chest pain or wheezing. No jaw pain or arm pain with walking. No heartburn or dysphagia. Rare palpitations. No dyspnea. No PND orthopnea or claudication. No recurrent GI bleeding. More formed stools. No dysuria hematuria. Allergies Allergen Reactions Kiwi Extract Swelling Mouth and lip swelling Other reaction(s): Swelling Lisinopril Other reaction(s): Other (See Comments) cough Other reaction(s): Other Other Current Outpatient Medications on File Prior to Visit Medication Sig Dispense Refill Ascorbic Acid (vitamin C) 1000 MG tablet Take 1,000 mg by mouth daily. cyanocobalamin (Vitamin B-12) 500 MCG tablet Take 1 tablet (500 mcg) by mouth daily. 90 tablet 1 ferrous sulfate 325 (65 Fe) MG tablet Take 325 mg by mouth daily (with breakfast). [DISCONTINUED] amLODIPine (Norvasc) 5 MG tablet Take 1 tablet (5 mg) by mouth daily. 90 tablet 1 [DISCONTINUED] atorvastatin (Lipitor) 10 MG tablet Take 1 tablet (10 mg) by mouth daily. 90 tablet 1 [DISCONTINUED] cholestyramine (Questran) 4 g packet MIX AND TAKE 1 PACKET BY MOUTH 2 TIMES DAILY. 60 packet 5 [DISCONTINUED] glimepiride (Amaryl) 4 MG tablet Take 1 tablet (4 mg) by mouth 2 times daily. 180 tablet 1 [DISCONTINUED] losartan-hydroCHLOROthiazide (Hyzaar) 100-12.5 MG tablet Take 1 tablet by mouth daily. 90 tablet 1 [DISCONTINUED] metFORMIN (Glucophage) 500 MG tablet Take 2 tablets (1,000 mg) by mouth 2 times daily. 360 tablet 0 [DISCONTINUED] omeprazole (PriLOSEC) [address] capsule Take 1 capsule (20 mg) by mouth daily. 90 capsule 1 Continuous Glucose Monitor Sup kit Test glucose 4 times daily before meals and at bedtime 1 kit 0 Continuous Glucose Monitor Sup misc Test 4 times daily before meals and at bedtime 2 Device 11 ibuprofen 200 MG tablet Take 200 mg by mouth. [DISCONTINUED] dicyclomine (Bentyl) 10 MG capsule Take 10 mg by mouth 2 times daily. No current facility-administered medications on file prior to visit. Patient Active Problem List Diagnosis History of renal stone Renal cyst Essential hypertension Cystoid macular edema Post-cholecystectomy syndrome B12 deficiency SMILEY-inhibitor cough GERD with esophagitis Cholelithiasis Lumbar disc disease Type 2 diabetes mellitus (HCC) AVM (arteriovenous malformation) of colon Adrenal adenoma, left Social History Tobacco Use Smoking status: Never Smokeless tobacco: Never Substance Use Topics Alcohol use: No Past Surgical History: Procedure Laterality Date CATARACT EXTRACTION Bilateral 2013 [facility] COLONOSCOPY 06/2018 Dr Frost- few polyps- due 2023 COLONOSCOPY 2012 [facility] COLONOSCOPY 06/2022 2 ileal AVMs treated per Dr Underwood- no f/u Cscope indicated DILATION AND CURETTAGE OF UTERUS EGD (HISTORICAL) 06/2022 Dr. Underwood- Hiatal hernia w/ duodenitis HYSTERECTOMY 1981 DUB- simple hyst LAP,CHOLECYSTECTOMY (HISTORICAL) 2017 [facility] LITHOTRIPSY 2006 MENISCECTOMY Right 1980 UPPER GASTROINTESTINAL ENDOSCOPY 2012 neg per [facility] Family History Problem Relation Name Age of Onset Rheum arthritis Mother mid 50s Prostate cancer Father age 76 Diabetes Sister Maria A insulin, CHF Diabetes Sister oral rx Other ([id number]) Brother Saul MVA 40 Prostate cancer Brother Wyatt No Known Problems Brother Other ([id number]) Brother Estecayden PAD, smoker- ischemic bowel w/ resection Heart failure Brother Estel Diabetes Brother Estecayden insulin, age 74 in 04/08 Diabetes Maternal Grandmother Diabetes Maternal Grandfather Diabetes Paternal Grandmother Diabetes Paternal Grandfather Objective: BP 116/64 (BP Location: Left arm, Patient Position: Sitting, BP Cuff Size: Large adult) Pulse 60 Temp 36.4 C (97.5 F) (Temporal) Ht 5' 3.5 (1.613 m) Wt 184 lb (83.5 kg) SpO2 98% BMI 32.08 kg/m Physical Exam She appears well. Normal oropharynx. No thyroid or neck masses. No carotid bruits. No adenopathy. Reflexes normal. Heart is regular with faint aortic stenotic murmur. Grade 1 out of 6 to 2 out of 6. Lungs are clear. Abdomen soft nontender without pain hepatosplenomegaly masses or bruits. Femoral pulses good. Negative straight leg raising bilaterally. Normal hip range of motion. There is no motor or sensory loss of the feet or toes. Pulses are good. No skin breakdowns. documented in this [facility]07-19-2023 History of Present illness Narrative* Alpesh Marroquin DO - 09/03/2022 8:00 AM EDT Images from the original note were not included. [address] [address] Visit type: Established Patient Reason for Visit: Follow-up (6 month med check) Assessment / Plan: Ctaa was seen today for follow-up. Diagnoses and all orders for this visit: Type 2 diabetes mellitus without complication, without long-term current use of insulin ([facility]) (Primary) Comments: Stable, continue metformin and glimepiride Orders: - Hemoglobin A1c; Future - Hemoglobin A1c Essential hypertension Comments: Stable, continue losartan/HCTZ and amlodipine Orders: - CBC auto differential; Future - Comprehensive metabolic panel; Future - CBC auto differential - Comprehensive metabolic panel AVM (arteriovenous malformation) of colon Adrenal adenoma, left Gastroesophageal reflux disease with esophagitis without hemorrhage Comments: Stable, continue Prilosec Lumbar disc disease Comments: Stable, OTC ibuprofen with Tylenol as needed Hypercholesterolemia Comments: Stable, continue atorvastatin Orders: - Lipid panel; Future - Lipid panel Other orders - amLODIPine (Norvasc) 5 MG tablet; Take 1 tablet (5 mg) by mouth daily. - atorvastatin (Lipitor) 10 MG tablet; Take 1 tablet (10 mg) by mouth daily. - cholestyramine (Questran) 4 g packet; MIX AND TAKE 1 PACKET BY MOUTH 2 TIMES DAILY. - glimepiride (Amaryl) 4 MG tablet; Take 1 tablet (4 mg) by mouth 2 times daily. - losartan-hydroCHLOROthiazide (Hyzaar) 100-12.5 MG tablet; Take 1 tablet by mouth daily. - metFORMIN (Glucophage) 500 MG tablet; Take 2 tablets (1,000 mg) by mouth 2 times daily. - omeprazole (PriLOSEC) [address] capsule; Take 1 capsule (20 mg) by mouth daily. - dicyclomine (Bentyl) 10 MG capsule; Take 1 capsule (10 mg) by mouth 2 times daily. Subjective: Patient ID: Cata Ayers is a 72 y.o. female. HPI hypertensive type II diabetic presents for checkup. Recently underwent repeat EGD, colonoscopy,CT scan of the abdomen for work-up for anemia and diarrhea. 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 She feels better. Was given psyllium and Bentyl and cholestyramine with improvement of her chronic diarrhea. Glucose levels in the 150 range. No excessive polyuria polydipsia or diaphoresis. No unhealing skinlesions. Review of Systems Having a flareup of her sciatica at times. Right hip and leg pain. Improves with OTC meds. No recent falls or injury. Enjoys outdoor gardening. No cough chest pain or wheezing. No jaw pain or arm pain with walking. No heartburn or dysphagia. Rare palpitations. No dyspnea. No PND orthopnea or claudication. No recurrent GI bleeding. More formed stools. No dysuria hematuria. Allergies Allergen Reactions Kiwi Extract Swelling Mouth and lip swelling Other reaction(s): Swelling Lisinopril Other reaction(s): Other (See Comments) cough Other reaction(s): Other Other Current Outpatient Medications on File Prior to Visit Medication Sig Dispense Refill Ascorbic Acid (vitamin C) 1000 MG tablet Take 1,000 mg by mouth daily. cyanocobalamin (Vitamin B-12) 500 MCG tablet Take 1 tablet (500 mcg) by mouth daily. 90 tablet 1 ferrous sulfate 325 (65 Fe) MG tablet Take 325 mg by mouth daily (with breakfast). [DISCONTINUED] amLODIPine (Norvasc) 5 MG tablet Take 1 tablet (5 mg) by mouth daily. 90 tablet 1 [DISCONTINUED] atorvastatin (Lipitor) 10 MG tablet Take 1 tablet (10 mg) by mouth daily. 90 tablet 1 [DISCONTINUED] cholestyramine (Questran) 4 g packet MIX AND TAKE 1 PACKET BY MOUTH 2 TIMES DAILY. 60 packet 5 [DISCONTINUED] glimepiride (Amaryl) 4 MG tablet Take 1 tablet (4 mg) by mouth 2 times daily. 180 tablet 1 [DISCONTINUED] losartan-hydroCHLOROthiazide (Hyzaar) 100-12.5 MG tablet Take 1 tablet by mouth daily. 90 tablet 1 [DISCONTINUED] metFORMIN (Glucophage) 500 MG tablet Take 2 tablets (1,000 mg) by mouth 2 times daily. 360 tablet 0 [DISCONTINUED] omeprazole (PriLOSEC) [address] capsule Take 1 capsule (20 mg) by mouth daily. 90 capsule 1 Continuous Glucose Monitor Sup kit Test glucose 4 times daily before meals and at bedtime 1 kit 0 Continuous Glucose Monitor Sup misc Test 4 times daily before meals and at bedtime 2 Device 11 ibuprofen 200 MG tablet Take 200 mg by mouth. [DISCONTINUED] dicyclomine (Bentyl) 10 MG capsule Take 10 mg by mouth 2 times daily. No current facility-administered medications on file prior to visit. Patient Active Problem List Diagnosis History of renal stone Renal cyst Essential hypertension Cystoid macular edema Post-cholecystectomy syndrome B12 deficiency SMILEY-inhibitor cough GERD with esophagitis Cholelithiasis Lumbar disc disease Type 2 diabetes mellitus (HCC) AVM (arteriovenous malformation) of colon Adrenal adenoma, left Social History Tobacco Use Smoking status: Never Smokeless tobacco: Never Substance Use Topics Alcohol use: No Past Surgical History: Procedure Laterality Date CATARACT EXTRACTION Bilateral 2013 [facility] COLONOSCOPY 06/2018 Dr Frost- few polyps- due 2023 COLONOSCOPY 2012 [facility] COLONOSCOPY 06/2022 2 ileal AVMs treated per Dr Underwood- no f/u Cscope indicated DILATION AND CURETTAGE OF UTERUS EGD (HISTORICAL) 06/2022 Dr. Underwood- Hiatal hernia w/ duodenitis HYSTERECTOMY 1981 DUB- simple hyst LAP,CHOLECYSTECTOMY (HISTORICAL) 2017 [facility] LITHOTRIPSY 2006 MENISCECTOMY Right 1980 UPPER GASTROINTESTINAL ENDOSCOPY 2012 neg per [facility] Family History Problem Relation Name Age of Onset Rheum arthritis Mother mid 50s Prostate cancer Father age 76 Diabetes Sister Maria A insulin, CHF Diabetes Sister oral rx Other ([id number]) Brother Saul MVA 40 Prostate cancer Brother Wyatt No Known Problems Brother Other ([id number]) Brother Estecayden PAD, smoker- ischemic bowel w/ resection Heart failure Brother Estel Diabetes Brother Estecayden insulin, age 74 in 04/08 Diabetes Maternal Grandmother Diabetes Maternal Grandfather Diabetes Paternal Grandmother Diabetes Paternal Grandfather Objective: BP 116/64 (BP Location: Left arm, Patient Position: Sitting, BP Cuff Size: Large adult) Pulse 60 Temp 36.4 C (97.5 F) (Temporal) Ht 5' 3.5 (1.613 m) Wt 184 lb (83.5 kg) SpO2 98% BMI 32.08 kg/m Physical Exam She appears well. Normal oropharynx. No thyroid or neck masses. No carotid bruits. No adenopathy. Reflexes normal. Heart is regular with faint aortic stenotic murmur. Grade 1 out of 6 to 2 out of 6. Lungs are clear. Abdomen soft nontender without pain hepatosplenomegaly masses or bruits. Femoral pulses good. Negative straight leg raising bilaterally. Normal hip range of motion. There is no motor or sensory loss of the feet or toes. Pulses are good. No skin breakdowns. documented in this [facility]07-19-2023 Miscellaneous Notes* Addendum Note - Nika Phillips MA - 09/03/2022 8:00 AM EDTAddended by: NIKA PHILLIPS on: 09/08/2022 03:15 PM Modules accepted: Orders * Addendum Note - Nika Phillips MA - 09/03/2022 8:00 AM EDTAddended by: NIKA PHILLIPS on: 09/19/2022 04:18 PM Modules accepted: Orders documented in this [facility]07-19-2023 Note* Addendum Note - Nika Phillips MA - 09/03/2022 8:00 AM EDTAddended by: NIKA PHILLIPS on: 09/08/2022 03:15 PM Modules accepted: Orders [id number] Note* Addendum Note - Nika Phillips MA - 09/03/2022 8:00 AM EDTAddended by: NIKA PHILLIPS on: 09/19/2022 04:18 PM Modules accepted: Orders [facility]05-30-2023 Telephone encounter Note* Telephone Encounter - Tevindestini Alexandre - 07/15/2022 11:15 AM EDT Medication name: cholestyramine (Questran) Medication dosage: 4 g (Grams) Monthly quantity needed: 30 How many day supply requestin days Medication route: oral (PO) Medication administration time(s): daily If taking medication PRN, reason for taking medication: N/A If this is a controlled substance do you receive this or any other controlled medication from any other doctor or facility: N/A Ordering provider: Lopez Date of last office visit: 03.06.2022 Date of next office visit: 09.03.2022 Date of last refill: (see medication tab): 02.21.2021 Updated/Validated preferred pharmacy: Yes Patient instructed to contact the pharmacy prior to picking up the medication: Yes [facility]05-30-2023 Miscellaneous Notes* Telephone Encounter - Tevin Alexandre - 07/15/2022 11:15 AM EDT Medication name: cholestyramine (Questran) Medication dosage: 4 g (Grams) Monthly quantity needed: 30 How many day supply requestin days Medication route: oral (PO) Medication administration time(s): daily If taking medication PRN, reason for taking medication: N/A If this is a controlled substance do you receive this or any other controlled medication from any other doctor or facility: N/A Ordering provider: Lopez Date of last office visit: 03.06.2022 Date of next office visit: 09.03.2022 Date of last refill: (see medication tab): 02.21.2021 Updated/Validated preferred pharmacy: Yes Patient instructed to contact the pharmacy prior to picking up the medication: Yes documented in this [facility]05-04-2023 History and physical note Author Chapin Friend [facility] June 19, 2022 10:47am Note Date/Time June 19, 2022 10:47a m [facility] Medical Records Department [address] [place] [address] History & Physical Exam 06/19/22 1046 MR#: [id number] Acct: [id number] Name: CATA AYERS Rep #:[id number] : 1950 72 From: Chapin Friend PCP: Dr. Alpesh Marroquin DO Status:[facility] Location: [place] [address] History and Physical Date of Admission: 06/19/22 72 F who presents to the office today to establish with GI for chronic diarrhea which began in approx 2016, about a year before she had cholecystectomy. No change in her bowels after cholecystectomy. She gets urgent diarrhea, mostly loose or watery stools, rare formed stools, can have multiple bouts of diarrhea per day, has accidents because of the urgency, no nocturnal diarrhea. Not necessarily related to eating. No particular triggers. Now taking 1/2 packet of cholestyramine daily (was constipated on a full packet), then stool is soft and almost formed, but still some days with diarrhea. Gets lots of cramping pain in lower abd, today LLQ, that precedes the diarrhea. No melena or hematochezia. Recently told she has anemia, and that she needs eval for GIB. Last colonoscopy 06/2018--negative bxs for microscopic colitis, had 2 tubular adenomas. Last EGD was 2012. On vitamin B 12 for about a year. Has been on metformin for many years. She takes omeprazole 40 mg daily, that controls her heartburn. She has occasional nausea, no vomiting. No dysphagia. No early satiety. Normal appetite.Weight is stable. PMH includes DM2, vitamin B 12 deficiency, GERD, HTN, hyperlipidemia PSH: cholecystectomy Exam Const General: cooperative, comfortable and no acute distress Nutritional Appearance: obese Orientation: alert, awake and oriented x3 HENMT Head: normal to inspection Eyes Conjunctivae: conjunctivae normal Sclera: sclerae normal Chest Chest palpation & inspection: normal inspection of the chest Resp Effort & Inspection: normal respiratory effort GI Inspection: normal to inspection Palpation: soft, no hepatosplenomegaly, no masses and nontender General: bladder normal to palpation Bimanual Exam- Vagina & Uterus: bladder normal to palpation Skin General: no rashes or lesions noted Neuro Speech: speech normal Gait: normal gait Psych Mood: congruent mood Quality Reporting Tobacco Screening ([facility] 138) Smoking Status: Never smoker Assessment and Plan Assessment and Plan (1) Chronic diarrhea: ?Status:?Chronic ?Plan: 72 yr old female with chronic diarrhea, some improvement with cholestyramine. DDx includes microscopic colitis, bile acid diarrhea, diverticular disease/SCAD,infection, IBS, IBD. Try 1/2 and 1/2 mixture of cholestyramine and psyllium husk Add dicyclomine 10 mg bid Blood tests today, stool tests for infection and inflammation CT abd pel w/ oral and IV EGD and colonoscopy, f/u 2 wks later to discuss bx results She hopes to travel out of state with family in July (2) Anemia: ?Plan: Will get recent lab results from primary care EGD and colonoscopy (3) GERD (gastroesophageal reflux disease): ?Status:?Chronic ?Plan: Continue omeprazole Get EGD to eval for keyes's, gastritis, enteritis ? ? ? Orders: Orders CRP Today K52.9 - Noninfective gastroenteritis and colitis, unspecified ? Erythrocyte Sed Rate Today K52.9 - Noninfective gastroenteritis and colitis, unspecified ? Calprotectin, Stool Today K52.9 - Noninfective gastroenteritis and colitis, unspecified ? ENTERIC PATHOGEN PANEL STOOL Today D84.9 - Immunodeficiency, unspecified, K52.9 - Noninfective gastroenteritis and colitis, unspecified, K58.9 - Irritable bowelsyndrome without diarrhea ? Stool Lactoferrin/WBC Today K52.9 - Noninfective gastroenteritis and colitis, unspecified, K58.9 - Irritable bowel syndrome without diarrhea ? Celiac Disease Profile Today K52.9 - Noninfective gastroenteritis and colitis, unspecified ? CDIFF (PCR) Today K52.9 - Noninfective gastroenteritis and colitis, unspecified ? Comprehensive Metabolic Profil Today K52.9 - Noninfective gastroenteritis and colitis, unspecified ? LDH Today K52.9 - Noninfective gastroenteritis and colitis, unspecified ? CBC W/Diff, Automated Today D64.9 - Anemia, unspecified, K52.9 - Noninfective gastroenteritis and colitis, unspecified ? JENNIFER Comprehensive Panel Today K52.9 - Noninfective gastroenteritis and colitis, unspecified ? ANCA Today K52.9 - Noninfective gastroenteritis and colitis, unspecified ? Immunoglobulins G/A/M/E Today K52.9 - Noninfective gastroenteritis and colitis, unspecified ? SANTI + Protein Elect, Serum Today K52.9 - Noninfective gastroenteritis and colitis, unspecified ? Abdomen/Pelvis WITH Contrast Today R10.30 - Lower abdominal pain, unspecified ? Medications: New dicyclomine 10 mg? PO BID 60 caps 3RF ? ? I have examined the patient and the H&P has been reviewed. There are no clinicalchanges since date of exam. 06/19/22 1047 <Electronically signed by Chapin Underwood DO> Cosigner Signature (if applicable): CC: Dr. Alpesh Marroquin DO; Chapin Underwood DO~ Signed [facility] Work Phone: [phone] 232-737905-04-2023 Procedure [facility] 06-19-2022 Procedure [facility]05-04-2023 Procedure note [facility]05-04-2023 Procedure [facility] 06-18-2022 Telephone encounter Note* Telephone Encounter - Aria Medina LPN - 06/18/2022 10:58 AM EDT Rx loaded Last ov 03/06/22 Next ov 09/03/22 [id number] Miscellaneous Notes* Telephone Encounter - Aria Medina LPN - 06/18/2022 10:58 AM EDT Rx loaded Last ov 03/06/22 Next ov 09/03/22 * Telephone Encounter - Delilah Sheffield - 06/18/2022 10:01 AM EDT Medication name: metFORMIN (Glucophage) 500 MG tablet 360 tablet 0 04/14/2022 Medication dosage: 500 mg (Miligrams Monthly quantity needed: 120 How many day supply requestin days Medication route: oral (PO) Medication administration time(s): 2 times a day (BID) 2 a day If taking medication PRN, reason for taking medication: N/A If this is a controlled substance do you receive this or any other controlled medication from any other doctor or facility: No Ordering provider: Dr. Marroquin Date of last office visit: 03.06.22 Date of next office visit: 09.03.22 Date of last refill: (see medication tab): 04.14.22 Updated/Validated preferred pharmacy: Yes [id number] [address] Patient instructed to contact the pharmacy prior to picking up the medication: Yes documented in this [facility]05-03-2023 Telephone encounter Note* Telephone Encounter - Delilah Sheffield - 06/18/2022 10:01 AM EDT Medication name: metFORMIN (Glucophage) 500 MG tablet 360 tablet 0 04/14/2022 Medication dosage: 500 mg (Miligrams Monthly quantity needed: 120 How many day supply requestin days Medication route: oral (PO) Medication administration time(s): 2 times a day (BID) 2 a day If taking medication PRN, reason for taking medication: N/A If this is a controlled substance do you receive this or any other controlled medication from any other doctor or facility: No Ordering provider: Dr. Marroquin Date of last office visit: 03.06.22 Date of next office visit: 09.03.22 Date of last refill: (see medication tab): 04.14.22 Updated/Validated preferred pharmacy: Yes [id number] [place] [address] Patient instructed to contact the pharmacy prior to picking up the medication: Yes [id number] Telephone encounter Note* Telephone Encounter - Zahida Coto RN - 04/14/2022 11:44 AM EST [id number] Miscellaneous Notes* Telephone Encounter - Zahida Coto RN - 04/14/2022 11:44 AM EST Rx loaded documented in this [facility]02-02-2023 Telephone encounter Note* Telephone Encounter - Debi Mcpherson - 03/20/2022 9:57 AM EST Referral pended for dx and doctor's signature [id number] Miscellaneous Notes* Telephone Encounter - Debi Mcpherson - 03/20/2022 9:57 AM EST Referral pended for dx and doctor's signature * Telephone Encounter - Debi Mcpherson - 03/20/2022 9:56 AM EST Alpesh Marroquin, 03/16/2022 6:34 PM EST Lab is showing an iron deficiency anemia. The #1 cause of that is perhaps GI bleeding. I know she had a colonoscopy 4 years ago but she will need a GI referral to consider upper and lower endoscopy to exclude a GI bleed. There is no signs of B12 or folic acid deficiency. She should continue the supplement indefinitely but needs consultation with GI for the above procedures. Please refer to Dr. Frost who she has seen in the past documented in this [facility]02-02-2023 Telephone encounter Note* Telephone Encounter - Debi Mcpherson - 03/20/2022 9:56 AM EST Alpesh Wang Shravanvikalayne, DO 03/16/2022 6:34 PM EST Lab is showing an iron deficiency anemia. The #1 cause of that is perhaps GI bleeding. I know she had a colonoscopy 4 years ago but she will need a GI referral to consider upper and lower endoscopy to exclude a GI bleed. There is no signs of B12 or folic acid deficiency. She should continue the supplement indefinitely but needs consultation with GI for the above procedures. Please refer to Dr. Frost who she has seen in the past [id number] History of Present illness Narrative* Alpesh Marroquin, DO - 03/06/2022 8:00 AM EST Images from the original note were not included. [facility] [address] [facility] [id number] Visit type: Established Patient Reason for Visit: Follow-up (6 month) Subjective: Patient ID: Cata Ayers is a 72 y.o. female. HPI diabetes and hypertension management. Most markedly patient lost her dear Omi in early January due to complications of chronic renal failure heart failure and diabetes. Her daughter is nearby and very supportive. She admits to intermittent not checking her glucose levels enough butoverall the numbers of been pretty good. Weight is down a few pounds. Denies diaphoresis polyuria polydipsia. No change in her vision or skin. Review of Systems some grieving but not unexpected about. She is generally pretty positive and upbeat. Denies recent earache sore throat or cough. No chest pain palpitations PND orthopnea claudication or edema. No abdominal pain. No heartburn. No change in bowels. No melena or blood. No dysuria frequency. No change in arthralgia. No recent falls or injury. Allergies Allergen Reactions Kiwi Extract Swelling Mouth and lip swelling Other Lisinopril Other reaction(s): Other (See Comments) cough Current Outpatient Medications on File Prior to Visit Medication Sig Dispense Refill cholestyramine (Questran) 4 g packet MIX AND TAKE 1 PACKET BY MOUTH 2 TIMES DAILY. ibuprofen 200 MG tablet Take 200 mg by mouth. metFORMIN (Glucophage) 500 MG tablet Take 2 tablets (1,000 mg) by mouth 2 times daily. 180 tablet 0 [DISCONTINUED] amLODIPine (Norvasc) 5 MG tablet Take 5 mg by mouth daily. [DISCONTINUED] atorvastatin (Lipitor) 10 MG tablet Take 10 mg by mouth daily. [DISCONTINUED] cyanocobalamin (Vitamin B-12) 500 MCG tablet Take 500 mcg by mouth daily. [DISCONTINUED] glimepiride (Amaryl) 4 MG tablet Take 4 mg by mouth 2 times daily. [DISCONTINUED] losartan-hydroCHLOROthiazide (Hyzaar) 100-12.5 MG tablet Take 1 tablet by mouth daily. [DISCONTINUED] omeprazole (PriLOSEC) [address] capsule Take 20 mg by mouth daily. No current facility-administered medications on file prior to visit. Patient Active Problem List Diagnosis History of renal stone Renal cyst Essential hypertension Cystoid macular edema Post-cholecystectomy syndrome B12 deficiency SMILEY-inhibitor cough GERD with esophagitis Cholelithiasis Lumbar disc disease Type 2 diabetes mellitus (HCC) Social History Tobacco Use Smoking status: Never Smokeless tobacco: Never Substance Use Topics Alcohol use: No Past Surgical History: Procedure Laterality Date CATARACT EXTRACTION Bilateral 2013 [facility] COLONOSCOPY 06/2018 Dr Frost- few polyps- due 2023 COLONOSCOPY 2012 [facility] DILATION AND CURETTAGE OF UTERUS HYSTERECTOMY 1982 DUB- simple hyst LAP,[facility] 2006 MENISCECTOMY Right 1979 UPPER GASTROINTESTINAL ENDOSCOPY 2012 neg per [facility] Family History Problem Relation Name Age of Onset Prostate cancer Father age 76 Other ([id number]) Brother MVA 40 No Known Problems Brother No Known Problems Brother Other ([id number]) Brother PAD, smoker- ischemic bowel w/ resection Diabetes Sister oral rx Diabetes Paternal Grandfather Diabetes Maternal Grandfather Diabetes Paternal Grandmother Rheum arthritis Mother mid 50s Heart failure Brother Diabetes Sister oral rx Diabetes Brother insulin, age 74 in 04/08 Diabetes Maternal Grandmother Objective: BP 115/64 (BP Location: Left arm, Patient Position: Sitting, BP Cuff Size: Large adult) Pulse 54 Temp 36.7 C (98.1 F) (Temporal) Ht 5' 3.5 (1.613 m) Wt 178 lb 3.2 oz (80.8 kg) SpO2 100% BMI 31.07 kg/m Physical Exam she appears well. Well-hydrated. No oropharyngeal lesions. Normal eardrums. No neck masses JVD carotid bruits or adenopathy. Reflexes physiologic. Heart is regular without gallops or murmurs or ectopy. Lungs are clear. Abdomen soft nontender without masses or pain. No hepatosplenomegaly bruits or ascites. Femoral pulses good. Feet are warm without skin breakdowns. Pulses are excellen t. No motor or sensory loss evident. Assessment / Plan: Cata was seen today for follow-up. Diagnoses and all orders for this visit: Type 2 diabetes mellitus without complication, without long-term current use of insulin (CMS/HCC) ([facility]) (Primary) Comments: Stable, continue glimepiride and metformin Orders: - Comprehensive metabolic panel; Future - CBC auto differential; Future - Hemoglobin A1c; Future - AMB POC URINE, MICROALBUMIN - Comprehensive metabolic panel - CBC auto differential - Hemoglobin A1c Essential hypertension Comments: Stable, continue amlodipine and losartan Gastroesophageal reflux disease with esophagitis without hemorrhage B12 deficiency - Vitamin B12; Future - Vitamin B12 Hypercholesterolemia Comments: Stable, continue Lipitor and low-fat meals Orders: - Lipid panel; Future - Lipid panel Other orders - amLODIPine (Norvasc) 5 MG tablet; Take 1 tablet (5 mg) by mouth daily. - atorvastatin (Lipitor) 10 MG tablet; Take 1 tablet (10 mg) by mouth daily. - cyanocobalamin (Vitamin B-12) 500 MCG tablet; Take 1 tablet (500 mcg) by mouth daily. - glimepiride (Amaryl) 4 MG tablet; Take 1 tablet (4 mg) by mouth 2 times daily. - losartan-hydroCHLOROthiazide (Hyzaar) 100-12.5 MG tablet; Take 1 tablet by mouth daily. - omeprazole (PriLOSEC) [address] capsule; Take 1 capsule (20 mg) by mouth daily. - Diabetes Foot Exam - Continuous Glucose Monitor Sup kit; Test glucose 4 times daily before meals and at bedtime - Continuous Glucose Monitor Sup misc; Test 4 times daily before meals and at bedtime 12 documented in this [facility]01-11-2023 Telephone encounter Note* Telephone Encounter - Alpesh Marroquin DO - 02/26/2022 5:31 PM EST Refill completed but patient due for checkup. [id number] Miscellaneous Notes* Telephone Encounter - Alpesh Marroquin DO - 02/26/2022 5:31 PM EST Refill completed but patient due for checkup. * Telephone Encounter - Carly Howard MA - 02/26/2022 9:49 AM EST Rx loaded documented in this [facility]01-11-2023 Telephone encounter Note* Telephone Encounter - Carly Howard MA - 02/26/2022 9:49 AM EST Rx loaded [id number] Telephone encounter Note* Telephone Encounter - Delilah Sheffield - 02/24/2022 10:11 AM EST Reason for appointment medications Has patient tested positive for COVID or have a pending COVID test within the past 2 weeks (14 days)? No Has patient been exposed to anyone who tested positive for COVID within the past 2 weeks (14 days)?No Is patient currently having symptoms of cough, fever or shortness of breath? No Advise patient if any of the above changes prior to their appointment, please contact the office immediately. [place] [id number] Miscellaneous Notes* Telephone Encounter - Delilah Sheffield - 02/24/2022 10:11 AM EST Reason for appointment medications Has patient tested positive for COVID or have a pending COVID test within the past 2 weeks (14 days)? No Has patient been exposed to anyone who tested positive for COVID within the past 2 weeks (14 days)?No Is patient currently having symptoms of cough, fever or shortness of breath? No Advise patient if any of the above changes prior to their appointment, please contact the office immediately. [facility] [facility]* Diagnosis Pain in left leg Other specified soft tissue disorders Pain and swelling of lower extremity, left documented in this encounter [facility] Work Phone: Evaluation note* Diagnosis Onset Date Resolution Status Chronic diarrhea chronic GERD (gastroesophageal reflux disease) chronic Anemia noneactive [facility] Work Phone: Evaluation note* Diagnosis Onset Date Resolution Status Anemia acute Chronic diarrhea chronic GERD (gastroesophageal reflux disease) chronic [facility] Work Phone: Evaluation note* Diagnosis Type 2 diabetes mellitus without complication, without long-term current use of insulin ([facility]) ([facility])- Primary Essential hypertension Unspecified essential hypertension AVM (arteriovenous malformation) of colon Adrenal adenoma, left Gastroesophageal reflux disease with esophagitis without hemorrhage Lumbar disc disease Other and unspecified disc disorder of lumbar region Hypercholesterolemia Pure hypercholesterolemia documented in this encounter [facility] [employer] note* Diagnosis Iron deficiency anemia, unspecified iron deficiency anemia type- Primary documented in this encounter [facility] [employer] note* Diagnosis Type 2 diabetes mellitus without complication, without long-term current use of insulin ([facility]) ([facility])- Primary Essential hypertension Unspecified essential hypertension AVM (arteriovenous malformation) of colon Adrenal adenoma, left Gastroesophageal reflux disease with esophagitis without hemorrhage Lumbar disc disease Other and unspecified disc disorder of lumbar region Hypercholesterolemia Pure hypercholesterolemia Iron deficiency anemia, unspecified iron deficiency anemia type documented in this encounter [facility] [facility]* Diagnosis Iron deficiency anemia due to chronic blood loss- Primary Iron deficiency anemia secondary to blood loss (chronic) documented in this encounter [facility] [employer] note* Diagnosis Iron deficiency anemia due to chronic blood loss Iron deficiency anemia secondary to blood loss (chronic) documented in this encounter [facility] [employer] note* Diagnosis Iron deficiency anemia due to chronic blood loss- Primary Iron deficiency anemia secondary to blood loss (chronic) [facility] Diagnosis Viral URI- Primary Acute upper respiratory infections of unspecified site [facility]* Diagnosis Type 2 diabetes mellitus without complication, without long-term current use of insulin ([facility]) (HCC)- Primary Essential hypertension Unspecified essential hypertension Other iron deficiency anemia Post-cholecystectomy syndrome Postcholecystectomy syndrome Simple chronic bronchitis (HCC) Simple chronic bronchitis Iron deficiency anemia, unspecified iron deficiency anemia type [facility]* Diagnosis ADAMSON (dyspnea on exertion)- Primary Other dyspnea and respiratory abnormality Diabetes due to undrl condition w oth diabetic neuro comp ([facility]) Essential hypertension Unspecified essential hypertension [facility] Diagnosis ADAMSON (dyspnea on exertion)- Primary Other dyspnea and respiratory abnormality ADAMSON (dyspnea on exertion) Other dyspnea and respiratory abnormality [facility]* Diagnosis ADAMSON (dyspnea on exertion) Other dyspnea and respiratory abnormality [facility]* Diagnosis Single subsegmental pulmonary embolism without acute cor pulmonale (HCC)- Primary Single subsegmental pulmonary embolism without acute cor pulmonale (HCC) PE (pulmonary thromboembolism) (HCC) Chronic pulmonary embolism Acute deep vein thrombosis (DVT) of popliteal vein of right lower extremity ([facility]) Shortness of breath [facility]* Diagnosis Shortness of breath- Primary Other acute pulmonary embolism without acute cor pulmonale (HCC) [facility]* Diagnosis Other acute pulmonary embolism without acute cor pulmonale (HCC)- Primary Essential hypertension Unspecified essential hypertension Type 2 diabetes mellitus without complication, without long-term current use of insulin ([facility]) (HCC) Gastroesophageal reflux disease with esophagitis without hemorrhage Anemia, unspecified type [facility]* Diagnosis Encounter for subsequent annual wellness visit (AWV) in Medicare patient- Primary Post-cholecystectomy syndrome Postcholecystectomy syndrome Essential hypertension Unspecified essential hypertension Type 2 diabetes mellitus without complication, without long-term current use of insulin ([facility]) (HCC) Pulmonary embolism, other, unspecified chronicity, unspecified whether acute cor pulmonale present (HCC) Acute deep vein thrombosis (DVT) of proximal vein of right lower extremity (HCC) Hyperlipidemia, unspecified hyperlipidemia type Gastroesophageal reflux disease with esophagitis without hemorrhage Routine general medical examination at health care facility Routine general medical examination at a health care facility documented in this encounter [facility] note* Diagnosis Shortness of breath Other acute pulmonary embolism without acute cor pulmonale ([facility]) [facility]* Diagnosis Pulmonary embolism, other, unspecified chronicity, unspecified whether acute cor pulmonale present (HCC)- Primary [facility]* Diagnosis Type 2 diabetes mellitus without complication, without long-term current use of insulin ([facility]) ([facility])- Primary Essential hypertension Unspecified essential hypertension Pulmonary embolism, other, unspecified chronicity, unspecified whether acute cor pulmonale present ([facility]) Hypercholesterolemia Pure hypercholesterolemia Post-cholecystectomy syndrome Postcholecystectomy syndrome Anemia, unspecified type [facility]* Diagnosis Hypochromic anemia- Primary [facility]* Diagnosis Type 2 diabetes mellitus without complication, without long-term current use of insulin ([facility]) ([facility])- Primary Essential hypertension Unspecified essential hypertension Gastroesophageal reflux disease with esophagitis without hemorrhage B12 deficiency Hypercholesterolemia Pure hypercholesterolemia [facility]* Diagnosis Iron deficiency anemia, unspecified iron deficiency anemia type- Primary [facility]* Diagnosis Essential hypertension Unspecified essential hypertension [facility]* Diagnosis Type 2 diabetes mellitus without complication, without long-term current use of insulin ([facility])- Primary Essential hypertension Unspecified essential hypertension Pulmonary embolism, other, unspecified chronicity, unspecified whether acute cor pulmonale present ([facility]) Hypercholesterolemia Pure hypercholesterolemia Gastroesophageal reflux disease with esophagitis without hemorrhage Other iron deficiency anemia Diarrhea due to malabsorption [facility]* Diagnosis Diarrhea, unspecified type- Primary documented [facility] this [facility]* Diagnosis Diarrhea due to malabsorption- Primary documented in this [facility]* Diagnosis Normochromic normocytic anemia- Primary documented in this encounter [facility]* Diagnosis Normochromic normocytic anemia- Primary documented in this encounter [facility]* Diagnosis Anemia, unspecified type- Primary documented in this encounter [facility] note* Diagnosis Anemia, unspecified type- Primary Type 2 diabetes mellitus without complication, without long-term current use of insulin (HCC)- Primary documented in this encounter [facility] note* Diagnosis Type 2 diabetes mellitus without complication, without long-term current use of insulin (HCC)- Primary documented in this encounter [facility] note* Diagnosis Type 2 diabetes mellitus without complication, without long-term current use of insulin (HCC)- Primary Type 2 diabetes mellitus without complication, without long-term current use of insulin (HCC)- Primary Syncope, unspecified syncope type documented in this encounter [facility] note* Diagnosis Type 2 diabetes mellitus without complication, without long-term current use of insulin (HCC)- Primary IgG gammopathy- Primary Monoclonal paraproteinemia documented in this encounter [facility] note* Diagnosis Type 2 diabetes mellitus without complication, without long-term current use of insulin (HCC)- Primary Syncope, unspecified syncope type documented in this encounter [facility] note* Diagnosis Type 2 diabetes mellitus without complication, without long-term current use of insulin (HCC)- Primary Type 2 diabetes mellitus with hyperglycemia, without long-term current use of insulin (HCC)- Primary documented in this encounter [facility] note* Diagnosis Type 2 diabetes mellitus without complication, without long-term current use of insulin (HCC)- Primary Type 2 diabetes mellitus with hyperglycemia, without long-term current use of insulin (HCC)- Primary Pulmonary embolism with acute cor pulmonale, unspecified chronicity, unspecified pulmonary embolism type (HCC)- Primary documented in this encounter [facility] note* Diagnosis Type 2 diabetes mellitus without complication, without long-term current use of insulin (HCC)- Primary Type 2 diabetes mellitus with hyperglycemia, without long-term current use of insulin (HCC)- Primary Elevated serum creatinine- Primary Other nonspecific findings on examination of blood documented in this encounter [facility] note* Diagnosis Type 2 diabetes mellitus without complication, without long-term current use of insulin (HCC)- Primary Type 2 diabetes mellitus with hyperglycemia, without long-term current use of insulin (HCC)- Primary Iron deficiency anemia due to chronic blood loss- Primary Iron deficiency anemia secondary to blood loss (chronic) Vitamin B12 deficiency Other B-complex deficiencies MGUS (monoclonal gammopathy of unknown significance) Monoclonal paraproteinemia documented in this encounter [facility] note* Diagnosis Type 2 diabetes mellitus without complication, without long-term current use of insulin (HCC)- Primary Type 2 diabetes mellitus with hyperglycemia, without long-term current use of insulin (HCC)- Primary Pulmonary embolism with acute cor pulmonale, unspecified chronicity, unspecified pulmonary embolism type (HCC) documented in this encounter [facility] note* Diagnosis Type 2 diabetes mellitus without complication, without long-term current use of insulin (HCC)- Primary Type 2 diabetes mellitus with hyperglycemia, without long-term current use of insulin (HCC)- Primary Iron deficiency anemia due to chronic blood loss- Primary Iron deficiency anemia secondary to blood loss (chronic) Vitamin B12 deficiency Other B-complex deficiencies MGUS (monoclonal gammopathy of unknown significance) Monoclonal paraproteinemia Pulmonary embolism, other, unspecified chronicity, unspecified whether acute cor pulmonale present ([facility]) documented in this encounter [facility] note* Diagnosis Type 2 diabetes mellitus without complication, without long-term current use of insulin (HCC)- Primary Type 2 diabetes mellitus with hyperglycemia, without long-term current use of insulin (HCC)- Primary Pulmonary embolism with acute cor pulmonale, unspecified chronicity, unspecified pulmonary embolism type (HCC) documented in this encounter [facility] note* Diagnosis Type 2 diabetes mellitus without complication, without long-term current use of insulin (HCC)- Primary Type 2 diabetes mellitus with hyperglycemia, without long-term current use of insulin ([facility])- Primary Iron deficiency anemia, unspecified iron deficiency anemia type- Primary Steatorrhea Other specified intestinal malabsorption documented in this encounter [facility] note* Diagnosis Onset Date Resolution Status Admit Date Anemia acute September 27 025 9:16am [facility] Work Phone: Evaluation note* Diagnosis Onset Date Resolution Status Admit Date Anemia acute September 27, 025 9:16am Chronic diarrhea chronic September 162024 9:16am [facility] Work Phone: Evaluation note* Diagnosis Type 2 diabetes mellitus without complication, without long-term current use of insulin ([facility])- Primary Type 2 diabetes mellitus with hyperglycemia, without long-term current use of insulin ([facility])- Primary Iron deficiency anemia, unspecified iron deficiency anemia type- Primary Steatorrhea Other specified intestinal malabsorption documented in this encounter [facility]* Diagnosis Type 2 diabetes mellitus without complication, without long-term current use of insulin (HCC)- Primary Type 2 diabetes mellitus with hyperglycemia, without long-term current use of insulin (HCC)- Primary Iron deficiency anemia, unspecified iron deficiency anemia type- Primary Steatorrhea Other specified intestinal malabsorption [facility]* Attachments The following attachments cannot be sent through Care Everywhere. * Going Home on Blood Thinners (Turkmen) * Pulmonary Embolism (Blood Clot in the Lungs) (Turkmen) [facility] Orders* Endocrinology Location: None Selected [facility] Work Phone: Progress note Author Iman Grullon [facility] Note Date/Time September 27, 2024 10 :00am [facility] [address] [place] [address] OFFICE VISIT Date of Service: 09/27/24 MR#: [id number] Acct: [id number] Name: CATA AYERS Rep #: [id number] 2 : 1950 Provider: SARAH Stark Age/Sex: 74/F Location[place] [facility] Status: Signed Intake Vital Signs 06/10/24 16:33 Height 5 ft 3 in Intake Visit Reasons: Black Stools Chief Complaint: Anemia Allergies kiwi Allergy (Intermediate, Verified 06/10/24 16:35) Swelling lisinopril Allergy (Intermediate, Verified 06/10/24 16:35) Other cat dander (cats) Allergy (Verified 06/10/24 16:40) Itching Medications ?Medication ?Instructions ?Recorded ?Confirmed ?Type amlodipine 5 mg tablet 5 mg PO DAILY 04/02/2207/16 History atorvastatin 10 mg tablet 10 mg PO DAILY 04/02/2209/16 History glimepiride 4 mg tablet 4 mg PO DAILY 04/02/2209/27 History mecobalamin (vitamin B12) 500 mcg 500 mcg PO DAILY 09/27/24 History chewable tablet omeprazole 40 mg capsule,delayed 40 mg PO DAILY 09/27/24 History release losartan 100 1 tab PO DAILY 06/17/2209/16 History mg-hydrochlorothiazide 12.5 mg tablet apixaban 2.5 mg tablet (Eliquis) 2.5 mg PO BID 5 09/27/24 History empagliflozin 25 mg tablet 25 mg PO QAM 09/27/2409/27 History (Jardiance) ferrous sulfate 325 mg (65 mg 325 mg PO BID 09/27/24 0 09/27/24 History iron) tablet Have you fallen in the past year?: Yes Nurse's Note: OV 09/27/24 Pt here to f/u with ER visit. Pt reports dark formed stools. Denies nausea, vomiting, abdominal pain, constipation, diarrhea and bloody stools. Pt reports she stopped taking metformin and her diarrhea stopped. Continues omeprazole daily. [facility] Medical History Wears dentures Wears glasses Post-menopausal Diabetes Arthritis Kidney stones Fatty liver Anemia High cholesterol Dietary restriction Gastric reflux Non-smoker History of pain when walking History of edema Hypercholesteremia Type 2 diabetes mellitus Lumbar disc disease Cholelithiasis GERD (gastroesophageal reflux disease) Vitamin B12 deficiency Cystoid macular edema HTN (hypertension) Renal cyst Surgical History History of partial hysterectomy History of cholecystectomy Family History Father Prostate cancer Brother Hx of resection of large bowel PAD (peripheral artery disease) Mother Rheumatoid arthritis Sister Diabetes Brother Diabetes Social History Smoking Status: Never smoker alcohol intake: never HPI HPI Chief Complaint: Anemia Details: CATA AYERS, is a 74 F who presents to the office today for reestablishment. [facility] established in 2022 for chronic diarrhea, anemia and GERD. EGD 5.06.08 - Normal esophagus. - Normal stomach. - Small hiatal hernia. - Erythematous duodenopathy. Biopsied Colonoscopy 5.06.08 - Congested mucosa in the sigmoid colon, at the splenic flexure, at the hepatic flexure and in the ascending colon. Biopsied. - One bleeding colonic angiodysplastic lesion. Treated with a monopolar probe. - Two bleeding angiodysplastic lesions in the ileum. Treated with a heater probe. OV 6.6.23 for f/u after endoscopy. Continue PPI, cholestyramine and psyllium OV 8.12.25 here for re establishment. PMHx of MGUS, iron def anemia, PE and DVT.Pt seen by her call manager who recommended f/u with GI for persistent anemia. Patient was on oral iron twice a day however her anemia was refractory. She hashad 1 iron infusion. She does notice she is less fatigued now. She does not notice any blood in her stool. When she was oral and oral iron her stools were black. She is no longer having any diarrhea after stopping metformin. She has normal bowel movements with no constipation. ROS Const Constitutional: Positive for fatigue; No fever(s) or weight change ENT ENT: No difficulty swallowing Gastro GI: No abdominal pain, belching, bloating, change in bowel habits, change in stool character, coffee ground emesis, constipation, cramping, diarrhea, heartburn, difficulty swallowing, feeling full early, excessive flatus, incontinent of stools, Vomiting blood/hematemesis, Blood in stool, loose stools,Black,tarry stools, nausea/dyspepsia, pain with swallowing, vomiting or other Musc Musculoskeletal: Positive for back pain, Arthritis, sciatica and restless legs; No joint pain Skin Skin: No yellowing of the eye or itchy eyes Neuro Neurology: Positive for restless legs Psych Psychiatric: No anxiety and No depression Endo Endocrine: Positive for fatigue; No weight change Aller/Imm Allergy/Immunologic: No itchy eyes Alexsander/Lymp Hematologic/Lymphatic: No easy bleeding or easy bruising Exam Const General: cooperative, healthy appearing and comfortable Orientation: alert [facility] Head: normal to inspection Eyes General: appearance normal, both eyes and all related structures Neck Neck: normal visual inspection Chest Chest palpation & inspection: normal inspection of the chest Resp Effort & Inspection: normal respiratory effort Cardio Rate: regular rate Rhythm: regular rhythm GI Inspection: normal to inspection Auscultation: normal bowel sounds Palpation: soft, not firm, no guarding and nontender Assessment and Plan Assessment and Plan (1) Anemia: Status: Acute (2) Chronic diarrhea: Status: Chronic Plan: Cata is a 74-year-old female patient here today for reestablishment with the clinic. Patient previously seen in our office in 2022 for issues with anemia and diarrhea. Colonoscopy and EGD in 2022 showing AVMs in the colon. Since then she has been seeing her call manager with downtrending hemoglobin over the past month. Iron deficiency anemia was refractory to oral iron supplementation. She was started on iron infusion and is feeling less fatigued. She is scheduled for 2 more infusions in the future. Patient's call manager did recommend repeating endoscopy. She was scheduled for this today. I have also ordered CBC and fecal occult blood test. Patient's loose stool resolved with discontinuation of metformin. She was started on Jardiance instead however her diabetes is not responding as well to this. She wishes to be referred to endocrinology. - Colonoscopy and EGD - Repeat CBC - Fecal occult blood test - Follow-up after procedure Orders: Orders CBC W/Diff, Automated Today D64.9 - Anemia, unspecified Stool Occult Blood iFOB Today D64.9 - Anemia, unspecified Coding Level of Care Code Off vis,est,level 3 Diagnoses Anemia D64.9 Chronic diarrhea K52.9 Clinical Quality Measures Falls Risk Screening/Assistive Devices Have you fallen in the past year?: Yes 09/27/24 1007 <Electronically signed by Iman SMITH> Date _ Iman SMITH Cosigner Signature: Date (if applicable) CC: ~ [facility] Work Phone: Reason for referral (narrative)* Consultation (Routine) - Pending Review Specialty Diagnoses / Procedures Referred By Costa georges Referred To Contact Hematology and Oncology Diagnoses Iron deficiency anemia, unspecified iron deficiency anemia type Procedures ND OFFICE/OUTPATIENT [facility] 60-74 MINUTES Alpesh Marroquin, [facility] [place] [address] Harry Serrano DO [address] [place] [address] Referral ID Status Reason Start Date Expiration Date Visits Requested Visits Authorized [id number] Pending Review Specialty Services Required 09/14/2022 09/14/2023 1 1 [facility] Consultation (Routine) - Pending Review Specialty Diagnoses / Procedures Referred By Contac t Referred To Contact Hematology and Oncology Diagnoses Iron deficiency anemia, unspecified iron deficiency anemia type Procedures ND OFFICE/OUTPATIENT [facility] 60-74 MINUTES Alpesh Marroquin DO [address] [place] [address] Argentina Shah [address], [facility] [address] Referral ID Status Reason Start Date Expiration Date Visits Requested Visits Authorized [id number] Pending Review Specialty Services Required 09/19/2022 09/19/2023 1 1 [facility] (narrative)* Consultation (Routine) - Pending Review Specialty Diagnoses / Procedures Referred By Contac t Referred To Contact Gastroenterology Diagnoses Iron deficiency anemia, unspecified iron deficiency anemia type Procedures ND OFFICE/OUTPATIENT [facility] 60-74 MINUTES Alpesh Marroquin DO [address] [place] [address] Elie Frost DO [address] [facility] [address] [place] [address] Referral ID Status Reason Start Date Expiration Date Visits Requested Visits Authorized [id number] Pending Review Specialty Services Required 03/20/2022 03/20/2023 1 1 [facility] (narrative)No reason for referral information [facility] Work Phone: Reason for visit Narrative* Cardiology (Routine) - Closed Specialty Diagnoses / Procedures Referred By Costa t Referred To Contact Cardiology Diagnoses Syncope, unspecified syncope type Procedures Cardiac event monitor (14 days) ND XTRNL ECG REC<48 HRS RECORDING ND XTRNL ECG REC<48 HRS SCANNING A/R ND XTRNL ECG REC<48 HRS RVW&INTERPJ PHYS/QHP ND XTRNL MOBILE CV TELEMETRY W/I&REPORT 30 DAYS ND XTRNL MOBILE CV TELEMETRY W/TECHNICAL SUPPORT Sada Mace PA-C [address] [place] [address] [address] [place] [address] Phone: tel: fax: Referral ID Status Reason Start Date Expiration Date Visits Re quested Visits Authorized [id number] Closed 06/14/2024 06/09/2025 1 1 [facility] Chief Complaint and Reason for Visit Chief Complaint PFIZER VACCINE Chief Complaint Anemia LOWER ABDOMINAL PAIN LOWER ABDOMINAL PAIN Reason for Visit Chronic diarrhea GERD (gastroesophageal reflux disease) Anemia Chief Complaint 2 WK FU Reason for Visit Anemia Chronic diarrhea GERD (gastroesophageal reflux disease) Chief Complaint Admit Date general June 10, 2024 4:3 0pm Black Stools September 27, 2024 9: 16am Reason for Visit Admit Date Anemia September 27, 2024 9: 16am Chief Complaint Admit Date general June 10, 2024 4:3 0pm Black Stools September 27, 2024 9: 16am E ORDERS September 27, 2024 10 :06am Reason for Visit Admit Date Anemia September 27, 2024 9: 16am Chronic diarrhea September 27, 2024 9: 16am Assessments No Assessments Information Available Reason for Referral Specialty Diagnoses / Procedures Referred By Costa georges Referred To Contact Radiology Diagnoses Pain and swelling of lower extremity, left Procedures VL DUP LOWER EXTREMITY VENOUS LEFT Martha Trivedi APRN - RANDA [address] [facility] [place] [address] [place] [address] Referral ID Status Reason Start Date Expiration Date Visits Re quested Visits Authorized [id number] Open 05/22/2021 05/22/2022 1 1 Specialty Diagnoses / Procedures Referred By Contac t Referred To Contact Radiology Diagnoses ADAMSON (dyspnea on exertion) Procedures CT chest angiogram w and/or wo IV contrast Alpesh Marroquin F, DO [address] [place] [address] Referral ID Status Reason Start Date Expiration Date Visits Re quested Visits Authorized [id number] Closed 05/01/2023 04/30/2024 1 1 Specialty Diagnoses / Procedures Referred By Contac t Referred To Contact Cardiology Diagnoses Shortness of breath Other acute pulmonary embolism without acute cor pulmonale (HCC) Procedures Transthoracic echocardiogram (TTE) complete with contrast, bubble, strain, and 3D PRN ND ECHO TTHRC R-T 2D W/WOM-MODE COMPL SPEC&COLR D ND TTE W OR WO FOL WCON,DOPPLER Ayaan Lara MD [address] [place] [address] Referral ID Status Reason Start Date Expiration Date V isits Requested Visits Authorized [id number] Pending Review 05/15/2023 05/14/2024 1 1 Referral ID Status Reason Start Date Expiration Date Visits Re quested Visits Authorized [id number] Closed 05/15/2023 05/14/2024 1 1 Advance Directives No Advanced Directives Records FoundDocuments on File Type Date Recorded 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 Byproducts Extractor Expl anation ACP-Advance Directive ACP-Power of Morning Show Producer Latest Code Status on File Code Status Date Activated Date Inactivated Comments Full Code 06/18/2018 8:10 AM 06/22/2018 2:37 AM Full Code 07/28/2017 10:39 AM 07/30/2017 4:23 PM Advance Directive Response Recorded Date/ Time Living Will No June 17, 2022 3: 24pm Power of Morning Show Producer No June 17, 2022 3:24pm Latest Code Status on File Code Status Date Activated Date Inactivated Comments DNR-CCA 05/01/2023 7:19 PM Question Answer Comments ICU transfer: Yes Intubation: Yes Latest Code Status on File Code Status Date Activated Date Inactivated Comments DNR-CCA 05/01/2023 7:19 PM 05/02/2023 6:30 PM Question Answer Comments ICU transfer: Yes Intubation: Yes Latest Code Status on File Code Status Date Activated Date Inactivated Comments DNR-CCA 05/01/2023 7:19 PM 05/02/2023 6:30 PM Question Answer Comments ICU transfer: Yes Intubation: Yes Latest Code Status on File Code Status Date Activated Date Inactivated Comments DNR-CCA 05/01/2023 7:19 PM 05/02/2023 6:30 PM Question Answer Comments ICU transfer: Yes Intubation: Yes Date Activated Date Inactivated Comments 05/01/2023 7:19 PM 05/02/2023 6:30 PM Question Answer Comments ICU transfer: Yes Intubation: Yes Date Activated Date Inactivated Comments 05/01/2023 7:19 PM 05/02/2023 6:30 PM Question Answer Comments ICU transfer: Yes Intubation: Yes Advance Directive Response Recorded Date/ Time Do you have a Healthcare Power of Morning Show Producer? Yes June 10, 2024 4:41pm Name of Medical Power of Morning Show Producer Hollie June 10, 2024 4:41pm Summary Purpose Family History No Family History Records Found Relationship Condition Age at Onset Recorded Date/T ijeoma father Malignant neoplasm of prostate Unknown brother History of resection of large bowel Unkno wn Peripheral arterial disease Unknown mother Rheumatoid arthritis Unknown sister Diabetes mellitus Unknown brother Diabetes mellitus Unknown Additional Source Comments Care Teams (unrecognized sec tion and content) Airveyor Operator Relationship Specialty Start Date End Date Alpesh Marroquin DO [address] [place] [id number] PCP - General Family Medicine 12/28/14 Team Status: Active Member Role Status Dates Dr. Alpesh Marroquin DO Primary Care Provider Active Team Status: Inactive Member Role Status Dates Dr. Alpesh Marroquin DO Primary Care Provider, Referr ing Provider Active Debi Spaulding RETAIL DISTRICT MANAGER, RETAIL DISTRICT MANAGER-C Attending Provider Active Team Status: Inactive Member Role Status Dates Dr. Alpesh Marroquin DO Primary Care Provider Active Debi Spaulding RETAIL DISTRICT MANAGER, RETAIL DISTRICT MANAGER-C Attending Provider, Referrin g Provider Active Team Status: Active Member Role Status Dates Dr. Alpesh Marroquin DO Primary Care Provider Active Debi Spaulding NP, RETAIL DISTRICT MANAGER-C Attending Provider, Referrin g Provider Active Team Status: Active Member Role Status Dates Dr. Alpesh Marroquin DO Primary Care Provider Active Debi Spaulding RETAIL DISTRICT MANAGER, RETAIL DISTRICT MANAGER-C Attending Provider Active Team Status: Inactive Member Role Status Dates Dr. Alpesh Marroquin , Primary Care Provider Active Debi Sapulding RETAIL DISTRICT MANAGER, RETAIL DISTRICT MANAGER-C Attending Provider Active Airveyor Operator Relationship Specialty Start Date End Date Shravandimas Alpesh Wang, [address] [place] [address] PCP - General 07/17/18 Team Status: Active Member Role Status Dates Dr. Alpesh Marroquin , DO Primary Care Provider, Referr ing Provider Active Dr. Chapin Underwood , DO Attending Provider, Other Prov ider Active Team Status: Inactive Member Role Status Dates Dr. Alpesh Marroquin , DO Primary Care Provider, Referr ing Provider Active Dr. Chapin Underwood , DO Attending Provider Active Airveyor Operator Relationship Specialty Start Date End Date Charlylayne Alpesh Wang, [address] [place] [address] PCP - General 07/17/18 Airveyor Operator Relationship Specialty Start Date End Date Shravandimas Alpesh Wang, [address] [place] [address] PCP - General 07/17/18 Airveyor Operator Relationship Specialty Start Date End Date CharlylayneAlpesh [address] [place] [address] PCP - General 07/17/18 Airveyor Operator Relationship Specialty Start Date End Date Lopez Alpesh Wang DO [address] [place] [address] PCP - General 07/17/18 Airveyor Operator Relationship Specialty Start Date End Date Lopez Alpesh Wang, DO [address] [place] [address] PCP - General 07/17/18 Harry Serrano DO [facility] [place] [address] Consulting Physician Hematology and Oncology 10/07/22 Airveyor Operator Relationship Specialty Start Date End Date Lopez Alpesh Wang, DO [address] [place] [id number] PCP - General 07/17/18 Harry Serrano, [address] [place] [address] Consulting Physician Hematology and Oncology 10/07/22 Airveyor Operator Relationship Specialty Start Date End Date Alpesh Marroquin Kathleen, DO [address] [place] [phone] PCP - General 07/17/18 Harry Serrano, DO [address] [place] [address] Consulting Physician Hematology and Oncology 10/07/22 Airveyor Operator Relationship Specialty Start Date End Date Alpesh Marroquin Kathleen, DO [address] [place] [phone] PCP - General 07/17/18 Harry Serrano, DO [address] [place] [address] Consulting Physician Hematology and Oncology 10/07/22 Airveyor Operator Relationship Specialty Start Date End Date Alpesh Marroquin Kathleen, DO [address] [place] [phone] PCP - General 07/17/18 Harry Serrano, [address] [place] [address] Consulting Physician Hematology and Oncology 10/07/22 Airveyor Operator Relationship Specialty Start Date End Date Alpesh Marroquin, DO [address] [place] [phone] PCP - General 07/17/18 Harry Serrano, DO [address] [place] [address] Consulting Physician Hematology and Oncology 10/07/22 Airveyor Operator Relationship Specialty Start Date End Date Alpesh Marroquin, DO [address] [place] [phone] PCP - General 07/17/18 Harry Serrano, DO [address] [place] [address] Consulting Physician Hematology and Oncology 10/07/22 Airveyor Operator Relationship Specialty Start Date End Date Alpesh Marroquin, DO [address] [place] [address] PCP - General 07/17/18 Harry Serrano, DO [address] [place], [place] [id number] Consulting Physician Hematology and Oncology 10/07/22 Airveyor Operator Relationship Specialty Start Date End Date Alpesh Marroquni, DO [address] [place] [address] PCP - General 07/17/18 Harry Serrano DO [address] [place], [place] [phone] Consulting Physician Hematology and Oncology 10/07/22 Airveyor Operator Relationship Specialty Start Date End Date Alpesh Marroquin, DO [address] [place] [phone] PCP - General 07/17/18 Harry Serrano DO [address] [place] [address] Consulting Physician Hematology and Oncology 10/07/22 Airveyor Operator Relationship Specialty Start Date End Date Alpesh Marroquin, DO [address] [place] [phone] PCP - General 07/17/18 Harry Serrano, [address] [place] [address] Consulting Physician Hematology and Oncology 10/07/22 Airveyor Operator Relationship Specialty Start Date End Date Alpesh Marroquin, DO [address] [place] [address] PCP - General 07/17/18 Harry Serrano DO [address] [place] [address] Consulting Physician Hematology and Oncology 10/07/22 Airveyor Operator Relationship Specialty Start Date End Date Alpesh Marroquin, DO [address] [place] [phone] PCP - General 07/17/18 Harry Serrano DO [address] [place] [address] Consulting Physician Hematology and Oncology 10/07/22 Airveyor Operator Relationship Specialty Start Date End Date Alpesh Marroquin, [address] [place] [phone] PCP - General 07/17/18 Harry Serrano DO [address] [place] [address] Consulting Physician Hematology and Oncology 10/07/22 Airveyor Operator Relationship Specialty Start Date End Date Alpesh Marroquin, [address] [place] [address] PCP - General 07/17/18 Harry Serrano DO [address] [place] [address] Consulting Physician Hematology and Oncology 10/07/22 Airveyor Operator Relationship Specialty Start Date End Date Alpesh Marroquin, DO [address] [place] [phone] PCP - General 07/17/18 Harry Serrano DO [address] [place] [address] Consulting Physician Hematology and Oncology 10/07/22 Airveyor Operator Relationship Specialty Start Date End Date Alpesh Marroquin DO [address] [place] [address] PCP - General 07/17/18 Harry Serrano DO [address] [place] [address] Consulting Physician Hematology and Oncology 10/07/22 Airveyor Operator Relationship Specialty Start Date End Date Lopez Alpesh Wang, DO [address] [place] [phone] PCP - General 07/17/18 Harry Serrano, [address] [place] [address] Consulting Physician Hematology and Oncology 10/07/22 Airveyor Operator Relationship Specialty Start Date End Date Lopez Alpesh Wang, DO [address] [place] [phone] PCP - General 07/17/18 Harry Serrano, DO [address] [place] [address] Consulting Physician Hematology and Oncology 10/07/22 Airveyor Operator Relationship Specialty Start Date End Date Alpesh Marroquin Kathleen, DO [address] [place] [phone] PCP - General 07/17/18 Harry Serrano, [address] [place], [place] [phone] Consulting Physician Hematology and Oncology 10/07/22 Airveyor Operator Relationship Specialty Start Date End Date Alpesh Marroquin, DO [address] [place] [address] PCP - General 07/17/18 Airveyor Operator Relationship Specialty Start Date End Date Alpesh Marroquin, DO [address] [place] [address] PCP - General 07/17/18 Airveyor Operator Relationship Specialty Start Date End Date Alpesh Marroquin, DO [address] [place] [address] PCP - General 07/17/18 Airveyor Operator Relationship Specialty Start Date End Date Alpesh Marroquin, DO [address] [place] [address] PCP - General 07/17/18 Airveyor Operator Relationship Specialty Start Date End Date Alpesh Marroquin, DO [address] [place] [address] PCP - General 07/17/18 Airveyor Operator Relationship Specialty Start Date End Date Alpesh Marroquin, DO [address] [place] [address] PCP - General 07/17/18 Airveyor Operator Relationship Specialty Start Date End Date Alpesh Marroquin, DO [address] [place] [address] PCP - General 07/17/18 Harry Serrano DO [address] [place] [address] Consulting Physician Hematology and Oncology 10/07/22 Airveyor Operator Relationship Specialty Start Date End Date Alpesh Marroquin, DO [address] [place] [phone] PCP - General 07/17/18 Harry Serrano DO [address] [place] [address] Consulting Physician Hematology and Oncology 10/07/22 Airveyor Operator Relationship Specialty Start Date End Date Alpesh Marroquin, DO [address] [place] [phone] PCP - General 07/17/18 Harry Serrano DO [address] [place] [address] Consulting Physician Hematology and Oncology 10/07/22 Airveyor Operator Relationship Specialty Start Date End Date Alpesh Marroquin, DO [address] [place] [phone] PCP - General 07/17/18 Harry Serrano, [address] [place] [address] Consulting Physician Hematology and Oncology 10/07/22 Airveyor Operator Relationship Specialty Start Date End Date Alpesh Marroquin, DO [address] [place] [phone] PCP - General 07/17/18 Harry Serrano, [address] [place] [address] Consulting Physician Hematology and Oncology 10/07/22 Airveyor Operator Relationship Specialty Start Date End Date Alpesh Marroquin F, DO [address] [place] [address] PCP - General 07/17/18 Harry Serrano DO [address] [place], [place] [id number] Consulting Physician Hematology and Oncology 10/07/22 Airveyor Operator Relationship Specialty Start Date End Date Lopez Alpesh Wang, DO [address] [place] [phone] PCP - General 07/17/18 Harry Serrano, [address] [place] [address] Consulting Physician Hematology and Oncology 10/07/22 Airveyor Operator Relationship Specialty Start Date End Date Lopez Alpesh Wang, DO [address] [place] [phone] PCP - General 07/17/18 Harry Serrano DO [address] [place] [address] Consulting Physician Hematology and Oncology 10/07/22 Airveyor Operator Relationship Specialty Start Date End Date Lopez Alpesh Wang, DO [address] [place] [phone] PCP - General 07/17/18 Harry Serrano, [address] [place], [place] [phone] Consulting Physician Hematology and Oncology 10/07/22 Airveyor Operator Relationship Specialty Start Date End Date Alpesh Marroquin Kathleen, DO [address] [place] [address] PCP - General 07/17/18 Harry Serrano DO [address] [place], [place] [phone] Consulting Physician Hematology and Oncology 10/07/22 Airveyor Operator Relationship Specialty Start Date End Date Alpesh Marroquin, DO [address] [place] [address] PCP - General 07/17/18 Harry Serrano DO [address] [place] [address] Consulting Physician Hematology and Oncology 10/07/22 Airveyor Operator Relationship Specialty Start Date End Date Alpesh Marroquin, DO [address] [place] [phone] PCP - General 07/17/18 Harry Serrano DO [address] [place] [address] Consulting Physician Hematology and Oncology 10/07/22 Airveyor Operator Relationship Specialty Start Date End Date Alpesh Marroquin, DO [address] [place] [phone] PCP - General 07/17/18 Harry Serrano DO [address] [place], [place] [phone] Consulting Physician Hematology and Oncology 10/07/22 Airveyor Operator Relationship Specialty Start Date End Date Alpesh Marroquin DO [address] [place] [phone] PCP - General 07/17/18 Harry Serrano DO [address] [place], [place] [phone] Consulting Physician Hematology and Oncology 10/07/22 Airveyor Operator Relationship Specialty Start Date End Date Alpesh Marroquin, [address] [place] [phone] PCP - General 07/17/18 Harry Serrano DO [address] [place] [address] Consulting Physician Hematology and Oncology 10/07/22 Airveyor Operator Relationship Specialty Start Date End Date Alpesh Marroquin, [address] [place] [address] PCP - General 07/17/18 Harry Serrano DO [address] [place] [address] Consulting Physician Hematology and Oncology 10/07/22 Airveyor Operator Relationship Specialty Start Date End Date Alpesh Marroquin, [address] [place] [phone] PCP - General 07/17/18 Harry Serrano DO [address] [place], [place] [id number] Consulting Physician Hematology and Oncology 10/07/22 Airveyor Operator Relationship Specialty Start Date End Date Alpesh Marroquin DO [address] [place] [phone] PCP - General 07/17/18 Harry Serrano DO [address] [place] [address] Consulting Physician Hematology and Oncology 10/07/22 Airveyor Operator Relationship Specialty Start Date End Date Alpesh Marroquin DO [address] [place] [phone] PCP - General 07/17/18 Harry Serrano DO [address] [place], [place] [phone] Consulting Physician Hematology and Oncology 10/07/22 Airveyor Operator Relationship Specialty Start Date End Date Alpesh Marroquin DO [address] [place] [address] PCP - General 07/17/18 Harry Serrano DO [address] [place] [address] Consulting Physician Hematology and Oncology 10/07/22 Team Status: Active Member Role/Relationship Status Dates Dr. Alpesh Marroquin DO Primary Care Provider Active Team Status: Inactive Member Role/Relationship Status Dates Dr. Alpesh Marroquin DO Primary Care Provider Active Start: June 10, 2024 End: June 10, 2024 Dr. Kendrick Nunes DO Attending Provider Active Start : June 10, 2024 End: June 10, 2024 Dr. Kendrick Nunes DO Emergency Provider Active Start : June 10, 2024 End: June 10, 2024 Team Status: Inactive Member Role/Relationship Status Dates Dr. Alpesh Marroquin DO Primary Care Provider Active Start: September 27, 2024 End: September 27, 2024 Dr. Alpesh Marroquin DO Referring Provider Active Start: September 27, 2024 End: September 27, 2024 SARAH Stark Attending Provider Active Start: September 27, 2024 End: September 27, 2024 Team Status: Active Member Role/Relationship Status Dates Dr. Alpesh Marroquin DO Primary Care Provider Active Start: September 27, 2024 SARAH Stark Attending Provider Active Start: September 27, 2024 SARAH Stark Referring Provider Active Start: September 27, 2024 Airveyor Operator Relationship Specialty Start Date End Date Alpesh Marroquin DO [address] [place] [address] PCP - General 07/17/18 Harry Serrano DO [address] [place], [place] [address] Consulting Physician Hematology and Oncology 10/07/22 Team Status: Inactive Member Role/Relationship Status Dates Dr. Alpesh Marroquin DO Primary Care Provider Active Start: September 27, 2024 End: September 27, 2024 SARAH Stark Attending Provider Active Start: September 27, 2024 End: September 27, 2024 SARAH Stark Referring Provider Active Start: September 27, 2024 End: September 27, 2024 Airveyor Operator Relationship Specialty Start Date End Date Alpesh Marroquin DO [address] [place] [phone] PCP - General 07/17/18 Harry Serrano DO [address] [place], [place] [phone] Consulting Physician Hematology and Oncology 10/07/22 Airveyor Operator Relationship Specialty Start Date End Date Lopez Alpesh Wang [address] [place] [phone] PCP - General 07/17/18 Harry Serrano DO [address] [place] [address] Consulting Physician Hematology and Oncology 10/07/22 INFORMATION SOURCE (unrecogn ized section and content) DATE CREATED AUTHOR 05/30/2021 [employer] DATE CREATED AUTHOR AUTHOR'S ORGANIZ ATION 10/10/[address] [facility] DATE CREATED AUTHOR AUTHOR'S ORGANIZ ATION 11/09/2024 [facility] Goals (unrecognized section and content) Goals may be documented in a n alternate sectionGoals may be documented in an alternate sectionGoals may be documented in an alternate sectionGoals may be documented in an alternate sectionGoals may be documented in an alternate sectionGoals may be documented in an alternate section Reason for Visit (unrecogniz ed section and content) Reason Comments OP Infusion Specialty Diagnoses / Procedures Referred By Costa georges Referred To Contact Diagnoses Iron deficiency anemia, unspecified iron deficiency anemia type Steatorrhea Harry Serrano DO [address] [place] [address] Phone: tel: fax: Harry Serrano DO [address] [place] [address] Phone: tel: fax: Referral ID Status Reason Start Date Expiration Date V isits Requested Visits Authorized [id number] Pending Review 09/12/2024 09/07/2025 1 1 Reason Onset Date Comments Med Refill 06/18/2022 Reason Onset Date Comments Med Refill 07/15/2022 Reason Comments Follow-up 6 month med check Reason Onset Date Comments Referral 09/11/2022 [facility] Reason Comments Follow-up 6 month med check Reason Onset Date Comments Referral 09/23/2022 Reason Comments Consult Reason Onset Date Comments Results 10/08/2022 Reason Comments Anemia Reason Comments Cough Reason Comments Med Refill Reason Comments Follow-up 6 month med check Cough Coughing since Zeb tmas Reason Onset Date Comments Medication Problem 04/08/2023 Reason Comments Fatigue Increased Reason Onset Date Comments Orders 05/01/2023 CT Chest Specialty Diagnoses / Procedures Referred By Contac t Referred To Contact Radiology Diagnoses ADAMSON (dyspnea on exertion) Procedures CT chest angiogram w and/or wo IV contrast Alpesh Marroquin F, DO [address] [facility] [address] [place] [address] Referral ID Status Reason Start Date Expiration Date Visits Re quested Visits Authorized [id number] Closed 05/01/2023 04/30/2024 1 1 Reason Comments Shortness of Breath Patient arrives [facility] via car with complaints of blood clots in her lungs. Patient states that she is short of breath on exertion so was seen at [facility]. Had a CT of her chest done and was informed that she needs to stay overnight for blood clots in her lungs. Does not take blood thinners. Has some dull chest pain when she exerts herself. Specialty Diagnoses / Procedures Referred By Contjamil t Referred To Contact Diagnoses Shortness of breath PE (pulmonary thromboembolism) (HCC) Acute deep vein thrombosis (DVT) of popliteal vein of right lower extremity (HCC) Single subsegmental pulmonary embolism without acute cor pulmonale (HCC) Procedures . Vanessa Byrnes MD [address] [place] [address] [facility] [address] [place] [address] Referral ID Status Reason Start Date Expiration Date Visits Re quested Visits Authorized [id number] 1 1 Reason Comments Hospital Follow-up Reason Comments Hospital Follow-up Blood clots Reason Comments Medicare Annual Wellness Visit Subsequiván t Specialty Diagnoses / Procedures Referred By Contac t Referred To Contact Cardiology Diagnoses Shortness of breath Other acute pulmonary embolism without acute cor pulmonale (HCC) Procedures Transthoracic echocardiogram (TTE) complete with contrast, bubble, strain, and 3D PRN ND ECHO TTHRC R-T 2D W/WOM-MODE COMPL SPEC&COLR D ND TTE W OR WO FOL SUMAN,Ayaan Samson MD [address] [facility] [address] [place] [address] Referral ID Status Reason Start Date Expiration Date Visits Re quested Visits Authorized [id number] Closed 05/15/2023 05/14/2024 1 1 Reason Comments 6 Month Follow-up Reason Comments Follow-up Med check Reason Onset Date Comments Covid Screened 02/24/2022 Reason Onset Date Comments Med Refill 02/26/2022 Reason Comments Follow-up 6 month Reason Onset Date Comments Referral 03/20/2022 Dr Frost Reason Onset Date Comments Med Refill 04/14/2022 Reason Comments Blood Pressure Check Reason Comments Follow-up 4 month follow up Reason Onset Date Comments Referral 05/26/2024 [facility] Reason Onset Date Comments Medication Problem 06/06/2024 Reason Comments Blood Sugar Problem Patient stopped taki ng her metformin due to diarrhea 05/31/24 and now having increasing blood surePatient also stopped glimepiride and 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 because she didn't want to take another medication Reason Onset Date Comments Medication Reaction 06/13/2024 Reason Comments ER Follow-up For medication react ion Reason Onset Date Comments Referral 06/14/2024 Dr Serrano Reason Comments Follow-up 6 wk change in dm me dication Reason Onset Date Comments Med Refill 07/18/2024 Reason Comments Follow-up Reason Onset Date Comments Medication Question 07/19/2024 Scheduled Active and Recently Administ ered Medications (unrecognized section and content) Medication Order 02/08/2023 02/09/2023 02/10/2023 acetaminophen (Tylenol) tablet 1,000 mg (COMPLETED) 1,000 mg, Oral, Once, On Thu02/10/23 at 1645, For 1 dose, Maximum dose of acetaminophen is 4000 mg from all sources in 24 hours. 1701 (Given - Provid er: Harry Johnson RN) benzonatate (Tessalon) capsule 100 mg (COMPLETED) 100 mg, Oral, Once, On 12/26/23 at 1645, For 1 dose, Do not crush or chew. 1701 (Given - Provid er: Harry Johnson RN) Scheduled Medication Order 04/30/2023 05/01/2023 05/02/2023 amLODIPine (Norvasc) tablet 5 mg 5 mg, Oral, Daily, First dose on Thu05/01/23 at 1932008 (Not Given - Provider: Daryl Stone RN - Reason: Patient/family refused - Comment: took already at morning) 0858 (Given - Provider: Mercedes Tena, JABARI) apixaban (Eliquis) tablet 10 mg 10 mg, Oral, 2 times daily, First dose on Thu05/01/23 at 1705, For 7 days, Anticoagulant 1706 (Given - Provider: Vesna Martinez RN) 0859 (Given - Provider: Mercedes Tena, JABARI) atorvastatin (Lipitor) tablet 10 mg 10 mg, Oral, Daily, First dose on Thu05/01/23 at 1932008 (Not Given - Provider: Daryl Stone RN - Reason: Patient/family refused - Comment: took dose at morning) 0843 (Given - Provider: Mercedes Tena, JABARI) cholestyramine (Questran) packet 4 g 4 g (1 packet), Oral, Daily, First dose on Thu05/01/23 at [id number] (Given - Provider: Daryl Stone RN) 0900 (Not Given - Provider: Mercedes Tena RN - Reason: Patient/family refused - Comment: pt takes at night) dicyclomine (Bentyl) capsule 10 mg 10 mg, Oral, 2 times daily, First dose on Thu05/01/23 at 2099 2036 (Given - Provider: Daryl Stone RN) 0900 (Not Given - Provider: Mercedes Tena RN - Reason: Patient/family refused) glipiZIDE (Glucotrol) tablet 10 mg 10 mg, Oral, 2 times daily before meals, First dose on Thu05/02/23 at 0700, Substituted for glimepiride (Amaryl). 0658 (Given - Provid er: Daryl Stone RN)1600 (Canceled Entry - Provider: Automatic Discharge Provider - Comment: Automatically canceled at discontinue of medication order) hydroCHLOROthiazide (HYDRODiuril) tablet 12.5 mg(Linked Group 1) 12.5 mg, Oral, Daily, First dose on Thu05/01/23 at 1942011 (Not Given - Provider: Daryl Stone RN - Reason: Patient/family refused - Comment: wants to talk to doctor before taking this med) 0847 (Given - Provider: Mercedes Tena, JABARI) losartan (Cozaar) tablet 100 mg(Linked Group 1) 100 mg, Oral, Daily, First dose on Thu05/01/23 at 1942010 (Not Given - Provider: Daryl Stone RN - Reason: Patient/family refused - Comment: took at morning) 0846 (Given - Provider: Mercedes Tena, JABARI) metFORMIN (Glucophage) tablet 1,000 mg 1,000 mg, Oral, 2 times daily, First dose on Thu05/01/23 at 2100, On hold since Thu05/01/2023 at 1932 until manually unheld 1931 (Held by provider - Provider: Vanessa Byrnes MD - Reason: Other)2100 (Dose Auto Held - Provider: Vanessa Byrnes MD) 0900 (Dose Auto Held - Provider: Vanessa Byrnes MD)1830 (Unheld by provider - Provider: Automatic Discharge Provider) pantoprazole (ProtoNix) EC tablet 40 mg 40 mg, Oral, Daily before breakfast, First dose on Thu05/02/23 at 0700, Substituted for omeprazole (Prilosec). Do not crush, chew, or split. 0616 (Given - Provid er: Daryl Stone RN) PRN Medication Order 04/30/2023 05/01/2023 05/02/2023 acetaminophen (Tylenol) suppository 650 mg(Linked Group 2) 650 mg, Rectal, Every 6 hours PRN, mild pain (1-3), fever, For temp greater than 100.4 F (38 C), Starting on Thu05/01/23 at 1919, Administer if oral route cannot be used. Maximum dose of acetaminophen is 4000 mg from all sources in 24 hours. acetaminophen (Tylenol) tablet 650 mg(Linked Group 2) 650 mg, Oral, Every 6 hours PRN, mild pain (1-3), fever, For temp greater than 100.4 F (38 C), Starting on Thu05/01/23 at 1918, Maximum dose of acetaminophen is 4000 mg from all sources in 24 hours. ondansetron (Zofran) injection 4 mg(Linked Group 3) 4 mg, IntraVENous, Every 6 hours PRN, nausea, vomiting, Starting on Thu05/01/23 at 1918, 1st Line. Give IV if patient is unable to take orally. If inadequate response within 60 minutes, proceed to next-line agent or contact provider if no further options ordered. ondansetron ODT (Zofran-ODT) disintegrating tablet 4 mg(Linked Group 3) 4 mg, Oral, Every 8 hours PRN, nausea, vomiting, Starting on Thu05/01/23 at 1918, 1st Line. If inadequate response within 60 minutes, proceed to next-line agent or contact provider if no further options ordered. Patient should allow tablet to dissolve on tongue. Do not remove from blister pack until just before administering. polyethylene glycol (PEG) 3350 (Miralax) packet 17 g 17 g, Oral, Daily PRN, constipation, Starting on Thu05/01/23 at 1918, 1st line for treatment of constipation - give scheduled if no bowel movement in past 24 hours. Linked Groups Order Group 1: losartan (Cozaar) tablet 100 mgJump to med 100 mg, Oral, Daily, First dose on Thu05/01/23 at 1944 And hydroCHLOROthiazide (HYDRODiuril) tablet 12.5 mgJump to med 12.5 mg, Oral, Daily, First dose on Thu05/01/23 at 1944 Group 2: acetaminophen (Tylenol) tablet 650 mgJump to med 650 mg, Oral, Every 6 hours PRN, mild pain (1-3), fever, For temp greater than 100.4 F (38 C), Starting on Thu05/01/23 at 1918, Maximum dose of acetaminophen is 4000 mg from all sources in 24 hours. Or acetaminophen (Tylenol) suppository 650 mgJump to med 650 mg, Rectal, Every 6 hours PRN, mild pain (1-3), fever, For temp greater than 100.4 F (38 C), Starting on Thu05/01/23 at 1918, Administer if oral route cannot be used. Maximum dose of acetaminophen is 4000 mg from all sources in 24 hours. Group 3: ondansetron ODT (Zofran-ODT) disintegrating tablet 4 mgJump to med 4 mg, Oral, Every 8 hours PRN, nausea, vomiting, Starting on Thu05/01/23 at 1919, 1st Line. If inadequate response within 60 minutes, proceed to next-line agent or contact provider if no further options ordered. Patient should allow tablet to dissolve on tongue. Do not remove from blister pack until just before administering. Or ondansetron (Zofran) injection 4 mgJump to med 4 mg, IntraVENous, Every 6 hours PRN, nausea, vomiting, Starting on Thu05/01/23 at 1919, 1st Line. Give IV if patient is unable to take orally. If inadequate response within 60 minutes, proceed to next-line agent or contact provider if no further options ordered. FOR RECORDS PERTAINING TO PATIENTS WHO ARE OR HAVE BEEN ENROLLED IN A CHEMICAL DEPENDENCY/SUBSTANCEABUSE PROGRAM, SOME INFORMATION MAY BE OMITTED. This clinical summary was aggregated from multiple sources. Caution should be exercised in using it in the provision of clinical care. This summary normalizes information from multiple sources, and as a consequence, information in this document may materially change the coding, format and clinical context of patient data. In addition, data may be omitted in some cases. CLINICAL DECISIONS SHOULD BE BASED ON THE PRIMARY CLINICAL RECORDS. [employer] [facility]. provides no warranty or guarantee of the accuracy or completeness of information in this document.
--- NOTE | 2024-11-10 06:45 | HP.PCM_ITS ---
HPI - General General Date of Admission: 11/10/24 Date of Service: 11/10/24 Chief Complaint: Anemia HPI Narrative dakota COTTON a 74 F who presentsChief Complaint: Anemia Details: CATA AYERS is a 74 F who presents to the office today for reestablishment. [facility] established in 2022 for chronic diarrhea, anemia and GERD. EGD 5.4.23 - Normal esophagus. - Normal stomach. - Small hiatal hernia. - Erythematous duodenopathy. Biopsied Colonoscopy 5.4.23 - Congested mucosa in the sigmoid colon, at the splenic flexure, at the hepatic flexure and in the ascending colon. Biopsied. - One bleeding colonic angiodysplastic lesion. Treated with a monopolar probe. - Two bleeding angiodysplastic lesions in the ileum. Treated with a heater probe. OV 6.6.23 for f/u after endoscopy. Continue PPI, cholestyramine and psyllium OV 8.12.25 here for re establishment. PMHx of MGUS, iron def anemia, PE and DVT. Pt seen by her multimedia educational specialist who recommended f/u with GI for persistent anemia. Patient was on oral iron twice a day however her anemia was refractory. She has had 1 iron infusion. She does notice she is less fatigued now. She does not notice any blood in her stool. When she was oral and oral iron her stools were black. She is no longer having any diarrhea after stopping metformin. She has normal bowel movements with no constipation. CBC W/Diff, Automated Today D64.9 - Anemia, unspecified Stool Occult Blood iFOB Today D64.9 - Anemia, unspecified PFSH Medical History Low iron Shortness of breath on exertion Leg cramps History of echocardiogram History of pulmonary embolism History of DVT (deep vein thrombosis) PONV (postoperative nausea and vomiting) Wears dentures Wears glasses Post-menopausal Diabetes Arthritis Kidney stones Fatty liver Anemia High cholesterol Dietary restriction Gastric reflux Non-smoker History of pain when walking History of edema Hypercholesteremia Type 2 diabetes mellitus Lumbar disc disease Cholelithiasis GERD (gastroesophageal reflux disease) Vitamin B12 deficiency Cystoid macular edema HTN (hypertension) Renal cyst Home Medications ?Medication ?Instructions ?Recorded ?Last Taken ?Type atorvastatin 10 mg tablet 10 mg PO DAILY 04/02/22 Unkn own History glimepiride 4 mg tablet 4 mg PO BID 04/02/22 Unknown History mecobalamin (vitamin B12) 500 mcg 500 mcg PO DAILY Unknown History chewable tablet omeprazole 40 mg capsule,delayed 40 mg PO DAILY Unknown History release losartan 100 0.5 tab PO QHS 06/17/22 Unkn own History mg-hydrochlorothiazide 12.5 mg tablet apixaban 2.5 mg tablet (Eliquis) 2.5 mg PO BID 5 11/06/24 History empagliflozin 25 mg tablet 25 mg PO QAM 09/27/2411/07 History (Jardiance) ferrous sulfate 325 mg (65 mg 325 mg PO BID 09/27/24 U nknown History iron) tablet Allergy/AdvReac Type Severity Reaction Status Date / Time kiwi Allergy Intermediate Swelling Verified 11/07/24 10:41 lisinopril Allergy Intermediate Other Verified 11/07/24 10:41 cat dander (cats) Allergy Itching Verified 11/07/24 10:41 Family History Father Prostate cancer Brother Hx of resection of large bowel PAD (peripheral artery disease) Mother Rheumatoid arthritis Sister Diabetes Brother Diabetes Surgical History History of esophagogastroduodenoscopy (EGD) History of colonoscopy History of shoulder surgery History of partial hysterectomy History of cholecystectomy Social History Smoking Status: Never smoker alcohol intake: never ROS Constitutional Constitutional: Denies fatigue, fever(s), poor appetite, weight gain or weight loss Gastrointestinal Gastrointestinal: Denies belching, bloating, change in bowel habits, change in stool character, chewing difficulty, coffee ground emesis, constipation, cramping, diarrhea, dyspepsia, dysphagia, early satiety, excessive flatus, fecal incontinence, heartburn, hematemesis, hematochezia, hemorrhoids, loose stools, melena, nausea, odynophagia, rectal bleeding, tenesmus, vomiting or weight changes Physical Exam Const alert, oriented x3, no apparent distress and healthy appearing General Appearance: cooperative GI normal to inspection, nondistended, normoactive bowel sounds, soft to palpation, non-tender and non-distended Percussion: normal to percussion Rectal Exam: deferred Assessment & Plan Assessment/Plan (1) Chronic diarrhea: (2) Anemia: (3) GERD (gastroesophageal reflux disease): PLAN: Assessment and Plan Assessment and Plan (1) Anemia: Status: Acute (2) Chronic diarrhea: Status: Chronic Plan: Cata is a 74-year-old female patient here today for reestablishment with the clinic. Patient previously seen in our office in 2022 for issues with anemia and diarrhea. Colonoscopy and EGD in 2022 showing AVMs in the colon. Since then she has been seeing her multimedia educational specialist with downtrending hemoglobin over the past month. Iron deficiency anemia was refractory to oral iron supplementation. She was started on iron infusion and is feeling less fatigued. She is scheduled for 2 more infusions in the future. Patient's multimedia educational specialist did recommend repeating endoscopy. She was scheduled for this today. I have also ordered CBC and fecal occult blood test. Patient's loose stool resolved with discontinuation of metformin. She was started on Jardiance instead however her diabetes is not responding as well to this. She wishes to be referred to endocrinology. - Colonoscopy and EGD - Repeat CBC - Fecal occult blood test - Follow-up after procedure Orders: Orders CBC W/Diff, Automated Today D64.9 - Anemia, unspecified Stool Occult Blood iFOB Today D64.9 - Anemia, unspecified
[2024-11-10] MEDS: Lactated Ringers 1,000 ML 15 ML IV (07:21)
--- NOTE | 2024-11-10 07:30 | PCM.PRE.AN2 ---
ASA Classification* ASA Classification ASA Classification: 3 Assessment & Plan Anesthesia* Anesthesia Assessment Anesthesia Assessment: Discussed sedation and/or anesthesia options, risks, benefits, and alternatives with patient/parents/legal guardian/POA. Questions invited. The patient/parents/legal guardian/POA seems to understand and agrees to proceed with anesthesia plan. Reviewed the physical assessment, medical history, allergy history and patient home medications list prior to surgery/procedure/anesthetic and documented any changes. Performed airway and anesthesia risk assessments. Anesthesia Type Anesthesia Type: MAC History Source History Obtained from:: Patient and Chart Anesthesia Focused Assessment* Temperature: 97.2 F Pulse Rate: 55 Blood Pressure: 146/56 Respiratory Rate: 16 Pulse Ox: 100 Oxygen Delivery Method: Room Air Airway Assessment Mouth opens: >3 cm Mallampati Score: II Teeth Condition: Full, Lower and Upper Neck Range of motion (ROM): Full ROM Labs Anesthesia Preop lab: CBC WBC, (4.4-11.0) 7.7 K/mm3 09/27/24, 10:12 RBC, (4.2-5.4) 3.82 M/mm3 L 09/27/24, 10:12 Hgb, (12.0-15.0) 10.7 g/dL L 09/27/24, 10:12 Hct, (37-47) 34.9 % L 09/27/24, 10:12 Plt Count, (150-450) 333 K/mm3 09/27/24, 10:12 CHEMISTRY Potassium, (3.3-5.1) 3.9 mmol/L 06/10/24, 16:53 Sodium, (133-145) 139 mmol/L 06/10/24, 16:53 BUN, (4-19) 24 mg/dL H 06/10/24, 16:53 Creatinine, (0.70-1.20) 1.26 mg/dL H 06/10/24, 16:53 Glucose, (70-99) 217 mg/dL H 06/10/24, 16:53 COAG Pre-Assessment Diagnosis/Proposed Procedure Planned Operative Procedure(s): COLONOSCOPY, EGD Anesthesia History Anesthesia History - visitor services technician: Anesthesia History - visitor services technician Hx Hospitalization No 11/07/24 10:47 Any Problems With Anesthesia Yes: PONV 11/07/24 10:47 Cholinesterase deficiency No 11/07/24 10:47 You/Your Family Experience No 11/07/24 10:47 fever (hyperthermia) with Relationship Recent Exposure to Contagious No 11/10/24 07:04 Disease Does patient have nerve No 11/07/24 10:47 stimulator Patient instructed to have device shut off --Does patient have Pacemaker No 11/10/24 07:04 or ICD? When Was Last Pacemaker Check QUESTION #4 FULL TEXT: You/Your Family Experience fever (hyperthermia) with Anesthesia Last Oral Intake Last Oral intake: Last Oral Intake NPO since 03:30 11/10/24 07:04 Meds taken in AM with sips of No 11/10/24 07:04 water? Meds patient instructed to take am of surgery Any additional information?: Yes NPO since: 03:30 Meds patient instructed to take am of surgery: 1 8 oz cup prep with Gatorade PONV PONV - visitor services technician: PONV - visitor services technician Female Yes 11/07/24 10:47 HX of Motion Sickness Yes 11/07/24 10:47 HX of N/V After Surgery Yes 11/07/24 10:47 Non-Smoker Yes 11/07/24 10:47 Duration of Surgery greater No 11/07/24 10:47 than 60 minutes Number of Risk Factors 4 11/07/24 10:47 PONV Score Severe Risk 11/07/24 10:47 Any additional information?: No Height & Weight Height & Weight: Anesthesia: Height & Weight Height 5 ft 3 in 11/10/24 07:04 Weight: 75.5 kg 11/10/24 07:04 Body Mass Index (BMI) 29.5 11/10/24 07:04 Respiratory Assessment Respiratory Assessment - visitor services technician: Respiratory Tract Infection Hx - visitor services technician Hx Respiratory Tract Infection No 11/07/24 10:47 Any additional information?: No STOP Sleep Apnea STOP Sleep Apnea - visitor services technician: STOP Sleep Apnea - visitor services technician Hx Hypertension Yes: PER PT, CONTROLLED ON 11/07/24 10:47 MEDS Hx Sleep Apnea No 11/07/24 10:47 CPAP BIPAP Do you snore loudly (louder No 11/07/24 10:47 than talking or can be heard Do you often feel tired/ No 11/07/24 10:47 fatigued/ sleepy during daytime? Has anyone observed you stop No 11/07/24 10:47 breathing during sleep? STOP Results Negative 11/07/24 10:47 QUESTION #5 FULL TEXT : Do you snore loudly (louder than talking or can be heard through closed doors)? Any additional information?: No Tobacco Use History Tobacco Use History - visitor services technician: Tobacco Use History - visitor services technician Tobacco Use Smoking Status Never smoker 11/07/24 10:47 Hx Tobacco Use No 11/07/24 10:47 Years Smoking Packs Smoked per Day Smoking Cessation Date was within the last 15 years Hx Smoking Cessation Date Hx Smoking Cessation Counseling Any additional information?: No Hematologic Medial History Hematologic Hx - visitor services technician: Hematologic Medical Hx - town administrator Hx of Blood Transfusion No 11/07/24 10:47 Hx of Transfusion in last 3 No 11/07/24 10:47 Months Date of Last Transfusion (if within last 3 months) Ever experience any problems No 11/07/24 10:47 with transfusion(s)? Specify any problems Hx of Preganancy in last 3 No 11/07/24 10:47 Months Nurse Filling Out Transfusion MGRIFFITH 11/07/24 10:47 & Questions: Date: 11/07/24 11/07/24 10:47 Time: 10:49 11/07/24 10:47 Patient unable to answer at this time (ie. confused, unrespo Any additional information?: No /Reproduction History /Reproductive History - visitor services technician: /Reproductive Hx- visitor services technician Hx Now No 11/07/24 10:47 Gestational Age (in weeks): EDC: Hx Hx Para Hx Section SAB No 11/07/24 10:47 Any additional information?: No Active Medications Active Medications: Current Medications Generic Name Dose Route Start Last Admin Trade Name Freq PRN Reason Stop Dose Admin Lactated Ringer's 1,000 mls @ 15 mls/hr 11/10/24 06:45 11/10/24 07:21 IV 15 mls/hr .Q48H KELLY Administration PFSH Medical History Low iron Shortness of breath on exertion Leg cramps History of echocardiogram History of pulmonary embolism History of DVT (deep vein thrombosis) PONV (postoperative nausea and vomiting) Wears dentures Wears glasses Post-menopausal Diabetes Arthritis Kidney stones Fatty liver Anemia High cholesterol Dietary restriction Gastric reflux Non-smoker History of pain when walking History of edema Hypercholesteremia Type 2 diabetes mellitus Lumbar disc disease Cholelithiasis GERD (gastroesophageal reflux disease) Vitamin B12 deficiency Cystoid macular edema HTN (hypertension) Renal cyst Home Medications ?Medication ?Instructions ?Recorded ?Last Taken ?Type atorvastatin 10 mg tablet 10 mg PO DAILY 04/02/22 Unknown History glimepiride 4 mg tablet 4 mg PO BID 04/02/22 Unknown History mecobalamin (vitamin B12) 500 mcg 500 mcg PO DAILY 04/02/22 Unknown History chewable tablet omeprazole 40 mg capsule,delayed 40 mg PO DAILY 04/02/22 Unknown History release losartan 100 0.5 tab PO QHS 06/17/22 Unknown History mg-hydrochlorothiazide 12.5 mg tablet apixaban 2.5 mg tablet (Eliquis) 2.5 mg PO BID 09/27/24 11/06/24 History empagliflozin 25 mg tablet 25 mg PO QAM 09/27/24 11/07/24 History (Jardiance) ferrous sulfate 325 mg (65 mg 325 mg PO BID 09/27/24 11/06/24 History iron) tablet Allergy/AdvReac Type Severity Reaction Status Date / Time kiwi Allergy Intermediate Swelling Verified 11/10/24 07:02 lisinopril Allergy Intermediate Other Verified 11/10/24 07:02 cat dander (cats) Allergy Itching Verified 11/10/24 07:02 Family History Father Prostate cancer Brother Hx of resection of large bowel PAD (peripheral artery disease) Mother Rheumatoid arthritis Sister Diabetes Brother Diabetes Surgical History History of esophagogastroduodenoscopy (EGD) History of colonoscopy History of shoulder surgery History of partial hysterectomy History of cholecystectomy Social History Smoking Status: Never smoker alcohol intake: never Review of Systems (Anesthesia) ROS Narrative System reviewed and no additional complaints, except as documented.
--- NOTE | 2024-11-10 07:45 | COLBX_PTH ---
PATIENT: TIFFANY AYERS LOC: EN U#:[id number] AGE/SX: 74/F ROOM: RE11/10/[address]: Dr. Chapin Underwood DO : 1950 BED: DIS: 11/10/2024 SPEC #: [id number] RECD: 11/10/24 10:43 STATUS: JUAN MANUEL REJeniffer #: [id number] ADEN: 11/10/24 07:[address]: Chapin Underwood DEPT: SURGICAL PATHOLOGY RECD BY: Chito Garcia ENTERED: 11/10/24 14:31 SP TYPE: COLON BX OTHR DR: No Primary Care Phys Tissues: A - Duodenum, NOS B - Transverse colon C - Rectum, NOS Procedures: Surgery Specimen Level IV HEADER OPERATION: Colonoscopy with polypectomy and biopsy, EGD PRE-OP DIAGNOSIS: Chronic diarrhea, anemia, GERD TISSUE SUBMITTED: A- Duodenum biopsy, B- Transverse colon polyp, C- Rectal polyp biopsy MICROSCOPIC DIAGNOSIS A. Duodenum, biopsy: * Normal villous architecture with slightly increased intraepithelial lymphocytes - see note. Note: This pattern of injury is etiologically nonspecific?and the differential diagnosis includes sensitivity to gluten and non-gluten proteins, small intestinal bacterial overgrowth, stasis related changes, infection, protein calorie malnutrition, tropical sprue, and medication injury (NSAIDs, Olmesartan / Benicar, Mycophenolic acid, Idelalisib, for example). If celiac disease is a clinical concern, additional clinical studies, such as tTG-IgA, are recommended. B. Transverse colon, polyp, biopsy: * Non-diagnostic - see note. Note: Cautery artifact limits the assessment. No obvious evidence of malignancy is observed in these sections. C. Rectum, polyp, biopsy: * Hyperplastic polyp. MICROSCOPIC DESCRIPTION Slides are reviewed. GROSS DESCRIPTION A. Received in fixative is one container labeled with the patient's name and designated Duodenum biopsy. The specimen consists of two irregular fragments of sumner tissue that measure 0.2 and 0.7 cm. The specimen is totally submitted in one cassette. B. Received in fixative is one container labeled with the patient's name and designated Transverse colon polyp. The specimen consists of one irregular fragment of sumner tissue that measures 0.2 cm. The specimen is totally submitted in one cassette. C. Received in fixative is one container labeled with the patient's name and designated Rectal polyp biopsy. The specimen consists of one irregular fragment of sumner tissue that measures 0.4 cm. The specimen is totally submitted in one cassette. [place] 11/10/2024 CPT:46626l4
--- NOTE | 2024-11-10 08:37 | OP.EGD_ITS ---
Patient Name: Cata Bosch Procedure Date: 11/10/2024 7:59 AM Date of : 1950 Age: 74 Procedure: Upper GI endoscopy Indications: Epigastric abdominal pain, Iron deficiency anemia Providers: Chapin Underwood DO Referring MD: No Primary Care Physician Medicines: Monitored Anesthesia Care Patient Profile: This is a 74 year old female. Refer to note in patient chart for documentation of history and physical. Patient has symptoms. Complications: No immediate complications. Procedure: Pre-Anesthesia Assessment: - Prior to the procedure, a History and Physical was performed, and patient medications and allergies were reviewed. The patient is competent. The risks and benefits of the procedure and the sedation options and risks were discussed with the patient. All questions were answered and informed consent was obtained. Patient identification and proposed procedure were verified by the physician in the pre-procedure area. Mental Status Examination: alert and oriented. Airway Examination: normal oropharyngeal airway and neck mobility. Respiratory Examination: clear to auscultation. CV Examination: normal. Prophylactic Antibiotics: The patient does not require prophylactic antibiotics. Prior Anticoagulants: The patient has taken no anticoagulant or antiplatelet agents. ASA Grade Assessment: II - A patient with mild systemic disease. After reviewing the risks and benefits, the patient was deemed in satisfactory condition to undergo the procedure. The anesthesia plan was to use monitored anesthesia care (MAC). Immediately prior to administration of medications, the patient was re-assessed for adequacy to receive sedatives. The heart rate, respiratory rate, oxygen saturations, blood pressure, adequacy of pulmonary ventilation, and response to care were monitored throughout the procedure. The physical status of the patient was re-assessed after the procedure. After obtaining informed consent, the endoscope was passed under direct vision. Throughout the procedure, the patient's blood pressure, pulse, and oxygen saturations were monitored continuously. The Colonoscope was introduced through the mouth, and advanced to the fourth part of the duodenum. Small bowel enteroscopy was deemed necessary. The upper GI endoscopy was accomplished without difficulty. The patient tolerated the procedure well. Scope In: 8:11:40 AM Scope Out: 8:15:11 AM Total Procedure Duration Time 0 hours 3 minutes 31 seconds Findings: The examined esophagus was normal. The entire examined stomach was normal. Diffuse mildly erythematous mucosa without active bleeding and with no stigmata of bleeding was found in the entire duodenum. Biopsies were taken with a cold forceps for histology. Verification of patient identification for the specimen was done. Estimated blood loss was minimal. Impression: - Normal esophagus. - Normal stomach. - Erythematous duodenopathy. Biopsied. Recommendation: - Discharge patient to home. - Resume previous diet. - Continue present medications. - Await pathology results. Procedure Code(s): --- Professional --- 10427, Small intestinal endoscopy, enteroscopy beyond second portion of duodenum, not including ileum; with biopsy, single or multiple CPT copyright 2021 [employer]. All rights reserved. The codes documented in this report are preliminary and upon board liner operator review may be revised to meet current compliance requirements. Chapin Underwood DO 11/10/2024 8:36:31 AM This report has been signed electronically. Number of Addenda: 0 Note Initiated On: 11/10/2024 7:59 AM
--- NOTE | 2024-11-10 08:37 | OP.PROVAT_ITS ---
11/10/2024 No Primary Care Physician Re : Upper GI endoscopy procedure for Cata Bosch Dear Care Physician This procedure was performed on October. My impressions and recommendations are as follows: Impressions : - Normal esophagus. - Normal stomach. - Erythematous duodenopathy. Biopsied. Recommendations : - Discharge patient to home. - Resume previous diet. - Continue present medications. - Await pathology results. My findings are described in the full procedure note, which is enclosed. If I can be of further assistance, please feel free to contact me at . Sincerely, Chapin Underwood, 11/10/2024 8:36:31 AM This report has been signed electronically.
--- NOTE | 2024-11-10 08:40 | OP.PROVAT_ITS ---
11/10/2024 No Primary Care Physician Re : Colonoscopy procedure for Cata Bosch Dear Care Physician This procedure was performed on October. My impressions and recommendations are as follows: Impressions : - Diverticulosis in the recto-sigmoid colon, in the sigmoid colon and in the descending colon. - One 9 mm polyp in the transverse colon. - One 5 mm polyp in the rectum, removed with a jumbo cold forceps. Resected and retrieved. Recommendations : - Repeat colonoscopy in 5 months for surveillance. - Continue present medications. My findings are described in the full procedure note, which is enclosed. If I can be of further assistance, please feel free to contact me at . Sincerely, Chapin Underwood, 11/10/2024 8:39:33 AM This report has been signed electronically.
--- NOTE | 2024-11-10 08:40 | OP.COLON_ITS ---
Patient Name: Cata Bosch Procedure Date: 11/10/2024 8:15 AM Date of : 1950 Age: 74 Procedure: Colonoscopy Indications: Iron deficiency anemia Providers: Chapin Underwood DO Referring MD: No Primary Care Physician Medicines: Monitored Anesthesia Care Patient Profile: This is a 74 year old female. Refer to note in patient chart for documentation of history and physical. Patient has symptoms. Last Colonoscopy: several years ago. Complications: No immediate complications. Procedure: Pre-Anesthesia Assessment: - Prior to the procedure, a History and Physical was performed, and patient medications and allergies were reviewed. The patient is competent. The risks and benefits of the procedure and the sedation options and risks were discussed with the patient. All questions were answered and informed consent was obtained. Patient identification and proposed procedure were verified by the physician in the pre-procedure area. Mental Status Examination: alert and oriented. Airway Examination: normal oropharyngeal airway and neck mobility. Respiratory Examination: clear to auscultation. CV Examination: normal. Prophylactic Antibiotics: The patient does not require prophylactic antibiotics. Prior Anticoagulants: The patient has taken no anticoagulant or antiplatelet agents. ASA Grade Assessment: II - A patient with mild systemic disease. After reviewing the risks and benefits, the patient was deemed in satisfactory condition to undergo the procedure. The anesthesia plan was to use monitored anesthesia care (MAC). Immediately prior to administration of medications, the patient was re-assessed for adequacy to receive sedatives. The heart rate, respiratory rate, oxygen saturations, blood pressure, adequacy of pulmonary ventilation, and response to care were monitored throughout the procedure. The physical status of the patient was re-assessed after the procedure. After I obtained informed consent, the scope was passed under direct vision. Throughout the procedure, the patient's blood pressure, pulse, and oxygen saturations were monitored continuously. The Colonoscope was introduced through the anus and advanced to the terminal ileum. The colonoscopy was performed without difficulty. The patient tolerated the procedure well. The quality of the bowel preparation was good. The terminal ileum, ileocecal valve, appendiceal orifice, and rectum were photographed. Scope In: 8:18:24 AM Scope Out: 8:30:07 AM Total Procedure Duration Time 0 hours 11 minutes 43 seconds Findings: The perianal and digital rectal examinations were normal. A few small and large-mouthed diverticula were found in the recto-sigmoid colon, sigmoid colon and descending colon. A 9 mm polyp was found in the transverse colon. The polyp was sessile. A 5 mm polyp was found in the rectum. The polyp was sessile. The polyp was removed with a jumbo cold forceps. Resection and retrieval were complete. Verification of patient identification for the specimen was done. Estimated blood loss was minimal. Impression: - Diverticulosis in the recto-sigmoid colon, in the sigmoid colon and in the descending colon. - One 9 mm polyp in the transverse colon. - One 5 mm polyp in the rectum, removed with a jumbo cold forceps. Resected and retrieved. Recommendation: - Repeat colonoscopy in 5 months for surveillance. - Continue present medications. Procedure Code(s): --- Professional --- 73943, Colonoscopy, flexible; with biopsy, single or multiple CPT copyright 2021 [employer]. All rights reserved. The codes documented in this report are preliminary and upon live truck operator review may be revised to meet current compliance requirements. Chapin Underwood DO 11/10/2024 8:39:33 AM This report has been signed electronically. Number of Addenda: 0 Note Initiated On: 11/10/2024 8:15 AM
--- NOTE | 2024-11-10 08:40 | PCM.POST.ANE ---
Anesthesia: Postop Eval I Current Vital Signs Temperature: 97.1 F Pulse Rate: 62 Blood Pressure: 117/63 Respiratory Rate: 16 Pulse Ox: 100 Oxygen Delivery Method: Room Air Assessment Airway patent: Yes Spontaneous unlabored respirations: Yes Mental status: Awake and Calm nausea: No Vomiting: No Anesthesia Complication: No Fluid Hydration Crystalloid volume administer (ml): 600 Total IV fluid infused: 600 Progress Note Anesthesia document: Postop Eval 1 completed: Yes
--- NOTE | 2024-11-10 10:45 | PCM.POSTANE2 ---
Anesthesia Postop Eval I Sum Postop Eval Completion status Anesthesia document: Postop Eval 1 completed: Yes Anesthesia Postop Eval I Summary Anesthesia Postop Eval I Summary: Anesthesia Postop Eval I: Assessment Summary Airway patent Yes 11/10/24 08:41 [email or web address] Spontaneous unlabored Yes 11/10/24 08:41 [email or web address] respirations Mental status Awake,Calm 11/10/24 08:41 [email or web address] nausea No 11/10/24 08:41 [email or web address] Vomiting No 11/10/24 08:41 [email or web address] Anesthesia Postop Eval I: Fluid Summary Crystalloid volume administer 600 11/10/24 08:41 [email or web address] (ml) Colloids volume administered ( ml) Blood Product volume administered (ml) Total IV fluid infused 600 11/10/24 08:41 [email or web address] Anesthesia Postop Eval I: Summary Notes Anesthesia Complication No 11/10/24 08:41 [email or web address] Anesthesia Complication Comment: Post-operative progress note Anesthesia: Postop Eval II Evaluation Mental status: Awake and Calm Pain Level: 0 nausea: No Vomiting: No Complications Anesthesia Complication: No
== END 2024-11-10 09:29 | disposition home or self-care (01) ==
LOC: EN 06:38 → AC 06:38
PROVIDERS: Visit Provider Internal Medicine Gastroenterology
PROC: 0DJD8ZZ Inspection of Lower Intestinal Tract, Via Natural or Artificial Opening Endoscopic (ICD-10-PCS; CPT 45378; principal; 2024-11-10 07:40)
DX: K52.9 Noninfective gastroenteritis and colitis, unspecified (principal); E11.9 Type 2 diabetes mellitus without complications; Z90.710 Acquired absence of both cervix and uterus; E78.00 Pure hypercholesterolemia, unspecified; Z79.84 Long term (current) use of oral hypoglycemic drugs; I10 Essential (primary) hypertension; Z86.711 Personal history of pulmonary embolism; K21.9 Gastro-esophageal reflux disease without esophagitis; K63.5 Polyp of colon; K62.1 Rectal polyp; Z86.718 Personal history of other venous thrombosis and embolism; K57.30 Diverticulosis of large intestine without perforation or abscess without bleeding; Z79.899 Other long term (current) drug therapy; Z79.01 Long term (current) use of anticoagulants; Z90.49 Acquired absence of other specified parts of digestive tract; D50.9 Iron deficiency anemia, unspecified; K31.89 Other diseases of stomach and duodenum
CPT/HCPCS: 44361; 45380; 82962; 88305; J2405